=== PATIENT | male | born 1940 | race Caucasian/White ===

== ENCOUNTER 2020-06-14 11:45 | Outpatient (REF) | payer MEDICARE, SELFPAY ==
--- NOTE | 2020-06-14 | XR_ITS ---
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 FINDINGS: There is disc atelectasis left posterior medial base versus borderline sliding hiatal hernia. The lungs otherwise clear. The costophrenic sulci are well-defined. The heart is normal in size. The hilar and mediastinal contours are normal. No acute bony abnormality. XR/XR chest 2V IMPRESSION: 1. Disc atelectasis left posterior medial base versus borderline sliding hiatal hernia. 2. No airspace consolidation or groundglass opacities.
== END 2020-06-14 11:46 | disposition home or self-care (01) ==
LOC: HO.HMGCX 11:45
PROVIDERS: PCP Internal Medicine; Visit Provider Internal Medicine
DX: J44.1 Chronic obstructive pulmonary disease with (acute) exacerbation (principal)
CPT/HCPCS: 71046

== ENCOUNTER 2020-06-19 16:37 | Inpatient (IN) | payer MEDICARE, OTHER, SELFPAY ==
[2020-06-19] VITALS (7 sets, daily range): BP systolic 134–145; BP diastolic 59–89; PULSE 81–100; RESP 16–24; TEMP 36.6–37.7; O2SAT 4–95; BMI 31.1
--- NOTE | 2020-06-19 16:55 | XR_ITS ---
EXAMINATION: XR CHEST CLINICAL INFORMATION: Shortness of breath and chest pain. COMPARISON: 06/14/2020 TECHNIQUE: Frontal view of the chest was obtained. FINDINGS: Cervical fusion hardware noted. Cardiac leads overlie the chest. The lungs are well expanded. Bronchial wall thickening noted. There is no focal consolidation, edema, or effusion. No pneumothorax. The cardiomediastinal silhouette is within normal limits. No acute osseous abnormality. XR/XR chest 1V IMPRESSION: No dense consolidation. Bronchial wall thickening can be seen with a small airways process such as asthma or atypical/viral infection.
--- NOTE | 2020-06-19 16:55 | ECG_ITS ---
Test Reason : DYSPNES Blood Pressure : / mmHG Vent. Rate : 089 BPM Atrial Rate : 089 BPM P-R Int : 170 ms QRS Dur : 082 ms QT Int : 372 ms P-R-T Axes : 068 050 023 degrees QTc Int : 452 ms Sinus rhythm with occasional Premature ventricular complexes and Premature atrial complexes Minimal voltage criteria for LVH, may be normal variant Possible Inferior infarct (cited on or before 15-AUG-2015) Abnormal ECG When compared with ECG of 15-AUG-2015 10:03, Premature ventricular complexes are now Present Premature atrial complexes are now Present Nonspecific T wave abnormality now evident in Inferior leads Referred By: Shahbaz Echeverria Electronically Signed By:Jamie Wilsno
[2020-06-19] MEDS: methylPREDNISolone Sod Succ/PF 125 MG/2 ML VIAL IVPUSH (17:13)
[2020-06-19 17:17] LABS: Basophils Absolute Auto 0.1 X10*3/uL (0.0-0.2); Basophils Percent Auto 0.3 % (0-2); Eosinophils Absolute Auto 0.2 X10*3/uL (0.0-0.4); Eosinophils Percent Auto 1.1 % (0-4); Hematocrit 48.2 % (42-52); Hemoglobin 15.3 g/dl (14.0-18.0); Imm Gran Abs Auto 0.07 X10*3/uL (0.00-0.03); Imm Gran Pct Auto 0.5 % (0.0-0.4); Lymphocytes Absolute Auto 2.1 X10*3/uL (1.2-4.9); Lymphocytes Percent Auto 13.5 % (20-40); MANUAL DIFF FLAG SCAN; Mean Corpuscular HGB Conc 31.7 g/dl (31.0-36.0); Mean Corpuscular Volume 94.5 fL (80-98); Mean Platelet Volume 9.8 fL (9.4-12.4); Monocytes Absolute Auto 1.9 X10*3/uL (0.1-1.2); Monocytes Percent Auto 12.6 % (2-11); Platelet Count 217 X10*3/uL (160-400); Red Cell Distribution Width 12.2 % (11.0-16.0); SCAN SMEAR FLAG 1; White Blood Count 15.3 X10*3/uL (4.8-10.8)
[2020-06-19] MEDS: Albuterol Sulfate 90 MCG 8 GM INHALER 4 PUFF INHALE (17:19)
[2020-06-19 17:20] LABS: D Dimer 558 NG/ML; Partial Thromboplastin Time 28.9 SEC (24.1-38.0)
[2020-06-19] MEDS: Benzonatate 100 MG CAPSULE 200 MG PO (17:36)
[2020-06-19 17:45] LABS: B Type Natriuretic Peptide 54 pg/mL (<100); Troponin-I High Sensitivity 14.9 ng/L (<3.5-35.0)
[2020-06-19 17:46] LABS: SLIDE REVIEW VERIFIED
[2020-06-19 17:49] LABS: Alanine Aminotransferase 22 U/L (0-40); Alkaline Phosphatase 76 U/L (39-117); Anion Gap 18 (12-20); Aspartate Amino Transferase 20 U/L (5-37); Bilirubin Total 0.6 mg/dL (0.0-1.0); Blood Urea Nitrogen 18 mg/dL (9-16); Calcium 8.8 mg/dL (8.4-10.2); Carbon Dioxide 26 mmol/L (22-29); Chloride 101 mmol/L (96-108); Creatinine Clr Calc Pharmacy 52.2; Estimated Glomerular Filt Rate > 60; Glucose Random 92 mg/dL (60-115); Potassium 4.7 mmol/l (3.3-5.1); Sodium 140 mmol/L (135-145); Total Protein 7.4 g/dL (6.5-8.0)
[2020-06-19 17:50] LABS: Lactic Acid 0.9 mmol/L (0.5-2.0)
[2020-06-19 17:55] LABS: COVID-19 Test Negative (Negative)
--- NOTE | 2020-06-19 18:01 | CT_ITS ---
EXAMINATION: CT ANGIOGRAM OF THE CHEST WITH AND WITHOUT CONTRAST (CT PULMONARY ANGIOGRAM FOR PE) CLINICAL INFORMATION: Reason for Exam Chest pain, shortness of breath, rule out PE COMPARISON: Chest x-ray 06/19/2020. CT abdomen pelvis 08/15/2015. TECHNIQUE: Prior to contrast administration, noncontrast localization images were obtained. Subsequently, multidetector volumetric imaging was performed from the thoracic inlet to below the diaphragms following the administration of 68 mL Omnipaque 350 intravenous contrast. No contrast reaction reported Sagittal, coronal, and MIP oblique sagittal reformatted images were obtained on the CT workstation, uploaded to PACS, and reviewed. This CT examination was performed using dose optimization techniques as appropriate, variously including the following: *Automated exposure control *Adjustment of mA and/or kV according to patient size (this includes techniques or standardized protocols for targeted exams where dose is matched to indication/reason for exam; i.e. extremities or head) *Use of iterative reconstruction technique Total exam dose-length product 387 mGy-cm FINDINGS: QUALITY OF STUDY/CONTRAST BOLUS: Satisfactory. PULMONARY ARTERIES: No central or segmental pulmonary emboli. THORACIC AORTA: No aneurysm or dissection. There are vascular calcifications of the thoracic aorta. LUNG: There are a few scattered small hazy and groundglass opacities in the lung parenchyma bilaterally, right greater than left, consistent with inflammatory or infectious etiology. May be atypical infection, including Covid 19. There is linear atelectasis at lung bases. PLEURA: No pleural effusion or pneumothorax. MEDIASTINUM: Normal heart size. No pericardial effusion. No hilar or mediastinal lymphadenopathy. No evidence of septal bowing or right heart strain. Moderate volume coronary artery calcifications. CHEST WALL/AXILLA: No axillary or internal mammary lymphadenopathy. OSSEOUS STRUCTURES: No acute or suspicious osseous abnormality. Multilevel degenerative spondylosis of the spine. UPPER ABDOMEN: Status post cholecystectomy. There is a 2 cm cyst upper pole of left kidney Small hypodensities in liver consistent with hepatic cysts unchanged since 2016. There is fatty atrophy of the pancreas. No inflammation or mass of the pancreas. There is a 1.3 cm nodule right adrenal gland. Density measurement of 24 Hounsfield units. This is nonspecific on a postcontrast study. This is new since prior study CT exam 08/15/2015.. Image 56/63 series 5. No reflux of contrast into the hepatic veins to suggest elevated right heart pressures. CT/CT angio chest PE protocol IMPRESSION: 1. No evidence of pulmonary embolism. 2. There are a few scattered small hazy groundglass opacities and lung parenchyma consistent with atypical infection including Covid 19. Clinically correlate. 3. Status post cholecystectomy. 4. 1.3 cm right adrenal nodule is new since CAT scan 08/15/2015 but indeterminate on this postcontrast exam for etiology. A dedicated CT adrenal study would be helpful for further evaluation. 5. Hepatic cysts. 6. Upper pole left renal cyst. VTE: negative
[2020-06-19 18:06] LABS: Appearance Urine CLEAR; Color Urine YELLOW; Glucose Urine UA NEG (NEG); Leukocyte Esterase Urine NEG (NEG); Nitrite Urine NEG (NEG); Urine Blood NEG (NEG); Urine Ketones NEG (NEG); Urine Protein NEG (NEG-TRACE)
[2020-06-19] MEDS: iohexoL 350 MG/ML 100 ML INFUS..BTL IV (18:46)
--- NOTE | 2020-06-19 19:47 | ED_ITS ---
HPI - General Adult General Chief complaint: Dyspnea Stated complaint: cp Time Seen by Provider: 06/19/20 16:54 Source: patient Limitations: no limitations History of Present Illness HPI narrative: 80-year-old male who presents emergency department for evaluation of chest pain, back pain and shortness of breath. The patient states that he was recently treated for pneumonia on May 24, 2020 that he never got over these symptoms. He cannot recount details of his treatment with the medications that he was taking for pneumonia. He states that he had a sudden onset of shortness of breath and chest pain. He states the symptoms started 1 hour prior to coming to the emergency department. He states that the pain is located in the center of his chest wall. The pain is a sharp constant pain that did radiate to his back. The pain was worse with breathing and with movement. He states he has had a cough which is nonproductive. He denied fever or chills. The patient does have a history asthma/COPD. Related Data Allergies Allergy/AdvReac Type Severity Reaction Status Date / Time ibuprofen Allergy Unknown Gastrointestinal Verified 06/19/20 20:06 Upset Review of Systems Review of Systems: Yes all other systems are reviewed and are negative Neurologic: Reports Abnormal speech present [facility] Past Medical History [facility] Narrative: The patient has a history of hypertension, asthma/COPD, he is a former smoker, but quit 40 years ago, he denies current tobacco use, denies alcohol use, denies drug use. Medical History (Updated 06/19/20 @ 20:07 by Shahbaz Echeverria MD) HTN (hypertension) Social History Social History Smoking Status: Former smoker Smoked in Last 30 Days: No Use of substances other than those prescribed or required for medical reasons: No Advance Directives: No Advance Directives Information Provided: No Physical Exam Vital Signs: Vital Signs: Last Vital Signs Temp 99.0 F 06/19/20 18:00 Pulse 100 06/19/20 18:00 Resp 22 H 06/19/20 18:00 BP 139/75 06/19/20 18:00 Pulse Ox 4 L 06/19/20 18:00 Body Mass Index 31.1 Const: General: cooperative and ill appearing (Respiratory distress) acutely Nutritional Appearance: obese Orientation/consciousness: oriented to person and oriented to place Limitations: no limitations HENMT: Head: Yes normal to inspection, Yes normocephalic and Yes atraumatic Ears: external ears normal General nose exam: Normal external nose present Face and sinus: Yes normal facial exam Mouth: Normal oral and palatal mucosa present Throat: Yes posterior oropharynx normal Eyes: Periorbital: periorbital findings normal Eyelids: Yes eyelids normal Conjunctivae: conjunctivae normal Sclerae: sclerae normal Corneas: corneas normal Pupils: Equal, round and reactive pupils present Direct Ophthalmoscopy: normal light reflex Neck: Neck: Yes full ROM, Yes no lymphadenopathy, Yes no meningeal signs, Yes trachea midline and Yes supple Chest: Chest palpation & inspection: normal inspection of the chest and tenderness sternum (Moderate) Resp: Effort & Inspection: normal respiratory effort Auscultation: crackles bilateral, rales bilateral and rhonchi lower bilaterally Cardio: Rate: regular rate Rhythm: regular rhythm Heart sounds: S1 normal heart sound present, S2 normal heart sound present and no murmurs GI: Inspection: Yes normal to inspection Palpation (GI): Soft to palpation, nontender, no guarding, not rigid and No hepatosplenomegaly present : General: Yes no CVA tenderness Back/Spine/Pelvis: Back: no CVA tenderness Cervical Spine: normal cervical lordosis Thoracic/Lumbar Spine: thoracic and lumbar spine normal to inspection Skin: Lesions: no lesions Rashes: no rashes Wounds: no wounds Neuro: General: oriented to person, oriented to place and no meningeal signs Cranial nerves: Yes Equal, round and reactive pupils present Cognition (Neuro): normal cognition Speech: Abnormal speech present Motor exam (neuro): 5/5 motor strength present throughout Extrem: General: Yes normal to inspection and Yes full ROM Psych: Appearance: well kempt Mental Status: mental status grossly normal Speech and movement: Normal speech and movement present Affect: normal affect Attitude: cooperative Thought process: Normal thought process present Thought content: Normal thought content present Course Course Course Narrative: 80-year-old male who presented to the emergency department for evaluation sudden onset of chest pain and shortness of breath 1 hour prior to coming to the emergency department patient does have a history emphysema/asthma and was treated in April 2020 for pneumonia which he believes he did not fully recover from. On presentation the patient was hypoxic with an O2 saturation of 89% on room air, he was tachypneic with a respiratory rate of 17, temperature was 99? F blood pressure was 143/89. The patient's lung exam r evealed diffuse wheezing, rhonchi and rales. The patient was given Solu-Medrol 125 mg IV, albuterol inhaler x4 puffs and placed on oxygen. Patient required 5 L/minute oxygen via nasal cannula to maintain O2 saturations above 90%. Chest x-ray revealed no acute disease, D-dimer was elevated therefore a CT a pulmonary embolism protocol was obtained. CT scan was consistent with an atypical pneumon ia, no pulmonary embolism or dissection was noted. The patient's COVID-19 screen is negative. I ordered Zosyn 4.5 g IV to treat the patient for an atypical pneumonia. I did discuss the patient's presentation with the covering hospitalist the patient will be admitted for further management. Initial troponin was 14.9 which is not elevated but detectable. I did order a repeat 3 hour troponin which is pending. His 12 EKG did not reveal any acute ST segment elevation or depression. Medical Decision Making Lab Data Result diagrams: 06/19/20 17:04 06/19/20 17:04 Labs: Lab Results 06/19/20 06/19/20 06/19/20 Range/Units 17:04 17:04 17:04 WBC 15.3 H (4.8-10.8) X10*3/uL RBC 5.10 (4.60-5.80) X10*6/uL Hgb 15.3 (14.0-18.0) g/dl Hct 48.2 (42-52) % MCV 94.5 (80-98) fL MCH 30.0 (27.0-33.0) pg MCHC 31.7 (31.0-36.0) g/dl RDW 12.2 (11.0-16.0) % Plt Count 217 (160-400) X10*3/uL MPV 9.8 (9.4-12.4) fL Immature Gran % (Auto) 0.5 H (0.0-0.4) % Neut % (Auto) 72.0 (45-73) % Lymph % (Auto) 13.5 L (20-40) % [place] % (Auto) 12.6 H (2-11) % Eos % (Auto) 1.1 (0-4) % Baso % (Auto) 0.3 (0-2) % Lymph # (Auto) 2.1 (1.2-4.9) X10*3/uL [place] # (Auto) 1.9 H (0.1-1.2) X10*3/uL Eos # (Auto) 0.2 (0.0-0.4) X10*3/uL Baso # (Auto) 0.1 (0.0-0.2) X10*3/uL Abs Immat Gran (auto) 0.07 H (0.00-0.03) X10*3/uL Absolute Neuts (auto) 11.0 H (2.0-8.3) X10*3/uL Absolute Nucleated RBC 0.000 (0.0-0.012) X10*3/uL Nucleated RBC % (auto) 0.0 (0.0-0.2) /100WBC Smear Tech's Comments VERIFIED APTT 28.9 (24.1-38.0) SEC D-Dimer 558 NG/ML Sodium 140 (135-145) mmol/L Potassium 4.7 (3.3-5.1) mmol/l Chloride 101 (96-108) mmol/L Carbon Dioxide 26 (22-29) mmol/L Anion Gap 18 (12-20) BUN 18 H (9-16) mg/dL Creatinine 1.13 (0.5-1.4) mg/dL Estim Creat Clear Calc 52.2 Estimated GFR > 60 Random Glucose 92 (60-115) mg/dL Lactic Acid (0.5-2.0) mmol/L Calcium 8.8 (8.4-10.2) mg/dL Total Bilirubin 0.6 (0.0-1.0) mg/dL AST 20 (5-37) U/L ALT 22 (0-40) U/L Alkaline Phosphatase 76 (39-117) U/L Troponin I High Sens (<3.5-35.0) ng/L B-Natriuretic Peptide (<100) pg/mL Total Protein 7.4 (6.5-8.0) g/dL Albumin 4.0 (3.5-5.0) g/dL Urine Color Urine Appearance Urine pH (5.0-8.0) Ur Specific [employer] (1.005-1.025) Urine Protein (NEG-TRACE) MG/DL Urine Glucose (UA) (NEG) MG/DL Urine Ketones (NEG) MG/DL Urine Blood (NEG) Urine Nitrite (NEG) Ur Leukocyte Esterase (NEG) COVID-19 (HECTOR) (Negative) COVID-19 Clin Com 06/19/20 06/19/20 06/19/20 Range/Units 17:04 17:04 17:18 WBC (4.8-10.8) X10*3/uL RBC (4.60-5.80) X10*6/uL Hgb (14.0-18.0) g/dl Hct (42-52) % MCV (80-98) fL MCH (27.0-33.0) pg MCHC (31.0-36.0) g/dl RDW (11.0-16.0) % Plt Count (160-400) X10*3/uL MPV (9.4-12.4) fL Immature Gran % (Auto) (0.0-0.4) % Neut % (Auto) (45-73) % Lymph % (Auto) (20-40) % [place] % (Auto) (2-11) % Eos % (Auto) (0-4) % Baso % (Auto) (0-2) % Lymph # (Auto) (1.2-4.9) X10*3/uL [place] # (Auto) (0.1-1.2) X10*3/uL Eos # (Auto) (0.0-0.4) X10*3/uL Baso # (Auto) (0.0-0.2) X10*3/uL Abs Immat Gran (auto) (0.00-0.03) X10*3/uL Absolute Neuts (auto) (2.0-8.3) X10*3/uL Absolute Nucleated RBC (0.0-0.012) X10*3/uL Nucleated RBC % (auto) (0.0-0.2) /100WBC Smear Tech's Comments APTT (24.1-38.0) SEC D-Dimer NG/ML Sodium (135-145) mmol/L Potassium (3.3-5.1) mmol/l Chloride (96-108) mmol/L Carbon Dioxide (22-29) mmol/L Anion Gap (12-20) BUN (9-16) mg/dL Creatinine (0.5-1.4) mg/dL Estim Creat Clear Calc Estimated GFR Random Glucose (60-115) mg/dL Lactic Acid 0.9 (0.5-2.0) mmol/L Calcium (8.4-10.2) mg/dL Total Bilirubin (0.0-1.0) mg/dL AST (5-37) U/L ALT (0-40) U/L Alkaline Phosphatase (39-117) U/L Troponin I High Sens 14.9 (<3.5-35.0) ng/L B-Natriuretic Peptide 54 (<100) pg/mL Total Protein (6.5-8.0) g/dL Albumin (3.5-5.0) g/dL Urine Color Urine Appearance Urine pH (5.0-8.0) Ur Specific [employer] (1.005-1.025) Urine Protein (NEG-TRACE) MG/DL Urine Glucose (UA) (NEG) MG/DL Urine Ketones (NEG) MG/DL Urine Blood (NEG) Urine Nitrite (NEG) Ur Leukocyte Esterase (NEG) COVID-19 ([facility]CTOR) Negative (Negative) COVID-19 Clin Com See Note 06/19/20 Range/Units 17:58 WBC (4.8-10.8) X10*3/uL RBC (4.60-5.80) X10*6/uL Hgb (14.0-18.0) g/dl Hct (42-52) % MCV (80-98) fL MCH (27.0-33.0) pg MCHC (31.0-36.0) g/dl RDW (11.0-16.0) % Plt Count (160-400) X10*3/uL MPV (9.4-12.4) fL Immature Gran % (Auto) (0.0-0.4) % Neut % (Auto) (45-73) % Lymph % (Auto) (20-40) % [place] % (Auto) (2-11) % Eos % (Auto) (0-4) % Baso % (Auto) (0-2) % Lymph # (Auto) (1.2-4.9) X10*3/uL [place] # (Auto) (0.1-1.2) X10*3/uL Eos # (Auto) (0.0-0.4) X10*3/uL Baso # (Auto) (0.0-0.2) X10*3/uL Abs Immat Gran (auto) (0.00-0.03) X10*3/uL Absolute Neuts (auto) (2.0-8.3) X10*3/uL Absolute Nucleated RBC (0.0-0.012) X10*3/uL Nucleated RBC % (auto) (0.0-0.2) /100WBC Smear Tech's Comments APTT (24.1-38.0) SEC D-Dimer NG/ML Sodium (135-145) mmol/L Potassium (3.3-5.1) mmol/l Chloride (96-108) mmol/L Carbon Dioxide (22-29) mmol/L Anion Gap (12-20) BUN (9-16) mg/dL Creatinine (0.5-1.4) mg/dL Estim Creat Clear Calc Estimated GFR Random Glucose (60-115) mg/dL Lactic Acid (0.5-2.0) mmol/L Calcium (8.4-10.2) mg/dL Total Bilirubin (0.0-1.0) mg/dL AST (5-37) U/L ALT (0-40) U/L Alkaline Phosphatase (39-117) U/L Troponin I High Sens (<3.5-35.0) ng/L B-Natriuretic Peptide (<100) pg/mL Total Protein (6.5-8.0) g/dL Albumin (3.5-5.0) g/dL Urine Color YELLOW Urine Appearance CLEAR Urine pH 6.0 (5.0-8.0) Ur Specific [employer] 1.020 (1.005-1.025) Urine Protein NEG (NEG-TRACE) MG/DL Urine Glucose (UA) NEG (NEG) MG/DL Urine Ketones NEG (NEG) MG/DL Urine Blood NEG (NEG) Urine Nitrite NEG (NEG) Ur Leukocyte Esterase NEG (NEG) COVID-19 ([facility]CTOR) (Negative) COVID-19 Clin Com ECG Data Attestation: I personally reviewed and interpreted this ECG as follows: Interpretation: 1653: Sinus rhythm with occasional PVC, rate of 89, normal [place], QRS and QTC intervals, small Q-waves in lead 2, 3 and AVF, peaked T-wave in V1, LVH by voltage criteria, no old EKG for comparison. Critical Care Time Critical Care Time Total Critical Care Time: 45 Attestation: Critical Care: The patient was critically ill with a high probability of imminent or life threatening deterioration. I spent greater than 30 minutes of discontinuous time evaluating the patient,delivering critical care at the bedside, discussing and evaluating pertinent data with consultants. Critical care time does not include time spent performing separately billable procedures or teaching. Total time spent performing critical care was 45 minutes. Discharge Plan Discharge Clinical Impression: Acute exacerbation of chronic obstructive airways disease, Hypoxia Pneumonia Qualifiers: Pneumonia type: due to unspecified organism Laterality: bilateral Lung location: unspecified part of lung Qualified Code(s): J18.9 - Pneumonia, unspecified organism Patient Disposition: Admitted As Inpatient
--- NOTE | 2020-06-19 19:54 | PC.NURSE ---
plan for pt to be admitted at this time pt o2sat 92-93% on 5L oxygen via nasal canula, it was noted to drop to 86% with a good pleth when pt did not have NC properly placed in his nose. Pt alert and aware x3, responding appropriately to conversation, congested cough noted.
[2020-06-19] MEDS: Piperacillin Sodium/Tazobactam 4.5 GM in 0.9 % Sodium Chloride 100 ML IV (20:13)
[2020-06-19 20:59] LABS: Troponin-I High Sensitivity 12.3 ng/L (<3.5-35.0)
--- NOTE | 2020-06-19 21:30 | P.HPHOSP_ITS ---
History of Present Illness Date of Service: 06/19/20 Chief Complaint: Shortness of breath and cough 80-year-old male with history of HTN and COPD with chest pain and back pain as well as shortness of breath. On or about May 24, he was evaluated in walkin clinic and prescribed Azithromycin by Dr. Marvin Carey, also given 5 day course of prednisone at that time but has not quite recovered. He tested negati ve for covid around that time and today. Today, he had acute onset of shortness of breath and chest and back pain around 1 pm. He relates a sharp, constant mid chest pain that radiates to the back, he has had similar pain the day prior and took oxycodone-Acetamenophen. He has a wet cough since April, no fever or chills. CXR shows no Pneumonia. CTA of chest show no PA but some ground-glass opacities in lung parenchyma consistent with atypical infection including Covid 19. Has been given Zosyn in ED, Solumedrol and Albuterol Nebulizer. Review of Systems Review of Systems: Yes all other systems are reviewed and are negative Constitutional: Constitutional: Denies chills and Denies fever(s) Cardiovascular: Cardiovascular: Reports chest pain and Reports dyspnea Respiratory: Respiratory: Reports cough and Reports dyspnea Gastrointestinal: Gastrointestinal: Denies abdominal pain, Denies nausea and Denies vomiting PMFSH Medical History BPH (benign prostatic hyperplasia) COPD (chronic obstructive pulmonary disease) HTN (hypertension) Pertinent family history: Mother had diabetes Social History Smoking Status: Former smoker Tobacco Type: Cigarette service: No Current occupational status: retired [employer] Allergies Allergy/AdvReac Type Severity Reaction Status Date / Time ibuprofen Allergy Unknown Gastrointestinal Verified 06/19/20 20:06 Upset Home Medications Medication Instructions Recorded Confirmed Type Trelegy Ellipta 1 inh INHALATION BEDTIME 06/19/20 06/19/20 History albuterol sulfate [ProAir HFA] 2 puff INHALATION QID PRN 06/19/20 06/19/20 History atenolol 25 mg PO DAILY 06/19/20 06/19/20 History fluticasone propionate 1 spray INTRANASAL DAILY 06/19/20 06/19/20 History losartan 100 mg PO DAILY 06/19/20 06/19/20 History oxycodone-acetaminophen 1 tab PO QID PRN 06/19/20 06/19/20 History tamsulosin 0.4 mg PO BEDTIME 06/19/20 06/19/20 History Physical Exam Vital Signs and Narrative: Vital Signs: Last Vital Signs Temp 99.8 F 06/19/20 20:00 Pulse 100 06/19/20 20:00 Resp 22 H 06/19/20 20:00 BP 143/83 H 06/19/20 20:00 Pulse Ox 4 L 06/19/20 20:00 Body Mass Index 31.1 Const: Orientation/consciousness: patient oriented x3 Eyes: Visual Blanco: normal visual blanco by confrontation Sclerae: sclerae normal Neck: Yes no lymphadenopathy and Yes supple Resp: Effort & Inspection: normal respiratory effort, able to speak in complete sentences and no audible wheezes Cardio: Jugular venous distension: no JVD Rhythm: regular rhythm Heart sounds: S1 normal heart sound present and S2 normal heart sound present GI: Inspection: Yes normal to inspection Skin: General skin exam: no rashes or lesions noted Neuro: General: patient oriented x3 Motor exam (neuro): 5/5 motor strength present throughout Extrem: Right upper extremity: no cyanosis and no edema Left upper extremity: no cyanosis and no edema Psych: Appearance: grossly normal Results Labs CBC and Chem 7: 06/20/20 05:39 06/21/20 05:53 Labs: Laboratory Results - last 24 hr 06/19/20 06/19/20 06/19/20 17:04 17:04 17:04 MCV 94.5 MCH 30.0 MCHC 31.7 RDW 12.2 Plt Count 217 MPV 9.8 Immature Gran % (Auto) 0.5 H Neut % (Auto) 72.0 Lymph % (Auto) 13.5 L [place] % (Auto) 12.6 H Eos % (Auto) 1.1 Baso % (Auto) 0.3 Lymph # (Auto) 2.1 [place] # (Auto) 1.9 H Eos # (Auto) 0.2 Baso # (Auto) 0.1 Abs Immat Gran (auto) 0.07 H Absolute Neuts (auto) 11.0 H Absolute Nucleated RBC 0.000 Nucleated RBC % (auto) 0.0 Smear Tech's Comments VERIFIED APTT 28.9 D-Dimer 558 Anion Gap 18 Estim Creat Clear Calc 52.2 Estimated GFR > 60 Random Glucose 92 Lactic Acid Calcium 8.8 Total Bilirubin 0.6 AST 20 ALT 22 Alkaline Phosphatase 76 Troponin I High Sens B-Natriuretic Peptide Total Protein 7.4 Albumin 4.0 Urine Color Urine Appearance Urine pH Ur Specific [place] Urine Protein Urine Glucose (UA) Urine Ketones Urine Blood Urine Nitrite Ur Leukocyte Esterase COVID-19 ([facility]) COVID-19 Clin Com 06/19/20 06/19/20 06/19/20 17:04 17:04 17:18 MCV MCH MCHC RDW Plt Count MPV Immature Gran % (Auto) Neut % (Auto) Lymph % (Auto) [place] % (Auto) Eos % (Auto) Baso % (Auto) Lymph # (Auto) [place] # (Auto) Eos # (Auto) Baso # (Auto) Abs Immat Gran (auto) Absolute Neuts (auto) Absolute Nucleated RBC Nucleated RBC % (auto) Smear Tech's Comments APTT D-Dimer Anion Gap Estim Creat Clear Calc Estimated GFR Random Glucose Lactic Acid 0.9 Calcium Total Bilirubin AST ALT Alkaline Phosphatase Troponin I High Sens 14.9 B-Natriuretic Peptide 54 Total Protein Albumin Urine Color Urine Appearance Urine pH Ur Specific [place] Urine Protein Urine Glucose (UA) Urine Ketones Urine Blood Urine Nitrite Ur Leukocyte Esterase COVID-19 ([facility]) Negative COVID-Kiromic Com See Note 06/19/20 06/19/20 17:58 20:15 MCV MCH MCHC RDW Plt Count MPV Immature Gran % (Auto) Neut % (Auto) Lymph % (Auto) [place] % (Auto) Eos % (Auto) Baso % (Auto) Lymph # (Auto) [place] # (Auto) Eos # (Auto) Baso # (Auto) Abs Immat Gran (auto) Absolute Neuts (auto) Absolute Nucleated RBC Nucleated RBC % (auto) Smear Tech's Comments APTT D-Dimer Anion Gap Estim Creat Clear Calc Estimated GFR Random Glucose Lactic Acid Calcium Total Bilirubin AST ALT Alkaline Phosphatase Troponin I High Sens 12.3 B-Natriuretic Peptide Total Protein Albumin Urine Color YELLOW Urine Appearance CLEAR Urine pH 6.0 Ur Specific [place] 1.020 Urine Protein NEG Urine Glucose (UA) NEG Urine Ketones NEG Urine Blood NEG Urine Nitrite NEG Ur Leukocyte Esterase NEG COVID-19 ([facility]) COVID-19 Clin Com Imaging Radiologist's Impressions: Impressions Chest X-Ray 06/19/20 16:55 IMPRESSION: No dense consolidation. Bronchial wall thickening can be seen with a small airways process such as asthma or atypical/viral infection. Chest CTA 06/19/20 18:01 IMPRESSION: 1. No evidence of pulmonary embolism. 2. There are a few scattered small hazy groundglass opacities and lung parenchyma consistent with atypical infection including Covid 19. Clinically correlate. 3. Status post cholecystectomy. 4. 1.3 cm right adrenal nodule is new since CAT scan 08/15/2015 but indeterminate on this postcontrast exam for etiology. A dedicated CT adrenal study would be helpful for further evaluation. 5. Hepatic cysts. 6. Upper pole left renal cyst. VTE: negative Assessment and Plan (1) Pneumonia: Qualifiers: Laterality: bilateral Lung location: unspecified part of lung Pneumoni a type: due to unspecified organism Qualified Code(s): J18.9 - Pneumonia, unspecified organism Status: Acute (2) Acute exacerbation of chronic obstructive airways disease: Problem details: CT shows no lobar pneumonia and no acute infiltrate Patient likely bronchiectasis,COPD Status: Acute (3) HTN (hypertension): Status: Acute (4) BPH (benign prostatic hyperplasia): Status: Acute 80-year-old male with history of COPD presented with for shortness of breath or chest pain/back pain and COPD exacerbation, PNA. Negative covid yet CT with covid pattern finding. 1. PNA--Atycpical, he was recently treated with Azithroycin at the at the beginning of the month but has not recovered. -Got Zosyn in ED, will continue on Doxy -Will put in isolation for person under investigaton -check viral respiratory pannel -check SARS-CoV-2 antibody -id consult 2. COPD exacerbation with some hypoxia. -Treat with Decadron -Bronchodilators 3. BPH--continue Finesteride 4. HTN--controlled, continue Atenolol and Losartan 5. Back pain/chest pain--ECG no ischemic change, trop normal--likely muscular/skeletal pain. PRN pain med DVT prophylaxis with heparin.
[2020-06-19] MEDS: Heparin Sodium,Porcine 5,000 UNIT/ML VIAL 5000 UNIT SUBCUT (23:11)
[2020-06-19] MEDS: Doxycycline Hyclate 100 MG in 0.9 % Sodium Chloride 250 ML 166.67 MG IV (23:13)
[2020-06-19] MEDS: 0.9 % Sodium Chloride Flush 3 ML SYRINGE IVFLUSH (23:17)
[2020-06-20] VITALS (9 sets, daily range): BP systolic 126–157; BP diastolic 60–87; PULSE 68–100; RESP 18–20; TEMP 36.3–37.1; O2SAT 80–98; BMI 31.1
[2020-06-20 06:26] LABS: MANUAL DIFF FLAG NO
[2020-06-20 06:54] LABS: Basophils Percent Auto 0.1 % (0-2); Hematocrit 44.3 % (42-52); Hemoglobin 14.1 g/dl (14.0-18.0); Imm Gran Abs Auto 0.06 X10*3/uL (0.00-0.03); Imm Gran Pct Auto 0.5 % (0.0-0.4); Lymphocytes Absolute Auto 0.9 X10*3/uL (1.2-4.9); Lymphocytes Percent Auto 7.8 % (20-40); Mean Corpuscular HGB Conc 31.8 g/dl (31.0-36.0); Mean Corpuscular Hemoglobin 30.1 pg (27.0-33.0); Mean Corpuscular Volume 94.7 fL (80-98); Mean Platelet Volume 10.1 fL (9.4-12.4); Monocytes Absolute Auto 0.4 X10*3/uL (0.1-1.2); Monocytes Percent Auto 3.2 % (2-11); Neutrophils Absolute Auto 10.6 X10*3/uL (2.0-8.3); Neutrophils Percent Auto 88.4 % (45-73); Platelet Count 195 X10*3/uL (160-400); Red Blood Count 4.68 X10*6/uL (4.60-5.80); Red Cell Distribution Width 12.1 % (11.0-16.0)
[2020-06-20] MEDS: Albuterol/Iprat 2.5/0.5MG 3 ML AMPUL.NEB 1.5 ML INHALE (07:24)
--- NOTE | 2020-06-20 09:03 | MHC.CM.PN ---
IMM 06/20/20 MALE 80 DX PNA COPD EXACERBATION. 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 HE USES A CANE PRN. A HCP has been documented and placed on the chart. DP home no services family transport. CM will follow to assess for a change in DC needs.
[2020-06-20] MEDS: 0.9 % Sodium Chloride Flush 3 ML SYRINGE IVFLUSH ×2 (09:21→21:29)
[2020-06-20] MEDS: dexAMETHasone 6 MG TABLET PO (09:21)
[2020-06-20] MEDS: atenoloL 25 MG TABLET PO (09:21)
[2020-06-20] MEDS: Losartan Potassium 50 MG TABLET 100 MG PO (09:21)
[2020-06-20] MEDS: Heparin Sodium,Porcine 5,000 UNIT/ML VIAL 5000 UNIT SUBCUT ×2 (09:23→21:29)
[2020-06-20] MEDS: Fluticasone Propionate Nasal 16 GM SPRAY 1 SPRAY NOSTRIL-B (09:23)
[2020-06-20 09:52] LABS: Adenovirus PCR Not Detected (Not Detect.); Bordetella parapertussis PCR Not Detected (Not Detect.); Bordetella pertussis PCR Not Detected (Not Detect.); Chlamydia pneumoniae PCR Not Detected (Not Detect.); Coronavirus 229E PCR Not Detected (Not Detect.); Coronavirus HKU1 PCR Not Detected (Not Detect.); Coronavirus NL63 PCR Not Detected (Not Detect.); Coronavirus OC43 PCR Not Detected (Not Detect.); Human metapneumovirus PCR Not Detected (Not Detect.); Influenza A PCR Not Detected (Not Detect.); Influenza B PCR Not Detected (Not Detect.); Mycoplasma pneumoniae PCR Not Detected (Not Detect.); Parainfluenza 1 PCR Not Detected (Not Detect.); Parainfluenza 2 PCR Not Detected (Not Detect.); Parainfluenza 3 PCR Not Detected (Not Detect.); Parainfluenza 4 PCR Not Detected (Not Detect.); RSV PCR Not Detected (Not Detect.); Rhino/Enterovirus PCR Not Detected (Not Detect.); SARS-CoV-2 PCR Not Detected (Not Detect.)
[2020-06-20] MEDS: Albuterol/Iprat 2.5/0.5MG 3 ML AMPUL.NEB INHALE ×2 (11:08→17:01)
[2020-06-20] MEDS: Doxycycline Hyclate 100 MG in 0.9 % Sodium Chloride 250 ML 166.67 MG IV (11:29)
--- NOTE | 2020-06-20 12:08 | P.CDIC_ITS ---
CDI Concurrent Query Service Date: 06/20/20 Documentation Clarification: Please clarify if you are treating a proba ble/suspected/likely or confirmed: Acute Hypoxic Respiratory Failure No Respiratory Failure Acute Resp. Failure with hypoxia Provider Response: Acute Respiratory Failure (with hypoxia) PLEASE DO NOT DELETE/MODIFY EXISTING CONTENT Additional information is needed in order to code to the highest accuracy and appropriate Severity of Illness (SOI). Please clarify the information noted below in your progress notes and discharge summary. Risk Factors/Clinical Indicators/Treatments 80 year old male admitted with dyspnea, chest pain, respiratory distress, hypoxic with SAT 89% room air Respiratory rate range 22 - 18 Treated with oxygen at 4 - [address] [place] [address] Chest: Atypical Pneumonia Per H&P: Acute Exacerbation of COPD with Hypoxia COVID negative CDS: Ruth Zamora RN Contact Number: [phone] Please Review the information above and exercise your independent professional judgment in responding to the query. If you concur, pleas document in the PROGRESS NOTES and DISCHARGE SUMMARY. If you do not agree with the query, please document in the query above. THIS QUERY IS PART OF THE PERMANENT MEDICAL RECORD
--- NOTE | 2020-06-20 15:25 | P.PNIM_ITS ---
Subjective Subjective Date of Service: 06/20/20 Interval History: seen and examined feels better, was hoping to go home today ROS General - no fevers or chills Cardiovascular - no chest pain Respiratory - ++SOB/Cough Abdominal- no abdominal pain, nausea, vomiting, diarrhea Physical Exam Vital Signs: Vital Signs: Last Vital Signs Temp 97.3 F 06/20/20 11:20 Pulse 79 06/20/20 11:20 Resp 20 06/20/20 11:20 BP 147/71 H 06/20/20 11:20 Pulse Ox 96 06/20/20 11:20 Body Mass Index 31.1 Const: Other: General - no acute distress, appears comfortable Cardiovascular - regular rate and rhythm, S1-S2 Lungs - mild exp. wheezing Abdomen - soft, nontender, no rebound or guarding Extremities - no edema bilaterally Neuro - awake and alert, no focal deficits Objective Data Current Medications Generic Name Dose Route Start Last Admin Trade Name Freq PRN Reason Stop Dose Admin Acetaminophen 650 mg 06/19/20 21:27 Acetaminophen Supp 650 Mg Supp.Rect [place] Q6H PRN Pain, Mild (Pain Scale 1-3) Albuterol/Ipratropium 3 ml 06/20/20 12:00 06/20/20 11:08 Albuterol/Iprat 2.5/0.5mg 3 Ml Ampul.Neb INHALE 3 ml RQ6H KRISTIN Administration Atenolol 25 mg 06/20/20 09:00 06/20/20 09:21 Atenolol 25 Mg Tablet PO 25 mg DAILY KRITSIN Administration Protocol Dexamethasone 6 mg 06/20/20 09:00 06/20/20 09:21 Dexamethasone 6 Mg Tablet PO 6 mg DAILY KRISTIN Administration Fluticasone Propionate 1 spray 06/20/20 09:00 06/20/20 09:23 Fluticasone Propionate Nasal 16 Gm [place] NOSTRIL-B 1 spray DAILY KRISTIN Administration Heparin Sodium (Porcine) 5,000 unit 06/19/20 21:30 06/20/20 09:23 Heparin Sodium,Porcine 5,000 Unit/Ml Vial SUBCUT 5,000 unit Q12H KRISTIN Administration Doxycycline Hyclate 100 mg/ 250 mls @ 166.67 mls/hr 06/19/20 23:00 06/20/20 13:14 Sodium Chloride IV Infused Q12H KRISTIN Infusion Losartan Potassium 100 mg 06/20/20 09:00 06/20/20 09:21 Losartan Potassium 50 Mg Tablet PO 100 mg DAILY KRISTIN Administration Protocol Magnesium Hydroxide 30 ml 06/19/20 21:27 Milk Of Magnesia 30 Ml Oral.Susp PO DAILY PRN Constipation Non-Formulary Medication 1 inhalation 06/20/20 21:00 Qgcxzdodobz-Phhgancaz-Xpiaiyno [Trelegy Ellipta] INHALE BEDTIME KRISTIN Ondansetron HCl 4 mg 06/19/20 21:27 Ondansetron Hcl 4 Mg/2 Ml Vial IVPUSH Q8H PRN Nausea and Vomiting Oxycodone HCl 5 mg 06/19/20 21:26 Oxycodone Hcl Immed Release 5 Mg Tablet PO QID PRN Pain (Scale Score 4-6) Pharmacy Consult 1 each 06/19/20 20:11 Consult Rx Perform Med Rec MISCELLANE ONCE PRN Consult order Sodium Chloride 3 ml 06/20/20 00:00 06/20/20 09:21 0.9 % Sodium Chloride Flush 3 Ml Syringe IVFLUSH 3 ml QSHIFT KRISTIN Administration Tamsulosin HCl 0.4 mg 06/20/20 21:00 Tamsulosin Hcl 0.4 Mg Capsule PO BEDTIME [facility] Labs CBC & Chem 7: 06/20/20 05:39 06/19/20 17:04 Microbiology Microbiology Results: Microbiology 06/19/20 17:18 Blood - Venous Blood Culture - Final Assessment and Plan (1) COPD (chronic obstructive pulmonary disease): Status: Acute Assessment and Plan: This is a 80 yo M admitted for acute resp failure with hypoxia secondary to codp exacerbation, which is suspected due to atypical pneumonia vs viral. 1. Acute resp failure with hypoxia due to copd, possible atypical / viral pneumonia tolerating 2L by NC, wean as tolerated doxy and decadron f/u cultures ID consult COVID 19 negative / resp pathogen panel negative 2. BPH finesteride 3. HTN stable, continue home meds Full code Dvt pptx, heparin
--- NOTE | 2020-06-20 16:13 | W.PM.IDCN ---
History of Present Illness Data of Consult Service Date: 06/20/20 Requesting physician: Marques Smith Primary Care Provider: Unknown Physician HPI Reason for consult: shortness of breath He presents to hospital with 7/10 chest pain substernal for a day worsening and shortness of breath He has no fever or chills He mentions that he had pneumonia 05/24 and felt never got better He says he feels somewhat better now He has no COVID Review of Systems Review of Systems: Yes all other systems are reviewed and are negative Respiratory: Respiratory: Reports chest congestion PMFSH Past Medical History Medical History BPH (benign prostatic hyperplasia) COPD (chronic obstructive pulmonary disease) HTN (hypertension) Family History Family history: reviewed and not pertinent Social History Social History Smoking Status: Former smoker Tobacco Type: Cigarette Smoked in Last 30 Days: No Use of substances other than those prescribed or required for medical reasons: No Currently Displaying Signs/Symptoms of Drug Intoxication Withdrawal: No Advance Directives: No Advance Directives Information Provided: No Do you have thoughts of harming others: None Do you have a plan to hurt others: No Plan service: No Current occupational status: retired Meds Allergies Allergy/AdvReac Type Severity Reaction Status Date / Time ibuprofen Allergy Unknown Gastrointestinal Verified 06/19/20 20:06 Upset Home Medications Medication Instructions Recorded Confirmed Type albuterol sulfate [ProAir HFA] 2 puff INHALATION QID PRN 06/19/20 06/19/20 History atenolol 25 mg PO DAILY 06/19/20 06/19/20 History fluticasone propionate [Flonase] 1 spray INTRANASAL DAILY 06/19/20 06/19/20 History yfcvwrapagm-kzogtvbax-blfclejn 1 inh INHALATION BEDTIME 06/19/20 06/19/20 History [Trelegy Ellipta] losartan 100 mg PO DAILY 06/19/20 06/19/20 History oxycodone-acetaminophen 1 tab PO QID PRN 06/19/20 06/19/20 History tamsulosin 0.4 mg PO BEDTIME 06/19/20 06/19/20 History Physical Exam Vital Signs: Vital Signs: Last Vital Signs Temp 98.8 F 06/20/20 15:39 Pulse 79 06/20/20 15:39 Resp 18 06/20/20 15:39 BP 131/61 06/20/20 15:39 Pulse Ox 94 06/20/20 15:39 Body Mass Index 31.1 Const: General: cooperative HENMT: Head: Yes normal to inspection Mouth: Normal oral and palatal mucosa present Eyes: General: appearance normal, both eyes and all related structures Resp: Effort & Inspection: decreased respiratory effort Cardio: Rate: regular rate Rhythm: regular rhythm GI: Palpation (GI): Soft to palpation and nontender : General: Yes no CVA tenderness Back/Spine/Pelvis: Back: no CVA tenderness Skin: General skin exam: no rashes or lesions noted Assessment and Plan (1) Acute exacerbation of chronic obstructive airways disease: Problem details: CT shows no lobar pneumonia and no acute infiltrate Patient likely bronchiectasis,COPD Status: Acute Would give po Doxycycline 100 mg bid 10 days (2) Hypoxia: Status: Acute Results Labs CBC & Chem 7: 06/20/20 05:39 06/19/20 17:04 Labs: Short CBC 06/19/20 06/20/20 Range/Units 17:04 05:39 WBC 15.3 H 12.0 H (4.8-10.8) X10*3/uL Hgb 15.3 14.1 (14.0-18.0) g/dl Hct 48.2 44.3 (42-52) % Plt Count 217 195 (160-400) X10*3/uL BMP 06/19/20 17:04 Sodium 140 Potassium 4.7 Chloride 101 Carbon Dioxide 26 BUN 18 H Creatinine 1.13 Calcium 8.8 Liver Function 06/19/20 Range/Units 17:04 Total Bilirubin 0.6 (0.0-1.0) mg/dL AST 20 (5-37) U/L ALT 22 (0-40) U/L Alkaline Phosphatase 76 (39-117) U/L Albumin 4.0 (3.5-5.0) g/dL Urine 06/19/20 Range/Units 17:58 Urine Color YELLOW Urine Appearance CLEAR Urine pH 6.0 (5.0-8.0) Ur Specific [place] 1.020 (1.005-1.025) Urine Protein NEG (NEG-TRACE) MG/DL Urine Glucose (UA) NEG (NEG) MG/DL Microbiology Microbiology Results: Microbiology 06/19/20 17:18 Blood - Venous Blood Culture - Final
[2020-06-20] MEDS: oxyCODONE HCl Immed Release 5 MG TABLET PO (19:38)
[2020-06-20] MEDS: Tamsulosin HCL 0.4 MG CAPSULE PO (21:28)
[2020-06-21] VITALS (11 sets, daily range): BP systolic 131–159; BP diastolic 62–97; PULSE 70–88; RESP 18–20; TEMP 36.3–36.9; O2SAT 93–98
[2020-06-21 04:40] LABS: SARS COV2 IgG Negative (Negative)
[2020-06-21 07:31] LABS: Anion Gap 17 (12-20); Blood Urea Nitrogen 24 mg/dL (9-16); Calcium 8.6 mg/dL (8.4-10.2); Carbon Dioxide 28 mmol/L (22-29); Chloride 101 mmol/L (96-108); Estimated Glomerular Filt Rate > 60; Glucose Random 143 mg/dL (60-115); Potassium 4.8 mmol/l (3.3-5.1); Sodium 141 mmol/L (135-145)
[2020-06-21 07:36] LABS: B Type Natriuretic Peptide 100 pg/mL (<100)
[2020-06-21] MEDS: atenoloL 25 MG TABLET PO (09:00)
[2020-06-21] MEDS: dexAMETHasone 6 MG TABLET PO (09:00)
[2020-06-21] MEDS: Losartan Potassium 50 MG TABLET 100 MG PO (09:01)
[2020-06-21] MEDS: 0.9 % Sodium Chloride Flush 3 ML SYRINGE IVFLUSH ×3 (09:01→22:34)
[2020-06-21] MEDS: Heparin Sodium,Porcine 5,000 UNIT/ML VIAL 5000 UNIT SUBCUT ×2 (09:02→21:28)
[2020-06-21] MEDS: oxyCODONE HCl Immed Release 5 MG TABLET PO (09:06)
[2020-06-21] MEDS: Fluticasone Propionate Nasal 16 GM SPRAY 1 SPRAY NOSTRIL-B (10:19)
[2020-06-21] MEDS: Albuterol/Iprat 2.5/0.5MG 3 ML AMPUL.NEB INHALE ×3 (11:37→23:04)
--- NOTE | 2020-06-21 16:49 | P.PNIM_ITS ---
Subjective Subjective Date of Service: 06/21/20 Interval History: seen and examined still sob ROS General - no fevers or chills Cardiovascular - no chest pain Respiratory - ++SOB/Cough Abdominal- no abdominal pain, nausea, vomiting, diarrhea Physical Exam Vital Signs: Vital Signs: Last Vital Signs Temp 97.3 F 06/21/20 15:26 Pulse 70 06/21/20 15:26 Resp 18 06/21/20 15:26 BP 138/77 06/21/20 15:26 Pulse Ox 93 06/21/20 15:26 Body Mass Index 31.1 Const: Other: General - no acute distress, appears comfortable Cardiovascular - regular rate and rhythm, S1-S2 Lungs - mild exp. wheezing Abdomen - soft, nontender, no rebound or guarding Extremities - no edema bilaterally Neuro - awake and alert, no focal deficits Objective Data Current Medications Generic Name Dose Route Start Last Admin Trade Name Freq PRN Reason Stop Dose Admin Acetaminophen 650 mg 06/19/20 21:27 Acetaminophen Supp 650 Mg Supp.Rect NE Q6H PRN Pain, Mild (Pain Scale 1-3) Albuterol/Ipratropium 3 ml 06/20/20 12:00 06/21/20 11:37 Albuterol/Iprat 2.5/0.5mg 3 Ml Ampul.Neb INHALE 3 ml RQ6H KRISTIN Administration Atenolol 25 mg 06/20/20 09:00 06/21/20 09:00 Atenolol 25 Mg Tablet PO 25 mg DAILY KRISTIN Administration Protocol Dexamethasone 6 mg 06/20/20 09:00 06/21/20 09:00 Dexamethasone 6 Mg Tablet PO 6 mg DAILY KRISTIN Administration Doxycycline Hyclate 100 mg 06/20/20 22:00 06/21/20 09:10 Doxycycline Hyclate 100 Mg Tablet PO 100 mg Q12H KRISTIN Administration Fluticasone Propionate 1 spray 06/20/20 09:00 06/21/20 10:19 Fluticasone Propionate Nasal 16 Gm [place] NOSTRIL-B 1 spray DAILY KRISTIN Administration Guaifenesin 5 ml 06/20/20 15:34 Guaifenesin 100 Mg/5 Ml Liquid PO Q6H PRN Cough Heparin Sodium (Porcine) 5,000 unit 06/19/20 21:30 06/21/20 09:02 Heparin Sodium,Porcine 5,000 Unit/Ml Vial SUBCUT 5,000 unit Q12H KRISTIN Administration Losartan Potassium 100 mg 06/20/20 09:00 06/21/20 09:01 Losartan Potassium 50 Mg Tablet PO 100 mg DAILY KRISTIN Administration Protocol Magnesium Hydroxide 30 ml 06/19/20 21:27 Milk Of Magnesia 30 Ml Oral.Susp PO DAILY PRN Constipation Non-Formulary Medication 1 inhalation 06/20/20 21:00 Inspzzsffgc-Wzbhllksk-Ykhkvajf [Trelegy Ellipta] INHALE BEDTIME KRISTIN Ondansetron HCl 4 mg 06/19/20 21:27 Ondansetron Hcl 4 Mg/2 Ml Vial IVPUSH Q8H PRN Nausea and Vomiting Oxycodone HCl 5 mg 06/19/20 21:26 06/21/20 09:06 Oxycodone Hcl Immed Release 5 Mg Tablet PO 5 mg QID PRN Administration Pain (Scale Score 4-6) Pharmacy Consult 1 each 06/19/20 20:11 Consult Rx Perform Med Rec MISCELLANE ONCE PRN Consult order Sodium Chloride 3 ml 06/20/20 00:00 06/21/20 16:05 0.9 % Sodium Chloride Flush 3 Ml Syringe IVFLUSH 3 ml QSHIFT KRISTIN Administration Tamsulosin HCl 0.4 mg 06/20/20 21:00 06/20/20 21:28 Tamsulosin Hcl 0.4 Mg Capsule PO 0.4 mg BEDTIME KRISTIN Administration Labs CBC & Chem 7: 06/20/20 05:39 06/21/20 05:53 Microbiology Microbiology Results: Microbiology 06/19/20 20:15 Blood - Venous Blood Culture - Preliminary No growth after 24 hours. 06/19/20 17:09 Blood - Venous Blood Culture - Preliminary No growth after 24 hours. 06/19/20 17:06 Blood - Venous Blood Culture - Preliminary No growth after 24 hours. 06/19/20 17:18 Blood - Venous Blood Culture - Final Assessment and Plan (1) COPD (chronic obstructive pulmonary disease): Status: Acute Assessment and Plan: This is a 80 yo M admitted for acute resp failure with hypoxia secondary to codp exacerbation, which is suspected due to atypical pneumonia vs viral. 1. Acute resp failure with hypoxia due to copd, possible atypical / viral pneumonia continue o2, wean as tolerated increase steroids to bid, continue updrafts will check echo to ensure no cardiac component to his symptoms 2. BPH finesteride 3. HTN stable, continue home meds Full code Dvt pptx, heparin d/w the
[2020-06-21] MEDS: Tamsulosin HCL 0.4 MG CAPSULE PO (21:28)
[2020-06-22 03:50] VITALS: BP 171/99; PULSE 93; RESP 18; TEMP 36.4; O2SAT 98
[2020-06-22 05:16] VITALS: BP 135/65
[2020-06-22] MEDS: Albuterol/Iprat 2.5/0.5MG 3 ML AMPUL.NEB INHALE (05:24)
[2020-06-22 05:26] VITALS: PULSE 78; O2SAT 97
[2020-06-22 07:58] VITALS: BP 167/82; PULSE 96; RESP 22; TEMP 36.6; O2SAT 95
[2020-06-22] MEDS: dexAMETHasone 6 MG TABLET PO (09:40)
[2020-06-22] MEDS: atenoloL 25 MG TABLET PO (09:42)
[2020-06-22] MEDS: Losartan Potassium 50 MG TABLET 100 MG PO (09:42)
[2020-06-22] MEDS: Heparin Sodium,Porcine 5,000 UNIT/ML VIAL 5000 UNIT SUBCUT (09:48)
[2020-06-22] MEDS: 0.9 % Sodium Chloride Flush 3 ML SYRINGE IVFLUSH (09:50)
[2020-06-22] MEDS: Fluticasone Propionate Nasal 16 GM SPRAY 1 SPRAY NOSTRIL-B (09:56)
--- NOTE | 2020-06-22 10:00 | CA_ITS ---
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 - Elevated filling pressures. - The basal inferior segment is akinetic. - Normal right ventricular cavity size and systolic function. - There is mild to moderate aortic valve stenosis. Findings Left Ventricle Normal left ventricular size and systolic function. There is mildly increased left ventricular wall thickness. The visually estimated ejection fraction is between 60-65%. There is evidence of regional wall motion abnormalities. Abnormal diastolic function is noted. Spectral Doppler is indicative of an impaired relaxation filling pattern. Elevated filling pressures. Wall Motion Rest Echo Findings The basal inferior segment is akinetic. Right Ventricle Normal right ventricular cavity size and systolic function. Atria Both atria are normal in size. Aortic Valve There is moderate calcification of the aortic valve. There is moderate thickening of the aortic valve. There is mild to moderate aortic valve stenosis. The mean gradient is 15 mmHg. The aortic valve area is 1.86 cm2. There is no aortic valve regurgitation. Mitral Valve The mitral valve appears normal. There is no mitral valve regurgitation. There is no mitral valve stenosis. Pulmonic Valve The pulmonic valve is likely normal. Tricuspid Valve Normal tricuspid valve structure and function. There is trace tricuspid valve regurgitation. Normal right atrial pressure. There is no evidence of pulmonary hypertension. Great Vessels All visible segments of the aorta are normal in size. The visualized portions of the pulmonary artery and branches are normal. Venous The inferior vena cava is normal in size and collapses greater than 50% with inspiration. Pericardium/Pleural Prominent epicardial adipose tissue noted. There is no evidence of pericardial effusion. Prior Study Comparison No prior study available for comparison. Measurements 2D Linear Measurements IVSd: 1.10 0.6-0.9/0.6-1.0 cm LVIDd: 4.02 3.9-5.3/4.2-5.9 cm LVIDd Index: 2.09 2.4-3.2/2.2-3.1 cm/m2 LVIDs: 2.97 2.0-3.6 cm LVPWd: 1.11 0.7-1.1 cm Ao Root: 3.50 2.1-3.5 cm LA Diam: 3.10 2.7-3.8/3.0-4.0 cm LAIDs Index: 1.61 1.5-2.3 cm/m2 LV Mass: 183.91 67-162/88-224 g LV Mass Index: 95.79 43-95/49-115 g/m2 LVOT Diam: 2.20 3.0+(-)1.3 cm Mitral Valve MV Pk E: 0.77 MV PK A: 1.19 MV Decel Time: 203.00 E/A: 0.60 E'Lateral: 6.74 E'Medial: 4.79 E/E' Med: 16.10 E/E' Lat: 11.40 PHT: 59.00 MVA PHT: 3.73 Decel Hardy: 3.81 Aortic Valve AoV Pk Conner: 2.66 AoV Mn Conner: 1.85 AoV VTI: 0.47 AoV Pk Grad: 28.00 Aov Mn Grad: 15.00 GISELLA Cont.VTI: 1.86 LVOT LVOT Pk Conner: 1.14 LVOT Mn Conner: 0.64 LVOT VTI: 0.23 LVOT Pk Grad: 5.00 LVOT Mn Grad: 2.00 LVOT Diam: 2.20 LVOT Area: 3.80 Diastolic Function MV Pk E: 0.77 MV Pk A: 1.19 E/A: 0.60 E'Medial: 4.79 E/E' Med: 16.10 E' Laterial: 6.74 E/E' Lat: 11.40 Tricuspid Valve TR Pk Conner: 1.78 TR Pk Grad: 13.00 RA Press: 3.00 RVSP: 16.00 Great Vessels Aorta Ao Root-2D: 3.50 2.0-3.7 cm Ao Asc: 3.40 2.1-3.4 cm Updated in Other Vendor System with Status of Final Jamie Wilson MD electronically signed on 06/22/2020 12:39:03 PM with status of Final
--- NOTE | 2020-06-22 11:36 | MHC.CM.PN ---
DP A home O2 eval is pending. Pt will DC home today, with Oxygen If needed. CM will follow
[2020-06-22 12:00] VITALS: BP 170/81; PULSE 91; RESP 18; TEMP 37.1; O2SAT 94
[2020-06-22 13:27] VITALS: PULSE 102; PULSE 89; O2SAT 90; O2SAT 93
--- NOTE | 2020-06-22 14:36 | MHC.CM.PN ---
IMM 06/22/20 Male 80 dx PNA COPD exacerbation. A Home O2 eval was performed with RT. The patient does not qualify for Home O2. VNA has been ordered by MD. Referrals have been sent. The Patients preference is [facility]. DC today to home with [facility]. Family is providing transportation.
--- NOTE | 2020-06-22 14:39 | W.MHC.F2F ---
Service Date Service Date: 06/22/20 Encounter Date of encounter: 06/22/20 Reasons for Services Reason for nursing home: teach disease management Reason for occupational therapy: energy conservation Overseeing Care: Marvin Carey Homebound: Leaving the home is medically contraindicated at this time without the asist of a device and/or another person due th the listed conditions above and below. Reason homebound: shortness of breath with minimal effort Certification: Based on the above findings, I certify that this patient is confined to the home and needs intermittent nursing home care, physical therapy and/or speech therapy, or continues to need occupational therapy. The patient is under my care, and I have initiated the establishment of the plan of care. The patient will be followed by a physician who will periodically review the plan of care.
--- NOTE | 2020-06-22 14:43 | P.DS_ITS ---
DS: Providers Provider Date of Service: 06/22/20 Date of admission: 06/19/20 21:27 Primary care physician: Unknown Physician Consults: 06/19/20 22:07 Consult to Infectious Diseases Routine Consulting Provider: Dinora Ayala Reason for consultation: pneumonia ? covid DS: Diagnosis Discharge Diagnosis (1) Acute respiratory failure with hypoxia: Status: Acute (2) COPD exacerbation: Status: Acute DS: Medications Discharge Medications Home Medications: Home Medications Medication Instructions Recorded Confirmed Trelegy Ellipta 1 inh INHALATION BEDTIME 06/19/20 06/19/20 albuterol sulfate [ProAir HFA] 2 puff INHALATION QID PRN 06/19/20 06/19/20 atenolol 25 mg PO DAILY 06/19/20 06/19/20 fluticasone propionate 1 spray INTRANASAL DAILY 06/19/20 06/19/20 losartan 100 mg PO DAILY 06/19/20 06/19/20 oxycodone-acetaminophen 1 tab PO QID PRN 06/19/20 06/19/20 tamsulosin 0.4 mg PO BEDTIME 06/19/20 06/19/20 Previous Rx's Medication Instructions Recorded doxycycline hyclate 100 mg PO Q12H #14 tab 06/22/20 guaifenesin [Mucinex] 600 mg PO BID PRN 15 Days #30 tab 06/22/20 prednisone 40 mg PO DAILY #10 tab 06/22/20 DS: Summary Hospital Course Hospital Course: Patient was started on supplemental oxygen, IV steroids and IV doxycycline. Due to abnormal CT scan, there was some suspicion of atypical versus viral pneumonia. His COVID-19 swab was negative on admission and the day after admission, a respiratory pathogen panel was tested and was again negative including COVID-19. Infectious Disease consultation was sought and recommended doxycycline for 10 days which he will be discharged on. He will also be discharged on a short course of prednisone for COPD exacerbation. Prior to discharge, he was evaluated for home oxygen and did not qualify. Patient also underwent 2D echo to evaluate LV function given his history of CAD. LVEF was normal but he did have diastolic dysfunction. At this time, patient is euvolemic but in the future may need diuretics and this can be further assessed as an outpatient as needed. The above information was relayed to the patient as well as the patient's . Time Spent with Patient Time attestation: Total time spent providing and/or coordinating discharge services: Discharge coordination time: Greater than 30 minutes Physical Exam Vital Signs: Vital Signs: Last Vital Signs Temp 98.8 F 06/22/20 12:00 Pulse 91 06/22/20 12:00 Resp 18 06/22/20 12:00 BP 170/81 H 06/22/20 12:00 Pulse Ox 94 06/22/20 12:00 Body Mass Index 31.1 DS: Data Data Completed and Pending Labs on day of discharge: Laboratory Tests 06/19/20 06/19/20 06/19/20 17:04 17:04 17:04 WBC 15.3 H RBC 5.10 Hgb 15.3 Hct 48.2 MCV 94.5 MCH 30.0 MCHC 31.7 RDW 12.2 Plt Count 217 MPV 9.8 Immature Gran % (Auto) 0.5 H Neut % (Auto) 72.0 Lymph % (Auto) 13.5 L [place] % (Auto) 12.6 H Eos % (Auto) 1.1 Baso % (Auto) 0.3 Lymph # (Auto) 2.1 [place] # (Auto) 1.9 H Eos # (Auto) 0.2 Baso # (Auto) 0.1 Abs Immat Gran (auto) 0.07 H Absolute Neuts (auto) 11.0 H Absolute Nucleated RBC 0.000 Nucleated RBC % (auto) 0.0 Smear Tech's Comments VERIFIED APTT 28.9 D-Dimer 558 Sodium 140 Potassium 4.7 Chloride 101 Carbon Dioxide 26 Anion Gap 18 BUN 18 H Creatinine 1.13 Estim Creat Clear Calc 52.2 Estimated GFR > 60 Random Glucose 92 Lactic Acid Calcium 8.8 Total Bilirubin 0.6 AST 20 ALT 22 Alkaline Phosphatase 76 Troponin I High Sens B-Natriuretic Peptide Total Protein 7.4 Albumin 4.0 Urine Color Urine Appearance Urine pH Ur Specific [place] Urine Protein Urine Glucose (UA) Urine Ketones Urine Blood Urine Nitrite Ur Leukocyte Esterase Respiratory Panel Faria Adenovirus (Rapid PCR) B.pert (TEM-PCR) B.parapertussis DNA PCR C. pneumoniae DNA (PCR) Coronavirus OC43 (PCR) Coronavirus HKU1 (PCR) Coronavirus 229E (PCR) COVID-19 (HECTOR) COVID-19 Clin Com Coronavirus NL63 (PCR) Human Metapneumovir PCR Influenza A (RT-PCR) Influenza B (RT-PCR) M. pneumoniae (PCR) Parainfluenza 1 (PCR) Parainfluenza 2 (PCR) Parainfluenza 3 (PCR) Parainfluenza 4 (PCR) RSV (PCR) Entero/Rhino (PCR) SARS-CoV-2 RNA (RT-PCR) SARS-CoV-2 IgG Ab 06/19/20 06/19/20 06/19/20 17:04 17:04 17:18 WBC RBC Hgb Hct MCV MCH MCHC RDW Plt Count MPV Immature Gran % (Auto) Neut % (Auto) Lymph % (Auto) [place] % (Auto) Eos % (Auto) Baso % (Auto) Lymph # (Auto) [place] # (Auto) Eos # (Auto) Baso # (Auto) Abs Immat Gran (auto) Absolute Neuts (auto) Absolute Nucleated RBC Nucleated RBC % (auto) Smear Tech's Comments APTT D-Dimer Sodium Potassium Chloride Carbon Dioxide Anion Gap BUN Creatinine Estim Creat Clear Calc Estimated GFR Random Glucose Lactic Acid 0.9 Calcium Total Bilirubin AST ALT Alkaline Phosphatase Troponin I High Sens 14.9 B-Natriuretic Peptide 54 Total Protein Albumin Urine Color Urine Appearance Urine pH Ur Specific [place] Urine Protein Urine Glucose (UA) Urine Ketones Urine Blood Urine Nitrite Ur Leukocyte Esterase Respiratory Panel Faria Adenovirus (Rapid PCR) B.pert (TEM-PCR) B.parapertussis DNA PCR C. pneumoniae DNA (PCR) Coronavirus OC43 (PCR) Coronavirus HKU1 (PCR) Coronavirus 229E (PCR) COVID-19 (HECTOR) Negative COVID-19 Clin Com See Note Coronavirus NL63 (PCR) Human Metapneumovir PCR Influenza A (RT-PCR) Influenza B (RT-PCR) M. pneumoniae (PCR) Parainfluenza 1 (PCR) Parainfluenza 2 (PCR) Parainfluenza 3 (PCR) Parainfluenza 4 (PCR) RSV (PCR) Entero/Rhino (PCR) SARS-CoV-2 RNA (RT-PCR) SARS-CoV-2 IgG Ab 06/19/20 06/19/20 06/19/20 17:58 20:15 23:16 WBC RBC Hgb Hct MCV MCH MCHC RDW Plt Count MPV Immature Gran % (Auto) Neut % (Auto) Lymph % (Auto) [place] % (Auto) Eos % (Auto) Baso % (Auto) Lymph # (Auto) [place] # (Auto) Eos # (Auto) Baso # (Auto) Abs Immat Gran (auto) Absolute Neuts (auto) Absolute Nucleated RBC Nucleated RBC % (auto) Smear Tech's Comments APTT D-Dimer Sodium Potassium Chloride Carbon Dioxide Anion Gap BUN Creatinine Estim Creat Clear Calc Estimated GFR Random Glucose Lactic Acid Calcium Total Bilirubin AST ALT Alkaline Phosphatase Troponin I High Sens 12.3 B-Natriuretic Peptide Total Protein Albumin Urine Color YELLOW Urine Appearance CLEAR Urine pH 6.0 Ur Specific [place] 1.020 Urine Protein NEG Urine Glucose (UA) NEG Urine Ketones NEG Urine Blood NEG Urine Nitrite NEG Ur Leukocyte Esterase NEG Respiratory Panel Faria Adenovirus (Rapid PCR) B.pert (TEM-PCR) B.parapertussis DNA PCR C. pneumoniae DNA (PCR) Coronavirus OC43 (PCR) Coronavirus HKU1 (PCR) Coronavirus 229E (PCR) COVID-19 (HECTOR) COVID-19 Clin Com Coronavirus NL63 (PCR) Human Metapneumovir PCR Influenza A (RT-PCR) Influenza B (RT-PCR) M. pneumoniae (PCR) Parainfluenza 1 (PCR) Parainfluenza 2 (PCR) Parainfluenza 3 (PCR) Parainfluenza 4 (PCR) RSV (PCR) Entero/Rhino (PCR) SARS-CoV-2 RNA (RT-PCR) SARS-CoV-2 IgG Ab Negative 06/20/20 06/20/20 06/21/20 05:39 09:39 05:53 WBC 12.0 H RBC 4.68 Hgb 14.1 Hct 44.3 MCV 94.7 MCH 30.1 MCHC 31.8 RDW 12.1 Plt Count 195 MPV 10.1 Immature Gran % (Auto) 0.5 H Neut % (Auto) 88.4 H Lymph % (Auto) 7.8 L [place] % (Auto) 3.2 Eos % (Auto) 0.0 Baso % (Auto) 0.1 Lymph # (Auto) 0.9 L [place] # (Auto) 0.4 Eos # (Auto) 0.0 Baso # (Auto) 0.0 Abs Immat Gran (auto) 0.06 H Absolute Neuts (auto) 10.6 H Absolute Nucleated RBC 0.000 Nucleated RBC % (auto) 0.0 Smear Tech's Comments APTT D-Dimer Sodium 141 Potassium 4.8 Chloride 101 Carbon Dioxide 28 Anion Gap 17 BUN 24 H Creatinine 1.00 Estim Creat Clear Calc 59.0 Estimated GFR > 60 Random Glucose 143 H D Lactic Acid Calcium 8.6 Total Bilirubin AST ALT Alkaline Phosphatase Troponin I High Sens B-Natriuretic Peptide Total Protein Albumin Urine Color Urine Appearance Urine pH Ur Specific [place] Urine Protein Urine Glucose (UA) Urine Ketones Urine Blood Urine Nitrite Ur Leukocyte Esterase Respiratory Panel Faria See Note Adenovirus (Rapid PCR) Not Detected B.pert (TEM-PCR) Not Detected B.parapertussis DNA PCR Not Detected C. pneumoniae DNA (PCR) Not Detected Coronavirus OC43 (PCR) Not Detected Coronavirus HKU1 (PCR) Not Detected Coronavirus 229E (PCR) Not Detected COVID-19 (HECTOR) COVID-19 Clin Com Coronavirus NL63 (PCR) Not Detected Human Metapneumovir PCR Not Detected Influenza A (RT-PCR) Not Detected Influenza B (RT-PCR) Not Detected M. pneumoniae (PCR) Not Detected Parainfluenza 1 (PCR) Not Detected Parainfluenza 2 (PCR) Not Detected Parainfluenza 3 (PCR) Not Detected Parainfluenza 4 (PCR) Not Detected RSV (PCR) Not Detected Entero/Rhino (PCR) Not Detected SARS-CoV-2 RNA (RT-PCR) Not Detected SARS-CoV-2 IgG Ab 06/21/20 05:53 WBC RBC Hgb Hct MCV MCH MCHC RDW Plt Count MPV Immature Gran % (Auto) Neut % (Auto) Lymph % (Auto) [place] % (Auto) Eos % (Auto) Baso % (Auto) Lymph # (Auto) [place] # (Auto) Eos # (Auto) Baso # (Auto) Abs Immat Gran (auto) Absolute Neuts (auto) Absolute Nucleated RBC Nucleated RBC % (auto) Smear Tech's Comments APTT D-Dimer Sodium Potassium Chloride Carbon Dioxide Anion Gap BUN Creatinine Estim Creat Clear Calc Estimated GFR Random Glucose Lactic Acid Calcium Total Bilirubin AST ALT Alkaline Phosphatase Troponin I High Sens B-Natriuretic Peptide 100 Total Protein Albumin Urine Color Urine Appearance Urine pH Ur Specific [place] Urine Protein Urine Glucose (UA) Urine Ketones Urine Blood Urine Nitrite Ur Leukocyte Esterase Respiratory Panel Faria Adenovirus (Rapid PCR) B.pert (TEM-PCR) B.parapertussis DNA PCR C. pneumoniae DNA (PCR) Coronavirus OC43 (PCR) Coronavirus HKU1 (PCR) Coronavirus 229E (PCR) COVID-19 (HECTOR) COVID-19 Clin Com Coronavirus NL63 (PCR) Human Metapneumovir PCR Influenza A (RT-PCR) Influenza B (RT-PCR) M. pneumoniae (PCR) Parainfluenza 1 (PCR) Parainfluenza 2 (PCR) Parainfluenza 3 (PCR) Parainfluenza 4 (PCR) RSV (PCR) Entero/Rhino (PCR) SARS-CoV-2 RNA (RT-PCR) SARS-CoV-2 IgG Ab Preliminary micro results at discharge 06/19/20 20:15 Blood Culture - Preliminary Blood - Venous No growth after 48 hours. 06/19/20 17:09 Blood Culture - Preliminary Blood - Venous No growth after 48 hours. 06/19/20 17:06 Blood Culture - Preliminary Blood - Venous No growth after 48 hours. Discharge Plan Discharge Patient Disposition: Home Health Service Referrals: Ac Hamilton MD [Physician] - (call office for appt) Physician,Unknown [Primary Care Provider] - Discharge Medications: New guaifenesin [Mucinex] 600 mg tablet extended release 12hr 600 mg PO BID PRN (Reason: congestion) 15 Days Qty: 30 RF: 0 doxycycline hyclate 100 mg Tablet 100 mg PO Q12H Qty: 14 RF: 0 prednisone 20 mg tablet 40 mg PO DAILY Qty: 10 RF: 0 Continued oxycodone-acetaminophen 5-325 mg tablet 1 tab PO QID PRN (Reason: Pain (Scale Score 4-6)) RF: 0 atenolol 25 mg Tablet 25 mg PO DAILY RF: 0 tamsulosin 0.4 mg Capsule 0.4 mg PO BEDTIME RF: 0 losartan 100 mg Tablet 100 mg PO DAILY RF: 0 fluticasone propionate 50 mcg/actuation [place],Suspension 1 spray INTRANASAL DAILY RF: 0 Trelegy Ellipta 100-62.5-25 mcg Blister With Device 1 inh INHALATION BEDTIME RF: 0 albuterol sulfate [ProAir HFA] 90 mcg/actuation Hfa Aerosol Inhaler 2 puff INHALATION QID PRN (Reason: Shortness Of Breath) RF: 0 Discharge Orders: Discharge Order (Routine); Ordered 06/22/20 Ordered By: Marques Smith Diet: advance to usual diet Activity on Discharge: As tolerated Stand Alone Forms: Patient Portal Discharge page Care Plan Goals: To stay healthy and out of the hospital. Health Concerns: COPD CHF - you echocardiogram showed that you have diastolic heart failure. Plan of Treatment: Take Prednisone 40mg daily. Take doxycycline 100mg twice darily. Take your inhalers. Call the pulmonary clinic for follow up.
== END 2020-06-22 03:45 | disposition home health service (06) | DRG 190 ==
LOC: HO.ED 20:07 → HO.EDOVER 21:32 → HO.IMC 21:36
PROVIDERS: Admitting Provider Internal Medicine; Emergency Provider Emergency Medicine Emergency Medical Services; PCP Internal Medicine; Visit Provider Family Medicine
DX: J44.0 Chronic obstructive pulmonary disease with (acute) lower respiratory infection (principal); J12.9 Viral pneumonia, unspecified; J96.01 Acute respiratory failure with hypoxia; J44.1 Chronic obstructive pulmonary disease with (acute) exacerbation; I25.10 Atherosclerotic heart disease of native coronary artery without angina pectoris; M54.9 Dorsalgia, unspecified; N40.0 Benign prostatic hyperplasia without lower urinary tract symptoms; I10 Essential (primary) hypertension; Z20.822 Contact with and (suspected) exposure to COVID-19; Z88.6 Allergy status to analgesic agent; Z79.51 Long term (current) use of inhaled steroids; Z79.899 Other long term (current) drug therapy
CPT/HCPCS: 36415; 71045; 71275; 80048; 80053; 81003; 83605; 83880; 84484; 85025; 85379; 85730; 86769; 87040; 87633; 87635; 93005; 93306; 94640; 96365; 96375; 99285; 99291; J2543; J2920; J2930; J8540; Q9967

== ENCOUNTER 2020-06-26 13:56 | Outpatient (REF) | payer MEDICARE, OTHER, SELFPAY ==
[2020-06-26 15:58] LABS: Basophils Percent Auto 0.1 % (0-2); Eosinophils Percent Auto 0.1 % (0-4); Hemoglobin 15.2 g/dl (14.0-18.0); Imm Gran Abs Auto 0.15 X10*3/uL (0.00-0.03); Imm Gran Pct Auto 1.2 % (0.0-0.4); Lymphocytes Absolute Auto 0.6 X10*3/uL (1.2-4.9); Lymphocytes Percent Auto 5.1 % (20-40); MANUAL DIFF FLAG SCAN; Mean Corpuscular HGB Conc 32.3 g/dl (31.0-36.0); Mean Corpuscular Volume 92.7 fL (80-98); Mean Platelet Volume 9.6 fL (9.4-12.4); Monocytes Absolute Auto 0.4 X10*3/uL (0.1-1.2); Monocytes Percent Auto 3.4 % (2-11); Neutrophils Absolute Auto 11.3 X10*3/uL (2.0-8.3); Neutrophils Percent Auto 90.1 % (45-73); Platelet Count 226 X10*3/uL (160-400); Red Blood Count 5.07 X10*6/uL (4.60-5.80); Red Cell Distribution Width 12.3 % (11.0-16.0); SCAN SMEAR FLAG 1; White Blood Count 12.6 X10*3/uL (4.8-10.8)
[2020-06-26 16:18] LABS: SLIDE REVIEW VERIFIED
[2020-06-26 16:57] LABS: Erythrocyte Sedimentation Rate 6 MM/HR (0-15)
[2020-06-28 08:22] LABS: Anti Nuclear Antibody Screen NEGATIVE (NEGATIVE)
[2020-07-01 19:32] LABS: Asperg fumigatus Precip Abs NEGATIVE (NEGATIVE); Micropoly faeni Abs NEGATIVE (NEGATIVE); Pigeon serum Abs NEGATIVE (NEGATIVE); Saccharo pora viridis Abs NEGATIVE (NEGATIVE); Thermo candidus Abs NEGATIVE (NEGATIVE); Thermoa vulgaris #1 NEGATIVE (NEGATIVE)
== END 2020-06-26 13:57 | disposition home or self-care (01) ==
LOC: HO.LAB 13:56
PROVIDERS: PCP Internal Medicine; Visit Provider Hospitalist
DX: J44.9 Chronic obstructive pulmonary disease, unspecified (principal); J18.9 Pneumonia, unspecified organism; R91.8 Other nonspecific abnormal finding of lung field; R09.02 Hypoxemia; Z79.899 Other long term (current) drug therapy
CPT/HCPCS: 36415; 82785; 85025; 85652; 86003; 86038; 86039; 86331; 86606; 86609; 99202

== ENCOUNTER 2020-08-07 09:03 | Outpatient (REF) | payer MEDICARE, OTHER, SELFPAY ==
--- NOTE | 2020-08-07 17:21 | PFT_ITS ---
Forced vital capacity, FEV1, [id number], and MVV are all markedly reduced. Post bronchodilator therapy, there is small, but significant improvement in FEV1, [id number], and MVV. Total lung capacity normal. Residual volume markedly increased, suggesting air trapping. Diffusion capacity is moderately decreased. CONCLUSION: Severe obstructive airway disorder with evidence of air trapping. There is significant response to bronchodilator therapy consistent with asthma/COPD overlap syndrome. Clinical correlation is recommended. MD CATALINA Brown/MODL / [id number]
== END 2020-08-07 09:04 | disposition home or self-care (01) ==
LOC: HO.RESP 09:03
PROVIDERS: PCP Internal Medicine; Visit Provider Hospitalist
DX: J18.9 Pneumonia, unspecified organism (principal); R91.8 Other nonspecific abnormal finding of lung field; R06.02 Shortness of breath
CPT/HCPCS: 87070; 87205; 94060; 94727; 94729; 99212

== ENCOUNTER → 2020-10-12 10:26 | Outpatient (BNVA) | payer MEDICARE, OTHER, SELFPAY | PROVIDERS: PCP Internal Medicine; Visit Provider Hospitalist | DX: J41.1 Mucopurulent chronic bronchitis (principal); J18.9 Pneumonia, unspecified organism; R91.8 Other nonspecific abnormal finding of lung field | CPT/HCPCS: 99212 ==

== ENCOUNTER 2020-10-24 10:07 | Outpatient (REF) | payer MEDICARE, OTHER, SELFPAY ==
--- NOTE | ~2020-10-24 | CT_ITS ---
EXAMINATION: CT CHEST WITHOUT CONTRAST CLINICAL INFORMATION: Pneumonia. COMPARISON: CT chest 06/19/2020 TECHNIQUE: Multidetector volumetric CT imaging of the chest was done. Axial MIP volume rendering provided. Sagittal and coronal reformatted images were obtained. This CT examination was performed using dose optimization techniques as appropriate, variously including the following: *Automated exposure control *Adjustment of mA and/or kV according to patient size (this includes techniques or standardized protocols for targeted exams where dose is matched to indication/reason for exam; i.e. extremities or head) *Use of iterative reconstruction technique DLP: 183 mGy-cm FINDINGS: RIPRAP MAN: Unremarkable LUNGS: The lungs are well expanded and clear of acute pneumonic consolidation. There is a 1 mm calcification subpleural base right lower lobe, axial image 53/8, 2 mm nodule right middle lobe, axial image 305/5, and several punctate 1 mm calcification both lower lobes, lingula and right middle lobe better seen on thick slab images. Mild atelectatic changes are seen in bilateral lower lobes. MEDIASTINUM: Thyroid lobes are symmetric and normal. The central trachea and the bronchi are widely patent. Heart size and the great vessels are normal caliber. There are coronary artery aortic arch calcifications. No abnormal size mediastinal lymph nodes seen. No pericardial effusion. PLEURA: There is no pleural effusion. No pleural mass or thickening. AXILLA: No lymphadenopathy. UPPER ABDOMEN: Visualized liver, spleen, pancreas and bilateral adrenal glands are unremarkable. There are no radiopaque gallstones present. OSSEOUS STRUCTURES: There is mild degenerative spondylosis throughout dorsal spine. No lytic process. There is posterior cervical fusion with the upper end of the fusion not in the [id number]. CT/CT chest wo con IMPRESSION: Interval resolution of bilateral infiltrates. There are 1 mm scattered calcifications likely granulomas. The largest granuloma right middle lobe is 2 mm. Noncalcified pulmonary nodules. Coronary artery calcifications present.
== END 2020-10-24 10:08 | disposition home or self-care (01) ==
LOC: HO.CT 10:07
PROVIDERS: Visit Provider Hospitalist
DX: J18.9 Pneumonia, unspecified organism (principal); R91.8 Other nonspecific abnormal finding of lung field
CPT/HCPCS: 71250

== ENCOUNTER 2020-10-26 17:01 | Inpatient (IN) | payer MEDICARE, OTHER, SELFPAY ==
--- NOTE | ~2020-10-26 | XR_ITS ---
EXAMINATION: XR CHEST CLINICAL INFORMATION: Shortness of breath COMPARISON: 06/19/2020 TECHNIQUE: Frontal view of the chest was obtained. FINDINGS: Lungs are well expanded. The bronchial bethea are diffusely thickened, as may be seen in the setting of asthma or bronchitis. No focal pulmonary opacity. No consolidation, pleural effusion or pneumothorax. Cardiomediastinal silhouette is normal size and contour. 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 Posterior cervical spine fusion hardware is seen to level of T1. XR/XR chest 1V IMPRESSION: * The bronchial bethea are diffusely thickened. Correlate for history of asthma or bronchitis. * No evidence of consolidation/pneumonia.
[2020-10-26 17:04] VITALS: BP 165/72; PULSE 104; O2SAT 95
[2020-10-26 17:05] VITALS: BP 129/93; PULSE 102; RESP 22; TEMP 36.6; O2SAT 91; BMI 36.3
[2020-10-26] MEDS: Albuterol Sulfate (0.083%) 2.5 MG/3 ML VIAL.NEB 10 MG INHALE (17:40)
[2020-10-26 17:41] VITALS: PULSE 94; O2SAT 95
[2020-10-26] MEDS: Famotidine/PF 20 MG/2 ML VIAL IVPUSH (17:49)
[2020-10-26] MEDS: methylPREDNISolone Sod Succ 125 MG/2 ML VIAL IVPUSH (17:49)
[2020-10-26] MEDS: diphenhydrAMINE HCL 50 MG/ML VIAL IVPUSH (17:49)
[2020-10-26] MEDS: Magnesium Sulfate/H2O 2 GM/50 ML PIGGYBACK IV (17:49)
[2020-10-26 17:51] VITALS: BP 156/66; PULSE 98; RESP 20; O2SAT 98
--- NOTE | 2020-10-26 17:56 | ECG_ITS ---
Test Reason : SHORTNESS OF BREATH Blood Pressure : / mmHG Vent. Rate : 117 BPM Atrial Rate : 117 BPM P-R Int : 150 ms QRS Dur : 090 ms QT Int : 368 ms P-R-T Axes : 079 065 -08 degrees QTc Int : 513 ms Sinus tachycardia Left ventricular hypertrophy with repolarization abnormality Possible Inferior infarct (cited on or before 15-AUG-2015) Abnormal ECG When compared with ECG of 19-JUN-2020 16:53, Premature ventricular complexes are no longer Present Premature atrial complexes are no longer Present ST now depressed in Anterior leads Referred By: Lisa Castelan Electronically Signed By:Jamie Wilson
--- NOTE | 2020-10-26 18:19 | ED_ITS ---
HPI - SOB/Dyspnea General Chief Complaint: Dyspnea Stated Complaint: diff breathing Time Seen by Provider: 10/26/20 17:20 Source: patient Mode of arrival: ambulatory Limitations: no limitations History of Present Illness HPI Narrative: Patient comes emergency room complaining of shortness of breath. Patient states that he has been using his inhalers with no relief. Started this morning, cough with phlegm, no fever or chills. Patient received 1 nebulization treatment in the ambulance, breathing improved. On room air patient was found to be 88%, patient does not use oxygen at home. Patient known to be a COPD patient, seen by Dr. Hamilton from pulmonology. At this time, besides the shortness of breath, patient complaining of itchiness in his palms, soles and abdomen. Patient denies chest pain MD elicited complaint: shortness of breath and cough Related Data Home Medications Medication Instructions Recorded Confirmed Trelegy Ellipta 1 inh INHALATION BEDTIME 06/19/20 10/27/20 albuterol sulfate [ProAir HFA] 2 puff INHALATION QID PRN 06/19/20 10/27/20 atenolol 25 mg PO DAILY 06/19/20 10/27/20 fluticasone propionate 1 spray INTRANASAL DAILY 06/19/20 10/27/20 losartan 100 mg PO DAILY 06/19/20 10/27/20 oxycodone-acetaminophen 1 tab PO QID PRN 06/19/20 10/27/20 tamsulosin 0.4 mg PO BEDTIME 06/19/20 10/27/20 Previous Rx's Medication Instructions Recorded montelukast 10 mg tablet 10 mg PO DAILY 30 Days #30 tab 06/26/20 Allergies Allergy/AdvReac Type Severity Reaction Status Date / Time ibuprofen Allergy Mild Gastrointestinal Verified 08/07/20 22:20 Upset Review of Systems Review of Systems: Constitutional : No Weight loss, No Fever, No Chills, No Night Sweats, No Fatigue, No Malaise ENT/Mouth : No Hearing loss, No Ear Pain, No Nasal Congestion, No Sinus Pain, No Hoarseness, No sore throat, No Rhinorrhea, No Swallowing Difficulty Eyes: No Eye Pain, No Swelling, No Redness, No Foreign Body, No Discharge, No Vision Changes Cardiovascular : No Chest Pain, No SOB, No Dyspnea on Exertion, No Orthopnea, No Edema, No Palpitations Respiratory : No Cough, No Sputum, No Wheezing, No Smoke Exposure, No Dyspnea Gastrointestinal : No Nausea, No Vomiting, No Diarrhea, No Constipation, No abdominal Pain, No Hematochezia, No Melena Genitourinary : no irregular bleeding, No Dysuria, No Urinary Frequency, No Hematuria, No Urinary Incontinence, No Urgency, No Flank Pain, No Urinary Flow Changes, No Hesitancy Musculoskeletal : No joint pain, No Myalgias, No Joint Swelling Skin : No Skin Lesions, No rash Neuro : No Weakness, No Numbness, No Paresthesias, No Loss of Consciousness, No Dizziness, No Headache Psych : No Anxiety/Panic, No Depression, No SI/HI/AH/VH, No Social Issues, Heme/Lymph: No Bruising, No Bleeding,No Lymphadenopathy Endocrine : No Polyuria, No Polydipsia, No Temperature Intolerance [facility] Past Medical History Medical History (Updated 10/27/20 @ 00:13 by Lisa Castelan MD) BPH (benign prostatic hyperplasia) COPD (chronic obstructive pulmonary disease) HTN (hypertension) Pneumonia Pneumonitis Pulmonary nodules Social History Social History Alcohol intake: never Patient Tobacco Use Status: Former Tobacco user Smoked in Last 30 Days: No Use of substances other than those prescribed or required for medical reasons: No Advance Directives: No Advance Directives Information Provided: No service: No Current occupational status: retired Physical Exam 2 Vital Signs: Vital Signs: Last Vital Signs Temp 98.7 F 10/26/20 20:59 Pulse 105 H 10/27/20 01:26 Resp 17 10/27/20 01:26 BP 121/75 10/27/20 01:26 Pulse Ox 93 10/27/20 01:26 Body Mass Index 36.3 Course Course Course Narrative: Patient came in complaining of wheezing, shortness of breath, and allergic reaction. At this time, it is more likely that the patient was short of breath and wheezing due to an allergic reaction rather than a COPD exacerbation. White blood cell count is 13.6 which is chronic, patient does use daily inhaled steroids. Lactic acid pending (19:34) any evidence of consolidation/pneumonia Patient's lactic acid is 2.1. Likely secondary to low O2 saturation since this morning and albuterol inhalers. White blood cell count is stable, patient does not have any fever. Sepsis is not suspected. Hives and itchiness resolved. Patient states that he feels much better and is breathing comfortable, no chest tightness or chest pain.. Patient was initially doing well, had no shortness of breath, no chest pain, was waiting for the 2nd lactic to resolve. The 2nd lactic acid returned elevated, likely secondary to multiple breathing treatments. At this time, sepsis is still not suspected. Patient will be treated empirically with antibiotic. Patient is not short of breath for he is still wheezing quite a bit. I discussed the patient with our hospitalist, patient will be admitted. It is likely that the patient's initial episode of shortness of breath was triggered by the allergic reaction. Patient's troponin 17, likely due to demand ischemia. Patient does not have chest pain. From EKG from May 2020 MDM - SOB/Dyspnea Lab Data Result diagrams: 10/26/20 19:20 10/26/20 18:23 Labs: Lab Results 10/26/20 10/26/20 10/26/20 Range/Units 18:23 18:38 18:45 WBC (4.8-10.8) X10*3/uL RBC (4.60-5.80) X10*6/uL Hgb (14.0-18.0) g/dl Hct (42-52) % MCV (80-98) fL MCH (27.0-33.0) pg MCHC (31.0-36.0) g/dl RDW (11.0-16.0) % Plt Count (160-400) X10*3/uL MPV (9.4-12.4) fL Immature Gran % (Auto) (0.0-0.4) % Neut % (Auto) (45-73) % Lymph % (Auto) (20-40) % [place] % (Auto) (2-11) % Eos % (Auto) (0-4) % Baso % (Auto) (0-2) % Lymph # (Auto) (1.2-4.9) X10*3/uL [place] # (Auto) (0.1-1.2) X10*3/uL Eos # (Auto) (0.0-0.4) X10*3/uL Baso # (Auto) (0.0-0.2) X10*3/uL Abs Immat Gran (auto) (0.00-0.03) X10*3/uL Absolute Neuts (auto) (2.0-8.3) X10*3/uL Absolute Nucleated RBC (0.0-0.012) X10*3/uL Nucleated RBC % (auto) (0.0-0.2) /100WBC Sodium 143 (135-145) mmol/L Potassium 3.7 (3.3-5.1) mmol/L Chloride 106 (96-108) mmol/L Carbon Dioxide 23 (22-29) mmol/L Anion Gap 18 (12-20) BUN 19 H (9-16) mg/dL Creatinine 1.12 (0.5-1.4) mg/dL Estim Creat Clear Calc 51.1 Estimated GFR > 60 Random Glucose 141 H (60-115) mg/dL Lactic Acid (0.5-2.0) mmol/L Lactic Acid Fup @ 2Hr (0.5-2.0) mmol/L Calcium 9.6 D (8.4-10.2) mg/dL Total Bilirubin 0.5 (0.0-1.0) mg/dL Direct Bilirubin 0.2 (0.0-0.5) mg/dL AST 21 (5-37) U/L ALT 19 (0-40) U/L Alkaline Phosphatase 75 (39-117) U/L Troponin I High Sens (<3.5-35.0) ng/L B-Natriuretic Peptide (<100) pg/mL Total Protein 7.2 (6.5-8.0) g/dL Albumin 4.1 (3.5-5.0) g/dL Coronavirus (PCR) NEGATIVE (Negative) Influenza Type A (PCR) NEGATIVE (Negative) Influenza Type B (PCR) NEGATIVE (Negative) RSV RNA Qual (PCR) NEGATIVE (Negative) 10/26/20 10/26/20 10/26/20 Range/Units 19:20 19:20 19:20 WBC 13.6 H (4.8-10.8) X10*3/uL RBC 5.33 (4.60-5.80) X10*6/uL Hgb 15.9 (14.0-18.0) g/dl Hct 49.3 (42-52) % MCV 92.5 (80-98) fL MCH 29.8 (27.0-33.0) pg MCHC 32.3 (31.0-36.0) g/dl RDW 11.9 (11.0-16.0) % Plt Count 182 (160-400) X10*3/uL MPV 9.1 L (9.4-12.4) fL Immature Gran % (Auto) 0.4 (0.0-0.4) % Neut % (Auto) 82.5 H (45-73) % Lymph % (Auto) 7.4 L (20-40) % [place] % (Auto) 9.5 (2-11) % Eos % (Auto) 0.1 (0-4) % Baso % (Auto) 0.1 (0-2) % Lymph # (Auto) 1.0 L (1.2-4.9) X10*3/uL [place] # (Auto) 1.3 H (0.1-1.2) X10*3/uL Eos # (Auto) 0.0 (0.0-0.4) X10*3/uL Baso # (Auto) 0.0 (0.0-0.2) X10*3/uL Abs Immat Gran (auto) 0.06 H (0.00-0.03) X10*3/uL Absolute Neuts (auto) 11.2 H (2.0-8.3) X10*3/uL Absolute Nucleated RBC 0.000 (0.0-0.012) X10*3/uL Nucleated RBC % (auto) 0.0 (0.0-0.2) /100WBC Sodium (135-145) mmol/L Potassium (3.3-5.1) mmol/L Chloride (96-108) mmol/L Carbon Dioxide (22-29) mmol/L Anion Gap (12-20) BUN (9-16) mg/dL Creatinine (0.5-1.4) mg/dL Estim Creat Clear Calc Estimated GFR Random Glucose (60-115) mg/dL Lactic Acid 2.1 H* (0.5-2.0) mmol/L Lactic Acid Fup @ 2Hr (0.5-2.0) mmol/L Calcium (8.4-10.2) mg/dL Total Bilirubin (0.0-1.0) mg/dL Direct Bilirubin (0.0-0.5) mg/dL AST (5-37) U/L ALT (0-40) U/L Alkaline Phosphatase (39-117) U/L Troponin I High Sens 17.1 (<3.5-35.0) ng/L B-Natriuretic Peptide 54 (<100) pg/mL Total Protein (6.5-8.0) g/dL Albumin (3.5-5.0) g/dL Coronavirus (PCR) (Negative) Influenza Type A (PCR) (Negative) Influenza Type B (PCR) (Negative) RSV RNA Qual (PCR) (Negative) 10/26/20 Range/Units 22:00 WBC (4.8-10.8) X10*3/uL RBC (4.60-5.80) X10*6/uL Hgb (14.0-18.0) g/dl Hct (42-52) % MCV (80-98) fL MCH (27.0-33.0) pg MCHC (31.0-36.0) g/dl RDW (11.0-16.0) % Plt Count (160-400) X10*3/uL MPV (9.4-12.4) fL Immature Gran % (Auto) (0.0-0.4) % Neut % (Auto) (45-73) % Lymph % (Auto) (20-40) % [place] % (Auto) (2-11) % Eos % (Auto) (0-4) % Baso % (Auto) (0-2) % Lymph # (Auto) (1.2-4.9) X10*3/uL [place] # (Auto) (0.1-1.2) X10*3/uL Eos # (Auto) (0.0-0.4) X10*3/uL Baso # (Auto) (0.0-0.2) X10*3/uL Abs Immat Gran (auto) (0.00-0.03) X10*3/uL Absolute Neuts (auto) (2.0-8.3) X10*3/uL Absolute Nucleated RBC (0.0-0.012) X10*3/uL Nucleated RBC % (auto) (0.0-0.2) /100WBC Sodium (135-145) mmol/L Potassium (3.3-5.1) mmol/L Chloride (96-108) mmol/L Carbon Dioxide (22-29) mmol/L Anion Gap (12-20) BUN (9-16) mg/dL Creatinine (0.5-1.4) mg/dL Estim Creat Clear Calc Estimated GFR Random Glucose (60-115) mg/dL Lactic Acid (0.5-2.0) mmol/L Lactic Acid Fup @ 2Hr 3.6 H* (0.5-2.0) mmol/L Calcium (8.4-10.2) mg/dL Total Bilirubin (0.0-1.0) mg/dL Direct Bilirubin (0.0-0.5) mg/dL AST (5-37) U/L ALT (0-40) U/L Alkaline Phosphatase (39-117) U/L Troponin I High Sens (<3.5-35.0) ng/L B-Natriuretic Peptide (<100) pg/mL Total Protein (6.5-8.0) g/dL Albumin (3.5-5.0) g/dL Coronavirus (PCR) (Negative) Influenza Type A (PCR) (Negative) Influenza Type B (PCR) (Negative) RSV RNA Qual (PCR) (Negative) Imaging Data Chest x-ray: Radiologist's impression: FINDINGS: Lungs are well expanded. The bronchial bethea are diffusely thickened, as may be seen in the setting of asthma or bronchitis. No focal pulmonary opacity. No consolidation, pleural effusion or pneumothorax. Cardiomediastinal silhouette is normal size and contour. 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 Posterior cervical spine fusion hardware is seen to level of T1. XR/XR chest 1V IMPRESSION: * The bronchial bethea are diffusely thickened. Correlate for history of asthma or bronchitis. * No evidence of consolidation/pneumonia. ECG Data Attestation: I personally reviewed and interpreted this ECG as follows: (Sinus tachycardia, heart rate 117, nonspecific T-wave abnormalities in inferior leads, V3 and V4. QTC 513, no EKG changes from EKG of 06/19/2020) Discharge Plan Discharge Clinical Impression: Acute bronchospasm Allergic reaction Qualifiers: Encounter type: initial encounter Qualified Code(s): T78.40XA - Allergy, unspecified, initial encounter Patient Disposition: Admitted As Inpatient
[2020-10-26] MEDS: 0.9 % Sodium Chloride 1,000 ML 999 ML IVCONT ×2 (19:01→21:01)
[2020-10-26 19:10] LABS: Anion Gap 18 (12-20); Blood Urea Nitrogen 19 mg/dL (9-16); Calcium 9.6 mg/dL (8.4-10.2); Carbon Dioxide 23 mmol/L (22-29); Chloride 106 mmol/L (96-108); Creatinine Clr Calc Pharmacy 51.1; Estimated Glomerular Filt Rate > 60; Glucose Random 141 mg/dL (60-115); Potassium 3.7 mmol/L (3.3-5.1); Sodium 143 mmol/L (135-145)
[2020-10-26 19:26] LABS: Basophils Percent Auto 0.1 % (0-2); Eosinophils Percent Auto 0.1 % (0-4); Hematocrit 49.3 % (42-52); Hemoglobin 15.9 g/dl (14.0-18.0); Imm Gran Abs Auto 0.06 X10*3/uL (0.00-0.03); Imm Gran Pct Auto 0.4 % (0.0-0.4); Lymphocytes Percent Auto 7.4 % (20-40); Mean Corpuscular HGB Conc 32.3 g/dl (31.0-36.0); Mean Corpuscular Hemoglobin 29.8 pg (27.0-33.0); Mean Corpuscular Volume 92.5 fL (80-98); Mean Platelet Volume 9.1 fL (9.4-12.4); Monocytes Absolute Auto 1.3 X10*3/uL (0.1-1.2); Monocytes Percent Auto 9.5 % (2-11); Neutrophils Absolute Auto 11.2 X10*3/uL (2.0-8.3); Neutrophils Percent Auto 82.5 % (45-73); Platelet Count 182 X10*3/uL (160-400); Red Blood Count 5.33 X10*6/uL (4.60-5.80); Red Cell Distribution Width 11.9 % (11.0-16.0); White Blood Count 13.6 X10*3/uL (4.8-10.8)
[2020-10-26 19:27] LABS: MANUAL DIFF FLAG NO
[2020-10-26 19:28] LABS: Alanine Aminotransferase 19 U/L (0-40); Albumin Level 4.1 g/dL (3.5-5.0); Alkaline Phosphatase 75 U/L (39-117); Aspartate Amino Transferase 21 U/L (5-37); Bilirubin Direct 0.2 mg/dL (0.0-0.5); Bilirubin Total 0.5 mg/dL (0.0-1.0); Total Protein 7.2 g/dL (6.5-8.0)
[2020-10-26 20:01] LABS: B Type Natriuretic Peptide 54 pg/mL (<100)
[2020-10-26 20:14] LABS: Lactic Acid 2.1 mmol/L (0.5-2.0)
[2020-10-26 20:17] LABS: Influenza A PCR NEGATIVE (Negative); Influenza B PCR NEGATIVE (Negative); Resp Syncy Virus RNA Qual PCR NEGATIVE (Negative); SARS COV2 PCR INHOUSE NEGATIVE (Negative)
[2020-10-26 20:59] VITALS: BP 137/79; PULSE 110; RESP 19; TEMP 37.1; O2SAT 92
[2020-10-26 21:25] LABS: Reflex Lactate? Lactic Acid Added
--- NOTE | 2020-10-26 21:55 | PC.NURSE ---
Pt easily exerted when standing and pivoting. Several attempts at repeat lactic- pt difficult stick, continuing to attempt to obtain labs.
[2020-10-26 23:00] LABS: ~Lactic Acid-LAB USE ONLY 3.6 mmol/L (0.5-2.0)
[2020-10-27] VITALS (10 sets, daily range): BP systolic 121–188; BP diastolic 70–91; PULSE 85–107; RESP 15–20; TEMP 35.9–37.1; O2SAT 92–94
--- NOTE | 2020-10-27 | ECG_ITS ---
Test Reason : elevated Tn-I, anterior St depressions Blood Pressure : / mmHG Vent. Rate : 092 BPM Atrial Rate : 092 BPM P-R Int : 192 ms QRS Dur : 090 ms QT Int : 364 ms P-R-T Axes : 068 062 020 degrees QTc Int : 450 ms Normal sinus rhythm Moderate voltage criteria for LVH, may be normal variant Cannot rule out Inferior infarct , age undetermined Abnormal ECG When compared to the previous EKG of precordial ST depressions have improved Referred By: Tony Guzman Electronically Signed By:Jamie Wilson
[2020-10-27 00:12] LABS: Reflex Lactate? 2 Y
[2020-10-27] MEDS: Albuterol/Iprat 2.5/0.5MG 3 ML AMPUL.NEB INHALE ×4 (00:22→20:11)
[2020-10-27 00:37] LABS: Troponin-I High Sensitivity 17.1 ng/L (<3.5-35.0)
[2020-10-27] MEDS: Piperacillin Sodium/Tazobactam 3.375 GM in 0.9 % Sodium Chloride 50 ML IV (00:38)
--- NOTE | 2020-10-27 01:22 | P.HPHOSP_ITS ---
History of Present Illness Date of Service: 10/27/20 Chief Complaint: SOB This is an 80-year-old male with past medical history of COPD, BPH, HTN, presents to hospital with complaints of shortness of breath. Patient reports that he has been shortness of breath for the past few weeks that worsened the past few days. He also is complaining of coughing episodes, phlegm production, chills no fever, left mid axillary pain that feels like pins and needles that worsened with inspiration. Left-sided abdominal pain that is 2/10, diarrhea that started today, 2 episode,, denies any headache, change in vision, no chest pain, no palpitations, no nausea or vomiting, no urinary symptom Plan lower extremity edema It was noted that on arrival to the ED patient had significant hives and was itching all over. Patient reports that he does not know what he is allergic to, and he did realize he had an allergic reaction to something Patient hemodynamically stable with vitals significant for temp of 97.9?, heart rate of 102, respiratory 22, blood pressure of 129/93, satting 91% on room air, Labs are significant for WBC count of 13.6, lactic acid of 2.1, labs otherwise unremarkable, Chest x-ray shows the bronchial bethea are diffusely thickened correlated with history of asthma or bronchitis, no evidence of consolidation/pneumonia Patient will be admitted for further management Review of Systems Review of Systems: Yes all other systems are reviewed and are negative [facility] Medical History BPH (benign prostatic hyperplasia) COPD (chronic obstructive pulmonary disease) HTN (hypertension) Pneumonia Pneumonitis Pulmonary nodules Social History Household Members: Spouse Housing: House Do you presently have visiting nurse or other home services: No Alcohol intake: never Patient Tobacco Use Status: Former Tobacco user Tobacco use type: Cigarette Smoked in Last 30 Days: No Use of substances other than those prescribed or required for medical reasons: No Currently Displaying Signs/Symptoms of Drug Intoxication Withdrawal: No Any prior treatment program specific to substance use: No Have you been hit, kicked, punched, or otherwise hurt by someone within the past year? If so, by whom?: No Do you feel safe in your current relationship?: Yes Is there a partner from a previous relationship who is making you feel unsafe now?: No Are you made to feel afraid or neglected: No Advance Directives: No Advance Directives Information Provided: No Do you have thoughts of harming others: None Do you have a plan to hurt others: No Plan Recently lost weight without trying: No Eating poorly because of decreased appetite: No Nutrition Risks: Difficulty swallowing Poor oral hygiene: No service: No Current occupational status: retired Meds Allergies Allergy/AdvReac Type Severity Reaction Status Date / Time ibuprofen Allergy Mild Gastrointestinal Verified 08/07/20 22:20 Upset Home Medications Medication Instructions Recorded Confirmed Last Taken Type Trelegy Ellipta 1 inh INHALATION BEDTIME 06/19/20 10/27/20 Unknown History albuterol sulfate [ProAir HFA] 2 puff INHALATION QID PRN 06/19/20 10/27/20 Unknown History atenolol 25 mg PO DAILY 06/19/20 10/27/20 06/19/20 History fluticasone propionate 1 spray INTRANASAL DAILY 06/19/20 10/27/20 Unknown History losartan 100 mg PO DAILY 06/19/20 10/27/20 06/19/20 History oxycodone-acetaminophen 1 tab PO QID PRN 06/19/20 10/27/20 Unknown History tamsulosin 0.4 mg PO BEDTIME 06/19/20 10/27/20 06/11/20 History Physical Exam Vital Signs and Narrative: Vital Signs: Last Vital Signs Temp 98.7 F 10/26/20 20:59 Pulse 107 H 10/27/20 00:22 Resp 19 10/26/20 20:59 BP 137/79 10/26/20 20:59 Pulse Ox 92 10/26/20 20:59 Body Mass Index 36.3 Const: General: cooperative and no acute distress Orientation/consciousness: patient oriented x3 Eyes: General: appearance normal, both eyes and all related structures Resp: Effort & Inspection: normal respiratory effort and able to speak in complete sentences Auscultation: clear to auscultation bilaterally Cardio: Rate: regular rate Rhythm: regular rhythm GI: Palpation (GI): Soft to palpation Auscultation: normal bowel sounds Skin: General skin exam: no rashes or lesions noted Neuro: General: patient oriented x3 Cognition (Neuro): normal cognition Extrem: General: Yes normal to inspection and Yes no pedal edema Results Labs CBC and Chem 7: 10/26/20 19:20 10/26/20 18:23 Labs: Laboratory Results - last 24 hr 10/26/20 10/26/20 10/26/20 18:23 18:38 18:45 MCV MCH MCHC RDW Plt Count MPV Immature Gran % (Auto) Neut % (Auto) Lymph % (Auto) [place] % (Auto) Eos % (Auto) Baso % (Auto) Lymph # (Auto) [place] # (Auto) Eos # (Auto) Baso # (Auto) Abs Immat Gran (auto) Absolute Neuts (auto) Absolute Nucleated RBC Nucleated RBC % (auto) Anion Gap 18 Estim Creat Clear Calc 51.1 Estimated GFR > 60 Random Glucose 141 H Lactic Acid Lactic Acid Fup @ 2Hr Calcium 9.6 D Total Bilirubin 0.5 Direct Bilirubin 0.2 AST 21 ALT 19 Alkaline Phosphatase 75 Troponin I High Sens B-Natriuretic Peptide Total Protein 7.2 Albumin 4.1 Coronavirus (PCR) NEGATIVE Influenza Type A (PCR) NEGATIVE Influenza Type B (PCR) NEGATIVE RSV RNA Qual (PCR) NEGATIVE 10/26/20 10/26/20 10/26/20 19:20 19:20 19:20 MCV 92.5 MCH 29.8 MCHC 32.3 RDW 11.9 Plt Count 182 MPV 9.1 L Immature Gran % (Auto) 0.4 Neut % (Auto) 82.5 H Lymph % (Auto) 7.4 L [place] % (Auto) 9.5 Eos % (Auto) 0.1 Baso % (Auto) 0.1 Lymph # (Auto) 1.0 L [place] # (Auto) 1.3 H Eos # (Auto) 0.0 Baso # (Auto) 0.0 Abs Immat Gran (auto) 0.06 H Absolute Neuts (auto) 11.2 H Absolute Nucleated RBC 0.000 Nucleated RBC % (auto) 0.0 Anion Gap Estim Creat Clear Calc Estimated GFR Random Glucose Lactic Acid 2.1 H* Lactic Acid Fup @ 2Hr Calcium Total Bilirubin Direct Bilirubin AST ALT Alkaline Phosphatase Troponin I High Sens 17.1 B-Natriuretic Peptide 54 Total Protein Albumin Coronavirus (PCR) Influenza Type A (PCR) Influenza Type B (PCR) RSV RNA Qual (PCR) 10/26/20 22:00 MCV MCH MCHC RDW Plt Count MPV Immature Gran % (Auto) Neut % (Auto) Lymph % (Auto) [place] % (Auto) Eos % (Auto) Baso % (Auto) Lymph # (Auto) [place] # (Auto) Eos # (Auto) Baso # (Auto) Abs Immat Gran (auto) Absolute Neuts (auto) Absolute Nucleated RBC Nucleated RBC % (auto) Anion Gap Estim Creat Clear Calc Estimated GFR Random Glucose Lactic Acid Lactic Acid Fup @ 2Hr 3.6 H* Calcium Total Bilirubin Direct Bilirubin AST ALT Alkaline Phosphatase Troponin I High Sens B-Natriuretic Peptide Total Protein Albumin Coronavirus (PCR) Influenza Type A (PCR) Influenza Type B (PCR) RSV RNA Qual (PCR) Imaging Radiologist's Impressions: Impressions Chest X-Ray 10/26/20 17:56 IMPRESSION: * The bronchial bethea are diffusely thickened. Correlate for history of asthma or bronchitis. * No evidence of consolidation/pneumonia. Assessment and Plan (1) Allergic reaction: Qualifiers: Encounter type: initial encounter Qualified Code(s): T78.40XA - Allergy, unspecified, initial encounter Status: Acute (2) Acute bronchospasm: Status: Acute (3) COPD (chronic obstructive pulmonary disease): Qualifiers: COPD type: chronic bronchitis Chronic bronchitis type: mucopurulent Qualified Code(s): J41.1 - Mucopurulent chronic bronchitis Status: Acute This is an 80-year-old male with past medical history of COPD who presents to the hospital after having an allergic reaction and found to have hives, and is well complaining of shortness of breath # dyspnea - most likely secondary to acute bronchospasm versus COPD exacerbation - not hypoxic, - no evidence of pneumonia or consolidations chest x-ray - will start him on Solu-Medrol 40 IV b.i.d., DuoNeb p.r.n. and scheduled - monitor respiratory status # allergic reaction - resolved after receiving IV steroids - patient does not remember any new food, any new exposure - may need follow-up with outpatient animal care supervisor a to figure out what he is allergic to the cause him to have the significant hives as well as shortness of breath # COPD exacerbation - has cough, shortness of breath, sputum production - IV steroids as above - breathing treatment - monitor respiratory status # hypertension - stable - continue home atenolol, losartan # BPH - continue tamsulosin DVT prophylaxis: heparin subq
[2020-10-27 03:13] LABS: ~Lactic Acid-LAB USE ONLY 7.7 mmol/L (0.5-2.0)
[2020-10-27 03:21] LABS: Troponin-I High Sensitivity 30.2 ng/L (<3.5-35.0)
[2020-10-27] MEDS: Heparin Sodium,Porcine 5,000 UNIT/ML VIAL 5000 UNIT SUBCUT ×2 (03:46→13:40)
--- NOTE | 2020-10-27 05:24 | PC.NURSE ---
NEW ADMISSION TO ROOM 368-1 NOTED TO HAVE AN ELEVATED LACTIC LEVEL DURING TX IN ED AND REPORTED BY ED RN TO THIS WRITER2.1, THEN 3.6. AFTER TRANSFER TO [place] [id number] FOR INPT ADMISSION, NOTED FOLLOW UP LACTIC LEVEL WAS 7.7. NO CALL WAS RECEIVED FROM THE LAB DEPARTMENT, PATIENT ALERT AND ORIENTED, VITALS 154/[id number] AND O2 SAT OF 94% ON ROOM AIR. HOSPITALIST MADE AWARE OF LAB RESULTS VIA TIGER TEXT AT [id number].WHILE ASKING FOR PRN PAIN MEDICATIONS AT HOME FOR GENERAL DISCOMFORT.NO S/SX ACUTE RESP DISTRESS, NOTED SOB WITH ACTIVITY THAT RESOLVES AT REST AWAITING IF FOLLOW UP ORDERS.
[2020-10-27] MEDS: methylPREDNISolone Sod Succ 40 MG/ML VIAL IVPUSH ×2 (05:54→17:34)
[2020-10-27] MEDS: Lactated Ringers 1,000 ML 100 ML IVCONT ×2 (06:27→17:40)
[2020-10-27] MEDS: Montelukast Sodium 10 MG TABLET PO (08:44)
[2020-10-27] MEDS: atenoloL 25 MG TABLET PO (08:44)
[2020-10-27] MEDS: Losartan Potassium 50 MG TABLET 100 MG PO (08:44)
[2020-10-27] MEDS: oxyCODONE HCl Immed Release 5 MG TABLET PO ×2 (08:47→20:54)
[2020-10-27] MEDS: Acetaminophen 325 MG TABLET 650 MG PO (08:54)
--- NOTE | 2020-10-27 10:36 | MHC.CM.PN ---
CM MET WITH PT WHO REPORTS HE LIVES WITH HIS AND IS INDEPENDENT WITH SELF CARE. PT REPORTS HE USES A CANE TO AMBULATE BUT HAS A WALKER IF NEEDED. PT DENIES HAVING IN HOME SERVICES. PT REPORTS HIS PCP IS ARIA CAMERON. PT HAS A HCP ON FILE HE REPORTS CURRENT. IMM DELIVERED CURRENT DC PLAN IS HOME WITH NO SERVICES FAMILY WILL TRANSPORT
--- NOTE | 2020-10-27 13:02 | P.PNIM_ITS ---
Subjective Subjective Date of Service: 10/27/20 Interval History: still c/o dyspnea, wheezing not hypoxic denies chest pain hives/itching resolved denies new creams/soaps/detergents prior RAST testing negative Physical Exam Vital Signs: Vital Signs: Last Vital Signs Temp 97.5 F 10/27/20 11:56 Pulse 85 10/27/20 11:56 Resp 19 10/27/20 11:56 BP 165/84 H 10/27/20 11:56 Pulse Ox 92 10/27/20 11:56 Body Mass Index 36.3 Gen: coughing, mild dyspnea HEENT: sclera anicteric, moist mucus membranes Neck: supple Lungs: diffuse inspiratory rhonchi and expiratory wheezes Heart: regular rate and rhythm, no murmurs Abd: soft, non-tender, non-distended Ext: no edema, no clubbing Skin: warm/well-perfused, no rashes noted Neuro: alert and oriented x3, no focal findings Psych: appropriate affect Objective Data Current Medications Generic Name Dose Route Start Last Admin Trade Name Yvanq PRN Reason Stop Dose Admin Acetaminophen 650 mg 10/27/20 01:26 10/27/20 08:54 Acetaminophen 325 Mg Tablet PO 650 mg Q6H PRN Administration Pain, Mild (Pain Scale 1-3) Albuterol/Ipratropium 3 ml 10/27/20 08:00 10/27/20 11:31 Albuterol/Iprat 2.5/0.5mg 3 Ml Ampul.Neb INHALE Not Given RQ4H WHILE AWAKE KRISTIN Albuterol/Ipratropium 3 ml 10/27/20 01:26 Albuterol/Iprat 2.5/0.5mg 3 Ml Ampul.Neb INHALE RQ4H PRN Shortness of Breath/Wheezing Atenolol 25 mg 10/27/20 09:00 10/27/20 08:44 Atenolol 25 Mg Tablet PO 25 mg DAILY KRISTIN Administration Protocol Docusate Sodium 100 mg 10/27/20 01:26 Docusate Sodium 100 Mg Capsule PO DAILY PRN Constipation Heparin Sodium (Porcine) 5,000 unit 10/27/20 02:00 10/27/20 03:46 Heparin Sodium,Porcine 5,000 Unit/Ml Vial SUBCUT 5,000 unit Q12H KRISTIN Administration Lactated Ringer's 1,000 mls @ 100 mls/hr 10/27/20 06:00 10/27/20 06:27 Lr IVCONT 100 mls/hr .Q10H KRISTIN Administration Losartan Potassium 100 mg 10/27/20 09:00 10/27/20 08:44 Losartan Potassium 50 Mg Tablet PO 100 mg DAILY KRISTIN Administration Protocol Methylprednisolone Sodium Succinate 40 mg 10/27/20 06:00 10/27/20 05:54 Methylprednisolone Sod Succ 40 Mg/Ml Vial IVPUSH 40 mg Q12H KRISTIN Administration Montelukast Sodium 10 mg 10/27/20 09:00 10/27/20 08:44 Montelukast Sodium 10 Mg Tablet PO 10 mg DAILY KRISTIN Administration Ondansetron HCl 4 mg 10/27/20 01:26 Ondansetron Hcl 4 Mg/2 Ml Vial IVPUSH Q8H PRN Nausea and Vomiting Oxycodone HCl 5 mg 10/27/20 05:01 10/27/20 08:47 Oxycodone Hcl Immed Release 5 Mg Tablet PO 5 mg QID PRN Administration Pain (Scale Score 4-6) Sodium Chloride 3 ml 10/27/20 08:00 10/27/20 08:44 0.9 % Sodium Chloride Flush 3 Ml Syringe IVFLUSH Not Given QSHIFT [facility] Tamsulosin HCl 0.4 mg 10/27/20 21:00 Tamsulosin Hcl 0.4 Mg Capsule PO BEDTIME [facility] Labs CBC & Chem 7: 10/26/20 19:20 10/26/20 18:23 Labs: Laboratory Results - last 24 hr 10/26/20 10/26/20 10/26/20 18:23 18:38 18:45 WBC RBC Hgb Hct MCV MCH MCHC RDW Plt Count MPV Immature Gran % (Auto) Neut % (Auto) Lymph % (Auto) [place] % (Auto) Eos % (Auto) Baso % (Auto) Lymph # (Auto) [place] # (Auto) Eos # (Auto) Baso # (Auto) Abs Immat Gran (auto) Absolute Neuts (auto) Absolute Nucleated RBC Nucleated RBC % (auto) Sodium 143 Potassium 3.7 Chloride 106 Carbon Dioxide 23 Anion Gap 18 BUN 19 H Creatinine 1.12 Estim Creat Clear Calc 51.1 Estimated GFR > 60 Random Glucose 141 H Lactic Acid Lactic Acid Fup @ 2Hr Lactic Acid Fup @ 4Hr Calcium 9.6 D Total Bilirubin 0.5 Direct Bilirubin 0.2 AST 21 ALT 19 Alkaline Phosphatase 75 Troponin I High Sens B-Natriuretic Peptide Total Protein 7.2 Albumin 4.1 Coronavirus (PCR) NEGATIVE Influenza Type A (PCR) NEGATIVE Influenza Type B (PCR) NEGATIVE RSV RNA Qual (PCR) NEGATIVE 10/26/20 10/26/20 10/26/20 19:20 19:20 19:20 WBC 13.6 H RBC 5.33 Hgb 15.9 Hct 49.3 MCV 92.5 MCH 29.8 MCHC 32.3 RDW 11.9 Plt Count 182 MPV 9.1 L Immature Gran % (Auto) 0.4 Neut % (Auto) 82.5 H Lymph % (Auto) 7.4 L [place] % (Auto) 9.5 Eos % (Auto) 0.1 Baso % (Auto) 0.1 Lymph # (Auto) 1.0 L [place] # (Auto) 1.3 H Eos # (Auto) 0.0 Baso # (Auto) 0.0 Abs Immat Gran (auto) 0.06 H Absolute Neuts (auto) 11.2 H Absolute Nucleated RBC 0.000 Nucleated RBC % (auto) 0.0 Sodium Potassium Chloride Carbon Dioxide Anion Gap BUN Creatinine Estim Creat Clear Calc Estimated GFR Random Glucose Lactic Acid 2.1 H* Lactic Acid Fup @ 2Hr Lactic Acid Fup @ 4Hr Calcium Total Bilirubin Direct Bilirubin AST ALT Alkaline Phosphatase Troponin I High Sens 17.1 B-Natriuretic Peptide 54 Total Protein Albumin Coronavirus (PCR) Influenza Type A (PCR) Influenza Type B (PCR) RSV RNA Qual (PCR) 10/26/20 10/27/20 10/27/20 22:00 02:21 02:28 WBC RBC Hgb Hct MCV MCH MCHC RDW Plt Count MPV Immature Gran % (Auto) Neut % (Auto) Lymph % (Auto) [place] % (Auto) Eos % (Auto) Baso % (Auto) Lymph # (Auto) [place] # (Auto) Eos # (Auto) Baso # (Auto) Abs Immat Gran (auto) Absolute Neuts (auto) Absolute Nucleated RBC Nucleated RBC % (auto) Sodium Potassium Chloride Carbon Dioxide Anion Gap BUN Creatinine Estim Creat Clear Calc Estimated GFR Random Glucose Lactic Acid Lactic Acid Fup @ 2Hr 3.6 H* Lactic Acid Fup @ 4Hr 7.7 H* Calcium Total Bilirubin Direct Bilirubin AST ALT Alkaline Phosphatase Troponin I High Sens 30.2 D B-Natriuretic Peptide Total Protein Albumin Coronavirus (PCR) Influenza Type A (PCR) Influenza Type B (PCR) RSV RNA Qual (PCR) Assessment and Plan (1) COPD (chronic obstructive pulmonary disease): Status: Acute Assessment and Plan: hospital d#1 80 yoM with severe COPD/asthma overlap syndrome admitted for exacerbation # acute exacerbation of COPD/asthma overlap syndrome - IV methylprednisolone, scheduled/prn nebs - TTE ordered to r/o underlying cardiac disease # Tn-I elevation - delta >50% and EKG shows anterior ST depressions though pt denies pain, will obtain TTE and consult Cardiology, repeat hs-Tn-I and EKG, give ASA + statin # lactic acidosis - suspect bronchodilator effect rather than sepsis; will recheck level # question of allergic reaction - on steroids, 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
[2020-10-27] MEDS: Atorvastatin Calcium 80 MG TABLET PO (13:40)
[2020-10-27] MEDS: Aspirin 81 MG TAB.CHEW 324 MG PO (13:40)
[2020-10-27 14:28] LABS: Lactic Acid 3.1 mmol/L (0.5-2.0)
[2020-10-27 14:31] LABS: Troponin-I High Sensitivity 69.7 ng/L (<3.5-35.0)
--- NOTE | 2020-10-27 15:18 | PC.NURSE ---
dr penaloza aware of elevated trop, elevated lactic acid. patient denies chest pain. stat ekg obtained and texted to dr penaloza. reported to oncoming nurse.
[2020-10-27 15:32] LABS: Hematocrit 44.1 % (42-52); Hemoglobin 14.2 g/dl (14.0-18.0); Mean Corpuscular HGB Conc 32.2 g/dl (31.0-36.0); Mean Corpuscular Hemoglobin 29.9 pg (27.0-33.0); Mean Corpuscular Volume 92.8 fL (80-98); Mean Platelet Volume 9.7 fL (9.4-12.4); Platelet Count 196 X10*3/uL (160-400); Red Blood Count 4.75 X10*6/uL (4.60-5.80); Red Cell Distribution Width 12.1 % (11.0-16.0); White Blood Count 16.7 X10*3/uL (4.8-10.8)
[2020-10-27 15:36] LABS: INTERNATIONAL NORM RATIO 1.1 (0.9-1.1); Prothrombin Time 12.5 SEC (10.8-13.0)
[2020-10-27] MEDS: Heparin Sodium,Porcine 5,000 UNIT/ML VIAL 4000 UNIT IVPUSH (15:36)
[2020-10-27] MEDS: 0.9 % Sodium Chloride Flush 3 ML SYRINGE IVFLUSH (15:37)
[2020-10-27 15:43] LABS: Reflex Lactate? Lactic Acid Added
[2020-10-27] MEDS: Heparin Sodium,Porcine/1/2NS 25,000 UNIT/250 ML IV.SOLN 10 UNIT IVCONT (15:49)
[2020-10-27 17:58] LABS: Reflex Lactate? 2 Y
[2020-10-27 19:16] LABS: ~Lactic Acid-LAB USE ONLY 3.3 mmol/L (0.5-2.0)
[2020-10-27] MEDS: Tamsulosin HCL 0.4 MG CAPSULE PO (20:55)
[2020-10-27 23:24] LABS: PTT Heparin Drip 133.8 SEC (53-77.9)
[2020-10-28] VITALS (12 sets, daily range): BP systolic 160–178; BP diastolic 70–91; PULSE 73–90; RESP 16–20; TEMP 36.3–36.9; O2SAT 93–95
[2020-10-28 01:01] LABS: PTT Heparin Drip 76.8 SEC (53-77.9)
[2020-10-28] MEDS: Lactated Ringers 1,000 ML 100 ML IVCONT ×3 (03:52→23:34)
[2020-10-28] MEDS: methylPREDNISolone Sod Succ 40 MG/ML VIAL IVPUSH ×2 (06:04→17:58)
[2020-10-28] MEDS: Albuterol/Iprat 2.5/0.5MG 3 ML AMPUL.NEB INHALE ×3 (07:56→19:35)
[2020-10-28 08:42] LABS: Basophils Percent Auto 0.1 % (0-2); Hematocrit 43.9 % (42-52); Hemoglobin 14.2 g/dl (14.0-18.0); Imm Gran Abs Auto 0.15 X10*3/uL (0.00-0.03); Imm Gran Pct Auto 0.8 % (0.0-0.4); Lymphocytes Absolute Auto 1.1 X10*3/uL (1.2-4.9); Lymphocytes Percent Auto 5.5 % (20-40); MANUAL DIFF FLAG SCAN; Mean Corpuscular HGB Conc 32.3 g/dl (31.0-36.0); Mean Corpuscular Volume 92.8 fL (80-98); Mean Platelet Volume 10.2 fL (9.4-12.4); Monocytes Absolute Auto 1.5 X10*3/uL (0.1-1.2); Monocytes Percent Auto 7.9 % (2-11); Neutrophils Absolute Auto 16.7 X10*3/uL (2.0-8.3); Neutrophils Percent Auto 85.7 % (45-73); Platelet Count 198 X10*3/uL (160-400); Red Blood Count 4.73 X10*6/uL (4.60-5.80); Red Cell Distribution Width 12.2 % (11.0-16.0); SCAN SMEAR FLAG 1; White Blood Count 19.5 X10*3/uL (4.8-10.8)
[2020-10-28 08:44] LABS: PTT Heparin Drip 52.3 SEC (53-77.9)
[2020-10-28] MEDS: Losartan Potassium 50 MG TABLET 100 MG PO (08:49)
[2020-10-28] MEDS: Atorvastatin Calcium 80 MG TABLET PO (08:49)
[2020-10-28] MEDS: Aspirin 81 MG TAB.CHEW PO (08:50)
[2020-10-28] MEDS: Montelukast Sodium 10 MG TABLET PO (08:50)
[2020-10-28] MEDS: atenoloL 25 MG TABLET PO (08:50)
[2020-10-28 08:54] LABS: Anion Gap 13 (12-20); Blood Urea Nitrogen 19 mg/dL (9-16); Calcium 9.1 mg/dL (8.4-10.2); Carbon Dioxide 27 mmol/L (22-29); Chloride 106 mmol/L (96-108); Creatinine Clr Calc Pharmacy 62.9; Estimated Glomerular Filt Rate > 60; Glucose Random 129 mg/dL (60-115); Potassium 4.4 mmol/L (3.3-5.1); Sodium 142 mmol/L (135-145)
[2020-10-28] MEDS: Heparin Sodium,Porcine 5,000 UNIT/ML VIAL 3600 UNIT IVPUSH ×2 (08:56→23:27)
[2020-10-28 09:02] LABS: SLIDE REVIEW VERIFIED
--- NOTE | 2020-10-28 12:48 | PM.CNCAR ---
History of Present Illness History of Present Illness Date of Service: 10/28/20 Requesting physician: Tony Guzman Chief complaint: COPD Exacerbation, ECG changes Narrative: Pleasant 80-year-old gentleman with background history of COPD who is presenting for cough and shortness of breath. He also complained of some left-sided chest tightness. He was noticed to have precordial ST depressions which improved on subsequent EKG. No significant hypoxia was documented. Is still quite wheezy on examination. Denies any fevers or chills. Has been on heparin drip since yesterday. Blood pressure control is suboptimal. [facility] Past Medical History Medical History BPH (benign prostatic hyperplasia) COPD (chronic obstructive pulmonary disease) HTN (hypertension) Pneumonia Pneumonitis Pulmonary nodules Social History Social History Household Members: Spouse Housing: House Do you presently have visiting nurse or other home services: No Alcohol intake: never Patient Tobacco Use Status: Former Tobacco user Tobacco use type: Cigarette Smoked in Last 30 Days: No Use of substances other than those prescribed or required for medical reasons: No Currently Displaying Signs/Symptoms of Drug Intoxication Withdrawal: No Any prior treatment program specific to substance use: No Have you been hit, kicked, punched, or otherwise hurt by someone within the past year? If so, by whom?: No Do you feel safe in your current relationship?: Yes Is there a partner from a previous relationship who is making you feel unsafe now?: No Are you made to feel afraid or neglected: No Advance Directives: No Advance Directives Information Provided: No Do you have thoughts of harming others: None Do you have a plan to hurt others: No Plan Recently lost weight without trying: No Eating poorly because of decreased appetite: No Nutrition Risks: Difficulty swallowing Poor oral hygiene: No service: No Current occupational status: retired Meds Allergies Allergy/AdvReac Type Severity Reaction Status Date / Time ibuprofen Allergy Mild Gastrointestinal Verified 08/07/20 22:20 Upset Active Medications: Current Medications Generic Name Dose Route Start Last Admin Trade Name Freq PRN Reason Stop Dose Admin Acetaminophen 650 mg 10/27/20 01:26 10/27/20 08:54 Acetaminophen 325 Mg Tablet PO 650 mg Q6H PRN Administration Pain, Mild (Pain Scale 1-3) Albuterol/Ipratropium 3 ml 10/27/20 08:00 10/28/20 11:06 Albuterol/Iprat 2.5/0.5mg 3 Ml Ampul.Neb INHALE 3 ml RQ4H WHILE AWAKE KRISTIN Administration Albuterol/Ipratropium 3 ml 10/27/20 01:26 Albuterol/Iprat 2.5/0.5mg 3 Ml Ampul.Neb INHALE RQ4H PRN Shortness of Breath/Wheezing Aspirin 81 mg 10/28/20 09:00 10/28/20 08:50 Aspirin 81 Mg Tab.Chew PO 81 mg DAILY KRISTIN Administration Atenolol 25 mg 10/27/20 09:00 10/28/20 08:50 Atenolol 25 Mg Tablet PO 25 mg DAILY KRISTIN Administration Protocol Atorvastatin Calcium 80 mg 10/27/20 13:10 10/28/20 08:49 Atorvastatin Calcium 80 Mg Tablet PO 80 mg DAILY KRISTIN Administration Docusate Sodium 100 mg 10/27/20 01:26 Docusate Sodium 100 Mg Capsule PO DAILY PRN Constipation Heparin Sodium (Porcine) 3,600 unit 10/27/20 14:36 10/28/20 08:56 Heparin Sodium,Porcine 5,000 Unit/Ml Vial 40 unit/kg (3600 unit) 3,600 unit IVPUSH Administration BOLUS PRN 40 unit/kg - Heparin Protocol Heparin Sodium (Porcine) 7,200 unit 10/27/20 14:36 Heparin Sodium,Porcine 5,000 Unit/Ml Vial 80 unit/kg (7200 unit) IVPUSH BOLUS PRN 80 unit/kg - Heparin Protocol Lactated Ringer's 1,000 mls @ 100 mls/hr 10/27/20 06:00 10/28/20 12:18 Lr IVCONT Not Given .Q10H KRISTIN Heparin Sodium/Sodium Chloride 25,000 unit in 250 mls @ 0 mls/hr 10/27/20 14:45 10/28/20 08:57 IVCONT 9.11 units/kg/hr .Q0M KRISTIN 8.2 mls/hr Titration Protocol Per Protocol Losartan Potassium 100 mg 10/27/20 09:00 10/28/20 08:49 Losartan Potassium 50 Mg Tablet PO 100 mg DAILY KRISTIN Administration Protocol Methylprednisolone Sodium Succinate 40 mg 10/27/20 06:00 10/28/20 06:04 Methylprednisolone Sod Succ 40 Mg/Ml Vial IVPUSH 40 mg Q12H KRISTIN Administration Montelukast Sodium 10 mg 10/27/20 09:00 10/28/20 08:50 Montelukast Sodium 10 Mg Tablet PO 10 mg DAILY KRISTIN Administration Ondansetron HCl 4 mg 10/27/20 01:26 Ondansetron Hcl 4 Mg/2 Ml Vial IVPUSH Q8H PRN Nausea and Vomiting Oxycodone HCl 5 mg 10/27/20 05:01 10/27/20 20:54 Oxycodone Hcl Immed Release 5 Mg Tablet PO 5 mg QID PRN Administration Pain (Scale Score 4-6) Sodium Chloride 3 ml 10/27/20 08:00 10/28/20 08:47 0.9 % Sodium Chloride Flush 3 Ml Syringe IVFLUSH Not Given QSHIFT KRISTIN Tamsulosin HCl 0.4 mg 10/27/20 21:00 10/27/20 20:55 Tamsulosin Hcl 0.4 Mg Capsule PO 0.4 mg BEDTIME KRISTIN Administration Home Medications Medication Instructions Recorded Confirmed Last Taken Type Trelegy Ellipta 1 inh INHALATION BEDTIME 06/19/20 10/27/20 Unknown History albuterol sulfate [ProAir HFA] 2 puff INHALATION QID PRN 06/19/20 10/27/20 Unknown History atenolol 25 mg PO DAILY 06/19/20 10/27/20 06/19/20 History fluticasone propionate 1 spray INTRANASAL DAILY 06/19/20 10/27/20 Unknown History losartan 100 mg PO DAILY 06/19/20 10/27/20 06/19/20 History oxycodone-acetaminophen 1 tab PO QID PRN 06/19/20 10/27/20 Unknown History tamsulosin 0.4 mg PO BEDTIME 06/19/20 10/27/20 06/11/20 History Physical Exam Vital Signs: Vital Signs: Last Vital Signs Temp 97.4 F 10/28/20 11:24 Pulse 79 10/28/20 11:24 Resp 18 10/28/20 11:24 BP 177/79 H 10/28/20 11:24 Pulse Ox 93 10/28/20 11:24 Body Mass Index 36.3 GENERAL APPEARANCE: in no acute distress, pleasant. NECK: no carotid bruit, no jugular venous distention. SKIN: no suspicious lesions, warm and dry. HEART: no murmurs, regular rate and rhythm. LUNGS: Bilateral wheezes and rhonchi. ABDOMEN: soft, nontender. EXTREMITIES: no edema. PERIPHERAL PULSES: equal. NEUROLOGIC: No gross deficits, AAO X 3 Results Labs and Meds Result diagrams: 10/28/20 07:35 10/28/20 07:34 Lab results: Laboratory Results - last 24 hr 10/27/20 10/27/20 10/27/20 13:26 13:26 15:11 WBC 16.7 H RBC 4.75 Hgb 14.2 Hct 44.1 MCV 92.8 MCH 29.9 MCHC 32.2 RDW 12.1 Plt Count 196 MPV 9.7 Immature Gran % (Auto) Neut % (Auto) Lymph % (Auto) [place] % (Auto) Eos % (Auto) Baso % (Auto) Lymph # (Auto) [place] # (Auto) Eos # (Auto) Baso # (Auto) Abs Immat Gran (auto) Absolute Neuts (auto) Absolute Nucleated RBC 0.000 Nucleated RBC % (auto) 0.0 Smear Tech's Comments PT INR PTT (Heparin Protocol) Sodium Potassium Chloride Carbon Dioxide Anion Gap BUN Creatinine Estim Creat Clear Calc Estimated GFR Random Glucose Lactic Acid 3.1 H* Lactic Acid Fup @ 2Hr Lactic Acid Fup @ 4Hr Calcium Troponin I High Sens 69.7 H* D 10/27/20 10/27/20 10/27/20 15:11 15:54 18:25 WBC RBC Hgb Hct MCV MCH MCHC RDW Plt Count MPV Immature Gran % (Auto) Neut % (Auto) Lymph % (Auto) [place] % (Auto) Eos % (Auto) Baso % (Auto) Lymph # (Auto) [place] # (Auto) Eos # (Auto) Baso # (Auto) Abs Immat Gran (auto) Absolute Neuts (auto) Absolute Nucleated RBC Nucleated RBC % (auto) Smear Tech's Comments PT 12.5 INR 1.1 PTT (Heparin Protocol) 27.0 L Sodium Potassium Chloride Carbon Dioxide Anion Gap BUN Creatinine Estim Creat Clear Calc Estimated GFR Random Glucose Lactic Acid Lactic Acid Fup @ 2Hr 2.7 H* Lactic Acid Fup @ 4Hr 3.3 H* Calcium Troponin I High Sens 10/27/20 10/28/20 10/28/20 21:46 00:28 07:34 WBC RBC Hgb Hct MCV MCH MCHC RDW Plt Count MPV Immature Gran % (Auto) Neut % (Auto) Lymph % (Auto) [place] % (Auto) Eos % (Auto) Baso % (Auto) Lymph # (Auto) [place] # (Auto) Eos # (Auto) Baso # (Auto) Abs Immat Gran (auto) Absolute Neuts (auto) Absolute Nucleated RBC Nucleated RBC % (auto) Smear Tech's Comments PT INR PTT (Heparin Protocol) 133.8 H* D 76.8 D Sodium 142 Potassium 4.4 Chloride 106 Carbon Dioxide 27 Anion Gap 13 BUN 19 H Creatinine 0.91 Estim Creat Clear Calc 62.9 Estimated GFR > 60 Random Glucose 129 H Lactic Acid Lactic Acid Fup @ 2Hr Lactic Acid Fup @ 4Hr Calcium 9.1 Troponin I High Sens 10/28/20 10/28/20 10/28/20 07:34 07:34 07:34 WBC Cancelled RBC Cancelled Hgb Cancelled Hct Cancelled MCV Cancelled MCH Cancelled MCHC Cancelled RDW Cancelled Plt Count Cancelled MPV Cancelled Immature Gran % (Auto) Neut % (Auto) Lymph % (Auto) [place] % (Auto) Eos % (Auto) Baso % (Auto) Lymph # (Auto) [place] # (Auto) Eos # (Auto) Baso # (Auto) Abs Immat Gran (auto) Absolute Neuts (auto) Absolute Nucleated RBC Cancelled Nucleated RBC % (auto) Cancelled Smear Tech's Comments PT 12.0 INR 1.0 PTT (Heparin Protocol) 52.3 L D Sodium Potassium Chloride Carbon Dioxide Anion Gap BUN Creatinine Estim Creat Clear Calc Estimated GFR Random Glucose Lactic Acid Lactic Acid Fup @ 2Hr Lactic Acid Fup @ 4Hr Calcium Troponin I High Sens 10/28/20 07:35 WBC 19.5 H RBC 4.73 Hgb 14.2 Hct 43.9 MCV 92.8 MCH 30.0 MCHC 32.3 RDW 12.2 Plt Count 198 MPV 10.2 Immature Gran % (Auto) 0.8 H Neut % (Auto) 85.7 H Lymph % (Auto) 5.5 L [place] % (Auto) 7.9 Eos % (Auto) 0.0 Baso % (Auto) 0.1 Lymph # (Auto) 1.1 L [place] # (Auto) 1.5 H Eos # (Auto) 0.0 Baso # (Auto) 0.0 Abs Immat Gran (auto) 0.15 H Absolute Neuts (auto) 16.7 H Absolute Nucleated RBC 0.000 Nucleated RBC % (auto) 0.0 Smear Tech's Comments VERIFIED PT INR PTT (Heparin Protocol) Sodium Potassium Chloride Carbon Dioxide Anion Gap BUN Creatinine Estim Creat Clear Calc Estimated GFR Random Glucose Lactic Acid Lactic Acid Fup @ 2Hr Lactic Acid Fup @ 4Hr Calcium Troponin I High Sens Assessment and Plan (1) COPD (chronic obstructive pulmonary disease): Qualifiers: COPD type: chronic bronchitis Chronic bronchitis type: mucopurulent Qualified Code(s): J41.1 - Mucopurulent chronic bronchitis Status: Acute (2) Acute bronchospasm: Status: Acute (3) NSTEMI (non-ST elevated myocardial infarction): Status: Acute 80-year-old gentleman presenting for COPD exacerbation and allergic reaction/bronchospasm. Continues to be quite bronchospastic at this point. He had EKG changes with ST depressions which improved on subsequent EKG. He had mildly abnormal troponin level. He had complained of some left-sided chest tightness also. He was started on heparin drip for NSTEMI. I think it is appropriate to continue heparin drip right now. Blood pressure is elevated. I am adding amlodipine 5 mg once a day. Will do echocardiogram tomorrow. As his respiratory status improves we will consider ischemic evaluation. Thank you for allowing me to participate in the care of your patient. Please feel free to contact me if you have any questions. Procedures Date of Service Date of Service: 10/28/20
[2020-10-28] MEDS: amLODIPine Besylate 5 MG TABLET PO (12:59)
--- NOTE | 2020-10-28 13:13 | HO.PM.IMPN ---
Subjective Subjective Date of Service: 10/28/20 Interval History: Still dyspneic and wheezing. Pt does complain of intermittent, mild (3/10) L-sided discomfort below his ribcage. Physical Exam Vital Signs: Vital Signs: Last Vital Signs Temp 97.4 F 10/28/20 11:24 Pulse 79 10/28/20 12:59 Resp 18 10/28/20 11:24 BP 177/79 H 10/28/20 12:59 Pulse Ox 93 10/28/20 11:24 Body Mass Index 36.3 Gen: in no acute distress HEENT: sclera anicteric, moist mucus membranes Neck: supple Lungs: diffuse expiratory wheezes Heart: regular rate and rhythm, no murmurs Abd: soft, non-tender, non-distended Ext: no edema Skin: warm/well-perfused Neuro: alert and oriented x3, no focal findings Psych: appropriate affect Objective Data Current Medications Generic Name Dose Route Start Last Admin Trade Name Freq PRN Reason Stop Dose Admin Acetaminophen 650 mg 10/27/20 01:26 10/27/20 08:54 Acetaminophen 325 Mg Tablet PO 650 mg Q6H PRN Administration Pain, Mild (Pain Scale 1-3) Albuterol/Ipratropium 3 ml 10/27/20 08:00 10/28/20 11:06 Albuterol/Iprat 2.5/0.5mg 3 Ml Ampul.Neb INHALE 3 ml RQ4H WHILE AWAKE KRISTIN Administration Albuterol/Ipratropium 3 ml 10/27/20 01:26 Albuterol/Iprat 2.5/0.5mg 3 Ml Ampul.Neb INHALE RQ4H PRN Shortness of Breath/Wheezing Amlodipine Besylate 5 mg 10/28/20 13:00 10/28/20 12:59 Amlodipine Besylate 5 Mg Tablet PO 5 mg DAILY KRISTIN Administration Protocol Aspirin 81 mg 10/28/20 09:00 10/28/20 08:50 Aspirin 81 Mg Tab.Chew PO 81 mg DAILY KRISTIN Administration Atenolol 25 mg 10/27/20 09:00 10/28/20 08:50 Atenolol 25 Mg Tablet PO 25 mg DAILY KRISTIN Administration Protocol Atorvastatin Calcium 80 mg 10/27/20 13:10 10/28/20 08:49 Atorvastatin Calcium 80 Mg Tablet PO 80 mg DAILY KRISTIN Administration Docusate Sodium 100 mg 10/27/20 01:26 Docusate Sodium 100 Mg Capsule PO DAILY PRN Constipation Heparin Sodium (Porcine) 3,600 unit 10/27/20 14:36 10/28/20 08:56 Heparin Sodium,Porcine 5,000 Unit/Ml Vial 40 unit/kg (3600 unit) 3,600 unit IVPUSH Administration BOLUS PRN 40 unit/kg - Heparin Protocol Heparin Sodium (Porcine) 7,200 unit 10/27/20 14:36 Heparin Sodium,Porcine 5,000 Unit/Ml Vial 80 unit/kg (7200 unit) IVPUSH BOLUS PRN 80 unit/kg - Heparin Protocol Lactated Ringer's 1,000 mls @ 100 mls/hr 10/27/20 06:00 10/28/20 12:18 Lr IVCONT Not Given .Q10H KRISTIN Heparin Sodium/Sodium Chloride 25,000 unit in 250 mls @ 0 mls/hr 10/27/20 14:45 10/28/20 08:57 IVCONT 9.11 units/kg/hr .Q0M KRISTIN 8.2 mls/hr Titration Protocol Per Protocol Losartan Potassium 100 mg 10/27/20 09:00 10/28/20 08:49 Losartan Potassium 50 Mg Tablet PO 100 mg DAILY KRISTIN Administration Protocol Methylprednisolone Sodium Succinate 40 mg 10/27/20 06:00 10/28/20 06:04 Methylprednisolone Sod Succ 40 Mg/Ml Vial IVPUSH 40 mg Q12H KRISTIN Administration Montelukast Sodium 10 mg 10/27/20 09:00 10/28/20 08:50 Montelukast Sodium 10 Mg Tablet PO 10 mg DAILY KRISTIN Administration Ondansetron HCl 4 mg 10/27/20 01:26 Ondansetron Hcl 4 Mg/2 Ml Vial IVPUSH Q8H PRN Nausea and Vomiting Oxycodone HCl 5 mg 10/27/20 05:01 10/27/20 20:54 Oxycodone Hcl Immed Release 5 Mg Tablet PO 5 mg QID PRN Administration Pain (Scale Score 4-6) Sodium Chloride 3 ml 10/27/20 08:00 10/28/20 08:47 0.9 % Sodium Chloride Flush 3 Ml Syringe IVFLUSH Not Given QSHIFT KRISTIN Tamsulosin HCl 0.4 mg 10/27/20 21:00 10/27/20 20:55 Tamsulosin Hcl 0.4 Mg Capsule PO 0.4 mg BEDTIME KRISTIN Administration Labs CBC & Chem 7: 10/28/20 07:35 10/28/20 07:34 Labs: Laboratory Results - last 24 hr 10/27/20 10/27/20 10/27/20 13:26 13:26 15:11 WBC 16.7 H RBC 4.75 Hgb 14.2 Hct 44.1 MCV 92.8 MCH 29.9 MCHC 32.2 RDW 12.1 Plt Count 196 MPV 9.7 Immature Gran % (Auto) Neut % (Auto) Lymph % (Auto) Harnett % (Auto) Eos % (Auto) Baso % (Auto) Lymph # (Auto) [place]ett # (Auto) Eos # (Auto) Baso # (Auto) Abs Immat Gran (auto) Absolute Neuts (auto) Absolute Nucleated RBC 0.000 Nucleated RBC % (auto) 0.0 Smear Tech's Comments PT INR PTT (Heparin Protocol) Sodium Potassium Chloride Carbon Dioxide Anion Gap BUN Creatinine Estim Creat Clear Calc Estimated GFR Random Glucose Lactic Acid 3.1 H* Lactic Acid Fup @ 2Hr Lactic Acid Fup @ 4Hr Calcium Troponin I High Sens 69.7 H* D 10/27/20 10/27/20 10/27/20 15:11 15:54 18:25 WBC RBC Hgb Hct MCV MCH MCHC RDW Plt Count MPV Immature Gran % (Auto) Neut % (Auto) Lymph % (Auto) [place] % (Auto) Eos % (Auto) Baso % (Auto) Lymph # (Auto) [place] # (Auto) Eos # (Auto) Baso # (Auto) Abs Immat Gran (auto) Absolute Neuts (auto) Absolute Nucleated RBC Nucleated RBC % (auto) Smear Tech's Comments PT 12.5 INR 1.1 PTT (Heparin Protocol) 27.0 L Sodium Potassium Chloride Carbon Dioxide Anion Gap BUN Creatinine Estim Creat Clear Calc Estimated GFR Random Glucose Lactic Acid Lactic Acid Fup @ 2Hr 2.7 H* Lactic Acid Fup @ 4Hr 3.3 H* Calcium Troponin I High Sens 10/27/20 10/28/20 10/28/20 21:46 00:28 07:34 WBC RBC Hgb Hct MCV MCH MCHC RDW Plt Count MPV Immature Gran % (Auto) Neut % (Auto) Lymph % (Auto) [place] % (Auto) Eos % (Auto) Baso % (Auto) Lymph # (Auto) [place]ett # (Auto) Eos # (Auto) Baso # (Auto) Abs Immat Gran (auto) Absolute Neuts (auto) Absolute Nucleated RBC Nucleated RBC % (auto) Smear Tech's Comments PT INR PTT (Heparin Protocol) 133.8 H* D 76.8 D Sodium 142 Potassium 4.4 Chloride 106 Carbon Dioxide 27 Anion Gap 13 BUN 19 H Creatinine 0.91 Estim Creat Clear Calc 62.9 Estimated GFR > 60 Random Glucose 129 H Lactic Acid Lactic Acid Fup @ 2Hr Lactic Acid Fup @ 4Hr Calcium 9.1 Troponin I High Sens 10/28/20 10/28/20 10/28/20 07:34 07:34 07:34 WBC Cancelled RBC Cancelled Hgb Cancelled Hct Cancelled MCV Cancelled MCH Cancelled MCHC Cancelled RDW Cancelled Plt Count Cancelled MPV Cancelled Immature Gran % (Auto) Neut % (Auto) Lymph % (Auto) Harnett % (Auto) Eos % (Auto) Baso % (Auto) Lymph # (Auto) H[place]ett # (Auto) Eos # (Auto) Baso # (Auto) Abs Immat Gran (auto) Absolute Neuts (auto) Absolute Nucleated RBC Cancelled Nucleated RBC % (auto) Cancelled Smear Tech's Comments PT 12.0 INR 1.0 PTT (Heparin Protocol) 52.3 L D Sodium Potassium Chloride Carbon Dioxide Anion Gap BUN Creatinine Estim Creat Clear Calc Estimated GFR Random Glucose Lactic Acid Lactic Acid Fup @ 2Hr Lactic Acid Fup @ 4Hr Calcium Troponin I High Sens 10/28/20 07:35 WBC 19.5 H RBC 4.73 Hgb 14.2 Hct 43.9 MCV 92.8 MCH 30.0 MCHC 32.3 RDW 12.2 Plt Count 198 MPV 10.2 Immature Gran % (Auto) 0.8 H Neut % (Auto) 85.7 H Lymph % (Auto) 5.5 L Harnett % (Auto) 7.9 Eos % (Auto) 0.0 Baso % (Auto) 0.1 Lymph # (Auto) 1.1 L Harnett # (Auto) 1.5 H Eos # (Auto) 0.0 Baso # (Auto) 0.0 Abs Immat Gran (auto) 0.15 H Absolute Neuts (auto) 16.7 H Absolute Nucleated RBC 0.000 Nucleated RBC % (auto) 0.0 Smear Tech's Comments VERIFIED PT INR PTT (Heparin Protocol) Sodium Potassium Chloride Carbon Dioxide Anion Gap BUN Creatinine Estim Creat Clear Calc Estimated GFR Random Glucose Lactic Acid Lactic Acid Fup @ 2Hr Lactic Acid Fup @ 4Hr Calcium Troponin I High Sens Microbiology Microbiology Results: Microbiology 10/26/20 18:45 Blood - Venous Blood Culture - Preliminary No growth after 24 hours. 10/26/20 18:23 Blood - Venous Blood Culture - Preliminary No growth after 24 hours. Assessment and Plan (1) COPD (chronic obstructive pulmonary disease): Status: Acute Assessment and Plan: hospital d#2 80 yoM with severe COPD/asthma overlap syndrome admitted for exacerbation found to have NSTEMI (anterior ST depressions which have resolved, elevated hs-Tn-I) # NSTEMI - heparin gtt started 10/27/20, Cardiology consulted; plan TTE tomorrow and if respiratory status improves, ischemic workup; continue ASA + statin # acute exacerbation of COPD/asthma overlap syndrome - IV methylprednisolone d#2, scheduled/prn nebs # lactic acidosis - suspect bronchodilator effect rather than sepsis; improved # question of allergic reaction - on steroids, 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 amlodipine added. # BPH - continue tamsulosin # VTE ppx - on heparin gtt
[2020-10-28 15:19] LABS: PTT Heparin Drip 83.5 SEC (53-77.9)
[2020-10-28] MEDS: Heparin Sodium,Porcine/1/2NS 25,000 UNIT/250 ML IV.SOLN 6.4 UNIT IVCONT (17:58)
[2020-10-28] MEDS: Tamsulosin HCL 0.4 MG CAPSULE PO (20:23)
[2020-10-28] MEDS: oxyCODONE HCl Immed Release 5 MG TABLET PO (21:24)
[2020-10-28 22:20] LABS: PTT Heparin Drip 46.6 SEC (53-77.9)
[2020-10-29] VITALS (13 sets, daily range): BP systolic 113–185; BP diastolic 73–90; PULSE 76–110; RESP 14–18; TEMP 36.1–36.7; O2SAT 92–95
[2020-10-29] MEDS: 0.9 % Sodium Chloride Flush 3 ML SYRINGE IVFLUSH ×3 (00:51→21:16)
[2020-10-29] MEDS: Acetaminophen 325 MG TABLET 650 MG PO ×2 (04:10→21:16)
[2020-10-29] MEDS: Albuterol/Iprat 2.5/0.5MG 3 ML AMPUL.NEB INHALE ×4 (04:34→20:48)
[2020-10-29] MEDS: methylPREDNISolone Sod Succ 40 MG/ML VIAL IVPUSH ×2 (05:25→18:24)
[2020-10-29] MEDS: oxyCODONE HCl Immed Release 5 MG TABLET PO (05:32)
[2020-10-29 06:39] LABS: PTT Heparin Drip 83.7 SEC (53-77.9)
--- NOTE | 2020-10-29 07:30 | CA_ITS ---
Transthoracic Echocardiogram Amended Patient (Last, First, Middle): Adonis Truong, Gender: Male Date of : 1940 Age: 80 Procedure Date: 10/29/2020 Procedure Type: Transthoracic E[place] [facility] [place]: 157.48 cm Weight: 81.19 kg BSA: 1.82 m2 Heart Rate: bpm BP: 159 / 76 mmHg Manager Of Application Development: Referring MD: Tony Guzman MD Gas Desulfurizer: Thony Howell MD Symptoms: tn-I elevation Study Quality: Fair ECG Rhythm: Sinus Conclusions: - 1. Normal LV systolic function with mild LVH with impaired relaxation filling pattern with regional wall motion abnormality suggestive of underlying coronary artery disease2. Mildly dilated left atrium 3. Mild aortic stenosis 4. Normal RV systolic pressure 5. No pericardial effusion Findings Left Ventricle Normal left ventricular size and systolic function. There is mildly increased left ventricular wall thickness. The visually estimated ejection fraction is between 60-65%. There is evidence of regional wall motion abnormalities. Spectral Doppler is indicative of an impaired relaxation filling pattern. E/E prime ratio is between 8 and 15 consistent with indeterminate filling pressures. Wall Motion Rest Echo Findings The inferolateral wall is hypokinetic. The basal inferoseptal segment is akinetic. 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 All other scored wall segments showed normal motion. Right Ventricle Normal right ventricular cavity size and systolic function. Atria The left atrium is mildly dilated. There is lipomatous hypertrophy of the interatrial septum. There is no evidence of interatrial shunt. The right atrium is normal in size. Aortic Valve There is mild calcification of the aortic valve. There is mild thickening of the aortic valve. There is mild aortic valve stenosis. The mean gradient is 10 mmHg. The aortic valve area is 1.51 cm2. There is no aortic valve regurgitation. Mitral Valve There is mild anterior and posterior mitral leaflet thickening. There is trace mitral valve regurgitation. There is no mitral valve stenosis. Pulmonic Valve The pulmonic valve was not well visualized. Tricuspid Valve Likely normal tricuspid valve structure and function. There is mild tricuspid valve regurgitation. The right ventricular systolic pressure is normal. The right ventricular systolic pressure is 27 mmHg. Normal right atrial pressure. There is no evidence of pulmonary hypertension. Great Vessels All visible segments of the aorta are normal in size. The pulmonary artery was not well visualized. Venous The inferior vena cava is normal in size and collapses greater than 50% with inspiration. Pericardium/Pleural There is no evidence of pericardial effusion. Prior Study Comparison No significant change compared to prior study dated: 06/22/2020. Measurements 2D Linear Measurements IVSd: 1.30 0.6-0.9/0.6-1.0 cm LVIDd: 4.94 3.9-5.3/4.2-5.9 cm LVIDd Index: 2.71 2.4-3.2/2.2-3.1 cm/m2 LVIDs: 3.15 2.0-3.6 cm LVPWd: 1.32 0.7-1.1 cm Ao Root: 3.40 2.1-3.5 cm LA Diam: 3.80 2.7-3.8/3.0-4.0 cm LAIDs Index: 2.09 1.5-2.3 cm/m2 LV Mass: 323.99 67-162/88-224 g LV Mass Index: 178.02 43-95/49-115 g/m2 LVOT Diam: 2.10 3.0+(-)1.3 cm 2D Volumes LA Vol: 30.50 Mitral Valve MV Pk E: 0.75 MV PK A: 1.13 MV Decel Time: 173.00 E/A: 0.70 E'Lateral: 5.98 E'Medial: 3.48 E/E' Med: 21.40 E/E' Lat: 12.50 PHT: 51.00 MVA PHT: 4.31 Decel Pershing: 4.31 Aortic Valve AoV Pk Conner: 2.33 AoV Mn Conner: 1.45 AoV VTI: 0.48 AoV Pk Grad: 22.00 Aov Mn Grad: 10.00 GISELLA Cont.VTI: 1.51 LVOT LVOT Pk Conner: 0.86 LVOT Mn Conner: 0.58 LVOT VTI: 0.21 LVOT Pk Grad: 3.00 LVOT Mn Grad: 2.00 LVOT Diam: 2.10 LVOT Area: 3.46 Diastolic Function MV Pk E: 0.75 MV Pk A: 1.13 E/A: 0.70 E'Medial: 3.48 E/E' Med: 21.40 E' Laterial: 5.98 E/E' Lat: 12.50 Tricuspid Valve TR Pk Conner: 2.17 TR Pk Grad: 19.00 RA Press: 8.00 RVSP: 27.00 Great Vessels Aorta Ao Root-2D: 3.40 2.0-3.7 cm Pulmonary Valve PV Pk Conner: 1.45 Peak PV Grad: 8.00 Updated in Other Vendor System with Status of Final Thony Howell MD electronically signed on 10/29/2020 12:37:11 PM with status of Final
[2020-10-29] MEDS: Losartan Potassium 50 MG TABLET 100 MG PO (09:15)
[2020-10-29] MEDS: Atorvastatin Calcium 80 MG TABLET PO (09:15)
[2020-10-29] MEDS: Aspirin 81 MG TAB.CHEW PO (09:15)
[2020-10-29] MEDS: Montelukast Sodium 10 MG TABLET PO (09:16)
[2020-10-29] MEDS: atenoloL 25 MG TABLET PO (09:16)
[2020-10-29] MEDS: amLODIPine Besylate 5 MG TABLET PO (09:16)
[2020-10-29] MEDS: Lactated Ringers 1,000 ML 100 ML IVCONT (09:17)
--- NOTE | 2020-10-29 11:04 | P.PNCA_ITS ---
Subjective Subjective Date of Service: 10/29/20 Principal diagnosis: SOB, Abn EKG Interval history: Patient still having exertional shortness of breath. He says for about a year he has been having exertional tiredness and occasional chest discomfort but not exertional. He was admitted with COPD exacerbation. On admission at significant EKG changes suggestive anterior ischemia, could also be related to RV strain related to acute respiratory failure with hypoxia. Bronchospasm is improving, however still remains short of breath with exertion. Review of Systems Constitutional: Denies chills, Reports fatigue, Denies fever(s) and Reports lethargy Cardiovascular: Denies chest pain and Reports dyspnea on exertion Respiratory: Reports dyspnea on exertion and Reports wheezing Gastrointestinal: Reports no additional gastrointestinal complaints Reports system reviewed and no additional complaints, except as documented Psychiatric: Reports no additional psychiatric complaints Endocrine: Reports no additional endocrine complaints and Reports fatigue Allergic/Immunologic: Reports wheezing Physical Exam Vital Signs: Last Vital Signs Temp 98.0 F 10/29/20 07:44 Pulse 110 H 10/29/20 09:16 Resp 18 10/29/20 07:44 BP 153/74 H 10/29/20 09:16 Pulse Ox 95 10/29/20 07:44 Body Mass Index 36.3 Const General: cooperative, comfortable and no acute distress Nutritional Appearance: obese Orientation/consciousness: patient oriented x3 Neck Neck: Yes trachea midline, Yes supple and Yes no JVD Chest Chest palpation & inspection: abnormal inspection of the chest barrel chest Resp Effort & Inspection: normal respiratory effort Auscultation: wheezes expiratory wheezes and diminished lung sounds Cardio Jugular venous distension: no JVD Palpation: normal PMI Rate: regular rate Rhythm: regular rhythm Heart sounds: S1 normal heart sound present and S2 normal heart sound present Skin General skin exam: no rashes or lesions noted Neuro General: patient oriented x3 Extrem General: Yes no clubbing, cyanosis or edema Results Labs and Meds Result diagrams: 10/28/20 07:35 10/28/20 07:34 Lab results: Laboratory Results - last 24 hr 10/28/20 10/28/20 10/29/20 14:49 21:41 06:01 PTT (Heparin Protocol) 83.5 H D 46.6 L D 83.7 H D Progress Note: A&P Assessment and plan (1) NSTEMI (non-ST elevated myocardial infarction): Status: Acute Assessment and Plan: Patient presents with significant COPD exacerbation with marked EKG changes suggestive anterior ischemia, could also be due to RV strain from COPD exacerbation setting of severe COPD. Needs an echocardiogram. Given his multiple risk factors and strong family history, will require ischemic workup as an inpatient. Given that her is wheezing is improving will suggest her rest perfusion imaging today and stress perfusion imaging once his bronchospasm is completely resolved. IV heparin can be discontinued later today. Continue low- dose aspirin therapy. High-intensity statin therapy to be pursued. Would hold off on metoprolol therapy given his significant bronchospastic airway disease. Continue amlodipine therapy. Will follow with you. Thank you for allowing me to partake in his care (2) COPD exacerbation: Status: Acute Fall Risk Details Current Medications: Current Medications Generic Name Dose Route Start Last Admin Trade Name Freq PRN Reason Stop Dose Admin Acetaminophen 650 mg 10/27/20 01:26 10/29/20 04:10 Acetaminophen 325 Mg Tablet PO 650 mg Q6H PRN Administration Pain, Mild (Pain Scale 1-3) Albuterol/Ipratropium 3 ml 10/27/20 08:00 10/29/20 11:00 Albuterol/Iprat 2.5/0.5mg 3 Ml Ampul.Neb INHALE Not Given RQ4H WHILE AWAKE KRISTIN Albuterol/Ipratropium 3 ml 10/27/20 01:26 10/29/20 04:34 Albuterol/Iprat 2.5/0.5mg 3 Ml Ampul.Neb INHALE 3 ml RQ4H PRN Administration Shortness of Breath/Wheezing Amlodipine Besylate 5 mg 10/28/20 13:00 10/29/20 09:16 Amlodipine Besylate 5 Mg Tablet PO 5 mg DAILY KRISTIN Administration Protocol Aspirin 81 mg 10/28/20 09:00 10/29/20 09:15 Aspirin 81 Mg Tab.Chew PO 81 mg DAILY KRISTIN Administration Atenolol 25 mg 10/27/20 09:00 10/29/20 09:16 Atenolol 25 Mg Tablet PO 25 mg DAILY KRISTIN Administration Protocol Atorvastatin Calcium 80 mg 10/27/20 13:10 10/29/20 09:15 Atorvastatin Calcium 80 Mg Tablet PO 80 mg DAILY KRISTIN Administration Docusate Sodium 100 mg 10/27/20 01:26 Docusate Sodium 100 Mg Capsule PO DAILY PRN Constipation Heparin Sodium (Porcine) 3,600 unit 10/27/20 14:36 10/28/20 23:27 Heparin Sodium,Porcine 5,000 Unit/Ml Vial 40 unit/kg (3600 unit) 3,600 unit IVPUSH Administration BOLUS PRN 40 unit/kg - Heparin Protocol Heparin Sodium (Porcine) 7,200 unit 10/27/20 14:36 Heparin Sodium,Porcine 5,000 Unit/Ml Vial 80 unit/kg (7200 unit) IVPUSH BOLUS PRN 80 unit/kg - Heparin Protocol Lactated Ringer's 1,000 mls @ 100 mls/hr 10/27/20 06:00 10/29/20 09:17 Lr IVCONT 100 mls/hr .Q10H KRISTIN Administration Heparin Sodium/Sodium Chloride 25,000 unit in 250 mls @ 0 mls/hr 10/27/20 14:45 10/29/20 06:54 IVCONT 7.11 units/kg/hr .Q0M KRISTIN 6.4 mls/hr Titration Protocol Per Protocol Losartan Potassium 100 mg 10/27/20 09:00 10/29/20 09:15 Losartan Potassium 50 Mg Tablet PO 100 mg DAILY KRISTIN Administration Protocol Methylprednisolone Sodium Succinate 40 mg 10/27/20 06:00 10/29/20 05:25 Methylprednisolone Sod Succ 40 Mg/Ml Vial IVPUSH 40 mg Q12H KRISTIN Administration Montelukast Sodium 10 mg 10/27/20 09:00 10/29/20 09:16 Montelukast Sodium 10 Mg Tablet PO 10 mg DAILY KRISTIN Administration Ondansetron HCl 4 mg 10/27/20 01:26 Ondansetron Hcl 4 Mg/2 Ml Vial IVPUSH Q8H PRN Nausea and Vomiting Oxycodone HCl 5 mg 10/27/20 05:01 10/29/20 05:32 Oxycodone Hcl Immed Release 5 Mg Tablet PO 5 mg QID PRN Administration Pain (Scale Score 4-6) Sodium Chloride 3 ml 10/27/20 08:00 10/29/20 09:17 0.9 % Sodium Chloride Flush 3 Ml Syringe IVFLUSH Not Given QSHIFT KRISTIN Tamsulosin HCl 0.4 mg 10/27/20 21:00 10/28/20 20:23 Tamsulosin Hcl 0.4 Mg Capsule PO 0.4 mg BEDTIME KRISTIN Administration Time Spent With Patient Time: Total time spent is greater than 50% in coordination of care (as documented) at patient's floor/unit and/or counseling patient: Time with patient: 25 - 35 minutes Procedures Date of Service Date of Service: 10/29/20
--- NOTE | 2020-10-29 13:20 | P.PNIM_ITS ---
Subjective Subjective Date of Service: 10/29/20 Interval History: Complaining of headache sometimes right side other times at left h/o ch neck pain s/p surgery denies cp, mild sob with exertion. General headache, no dizziness no fever chills. CVS no chest pain, no palpitation. Respiratory no cough ,sob with exertion. Gastrointestinal no nausea no vomiting, no abdominal pain Physical Exam Vital Signs: Vital Signs: Last Vital Signs Temp 97.9 F 10/29/20 11:44 Pulse 80 10/29/20 11:44 Resp 18 10/29/20 11:44 BP 145/79 H 10/29/20 11:44 Pulse Ox 92 10/29/20 11:44 Body Mass Index 36.3 General no acute distress. Neck supple, no JVD. CVS regular rate rhythm, Respiratory lungs coarse breath sounds, no respiratory distress, occasional wheeze,no rales. Gastrointestinal abdomen soft, nontender, bowel sounds audible, no guarding , no rigidity. Extremities no edema. Neuro nonfocal , speech clear. Skin no rash Objective Data Current Medications Generic Name Dose Route Start Last Admin Trade Name Yvanq PRN Reason Stop Dose Admin Acetaminophen 650 mg 10/27/20 01:26 10/29/20 04:10 Acetaminophen 325 Mg Tablet PO 650 mg Q6H PRN Administration Pain, Mild (Pain Scale 1-3) Albuterol/Ipratropium 3 ml 10/27/20 08:00 10/29/20 11:00 Albuterol/Iprat 2.5/0.5mg 3 Ml Ampul.Neb INHALE Not Given RQ4H WHILE AWAKE [facility] Albuterol/Ipratropium 3 ml 10/27/20 01:26 10/29/20 04:34 Albuterol/Iprat 2.5/0.5mg 3 Ml Ampul.Neb INHALE 3 ml RQ4H PRN Administration Shortness of Breath/Wheezing Amlodipine Besylate 5 mg 10/28/20 13:00 10/29/20 09:16 Amlodipine Besylate 5 Mg Tablet PO 5 mg DAILY [facility] Administration Protocol Aspirin 81 mg 10/28/20 09:00 10/29/20 09:15 Aspirin 81 Mg Tab.Chew PO 81 mg DAILY KRISTIN Administration Atenolol 25 mg 10/27/20 09:00 10/29/20 09:16 Atenolol 25 Mg Tablet PO 25 mg DAILY KRISTIN Administration Protocol Atorvastatin Calcium 80 mg 10/27/20 13:10 10/29/20 09:15 Atorvastatin Calcium 80 Mg Tablet PO 80 mg DAILY KRISTIN Administration Docusate Sodium 100 mg 10/27/20 01:26 Docusate Sodium 100 Mg Capsule PO DAILY PRN Constipation Heparin Sodium (Porcine) 3,600 unit 10/27/20 14:36 10/28/20 23:27 Heparin Sodium,Porcine 5,000 Unit/Ml Vial 40 unit/kg (3600 unit) 3,600 unit IVPUSH Administration BOLUS PRN 40 unit/kg - Heparin Protocol Heparin Sodium (Porcine) 7,200 unit 10/27/20 14:36 Heparin Sodium,Porcine 5,000 Unit/Ml Vial 80 unit/kg (7200 unit) IVPUSH BOLUS PRN 80 unit/kg - Heparin Protocol Heparin Sodium/Sodium Chloride 25,000 unit in 250 mls @ 0 mls/hr 10/27/20 14:45 10/29/20 06:54 IVCONT 7.11 units/kg/hr .Q0M KRISTIN 6.4 mls/hr Titration Protocol Per Protocol Losartan Potassium 100 mg 10/27/20 09:00 10/29/20 09:15 Losartan Potassium 50 Mg Tablet PO 100 mg DAILY KRISTIN Administration Protocol Methylprednisolone Sodium Succinate 40 mg 10/27/20 06:00 10/29/20 05:25 Methylprednisolone Sod Succ 40 Mg/Ml Vial IVPUSH 40 mg Q12H KRISTIN Administration Montelukast Sodium 10 mg 10/27/20 09:00 10/29/20 09:16 Montelukast Sodium 10 Mg Tablet PO 10 mg DAILY KRISTIN Administration Ondansetron HCl 4 mg 10/27/20 01:26 Ondansetron Hcl 4 Mg/2 Ml Vial IVPUSH Q8H PRN Nausea and Vomiting Oxycodone HCl 5 mg 10/27/20 05:01 10/29/20 05:32 Oxycodone Hcl Immed Release 5 Mg Tablet PO 5 mg QID PRN Administration Pain (Scale Score 4-6) Sodium Chloride 3 ml 10/27/20 08:00 10/29/20 09:17 0.9 % Sodium Chloride Flush 3 Ml Syringe IVFLUSH Not Given QSHIFT [facility] Tamsulosin HCl 0.4 mg 10/27/20 21:00 10/28/20 20:23 Tamsulosin Hcl 0.4 Mg Capsule PO 0.4 mg BEDTIME KRISTIN Administration Labs CBC & Chem 7: 10/28/20 07:35 10/28/20 07:34 Microbiology Microbiology Results: Microbiology 10/26/20 18:45 Blood - Venous Blood Culture - Preliminary No growth after 48 hours. 10/26/20 18:23 Blood - Venous Blood Culture - Preliminary No growth after 48 hours. Assessment and Plan (1) NSTEMI (non-ST elevated myocardial infarction): Status: Acute (2) Acute bronchospasm: Status: Acute (3) COPD exacerbation: Status: Acute Assessment and Plan: 80 yoM with severe COPD/asthma overlap syndrome admitted for exacerbation found to have NSTEMI (anterior ST depressions which have resolved, elevated hs-Tn-I) # NSTEMI - no chest pain ,will dc heparin gtt after 48 hrs,seen by cardio they rec. rest perfusion imaging today and stress perfusion imaging once his bronchospasm is completely resolved will Continue low-dose aspirin therapy + statin # acute exacerbation of COPD/asthma overlap syndrome - sob improving continue IV methylprednisolone d# 3, cont, scheduled/prn nebs # lactic acidosis - suspect bronchodilator effect rather than sepsis; improved # question of allergic reaction cont. 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 amlodipine added. # BPH - continue tamsulosin # VTE ppx - on heparin gtt
[2020-10-29 13:24] LABS: PTT Heparin Drip 40.5 SEC (53-77.9)
[2020-10-29] MEDS: Tamsulosin HCL 0.4 MG CAPSULE PO (21:15)
[2020-10-30] VITALS (7 sets, daily range): BP systolic 162–173; BP diastolic 77–81; PULSE 84–100; RESP 12–20; TEMP 36.2–36.7; O2SAT 92–95
[2020-10-30] MEDS: oxyCODONE HCl Immed Release 5 MG TABLET PO (04:45)
[2020-10-30] MEDS: methylPREDNISolone Sod Succ 40 MG/ML VIAL IVPUSH (04:45)
[2020-10-30] MEDS: Losartan Potassium 50 MG TABLET 100 MG PO (08:02)
[2020-10-30] MEDS: Aspirin 81 MG TAB.CHEW PO (08:02)
[2020-10-30] MEDS: amLODIPine Besylate 5 MG TABLET PO (08:02)
[2020-10-30] MEDS: Montelukast Sodium 10 MG TABLET PO (08:02)
[2020-10-30] MEDS: Atorvastatin Calcium 80 MG TABLET PO (08:02)
[2020-10-30] MEDS: atenoloL 25 MG TABLET PO (08:03)
[2020-10-30] MEDS: Albuterol/Iprat 2.5/0.5MG 3 ML AMPUL.NEB INHALE ×2 (08:04→12:54)
[2020-10-30] MEDS: 0.9 % Sodium Chloride Flush 3 ML SYRINGE IVFLUSH (08:07)
[2020-10-30] MEDS: Acetaminophen 325 MG TABLET 650 MG PO (08:07)
--- NOTE | 2020-10-30 09:05 | P.PNCA_ITS ---
Subjective Subjective Date of Service: 10/30/20 Principal diagnosis: SOB, Abn EKG, ACS Interval history: Patient denies any chest discomfort. Says his shortness of b reath is improved. However still requiring nebulizer treatment. 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 he is not aware of this finding in the past. Review of Systems Constitutional: Reports no additional constitutional complaints Cardiovascular: Denies chest pain, Denies lightheadedness, Denies palpitations and Reports dyspnea on exertion Respiratory: Reports dyspnea on exertion and Reports wheezing Gastrointestinal: Reports no additional gastrointestinal complaints Genitourinary: Reports no additional male genitourinary complaints Reports system reviewed and no additional complaints, except as documented Psychiatric: Reports no additional psychiatric complaints Endocrine: Reports no additional endocrine complaints and Denies palpitations Hematologic/Lymphatic: Reports no additional hematologic/lymphatic complaints Allergic/Immunologic: Reports wheezing Physical Exam Vital Signs: Last Vital Signs Temp 98.0 F 10/30/20 07:47 Pulse 100 10/30/20 08:04 Resp 18 10/30/20 07:47 BP 166/81 H 10/30/20 08:03 Pulse Ox 93 10/30/20 07:47 Body Mass Index 36.3 Const General: cooperative, comfortable, no acute distress, alert and awake Nutritional Appearance: obese Orientation/consciousness: patient oriented x3 Limitations: no limitations Neck Neck: Yes trachea midline, Yes supple and Yes no JVD Resp Effort & Inspection: normal respiratory effort Auscultation: wheezes (Has improved) and diminished lung sounds Cardio Jugular venous distension: no JVD Rate: regular rate Rhythm: regular rhythm Heart sounds: S1 normal heart sound present and S2 normal heart sound present GI Inspection: Yes obesity Auscultation: normal bowel sounds Skin General skin exam: no rashes or lesions noted Neuro General: patient oriented x3 and no focal motor deficits Extrem General: Yes no clubbing, cyanosis or edema Psych Appearance: grossly normal Results Labs and Meds Result diagrams: 10/28/20 07:35 10/28/20 07:34 Lab results: Laboratory Results - last 24 hr 10/29/20 12:55 PTT (Heparin Protocol) 40.5 L D Progress Note: A&P Assessment and plan (1) NSTEMI (non-ST elevated myocardial infarction): Status: Acute Assessment and Plan: Patient with acute coronary syndrome NSTEMI with significant anterior ST depression and echocardiogram showing 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 Given his age and multiple risk factors and family history, highly suspicious for severe triple-vessel disease or left main disease. In this setting, performing a noninvasive stress test could be more d angers. This was discussed with him. Recommend him to undergo cardiac catheterization. He has COPD exacerbation has improved although persistent wheezing but he can lay flat on the table. Discussed with him the risks, benefits, alternatives 2nd appeared to procedure. Her based on the anatomy fu rther treatment could be directed. He would be high risk surgical candidate given his underlying severe COPD. Treatment would be either medical or possibly percutaneous intervention if possible. This was discussed with him in details. He is agreeable. Continue aspirin. Agree with increasing amlodipine to 10 mg daily. Continue losartan and atenolol. Will follow as outpatient. Thank you for allowing me to partake in his care Fall Risk Details Current Medications: Current Medications Generic Name Dose Route Start Last Admin Trade Name Freq PRN Reason Stop Dose Admin Acetaminophen 650 mg 10/27/20 01:26 10/30/20 08:07 Acetaminophen 325 Mg Tablet PO 650 mg Q6H PRN Administration Pain, Mild (Pain Scale 1-3) Albuterol/Ipratropium 3 ml 10/27/20 08:00 10/30/20 08:04 Albuterol/Iprat 2.5/0.5mg 3 Ml Ampul.Neb INHALE 3 ml RQ4H WHILE AWAKE KRISTIN Administration Albuterol/Ipratropium 3 ml 10/27/20 01:26 10/29/20 04:34 Albuterol/Iprat 2.5/0.5mg 3 Ml Ampul.Neb INHALE 3 ml RQ4H PRN Administration Shortness of Breath/Wheezing Amlodipine Besylate 5 mg 10/28/20 13:00 10/30/20 08:02 Amlodipine Besylate 5 Mg Tablet PO 5 mg DAILY KRISTIN Administration Protocol Aspirin 81 mg 10/28/20 09:00 10/30/20 08:02 Aspirin 81 Mg Tab.Chew PO 81 mg DAILY KRISTIN Administration Atenolol 25 mg 10/27/20 09:00 10/30/20 08:03 Atenolol 25 Mg Tablet PO 25 mg DAILY KRISTIN Administration Protocol Atorvastatin Calcium 80 mg 10/27/20 13:10 10/30/20 08:02 Atorvastatin Calcium 80 Mg Tablet PO 80 mg DAILY KRISTIN Administration Docusate Sodium 100 mg 10/27/20 01:26 Docusate Sodium 100 Mg Capsule PO DAILY PRN Constipation Enoxaparin Sodium 40 mg 10/30/20 08:45 Enoxaparin Sodium 40 Mg/0.4 Ml Syringe SUBCUT Q24H KRISTIN Losartan Potassium 100 mg 10/27/20 09:00 10/30/20 08:02 Losartan Potassium 50 Mg Tablet PO 100 mg DAILY KRISTIN Administration Protocol Methylprednisolone Sodium Succinate 40 mg 10/27/20 06:00 10/30/20 04:45 Methylprednisolone Sod Succ 40 Mg/Ml Vial IVPUSH 40 mg Q12H KRISTIN Administration Montelukast Sodium 10 mg 10/27/20 09:00 10/30/20 08:02 Montelukast Sodium 10 Mg Tablet PO 10 mg DAILY KRISTIN Administration Ondansetron HCl 4 mg 10/27/20 01:26 Ondansetron Hcl 4 Mg/2 Ml Vial IVPUSH Q8H PRN Nausea and Vomiting Oxycodone HCl 5 mg 10/27/20 05:01 10/30/20 04:45 Oxycodone Hcl Immed Release 5 Mg Tablet PO 5 mg QID PRN Administration Pain (Scale Score 4-6) Sodium Chloride 3 ml 10/27/20 08:00 10/30/20 08:07 0.9 % Sodium Chloride Flush 3 Ml Syringe IVFLUSH 3 ml QSHIFT KRISTIN Administration Tamsulosin HCl 0.4 mg 10/27/20 21:00 10/29/20 21:15 Tamsulosin Hcl 0.4 Mg Capsule PO 0.4 mg BEDTIME KRISTIN Administration Time Spent With Patient Time: Total time spent is greater than 50% in coordination of care (as documented) at patient's floor/unit and/or counseling patient: Time with patient: 25 - 35 minutes Procedures Date of Service Date of Service: 10/30/20
[2020-10-30] MEDS: Enoxaparin Sodium 40 MG/0.4 ML SYRINGE SUBCUT (09:23)
[2020-10-30 10:07] LABS: C Reactive Protein 0.19 mg/dL (< or = 0.50)
[2020-10-30 10:55] LABS: Erythrocyte Sedimentation Rate 5 MM/HR (0-15)
--- NOTE | 2020-10-30 12:01 | PM.DS ---
DS: Providers Provider Date of Service: 10/30/20 Date of admission: 10/27/20 01:22 Primary care physician: Marvin Carey MD Consults: 10/27/20 13:10 Consult to Cardiology Routine Consulting Provider: Jamie Wilson Reason for consultation: delta hsTn-I >50% and EKG shows anterior ST depressions DS: Diagnosis Discharge Diagnosis (1) NSTEMI (non-ST elevated myocardial infarction): Status: Acute DS: Medications Discharge Medications Home Medications: Home Medications Medication Instructions Recorded Confirmed Trelegy Ellipta 1 inh INHALATION BEDTIME 06/19/20 10/27/20 albuterol sulfate [ProAir HFA] 2 puff INHALATION QID PRN 06/19/20 10/27/20 atenolol 25 mg PO DAILY 06/19/20 10/27/20 losartan 100 mg PO DAILY 06/19/20 10/27/20 oxycodone-acetaminophen 1 tab PO QID PRN 06/19/20 10/27/20 tamsulosin 0.4 mg PO BEDTIME 06/19/20 10/27/20 Previous Rx's Medication Instructions Recorded montelukast 10 mg tablet 10 mg PO DAILY 30 Days #30 tab 06/26/20 amlodipine [Norvasc] 10 mg PO DAILY #30 tab 10/30/20 enoxaparin 40 mg SUBCUT Q24H #2 ml 10/30/20 levalbuterol HCl [Xopenex] 1.25 mg INHALATION Q4H #3 ml 10/30/20 methylprednisolone sod suc(PF) 40 mg IVPUSH Q12H #1 ea 10/30/20 [Solu-Medrol (PF)] DS: Summary Hospital Course Hospital Course: History of presenting illness Chief Complaint: SOB This is an 80-year-old male with past medical history of COPD, BPH, HTN, presents to hospital with complaints of shortness of breath. Patient reports that he has been shortness of breath for the past few weeks that worsened the past few days. He also is complaining of coughing episodes, phlegm production, chills no fever, left mid axillary pain that feels like pins and needles that worsened with inspiration. Left-sided abdominal pain that is 2/10, diarrhea that started today, 2 episode,, denies any headache, change in vision, no chest pain, no palpitations, no nausea or vomiting, no urinary symptom Plan lower extremity edema It was noted that on arrival to the ED patient had significant hives and was itching all over. Patient reports that he does not know what he is allergic to, and he did realize he had an allergic reaction to something Patient hemodynamically stable with vitals significant for temp of 97.9?, heart rate of 102, respiratory 22, blood pressure of 129/93, satting 91% on room air, Labs are significant for WBC count of 13.6, lactic acid of 2.1, labs otherwise unremarkable, Chest x-ray shows the bronchial bethea are diffusely thickened correlated with history of asthma or bronchitis, no evidence of consolidation/pneumonia PMHx BPH (benign prostatic hyperplasia) COPD (chronic obstructive pulmonary disease) HTN (hypertension) Pneumonia Pneumonitis Pulmonary nodules Hospital course 80 yoM with severe COPD/asthma overlap syndrome admitted for exacerbation found to have NSTEMI (anterior ST depressions which have resolved, elevated hs-Tn-I) patient treated with IV heparin times 48 hours, placed on Norvasc and continued on low-dose atenolol, statins and aspirin an echocardiogram revealed 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 Mccord from Cardiology. Recommend cardiac catheterization in this setting, performing a noninvasive stress test could be more dangerous therefore patient is being discharged to [facility], COPD exacerbation is improving, present he has no shortness of breath or chest pain he is being discharged on low-dose IV steroids and Xopenex updraft scheduled. Patient noted to have lactic acidosis suspect bronchodilator effect rather than sepsis For uncontrolled HTN, amlodipine has been added dose increased to 10 mg today continue atenolol and losartan and follow BP closely BPH continue tamsulosin Chronic headache check ESR and CRP both within normal range less likely related to temporal arteritis, continue pain medications as needed and aim for better blood pressure control. Time Spent with Patient Time attestation: Total time spent providing and/or coordinating discharge services: Discharge coordination time: Greater than 30 minutes Quality: Stroke Does the patient have a stroke diagnosis?: No Physical Exam Vital Signs: Vital Signs: Last Vital Signs Temp 97.1 F 10/30/20 11:50 Pulse 100 10/30/20 11:50 Resp 20 10/30/20 11:50 BP 162/77 H 10/30/20 11:50 Pulse Ox 93 10/30/20 11:50 Body Mass Index 36.3 General no acute distress. Neck supple, no JVD. CVS regular rate rhythm, Respiratory lungs coarse breath sounds, no respiratory distress, occasional wheeze,no rales. Gastrointestinal abdomen soft, nontender, bowel sounds audible, no guarding , no rigidity. Extremities no edema. Neuro nonfocal , speech clear. Skin no rash DS: Data Data Completed and Pending Labs on day of discharge: Laboratory Results - last 24 hr 10/29/20 10/30/20 10/30/20 12:55 08:53 08:53 ESR 5 PTT (Heparin Protocol) 40.5 L D C-Reactive Protein 0.19 Preliminary micro results at discharge 10/26/20 18:45 Blood Culture - Preliminary Blood - Venous No growth after 48 hours. 10/26/20 18:23 Blood Culture - Preliminary Blood - Venous No growth after 48 hours. Discharge Plan Discharge Patient Disposition: [facility] Discharge Diagnosis: Non ST-elevation [place] COPD exacerbation Uncontrolled hypertension Lactic acidosis due to bronchodilator effect Referrals: Marvin Carey MD [Primary Care Provider] - 1 Week Discharge Medications: New Solu-Medrol (PF) 40 mg/mL Recon Soln 40 mg IVPUSH Q12H Qty: 1 RF: 0 levalbuterol HCl [Xopenex] 1.25 mg/3 mL solution for nebulization 1.25 mg inhalation Q4H Qty: 3 RF: 0 enoxaparin 40 mg/0.4 mL Syringe 40 mg subcut Q24H Qty: 2 RF: 0 amlodipine [Norvasc] 10 mg tablet 10 mg PO DAILY Qty: 30 RF: 0 Continued oxycodone-acetaminophen 5-325 mg tablet 1 tab PO QID PRN (Reason: Pain (Scale Score 4-6)) RF: 0 atenolol 25 mg Tablet 25 mg PO DAILY RF: 0 tamsulosin 0.4 mg Capsule 0.4 mg PO BEDTIME RF: 0 losartan 100 mg Tablet 100 mg PO DAILY RF: 0 Trelegy Ellipta 100-62.5-25 mcg Blister With Device 1 inh INHALATION BEDTIME RF: 0 albuterol sulfate [ProAir HFA] 90 mcg/actuation Hfa Aerosol Inhaler 2 puff INHALATION QID PRN (Reason: Shortness Of Breath) RF: 0 montelukast 10 mg tablet 10 mg PO DAILY 30 Days Qty: 30 RF: 11 Discontinued fluticasone propionate 50 mcg/actuation [place],Suspension 1 spray INTRANASAL DAILY RF: 0 Discharge Orders: Discharge Order (Routine); Ordered 10/30/20 Ordered By: Mary Ceron Diet: low fat, low cholesterol Activity on Discharge: bedrest Stand Alone Forms: Patient Portal Discharge page Care Plan Goals: Being transferred to [facility] for cardiac catheterization due to EKG changes anterior leads and echocardiogram suggestive of inferior wall [place] [facility] Concerns: You have COPD exacerbation that is improving, continue low-dose IV steroids, updraft , Singulair, continue Norvasc, Lipitor and aspirin, noted to have elevated blood pressure therefore dose of Norvasc increased to 10 mg Plan of Treatment: Outpatient follow-up with primary care physician and Cardiology. Assessment: As above
[2020-11-14 15:21] LABS: ~Lactic Acid-LAB USE ONLY 2.7 mmol/L (0.5-2.0)
== END 2020-10-30 13:45 | disposition short-term general hospital (02) | DRG 202 ==
LOC: HO.ED 10-27 00:13 → HO.EDOVER 10-27 02:03 → HO.S3 10-27 02:38 → HO.IMC 10-27 16:06
PROVIDERS: Family Medicine; Admitting Provider Internal Medicine; Emergency Provider Emergency Medicine; PCP Internal Medicine; Visit Provider Hospitalist
DX: J98.01 Acute bronchospasm (principal); I21.4 Non-ST elevation (NSTEMI) myocardial infarction; E87.2 Acidosis; J41.1 Mucopurulent chronic bronchitis; N40.0 Benign prostatic hyperplasia without lower urinary tract symptoms; I10 Essential (primary) hypertension; Z20.822 Contact with and (suspected) exposure to COVID-19; Z87.891 Personal history of nicotine dependence; Z88.6 Allergy status to analgesic agent; Z79.891 Long term (current) use of opiate analgesic; Z79.899 Other long term (current) drug therapy
CPT/HCPCS: 0241U; 36415; 71045; 71250; 80048; 80076; 83605; 83880; 84484; 85025; 85027; 85610; 85652; 85730; 86140; 87040; 93005; 93306; 94640; 94644; 96365; 96366; 96367; 99285; J1200; J1650; J2543; J2920; J2930; J3475

== ENCOUNTER → 2020-11-19 13:51 | Outpatient (BNVA) | payer MEDICARE, OTHER, SELFPAY | PROVIDERS: PCP Internal Medicine; Visit Provider Nurse Practitioner Family | DX: I21.4 Non-ST elevation (NSTEMI) myocardial infarction (principal); I21.19 ST elevation (STEMI) myocardial infarction involving other coronary artery of inferior wall; I10 Essential (primary) hypertension; J41.1 Mucopurulent chronic bronchitis; Z98.890 Other specified postprocedural states | CPT/HCPCS: 99212 ==

== ENCOUNTER 2020-11-30 12:03 | Outpatient (REF) | payer MEDICARE, OTHER, SELFPAY ==
--- NOTE | ~2020-11-30 | XR_ITS ---
EXAMINATION: XR CHEST CLINICAL INFORMATION: Shortness of breath. R06.02 COMPARISON: Chest radiographs 10/26/2020, 06/19/2020, 06/14/2020 TECHNIQUE: 2 views of the chest were obtained. FINDINGS: The lungs are clear. There is no hyperinflation, airspace consolidation, vascular congestion, or effusion. The costophrenic sulci are well-defined. The heart is normal in size. The vascularity is normal. There is no pneumothorax or pleural reaction. The hilar and mediastinal contours are unremarkable. No visible acute bony abnormality. XR/XR chest 2V IMPRESSION: Unremarkable examination.
== END 2020-11-30 12:04 | disposition home or self-care (01) ==
LOC: HO.HMGCX 12:03
PROVIDERS: PCP Internal Medicine; Visit Provider Internal Medicine
DX: R06.02 Shortness of breath (principal)
CPT/HCPCS: 71046

== ENCOUNTER → 2020-12-12 10:16 | Outpatient (BNVA) | payer MEDICARE, OTHER, SELFPAY | PROVIDERS: PCP Internal Medicine; Visit Provider Hospitalist | DX: R91.8 Other nonspecific abnormal finding of lung field (principal); J41.1 Mucopurulent chronic bronchitis; J18.9 Pneumonia, unspecified organism | CPT/HCPCS: 99212 ==

== ENCOUNTER → 2021-02-04 12:24 | Outpatient (BNVA) | payer MEDICARE, OTHER, SELFPAY | PROVIDERS: PCP Internal Medicine; Visit Provider Internal Medicine Cardiovascular Disease | DX: J41.1 Mucopurulent chronic bronchitis (principal); I20.8 Other forms of angina pectoris; R60.9 Edema, unspecified; R42 Dizziness and giddiness; Z87.891 Personal history of nicotine dependence; Z98.890 Other specified postprocedural states | CPT/HCPCS: 99212 ==

== ENCOUNTER 2021-02-06 18:36 | Outpatient (REF) | payer MEDICARE, OTHER, SELFPAY ==
--- NOTE | ~2021-02-06 | MR_ITS ---
MRI OF THE BRAIN WITHOUT IV CONTRAST INDICATION: Dizziness and giddiness. COMPARISON: None available. TECHNIQUE: Multiplanar multisequence MR imaging of the brain was obtained without IV contrast. FINDINGS: There is no hydrocephalus, extra-axial surface collection, or herniation. 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 The major flow voids at the skull base are preserved. There is no acute infarct on diffusion-weighted imaging. There is no intracranial hemorrhage on the gradient recalled echo acquisition. There are multiple foci of susceptibility signal within the periphery of the cerebral hemispheres and within the left thalamus that may reflect the sequela of amyloid angiopathy and/or chronic hypertensive microhemorrhages. The midline structures are normal. The cerebellar tonsils are normally positioned. The cerebellum and brainstem are normal. The craniocervical junction is normal. Osseous marrow signal intensity is homogenous. The visualized soft tissues are unremarkable. MR/MR head/brain wo con IMPRESSION: - No acute intracranial findings. 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 - There are multiple foci of susceptibility signal within the periphery of the cerebral hemispheres and within the left thalamus that may reflect the sequela of amyloid angiopathy and/or chronic hypertensive microhemorrhages.
== END 2021-02-06 18:37 | disposition home or self-care (01) ==
LOC: HO.MRI 18:36
PROVIDERS: PCP Internal Medicine; Visit Provider Internal Medicine Cardiovascular Disease
DX: R42 Dizziness and giddiness (principal)
CPT/HCPCS: 70551

== ENCOUNTER → 2021-02-12 10:36 | Outpatient (BNVA) | payer MEDICARE, OTHER, SELFPAY | PROVIDERS: PCP Internal Medicine; Visit Provider Hospitalist | DX: R91.8 Other nonspecific abnormal finding of lung field (principal); J41.1 Mucopurulent chronic bronchitis; J18.9 Pneumonia, unspecified organism | CPT/HCPCS: 99212 ==

== ENCOUNTER 2021-02-22 10:24 | Emergency (ER) | payer MEDICARE, OTHER, SELFPAY ==
--- NOTE | ~2021-02-22 | CT_ITS ---
EXAMINATION: CT CERVICAL SPINE WITHOUT CONTRAST CLINICAL INFORMATION: Fall, trauma, pain COMPARISON: Outside CT cervical spine 01/08/2021 ([facility]), CT head 02/22/2021, CT chest 02/22/2021 TECHNIQUE: Multidetector volumetric CT imaging of the cervical spine is performed without contrast in the axial plane. Additional 2D reformatted coronal and sagittal images are generated on the CT workstation and uploaded to PACS. This CT examination was performed using dose optimization techniques as appropriate, variously including the following: *Automated exposure control *Adjustment of mA and/or kV according to patient size (this includes techniques or standardized protocols for targeted exams where dose is matched to indication/reason for exam; i.e. extremities or head) *Use of iterative reconstruction technique DLP: 496 mGy-cm FINDINGS: There are chronic postoperative changes similar to recent outside imaging with bilateral rodding and pedicle screws C6-T1 and right lamina plate and screws at C3-C5. There has been prior laminectomy. The hardware appears intact. The craniocervical junction appears normal. The odontoid appears intact. There is no visible fracture or interval vertebral compression or perched facet. No paraspinal soft tissue swelling. There is a reversal of the cervical lordosis lower cervical spine similar to prior outside exam. Again, there are multilevel degenerative disc changes and vertebral spurring. Lung apices show no pneumothorax. There is some lobulated density at posterior trachea likely mucus or partial volume averaging with esophagus, not visible on CT chest. Chest CT described in separate report. CT/CT cervical spine wo con IMPRESSION: 1. Postsurgical changes upper and lower cervical spine. Hardware intact. 2. No acute bony abnormality. No paraspinal soft tissue swelling.
--- NOTE | ~2021-02-22 | CT_ITS ---
EXAMINATION: CT CHEST, ABDOMEN AND PELVIS WITHOUT CONTRAST CLINICAL INFORMATION: Fall. Evaluate for rib fractures. Rib pain.. COMPARISON: Chest 11/30/2020 TECHNIQUE: 5mm thin axial and reformatted 3 mm thin sagittal and coronal images of chest, abdomen pelvis were obtained. DLP 1238 FINDINGS: Chest: The lungs are well-expanded and clear of acute pneumonic process or contusion. There is a 4 mm nodule axial image 313/11. No additional lung nodules visualized. Mild atelectatic changes are seen in both lung bases. The right thyroid lobe is slightly enlarged with mild deviation of trachea to the left. No focal lesion seen. The central trachea and bronchial airways patent. No abnormal size mediastinal mass or lymph node seen. The aorta is normal caliber. Moderate coronary artery calcification seen. No pericardial effusion. The heart size is normal. There is a small hiatal hernia. There is no pleural effusion, thickening or calcification. Axilla: No abnormal size mediastinal or hilar lymph nodes seen. There is no visible fracture, lytic or sclerotic process seen. There is no visible spine fracture. Abdomen and pelvis: The liver is homogeneous in density and normal size. There are several hypodense small left lobe liver lesions, stable. There are likely small cysts. The gallbladder has been surgically removed Spleen, pancreas and bilateral adrenal glands are unremarkable. Both kidneys are normal size, shape and position. There are bilateral hypodense liver lesions. Some of the lesions have calcification and likely complex Bosniak type II cyst. There are lesions are likely simple cysts. No radiopaque renal calculi or hydronephrosis seen. Abdominal aorta is nondilated with mild arthroscopic calcification. Small shotty lymph nodes in the retroperitoneum, none are significant. There is scattered stool, diverticula and gas seen throughout the colon without distention. The small bowel loops are normal caliber. Appendix is not visualized. Imaging through the pelvis reveals nondistended urinary bladder with intraluminal gas likely echogenic the previous catheter insertion. The prostate gland is normal. No free fluid. No abnormal pelvic lymph nodes. No inguinal hernia. Bone windows reveal grade 1 anterolisthesis L5 over S1 antegrade 1 retrolisthesis L2 L2 over L3.. There are degenerative disc changes and vacuum disc phenomena throughout entire lumbar spine. There is bilateral L3 the and L5 pedicle screws and interconnecting onur for correction of L5-S1 anterolisthesis. CT/CT abdomen pelvis wo con IMPRESSION: No acute process seen in the chest, abdomen pelvis. Likely left hepatic and bilateral renal cysts. 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 There are no fractures involving a bony thorax, the ribs or the lumbosacral spine. There are degenerative disc changes throughout lumbar spine with grade 1 anterolisthesis L5 over S1 and grade 1 retrolisthesis L2 over L3.
--- NOTE | ~2021-02-22 | XR_ITS ---
EXAMINATION: XR LEFT FOREARM AND LEFT HAND. CLINICAL INFORMATION: Injury left hand and left forearm COMPARISON: None TECHNIQUE: 3 views left wrist and 3 views left forearm FINDINGS: Left ankle there is lateral subluxation fifth MCP joint but no visible fracture seen. There is flexion deformity of the PIP and DIP joint. Rest of the digits are unremarkable with no visible fracture seen. There is mild degenerative changes involving PIP and DIP joints. Also visualized is diffuse osteopenia. There is a small avulsion fracture seen distal ulnar styloid process likely an old avulsion injury Left forearm: There is no visible acute fracture or dislocation involving the left radius and ulna. There is diffuse osteopenia. The soft tissues are normal. No abnormal joint effusion seen. There is a moderate size olecranon process enthesophyte. XR/XR hand wrist LT IMPRESSION: There is a small avulsion fracture at the tip of ulnar styloid process likely old avulsion injury. There is no acute fracture or dislocation left hand, left wrist or left forearm. There is diffuse osteopenia. There are degenerative changes PIP and DIP joints and first carpometacarpal joint.
--- NOTE | ~2021-02-22 | XR_ITS ---
EXAMINATION: XR LEFT FOREARM AND LEFT HAND. CLINICAL INFORMATION: Injury left hand and left forearm COMPARISON: None TECHNIQUE: 3 views left wrist and 3 views left forearm FINDINGS: Left ankle there is lateral subluxation fifth MCP joint but no visible fracture seen. There is flexion deformity of the PIP and DIP joint. Rest of the digits are unremarkable with no visible fracture seen. There is mild degenerative changes involving PIP and DIP joints. Also visualized is diffuse osteopenia. There is a small avulsion fracture seen distal ulnar styloid process likely an old avulsion injury Left forearm: There is no visible acute fracture or dislocation involving the left radius and ulna. There is diffuse osteopenia. The soft tissues are normal. No abnormal joint effusion seen. There is a moderate size olecranon process enthesophyte. XR/XR forearm LT 2V IMPRESSION: There is a small avulsion fracture at the tip of ulnar styloid process likely old avulsion injury. There is no acute fracture or dislocation left hand, left wrist or left forearm. There is diffuse osteopenia. There are degenerative changes PIP and DIP joints and first carpometacarpal joint.
--- NOTE | ~2021-02-22 | CT_ITS ---
EXAMINATION: CT HEAD WITHOUT CONTRAST CLINICAL INFORMATION: Fall, trauma, pain COMPARISON: MR brain 02/06/2021 TECHNIQUE: Contiguous axial imaging was performed from the skull base to vertex without intravenous administration of contrast. Additional 2-D coronal and sagittal reformatted images are generated on the CT workstation and uploaded to PACS. This CT examination was performed using dose optimization techniques as appropriate, variously including the following: *Automated exposure control *Adjustment of mA and/or kV according to patient size (this includes techniques or standardized protocols for targeted exams where dose is matched to indication/reason for exam; i.e. extremities or head) *Use of iterative reconstruction technique DLP: 703 mGy-cm FINDINGS: There is no intracranial hemorrhage, hematoma, or extra-axial fluid collection. There is no mass effect or edema or midline shift. There are atrophic changes with accentuated cortical sulci and fissures and cisterns. Chronic prominent periventricular white matter gliosis is present, similar to prior study. 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 There is no visible acute territorial infarct or mass lesion. The calvarium appears intact. There is no pneumocephalus or orbital emphysema. The visualized sinuses and middle ears and mastoid air cells show no significant mucosal thickening. There are no air-fluid levels. CT/CT head/brain wo con IMPRESSION: 1. No acute intracranial abnormality. 2. 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
[2021-02-22 10:32] VITALS: BP 116/69; BP 116/84; PULSE 72; PULSE 74; RESP 20; TEMP 36.9; O2SAT 95; O2SAT 96; BMI 36.9
--- NOTE | 2021-02-22 10:55 | ED_ITS ---
HPI - Fall General Chief Complaint: Fall Stated Complaint: fall Time Seen by Provider: 02/22/21 10:39 Source: patient Mode of arrival: ambulatory Limitations: no limitations History of Present Illness HPI Narrative: Patient presents to the ED for fall. Patient states lost his footing tripped down 3 stairs and fell unto his left chest on a chair and it broke. He also tried to bring forward his left forearm and now has skin tear on left forearm. Patient denies hitting head or loss of consciousness. patient main complaint is left rib pain Related Data Home Medications Medication Instructions Recorded Confirmed albuterol sulfate 90 mcg/actuation 2 puff INHALATION QID PRN 06/19/20 02/04/21 aerosol inhaler (ProAir HFA) atenolol 25 mg tablet 25 mg PO DAILY 06/19/20 02/04/21 tamsulosin 0.4 mg capsule 0.4 mg PO BEDTIME 06/19/20 02/04/21 Lactobacillus acidophilus 1 2,000 mmu cells PO BID 11/19/20 02/04/21 billion cell capsule aspirin 81 mg tablet,delayed 81 mg PO DAILY 11/19/20 02/04/21 release fexofenadine 180 mg tablet 180 mg PO DAILY 11/19/20 02/04/21 gabapentin 100 mg capsule 100 mg PO TID 11/19/20 02/04/21 isosorbide mononitrate 10 mg tablet 10 mg PO BID 11/19/20 02/04/21 losartan 50 mg tablet 50 mg PO DAILY 11/19/20 02/04/21 montelukast 5 mg chewable tablet 10 mg PO DAILY 11/19/20 02/04/21 multivitamin 1 tab PO DAILY 11/19/20 02/04/21 pantoprazole 20 mg tablet,delayed 20 mg PO DAILY 11/19/20 02/04/21 release (Protonix) sennosides 8.6 mg tablet (senna) 8.6 mg PO BID 11/19/20 02/04/21 acetaminophen 325 mg tablet 650 mg PO Q6H PRN 12/12/20 02/04/21 (Tylenol) fluticasone fur. 200 mcg-umeclid 1 inh INHALATION DAILY 12/12/20 02/04/21 62.5 mcg-vilant 25 mcg inhalat.powder (Trelegy Ellipta) fluticasone propionate 50 1 spray INTRANASAL DAILY 02/12/21 mcg/actuation nasal spray,suspension oxycodone-acetaminophen 5 mg-325 1 tab PO QID PRN 02/12/21 mg tablet Previous Rx's Medication Instructions Recorded montelukast 10 mg tablet 10 mg PO DAILY 30 Days #30 tab 06/26/20 amlodipine 10 mg tablet (Norvasc) 10 mg PO DAILY #30 tab 10/30/20 azithromycin 250 mg tablet 250 mg PO 3XW 28 Days #12 tab 12/12/20 albuterol sulfate 2.5 mg INHALATION DAILY 30 Days 12/13/20 #90 ml furosemide 20 mg tablet 20 mg PO DAILY 90 Days #90 tab 02/14/21 Allergies Allergy/AdvReac Type Severity Reaction Status Date / Time ibuprofen Allergy Mild Gastrointestinal Verified 02/14/21 14:09 Upset Review of Systems Review of Systems: Yes all other systems are reviewed and are negative Constitutional: Constitutional: Reports as per HPI and Reports no additional constitutional complaints Eyes: Eyes: Reports as per HPI and Reports no additional eye complaints ENT: Reports system reviewed and no additional complaints, except as documented and Reports as per HPI Cardiovascular: Cardiovascular: Reports as per HPI, Reports no additional cardiovascular complaints and Reports chest pain (Due to trauma) Respiratory: Respiratory: Reports as per HPI and Reports no additional respiratory complaints Gastrointestinal: Gastrointestinal: Reports as per HPI and Reports no additional gastrointestinal complaints Genitourinary: Genitourinary: Reports no additional male genitourinary complaints and Reports as per HPI Musculoskeletal: Musculoskeletal: Reports no additional musculoskeletal complaints and Reports as per HPI Comments: Left forearm skin tears Neurologic: Reports system reviewed and no additional complaints, except as documented and Reports as per HPI Psychiatric: Psychiatric: Reports no additional psychiatric complaints and Reports as per HPI [facility]LY [facility] Past Medical History Medical History (Updated 02/22/21 @ 16:45 by ANIL Rollins) BPH (benign prostatic hyperplasia) COPD (chronic obstructive pulmonary disease) HTN (hypertension) Inferior [place] Pneumonia Pneumonitis Pulmonary nodules Surgical History Hx of cardiac cath Social History Social History Household Members: Spouse Housing: House Do you presently have visiting nurse or other home services: No Alcohol intake: never Patient Tobacco Use Status: Former Tobacco user Tobacco use type: Cigarette Use of substances other than those prescribed or required for medical reasons: No Advance Directives: Yes Advance Directives on File: Yes Advance Directives Date on File: 06/25/20 service: No Current occupational status: retired Physical Exam Vital Signs: Vital Signs: Last Vital Signs Temp 97.2 F 02/22/21 16:00 Pulse 75 02/22/21 16:00 Resp 16 02/22/21 16:00 BP 134/71 02/22/21 16:00 Pulse Ox 95 02/22/21 16:00 Body Mass Index 36.9 Const: General: cooperative, healthy appearing, comfortable, no acute distress, well developed, alert, awake and Physically active Orientation/consciousness: patient oriented x3 HENMT: Head: Yes normal to inspection, Yes No palpable skull fracture present, Yes normocephalic, Yes atraumatic and No abrasion Eyes: General: appearance normal, both eyes and all related structures Neck: Neck: Yes normal visual inspection, Yes full ROM, Yes no lymphadenopathy, Yes no meningeal signs, Yes trachea midline, Yes supple and No tender Chest: Chest palpation & inspection: normal inspection of the chest Chest/axillae images: 1. Tenderness on palpation and movement of left upper extremity. Negative for any ecchymosis. Resp: Effort & Inspection: normal respiratory effort and able to speak in complete sentences Auscultation: clear to auscultation bilaterally Cardio: Jugular venous distension: no JVD Heart sounds: S1 normal heart sound present and S2 normal heart sound present GI: Inspection: Yes normal to inspection and No abdominal wall ecchymosis Palpation (GI): Soft to palpation, not firm, nontender, no guarding and not rigid : General: No CVA tenderness and Yes no CVA tenderness Back/Spine/Pelvis: Back: no CVA tenderness, No CVA tenderness and No back tenderness Skin: Other: Left forearm skin tear. Left hand abrasions General skin exam: no rashes or lesions noted and elasticity normal Neuro: General: patient oriented x3, gait normal, no meningeal signs and CN's II-XI intact bilaterally Cranial nerves: Yes CN's II-XII intact bilaterally Extrem: Other: Left hip pain General: Yes normal to inspection and Yes full ROM Elbow/forearm/wrist images: 1. skin tear. negative for deformity. positive for ecchymosis. motor, neuro, and vascular exam is intact. Hand/finger images: 1. Abrasions. motor, neuro, and vascular exam is intact Psych: Appearance: grossly normal, well kempt and not disheveled Course Course Course Narrative: Fall. Was sent for images. Patient denies having any Coumadin or any other blood thinners besides aspirin. Reevaluation(s) Reevaluation #1: Patient's EKG negative for any new changes. Two troponins negative. Labs are at baseline. All images came back negative for any fracture. Left upper extremity shows skin tears which was cleaned and dressed. Patient pain relief improved with oxycodone. Patient ready as oxycodone prescription at home. Patient is safe for discharge. History physical exam indicate mechanical fall. Patient given t-dap Time: 16:39 MDM - Fall MDM Narrative Medical decision making narrative: Mechanical fall. Skin tear. Lab Data Result diagrams: 02/22/21 13:00 02/22/21 13:00 Labs: Lab Results 02/22/21 02/22/21 02/22/21 Range/Units 13:00 13:00 13:00 WBC 9.0 (4.8-10.8) X10*3/uL RBC 4.15 L (4.60-5.80) X10*6/uL Hgb 12.6 L (14.0-18.0) g/dl Hct 38.3 L (42-52) % MCV 92.3 (80-98) fL MCH 30.4 (27.0-33.0) pg MCHC 32.9 (31.0-36.0) g/dl RDW 11.9 (11.0-16.0) % Plt Count 232 (160-400) X10*3/uL MPV 9.1 L (9.4-12.4) fL Immature Gran % (Auto) 0.3 (0.0-0.4) % Neut % (Auto) 70.7 (45-73) % Lymph % (Auto) 13.8 L (20-40) % Dixon % (Auto) 12.2 H (2-11) % Eos % (Auto) 2.0 (0-4) % Baso % (Auto) 1.0 (0-2) % Lymph # (Auto) 1.2 (1.2-4.9) X10*3/uL Dixon # (Auto) 1.1 (0.1-1.2) X10*3/uL Eos # (Auto) 0.2 (0.0-0.4) X10*3/uL Baso # (Auto) 0.1 (0.0-0.2) X10*3/uL Abs Immat Gran (auto) 0.03 (0.00-0.03) X10*3/uL Absolute Neuts (auto) 6.3 (2.0-8.3) X10*3/uL Absolute Nucleated RBC 0.000 (0.0-0.012) X10*3/uL Nucleated RBC % (auto) 0.0 (0.0-0.2) /100WBC PT 12.0 (9.9-13.0) SEC INR 1.1 (0.9-1.1) APTT 31.2 (24.1-38.0) SEC Sodium 141 (135-145) mmol/L Potassium 4.7 (3.3-5.1) mmol/L Chloride 108 (96-108) mmol/L Carbon Dioxide 26 (22-29) mmol/L Anion Gap 12 (12-20) BUN 19 H (9-16) mg/dL Creatinine 1.30 (0.5-1.4) mg/dL Estim Creat Clear Calc 41.2 Estimated GFR 53 Random Glucose 97 (60-115) mg/dL Calcium 9.3 (8.4-10.2) mg/dL Total Bilirubin 0.7 (0.0-1.0) mg/dL AST 21 (5-37) U/L ALT 25 (0-40) U/L Alkaline Phosphatase 67 (39-117) U/L Troponin I High Sens (<3.5-35.0) ng/L Total Protein 6.7 (6.5-8.0) g/dL Albumin 4.0 (3.5-5.0) g/dL 02/22/21 02/22/21 Range/Units 13:00 15:19 WBC (4.8-10.8) X10*3/uL RBC (4.60-5.80) X10*6/uL Hgb (14.0-18.0) g/dl Hct (42-52) % MCV (80-98) fL MCH (27.0-33.0) pg MCHC (31.0-36.0) g/dl RDW (11.0-16.0) % Plt Count (160-400) X10*3/uL MPV (9.4-12.4) fL Immature Gran % (Auto) (0.0-0.4) % Neut % (Auto) (45-73) % Lymph % (Auto) (20-40) % Dixon % (Auto) (2-11) % Eos % (Auto) (0-4) % Baso % (Auto) (0-2) % Lymph # (Auto) (1.2-4.9) X10*3/uL Dixon # (Auto) (0.1-1.2) X10*3/uL Eos # (Auto) (0.0-0.4) X10*3/uL Baso # (Auto) (0.0-0.2) X10*3/uL Abs Immat Gran (auto) (0.00-0.03) X10*3/uL Absolute Neuts (auto) (2.0-8.3) X10*3/uL Absolute Nucleated RBC (0.0-0.012) X10*3/uL Nucleated RBC % (auto) (0.0-0.2) /100WBC PT (9.9-13.0) SEC INR (0.9-1.1) APTT (24.1-38.0) SEC Sodium (135-145) mmol/L Potassium (3.3-5.1) mmol/L Chloride (96-108) mmol/L Carbon Dioxide (22-29) mmol/L Anion Gap (12-20) BUN (9-16) mg/dL Creatinine (0.5-1.4) mg/dL Estim Creat Clear Calc Estimated GFR Random Glucose (60-115) mg/dL Calcium (8.4-10.2) mg/dL Total Bilirubin (0.0-1.0) mg/dL AST (5-37) U/L ALT (0-40) U/L Alkaline Phosphatase (39-117) U/L Troponin I High Sens 15.3 D 13.4 (<3.5-35.0) ng/L Total Protein (6.5-8.0) g/dL Albumin (3.5-5.0) g/dL ECG Data Interpretation: Normal sinus rhythm. Ventricular rate 70. Pr interval 186. QRS 88. QTC 453. Negative STEMI Discharge Plan Discharge Clinical Impression: Fall, Skin tear of left upper extremity Patient Disposition: Home, Self-Care Instructions: Abrasion (ED), Fall Prevention (ED) Additional Instructions: Return to the ED immediately for any for abdominal pain, rectal bleeding, vomiting blood, headache, chest pain, shortness of breath, weakness, dizziness, or any other concerning symptoms. Please follow-up with primary care provider. All of the images came back normal. EKG and blood work came back at baseline. Prescriptions: No Action furosemide 20 mg tablet 20 mg PO DAILY 90 Days Qty: 90 RF: 0 atenolol 25 mg Tablet 25 mg PO DAILY RF: 0 tamsulosin 0.4 mg Capsule 0.4 mg PO BEDTIME RF: 0 albuterol sulfate [ProAir HFA] 90 mcg/actuation Hfa Aerosol Inhaler 2 puff INHALATION QID PRN (Reason: Shortness Of Breath) RF: 0 amlodipine [Norvasc] 10 mg tablet 10 mg PO DAILY Qty: 30 RF: 0 montelukast 10 mg tablet 10 mg PO DAILY 30 Days Qty: 30 RF: 11 losartan 50 mg tablet 50 mg PO DAILY RF: 0 aspirin 81 mg tablet,delayed release (DR/EC) 81 mg PO DAILY RF: 0 gabapentin 100 mg capsule 100 mg PO TID RF: 0 isosorbide mononitrate 10 mg tablet 10 mg PO BID RF: 0 Lactobacillus acidophilus 1 billion cell capsule 2,000 mmu cells PO BID RF: 0 multivitamin Tablet 1 tab PO DAILY RF: 0 pantoprazole [Protonix] 20 mg tablet,delayed release (DR/EC) 20 mg PO DAILY RF: 0 montelukast 5 mg tablet,chewable 10 mg PO DAILY RF: 0 fexofenadine 180 mg tablet 180 mg PO DAILY RF: 0 sennosides [senna] 8.6 mg tablet 8.6 mg PO BID RF: 0 Trelegy Ellipta 200-62.5-25 mcg blister with device 1 inh inhalation DAILY RF: 0 acetaminophen [Tylenol] 325 mg tablet 650 mg PO Q6H PRNRF: 0 azithromycin 250 mg tablet 250 mg PO 3XW 28 Days Qty: 12 RF: 6 albuterol sulfate 2.5 mg /3 mL (0.083 %) solution for nebulization 2.5 mg inhalation DAILY 30 Days Qty: 90 RF: 11 oxycodone-acetaminophen 5-325 mg tablet 1 tab PO QID PRNRF: 0 fluticasone propionate 50 mcg/actuation spray,suspension 1 spray intranasal DAILY RF: 0 Interventions: ED Discharge Assessment Last Done: 02/22/21 16:59 Discharge Date/Time: 02/22/21 16:59 Print Language: Luxembourgish
--- NOTE | 2021-02-22 11:28 | ECG_ITS ---
Test Reason : FALL Blood Pressure : / mmHG Vent. Rate : 070 BPM Atrial Rate : 070 BPM P-R Int : 186 ms QRS Dur : 088 ms QT Int : 420 ms P-R-T Axes : 025 059 011 degrees QTc Int : 453 ms Normal sinus rhythm Minimal voltage criteria for LVH, may be normal variant Cannot rule out Inferior infarct (cited on or before 15-AUG-2015) Abnormal ECG When compared with ECG of 27-OCT-2020 13:44, Nonspecific T wave abnormality no longer evident in Lateral leads Referred By: Fernando Man Electronically Signed By:LUZ MARINA VANEGAS
[2021-02-22 12:54] VITALS: BP 119/66; PULSE 72; RESP 20; O2SAT 94
[2021-02-22 13:04] LABS: MANUAL DIFF FLAG NO
[2021-02-22 13:05] LABS: Basophils Absolute Auto 0.1 X10*3/uL (0.0-0.2); Eosinophils Absolute Auto 0.2 X10*3/uL (0.0-0.4); Hematocrit 38.3 % (42-52); Hemoglobin 12.6 g/dl (14.0-18.0); Imm Gran Abs Auto 0.03 X10*3/uL (0.00-0.03); Imm Gran Pct Auto 0.3 % (0.0-0.4); Lymphocytes Absolute Auto 1.2 X10*3/uL (1.2-4.9); Lymphocytes Percent Auto 13.8 % (20-40); Mean Corpuscular HGB Conc 32.9 g/dl (31.0-36.0); Mean Corpuscular Hemoglobin 30.4 pg (27.0-33.0); Mean Corpuscular Volume 92.3 fL (80-98); Mean Platelet Volume 9.1 fL (9.4-12.4); Monocytes Absolute Auto 1.1 X10*3/uL (0.1-1.2); Monocytes Percent Auto 12.2 % (2-11); Neutrophils Absolute Auto 6.3 X10*3/uL (2.0-8.3); Neutrophils Percent Auto 70.7 % (45-73); Platelet Count 232 X10*3/uL (160-400); Red Blood Count 4.15 X10*6/uL (4.60-5.80); Red Cell Distribution Width 11.9 % (11.0-16.0)
[2021-02-22] MEDS: oxyCODONE HCl Immed Release 5 MG TABLET PO (13:06)
[2021-02-22 13:10] LABS: INTERNATIONAL NORM RATIO 1.1 (0.9-1.1)
[2021-02-22 13:13] LABS: Partial Thromboplastin Time 31.2 SEC (24.1-38.0)
[2021-02-22 13:22] LABS: Alanine Aminotransferase 25 U/L (0-40); Alkaline Phosphatase 67 U/L (39-117); Anion Gap 12 (12-20); Aspartate Amino Transferase 21 U/L (5-37); Bilirubin Total 0.7 mg/dL (0.0-1.0); Blood Urea Nitrogen 19 mg/dL (9-16); Calcium 9.3 mg/dL (8.4-10.2); Carbon Dioxide 26 mmol/L (22-29); Chloride 108 mmol/L (96-108); Creatinine Clr Calc Pharmacy 41.2; Estimated Glomerular Filt Rate 53; Glucose Random 97 mg/dL (60-115); Potassium 4.7 mmol/L (3.3-5.1); Sodium 141 mmol/L (135-145); Total Protein 6.7 g/dL (6.5-8.0)
[2021-02-22 13:26] LABS: Troponin-I High Sensitivity 15.3 ng/L (<3.5-35.0)
[2021-02-22] MEDS: Albuterol/Iprat 2.5/0.5MG 3 ML AMPUL.NEB INHALE (13:44)
[2021-02-22 13:46] VITALS: PULSE 71; O2SAT 93
[2021-02-22 15:43] LABS: Troponin-I High Sensitivity 13.4 ng/L (<3.5-35.0)
[2021-02-22 16:00] VITALS: BP 134/71; PULSE 75; RESP 16; TEMP 36.2; O2SAT 95
[2021-02-22] MEDS: Diphth,Pertus(ACell),Tet Adult 0.5 ML SYRINGE IM (16:16)
== END 2021-02-22 16:59 | disposition home or self-care (01) ==
PROVIDERS: Physician Assistant; Emergency Provider Emergency Medicine; PCP Internal Medicine
DX: S20.313A Abrasion of bilateral front wall of thorax, initial encounter (principal); S50.812A Abrasion of left forearm, initial encounter; R07.81 Pleurodynia; G44.309 Post-traumatic headache, unspecified, not intractable; M54.2 Cervicalgia; M79.602 Pain in left arm; M25.552 Pain in left hip; M79.642 Pain in left hand; W01.0XXA Fall on same level from slipping, tripping and stumbling without subsequent striking against object, initial encounter; Y93.9 Activity, unspecified; Y92.9 Unspecified place or not applicable; Y99.9 Unspecified external cause status; Z79.899 Other long term (current) drug therapy; Z79.82 Long term (current) use of aspirin; F17.210 Nicotine dependence, cigarettes, uncomplicated; Z71.6 Tobacco abuse counseling
CPT/HCPCS: 36415; 70450; 71250; 72125; 73090; 73110; 73130; 74176; 80053; 84484; 85025; 85610; 85730; 90471; 90715; 93005; 94640; 99285

== ENCOUNTER 2021-03-05 13:15 | Emergency (ER) | payer MEDICARE, OTHER, SELFPAY ==
--- NOTE | ~2021-03-05 | XR_ITS ---
EXAMINATION: LEFT FOOT AND LEFT ANKLE. CLINICAL INFORMATION: Pain after falling. COMPARISON: None TECHNIQUE: 3 views left foot and 2 views left ankle FINDINGS: Left foot: There is no visible acute fracture, dislocation or subluxation. The end CP and IP joints are normal. The soft tissues are normal. Left ankle: The ankle mortise and subtalar joints are normal. No visible acute fracture, dislocation or lytic process seen. There is mild spurring tip of medial malleoli. XR/XR ankle LT 2V IMPRESSION: Unremarkable left foot exam. No acute fracture or dislocation left ankle except for a small enthesophyte along the tip of medial malleolus.
--- NOTE | ~2021-03-05 | US_ITS ---
EXAMINATION: US VENOUS ULTRASOUND WITH DOPPLER LOWER EXTREMITY, LEFT CLINICAL INFORMATION: Left lower extremity pain. Assess for occult DVT. COMPARISON: Radiographs left ankle and foot 03/05/2021. Bilateral lower extremity venous ultrasound with Doppler 07/30/2015. TECHNIQUE: Ultrasound of the deep veins is performed from the hip to the calf with compression sonography and color and pulse Doppler assessment. Spectral analysis with color-flow imaging is performed. FINDINGS: There is normal venous compression and respiratory variation and augmented flow. The visualized common femoral vein, superficial femoral vein, profunda femoral vein, popliteal vein, and the trifurcation region shows no evidence of deep venous thrombosis. No popliteal fossa cyst. US/US venous duplex LE LT IMPRESSION: No DVT demonstrated in the left lower extremity.
--- NOTE | ~2021-03-05 | XR_ITS ---
EXAMINATION: LEFT FOOT AND LEFT ANKLE. CLINICAL INFORMATION: Pain after falling. COMPARISON: None TECHNIQUE: 3 views left foot and 2 views left ankle FINDINGS: Left foot: There is no visible acute fracture, dislocation or subluxation. The end CP and IP joints are normal. The soft tissues are normal. Left ankle: The ankle mortise and subtalar joints are normal. No visible acute fracture, dislocation or lytic process seen. There is mild spurring tip of medial malleoli. XR/XR foot LT min 3V IMPRESSION: Unremarkable left foot exam. No acute fracture or dislocation left ankle except for a small enthesophyte along the tip of medial malleolus.
[2021-03-05 13:24] VITALS: BP 126/73; BP 138/58; PULSE 85; PULSE 89; RESP 18; TEMP 36.8; O2SAT 93; O2SAT 99; BMI 36.9
--- NOTE | 2021-03-05 13:29 | ED_ITS ---
HPI - Fall General Chief Complaint: Extremity Problem <Moshe Pate MD - Last Filed: 03/05/21 20:04> Stated Complaint: LEFT LEG PAIN/SOB <Moshe Pate MD - Last Filed: 03/05/21 20:04> Time Seen by Provider: 03/05/21 13:27 <Moshe Pate MD - Last Filed: 03/05/21 20:04> Source: patient and EMS <Moshe Pate MD - Last Filed: 03/05/21 20:04> Mode of arrival: EMS <Moshe Pate MD - Last Filed: 03/05/21 20:04> Limitations: no limitations <Moshe Pate MD - Last Filed: 03/05/21 20:04> History of Present Illness HPI Narrative: 80-year-old male came in by ambulance for evaluation of left leg pain. 80-year-old male lives home with his independently, patient fell 10 days ago at home described as a mechanical fall after he missed his footing and he stepped on the wrong step fell 2 steps of stairs, patient was evaluated in the emergency department and sent home, patient return for worsening and progression of left leg pain and having trouble to bear weight and ambulate on the left leg. Patient declined any other trauma to left leg. Patient is also known to have asthma when transportation was complaining of wheezing patient improved with using his own albuterol. <Moshe Pate MD - Last Filed: 03/05/21 20:04> Related Data Home Medications: Home Medications Medication Instructions Recorded Confirmed albuterol sulfate 90 mcg/actuation 2 puff INHALATION QID PRN 06/19/20 03/05/21 aerosol inhaler (ProAir HFA) atenolol 25 mg tablet 25 mg PO DAILY 06/19/20 03/05/21 tamsulosin 0.4 mg capsule 0.4 mg PO BEDTIME 06/19/20 03/05/21 aspirin 81 mg tablet,delayed 81 mg PO DAILY 11/19/20 03/05/21 release fexofenadine 180 mg tablet 180 mg PO DAILY 11/19/20 03/05/21 gabapentin 100 mg capsule 100 mg PO TID 11/19/20 03/05/21 isosorbide mononitrate 10 mg tablet 10 mg PO BID 11/19/20 03/05/21 pantoprazole 20 mg tablet,delayed 20 mg PO DAILY@0630 11/19/20 03/05/21 release (Protonix) acetaminophen 325 mg tablet 650 mg PO Q6H PRN 12/12/20 03/05/21 (Tylenol) fluticasone fur. 200 mcg-umeclid 1 inh INHALATION DAILY 12/12/20 03/05/21 62.5 mcg-vilant 25 mcg inhalat.powder (Trelegy Ellipta) fluticasone propionate 50 1 spray INTRANASAL DAILY 02/12/21 03/05/21 mcg/actuation nasal spray,suspension oxycodone-acetaminophen 5 mg-325 1 tab PO QID PRN 02/12/21 03/05/21 mg tablet albuterol sulfate 2.5 mg INHALATION BID PRN 03/05/21 03/05/21 azithromycin 250 mg tablet 250 mg PO MOWEFR@0900 03/05/21 03/05/21 losartan 100 mg tablet 100 mg PO DAILY 03/05/21 03/05/21 mirabegron 50 mg tablet,extended 1 tab PO DAILY@1300 03/05/21 03/05/21 release 24 hr (Myrbetriq) Previous Rx's Medication Instructions Recorded montelukast 10 mg tablet 10 mg PO DAILY 30 Days #30 tab 06/26/20 amlodipine 10 mg tablet (Norvasc) 10 mg PO DAILY #30 tab 10/30/20 albuterol sulfate 2.5 mg INHALATION DAILY 30 Days 12/13/20 #90 ml furosemide 20 mg tablet 20 mg PO DAILY 90 Days #90 tab 02/14/21 <Moshe Pate MD - Last Filed: 03/05/21 20:04> Allergies/Adverse Reactions: Allergies Allergy/AdvReac Type Severity Reaction Status Date / Time ibuprofen Allergy Mild Gastrointestinal Verified 02/14/21 14:09 Upset <Moshe Pate MD - Last Filed: 03/05/21 20:04> Review of Systems Review of Systems: All other systems are reviewed and are negative Constitutional: Reports as per HPI and Reports no additional constitutional complaints Eyes: Reports as per HPI and Reports no additional eye complaints Reports system reviewed and no additional complaints, except as documented Cardiovascular: Reports as per HPI and Reports no additional cardiovascular complaints Respiratory: Reports as per HPI and Reports no additional respiratory complaints Gastrointestinal: Reports as per HPI and Reports no additional gastrointestinal complaints Genitourinary: Reports no additional female genitourinary complaints Musculoskeletal: Reports no additional musculoskeletal complaints Skin/Breast: Reports system reviewed and no additional complaints, except as docu Psychiatric: Reports no additional psychiatric complaints Endocrine: Reports no additional endocrine complaints Hematologic/Lymphatic: Reports no additional hematologic/lymphatic complaints Allergic/Immunologic: Reports no additional allergic/immunologic complaints Reports system reviewed and no additional complaints, except as documented and Reports Abnormal speech present <Moshe Pate MD - Last Filed: 03/05/21 20:04> [facility] Past Medical History Medical History: Medical History BPH (benign prostatic hyperplasia) COPD (chronic obstructive pulmonary disease) HTN (hypertension) Inferior MS Pneumonia Pneumonitis Pulmonary nodules <Moshe Pate MD - Last Filed: 03/05/21 20:04> Surgical History: Surgical History Hx of cardiac cath <Moshe Pate MD - Last Filed: 03/05/21 20:04> Social History Social History: Social History Household Members: Spouse Housing: House Do you presently have visiting nurse or other home services: No Alcohol intake: never Patient Tobacco Use Status: Former Tobacco user Tobacco use type: Cigarette Advance Directives: Yes Advance Directives on File: Yes Advance Directives Date on File: 06/25/20 service: No Current occupational status: retired <Moshe Pate MD - Last Filed: 03/05/21 20:04> Physical Exam Vital Signs: Vital Signs: Last Vital Signs Temp 98.5 F 03/06/21 06:19 Pulse 69 03/06/21 08:28 Resp 16 03/06/21 06:19 BP 130/72 03/06/21 07:55 Pulse Ox 96 03/06/21 06:19 Body Mass Index 36.9 Vital signs have been reviewed as appeared to be correct. Blood pressure normal. Heart rate normal. Respiration rate normal. Temperature normal. Oxygen saturation normal. <Moshe Pate MD - Last Filed: 03/05/21 20:04> Vital Signs: Last Vital Signs Temp 98.5 F 03/06/21 06:19 Pulse 69 03/06/21 08:28 Resp 16 03/06/21 06:19 BP 130/72 03/06/21 07:55 Pulse Ox 96 03/06/21 06:19 Body Mass Index 36.9 <Jenny Steward NP - Last Filed: 03/06/21 08:46> Appearance: Alert. Oriented X3. No acute distress. Head: Normal external exam. Normocephalic. Atraumatic. No G[place]a signs noted. No raccoon eyes noted Eyes: PERRLA. EOMI. Conjunctiva and sclera normal. Eyelids normal. ENT: TM's Normal. Pharynx normal. Uvula midline. Moist mucous membranes. No trismus noted. No drooling noted. No muffled voice noted. Neck: Normal inspection. Neck supple. FROM. No adenopathy. Thyroid Normal. No meningeal signs. No neck mass noted. CVS: Normal heart rate and rhythm. Heart sound normal. No murmurs noted. Pulses normal throughout. Respiratory: No respiratory distress. Painless inspiration. Breath sounds normal. No wheezes/rales/rhonchi noted. Chest nontender. No accessory muscle usage noted or decreased air movement noted. Abdomen: Soft and nontender. Bowel sounds normal in all 4 quadrants. No distention noted. No organomegaly noted. No visible injury noted. Back: No CVA tenderness. Full range of motion noted. Skin: Skin warm and dry. Normal skin color. Normal skin turgor. No rashes/lesions/lacerations noted. Extremities: No lower extremity edema. Extremities exhibit normal range of motion. Extremities nontender. Neuro: Oriented X 3. Cranial nerve exam: II-XII are grossly intact No motor deficit. No sensory deficit. Reflexes normal. <Moshe Pate MD - Last Filed: 03/05/21 20:04> Course Course Course Narrative: 80-year-old male came in for a progressive worsening of pain to the left lower extremity is on unable to ambulate at home, patient normally lives in private home with his mostly independently, due to change of patient's lifestyle after the fall I discussed the option of placement with the patient, will get director of social media marketing consultation and physical therapy consultation. <Moshe Pate MD - Last Filed: 03/05/21 20:04> Reevaluation(s) Reevaluation #1: Physician observation started at 15:46 . Patient placed in physician observation because the patient needed more time for medication to work and to see PT/case management for evaluation and the need for placement patient's vital sign were stable, patient is alert and oriented , neuro exam unchanged, unremarkable rest of physical exam. <Moshe Pate MD - Last Filed: 03/05/21 20:04> Time: 15:46 <Moshe Pate MD - Last Filed: 03/05/21 20:04> Reevaluation #2: Patient was seen yesterday by my colleague Dr. Pate. Decision was made to hold the patient overnight for case management and physical therapy. Will continue physician observation pending disposition. No complaints from nursing overnight. Vital signs reviewed and stable. Will continue with plan of care <Jenny Steward NP - Last Filed: 03/06/21 08:46> MDM - Fall Medical Records Attestation: I reviewed the patient's medical records. <Moshe Pate MD - Last Filed: 03/05/21 20:04> Lab Data Attestation: I reviewed the patient's lab results. <Moshe Pate MD - Last Filed: 03/05/21 20:04> Result diagrams: : 03/05/21 19:39 03/05/21 19:39 <Moshe Pate MD - Last Filed: 03/05/21 20:04> Labs: Lab Results 03/05/21 03/05/21 03/05/21 Range/Units 19:39 19:39 19:39 WBC 6.6 (4.8-10.8) X10*3/uL RBC 4.58 L (4.60-5.80) X10*6/uL Hgb 14.0 (14.0-18.0) g/dl Hct 41.8 L (42-52) % MCV 91.3 (80-98) fL MCH 30.6 (27.0-33.0) pg MCHC 33.5 (31.0-36.0) g/dl RDW 11.7 (11.0-16.0) % Plt Count 313 D (160-400) X10*3/uL MPV 9.2 L (9.4-12.4) fL Immature Gran % (Auto) 0.3 (0.0-0.4) % Neut % (Auto) 59.8 (45-73) % Lymph % (Auto) 23.1 (20-40) % [place] % (Auto) 13.3 H (2-11) % Eos % (Auto) 2.1 (0-4) % Baso % (Auto) 1.4 (0-2) % Lymph # (Auto) 1.5 (1.2-4.9) X10*3/uL [place] # (Auto) 0.9 (0.1-1.2) X10*3/uL Eos # (Auto) 0.1 (0.0-0.4) X10*3/uL Baso # (Auto) 0.1 (0.0-0.2) X10*3/uL Abs Immat Gran (auto) 0.02 (0.00-0.03) X10*3/uL Absolute Neuts (auto) 4.0 (2.0-8.3) X10*3/uL Absolute Nucleated RBC 0.000 (0.0-0.012) X10*3/uL Nucleated RBC % (auto) 0.0 (0.0-0.2) /100WBC Sodium 143 (135-145) mmol/L Potassium 4.3 (3.3-5.1) mmol/L Chloride 105 (96-108) mmol/L Carbon Dioxide 30 H (22-29) mmol/L Anion Gap 12 (12-20) BUN 15 (9-16) mg/dL Creatinine 1.11 (0.5-1.4) mg/dL Estim Creat Clear Calc 48.2 Estimated GFR > 60 Random Glucose 151 H D (60-115) mg/dL Calcium 9.6 (8.4-10.2) mg/dL COVID-19 ([facility]) Negative (Negative) COVID-19 Clin Com See Note <Moshe Pate MD - Last Filed: 03/05/21 20:04> Lab Results 03/05/21 03/05/21 03/05/21 Range/Units 19:39 19:39 19:39 WBC 6.6 (4.8-10.8) X10*3/uL RBC 4.58 L (4.60-5.80) X10*6/uL Hgb 14.0 (14.0-18.0) g/dl Hct 41.8 L (42-52) % MCV 91.3 (80-98) fL MCH 30.6 (27.0-33.0) pg MCHC 33.5 (31.0-36.0) g/dl RDW 11.7 (11.0-16.0) % Plt Count 313 D (160-400) X10*3/uL MPV 9.2 L (9.4-12.4) fL Immature Gran % (Auto) 0.3 (0.0-0.4) % Neut % (Auto) 59.8 (45-73) % Lymph % (Auto) 23.1 (20-40) % [place] % (Auto) 13.3 H (2-11) % Eos % (Auto) 2.1 (0-4) % Baso % (Auto) 1.4 (0-2) % Lymph # (Auto) 1.5 (1.2-4.9) X10*3/uL [place] # (Auto) 0.9 (0.1-1.2) X10*3/uL Eos # (Auto) 0.1 (0.0-0.4) X10*3/uL Baso # (Auto) 0.1 (0.0-0.2) X10*3/uL Abs Immat Gran (auto) 0.02 (0.00-0.03) X10*3/uL Absolute Neuts (auto) 4.0 (2.0-8.3) X10*3/uL Absolute Nucleated RBC 0.000 (0.0-0.012) X10*3/uL Nucleated RBC % (auto) 0.0 (0.0-0.2) /100WBC Sodium 143 (135-145) mmol/L Potassium 4.3 (3.3-5.1) mmol/L Chloride 105 (96-108) mmol/L Carbon Dioxide 30 H (22-29) mmol/L Anion Gap 12 (12-20) BUN 15 (9-16) mg/dL Creatinine 1.11 (0.5-1.4) mg/dL Estim Creat Clear Calc 48.2 Estimated GFR > 60 Random Glucose 151 H D (60-115) mg/dL Calcium 9.6 (8.4-10.2) mg/dL COVID-19 ([facility]) Negative (Negative) COVID-19 Clin Com See Note <Jenny Steward NP - Last Filed: 03/06/21 08:46> Imaging Data Left foot/ankle x-ray: Radiologist's impression: Unremarkable left foot exam. ? No acute fracture or dislocation left ankle except for a small enthesophyte along the tip of medial malleolus. <Moshe Pate MD - Last Filed: 03/05/21 20:04> Discharge Plan Discharge Clinical Impression: Acute myofascial pain <Moshe Pate MD - Last Filed: 03/05/21 20:04> Prescriptions: No [facility] furosemide 20 mg tablet 20 mg PO DAILY 90 Days Qty: 90 RF: 0 atenolol 25 mg Tablet 25 mg PO DAILY RF: 0 tamsulosin 0.4 mg Capsule 0.4 mg PO BEDTIME RF: 0 albuterol sulfate [ProAir HFA] 90 mcg/actuation Hfa Aerosol Inhaler 2 puff INHALATION QID PRN (Reason: Shortness Of Breath) RF: 0 amlodipine [Norvasc] 10 mg tablet 10 mg PO DAILY Qty: 30 RF: 0 albuterol sulfate 2.5 mg /3 mL (0.083 %) solution for nebulization 2.5 mg inhalation BID PRN (Reason: Shortness Of Breath) RF: 0 losartan 100 mg Tablet 100 mg PO DAILY RF: 0 Myrbetriq 50 mg tablet extended release 24 hr 1 tab PO DAILY@1300 RF: 0 azithromycin 250 mg tablet 250 mg PO MOWEFR@0900 RF: 0 montelukast 10 mg tablet 10 mg PO DAILY 30 Days Qty: 30 RF: 11 aspirin 81 mg tablet,delayed release (DR/EC) 81 mg PO DAILY RF: 0 gabapentin 100 mg capsule 100 mg PO TID RF: 0 isosorbide mononitrate 10 mg tablet 10 mg PO BID RF: 0 pantoprazole [Protonix] 20 mg tablet,delayed release (DR/EC) 20 mg PO DAILY@0630 RF: 0 fexofenadine 180 mg tablet 180 mg PO DAILY RF: 0 Trelegy Ellipta 200-62.5-25 mcg blister with device 1 inh inhalation DAILY RF: 0 acetaminophen [Tylenol] 325 mg tablet 650 mg PO Q6H PRN (Reason: Pain (Scale Score 1-3)) RF: 0 albuterol sulfate 2.5 mg /3 mL (0.083 %) solution for nebulization 2.5 mg inhalation DAILY 30 Days Qty: 90 RF: 11 oxycodone-acetaminophen 5-325 mg tablet 1 tab PO QID PRN (Reason: Pain (Scale Score 1-3)) RF: 0 fluticasone propionate 50 mcg/actuation spray,suspension 1 spray intranasal DAILY RF: 0 <Moshe Pate MD - Last Filed: 03/05/21 20:04>
[2021-03-05] MEDS: Acetaminophen 325 MG TABLET 650 MG PO (14:22)
--- NOTE | 2021-03-05 17:19 | MHC.CM.ED ---
CM met with patient. A&Ox3. Lives with and extended family. is caring for her mother. Pt is independent. Pt uses a cane. Pt states they have Meals on Wheels from [facility]. Pt has no concerns with transportation. Pt has been to [facility] in October and would like to return there if possible. Pt to have PT evaluation in the am. Pt has not been vaccinated for Covid. Pt also agreeable to local STR if acute rehabs do not offer a bed, but refuses [facility] of . D/C plan is [facility]. Transportation provided. CM to follow for d/c needs.
[2021-03-05 19:21] VITALS: BP 129/66; PULSE 82; RESP 16; O2SAT 94
[2021-03-05 19:43] LABS: MANUAL DIFF FLAG NO
[2021-03-05 19:45] LABS: Basophils Absolute Auto 0.1 X10*3/uL (0.0-0.2); Basophils Percent Auto 1.4 % (0-2); Eosinophils Absolute Auto 0.1 X10*3/uL (0.0-0.4); Eosinophils Percent Auto 2.1 % (0-4); Hematocrit 41.8 % (42-52); Imm Gran Abs Auto 0.02 X10*3/uL (0.00-0.03); Imm Gran Pct Auto 0.3 % (0.0-0.4); Lymphocytes Absolute Auto 1.5 X10*3/uL (1.2-4.9); Lymphocytes Percent Auto 23.1 % (20-40); Mean Corpuscular HGB Conc 33.5 g/dl (31.0-36.0); Mean Corpuscular Hemoglobin 30.6 pg (27.0-33.0); Mean Corpuscular Volume 91.3 fL (80-98); Mean Platelet Volume 9.2 fL (9.4-12.4); Monocytes Absolute Auto 0.9 X10*3/uL (0.1-1.2); Monocytes Percent Auto 13.3 % (2-11); Neutrophils Percent Auto 59.8 % (45-73); Platelet Count 313 X10*3/uL (160-400); Red Blood Count 4.58 X10*6/uL (4.60-5.80); Red Cell Distribution Width 11.7 % (11.0-16.0); White Blood Count 6.6 X10*3/uL (4.8-10.8)
--- NOTE | 2021-03-05 19:48 | PHA.MEDREC ---
Pharmacy Consult ? Medication Reconciliation Pharmacy has completed the medication reconciliation. Spoke with patient in the ED.
[2021-03-05 19:59] LABS: COVID-19 Test Negative (Negative)
[2021-03-05 20:05] LABS: Anion Gap 12 (12-20); Blood Urea Nitrogen 15 mg/dL (9-16); Calcium 9.6 mg/dL (8.4-10.2); Carbon Dioxide 30 mmol/L (22-29); Chloride 105 mmol/L (96-108); Glucose Random 151 mg/dL (60-115); Potassium 4.3 mmol/L (3.3-5.1); Sodium 143 mmol/L (135-145)
[2021-03-05 20:27] LABS: Creatinine Clr Calc Pharmacy 48.2; Estimated Glomerular Filt Rate > 60
[2021-03-05 21:11] VITALS: BP 137/74; PULSE 82; RESP 16; O2SAT 94
[2021-03-05 21:34] VITALS: BP 127/71; PULSE 83
[2021-03-05] MEDS: amLODIPine Besylate 10 MG TABLET PO (21:34)
[2021-03-05 21:35] VITALS: BP 127/71; PULSE 83
[2021-03-05] MEDS: Tamsulosin HCL 0.4 MG CAPSULE PO (21:35)
[2021-03-05] MEDS: atenoloL 25 MG TABLET PO (21:35)
[2021-03-05] MEDS: Gabapentin 100 MG CAPSULE PO (21:35)
[2021-03-05] MEDS: Furosemide 20 MG TABLET PO (21:35)
[2021-03-05] MEDS: Aspirin Enteric Coated 81 MG TABLET.DR PO (21:35)
[2021-03-05] MEDS: Montelukast Sodium 10 MG TABLET PO (21:35)
[2021-03-05 21:36] VITALS: BP 127/71; PULSE 83
[2021-03-05] MEDS: Losartan Potassium 50 MG TABLET 100 MG PO (21:36)
[2021-03-05] MEDS: oxyCODONE HCl Immed Release 5 MG TABLET PO (21:50)
[2021-03-05] MEDS: Fluticasone Propionate Nasal 16 GM SPRAY 1 SPRAY NOSTRIL-B (23:27)
--- NOTE | 2021-03-05 23:31 | PC.NURSE ---
PT INCONTINENT OF URINE, ASSISTED CHANGE INTO HOSPITAL PANTS. PT HAS LEFT HEMIPARESIS, NEEDS ASSIST. PT ALSO REPORTS HE HAS NOT MOVED HIS BOWELS IN 7 DAYS.
[2021-03-06] VITALS (7 sets, daily range): BP systolic 130–139; BP diastolic 70–75; PULSE 69–72; RESP 16; TEMP 36.9; O2SAT 95–96
--- NOTE | 2021-03-06 02:31 | PC.NURSE ---
PT TRANSFERRED TO HOSPITAL BED FOR COMFORT.
[2021-03-06] MEDS: Omeprazole 20 MG CAPSULE.DR PO (06:28)
[2021-03-06] MEDS: Albuterol Sulfate 90 MCG 8 GM INHALER 2 PUFF INHALE (06:28)
[2021-03-06] MEDS: Azithromycin 250 MG TABLET PO (07:38)
[2021-03-06] MEDS: Aspirin Enteric Coated 81 MG TABLET.DR PO (07:38)
[2021-03-06] MEDS: Furosemide 20 MG TABLET PO (07:38)
[2021-03-06] MEDS: atenoloL 25 MG TABLET PO (07:38)
[2021-03-06] MEDS: Gabapentin 100 MG CAPSULE PO (07:38)
[2021-03-06] MEDS: Loratadine 10 MG TABLET PO (07:39)
[2021-03-06] MEDS: Losartan Potassium 50 MG TABLET 100 MG PO (07:39)
[2021-03-06] MEDS: amLODIPine Besylate 10 MG TABLET PO (07:39)
[2021-03-06] MEDS: Montelukast Sodium 10 MG TABLET PO (07:39)
[2021-03-06] MEDS: Fluticasone Propionate Nasal 16 GM SPRAY 1 SPRAY NOSTRIL-B (07:40)
--- NOTE | 2021-03-06 07:45 | PC.NURSE ---
care assumed for pt at 0700, pt medicated per emar. extra linen removed from underneath pt. pt repositioned and sat up. aware of plan of care for admission and denied having any questions. rt called for duo neb at this time no answer.
[2021-03-06] MEDS: Albuterol Sulfate (0.083%) 2.5 MG/3 ML VIAL.NEB INHALE (08:04)
--- NOTE | 2021-03-06 09:13 | MHC.CM.ED ---
Patient remains in ER. Physical therapy eval completed. Rehab is recommended. Clinical updates sent to facilities still following. Continue to monitor for d/c needs.
--- NOTE | 2021-03-06 12:53 | MHC.CM.ED ---
[facility] is able to offer a bed today. Patient can leave at 3pm. [facility] booked. Med nec with chart. Patient, Nini Campoverde RN and Jenny MEMBRENO aware. Continue to monitor for d/c needs.
[2021-03-06] MEDS: Mirabegron 50 MG TAB.ER.24H PO (14:30)
--- NOTE | 2021-03-06 14:40 | PC.NURSE ---
pt ate all of his lunch- aware of plans to leave at 3 pm. denied having any questions
== END 2021-03-06 15:12 | disposition skilled nursing facility (03) ==
PROVIDERS: Emergency Provider Emergency Medicine; PCP Internal Medicine
DX: M79.18 Myalgia, other site (principal); M79.605 Pain in left leg; R60.0 Localized edema; F17.210 Nicotine dependence, cigarettes, uncomplicated; Z20.822 Contact with and (suspected) exposure to COVID-19; Z71.6 Tobacco abuse counseling; Z79.899 Other long term (current) drug therapy; Z91.81 History of falling
CPT/HCPCS: 36415; 73600; 73630; 80048; 85025; 87635; 93971; 97162; 99284; 99285

== ENCOUNTER → 2021-05-02 14:09 | Outpatient (BNVA) | payer MEDICARE, OTHER, SELFPAY | PROVIDERS: PCP Internal Medicine; Visit Provider Internal Medicine Cardiovascular Disease | DX: I20.8 Other forms of angina pectoris (principal) | CPT/HCPCS: 93005; 99212 ==

== ENCOUNTER → 2021-05-09 08:11 | Outpatient (REF) | payer MEDICARE, OTHER, SELFPAY ==
--- NOTE | ~2021-05-09 | NM_ITS ---
Myocardial perfusion study Indication: Angina to evaluate for myocardial ischemia Technique: The patient was brought in for a Lexiscan perfusion study on 05/09/2021. Patient performed low-level exercise and was injected 0.4 mg of Lexiscan intravenously. Within a minute of injection, 30 mCi of sestamibi was given intravenously. Images were obtained using the SPECT gamma camera interlaced with the gating device. Images were obtained in supine position. Resting perfusion study was performed on 05/10/2021. Patient was administered 30 mCi of sestamibi intravenously at rest. Images were then obtained in supine position. Images obtained with and without CT attenuation. Total DLP 128 mGy-cm. Images were processed with the software and compared side to side in short axis, horizontal long axis and vertical long axis views. Findings: The stress perfusion study showed non attenuated images show absent uptake in the basal inferior and severely reduced uptake in the mid and inferoapical wall of the LV myocardium. Is also moderately reduced uptake in the inferoseptal and adjacent inferolateral wall of the LV myocardium.. The gated study shows low normal LV systolic function with calculated LVEF of 49%. LV cavity is normal in size. The gated study shows reduced wall thickening and contraction of basal inferior segments. Resting study shows minimally reversible defect of the basal inferior with much improved uptake in the mid inferior and apical inferior wall of the LV myocardium as well as the septal wall of the LV myocardium and adjacent inferolateral wall.. Gating at rest reveals inferobasal wall motion abnormality with ejection fraction at 44%. The findings are consistent with moderately severe ischemia of the inferior wall with possible small area of infarction the basal inferior wall or could represent severe ischemia in the basal inferior wall.. NM/NM cardiolite stress test Impression: 1. 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 2. Gated LVEF is 49% 3. Transient ischemic dilatation not present EKG is nondiagnostic for ischemia
--- NOTE | 2021-05-09 08:17 | CA_ITS ---
Acquisition Time: 2021-05-09 08:20:03 Total Exercise Time: 00:02:00 Test Indications: CP Medications: SEE CHART Protocol: LEXISCAN Max HR: 094 BPM 67% of Pred: 139 BPM Max BP: 122/070 mmHG Max Work Load: 1.0 METS Pharmacological stress test with Lexiscan injection, while sitting, with shortness of breath, no chest discomfort, with isolated PVCs, with normotensive response to injection, with nondiagnostic EKG for ischemia. In recovery he was treated with Aminophylline 75mg IVP to reverse Lexiscan with improvement in breathing. Nuclear images pending. Test reviewed with Dr Howell. Test was ordered as an exercise nuclear stress test however pt was using a cane and quite sob with ambulating into stress lab. He then took 2 puffs of his home Albuteral inhaler with improvement in breathing. Test changed to a pharmacological nuclear stress test. Referred By: Jamie Wilson Overread By: KACY RODRIGUEZ
== END ==
LOC: HO.CARD 08:11
PROVIDERS: PCP Internal Medicine; Visit Provider Internal Medicine Cardiovascular Disease
DX: I20.8 Other forms of angina pectoris (principal)
CPT/HCPCS: 78452; 93017; A9500; J0280; J2785

== ENCOUNTER → 2021-05-20 14:21 | Outpatient (BNVA) | payer MEDICARE, OTHER, SELFPAY | PROVIDERS: PCP Internal Medicine; Visit Provider Internal Medicine Cardiovascular Disease | DX: I25.118 Atherosclerotic heart disease of native coronary artery with other forms of angina pectoris (principal); R94.39 Abnormal result of other cardiovascular function study | CPT/HCPCS: 99212 ==

== ENCOUNTER → 2021-07-04 14:07 | Outpatient (BNVA) | payer OTHER, SELFPAY | PROVIDERS: Visit Provider Internal Medicine Cardiovascular Disease | DX: I20.8 Other forms of angina pectoris (principal); R94.39 Abnormal result of other cardiovascular function study | CPT/HCPCS: 99212 ==

== ENCOUNTER → 2021-08-07 10:31 | Outpatient (BNVA) | payer MEDICARE, SELFPAY | PROVIDERS: PCP Internal Medicine; Visit Provider Hospitalist | DX: J41.1 Mucopurulent chronic bronchitis (principal); R91.8 Other nonspecific abnormal finding of lung field; J18.9 Pneumonia, unspecified organism | CPT/HCPCS: 99212 ==

== ENCOUNTER 2021-08-08 17:20 | Outpatient (REF) | payer MEDICARE, SELFPAY | END 2021-08-08 17:21 | disposition home or self-care (01) | LOC: HO.LNP 17:20 | PROVIDERS: Visit Provider Hospitalist | DX: J44.9 Chronic obstructive pulmonary disease, unspecified (principal) | CPT/HCPCS: 87070; 87205 ==

== ENCOUNTER → 2021-10-14 10:42 | Outpatient (BNVA) | payer MEDICARE, SELFPAY | PROVIDERS: PCP Internal Medicine; Visit Provider Hospitalist | DX: J41.1 Mucopurulent chronic bronchitis (principal); J18.9 Pneumonia, unspecified organism; R91.8 Other nonspecific abnormal finding of lung field | CPT/HCPCS: 99212 ==

== ENCOUNTER → 2021-10-28 13:31 | Outpatient (BNVA) | payer MEDICARE, SELFPAY | PROVIDERS: PCP Internal Medicine; Visit Provider Internal Medicine Cardiovascular Disease | DX: I25.118 Atherosclerotic heart disease of native coronary artery with other forms of angina pectoris (principal); R06.00 Dyspnea, unspecified; Z79.899 Other long term (current) drug therapy | CPT/HCPCS: 93005; 99212 ==

== ENCOUNTER 2022-04-15 11:43 | Outpatient (REF) | payer MEDICARE, OTHER, SELFPAY ==
--- NOTE | ~2022-04-15 | XR_ITS ---
EXAMINATION: XR CHEST CLINICAL INFORMATION: Dyspnea COMPARISON: None TECHNIQUE: 2 views of the chest were obtained. FINDINGS: The lungs are well-expanded and clear of acute process. The heart size and pulmonary vascularity is normal. No gross bony abnormality seen. XR/XR chest 2V IMPRESSION: Unremarkable chest exam.
== END 2022-04-15 11:44 | disposition home or self-care (01) ==
LOC: HO.XRAY 11:43
PROVIDERS: PCP Internal Medicine; Visit Provider Hospitalist
DX: Z01.811 Encounter for preprocedural respiratory examination (principal); R06.00 Dyspnea, unspecified; R91.8 Other nonspecific abnormal finding of lung field; J41.1 Mucopurulent chronic bronchitis; J18.9 Pneumonia, unspecified organism
CPT/HCPCS: 71046; 99212

== ENCOUNTER → 2022-05-05 13:11 | Outpatient (BNVA) | payer MEDICARE, SELFPAY | PROVIDERS: PCP Internal Medicine; Visit Provider Internal Medicine Cardiovascular Disease | DX: Z01.810 Encounter for preprocedural cardiovascular examination (principal); I20.8 Other forms of angina pectoris; R06.00 Dyspnea, unspecified; Z79.82 Long term (current) use of aspirin; Z79.899 Other long term (current) drug therapy | CPT/HCPCS: 93005; 99212 ==

== ENCOUNTER → 2022-05-06 07:58 | Outpatient (REF) | payer MEDICARE, OTHER, SELFPAY ==
--- NOTE | 2022-05-06 08:03 | CA_ITS ---
Acquisition Time: 2022-05-06 08:17:40 Total Exercise Time: 00:04:32 Test Indications: Pre-Op Evaluation CAD Medications: AMLODIPINE ASA ATENOLOL BUDESONIDE FEXOFENIDINE FLONASE FUROSEMIDE GABAPENTIN GABAPENTIN OSOSORBIDE Protocol: MOD GARFIELD Max HR: 090 BPM 65% of Pred: 138 BPM Max BP: 100/060 mmHG Max Work Load: 1.9 METS Exercise stress test with exercise 4 min 32 sec of personalized modified Garfield protocol ( 0.7 MPH at 0% incline for 2 min, then 0.7 MPH and 4% incline for 2 min 32 sec), acheving 59% MPHR, 1.9 METs, with inability to walk at faster or longer due to hip pain and sob with expiratory wheezing, no chest discomfort, with isolated PVCs and PACs, with normotensive response to exercise, with nondiagnostic EKG for ischemia due to suboptimal heart rate. Test reviewed with Dr Trejo Referred By: Jamie Wilson Overread By: KACY RODRIGUEZ
== END ==
LOC: HO.CARD 07:58
PROVIDERS: PCP Internal Medicine; Visit Provider Internal Medicine Cardiovascular Disease
DX: I20.8 Other forms of angina pectoris (principal)
CPT/HCPCS: 93017

== ENCOUNTER → 2022-10-15 11:12 | Outpatient (BNVA) | payer MEDICARE, SELFPAY | PROVIDERS: PCP Internal Medicine; Visit Provider Hospitalist | DX: Z01.811 Encounter for preprocedural respiratory examination (principal); R91.8 Other nonspecific abnormal finding of lung field; J41.1 Mucopurulent chronic bronchitis; J18.9 Pneumonia, unspecified organism; R10.13 Epigastric pain | CPT/HCPCS: 99212 ==

== ENCOUNTER → 2022-10-24 11:32 | Outpatient (REF) | payer MEDICARE, SELFPAY ==
--- NOTE | ~2022-10-24 | XR_ITS ---
EXAMINATION: XR CHEST CLINICAL INFORMATION: Unspecified chest pain COMPARISON: 04/15/2022 TECHNIQUE: 2 views of the chest were obtained. FINDINGS: No significant abnormality is noted involving the heart, lungs, mediastinum, bony thorax or soft tissues. XR/XR chest 2V IMPRESSION: Unremarkable examination, without interval change.
--- NOTE | 2022-10-24 11:38 | ECG_ITS ---
Test Reason : CHRONIC COPD Blood Pressure : / mmHG Vent. Rate : 076 BPM Atrial Rate : 076 BPM P-R Int : 182 ms QRS Dur : 088 ms QT Int : 406 ms P-R-T Axes : 036 065 015 degrees QTc Int : 456 ms Normal sinus rhythm Normal ECG When compared with ECG of 22-FEB-2021 13:01, No significant change was found Referred By: Ac Hamilton Electronically Signed By:SAMRA GORDON MD
== END ==
LOC: HO.CARD 11:32
PROVIDERS: PCP Internal Medicine; Visit Provider Hospitalist
DX: R07.9 Chest pain, unspecified (principal); J44.9 Chronic obstructive pulmonary disease, unspecified
CPT/HCPCS: 71046; 93005

== ENCOUNTER 2022-12-23 13:16 | Outpatient (AMB) | payer MEDICARE, SELFPAY ==
[2022-12-23 13:47] VITALS: PULSE 83; O2SAT 88; BMI 33.8
--- NOTE | 2022-12-23 13:47 | MHC.OFFVIS ---
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 He has background history of coronary artery disease. He presented to us at [facility] with mild NSTEMI in the setting of COPD exacerbation with ST depressions. After discussion he was taken for cardiac catheterization which showed GUNITE MIXER of the right coronary artery with pixn-sn-zsgyl collaterals and ostial diagonal stenosis. We decided to medically manage him. He has advanced lung disease due to COPD. He is saying he is doing better with inhalers and medications. He has bilateral lower extremity edema. He also has some shoulder issues and will require surgery in 1 month. He is complaining that he has been off balance a lot and tends to fall to the right side of the body. 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 He is saying he consistently falls right-sided. He has been using a cane to walk. 02/12/2021 the patient is here for a pulmonary follow-up visit. Since we last spoke the patient seems to be doing better from a respiratory status. Starting the nebulized therapy has helped him. He is less winded. He also continues seasonal mycin antibiotics 3 times a week. I am hopeful that once he completes this prescription he does not need to renew it. Will try to simplify his respiratory regimen. He is no longer requiring any prednisone. Patient has been having significant dizziness and he did undergo an MRI of the brain he is waiting for the results. He is also plan to undergo surgery for carpal tunnel and also for his shoulder issues. It is more respiratory status the patient is able to go ahead and consent for anesthesia and for his surgeries. 08/07/2021 the patient is here for a pulmonary follow-up visit. He continues to have significant chest congestion productive coughing wheezing. Moderate severity. He has been using the Trelegy inhaler in addition to that he has also been azithromycin 3 times a week. However, slowly been partially helpful. He recently also had a cardiac stress test which was abnormal with reversible changes. Therefore he was optimized on his cardioprotective medications. His symptoms have been getting worse. He has been using his nebulizer typically once or twice a day. The mucus is whitish in color. Sometimes difficult to expectorate. He will take a specimen cup with him to his home so he can try to provide a specimen for culture. In the meantime will place him on some prednisone and will not budesonide via nebulizer. Daliresp will potentially be a good option for him. However, he is concerned about potential cost with medications. 10/14/2021 the patient is here for a pulmonary follow-up visit. Since we last spoke he did undergo carpal tunnel surgery. Unfortunately resulting significant swelling of his right hand and arm. To the point that he was not able to use his nebulizer because of the fact that he could not use the right hand. He has continue to uses Trelegy inhaler intermittently. He has been having increasing wheezing unfortunately. He continues on the azithromycin 3 times a week. No significant improvement. He did get a prescription recently therefore he will finish off when he has an stop the azithromycin 3 times a week this time. Because of the patient's wheezing I will going to put him on a low-dose prednisone to see if we can improve his symptoms in the next week or 2. Regards the Daliresp, on concerned about the side effect specially with his inability to around. 04/15/2022 the patient is here for a pulmonary follow-up visit. The patient will be undergoing a hip surgery soon. He is going to require total hip replacement. This will be done at [facility]. In the meantime is respiratory status is at baseline. He does have some shortness breath with activity mild to moderate with severity. The patient does use a cane and he does get some fatigue just because is also dealing with this musculoskeletal issues. Today need to get an x-ray in therefore we did get him a wheelchair for the duration of the ambulation. He does continue to uses inhalers as prescribed. He does have Trelegy that he uses in the morning and then a rescue inhaler to use as needed. The patient is complaining of some chest discomfort coming and going. Currently he does not have it. As far as his respiratory exam is benign. He does not have any reproducible discomfort. Will have him get a chest x-ray to make sure that all is well. He will be following up with Cardiology soon. He does have a cardiac history. The patient is aware that if the chest pain returns of her worsens he is to go to the ED or seek medical attention. 10/15/2022 the patient is here for pulmonary follow-up visit. Since we last spoke he did develop a respiratory illness in a COPD exacerbation. He sized primary care doctor who placed on prednisone and a course of Z-Edward. The patient improved although he has symptoms then started reoccurring. Does have increased chest congestion. He had been on azithromycin in the past and that was helpful for him. Therefore will which started for another 4-8 weeks to see if we can get his lungs a little bit more clear. The patient has been using his respiratory therapy as prescribed. 12/23/2022 the patient is here for pulmonary sick visit. He is having worsening chest discomfort shortness of breath and cough. He has been using his inhalers with only partial resolution of the symptoms. He is also concerned because he feels very weak. Today in the office was noted to have significant wheezing chest tightness. His also cough is productive at times. The patient was given a treatment with DuoNeb and he did feel better. He did have a brief 6 minute walk test the patient did desaturate very quickly to 88% with just a few steps. He was placed on 2 L pulse and did well maintaining a pulse ox 92%. Therefore he needs to start oxygen at this time. Patient also will undergo blood work and a chest x-ray at this time. He will start antibiotics and prednisone. If the patient is no better or if he worsens he definitely has to go to the hospital for further care. In the meantime is a follow-up in a couple weeks. [facility] Medical History (Updated 12/23/22 @ 20:00 by Ac Hamilton MD) BPH (benign prostatic hyperplasia) COPD (chronic obstructive pulmonary disease) HTN (hypertension) Inferior AK Pneumonia Pneumonitis Pre-op chest exam Pulmonary nodules Surgical History History of carpal tunnel surgery of right wrist Hx of cardiac cath Family History (Updated 05/05/22 @ 13:34 by ISELA Church) Mother CAD (coronary artery disease) Heart attack Father HTN (hypertension) Brother H/O heart bypass surgery Sister Rayray Social History Household Members: Spouse Housing: House Do you presently have visiting nurse or other home services: No Alcohol intake: never Patient Tobacco Use Status: Former Tobacco user Tobacco use type: Cigarette Advance Directives Date on File: 06/25/20 service: No Current occupational status: retired Review of Systems Const Reports fatigue, Reports malaise and Denies night sweats ENT Denies change in voice, Denies lip swelling, Denies mouth pain, Reports nasal congestion, Reports nasal discharge and Denies tongue swelling Card Reports chest pain, Reports dyspnea and Reports dyspnea on exertion Resp Reports change in phlegm color, Reports chest congestion, Reports cough, Denies hemoptysis, Denies excessive phlegm production, Reports dyspnea, Reports dyspnea on exertion and Reports wheezing GI Denies abdominal pain Musc Reports no additional complaints, Reports as per HPI, Reports abnormal gait, Reports arthralgias, Reports joint swelling and Reports muscle weakness Neuro Reports as per HPI and Reports abnormal gait Psych Denies no additional complaints Endo Reports fatigue Marco/Lymph Denies easy bleeding and Denies lymphadenopathy Aller/Immun Denies lip swelling, Denies tongue swelling and Reports wheezing Physical Exam Vital Signs: Last Vital Signs Pulse 83 12/23/22 13:47 Pulse Ox 88 L 12/23/22 13:47 Oxygen Delivery Method Room Air 12/23/22 13:47 BMI result Body Mass Index 33.8 Const General: alert HEENT Head: Yes normocephalic Neck Neck: Yes normal visual inspection, Yes full ROM and Yes no lymphadenopathy Chest Chest palpation & inspection: normal inspection of the chest Resp Effort & Inspection: tachypneic and prolonged expiratory phase Auscultation: no rhonchi, wheezes and diminished lung sounds Cardio Rate: regular rate Rhythm: regular rhythm Heart sounds: S1 normal heart sound present and S2 normal heart sound present GI Palpation (GI): Soft to palpation and Tenderness to palpation present (GI) in the epigastrum Auscultation: normal bowel sounds Skin General skin exam: rashes and/or lesions noted Office Procedures 6 Minute Walk Time:: 19:58 SPO2 % at rest: 92 Pulse at rest: 89 SPO2 % during excercise: 88 Pulse during excercise: 98 Distance in yards walked: 50 Shoshana Score: 7 Supplemental Oxygen: The patient was very unsteady on his feet. Quickly desaturated on RA when he stood up and took a few steps with his cane and my assistance. He was placed on 2 L and pox 2l 92% with activity. [id number] - 6 Minute Walk Nebulizer Treatment Nebulizer Treatment [id number] RX initial, or Nebulizer Subsequent Treatment Office Meds ipratropium-albuterol 0.5 mg-3 mg(2.5 mg base)/3 mL Performing Provider: Ac Hamilton MD Administered by: Christine Siddiqi LPN on 12/23/22 14:32 Dose Route Admin Location Lot Number Expiration Date NDC Supervisor [employer] 3 mL inhalation [id number] 05/24/24 5308-2227-98 [employer] Assessment & Plan Assessment & Plan (1) Dyspnea on exertion: Code(s): R06.00 - Dyspnea, unspecified (2) COPD (chronic obstructive pulmonary disease): Comment: severe COPD Code(s): J44.9 - Chronic obstructive pulmonary disease, unspecified Qualifiers: COPD type: chronic bronchitis Chronic bronchitis type: mucopurulent Qualified Code(s): J41.1 - Mucopurulent chronic bronchitis (3) Pneumonitis: Code(s): J18.9 - Pneumonia, unspecified organism (4) Acute and chronic respiratory failure: Code(s): J96.20 - Acute and chronic respiratory failure, unspecified whether with hypoxia or hypercapnia Plan start Prednione start Doxycycline CXR bloodwork start oxygen 2L/pulse with activity with B cylinders If no better or worsens he needs to go to the ed Continue Trelegy inhaler 200 mcg CANDELARIA as needed Needs to be evaluated if CP reoccurs F/U 2-3 weeks Orders: Orders Basic Metabolic Panel Today R06.00 - Dyspnea, unspecified Venous Blood Gas Today R06.00 - Dyspnea, unspecified Complete Blood Count Auto Diff Today R06.00 - Dyspnea, unspecified Erythrocyte Sedimentation Rate Today R06.00 - Dyspnea, unspecified XR chest 2V Today R06.00 - Dyspnea, unspecified Troponin-I High Sensitivity Today R06.00 - Dyspnea, unspecified AMB Nebulizer Treatment Today J44.9 - Chronic obstructive pulmonary disease, unspecified Medications: New prednisone PO daily; Take 2 tabs daily x 5 days, then 1 tablet daily x 5 days 10 days 15 tabs 0RF doxycycline hyclate 100 mg PO BID 10 days 20 caps 0RF Coding Level of Care Code Est Pt Level 5 (46086) Diagnoses Dyspnea on exertion R06.00 COPD (chronic obstructive pulmonary disease) J41.1 COPD type: chronic bronchitis Chronic bronchitis type: mucopurulent Pneumonitis J18.9 Acute and chronic respiratory failure J96.20 CPT Codes Coding ([id number]) Nebulizer Treatment - Nebulizer Treatment, initial or subsequent: [id number] RX initial, or Nebulizer Subsequent Treatment ([id number]) Time Spent (min) 50
[2022-12-23 19:59] VITALS: PULSE 89; O2SAT 92
== END 2022-12-23 14:32 | disposition home or self-care (01) ==
PROVIDERS: PCP Internal Medicine; Visit Provider Hospitalist
DX: J41.1 Mucopurulent chronic bronchitis (principal); J18.9 Pneumonia, unspecified organism; J96.20 Acute and chronic respiratory failure, unspecified whether with hypoxia or hypercapnia; J44.9 Chronic obstructive pulmonary disease, unspecified
CPT/HCPCS: 94618; 99215

== ENCOUNTER 2022-12-23 13:16 | Outpatient (REF) | payer MEDICARE, SELFPAY ==
--- NOTE | ~2022-12-23 | XR_ITS ---
EXAMINATION: XR CHEST CLINICAL INFORMATION: Dyspnea. COMPARISON: Radiographs dated 10/24/2022. TECHNIQUE: Frontal and lateral views of the chest were obtained. FINDINGS: The heart, great vessels, pulmonary vasculature and mediastinum are stable. There is mild elevation of the right hemidiaphragm. There is pulmonary vascular congestion, without overt pulmonary edema. No infiltrate or pneumothorax is seen. There is slight blunting of the bilateral costophrenic angles, consistent with minimal effusions. There is no acute osseous abnormality. XR/XR chest 2V IMPRESSION: 1. There is pulmonary vascular congestion, without overt pulmonary edema. 2. No focal infiltrate is seen. 3. There are minimal bilateral pleural effusions.
[2022-12-23 14:38] LABS: Venous Blood Gas Refer to POC result
[2022-12-23 14:42] LABS: VBG pH 7.41 (7.32-7.43)
[2022-12-23 14:43] LABS: VBG Base Excess 0.8 mmol/L; VBG HCO3 25 mmol/L (22-26); VBG pCO2 39 mmHg; VBG pO2 66 mmHg
[2022-12-23 15:01] LABS: Basophils Absolute Auto 0.1 X10*3/uL (0.0-0.2); Basophils Percent Auto 0.5 % (0-2); Eosinophils Absolute Auto 0.1 X10*3/uL (0.0-0.4); Eosinophils Percent Auto 1.2 % (0-4); Hematocrit 45.7 % (42.0-52.0); Hemoglobin 14.4 g/dl (14.0-18.0); Imm Gran Abs Auto 0.05 X10*3/uL (0.00-0.03); Imm Gran Pct Auto 0.4 % (0.0-0.4); Lymphocytes Percent Auto 17.2 % (20-40); MANUAL DIFF FLAG SCAN; Mean Corpuscular HGB Conc 31.5 g/dl (31.0-36.0); Mean Corpuscular Hemoglobin 28.5 pg (27.0-33.0); Mean Corpuscular Volume 90.5 fL (80.0-98.0); Mean Platelet Volume 9.6 fL (9.4-12.4); Monocytes Absolute Auto 1.8 X10*3/uL (0.1-1.2); Monocytes Percent Auto 16.1 % (2-11); Neutrophils Absolute Auto 7.3 x10*3/uL (2.0-8.3); Neutrophils Percent Auto 64.6 % (45-73); Platelet Count 146 X10*3/uL (160-400); Red Blood Count 5.05 X10*6/uL (4.60-5.80); Red Cell Distribution Width 13.7 % (11.0-16.0); SCAN SMEAR FLAG 1; White Blood Count 11.3 X10*3/uL (4.8-10.8)
[2022-12-23 15:34] LABS: Troponin-I High Sensitivity 39.5 ng/L (<3.5-35.0)
[2022-12-23 15:37] LABS: Anion Gap 16 (12-20); Blood Urea Nitrogen 22 mg/dL (9-16); Calcium 9.5 mg/dL (8.4-10.2); Carbon Dioxide 23 mmol/L (22-29); Chloride 105 mmol/L (96-108); Estimated Glomerular Filt Rate 53; Glucose Random 109 mg/dL (60-115); Sodium 140 mmol/L (135-145)
[2022-12-23 15:44] LABS: Erythrocyte Sedimentation Rate 67 MM/HR (0-15)
[2022-12-23 16:37] LABS: SLIDE REVIEW VERIFIED
== END 2022-12-23 13:17 | disposition home or self-care (01) ==
LOC: HO.LAB 13:16
PROVIDERS: PCP Internal Medicine; Visit Provider Hospitalist
DX: R06.00 Dyspnea, unspecified (principal); J41.1 Mucopurulent chronic bronchitis; J18.9 Pneumonia, unspecified organism; J96.20 Acute and chronic respiratory failure, unspecified whether with hypoxia or hypercapnia
CPT/HCPCS: 36415; 71046; 80048; 82803; 84484; 85025; 85652; 94618; 94640; 99212

== ENCOUNTER 2023-01-08 10:47 | Outpatient (AMB) | payer MEDICARE, SELFPAY ==
[2023-01-08 10:54] VITALS: PULSE 83; O2SAT 92; BMI 33.5
--- NOTE | 2023-01-08 10:54 | A.OFFVIS_ITS ---
Intake Vital Signs 01/08/23 10:54 Height 5 ft 2 in Weight 183 lb BMI 33.5 Pulse 83 Pulse Source Pulse Oximeter Pulse Oximetry (%) 92 Oxygen Delivery Method Room Air Intake Visit Reasons: Prod cough, wheezing, back pain Instrumentation And Controls Technician Required: No Allergies ibuprofen Allergy (Mild, Verified 01/08/23 10:56) Gastrointestinal Upset HPI HPI Comments History of Present Illness Details 82 year-old gentleman who is here for follow-up. He has background history of coronary artery disease. He presented to us at [facility] with mild NSTEMI in the setting of COPD exacerbation with ST depressions. After discussion he was taken for cardiac catheterization which showed SOLAR CONSULTANT of t he right coronary artery with [id number] collaterals and ostial diagonal stenosis. We decided to medically manage him. He has advanced lung disease due to COPD. He is saying he is doing better with inhalers and medications. He has bilateral lower extremity edema. He also has some shoulder issues and will require surgery in 1 month. He is complaining that he has been off balance a lot and tends to fall to the right side of the body. 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 He is saying he consistently falls right-sided. He has been using a cane to walk. 02/12/2021 the patient is here for a pulmonary follow-up visit. Since we last spoke the patient seems to be doing better from a respiratory status. Starting the nebulized therapy has helped him. He is less winded. He also continues seasonal mycin antibiotics 3 times a week. I am hopeful that once he completes this prescription he does not need to renew it. Will try to simplify his respiratory regimen. He is no longer requiring any prednisone. Patient has been having significant dizziness and he did undergo an MRI of the brain he is waiting for the results. He is also plan to undergo surgery for carpal tunnel and also for his shoulder issues. It is more respiratory status the patient is able to go ahead and consent for anesthesia and for his surgeries. 08/07/2021 the patient is here for a pulmonary follow-up visit. He continues to have significant chest congestion productive coughing wheezing. Moderate severity. He has been using the Trelegy inhaler in addition to that he has also been azithromycin 3 times a week. However, slowly been partially helpful. He recently also had a cardiac stress test which was abnormal with reversible changes. Therefore he was optimized on his cardioprotective medications. His symptoms have been getting worse. He has been using his nebulizer typically once or twice a day. The mucus is whitish in color. Sometimes difficult to expectorate. He will take a specimen cup with him to his home so he can try to provide a specimen for culture. In the meantime will place him on some prednisone and will not budesonide via nebulizer. Daliresp will potentially be a good option for him. However, he is concerned about potential cost with medications. 10/14/2021 the patient is here for a pulmonary follow-up visit. Since we last spoke he did undergo carpal tunnel surgery. Unfortunately resulting significant swelling of his right hand and arm. To the point that he was not able to use his nebulizer because of the fact that he could not use the right hand. He has continue to uses Trelegy inhaler intermittently. He has been having increasing wheezing unfortunately. He continues on the azithromycin 3 times a week. No significant improvement. He did get a prescription recently therefore he will finish off when he has an stop the azithromycin 3 times a week this time. Because of the patient's wheezing I will going to put him on a low-dose prednisone to see if we can improve his symptoms in the next week or 2. Regards the Daliresp, on concerned about the side effect specially with his inability to around. 04/15/2022 the patient is here for a pulmonary follow-up visit. The patient will be undergoing a hip surgery soon. He is going to require total hip replacement. This will be done at [facility]. In the meantime is respiratory status is at baseline. He does have some shortness breath with activity mild to moderate with severity. The patient does use a cane and he does get some fatig ue just because is also dealing with this musculoskeletal issues. Today need to get an x-ray in therefore we did get him a wheelchair for the duration of the ambulation. He does continue to uses inhalers as prescribed. He does have Trelegy that he uses in the morning and then a rescue inhaler to use as needed. The patient is complaining of some chest discomfort coming and going. Currently he does not have it. As far as his respiratory exam is benign. He does not have any reproducible discomfort. Will have him get a chest x-ray to make sure that all is well. He will be following up with Cardiology soon. He does have a cardiac history. The patient is aware that if the chest pain returns of her worsens he is to go to the ED or seek medical attention. 10/15/2022 the patient is here for pulmonary follow-up visit. Since we last spoke he did develop a respiratory illness in a COPD exacerbation. He sized primary care doctor who placed on prednisone and a course of Z-Edward. The patient improved although he has symptoms then started reoccurring. Does have increased chest congestion. He had been on azithromycin in the past and that was helpful for him. Therefore will which started for another 4-8 weeks to see if we can get his lungs a little bit more clear. The patient has been using his respiratory therapy as prescribed. 12/23/2022 the patient is here for pulmonary sick visit. He is having worsening chest discomfort shortness of breath and cough. He has been using his inhalers with only partial resolution of the symptoms. He is also concerned because he feels very weak. Today in the office was noted to have significant wheezing chest tightness. His also cough is productive at times. The patient was given a treatment with DuoNeb and he did feel better. He did have a brief 6 minute walk test the patient did desaturate very quickly to 88% with just a few steps. He was placed on 2 L pulse and did well maintaining a pulse ox 92%. Therefore he needs to start oxygen at this time. Patient also will undergo blood work and a chest x-ray at this time. He will start antibiotics and prednisone. If the patient is no better or if he worsens he definitely has to go to the hospital for further care. In the meantime is a follow-up in a couple weeks. 01/08/2023 the patient is here for pulmonary follow-up visit. During the last visit he was fairly sick he was started on oxygen. The patient completed the prednisone and now the antibiotics. Now complaining of significant sore throat. Feels very dry. She has significant thrush this time. May have some Dayna esophagitis since he has also some discomfort swallowing. Will go ahead and start him on fluconazole. Since we last spoke the patient did have blood work including an elevated troponin I. I did call him and told him to go to the ER which she did. Not clear which ER he went to. 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 For the most part the cardiac issues are likely secondary to the demand from his respiratory process. His chest x-ray also looked that and was fairly unremarkable. The patient has been using the oxygen with good effect. Also been using the Trelegy. It is also feeling better overall. [facility] Medical History (Updated 01/08/23 @ 12:55 by Ac Hamilton MD) BPH (benign prostatic hyperplasia) COPD (chronic obstructive pulmonary disease) HTN (hypertension) Inferior IA Pneumonia Pneumonitis Pre-op chest exam Pulmonary nodules Surgical History History of carpal tunnel surgery of right wrist Hx of cardiac cath Family History (Updated 05/05/22 @ 13:34 by ISELA Church) Mother CAD (coronary artery disease) Heart attack Father HTN (hypertension) Brother H/O heart bypass surgery Sister Afib Social History Household Members: Spouse Housing: House Do you presently have visiting nurse or other home services: No Alcohol intake: never Patient Tobacco Use Status: Former Tobacco user Tobacco use type: Cigarette Advance Directives Date on File: 06/25/20 service: No Current occupational status: retired Review of Systems Const Reports fatigue, Denies malaise and Denies night sweats ENT Denies change in voice, Denies lip swelling, Denies mouth pain, Denies nasal congestion, Denies nasal discharge and Denies tongue swelling Card Denies chest pain, Denies dyspnea and Reports dyspnea on exertion Resp Denies change in phlegm color, Denies chest congestion, Reports cough, Denies hemoptysis, Denies excessive phlegm production, Denies dyspnea, Reports dyspnea on exertion and Denies wheezing GI Denies abdominal pain Musc Reports no additional complaints, Reports as per HPI, Reports abnormal gait, Reports arthralgias, Reports joint swelling and Reports muscle weakness Neuro Reports as per HPI and Reports abnormal gait Psych Denies no additional complaints Endo Reports fatigue Marco/Lymph Denies easy bleeding and Denies lymphadenopathy Aller/Immun Denies lip swelling, Denies tongue swelling and Denies wheezing Physical Exam Vital Signs: Last Vital Signs Pulse 83 01/08/23 10:54 Pulse Ox 92 01/08/23 10:54 Oxygen Delivery Method Room Air 01/08/23 10:54 BMI result Body Mass Index 33.5 Const General: alert HEENT Head: Yes normocephalic Neck Neck: Yes normal visual inspection, Yes full ROM and Yes no lymphadenopathy Chest Chest palpation & inspection: normal inspection of the chest Resp Effort & Inspection: normal respiratory effort and No prolonged expiratory phase Auscultation: no rhonchi, no wheezes and diminished lung sounds Cardio Rate: regular rate Rhythm: regular rhythm Heart sounds: S1 normal heart sound present and S2 normal heart sound present GI Palpation (GI): Soft to palpation and Tenderness to palpation present (GI) in the epigastrum Auscultation: normal bowel sounds Skin General skin exam: rashes and/or lesions noted Extrem General: Yes no clubbing, cyanosis or edema Assessment & Plan Assessment & Plan (1) Dyspnea on exertion: Code(s): R06.00 - Dyspnea, unspecified (2) COPD (chronic obstructive pulmonary disease): Comment: severe COPD Code(s): J44.9 - Chronic obstructive pulmonary disease, unspecified Qualifiers: COPD type: chronic bronchitis Chronic bronchitis type: mucopurulent Qualified Code(s): J41.1 - Mucopurulent chronic bronchitis (3) Pneumonitis: Code(s): J18.9 - Pneumonia, unspecified organism (4) Acute and chronic respiratory failure: Code(s): J96.20 - Acute and chronic respiratory failure, unspecified whether with hypoxia or hypercapnia (5) Thrush: Code(s): B37.0 - Candidal stomatitis Plan start fluconazole x 10 days continue oxygen 2L/pulse with activity with B cylinders Continue Trelegy inhaler 200 mcg CANDELARIA as needed F/U with Cardiology F/U 2-3 months Medications: New fluconazole 100 mg PO DAILY 10 days 10 tabs 0RF Coding Level of Care Code Est Pt Level 4 (36886) Diagnoses Dyspnea on exertion R06.00 COPD (chronic obstructive pulmonary disease) J41.1 COPD type: chronic bronchitis Chronic bronchitis type: mucopurulent Pneumonitis J18.9 Acute and chronic respiratory failure J96.20 Thrush B37.0 Time Spent (min) 18
== END 2023-01-08 11:26 | disposition home or self-care (01) ==
PROVIDERS: PCP Internal Medicine; Visit Provider Hospitalist
DX: J41.1 Mucopurulent chronic bronchitis (principal); J18.9 Pneumonia, unspecified organism; J96.20 Acute and chronic respiratory failure, unspecified whether with hypoxia or hypercapnia; B37.0 Candidal stomatitis
CPT/HCPCS: 99214

== ENCOUNTER → 2023-01-08 10:47 | Outpatient (BNVA) | payer MEDICARE, SELFPAY | PROVIDERS: PCP Internal Medicine; Visit Provider Hospitalist | DX: J41.1 Mucopurulent chronic bronchitis (principal); R06.00 Dyspnea, unspecified; J18.9 Pneumonia, unspecified organism; J96.20 Acute and chronic respiratory failure, unspecified whether with hypoxia or hypercapnia; B37.0 Candidal stomatitis | CPT/HCPCS: 99212 ==

== ENCOUNTER 2023-04-10 13:07 | Outpatient (AMB) | payer MEDICARE, SELFPAY ==
[2023-04-10 13:19] VITALS: PULSE 89; O2SAT 90; BMI 34.6
--- NOTE | 2023-04-10 13:19 | A.OFFVIS_ITS ---
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 He has background history of coronary artery disease. He presented to us at [facility] with mild NSTEMI in the setting of COPD exacerbation with ST depressions. 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 We decided to medically manage him. He has advanced lung disease due to COPD. He is saying he is doing better with inhalers and medications. He has bilateral lower extremity edema. He also has some shoulder issues and will require surgery in 1 month. He is complaining that he has been off balance a lot and tends to fall to the right side of the body. 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 He is saying he consistently falls right-sided. He has been using a cane to walk. 02/12/2021 the patient is here for a pul monary follow-up visit. Since we last spoke the patient seems to be doing better from a respiratory status. Starting the nebulized therapy has helped him. He is less winded. He also continues seasonal mycin antibiotics 3 times a week. I am hopeful that once he completes this prescription he does not need to renew it. Will try to simplify his respiratory regimen. He is no longer requiring any prednisone. Patient has been having significant dizziness and he did undergo an MRI of the brain he is waiting for the results. He is also plan to undergo surgery for carpal tunnel and also for his shoulder issues. It is more respiratory status the patient is able to go ahead and consent for anesthesia and for his surgeries. 08/07/2021 the patient is here for a pulmonary follow-up visit. He continues to have significant chest congestion productive coughing wheezing. Moderate severity. He has been using the Trelegy inhaler in addition to that he has also been azithromycin 3 times a week. However, slowly been partially helpful. He recently also had a cardiac stress test which was abnormal with reversible changes. Therefore he was optimized on his cardioprotective medications. His symptoms have been getting worse. He has been using his nebulizer typically once or twice a day. The mucus is whitish in color. Sometimes difficult to expectorate. He will take a specimen cup with him to his home so he can try to provide a specimen for culture. In the meantime will place him on some prednisone and will not budesonide via nebulizer. Daliresp will potentially be a good option for him. However, he is concerned about potential cost with medications. 10/14/2021 the patient is here for a pulmonary follow-up visit. Since we last spoke he did undergo carpal tunnel surgery. Unfortunately resulting significant swelling of his right hand and arm. To the point that he was not able to use his nebulizer because of the fact that he could not use the right hand. He has continue to uses Trelegy inhaler intermittently. He has been having increasing wheezing unfortunately. He continues on the azithromycin 3 times a week. No significant improvement. He did get a prescription recently therefore he will finish off when he has an stop the azithromycin 3 times a week this time. Because of the patient's wheezing I will going to put him on a low-dose prednisone to see if we can improve his symptoms in the next week or 2. Regards the Daliresp, on concerned about the side effect specially with his inability to around. 04/15/2022 the patient is here for a pulmonary follow-up visit. The patient will be undergoing a hip surgery soon. He is going to require total hip replacement. This will be done at [facility]. In the meantime is respiratory status is at baseline. He does have some shortness breath with activity mild to moderate with severity. The patient does use a cane and he does get some fatigue just because is also dealing with this musculoskeletal issues. Today need to get an x-ray in therefore we did get him a wheelchair for the duration of the ambulation. He does continue to uses inhalers as prescribed. He does have Trelegy that he uses in the morning and then a rescue inhaler to use as needed. The patient is complaining of some chest discomfort coming and going. Currently he does not have it. As far as his respiratory exam is benign. He does not have any reproducible discomfort. Will have him get a chest x-ray to make sure that all is well. He will be following up with Cardiology soon. He does have a cardiac history. The patient is aware that if the chest pain returns of her worsens he is to go to the ED or seek medical attention. 10/15/2022 the patient is here for pulmon [place] follow-up visit. Since we last spoke he did develop a respiratory illness in a COPD exacerbation. He sized primary care doctor who placed on prednisone and a course of Z-Edward. The patient improved although he has symptoms then started reoccurring. Does have increased chest congestion. He had been on azithromycin in the past and that was helpful for him. Therefore will which started for another 4-8 weeks to see if we can get his lungs a little bit more clear. The patient has been using his respiratory therapy as prescribed. 12/23/2022 the patient is here for pulmona ry sick visit. He is having worsening chest discomfort shortness of breath and cough. He has been using his inhalers with only partial resolution of the symptoms. He is also concerned because he feels very weak. Today in the office was noted to have significant wheezing chest tightness. His also cough is productive at times. The patient was given a treatment with DuoNeb and he did feel better. He did have a brief 6 minute walk test the patient did desaturate very quickly to 88% with just a few steps. He was placed on 2 L pulse and did well maintaining a pulse ox 92%. Therefore he needs to start oxygen at this time. Patient also will undergo blood work and a chest x-ray at this time. He will start antibiotics and prednisone. If the patient is no better or if he worsens he definitely has to go to the hospital for further care. In the meantime is a follow-up in a couple weeks. 01/08/2023 the patient is here for pulmon [place] follow-up visit. During the last visit he was fairly sick he was started on oxygen. The patient completed the prednisone and now the antibiotics. Now complaining of significant sore throat. Feels very dry. She has significant thrush this time. May have some Dayna esophagitis since he has also some discomfort swallowing. Will go ahead and start him on fluconazole. Since we last spoke the patient did have blood work including an elevated troponin I. I did call him and told him to go to the ER which she did. Not clear which ER he went to. 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 For the most part the cardiac issues are likely secondary to the demand from his respiratory process. His chest x-ray also looked that and was fairly unremarkable. The patient has been using the oxygen with good effect. Also been using the Trelegy. It is also feeling better overall. 04/10/2023 the patient is here for a pulmonary follow-up visit. Has not been complaining of worsening shortness of breath and chest tightness. He has been using his in haler once or twice a day. Only with partial improvement of his symptoms. He has been using his oxygen more regularly. On examination he does have increased wheezing chest tightness along with a prolonged expiratory phase. He is already on Trelegy. He is already tried azithromycin. I do believe Daliresp will be a good option for him. Although we did talk about the GI symptoms that can occur. The patient can always start small dose and see to take it slowly titrating it up to minimize on the adverse effects. Patient also will need some prednisone to help him with this amount of wheezing. If the patient is no better after the prednisone or if he can not tolerate the Daliresp she should call the office for an earlier assessment otherwise will follow-up in 3-4 months. [facility] Medical History (Updated 04/12/23 @ 22:20 by Ac Hamilton MD) Chronic respiratory failure Pre-op chest exam Inferior DC Pneumonitis Pulmonary nodules BPH (benign prostatic hyperplasia) COPD (chronic obstructive pulmonary disease) Pneumonia HTN (hypertension) Surgical History History of carpal tunnel surgery of right wrist Hx of cardiac cath Family History (Updated 05/05/22 @ 13:34 by ISELA Church) Mother CAD (coronary artery disease) Heart attack Father HTN (hypertension) Brother H/O heart bypass surgery Sister Afib Social History Household Members: Spouse Housing: House Do you presently have visiting nurse or other home services: No Alcohol intake: never Patient Tobacco Use Status: Former Tobacco user Tobacco use type: Cigarette Advance Directives Date on File: 06/25/20 service: No Current occupational status: retired Review of Systems Const Reports fatigue, Denies malaise and Denies night sweats ENT Denies change in voice, Denies lip swelling, Denies mouth pain, Denies nasal congestion, Denies nasal discharge and Denies tongue swelling Card Denies chest pain, Reports dyspnea and Reports dyspnea on exertion Resp Denies change in phlegm color, Denies chest congestion, Reports cough, Denies hemoptysis, Denies excessive phlegm production, Reports dyspnea, Reports dyspnea on exertion and Reports wheezing GI Denies abdominal pain Musc Reports no additional complaints, Reports as per HPI, Reports abnormal gait, Reports arthralgias, Reports joint swelling and Reports muscle weakness Neuro Reports as per HPI and Reports abnormal gait Psych Denies no additional complaints and Reports other (hyper-sexual) Endo Reports fatigue Marco/Lymph Denies easy bleeding and Denies lymphadenopathy Aller/Immun Denies lip swelling, Denies tongue swelling and Reports wheezing Physical Exam Vital Signs: Last Vital Signs Pulse 89 04/10/23 13:19 Pulse Ox 90 L 04/10/23 13:19 Oxygen Delivery Method Room Air 04/10/23 13:19 BMI result Body Mass Index 34.6 Const General: alert HEENT Head: Yes normocephalic Neck Neck: Yes normal visual inspection, Yes full ROM and Yes no lymphadenopathy Chest Chest palpation & inspection: normal inspection of the chest Resp Effort & Inspection: normal respiratory effort and prolonged expiratory phase Auscultation: no rhonchi, wheezes and diminished lung sounds Cardio Rate: regular rate Rhythm: regular rhythm Heart sounds: S1 normal heart sound present and S2 normal heart sound present GI Palpation (GI): Soft to palpation and Tenderness to palpation present (GI) in the epigastrum Auscultation: normal bowel sounds Skin General skin exam: rashes and/or lesions noted Extrem General: Yes no clubbing, cyanosis or edema Assessment & Plan Assessment & Plan (1) Dyspnea on exertion: Code(s): R06.00 - Dyspnea, unspecified (2) COPD (chronic obstructive pulmonary disease): Comment: severe COPD Code(s): J44.9 - Chronic obstructive pulmonary disease, unspecified Qualifiers: COPD type: COPD with acute exacerbation Qualified Code(s): J44.1 - Chronic obstructive pulmonary disease with (acute) exacerbation (3) Pneumonitis: Code(s): J18.9 - Pneumonia, unspecified organism (4) Chronic respiratory failure: Code(s): J96.10 - Chronic respiratory failure, unspecified whether with hypoxia or hypercapnia Qualifiers: Respiratory failure complication: hypoxia Qualified Code(s): J96.11 - Chronic respiratory failure with hypoxia Plan continue oxygen 2L/pulse with activity with B cylinders Continue Trelegy inhaler 200 mcg start Dalirep start prednisone taper CANDELARIA as needed F/U with Cardiology F/U 2-3 months Medications: New roflumilast 250 mcg PO DAILY 30 days 30 tabs 11RF J44.9 - Chronic obstructive pulmonary disease, unspecified prednisone PO daily; Take 2 tabs daily x 5 days, then 1 tablet daily x 5 days 10 days 15 tabs 0RF Coding Level of Care Code Est Pt Level 4 (11050) Diagnoses Dyspnea on exertion R06.00 Chronic obstructive pulmonary disease with acute exacerbation J44.1 COPD type: COPD with acute exacerbation Pneumonitis J18.9 Chronic respiratory failure with hypoxia J96.11 Respiratory failure complication: hypoxia Time Spent (min) 16
== END 2023-04-10 13:34 | disposition home or self-care (01) ==
PROVIDERS: PCP Internal Medicine; Visit Provider Hospitalist
DX: R06.00 Dyspnea, unspecified (principal); J44.1 Chronic obstructive pulmonary disease with (acute) exacerbation; J18.9 Pneumonia, unspecified organism; J96.11 Chronic respiratory failure with hypoxia
CPT/HCPCS: 99214

== ENCOUNTER → 2023-04-10 13:07 | Outpatient (BNVA) | payer MEDICARE, SELFPAY | PROVIDERS: PCP Internal Medicine; Visit Provider Hospitalist | DX: J44.1 Chronic obstructive pulmonary disease with (acute) exacerbation (principal); J18.9 Pneumonia, unspecified organism; J96.11 Chronic respiratory failure with hypoxia; R06.00 Dyspnea, unspecified | CPT/HCPCS: 99212 ==

== ENCOUNTER 2023-07-06 09:08 | Emergency (ER) | payer MEDICARE, OTHER, SELFPAY ==
[2023-07-06] VITALS (7 sets, daily range): BP systolic 111–193; BP diastolic 56–88; PULSE 64–80; RESP 14–19; TEMP 36.4–36.9; O2SAT 94–97; BMI 32.4
--- NOTE | ~2023-07-06 | XR_ITS ---
EXAMINATION: XR PELVIS/HIP LEFT XR LEFT TIBIA/FIBULA XR LEFT ANKLE CLINICAL INFORMATION: Pain after fall COMPARISON: Radiographs of the ankle from 03/05/2021. CT images of pelvis from 02/22/2021. TECHNIQUE: Left hip, 2 views Pelvis, AP view Left tibia-fibula, 2 views Left ankle, 3 views FINDINGS: Pelvis: Degenerated lumbar spine is partially included in [id number]. No evidence of loosening of posterior spinal fusion hardware at L5-S1. Pelvic bones have normal alignment. At the right hip, the prosthetic femoral head is well-positioned within the acetabular cup. No osteolysis or fracture around the hardware. At the left hip, the prosthetic femoral head is well centered within the acetabular cup which exhibits normal lateral version. There is no abnormal lucency or fracture around the femoral stem. An old focus of heterotopic ossification projects from the anterior inferior iliac spine. Left tibia-fibula: Chondrocalcinosis of menisci. Knee joint spaces are maintained. Bones have normal alignment. No knee joint effusion. A nonaggressive lucency of approximately 1.2 cm in length in the distal tibial diaphysis is very likely benign; this is stable compared to 03/05/2021. There are no aggressive osseous lesions. There is edema/swelling of subcutaneous tissues of the leg. No soft tissue gas. Left ankle: The talar dome is well-positioned within the intact mortise. The talocrural joint space and syndesmotic space are normal. No evidence of acute fracture or subluxation. There is soft tissue swelling/edema around the ankle and within the leg. No radiopaque foreign body. There are atherosclerotic calcifications of the posterior tibial and dorsalis pedis arteries. XR/XR tibia fibula LT 2V IMPRESSION: * No evidence of loosening of components of the total hip arthroplasties. No fracture or malalignment at either hip. * No acute osseous injury in the left lower extremity or ankle. * There is diffuse edema of the subcutaneous tissues of the lower leg and ankle.
--- NOTE | ~2023-07-06 | CT_ITS ---
EXAMINATION: CT PELVIS WITHOUT CONTRAST CLINICAL INFORMATION: Fall. Unable to bear weight COMPARISON: 02/22/2021 TECHNIQUE: Helical scanning was performed with submillimeter collimation through the pelvis. Sagittal and coronal multiplanar 2-D reconstructions were obtained. This CT examination was performed using dose optimization techniques as appropriate, variously including the following: *Automated exposure control *Adjustment of mA and/or kV according to patient size (this includes techniques or standardized protocols for targeted exams where dose is matched to indication/reason for exam; i.e. extremities or head) *Use of iterative reconstruction technique DLP: 527 mGy-cm FINDINGS: PELVIS: Metallic artifact limits assessment of the lower pelvis. Visualized bladder is unremarkable. Scattered colonic diverticulosis. Bilateral renal cysts partially visualized with rim calcification seen within the right mid pole cyst similar to the 2020 study. No significant free air or free fluid OSSEOUS STRUCTURES: Bilateral pedicle screw and rods are seen at L4 and S1. The right-sided L4 pedicle screw extends lateral to the vertebral body cortex but similar in appearance to the 2020 study. Degenerative changes in the visualized lumbar spine. 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 Hardware appears be intact with no evidence for periprosthetic fracture or loosening. Degenerative changes in the bilateral sacroiliac joints. I do not appreciate any acute cortical disruption to suggest fracture within the pelvis CT/CT pelvis wo IV con IMPRESSION: Chronic appearing and postoperative changes as described above. I do not appreciate any acute fracture or dislocation.
--- NOTE | ~2023-07-06 | XR_ITS ---
EXAMINATION: XR FOREARM, LEFT CLINICAL INFORMATION: History of fall. COMPARISON: Radiographs of the hand from 02/22/2021 TECHNIQUE: AP and lateral views of the left forearm were obtained. FINDINGS: The radius and ulna are intact. Alignment is maintained at the elbow and wrist. There is no overt elbow joint effusion. There is an olecranon enthesophyte at site of triceps attachment. Bones appear to be diffusely osteopenic. [id number] osteoarthritis of the first carpometacarpal joint. No radiopaque foreign body. XR/XR forearm LT 2V IMPRESSION: No acute fracture or malalignment in the elbow or forearm.
--- NOTE | ~2023-07-06 | XR_ITS ---
EXAMINATION: XR PELVIS/HIP LEFT XR LEFT TIBIA/FIBULA XR LEFT ANKLE CLINICAL INFORMATION: Pain after fall COMPARISON: Radiographs of the ankle from 03/05/2021. CT images of pelvis from 02/22/2021. TECHNIQUE: Left hip, 2 views Pelvis, AP view Left tibia-fibula, 2 views Left ankle, 3 views FINDINGS: Pelvis: Degenerated lumbar spine is partially included in [id number]. No evidence of loosening of posterior spinal fusion hardware at L5-S1. Pelvic bones have normal alignment. At the right hip, the prosthetic femoral head is well-positioned within the acetabular cup. No osteolysis or fracture around the hardware. At the left hip, the prosthetic femoral head is well centered within the acetabular cup which exhibits normal lateral version. There is no abnormal lucency or fracture around the femoral stem. An old focus of heterotopic ossification projects from the anterior inferior iliac spine. Left tibia-fibula: Chondrocalcinosis of menisci. Knee joint spaces are maintained. Bones have normal alignment. No knee joint effusion. A nonaggressive lucency of approximately 1.2 cm in length in the distal tibial diaphysis is very likely benign; this is stable compared to 03/05/2021. There are no aggressive osseous lesions. There is edema/swelling of subcutaneous tissues of the leg. No soft tissue gas. Left ankle: The talar dome is well-positioned within the intact mortise. The talocrural joint space and syndesmotic space are normal. No evidence of acute fracture or subluxation. There is soft tissue swelling/edema around the ankle and within the leg. No radiopaque foreign body. There are atherosclerotic calcifications of the posterior tibial and dorsalis pedis arteries. XR/XR hip LT w PEL1V IMPRESSION: * No evidence of loosening of components of the total hip arthroplasties. No fracture or malalignment at either hip. * No acute osseous injury in the left lower extremity or ankle. * There is diffuse edema of the subcutaneous tissues of the lower leg and ankle.
--- NOTE | ~2023-07-06 | CT_ITS ---
EXAMINATION: CT brain and CT cervical spine without contrast. CLINICAL INDICATION: Fall and tenderness. TECHNIQUE: 5 mm thin axial and reformatted 2 mm thin sagittal and coronal images of brain were obtained. Subsequently 2 mm thin and axial 3 mm thin sagittal and coronal images of cervical spine were obtained. DLP [id number]. This CT examination was performed using dose optimization technique as appropriate, variously including the following: Automated exposure control Adjustment of MA and/or KV according to patient size(this includes techniques or standardized protocols for targeted exams where dose is matched to indication/reason for exam; extremities or head. Use of iterative reconstruction techniques. FINDINGS: Brain: There is no acute intra-axial, extra-axial bleed, masses or midline shift. There is no acute infarction evolution. There is no edema. There are small lacunar infarction right anterior external capsule. The lateral ventricles are symmetrical but moderately enlarged with mild enlargement of the cortical sulci. There is small lacunar infarction in right anterior limb internal capsule. No mass effect. Bone windows reveal no calvarial abnormality. There is no scalp soft tissue abnormality. Bilateral paranasal sinuses and mastoid air cells are well-aerated. Cervical spine: There is mild reversal of cervical lordosis. The craniovertebral junction and the C1-C2 alignment is normal. There is C3, C4, C5 right laminotomy from previous intervention. It is stabilized with a lateral plate at these levels.. There are bilateral C6-C7 and T1 laminar screws with interconnecting rods for posterior fusion. No visible acute fracture, dislocation or subluxation seen. The disc levels from C3-4 through C6-C7 disc levels are fused. There is mild ventral spondylosis. The prevertebral and paravertebral soft tissues are normal. The lung apices are clear CT/CT cervical spine wo IV con IMPRESSION: 1. No acute intracranial process seen. 2. There is no acute fracture, dislocation or subluxation seen in cervical spine. There is mild reversal of cervical lordosis with postsurgical changes as described above. No acute intracranial process
--- NOTE | ~2023-07-06 | XR_ITS ---
EXAMINATION: XR PELVIS/HIP LEFT XR LEFT TIBIA/FIBULA XR LEFT ANKLE CLINICAL INFORMATION: Pain after fall COMPARISON: Radiographs of the ankle from 03/05/2021. CT images of pelvis from 02/22/2021. TECHNIQUE: Left hip, 2 views Pelvis, AP view Left tibia-fibula, 2 views Left ankle, 3 views FINDINGS: Pelvis: Degenerated lumbar spine is partially included in [id number]. No evidence of loosening of posterior spinal fusion hardware at L5-S1. Pelvic bones have normal alignment. At the right hip, the prosthetic femoral head is well-positioned within the acetabular cup. No osteolysis or fracture around the hardware. At the left hip, the prosthetic femoral head is well centered within the acetabular cup which exhibits normal lateral version. There is no abnormal lucency or fracture around the femoral stem. An old focus of heterotopic ossification projects from the anterior inferior iliac spine. Left tibia-fibula: Chondrocalcinosis of menisci. Knee joint spaces are maintained. Bones have normal alignment. No knee joint effusion. A nonaggressive lucency of approximately 1.2 cm in length in the distal tibial diaphysis is very likely benign; this is stable compared to 03/05/2021. There are no aggressive osseous lesions. There is edema/swelling of subcutaneous tissues of the leg. No soft tissue gas. Left ankle: The talar dome is well-positioned within the intact mortise. The talocrural joint space and syndesmotic space are normal. No evidence of acute fracture or subluxation. There is soft tissue swelling/edema around the ankle and within the leg. No radiopaque foreign body. There are atherosclerotic calcifications of the posterior tibial and dorsalis pedis arteries. XR/XR ankle LT min 3V IMPRESSION: * No evidence of loosening of components of the total hip arthroplasties. No fracture or malalignment at either hip. * No acute osseous injury in the left lower extremity or ankle. * There is diffuse edema of the subcutaneous tissues of the lower leg and ankle.
--- NOTE | 2023-07-06 09:38 | ED_ITS ---
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 Patient states he was turning to put something in laundry when lost balance and fell onto left side, denies head trauma or LOC. denies symptoms prior to fall including lightheadedness/dizziness, CP/SOB. Status unable to get himself up off the ground. Tetanus unknown. Denies abdominal pain, nausea/vomiting, CP/SOB. At baseline ambulates with jassi VILLALPANDO complaint: fall Related Data Home Medications Medication Instructions Recorded Confirmed albuterol sulfate 90 mcg/actuation 2 puff inhalation QID PRN 06/19/20 05/05/22 aerosol inhaler (ProAir HFA) Shortness Of Breath atenolol 25 mg tablet 25 mg PO DAILY 06/19/20 05/05/22 tamsulosin 0.4 mg capsule 0.4 mg PO BEDTIME 06/19/20 05/05/22 aspirin 81 mg tablet,delayed 81 mg PO DAILY 11/19/20 05/05/22 release fexofenadine 180 mg tablet 180 mg PO DAILY 11/19/20 05/05/22 pantoprazole 20 mg tablet,delayed 20 mg PO DAILY@0630 11/19/20 05/05/22 release (Protonix) acetaminophen 325 mg tablet 650 mg PO Q6H PRN Pain (Scale 12/12/20 05/05/22 (Tylenol) Score 1-3) fluticasone fur. 200 mcg-umeclid 1 inh inhalation DAILY 12/12/20 05/05/22 62.5 mcg-vilant 25 mcg inhalat.powder (Trelegy Ellipta) fluticasone propionate 50 1 spray intranasal DAILY 02/12/21 05/05/22 mcg/actuation nasal spray,suspension oxycodone-acetaminophen 5 mg-325 1 tab PO QID PRN Pain (Scale Score 02/12/21 05/05/22 mg tablet 1-3) losartan 100 mg tablet 100 mg PO DAILY 03/05/21 05/05/22 hydrocortisone 1 % topical cream appl topical 08/07/21 05/05/22 nebulizers 10/15/22 Oxygen Home Use 01/08/23 gabapentin 100 mg capsule 200 mg PO TID 04/10/23 Previous Rx's Medication Instructions Recorded montelukast 10 mg tablet 10 mg PO DAILY 30 days #30 tabs 06/26/20 amlodipine 10 mg tablet (Norvasc) 10 mg PO DAILY #30 tabs 10/30/20 furosemide 20 mg tablet 20 mg PO DAILY 90 days #90 tabs 02/14/21 budesonide 0.5 mg/2 mL suspension 0.5 mg (2 mL) inhalation BID 30 08/07/21 for nebulization days #120 mL omeprazole 40 mg capsule,delayed 40 mg PO DAILY #30 caps 10/15/22 release azithromycin 250 mg tablet 250 mg PO 3XW 28 days #12 tabs 12/15/22 fluconazole 100 mg tablet 100 mg PO DAILY 10 days #10 tabs 02/05/23 isosorbide mononitrate 60 mg 60 mg PO DAILY #90 tabs 02/09/23 tablet,extended release 24 hr prednisone 20 mg tablet See Rx Instructions PO DAILY 10 04/10/23 days #15 tabs roflumilast 250 mcg tablet 250 mcg PO DAILY 30 days #30 tabs 04/10/23 doxycycline monohydrate 100 mg 100 mg PO BID 14 days #28 tabs 04/27/23 tablet prednisone 20 mg tablet See Rx Instructions PO DAILY 10 04/27/23 days #15 tabs prednisone 10 mg tablet See Rx Instructions PO DAILY 20 05/07/23 days #30 tabs albuterol sulfate 2.5 mg/3 mL 2.5 mg (3 mL) inhalation DAILY PRN 05/22/23 (0.083 %) solution for nebulization for dyspnea #75 mL Allergies Allergy/AdvReac Type Severity Reaction Status Date / Time ibuprofen Allergy Mild Gastrointestinal Verified 04/10/23 13:20 Upset Review of Systems Review of Systems: Constitutional: No Fever, No Chills ENT/Mouth: No Ear Pain, No Nasal Congestion, No sore throat Cardiovascular: No Chest Pain, No SOB Respiratory: No Cough, No Sputum Gastrointestinal: No Nausea, No Vomiting, No Diarrhea, No Abdominal pain Genitourinary: No Dysuria, No Urinary Frequency, No Hematuria, No Urinary Incontinence/retention, No Flank Pain Musculoskeletal: + joint pain, +Myalgias, + Joint Swelling Skin: + Skin Lesions, No rash Neuro: No Weakness, No Numbness, No Paresthesias Yes all other systems are reviewed and are negative Constitutional: Constitutional: Reports as per [facility] Past Medical History Attestation statement: The following information was validated with the patient. Source: old records reviewed Medical History Chronic respiratory failure Pre-op chest exam Inferior OR Pneumonitis Pulmonary nodules BPH (benign prostatic hyperplasia) COPD (chronic obstructive pulmonary disease) Pneumonia HTN (hypertension) Surgical History History of carpal tunnel surgery of right wrist Hx of cardiac cath Family History Family History Mother CAD (coronary artery disease) Heart attack Father HTN (hypertension) Brother H/O heart bypass surgery Sister Afib Social History Social History Household Members: Spouse Housing: House Do you presently have visiting nurse or other home services: No Alcohol intake: never Patient Tobacco Use Status: Former Tobacco user Tobacco use type: Cigarette Advance Directives: Yes Advance Directives on File: Yes Advance Directives Date on File: 06/25/20 service: No Current occupational status: retired Physical Exam Vital Signs: Vital Signs: Last Vital Signs Temp 97.6 F 07/06/23 12:24 Pulse 64 07/06/23 14:22 Resp 14 07/06/23 12:24 BP 111/70 07/06/23 14:22 Pulse Ox 97 07/06/23 14:22 O2 Del Method Room Air 07/06/23 12:24 BMI result Body Mass Index 32.4 Const: General: cooperative, healthy appearing, no acute distress, alert and awake Orientation/consciousness: patient oriented x3 Limitations: no limitations HEENT: Head: Yes normal to inspection and Yes atraumatic Ears: hearing grossly normal bilaterally General nose exam: Normal external nose present Face and sinus: Yes normal facial exam Throat: Yes posterior oropharynx normal and Yes uvula midline Eyes: General: appearance normal, both eyes and all related structures Pupils: Equal, round and reactive pupils present EOM: EOMs intact bilaterally Neck: Neck: Yes normal visual inspection and Yes no meningeal signs Resp: Effort & Inspection: normal respiratory effort and no respiratory distress Auscultation: clear to auscultation bilaterally Cardio: Rate: regular rate Heart sounds: S1 normal heart sound present and S2 normal heart sound present Peripheral pulses: Peripheral pulses 2+ throughout GI: Inspection: Yes normal to inspection Palpation (GI): Soft to palpation, nontender, no guarding and not rigid : General: Yes no CVA tenderness Back/Spine/Pelvis: Other: No midline cervical/thoracic/lumbar spinous tenderness/step-off or deformity Back: no CVA tenderness Skin: Other: +skin tears to LUE +small abrasion to right elbow Rashes: no rashes Neuro: Other: Baseline left-sided weakness General: patient oriented x3, tone normal, moves all extremities, no meningeal signs and no focal motor deficits Cranial nerves: Yes CN's II-XII intact bilaterally and Yes Equal, round and reactive pupils present Cognition (Neuro): normal cognition Extrem: Other: Left forearm with mild tenderness. Neurovascular intact distally Pelvis stable. Left hip with noted tenderness & decreased ROM secondary to pain. Left lower extremity with noted swelling/ecchymosis and tenderness. Neurovascularly intact distally General: Yes normal to inspection Course Course Course Narrative: XR forearm LT 2V IMPRESSION: No acute fracture or malalignment in the elbow or forearm. XR hip LT w PEL1V/XR tibia fibula LT 2V/XR ankle LT min 3V IMPRESSION: * No evidence of loosening of components of the total hip arthroplasties. No fracture or malalignment at either hip. * No acute osseous injury in the left lower extremity or ankle. * There is diffuse edema of the subcutaneous tissues of the lower leg and ankle. > Steri-Strips applied to skin tears 1252--CT head/brain wo IV con/CT cervical spine wo IV con IMPRESSION: 1. No acute intracranial process seen. 2. There is no acute fracture, dislocation or subluxation seen in cervical spine. There is mild reversal of cervical lordosis with postsurgical changes as described above. No acute intracranial process -physical therapy evaluated patient and recommended STR vs acute rehab. Pending case management eval. Physician observation initiated at 15:38 Medications Administered Discontinued Medications Generic Name Dose Route Start Last Admin Trade Name Freq PRN Reason Stop Dose Admin Diphtheria/Tetanus/Acell Pertussis 0.5 ml 07/06/23 09:28 07/06/23 10:55 Diphth,Pertus(Acell),Tet Adult 0.5 Ml Syringe IM 07/06/23 09:29 0.5 ml .ONCE ONE Administration Medical Decision Making Medical Decision Making MDM Narrative: 83-year-old male with a past medical history of COPD on 2.5L nasal cannula, pneumonia, HTN, BPH, OR, baseline left-sided weakness, on AC, presenting to the ED via EMS complaining of left hip/thigh, left lower leg, and left arm pain 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 On exam vital signs stable, NAD, nontoxic appearing, physical exam as noted above. Concern for fractures vs contusions vs ICH and skin tears. No evidence of expanding hematoma/compartment syndrome at this time. Low suspicion for infectious etiologies was metabolic abnormalities or SAH Plan: Head/C-spine CT, x-rays, Tdap, Steri-Strip skin tears Please refer to course for remaining clinical decision making, interpretation of labs/imaging results, and discussions with consultants and/or family members. Differential Diagnosis Differential Diagnoses: The differential diagnosis associated with the presentation includes As above Admission/Observation Consideration of admission/observation: Escalation of care including admission/observation considered Lab Data [facility] Lab Attestation statement: I reviewed the patient's lab results. Labs: Lab Results 07/06/23 Range/Units 14:07 COVID-19 (HECTOR) Negative (Negative) COVID-19 Clin Com See Note Independent Interpretation I performed an independent interpretation of an: Plain X-Ray and CT Scan Radiology Impression Discussion of test interpretation with radiology: I have reviewed the radiologist's reading. Independent Historian Clinical information obtained from an independent historian. History obtained from or confirmed by: EMS External Record Review External record reviewed: Inpatient record, Office record, Outpatient record, Prior outpatient labs, Prior outpatient radiology, Primary care record and Outside ED record Tests considered The following testing was considered but not selected: As above Prescription Management I considered prescription management with: Pain Medication Chronic Conditions Patient?s care impacted by: Hypertension and Other (COPD) Discharge Plan Discharge Clinical Impression: Ankle sprain, Skin tear of left upper extremity Patient Disposition: Still a Patient Prescriptions: No Action furosemide 20 mg tablet 20 mg PO DAILY 90 Days Qty: 90 0RF azithromycin 250 mg tablet 250 mg PO 3XW 28 Days Qty: 12 1RF Rx Instructions: Take 1 tablet on Thursday/Thursday/Thursday fluconazole 100 mg tablet 100 mg PO DAILY 10 Days Qty: 10 0RF isosorbide mononitrate 60 mg tablet extended release 24 hr 60 mg PO DAILY Qty: 90 3RF doxycycline monohydrate 100 mg tablet 100 mg PO BID 14 Days Qty: 28 0RF prednisone 20 mg tablet See Rx Instructions PO DAILY 10 Days Qty: 15 0RF Rx Instructions: PO daily; Take 2 tabs daily x 5 days, then 1 tablet daily x 5 days prednisone 10 mg tablet See Rx Instructions PO DAILY 20 Days Qty: 30 0RF Rx Instructions: PO daily; Take 2 tabs daily x 10 days, then 1 tab daily x 10 days albuterol sulfate 2.5 mg /3 mL (0.083 %) solution for nebulization 2.5 mg inhalation DAILY PRN (Reason: for dyspnea) Qty: 75 1RF atenolol 25 mg Tablet 25 mg PO DAILY tamsulosin 0.4 mg Capsule 0.4 mg PO BEDTIME albuterol sulfate [ProAir HFA] 90 mcg/actuation Hfa Aerosol Inhaler 2 puff INHALATION QID PRN (Reason: Shortness Of Breath) amlodipine [Norvasc] 10 mg tablet 10 mg PO DAILY Qty: 30 0RF losartan 100 mg Tablet 100 mg PO DAILY hydrocortisone 1 % cream topical budesonide 0.5 mg/2 mL suspension for nebulization 0.5 mg inhalation BID 30 Days Qty: 120 11RF montelukast 10 mg tablet 10 mg PO DAILY 30 Days Qty: 30 11RF aspirin 81 mg tablet,delayed release (DR/EC) 81 mg PO DAILY pantoprazole [Protonix] 20 mg tablet,delayed release (DR/EC) 20 mg PO DAILY@0630 fexofenadine 180 mg tablet 180 mg PO DAILY gabapentin 100 mg capsule 200 mg PO TID Trelegy Ellipta 200-62.5-25 mcg blister with device 1 inh inhalation DAILY acetaminophen [Tylenol] 325 mg tablet 650 mg PO Q6H PRN (Reason: Pain (Scale Score 1-3)) oxycodone-acetaminophen 5-325 mg tablet 1 tab PO QID PRN (Reason: Pain (Scale Score 1-3)) fluticasone propionate 50 mcg/actuation spray,suspension 1 spray intranasal DAILY (DME) nebulizers Misc See Rx Instructions .ROUTE Rx Instructions: As directed omeprazole 40 mg capsule,delayed release(DR/EC) 40 mg PO DAILY Qty: 30 0RF (DME) Oxygen Home Use Kit See Rx Instructions .ROUTE Rx Instructions: As directed roflumilast 250 mcg tablet 250 mcg PO DAILY 30 Days Qty: 30 11RF prednisone 20 mg tablet See Rx Instructions PO DAILY 10 Days Qty: 15 0RF Rx Instructions: PO daily; Take 2 tabs daily x 5 days, then 1 tablet daily x 5 days
[2023-07-06] MEDS: Diphth,Pertus(ACell),Tet Adult 0.5 ML SYRINGE IM (10:55)
[2023-07-06 14:24] LABS: COVID-19 Test Negative (Negative); IDNOW Serial# 58CA691E
--- NOTE | 2023-07-06 18:07 | MHC.CM.ED ---
CM met with patient. A&Ox3. Lives , [place] and Sister in law,Mirna Viveros ([phone]). Pt's has dementia and patient and her sister help to care for her. Pt uses a cane, still drives. Has MOW and houskeeper twice a week from [facility]. PT recommending STR/Acute rehab. Referrals placed by previous CM. [facility] able [facility] offer [facility] bed. Pt has been there previously. Pt has accepted a bed. [facility] was able to accept patient tonight, however provider ordered another CT scan of pelvis to assess for fx. [facility] notified via [facility] that patient will not discharge until tomorrow, as they will not accept patient after 8 pm. BLS booked with [facility], as patient has [employer] Medicare. [facility] aware that discharge for tonight has been changed to tomorrow. Will transport patient tomorrow at 9am to [facility]. Pt aware. Dinner ordered. CM called and spoke with and with Mirna. Requested that Mirna bring some clothing and the patients ProAir and Trelegy to the facility. Mirna is concerned about the upcoming storm tomorrow and will be able to bring them possibly on Thursday. CM will follow for discharge needs.
--- NOTE | 2023-07-06 20:20 | PC.NURSE ---
Patient arrived to ED overflow from Main ED s/p fall at home. Patient A&Ox4. Arrived on 3L nc, spo2 94%. Pt states this is his baseline level of home o2. Pt was very unsteady with transfer OOB from stretcher to bed. Bedpan used, pending PT/CM consult. Pain BP elevated 193/88 HR 80. Pt c/o 9/10 pain in pelvis, stomach . Covering provider Ryann Vidal notified of vitals; pain meds and o2 orders requested.
[2023-07-06] MEDS: oxyCODONE HCl Immed Release 5 MG TABLET PO (20:58)
[2023-07-06] MEDS: Acetaminophen 325 MG TABLET 975 MG PO (20:59)
--- NOTE | 2023-07-06 21:05 | MHC.EDTECH ---
Assisted pt with bedpan and urinal.
--- NOTE | 2023-07-06 21:09 | PC.NURSE ---
Patient states he took all of his home meds at 06:30 this morning, including all of his blood pressure medications. MD notified. Patient medicated for pain, effectiveness pending. LUE remains wrapped in DSD present on arrival from main ED, Left ankle remains shamir wrapped. Both are c/d/i without drainage. Surrounding skin WNL for pt ethnicity. Mild edema to LUE and LLE. Pt has +radial and dp pulses. +cms. +equal grasp bilaterally. +dorsiflexion and plantarflexion. Pt denies dizziness, headache, chest pain, dizziness, sob, n/v. Breathing is even and unlabored without distress on pt reported baseline 3L nc with active MD order in place. Will continue to monitor pt safety and comfort for remainder of insurance underwriter sales's scheduled care.
--- NOTE | 2023-07-07 02:37 | PC.NURSE ---
BP reassessed 22:00 per DATA ENTRY SUPERVISOR request, HTN resolved. VSS. Pain well managed with administered tylenol and oxycodone. Patient resting in bed appearing comfortable and without distress. Breathing is even and unlabored. Hourly purposeful rounding in place. Call fernando within reach, patient rings to make needs known. Bed alarm, camera, and safety measures continue.
[2023-07-07 05:08] VITALS: BP 131/74; PULSE 81; RESP 18; TEMP 36.8; O2SAT 97
--- NOTE | 2023-07-07 05:46 | PC.NURSE ---
Covering Dr. Gill notified pt unable to void, bladder scanned for 369ml. Patient meds in summary list tamsulosin though pt is unable to recall/verify his meds when asked. Denies pelvic pressure or discomfort at this time. Pt does c/o constipation however, only having small brown softly formed BM this shift. Awaiting further orders at this time.
--- NOTE | 2023-07-07 09:28 | PHA.MEDREC ---
Pharmacy Consult ? Medication Reconciliation Pharmacy has completed the medication reconciliation. Spoke with [facility] and patient's sister in law, Mirna Viveros.
== END 2023-07-07 09:49 ==
PROVIDERS: Physician Assistant; Emergency Provider Emergency Medicine; PCP Internal Medicine
DX: S93.402A Sprain of unspecified ligament of left ankle, initial encounter (principal); S40.812A Abrasion of left upper arm, initial encounter; S40.811A Abrasion of right upper arm, initial encounter; J44.9 Chronic obstructive pulmonary disease, unspecified; I10 Essential (primary) hypertension; M25.552 Pain in left hip; R26.2 Difficulty in walking, not elsewhere classified; R51.9 Headache, unspecified; R33.9 Retention of urine, unspecified; R10.2 Pelvic and perineal pain; M79.602 Pain in left arm; W01.10XA Fall on same level from slipping, tripping and stumbling with subsequent striking against unspecified object, initial encounter; Y93.9 Activity, unspecified; Y92.9 Unspecified place or not applicable; Y99.8 Other external cause status; Z99.81 Dependence on supplemental oxygen; Z79.899 Other long term (current) drug therapy; Z87.891 Personal history of nicotine dependence; Z11.52 Encounter for screening for COVID-19; Z23 Encounter for immunization
CPT/HCPCS: 51702; 70450; 72125; 72192; 73090; 73502; 73590; 73610; 87635; 90471; 90715; 97162; 99285

== ENCOUNTER 2023-08-13 12:51 | Outpatient (AMB) | payer MEDICARE, MEDICAID, SELFPAY ==
--- NOTE | 2023-08-13 13:00 | A.OFFVIS_ITS ---
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 He has background history of coronary artery disease. He presented to us at [facility] with mild NSTEMI in the setting of COPD exacerbation with ST depressions. 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 We decided to medically manage him. He has advanced lung disease due to COPD. He is saying he is doing better with inhalers and medications. He has bilateral lower extremity edema. He also has some shoulder issues and will require surgery in 1 month. He is complaining that he has been off balance a lot and tends to fall to the right side of the body. 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 He is saying he consistently falls right-sided. He has been using a cane to walk. 04/15/2022 the patient is here for a pul monary follow-up visit. The patient will be undergoing a hip surgery soon. He is going to require total hip replacement. This will be done at [facility]. In the meantime is respiratory status is at baseline. He does have some shortness breath with activity mild to moderate with severity. The patient does use a cane and he does get some fatigue just because is also dealing with this musculoskeletal issues. Today need to get an x-ray in therefore we did get him a wheelchair for the duration of the ambulation. He does continue to uses inhalers as prescribed. He does have Trelegy that he uses in the morning and then a rescue inhaler to use as needed. The patient is complaining of some chest discomfort coming and going. Currently he does not have it. As far as his respiratory exam is benign. He does not have any reproducible discomfort. Will have him get a chest x-ray to make sure that all is well. He will be following up with Cardiology soon. He does have a cardiac history. The patient is aware that if the chest pain returns of her worsens he is to go to the ED or seek medical attention. 10/15/2022 the patient is here for [facility] follow-up visit. Since we last spoke he did develop a respiratory illness in a COPD exacerbation. He sized primary care doctor who placed on prednisone and a course of Z-Edward. The patient improved although he has symptoms then started reoccurring. Does have increased chest congestion. He had been on azithromycin in the past and that was helpful for him. Therefore will which started for another 4-8 weeks to see if we can get his lungs a little bit more clear. The patient has been using his respiratory therapy as prescribed. 12/23/2022 [facility] He is having worsening chest discomfort shortness of breath and cough. He has been using his inhalers with only partial resolution of the symptoms. He is also concerned because he feels very weak. Today in the office was noted to have significant wheezing chest tightness. His also cough is productive at times. The patient was given a treatment with DuoNeb and he did feel better. He did have a brief 6 minute walk test the patient did desaturate very quickly to 88% with just a few steps. He was placed on 2 L pulse and did well maintaining a pulse ox 92%. Therefore he needs to start oxygen at this time. Patient also will undergo blood work and a chest x-ray at this time. He will start antibiotics and prednisone. If the patient is no better or if he worsens he definitely has to go to the hospital for further care. In the meantime is a follow-up in a couple weeks. 01/08/2023 the patient is here for pullil[facility] wilkinson follow-up visit. During the last visit he was fairly sick he was started on oxygen. The patient completed the prednisone and now the antibiotics. Now complaining of significant sore throat. Feels very dry. She has significant thrush this time. May have some Dayna esophagitis since he has also some discomfort swallowing. Will go ahead and start him on fluconazole. Since we last spoke the patient did have blood work including an elevated troponin I. I did call him and told him to go to the ER which she did. Not clear which ER he went to. He will also follow up with his planning rn. For the most part the cardiac issues are likely secondary to the demand from his respiratory process. His chest x-ray also looked that and was fairly unremarkable. The patient has been using the oxygen with good effect. Also been using the Trelegy. It is also feeling better overall. 04/10/2023 the patient is here for a pulmonary follow-up visit. Has not been complaining of worsening shortness of breath and chest tightness. He has been using his in haler once or twice a day. Only with partial improvement of his symptoms. He has been using his oxygen more regularly. On examination he does have increased wheezing chest tightness along with a prolonged expiratory phase. He is already on Trelegy. He is already tried azithromycin. I do believe Daliresp will be a good option for him. Although we did talk about the GI symptoms that can occur. The patient can always start small dose and see to take it slowly titrating it up to minimize on the adverse effects. Patient also will need some prednisone to help him with this amount of wheezing. If the pa tient is no better after the prednisone or if he can not tolerate the Daliresp she should call the office for an earlier assessment otherwise will follow-up in 3-4 months. 08/13/2023 the patient is here for a pulmonary follow-up visit. He continues on the Trelegy inhaler. Appears to be affecting beneficial. Still has some dyspnea on exertion. [id number]-[id number] severity. Mainly with activity. Does get better with rest. The last visit he did have an exacerbation. He has not had any need for additional antibiotics and prednisone since we last spoke. Will plan to request PFTs for his next visit. We also did review his last chest x-ray from December 2022. Demonstrated some volume overload status. No overt heart failure. He knows to be careful with his sodium intake And also taking t he diuretic. [facility] Medical History Chronic respiratory failure Pre-op chest exam Inferior NM Pneumonitis Pulmonary nodules BPH (benign prostatic hyperplasia) COPD (chronic obstructive pulmonary disease) Pneumonia HTN (hypertension) Surgical History History of carpal tunnel surgery of right wrist Hx of cardiac cath Family History Mother CAD (coronary artery disease) Heart attack Father HTN (hypertension) Brother H/O heart bypass surgery Sister Afib Social History Household Members: Spouse Housing: House Do you presently have visiting nurse or other home services: No Alcohol intake: never Patient Tobacco Use Status: Former Tobacco user Tobacco use type: Cigarette Advance Directives Date on File: 06/25/20 service: No Current occupational status: retired Review of Systems Const Reports fatigue, Denies malaise and Denies night sweats ENT Denies change in voice, Denies lip swelling, Denies mouth pain, Denies nasal congestion, Denies nasal discharge and Denies tongue swelling Card Denies chest pain, Reports dyspnea and Reports dyspnea on exertion Resp Denies change in phlegm color, Denies chest congestion, Reports cough, Denies hemoptysis, Denies excessive phlegm production, Reports dyspnea, Reports dyspnea on exertion and Reports wheezing GI Denies abdominal pain Musc Reports no additional complaints, Reports as per HPI, Reports abnormal gait, Reports arthralgias, Reports joint swelling and Reports muscle weakness Neuro Reports as per HPI and Reports abnormal gait Psych Denies no additional complaints and Reports other (hyper-sexual) Endo Reports fatigue Marco/Lymph Denies easy bleeding and Denies lymphadenopathy Aller/Immun Denies lip swelling, Denies tongue swelling and Reports wheezing Physical Exam Vital Signs: Last Vital Signs Pulse 81 08/13/23 13:01 Pulse Ox 94 08/13/23 13:01 Oxygen Delivery Method Room Air 08/13/23 13:01 BMI result Body Mass Index 33.8 Const General: alert HEENT Head: Yes normocephalic Neck Neck: Yes normal visual inspection, Yes full ROM and Yes no lymphadenopathy Chest Chest palpation & inspection: normal inspection of the chest Resp Effort & Inspection: normal respiratory effort and prolonged expiratory phase Auscultation: no rhonchi, no wheezes and diminished lung sounds Cardio Rate: regular rate Rhythm: regular rhythm Heart sounds: S1 normal heart sound present and S2 normal heart sound present GI Palpation (GI): Soft to palpation and Tenderness to palpation present (GI) in the epigastrum Auscultation: normal bowel sounds Skin General skin exam: rashes and/or lesions noted Extrem General: Yes no clubbing, cyanosis or edema Assessment & Plan Assessment & Plan (1) Dyspnea on exertion: Code(s): R06.00 - Dyspnea, unspecified (2) COPD (chronic obstructive pulmonary disease): Comment: severe COPD Code(s): J44.9 - Chronic obstructive pulmonary disease, unspecified Qualifiers: COPD type: chronic bronchitis Chronic bronchitis type: simple Qualified Code(s): J41.0 - Simple chronic bronchitis (3) Pneumonitis: Code(s): J18.9 - Pneumonia, unspecified organism (4) Chronic respiratory failure: Code(s): J96.10 - Chronic respiratory failure, unspecified whether with hypoxia or hypercapnia Qualifiers: Respiratory failure complication: hypoxia Qualified Code(s): J96.11 - Chronic respiratory failure with hypoxia Plan continue oxygen 2L/pulse 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) change Trelegy inhaler 200 mcg->100mcg not taking Dalirep CANDELARIA as needed F/U with Cardiology PFTs in 5/6 months F/U 6 months Orders: Orders PFT pulmonary function test 5 Months J96.11 - Chronic respiratory failure with hypoxia Medications: New albuterol sulfate 90 mcg/actuation (ProAir HFA) 2 puffs inhalation QID PRN 8.5 grams 11RF Shortness Of Breath Changed From nrfhsuaiell-sfxdanqcd-lnrdwuhr 100-62.5-25 mcg (Trelegy Ellipta) 1 ea inhalation DAILY To trsspomqprp-hzunfprkh-wotuxlsu 100-62.5-25 mcg (Trelegy Ellipta) 1 ea inhalation DAILY 30 days 60 ea 11RF Coding Level of Care Code Est Pt Level 4 (06376) Diagnoses Dyspnea on exertion R06.00 Simple chronic bronchitis J41.0 COPD type: chronic bronchitis Chronic bronchitis type: simple Pneumonitis J18.9 Chronic respiratory failure with hypoxia J96.11 Respiratory failure complication: hypoxia Time Spent (min) 17
[2023-08-13 13:01] VITALS: PULSE 81; O2SAT 94; BMI 33.8
== END 2023-08-13 13:18 | disposition home or self-care (01) ==
PROVIDERS: PCP Internal Medicine; Visit Provider Hospitalist
DX: J41.0 Simple chronic bronchitis (principal); J18.9 Pneumonia, unspecified organism; J96.11 Chronic respiratory failure with hypoxia
CPT/HCPCS: 99214

== ENCOUNTER → 2023-08-13 12:51 | Outpatient (BNVA) | payer MEDICARE, SELFPAY | PROVIDERS: PCP Internal Medicine; Visit Provider Hospitalist | DX: J41.0 Simple chronic bronchitis (principal); R06.00 Dyspnea, unspecified; I25.10 Atherosclerotic heart disease of native coronary artery without angina pectoris; I25.2 Old myocardial infarction; J12.89 Other viral pneumonia; J96.11 Chronic respiratory failure with hypoxia | CPT/HCPCS: 99212 ==

== ENCOUNTER 2023-08-17 12:14 | Inpatient (IN) | payer MEDICARE, OTHER, SELFPAY ==
[2023-08-17] VITALS (8 sets, daily range): BP systolic 95–140; BP diastolic 50–82; PULSE 72–104; RESP 12–22; TEMP 36.6–37.8; O2SAT 91–96; BMI 31.8
--- NOTE | ~2023-08-17 | XR_ITS ---
EXAMINATION: XR CHEST CLINICAL INFORMATION: Shortness of breath, rule out pneumonia versus CHF COMPARISON: 01/11/2023 TECHNIQUE: Frontal view of the chest was obtained. FINDINGS: Mildly enlarged cardiac mediastinal silhouette is stable. There are low lung volumes. There is mildly increased interstitial markings with blunting of the costophrenic sulci. No pneumothorax. Orthopedic hardware in the cervical spine. XR/XR chest 1V IMPRESSION: Low lung volumes. Mildly increased interstitial markings favoring mild interstitial edema versus over atypical infectious process.
--- NOTE | 2023-08-17 12:48 | ED_ITS ---
HPI - SOB/Dyspnea General Chief Complaint: Dyspnea Stated Complaint: SOB Time Seen by Provider: 08/17/23 12:36 Source: patient and EMS Mode of arrival: EMS Limitations: no limitations History of Present Illness HPI Narrative: 83-year-old male history of COPD, inferior SC, pneumonitis, pulmonary nodule, BPH, pneumonia, hypertension, with weakness of the left upper and lower extremity who presents emergency department for evaluation of shortness of breath. Patient lives at home with his . His 's physical therapist noted that the your breath after he got out of the shower and was walking down stairs. The physical therapist was concerned and called an ambulance. States he has been feeling short of breath for approximately 2 days. He states he has had a cough which is nonproductive. He denied fever, chills, rhinorrhea or sore throat. He states he does feel short of breath at rest and when he walks around. He does have COPD and he wears 2.5 L of oxygen via nasal cannula. He denied nausea, vomiting, diarrhea, frequency, urgency, dysuria Patient states he has noticed increased swelling in his lower extremities. 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 He states that he was having increased pain in his left arm over the past 2 days. Paramedics state that the patient did appear to be short of breath and was talking 1-2 word sentences, there were concerned that he had a COPD exacerbation and treated him with albuterol 5 mg nebulizer, magnesium 2 g IV and Solu-Medrol 125 mg IV with some improvement of his symptoms. Related Data Home Medications Medication Instructions Recorded Confirmed atenolol 25 mg tablet 25 mg PO DAILY 06/19/20 07/07/23 tamsulosin 0.4 mg capsule 0.4 mg PO BEDTIME 06/19/20 07/07/23 aspirin 81 mg tablet,delayed 81 mg PO DAILY 11/19/20 07/07/23 release fexofenadine 180 mg tablet 180 mg PO DAILY 11/19/20 07/07/23 pantoprazole 20 mg tablet,delayed 20 mg PO DAILY@0630 11/19/20 07/07/23 release (Protonix) acetaminophen 325 mg tablet 650 mg PO Q6H PRN Pain (Scale 12/12/20 07/07/23 (Tylenol) Score 1-3) fluticasone propionate 50 1 spray intranasal DAILY 02/12/21 07/07/23 mcg/actuation nasal spray,suspension oxycodone-acetaminophen 5 mg-325 1 tab PO QID PRN Pain (Scale Score 02/12/21 07/07/23 mg tablet 1-3) hydrocortisone 1 % topical cream 1 appl topical DAILY PRN Rash 08/07/21 07/07/23 nebulizers 10/15/22 Oxygen Home Use 01/08/23 gabapentin 100 mg capsule 200 mg PO TID 04/10/23 07/07/23 Previous Rx's Medication Instructions Recorded montelukast 10 mg tablet 10 mg PO DAILY 30 days #30 tabs 06/26/20 amlodipine 10 mg tablet (Norvasc) 10 mg PO DAILY #30 tabs 10/30/20 furosemide 20 mg tablet 20 mg PO DAILY 90 days #90 tabs 02/14/21 isosorbide mononitrate 60 mg 60 mg PO DAILY #90 tabs 02/09/23 tablet,extended release 24 hr albuterol sulfate 2.5 mg/3 mL 2.5 mg (3 mL) inhalation DAILY PRN 05/22/23 (0.083 %) solution for nebulization for dyspnea #75 mL albuterol sulfate 90 mcg/actuation 2 puff inhalation QID PRN 08/13/23 aerosol inhaler (ProAir HFA) Shortness Of Breath #8.5 grams fluticasone fur. 100 mcg-umeclid 1 ea inhalation DAILY 30 days #60 08/13/23 62.5 mcg-vilant 25 mcg ea inhalat.powder (Trelegy Ellipta) Allergies Allergy/AdvReac Type Severity Reaction Status Date / Time ibuprofen Allergy Mild Gastrointestinal Verified 08/13/23 13:03 Upset Review of Systems 2 Review of Systems: Yes all other systems are reviewed and are negative [facility] Past Medical History [facility] Narrative: Social history: He lives at home with his . He is a former smoker and stop smoking many years ago. He denies alcohol and drug use. Medical History Chronic respiratory failure Pre-op chest exam Inferior SC Pneumonitis Pulmonary nodules BPH (benign prostatic hyperplasia) COPD (chronic obstructive pulmonary disease) Pneumonia HTN (hypertension) Surgical History History of carpal tunnel surgery of right wrist Hx of cardiac cath Family History Family History Mother CAD (coronary artery disease) Heart attack Father HTN (hypertension) Brother H/O heart bypass surgery Sister Afib Social History Social History Household Members: Spouse Housing: House Do you presently have visiting nurse or other home services: No Alcohol intake: never Patient Tobacco Use Status: Former Tobacco user Tobacco use type: Cigarette Advance Directives: Yes Advance Directives on File: Yes Advance Directives Date on File: 06/25/20 service: No Current occupational status: retired Physical Exam 2 Vital Signs: Vital Signs: Last Vital Signs Temp 98.9 F 08/17/23 14:37 Pulse 85 08/17/23 14:37 Resp 18 08/17/23 14:37 BP 95/53 L 08/17/23 14:37 Pulse Ox 95 08/17/23 14:37 O2 Del Method Nasal Cannula 08/17/23 14:37 O2 Flow Rate 3 08/17/23 14:37 Oxygen Flow Rate 3 08/17/23 12:55 BMI result Body Mass Index 31.8 Patient had a fever of 100.1 degrees F. Exam: General: Awake, alert in no distress Head: Normocephalic, atraumatic EENT: PERRL, Lids normal, sclera normal, conjunctiva normal, nose normal , ears normal, throat without erythema or exudates Neck: Supple, no adenopathy Lung: breath sounds symmetric, no wheezing, no rhonchi, rales at the bases Chest: symmetric movement, nontender Heart: regular rate and rhythm, normal S1, S2 no murmurs or rubs Abdomen: soft, non-tender, nondistended, normal bowel sounds Back: no vertebral tenderness, no CVAT Extremities: Contraction of the left upper extremity, with atrophy of both the left upper and lower extremities. One to 2+ pitting edema in both lower extremities with the right lower extremity being larger than the left. Neuro: Awake, alert, oriented, normal speech, cranial nerves intact, moves all extremities symmetrically Psych: Pleasant, cooperative Medications Administered Discontinued Medications Generic Name Dose Route Start Last Admin Trade Name Freq PRN Reason Stop Dose Admin Furosemide 40 mg 08/17/23 14:15 08/17/23 14:36 Furosemide 40 Mg/4 Ml Vial IVPUSH 08/17/23 14:16 40 mg STAT STA Administration Protocol Medical Decision Making Medical Decision Making MDM Narrative: 83-year-old male history of COPD 2.5 L oxygen via nasal cannula, inferior SC, pneumonitis, pulmonary nodule, BPH, pneumonia, hypertension, with weakness of the left upper and lower extremity who presents emergency department for evaluation of shortness of breath x2 days, nonproductive cough, with symptoms getting worse today,paramedics treated him with albuterol 5 mg nebulizer, magnesium 2 g IV and Solu-Medrol 125 mg IV with some improvement of his symptoms. Vital signs did reveal fever my oral temperature of 100.1 degrees F, saturation was 92% on 2.5 L of oxygen nasal cannula. Lung exam did reveal rales at the bases, patient has atrophy of his left upper and lower extremity secondary to polio and 1 to 2+ pitting edema lower extremities right greater than left. 14:16 Differential diagnosis: ?Includes but is not limited to CHF, pneumonia, urinary tract infection, viral infection, COPD exacerbation Following evaluation was ordered: CBC, CMP, lipase, PTT, lipase, BNP, troponin, urinalysis, lactic acid, blood cultures x2, COVID-19, influenza, RSV Patient was initially treated with the following: Oxygen 2.5 L per nasal cannula Course: 14:16 My interpretation patient's laboratory evaluation is as follows: WBC was elevated 13,000 with a normal differential. H&H was normal glucose elevated 129. Lactic acid was normal 1.2. BNP elevated 122. Troponin was detectable at 13.0 but not elevated. LFTs were normal. Lipase was normal. Chest x-ray did reveal increased interstitial markings with no clear focal infiltrate more consistent with congestive heart failure. At this time, do not think that the patient has an infectious process requiring antibiotics. The patient's shortness of breath is most likely caused by a combination of exacerbation of his chronic lung disease and congestive heart failure. Patient was ordered to get Lasix 40 mg IV. I did discuss admission over tiger text with the covering hospitalist, Dr. Del Valle. Admission/Observation Consideration of admission/observation: Escalation of care including admission/observation considered Consult Healthcare Provider Management of the patient was discussed with: Hospitalist (Dr. Del Valle) Lab Data MDM Lab Attestation statement: I reviewed the patient's lab results. 08/17/23 13:18 08/17/23 13:18 Labs: Lab Results 08/17/23 Range/Units 13:18 WBC 13.0 H (4.8-10.8) X10*3/uL RBC 4.45 L (4.60-5.80) X10*6/uL Hgb 13.1 L (14.0-18.0) g/dl Hct 41.3 L (42.0-52.0) % MCV 92.8 (80.0-98.0) fL MCH 29.4 (27.0-33.0) pg MCHC 31.7 (31.0-36.0) g/dl RDW 12.6 (11.0-16.0) % Plt Count 215 D (160-400) X10*3/uL MPV 9.7 (9.4-12.4) fL Immature Gran % (Auto) 0.5 H (0.0-0.4) % Neut % (Auto) 85.8 H (45-73) % Lymph % (Auto) 4.8 L (20-40) % [place] % (Auto) 7.7 (2-11) % Eos % (Auto) 0.6 (0-4) % Baso % (Auto) 0.6 (0-2) % Lymph # (Auto) 0.6 L (1.2-4.9) X10*3/uL [place] # (Auto) 1.0 (0.1-1.2) X10*3/uL Eos # (Auto) 0.1 (0.0-0.4) X10*3/uL Baso # (Auto) 0.1 (0.0-0.2) X10*3/uL Abs Immat Gran (auto) 0.06 H (0.00-0.03) X10*3/uL Absolute Neuts (auto) 11.2 H (2.0-8.3) x10*3/uL Absolute Nucleated RBC 0.000 (0.0-0.012) X10*3/uL Nucleated RBC % (auto) 0.0 (0.0-0.2) /100WBC APTT 22.4 L (26.0-36.8) SEC Sodium 141 (135-145) mmol/L Potassium 4.0 (3.3-5.1) mmol/L Chloride 106 (96-108) mmol/L Carbon Dioxide 29 (22-29) mmol/L Anion Gap 10 L (12-20) BUN 18 H (9-16) mg/dL Creatinine 1.10 (0.5-1.4) mg/dL Estim Creat Clear Calc 49.7 Estimated GFR > 60 Random Glucose 129 H (60-115) mg/dL Lactic Acid 1.2 (0.5-2.0) mmol/L Calcium 9.3 (8.4-10.2) mg/dL Total Bilirubin 0.6 (0.0-1.0) mg/dL AST 23 (5-37) U/L ALT 22 (0-40) U/L Alkaline Phosphatase 81 (39-117) U/L Troponin I High Sens 13.0 D (<3.5-35.0) ng/L B-Natriuretic Peptide 122 H (<100) pg/mL Total Protein 7.4 (6.5-8.0) g/dL Albumin 3.9 (3.5-5.0) g/dL Lipase 14 (8-78) U/L Independent Interpretation I performed an independent interpretation of an: EKG and Plain X-Ray Interpretation: My interpretation patient's chest x-ray is as follows: Increased interstitial markings bilaterally consistent with congestive heart failure, no focal infiltrates Interpretation patient's 12 EKG done at 13:01 hours is as follows: Normal sinus rhythm rate of 97, normal TX interval, QRS duration QTC interval, no ST segment elevation, no ST segment depression, small Q-waves in lead 3 and inverted T- waves in 3 and AVF consistent with old inferior infarct, no PACs, no PVCs. Radiology Impression Discussion of test interpretation with radiology: I have reviewed the radiologist's reading. Radiologist Impression: XR chest 1V IMPRESSION: Low lung volumes. Mildly increased interstitial markings favoring mild interstitial edema versus over atypical infectious process. Dictated By: Nelson Loyd MD Independent Historian Clinical information obtained from an independent historian. History obtained from or confirmed by: EMS Chronic Conditions Patient?s care impacted by: Other (COPD, congestive heart failure) Critical Care Time Critical Care Time Critical Care Time: Yes Total Critical Care Time: 35 Attestation: Critical Care: The patient was critically ill with a high probability of imminent or life threatening deterioration. I spent greater than 30 minutes of discontinuous time evaluating the patient,delivering critical care at the bedside, discussing and evaluating pertinent data with consultants. Critical care time does not include time spent performing separately billable procedures or teaching. Total time spent performing critical care was 35 minutes. Discharge Plan Discharge Clinical Impression: Chronic lung disease, Congestive heart disease Prescriptions: No Action furosemide 20 mg tablet 20 mg PO DAILY 90 Days Qty: 90 0RF isosorbide mononitrate 60 mg tablet extended release 24 hr 60 mg PO DAILY Qty: 90 3RF albuterol sulfate 2.5 mg /3 mL (0.083 %) solution for nebulization 2.5 mg inhalation DAILY PRN (Reason: for dyspnea) Qty: 75 1RF atenolol 25 mg Tablet 25 mg PO DAILY tamsulosin 0.4 mg Capsule 0.4 mg PO BEDTIME amlodipine [Norvasc] 10 mg tablet 10 mg PO DAILY Qty: 30 0RF hydrocortisone 1 % cream 1 appl topical DAILY PRN (Reason: Rash) montelukast 10 mg tablet 10 mg PO DAILY 30 Days Qty: 30 11RF aspirin 81 mg tablet,delayed release (DR/EC) 81 mg PO DAILY pantoprazole [Protonix] 20 mg tablet,delayed release (DR/EC) 20 mg PO DAILY@0630 fexofenadine 180 mg tablet 180 mg PO DAILY gabapentin 100 mg capsule 200 mg PO TID acetaminophen [Tylenol] 325 mg tablet 650 mg PO Q6H PRN (Reason: Pain (Scale Score 1-3)) oxycodone-acetaminophen 5-325 mg tablet 1 tab PO QID PRN (Reason: Pain (Scale Score 1-3)) fluticasone propionate 50 mcg/actuation spray,suspension 1 spray intranasal DAILY (DME) nebulizers [facility] See Rx Instructions .ROUTE Rx Instructions: As directed (DME) Oxygen Home Use Kit See Rx Instructions .ROUTE Rx Instructions: As directed Trelegy Ellipta 100-62.5-25 mcg blister with device 1 ea inhalation DAILY 30 Days Qty: 60 11RF albuterol sulfate [ProAir HFA] 90 mcg/actuation HFA aerosol inhaler 2 puff INHALATION QID PRN (Reason: Shortness Of Breath) Qty: 8.5 11RF
--- NOTE | 2023-08-17 12:49 | ECG_ITS ---
Test Reason : SOB Blood Pressure : / mmHG Vent. Rate : 097 BPM Atrial Rate : 097 BPM P-R Int : 188 ms QRS Dur : 092 ms QT Int : 358 ms P-R-T Axes : 047 045 -05 degrees QTc Int : 454 ms Normal sinus rhythm Cannot rule out Inferior infarct , age undetermined Abnormal ECG When compared with ECG of 24-OCT-2022 11:42, No significant change was found Referred By: Shahbaz Echeverria Electronically Signed By:Jamie Wilson
[2023-08-17 13:23] LABS: MANUAL DIFF FLAG NO
[2023-08-17 13:28] LABS: Basophils Absolute Auto 0.1 X10*3/uL (0.0-0.2); Basophils Percent Auto 0.6 % (0-2); Eosinophils Absolute Auto 0.1 X10*3/uL (0.0-0.4); Eosinophils Percent Auto 0.6 % (0-4); Hematocrit 41.3 % (42.0-52.0); Hemoglobin 13.1 g/dl (14.0-18.0); Imm Gran Abs Auto 0.06 X10*3/uL (0.00-0.03); Imm Gran Pct Auto 0.5 % (0.0-0.4); Lymphocytes Absolute Auto 0.6 X10*3/uL (1.2-4.9); Lymphocytes Percent Auto 4.8 % (20-40); Mean Corpuscular HGB Conc 31.7 g/dl (31.0-36.0); Mean Corpuscular Hemoglobin 29.4 pg (27.0-33.0); Mean Corpuscular Volume 92.8 fL (80.0-98.0); Mean Platelet Volume 9.7 fL (9.4-12.4); Monocytes Percent Auto 7.7 % (2-11); Neutrophils Absolute Auto 11.2 x10*3/uL (2.0-8.3); Neutrophils Percent Auto 85.8 % (45-73); Platelet Count 215 X10*3/uL (160-400); Red Blood Count 4.45 X10*6/uL (4.60-5.80); Red Cell Distribution Width 12.6 % (11.0-16.0)
[2023-08-17 13:38] LABS: Lactic Acid 1.2 mmol/L (0.5-2.0)
[2023-08-17 13:51] LABS: Alanine Aminotransferase 22 U/L (0-40); Albumin Level 3.9 g/dL (3.5-5.0); Alkaline Phosphatase 81 U/L (39-117); Anion Gap 10 (12-20); Aspartate Amino Transferase 23 U/L (5-37); Bilirubin Total 0.6 mg/dL (0.0-1.0); Blood Urea Nitrogen 18 mg/dL (9-16); Calcium 9.3 mg/dL (8.4-10.2); Carbon Dioxide 29 mmol/L (22-29); Chloride 106 mmol/L (96-108); Creatinine Clr Calc Pharmacy 49.7; Estimated Glomerular Filt Rate > 60; Glucose Random 129 mg/dL (60-115); Lipase 14 U/L (8-78); Sodium 141 mmol/L (135-145); Total Protein 7.4 g/dL (6.5-8.0)
[2023-08-17 13:56] LABS: Partial Thromboplastin Time 22.4 SEC (26.0-36.8)
[2023-08-17 14:00] LABS: B Type Natriuretic Peptide 122 pg/mL (<100)
[2023-08-17] MEDS: Furosemide 40 MG/4 ML VIAL IVPUSH (14:36)
--- NOTE | 2023-08-17 14:44 | PC.NURSE ---
patient presented sob, is on 3l NC, VSS, respirations equal and unlabored, patient skin dry and intact. patient has two 20# G IV in the right arm. patient medicated per MAR with IV lasix, condom cath applied to monitor patient output.
--- NOTE | 2023-08-17 15:13 | P.HPHOSP_ITS ---
History of Present Illness Date of Service: 08/17/23 Attending physician on admission: [facility] Chief Complaint: sob 83 year old male with history of copd with chronic hypoxemic respiratory failure on 2.5L supplemental O2 at baseline, BPH, htn, CAD with history of NSTEMI, history of polio with chronic LUE and LLE weakness presented to the ED for evaluation of dyspnea that started this morning. He reports dyspnea at rest, with exertion, denies orthopnea or PND. Reports on and off edema in the ble. has chronic intermittent cough but denies any sputum production. Does not weigh himself regularly. Does reports eating a lot of sodium with chocolate covered raisins, potato chips, chocolate. NO fevers, chills, st, abd pain, n/v/d, urinary symptoms, lightheadedness, palpitations, or chest pain. No sick contacts. He is a former smoker. No alcohol use or drug use. On arrival, VSS. There is a leukocytosis of 13.0. Renal function and lytes normal. Trop 13. BNP 122. Negative for COVID-19, flu, rsv. CXR shows mildly increased interstitial markings favoring interstitial edema. EKG shows NSR, rate 97, no acute ischemic changes. Per EMS, received 125mg IV methylprednisolone, albuterol nebs, and magnesium. In the ED, given 40mg IV lasix. Review of Systems 2 Review of Systems: General: No fevers, malaise, unintentional weight loss HEENT: No blurred vision, diplopia. No sore throat, nasal congestion, rhinorrhea, sinus pain, ear pain Cardiovascular: +ble edema. No chest pain, palpitations Respiratory: +shortness of breath, +cough. No wheezing GI: No abdominal pain, nausea, vomiting, diarrhea, constipation, melena, hematochezia : No dysuria, hematuria, increased urinary frequency, decreased urinary output MSK: No myalgia, back pain Neuro: No headaches, weakness, paresthesias Skin: No rashes or lesions [facility] Medical History Chronic respiratory failure Pre-op chest exam Inferior [place] Pneumonitis Pulmonary nodules BPH (benign prostatic hyperplasia) COPD (chronic obstructive pulmonary disease) Pneumonia HTN (hypertension) Family History Mother CAD (coronary artery disease) Heart attack Father HTN (hypertension) Brother H/O heart bypass surgery Sister Afib Surgical History History of carpal tunnel surgery of right wrist Hx of cardiac cath Social History Household Members: Spouse Housing: House Do you presently have visiting nurse or other home services: No Alcohol intake: never Patient Tobacco Use Status: Former Tobacco user Tobacco use type: Cigarette Advance Directives: Yes Advance Directives on File: Yes Advance Directives Date on File: 06/25/20 service: No Current occupational status: retired [employer] Allergies Allergy/AdvReac Type Severity Reaction Status Date / Time ibuprofen Allergy Mild Gastrointestinal Verified 08/13/23 13:03 Upset Active Medications: Current Medications Acetaminophen (Acetaminophen 325 Mg Tablet) 650 mg PO Q6H PRN PRN Reason: Pain, Mild (Pain Scale 1-3) Albuterol/Ipratropium (Albuterol/Iprat 2.5/0.5mg 3 Ml Ampul.Neb) 3 ml INHALE RQ4H WHILE AWAKE KRISTIN Enoxaparin Sodium (Enoxaparin Sodium 40 Mg/0.4 Ml Syringe) 40 mg SUBCUT Q24H KRISTIN Furosemide (Furosemide 40 Mg/4 Ml Vial) 40 mg IVPUSH DAILY KRISTIN; Protocol Methylprednisolone Sodium Succinate (Methylprednisolone Sod Succ 40 Mg/Ml Vial) 40 mg IVPUSH Q12H KRISTIN Ondansetron HCl (Ondansetron Hcl 4 Mg/2 Ml Vial) 4 mg IVPUSH Q8H PRN PRN Reason: Nausea and Vomiting Senna (Sennosides 8.6 Mg Tablet) 17.2 mg PO BEDTIME PRN PRN Reason: Constipation Sodium Chloride (0.9 % Sodium Chloride Flush 3 Ml Syringe) 3 ml IVFLUSH QSHIFT KRISTIN Home Medications Medication Instructions Recorded Confirmed Last Taken Type atenolol 25 mg tablet 25 mg PO DAILY 06/19/20 08/17/23 08/17/23 History aspirin 81 mg tablet,delayed 81 mg PO DAILY 11/19/20 08/17/23 08/17/23 History release pantoprazole 20 mg tablet,delayed 20 mg PO DAILY@0630 11/19/20 08/17/23 08/17/23 History release (Protonix) acetaminophen 325 mg tablet 650 mg PO Q6H PRN Pain (Scale 12/12/20 08/17/23 Unknown History (Tylenol) Score 1-3) fluticasone propionate 50 1 spray intranasal DAILY PRN 02/12/21 08/17/23 08/17/23 History mcg/actuation nasal Congestion spray,suspension oxycodone-acetaminophen 5 mg-325 1 tab PO QID PRN Pain (Scale Score 02/12/21 08/17/23 08/17/23 History mg tablet 1-3) nebulizers 10/15/22 Unknown History Oxygen Home Use 01/08/23 Unknown History gabapentin 100 mg capsule 200 mg PO TID 04/10/23 08/17/23 08/17/23 History albuterol sulfate 2.5 mg/3 mL 2.5 mg inhalation Q6H PRN for 08/17/23 08/17/23 08/17/23 History (0.083 %) solution for nebulization dyspnea methyl salicylate-menthol topical 1 ea topical TID PRN Muscle Pain 08/17/23 08/17/23 Unknown History ointment Physical Exam 2 Vital Signs and Narrative: Vital Signs: Last Vital Signs Temp 98.9 F 08/17/23 14:37 Pulse 85 08/17/23 14:37 Resp 18 08/17/23 14:37 BP 95/53 L 08/17/23 14:37 Pulse Ox 95 08/17/23 14:37 O2 Del Method Nasal Cannula 08/17/23 14:37 O2 Flow Rate 3 08/17/23 14:37 Oxygen Flow Rate 3 08/17/23 12:55 BMI result Body Mass Index 31.8 Constitutional - Awake and Alert, No apparent distress Eyes - PERRLA, EOMI Cardiovascular - S1S2, RRR, 3+ ble edema Respiratory - Normal lung expansion, Normal respiratory effort, No respiratory distress on 2.5L supplemental O2. Diminished lungs bilaterally with scattered crackles most notable in the bases bilaterally Gastrointestinal - NT / ND; +BS; No rebound or guarding Extremities - no calf tenderness bilaterally, no swelling Skin - Warm/Dry Neurological - Alert & oriented x3 Psychological - Appropriate affect Results Labs 08/18/23 05:55 08/18/23 05:55 Labs: Laboratory Results - last 24 hr 08/17/23 13:18 MCV 92.8 MCH 29.4 MCHC 31.7 RDW 12.6 Plt Count 215 D MPV 9.7 Immature Gran % (Auto) 0.5 H Neut % (Auto) 85.8 H Lymph % (Auto) 4.8 L [place] % (Auto) 7.7 Eos % (Auto) 0.6 Baso % (Auto) 0.6 Lymph # (Auto) 0.6 L [place] # (Auto) 1.0 Eos # (Auto) 0.1 Baso # (Auto) 0.1 Abs Immat Gran (auto) 0.06 H Absolute Neuts (auto) 11.2 H Absolute Nucleated RBC 0.000 Nucleated RBC % (auto) 0.0 APTT 22.4 L Anion Gap 10 L Estim Creat Clear Calc 49.7 Estimated GFR > 60 Random Glucose 129 H Lactic Acid 1.2 Calcium 9.3 Total Bilirubin 0.6 AST 23 ALT 22 Alkaline Phosphatase 81 Troponin I High Sens 13.0 D B-Natriuretic Peptide 122 H Total Protein 7.4 Albumin 3.9 Lipase 14 Imaging Radiologist's Impressions: Impressions Chest X-Ray 08/17/23 13:00 IMPRESSION: Low lung volumes. Mildly increased interstitial markings favoring mild interstitial edema versus over atypical infectious process. Assessment and Plan (1) CHF exacerbation: Status: Acute Plan 83 year old male with history of copd with chronic hypoxemic respiratory failure on 2.5L supplemental O2 at baseline, BPH, htn, CAD with history of NSTEMI, history of polio with chronic LUE and LLE weakness admitted for CHF exacerbation #Acute CHF exacerbation -CXR with increased interstitial markings with BNP 122 -IV lasix 40mg daily -strict I&O -daily weights -cardiac diet -echo -cardiology consult -follow renal function/lytes #Mild COPD exacerbation with chronic hypoxemic respiratory failure -will continue methylprednisolone 40mg BID, change to prednisone as appropriate -duonebs -continue maintenance inhalers -neg covid, flu, rsv #HTN -bp soft 95/53 on admission -hold antihypertensives for now, resume as appropriate #CAD -continue asa. Hold isosorbide and atenolol for now #BPH -continue flomax DVT prophylaxis- lovenox full code Pt requires inpt stay at least 2 midnights for management of chf exacerbation requiring ov diuresis and close monitoring of i&o as well as monitoring of renal function/lytes Quality Stroke Does the patient have a stroke diagnosis?: No VTE Prior VTE?: No VTE Risk Level:: Medical - moderate - high VTE Device Contraindication: Treatment Not Indicated VTE Drug Contraindication: N/A - Med Ordered
[2023-08-17 15:14] LABS: Influenza A PCR NEGATIVE (Negative); Influenza B PCR NEGATIVE (Negative); Resp Syncy Virus RNA Qual PCR NEGATIVE (Negative); SARS COV2 PCR INHOUSE NEGATIVE (Negative)
[2023-08-17 15:36] LABS: Appearance Urine Clear; Color Urine Yellow; Glucose Urine UA Negative (Negative); Leukocyte Esterase Urine Moderate (2+) (Negative); Nitrite Urine Negative (Negative); UMIC TRIGGER UACC YES; Urine Blood Trace (Negative); Urine Ketones Negative (Negative); Urine Protein Negative (Neg-Trace)
[2023-08-17 15:38] LABS: Bacteria Urine Trace (None Seen); Hyaline Casts Urine 0-2 /LPF (0-2); RBC Urine 0-2 /HPF (0-2); Squamous Epithelial Cell Urine 0-2 /HPF (0-2); UACC Culture Trigger YES; WBC Urine >50 /HPF (0-5)
--- NOTE | 2023-08-17 16:14 | P.CONCA_ITS ---
History of Present Illness History of Present Illness Date of Service: 08/17/23 Chief complaint: SOB Narrative: 83-year-old gentleman presenting for shortness of breath. He has known history of coronary disease in the past. He also has hypertension. He is saying that he has been short of breath for long time but this morning his breathing got worse to the point that he could not breathe well and he decided to come to the ER. In the ER he had chest x-ray performed which raise concern for mild congestive heart failure. His BNP was also mildly elevated. He takes 20 mg of Lasix at home. He is laying in bed and appears to be short of breath. He is saying with the supplemental oxygen he is feeling better. He is denying any chest discomfort. Labs, EKG and imaging reviewed. [facility] Past Medical History Medical History Chronic respiratory failure Pre-op chest exam Inferior [place] Pneumonitis Pulmonary nodules BPH (benign prostatic hyperplasia) COPD (chronic obstructive pulmonary disease) Pneumonia HTN (hypertension) Family History Family History Mother CAD (coronary artery disease) Heart attack Father HTN (hypertension) Brother H/O heart bypass surgery Sister Afib Surgical History Surgical History History of carpal tunnel surgery of right wrist Hx of cardiac cath Social History Social History Household Members: Spouse Housing: House Do you presently have visiting nurse or other home services: No Alcohol intake: never Patient Tobacco Use Status: Former Tobacco user Tobacco use type: Cigarette Advance Directives: Yes Advance Directives on File: Yes Advance Directives Date on File: 06/25/20 service: No Current occupational status: retired Meds Allergies Allergy/AdvReac Type Severity Reaction Status Date / Time ibuprofen Allergy Mild Gastrointestinal Verified 08/13/23 13:03 Upset Active Medications: Current Medications Acetaminophen (Acetaminophen 325 Mg Tablet) 650 mg PO Q6H PRN PRN Reason: Pain, Mild (Pain Scale 1-3) Albuterol/Ipratropium (Albuterol/Iprat 2.5/0.5mg 3 Ml Ampul.Neb) 3 ml INHALE RQ4H WHILE AWAKE [facility] Last Admin: 08/17/23 15:15 Dose: Not Given Enoxaparin Sodium (Enoxaparin Sodium 40 Mg/0.4 Ml Syringe) 40 mg SUBCUT Q24H KRISTIN Furosemide (Furosemide 40 Mg/4 Ml Vial) 40 mg IVPUSH DAILY [facility]; Protocol Methylprednisolone Sodium Succinate (Methylprednisolone Sod Succ 40 Mg/Ml Vial) 40 mg IVPUSH Q12H KRISTIN Ondansetron HCl (Ondansetron Hcl 4 Mg/2 Ml Vial) 4 mg IVPUSH Q8H PRN PRN Reason: Nausea and Vomiting Senna (Sennosides 8.6 Mg Tablet) 17.2 mg PO BEDTIME PRN PRN Reason: Constipation Sodium Chloride (0.9 % Sodium Chloride Flush 3 Ml Syringe) 3 ml IVFLUSH QSHIFT [facility] Home Medications Medication Instructions Recorded Confirmed Last Taken Type atenolol 25 mg tablet 25 mg PO DAILY 06/19/20 07/07/23 03/04/21 History tamsulosin 0.4 mg capsule 0.4 mg PO BEDTIME 06/19/20 07/07/23 03/04/21 History aspirin 81 mg tablet,delayed 81 mg PO DAILY 11/19/20 07/07/23 03/04/21 History release fexofenadine 180 mg tablet 180 mg PO DAILY 11/19/20 07/07/23 03/04/21 History pantoprazole 20 mg tablet,delayed 20 mg PO DAILY@0630 11/19/20 07/07/23 03/04/21 History release (Protonix) acetaminophen 325 mg tablet 650 mg PO Q6H PRN Pain (Scale 12/12/20 07/07/23 Unknown History (Tylenol) Score 1-3) fluticasone propionate 50 1 spray intranasal DAILY 02/12/21 07/07/23 03/04/21 History mcg/actuation nasal spray,suspension oxycodone-acetaminophen 5 mg-325 1 tab PO QID PRN Pain (Scale Score 02/12/21 07/07/23 Unknown History mg tablet 1-3) hydrocortisone 1 % topical cream 1 appl topical DAILY PRN Rash 08/07/21 07/07/23 Unknown History nebulizers 10/15/22 Unknown History Oxygen Home Use 01/08/23 Unknown History gabapentin 100 mg capsule 200 mg PO TID 04/10/23 07/07/23 Unknown History Physical Exam 2 Vital Signs: Vital Signs: Last Vital Signs Temp 98.9 F 08/17/23 14:37 Pulse 85 08/17/23 14:37 Resp 18 08/17/23 14:37 BP 95/53 L 08/17/23 14:37 Pulse Ox 95 08/17/23 14:37 O2 Del Method Nasal Cannula 08/17/23 14:37 O2 Flow Rate 3 08/17/23 14:37 Oxygen Flow Rate 3 08/17/23 12:55 BMI result Body Mass Index 31.8 GENERAL APPEARANCE: Short of breath, on supplemental oxygen. NECK: no carotid bruit, mild jugular venous distention. SKIN: no suspicious lesions, warm and dry. HEART: Systolic murmur aortic area, regular rate and rhythm. LUNGS: Diminished at bases. ABDOMEN: soft, nontender. EXTREMITIES: Mild edema. PERIPHERAL PULSES: equal. NEUROLOGIC: No gross deficits, AAO X 3 Objective Labs and Meds 08/17/23 13:18 08/17/23 13:18 Lab results: Laboratory Results - last 24 hr 08/17/23 08/17/23 08/17/23 13:18 14:19 15:29 WBC 13.0 H RBC 4.45 L Hgb 13.1 L Hct 41.3 L MCV 92.8 MCH 29.4 MCHC 31.7 RDW 12.6 Plt Count 215 D MPV 9.7 Immature Gran % (Auto) 0.5 H Neut % (Auto) 85.8 H Lymph % (Auto) 4.8 L [place] % (Auto) 7.7 Eos % (Auto) 0.6 Baso % (Auto) 0.6 Lymph # (Auto) 0.6 L [place] # (Auto) 1.0 Eos # (Auto) 0.1 Baso # (Auto) 0.1 Abs Immat Gran (auto) 0.06 H Absolute Neuts (auto) 11.2 H Absolute Nucleated RBC 0.000 Nucleated RBC % (auto) 0.0 APTT 22.4 L Sodium 141 Potassium 4.0 Chloride 106 Carbon Dioxide 29 Anion Gap 10 L BUN 18 H Creatinine 1.10 Estim Creat Clear Calc 49.7 Estimated GFR > 60 Random Glucose 129 H Lactic Acid 1.2 Calcium 9.3 Total Bilirubin 0.6 AST 23 ALT 22 Alkaline Phosphatase 81 Troponin I High Sens 13.0 D B-Natriuretic Peptide 122 H Total Protein 7.4 Albumin 3.9 Lipase 14 Urine Color Yellow Urine Appearance Clear Urine pH 5.0 Ur Specific [place] 1.010 Urine Protein Negative Urine Glucose (UA) Negative Urine Ketones Negative Urine Blood Trace H Urine Nitrite Negative Ur Leukocyte Esterase Moderate (2+) H Urine RBC 0-2 Urine WBC >50 H Ur Squamous Epith Cells 0-2 Urine Bacteria Trace Hyaline Casts 0-2 Influenza Type A (PCR) NEGATIVE Influenza Type B (PCR) NEGATIVE RSV RNA Qual (PCR) NEGATIVE SARS-CoV-2 RNA (RT-PCR) NEGATIVE Imaging Radiologist's impression: Impressions Chest X-Ray 08/17/23 13:00 IMPRESSION: Low lung volumes. Mildly increased interstitial markings favoring mild interstitial edema versus over atypical infectious process. Assessment and Plan (1) CHF exacerbation: Status: Acute Plan Pleasant 83-year-old gentleman who is here for shortness of breath. Clinically mildly overloaded. Agree with IV diuretics. Please give him 40 mg IV Lasix once a day. Monitor electrolytes and blood pressure closely. His blood pressure is little soft currently. Hold amlodipine tomorrow morning if blood pressure continues to be low. Check echocardiogram tomorrow. We will follow along with you. Thank you for allowing me to participate in the care of your patient. Please feel free to contact me if you have any questions. Procedures Date of Service Date of Service: 08/17/23
[2023-08-17] MEDS: Enoxaparin Sodium 40 MG/0.4 ML SYRINGE SUBCUT (16:30)
--- NOTE | 2023-08-17 16:35 | PC.NURSE ---
patient resting quietly in bed, respirations equal and unlabored. patient states his legs feel heavy. patient has condom cath, bag emptied of 500 ml of clear yellow urine. VSS,
--- NOTE | 2023-08-17 18:45 | MHC.EDTECH ---
Patient bed pad changed and patient repositioned
--- NOTE | 2023-08-17 19:20 | PC.NURSE ---
assumed care of pt 1914. sats 91% on 3L NC. wheezing auscultated bilat respiratory notified for breathing tx. pt denies feeling sob/cp. nad. pt ate 100% dinner. speaking full clear sentences. call fernando within reach.
[2023-08-17] MEDS: Albuterol/Iprat 2.5/0.5MG 3 ML AMPUL.NEB INHALE (19:28)
--- NOTE | 2023-08-17 19:35 | PHA.MEDREC ---
Pharmacy Consult ? Medication Reconciliation Pharmacy has completed the medication reconciliation. Confirmed medications with patient and through claim history. Was not 100% on fexofenadine or Montelukast. I confirmed them but left unknown as to when he last took them.
[2023-08-17] MEDS: Gabapentin 100 MG CAPSULE 200 MG PO (20:11)
[2023-08-17] MEDS: methylPREDNISolone Sod Succ 40 MG/ML VIAL IVPUSH (20:12)
[2023-08-18] VITALS (12 sets, daily range): BP systolic 114–127; BP diastolic 56–69; PULSE 77–88; RESP 12–23; TEMP 36.6–36.8; O2SAT 94–98
[2023-08-18] MEDS: Omeprazole 20 MG CAPSULE.DR PO (06:22)
[2023-08-18 06:33] LABS: Anion Gap 15 (12-20); Blood Urea Nitrogen 23 mg/dL (9-16); Calcium 9.9 mg/dL (8.4-10.2); Carbon Dioxide 27 mmol/L (22-29); Chloride 103 mmol/L (96-108); Creatinine Clr Calc Pharmacy 47.1; Estimated Glomerular Filt Rate > 60; Glucose Random 199 mg/dL (60-115); Potassium 3.7 mmol/L (3.3-5.1); Sodium 141 mmol/L (135-145)
[2023-08-18 06:51] LABS: Hematocrit 43.1 % (42.0-52.0); Hemoglobin 13.7 g/dl (14.0-18.0); Mean Corpuscular HGB Conc 31.8 g/dl (31.0-36.0); Mean Corpuscular Hemoglobin 28.8 pg (27.0-33.0); Mean Corpuscular Volume 90.7 fL (80.0-98.0); Mean Platelet Volume 9.9 fL (9.4-12.4); Platelet Count 232 X10*3/uL (160-400); Red Blood Count 4.75 X10*6/uL (4.60-5.80); Red Cell Distribution Width 12.5 % (11.0-16.0); White Blood Count 20.8 X10*3/uL (4.8-10.8)
--- NOTE | 2023-08-18 07:00 | CA_ITS ---
Transthoracic Echocardiogram Patient (Last, First, Middle): Adonis Truong E Gender: Male Date of : 1940 Age: 83 Procedure Date: 08/18/2023 Procedure Type: Transthoracic Echocardiogram Location: ER Height: 162.56 cm Weight: 83.92 kg BSA: 1.89 m2 Heart Rate: bpm BP: 116 / 58 mmHg Voice Intercept Technician: TO Referring MD: Cramen MA Symptoms: chf exacerbation Study Quality: Technically Difficult/Contrast Conclusions: - Normal left ventricular size and systolic function. The visually estimated ejection fraction is between 55-60%. There is evidence of regional wall motion abnormalities. Abnormal diastolic function is noted. Spectral Doppler is indicative of an impaired relaxation filling pattern. E/E prime ratio is >15, consistent with elevated filling pressures. 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 - Normal right ventricular cavity size and systolic function. - There is paradoxical low flow low gradient severe aortic valve stenosis. The peak aortic velocity is 3.11 m/s. The mean gradient is 26 mmHg. The aortic valve area is 0.67 cm2. Findings Procedure Information Contrast agent, definity, is being given per protocol without apparent complications. The study quality is limited by the patients inability to tolerate the test and patients body habitus. Left Ventricle Normal left ventricular size and systolic function. The visually estimated ejection fraction is between 55-60%. There is evidence of regional wall motion abnormalities. Abnormal diastolic function is noted. Spectral Doppler is indicative of an impaired relaxation filling pattern. E/E prime ratio is >15, consistent with elevated filling pressures. 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 Right Ventricle Normal right ventricular cavity size and systolic function. Atria The left atrium is likely dilated. The right atrium is normal in size. Aortic Valve There is a normal trileaflet aortic valve. There is mild calcification of the aortic valve. There is severe aortic valve stenosis. The peak aortic velocity is 3.11 m/s. The mean gradient is 26 mmHg. The aortic valve area is 0.67 cm2. There is no aortic valve regurgitation. Mitral Valve The mitral valve appears normal. There is no mitral valve regurgitation. There is no mitral valve stenosis. Pulmonic Valve The pulmonic valve is likely normal. Tricuspid Valve Normal tricuspid valve structure. There is no tricuspid valve regurgitation. Tricuspid regurgitation envelope is inadequate for calculation of right ventricular systolic pressure. Normal right atrial pressure. Great Vessels All visible segments of the aorta are normal in size. Venous The inferior vena cava is normal in size and collapses greater than 50% with inspiration. Pericardium/Pleural Prominent epicardial adipose tissue noted. There is no evidence of pericardial effusion. Prior Study Comparison Changes noted compared to prior study dated: 10/29/2020. Severe present. Measurements 2D Linear Measurements IVSd: 1.39 0.6-0.9/0.6-1.0 cm LVIDd: 4.34 3.9-5.3/4.2-5.9 cm LVIDd Index: 2.30 2.4-3.2/2.2-3.1 cm/m2 LVIDs: 3.20 2.0-3.6 cm LVPWd: 1.06 0.7-1.1 cm LA Diam: 3.50 2.7-3.8/3.0-4.0 cm LAIDs Index: 1.85 1.5-2.3 cm/m2 LV Mass: 240.55 67-162/88-224 g LV Mass Index: 127.28 43-95/49-115 g/m2 LVOT Diam: 2.00 3.0+(-)1.3 cm 2D Systolic Function EF 4C: 54.60 >55% EF 2C: 49.30 >55% EF BiP: 49.60 >55% Mitral Valve MV VTI: 0.29 MV Pk Conner: 1.09 MV Mn Conner: 0.71 MV Pk Grad: 5.00 MV Mn Grad: 2.00 MV Pk E: 0.85 MV PK A: 0.96 MV Decel Time: 173.00 E/A: 0.90 E'Lateral: 5.22 E'Medial: 4.24 E/E' Med: 20.10 E/E' Lat: 16.30 PHT: 51.00 MVA PHT: 4.31 MVA Continuity: 1.87 Decel [place]: 4.94 Aortic Valve AoV Pk Conner: 3.11 AoV Mn Conner: 2.40 AoV VTI: 0.81 AoV Pk Grad: 39.00 Aov Mn Grad: 26.00 GISELLA Cont.VTI: 0.67 LVOT LVOT Pk Conner: 0.57 LVOT Mn Conner: 0.41 LVOT VTI: 0.17 LVOT Pk Grad: 1.00 LVOT Mn Grad: 1.00 LVOT Diam: 2.00 LVOT Area: 3.14 Diastolic Function MV Pk E: 0.85 MV Pk A: 0.96 E/A: 0.90 E'Medial: 4.24 E/E' Med: 20.10 E' Laterial: 5.22 E/E' Lat: 16.30 Right Ventricle TAPSE (mm): 20.40 TVS' Conner: 11.70 Tricuspid Valve RA Press: 8.00 Great Vessels Aorta Sinus of Valsalva: 3.72 2.0-3.5 cm Ao Asc: 3.40 2.1-3.4 cm Updated in Other Vendor System with Status of Final Jamie Wilson MD electronically signed on 08/18/2023 8:14:26 PM with status of Final
[2023-08-18] MEDS: Albuterol/Iprat 2.5/0.5MG 3 ML AMPUL.NEB INHALE ×3 (07:52→19:17)
[2023-08-18] MEDS: Fluticasone/Umeclidinium/Vilanterol 100/62.5/25 BLST.W.DEV 1 PUFF INHALE (08:40)
--- NOTE | 2023-08-18 09:05 | PC.NURSE ---
REPAIRER ART OBJECTS AT BEDSIDE, PT AWARE OF PLAN OF CARE.
--- NOTE | 2023-08-18 09:15 | PC.NURSE ---
PT IS A/O X 4 NO C/O SOB/ANA PER PT. PT IS ON 3L/M VIA N/. LUNGS - KEVIN UPPER LOBES - DIMINISHED, KEVIN LOWER LOBES - CRACKLES. PT DENIES ANY PAIN/DISC. PT HAS A [place] CATH IN PLACE, PATENT AND DRAINING CLEAR YELLOW URINES(PT GETS LASIX IVP). PT IS 2 ASSIST OOB. PT OOB TO COMMODE. PT HAD AN XXLG FORMED (BROWN) BM X 1. PT HAS 2 #20'S IV'S TO R ARM. PT AWARE OF PLAN OF CARE. WILL CONTINUE TO MONITOR.
[2023-08-18] MEDS: Gabapentin 100 MG CAPSULE 200 MG PO ×3 (09:24→21:13)
[2023-08-18] MEDS: Aspirin Enteric Coated 81 MG TABLET.DR PO (09:24)
[2023-08-18] MEDS: Montelukast Sodium 10 MG TABLET PO (09:24)
[2023-08-18] MEDS: atenoloL 25 MG TABLET PO (09:24)
[2023-08-18] MEDS: Isosorbide Mononitrate 60 MG TAB.ER.24H PO (09:24)
[2023-08-18] MEDS: methylPREDNISolone Sod Succ 40 MG/ML VIAL IVPUSH ×2 (09:27→21:16)
[2023-08-18] MEDS: Furosemide 40 MG/4 ML VIAL IVPUSH (09:36)
--- NOTE | 2023-08-18 11:23 | P.PNCA_ITS ---
Subjective Subjective Date of Service: 08/18/23 Interval history: Seen examined at bedside. Improving compared to yesterday. He has some wheezes on examination. Physical Exam Vital Signs: Last Vital Signs Temp 97.9 F 08/18/23 10:55 Pulse 79 08/18/23 10:55 Resp 20 08/18/23 10:55 BP 116/58 L 08/18/23 10:55 Pulse Ox 98 08/18/23 10:55 O2 Del Method Nasal Cannula 08/18/23 10:55 O2 Flow Rate 2.5 08/18/23 10:55 Oxygen Flow Rate 3 08/17/23 12:55 BMI result Body Mass Index 31.8 GENERAL APPEARANCE: On supplemental oxygen. No acute distress. NECK: no carotid bruit, mild jugular venous distention. SKIN: no suspicious lesions, warm and dry. HEART: Systolic murmur aortic area, regular rate and rhythm. LUNGS: Diminished at bases. Mild expiratory wheezes. ABDOMEN: soft, nontender. EXTREMITIES: Mild edema. PERIPHERAL PULSES: equal. NEUROLOGIC: No gross deficits, AAO X 3 Objective Labs and Meds 08/18/23 05:55 08/18/23 05:55 Lab results: Laboratory Results - last 24 hr 08/17/23 08/17/23 08/17/23 13:18 14:19 15:29 WBC 13.0 H RBC 4.45 L Hgb 13.1 L Hct 41.3 L MCV 92.8 MCH 29.4 MCHC 31.7 RDW 12.6 Plt Count 215 D MPV 9.7 Immature Gran % (Auto) 0.5 H Neut % (Auto) 85.8 H Lymph % (Auto) 4.8 L [place] % (Auto) 7.7 Eos % (Auto) 0.6 Baso % (Auto) 0.6 Lymph # (Auto) 0.6 L [place] # (Auto) 1.0 Eos # (Auto) 0.1 Baso # (Auto) 0.1 Abs Immat Gran (auto) 0.06 H Absolute Neuts (auto) 11.2 H Absolute Nucleated RBC 0.000 Nucleated RBC % (auto) 0.0 APTT 22.4 L Sodium 141 Potassium 4.0 Chloride 106 Carbon Dioxide 29 Anion Gap 10 L BUN 18 H Creatinine 1.10 Estim Creat Clear Calc 49.7 Estimated GFR > 60 Random Glucose 129 H Lactic Acid 1.2 Calcium 9.3 Total Bilirubin 0.6 AST 23 ALT 22 Alkaline Phosphatase 81 Troponin I High Sens 13.0 D B-Natriuretic Peptide 122 H Total Protein 7.4 Albumin 3.9 Lipase 14 Urine Color Yellow Urine Appearance Clear Urine pH 5.0 Ur Specific [place] 1.010 Urine Protein Negative Urine Glucose (UA) Negative Urine Ketones Negative Urine Blood Trace H Urine Nitrite Negative Ur Leukocyte Esterase Moderate (2+) H Urine RBC 0-2 Urine WBC >50 H Ur Squamous Epith Cells 0-2 Urine Bacteria Trace Hyaline Casts 0-2 Influenza Type A (PCR) NEGATIVE Influenza Type B (PCR) NEGATIVE RSV RNA Qual (PCR) NEGATIVE SARS-CoV-2 RNA (RT-PCR) NEGATIVE 08/18/23 05:55 WBC 20.8 H RBC 4.75 Hgb 13.7 L Hct 43.1 MCV 90.7 MCH 28.8 MCHC 31.8 RDW 12.5 Plt Count 232 MPV 9.9 Immature Gran % (Auto) Neut % (Auto) Lymph % (Auto) [place] % (Auto) Eos % (Auto) Baso % (Auto) Lymph # (Auto) [place] # (Auto) Eos # (Auto) Baso # (Auto) Abs Immat Gran (auto) Absolute Neuts (auto) Absolute Nucleated RBC 0.000 Nucleated RBC % (auto) 0.0 APTT Sodium 141 Potassium 3.7 Chloride 103 Carbon Dioxide 27 Anion Gap 15 BUN 23 H Creatinine 1.16 Estim Creat Clear Calc 47.1 Estimated GFR > 60 Random Glucose 199 H Lactic Acid Calcium 9.9 D Total Bilirubin AST ALT Alkaline Phosphatase Troponin I High Sens B-Natriuretic Peptide Total Protein Albumin Lipase Urine Color Urine Appearance Urine pH Ur Specific [place] Urine Protein Urine Glucose (UA) Urine Ketones Urine Blood Urine Nitrite Ur Leukocyte Esterase Urine RBC Urine WBC Ur Squamous Epith Cells Urine Bacteria Hyaline Casts Influenza Type A (PCR) Influenza Type B (PCR) RSV RNA Qual (PCR) SARS-CoV-2 RNA (RT-PCR) Imaging Radiologist's impression: Impressions Chest X-Ray 08/17/23 13:00 IMPRESSION: Low lung volumes. Mildly increased interstitial markings favoring mild interstitial edema versus over atypical infectious process. Progress Note: A&P Assessment and plan (1) CHF exacerbation: Status: Acute Plan 83-year-old gentleman with CHF exacerbation. Diuresing and clinically improving. Still has some volume and would continue IV diuretics today. Can be changed to p.o. Lasix 40 mg daily from tomorrow morning. He also has some wheezing which is due to underlying lung disease. Agree with steroids. Not improving consider Z-Edward or doxycycline short course. Thank you for allowing me to participate in the care of your patient. Please feel free to contact me if you have any questions. Time Spent With Patient Time: Total time managing care of this patient today ____ minutes. Progress Note: Quality Stroke Does the patient have a stroke diagnosis?: No Procedures Date of Service Date of Service: 08/18/23
--- NOTE | 2023-08-18 11:27 | PC.NURSE ---
PT IS HAVING A BEDSIDE ECHOCARDIOGRAM DONE.
--- NOTE | 2023-08-18 12:05 | P.PNIM_ITS ---
Subjective Subjective Date of Service: 08/18/23 Interval History: f/u on exacerbation of heart failure feels better, still with some swelling in legs and some sob Physical Exam 2 Vital Signs: Vital Signs: Last Vital Signs Temp 97.9 F 08/18/23 10:55 Pulse 79 08/18/23 10:55 Resp 20 08/18/23 10:55 BP 116/58 L 08/18/23 10:55 Pulse Ox 98 08/18/23 10:55 O2 Del Method Nasal Cannula 08/18/23 10:55 O2 Flow Rate 2.5 08/18/23 10:55 Oxygen Flow Rate 3 08/17/23 12:55 BMI result Body Mass Index 31.8 General: AO X 3, no acute distress Resp: rales at bases, some wheezing CVS: S1,S2,RRR, 1+ pedal edema GI: +BS, NT, no distention Skin: No rash Neuro: motor grossly intact Psych: appropriate affect Objective Data Active Medications Acetaminophen (Acetaminophen 325 Mg Tablet) 650 mg PO Q6H PRN PRN Reason: Pain, Mild (Pain Scale 1-3) Albuterol Sulfate (Albuterol Sulfate (0.083%) 2.5 Mg/3 Ml Vial.Neb) 2.5 mg INHALE Q6H PRN PRN Reason: for dyspnea Albuterol Sulfate (Albuterol Sulfate 90 Mcg 8 Gm Inhaler) 2 puff INHALE QID PRN PRN Reason: Shortness Of Breath Albuterol/Ipratropium (Albuterol/Iprat 2.5/0.5mg 3 Ml Ampul.Neb) 3 ml INHALE RQ4H WHILE AWAKE [facility] Last Admin: 08/18/23 11:19 Dose: Not Given Documented By: PAM Non-Admin Reason: in procedure Aspirin (Aspirin Enteric Coated 81 Mg Tablet.) 81 mg PO DAILY [facility] Last Admin: 08/18/23 09:24 Dose: 81 mg Documented By: GALILEO Atenolol (Atenolol 25 Mg Tablet) 25 mg PO DAILY [facility]; Protocol Last Admin: 08/18/23 09:24 Dose: 25 mg Documented By: GALILEO Enoxaparin Sodium (Enoxaparin Sodium 40 Mg/0.4 Ml Syringe) 40 mg SUBCUT Q24H [facility] Last Admin: 08/17/23 16:30 Dose: 40 mg Documented By: SANDRA Fluticasone Propionate (Fluticasone Propionate Nasal 16 Gm [place]) 1 spray NOSTRIL-B DAILY PRN PRN Reason: Congestion Fluticasone/Umeclidinium/Vilanterol (Fluticasone/Umeclidinium/Vilanterol 100/62.5/25 Blst.W.Dev) 1 puff INHALE RDAILY [facility] Last Admin: 08/18/23 08:40 Dose: 1 puff Documented By: PAM Furosemide (Furosemide 40 Mg/4 Ml Vial) 40 mg IVPUSH DAILY [facility]; Protocol Last Admin: 08/18/23 09:36 Dose: 40 mg Documented By: GALILEO Gabapentin (Gabapentin 100 Mg Capsule) 200 mg PO TID [facility] Last Admin: 08/18/23 09:24 Dose: 200 mg Documented By: GALILEO Isosorbide Mononitrate (Isosorbide Mononitrate 60 Mg Tab.Er.24h) 60 mg PO DAILY [facility]; Protocol Last Admin: 08/18/23 09:24 Dose: 60 mg Documented By: GALILEO Methylprednisolone Sodium Succinate (Methylprednisolone Sod Succ 40 Mg/Ml Vial) 40 mg IVPUSH Q12H [facility] Last Admin: 08/18/23 09:27 Dose: 40 mg Documented By: GALILEO Montelukast Sodium (Montelukast Sodium 10 Mg Tablet) 10 mg PO DAILY [facility] Last Admin: 08/18/23 09:24 Dose: 10 mg Documented By: GALILEO Omeprazole (Omeprazole 20 Mg Capsule.) 20 mg PO DAILY@0630 [facility] Last Admin: 08/18/23 06:22 Dose: 20 mg Documented By: MARINA Ondansetron HCl (Ondansetron Hcl 4 Mg/2 Ml Vial) 4 mg IVPUSH Q8H PRN PRN Reason: Nausea and Vomiting Oxycodone HCl (Oxycodone Hcl Immed Release 5 Mg Tablet) 1 mg PO QID PRN PRN Reason: Pain, Severe (Pain Scale 7-10) Senna (Sennosides 8.6 Mg Tablet) 17.2 mg PO BEDTIME PRN PRN Reason: Constipation Sodium Chloride (0.9 % Sodium Chloride Flush 3 Ml Syringe) 3 ml IVFLUSH QSHIFT [facility] Last Admin: 08/18/23 09:26 Dose: Not Given Documented By: GALILEO Non-Admin Reason: done Trolamine Salicylate (Trolamine Salicylate 10 % Cream 85 Gm Tube) 1 appl TOPICAL TID PRN PRN Reason: Muscle Pain Labs 08/18/23 05:55 08/18/23 05:55 Labs: Laboratory Results - last 24 hr 08/17/23 08/17/23 08/17/23 13:18 14:19 15:29 MCV 92.8 MCH 29.4 MCHC 31.7 RDW 12.6 Plt Count 215 D MPV 9.7 Immature Gran % (Auto) 0.5 H Neut % (Auto) 85.8 H Lymph % (Auto) 4.8 L [place] % (Auto) 7.7 Eos % (Auto) 0.6 Baso % (Auto) 0.6 Lymph # (Auto) 0.6 L [place] # (Auto) 1.0 Eos # (Auto) 0.1 Baso # (Auto) 0.1 Abs Immat Gran (auto) 0.06 H Absolute Neuts (auto) 11.2 H Absolute Nucleated RBC 0.000 Nucleated RBC % (auto) 0.0 APTT 22.4 L Anion Gap 10 L Estim Creat Clear Calc 49.7 Estimated GFR > 60 Random Glucose 129 H Lactic Acid 1.2 Calcium 9.3 Total Bilirubin 0.6 AST 23 ALT 22 Alkaline Phosphatase 81 Troponin I High Sens 13.0 D B-Natriuretic Peptide 122 H Total Protein 7.4 Albumin 3.9 Lipase 14 Urine Color Yellow Urine Appearance Clear Urine pH 5.0 Ur Specific [place] 1.010 Urine Protein Negative Urine Glucose (UA) Negative Urine Ketones Negative Urine Blood Trace H Urine Nitrite Negative Ur Leukocyte Esterase Moderate (2+) H Urine RBC 0-2 Urine WBC >50 H Ur Squamous Epith Cells 0-2 Urine Bacteria Trace Hyaline Casts 0-2 Influenza Type A (PCR) NEGATIVE Influenza Type B (PCR) NEGATIVE RSV RNA Qual (PCR) NEGATIVE SARS-CoV-2 RNA (RT-PCR) NEGATIVE 08/18/23 05:55 MCV 90.7 MCH 28.8 MCHC 31.8 RDW 12.5 Plt Count 232 MPV 9.9 Immature Gran % (Auto) Neut % (Auto) Lymph % (Auto) [place] % (Auto) Eos % (Auto) Baso % (Auto) Lymph # (Auto) [place] # (Auto) Eos # (Auto) Baso # (Auto) Abs Immat Gran (auto) Absolute Neuts (auto) Absolute Nucleated RBC 0.000 Nucleated RBC % (auto) 0.0 APTT Anion Gap 15 Estim Creat Clear Calc 47.1 Estimated GFR > 60 Random Glucose 199 H Lactic Acid Calcium 9.9 D Total Bilirubin AST ALT Alkaline Phosphatase Troponin I High Sens B-Natriuretic Peptide Total Protein Albumin Lipase Urine Color Urine Appearance Urine pH Ur Specific [place] Urine Protein Urine Glucose (UA) Urine Ketones Urine Blood Urine Nitrite Ur Leukocyte Esterase Urine RBC Urine WBC Ur Squamous Epith Cells Urine Bacteria Hyaline Casts Influenza Type A (PCR) Influenza Type B (PCR) RSV RNA Qual (PCR) SARS-CoV-2 RNA (RT-PCR) Microbiology Microbiology Results: Microbiology 08/17/23 Unknown Urine Culture - Preliminary Urine clean catch - Urine mon top Culture in progress. Assessment and Plan (1) CHF exacerbation: Status: Acute (2) Congestive heart disease: Status: Acute (3) Chronic lung disease: Status: Acute Plan 83 year old male with history of copd with chronic hypoxemic respiratory failure on 2.5L supplemental O2 at baseline, BPH, htn, CAD with history of NSTEMI, history of polio with chronic LUE and LLE weakness admitted for CHF exacerbation #Acute CHF exacerbation, likely systolic heart failure -responding to diuresusis -IV lasix 40mg for one more day then PO tomorrow -strict I&O -daily weights -cardiac diet -echo -cardiology input noted -follow renal function/lytes #Mild COPD exacerbation with chronic hypoxemic respiratory failure -will continue methylprednisolone 40mg BID, change to prednisone as appropriate -duonebs -continue maintenance inhalers -neg covid, flu, rsv -Add Doxy for possivle component of bronchitis #Worsening Leukocytosis likely from steroid #HTN -bp soft 95/53 on admission -hold antihypertensives for now, resume as appropriate #CAD -continue asa. Hold isosorbide and atenolol for now #BPH -continue flomax DVT prophylaxis- lovenox full code need for for management of chf exacerbation requiring ov diuresis and close monitoring of i&o as well as monitoring of renal function/lytes Quality Stroke Does the patient have a stroke diagnosis?: No VTE Prior VTE?: No VTE Risk Level:: Medical - moderate - high VTE Device Contraindication: Treatment Not Indicated VTE Drug Contraindication: N/A - Med Ordered
[2023-08-18] MEDS: Doxycycline Monohydrate 100 MG CAPSULE PO ×2 (12:29→21:13)
--- NOTE | 2023-08-18 13:20 | MHC.CM.PN ---
Met with patient in regards to discharge planning. Patient lives with his and her sister. Patient's , Nirali, has some memory issues. Patient ambulates independently and is active with [facility]. New HCP completed, signed and witnessed. Original given to patient. Copy placed in chart. IMM explained and signed. Patient has not received any Covid vaccines. Anticipate patient will return home with resumption of [facility]. Family will transport patient home when medically stable. Continue to monitor for d/c needs.
--- NOTE | 2023-08-18 14:50 | PC.NURSE ---
RN TO RN REPORT GIVEN TO LOPEZ(OVERFLOW UNIT). PT AWARE OF PLAN OF CARE.
[2023-08-18] MEDS: Enoxaparin Sodium 40 MG/0.4 ML SYRINGE SUBCUT (16:09)
[2023-08-18] MEDS: 0.9 % Sodium Chloride Flush 3 ML SYRINGE IVFLUSH (16:23)
--- NOTE | 2023-08-18 19:17 | PC.NURSE ---
This RN assumed pt care @ 1900. Pt ca&ox4, no signs of distress. Family at bedside. RT with pt. Plan of care ongoing.
--- NOTE | 2023-08-18 20:00 | PC.NURSE ---
Family no longer at bedside.
--- NOTE | 2023-08-18 21:19 | PC.NURSE ---
Pt medicated per jul. Plan of care ongoing.
[2023-08-19] VITALS (9 sets, daily range): BP systolic 115–136; BP diastolic 60–77; PULSE 65–92; RESP 16–20; TEMP 36.1–37.1; O2SAT 91–95
[2023-08-19] MEDS: 0.9 % Sodium Chloride Flush 3 ML SYRINGE IVFLUSH ×3 (01:00→14:48)
[2023-08-19] MEDS: Omeprazole 20 MG CAPSULE.DR PO (06:11)
--- NOTE | 2023-08-19 06:12 | PC.NURSE ---
Pt medicated per mar. Yu requested from pharmacy. Plan of care ongoing.
[2023-08-19 06:39] LABS: Hematocrit 40.1 % (42.0-52.0); Hemoglobin 13.1 g/dl (14.0-18.0); Mean Corpuscular HGB Conc 32.7 g/dl (31.0-36.0); Mean Corpuscular Hemoglobin 29.4 pg (27.0-33.0); Mean Corpuscular Volume 89.9 fL (80.0-98.0); Mean Platelet Volume 9.8 fL (9.4-12.4); Platelet Count 221 X10*3/uL (160-400); Red Blood Count 4.46 X10*6/uL (4.60-5.80); Red Cell Distribution Width 12.8 % (11.0-16.0); White Blood Count 22.6 X10*3/uL (4.8-10.8)
--- NOTE | 2023-08-19 07:23 | PC.NURSE ---
PT SEEN BY DR. BUTLER, PT AWARE OF PLAN OF CARE.
--- NOTE | 2023-08-19 07:30 | PC.NURSE ---
PT IS A/O X 4 NO C/O SOB/ANA NOTED SPEAKS IN FULL SENTENCES. HOB UP. LUNGS - DIMINISHED ALL LOBES. C/O /10 GEN BODY PAIN TO BE MED WITH OXYCODNE AND APAP.. PT IS MAINTAINING IS 02 SAT ON 1L/M VIA N/C. [place] PATENT AND DRAINING. PT CONTINUES ON LASIX IV. PT AWARE OF PLAN OF CARE. WILL CONTINUE TO MONITOR.
[2023-08-19] MEDS: Isosorbide Mononitrate 60 MG TAB.ER.24H PO (07:47)
[2023-08-19] MEDS: atenoloL 25 MG TABLET PO (07:47)
[2023-08-19] MEDS: vancomycin/NS 2,000 MG/500 ML PLAST..BAG 250 MG IV (07:48)
[2023-08-19] MEDS: Montelukast Sodium 10 MG TABLET PO (07:48)
[2023-08-19] MEDS: Doxycycline Monohydrate 100 MG CAPSULE PO ×2 (07:48→21:06)
[2023-08-19] MEDS: Gabapentin 100 MG CAPSULE 200 MG PO ×3 (07:48→21:06)
[2023-08-19] MEDS: methylPREDNISolone Sod Succ 40 MG/ML VIAL IVPUSH ×2 (07:50→21:06)
[2023-08-19] MEDS: Furosemide 40 MG/4 ML VIAL IVPUSH (07:50)
[2023-08-19] MEDS: Acetaminophen 325 MG TABLET 650 MG PO ×2 (08:01→14:43)
[2023-08-19] MEDS: Aspirin Enteric Coated 81 MG TABLET.DR PO (08:02)
[2023-08-19] MEDS: oxyCODONE HCl Immed Release 5 MG TABLET 1 MG PO (08:02)
[2023-08-19] MEDS: Fluticasone/Umeclidinium/Vilanterol 100/62.5/25 BLST.W.DEV 1 PUFF INHALE (08:17)
[2023-08-19] MEDS: Albuterol/Iprat 2.5/0.5MG 3 ML AMPUL.NEB INHALE ×4 (08:17→19:33)
--- NOTE | 2023-08-19 09:05 | PHA.PROG ---
Admission Date/Time: August 17, 2023 15:05 Indication: SKIN Weight in k.915 kg Serum Creatinine - Last 168 Hours 08/17/23 08/18/23 13:18 05:55 Creatinine 1.10 1.16 Estimated CrCl and GFR - Last 168 Hours 08/17/23 08/18/23 13:18 05:55 Estim Creat Clear Calc 49.7 47.1 Estimated GFR > 60 > 60 Vancomycin Loading Dose: 2000 Current Vancomycin Dosing Regimen: 1250 Q 24 Vancomycin Monitoring using AUC goal of 400 - 600 range with trough as surrogate marker: 492 Date and Time for next Vancomycin Level to be drawn: 08/20 @ 0600 Pharmacist Comments on Vancomycin Plan: Vancomycin dosing will take advantage of [employer] as a clinical decision support tool that uses Bayesian modeling to calculate individual patient's pharmacokinetic parameters and forecast the patient's drug concentration time course with the target goal AUC 24 range of 400 - 600 mg/L/hr.
--- NOTE | 2023-08-19 09:16 | PM.PNCARD ---
Subjective Subjective Date of Service: 08/19/23 Interval history: Seen and examined at bedside. Echo report discussed. Physical Exam Vital Signs: Last Vital Signs Temp 97.7 F 08/19/23 08:00 Pulse 80 08/19/23 08:00 Resp 20 08/19/23 08:00 BP 136/73 08/19/23 08:00 Pulse Ox 91 L 08/19/23 08:00 O2 Del Method Room Air 08/19/23 08:00 O2 Flow Rate 1 08/19/23 06:13 Oxygen Flow Rate 3 08/17/23 12:55 BMI result Body Mass Index 31.8 GENERAL APPEARANCE: No acute distress. NECK: no carotid bruit, no jugular venous distention. SKIN: no suspicious lesions, warm and dry. HEART: Systolic murmur aortic area, regular rate and rhythm. LUNGS: Diminished at bases. Mild expiratory wheezes. ABDOMEN: soft, nontender. EXTREMITIES: Mild edema. PERIPHERAL PULSES: equal. NEUROLOGIC: No gross deficits, AAO X 3 Objective Labs and Meds 08/19/23 06:34 08/18/23 05:55 Lab results: Laboratory Results - last 24 hr 08/19/23 06:34 WBC 22.6 H RBC 4.46 L Hgb 13.1 L Hct 40.1 L MCV 89.9 MCH 29.4 MCHC 32.7 RDW 12.8 Plt Count 221 MPV 9.8 Absolute Nucleated RBC 0.000 Nucleated RBC % (auto) 0.0 Progress Note: A&P Assessment and plan (1) CHF exacerbation: Status: Acute (2) Aortic stenosis: Status: Acute Plan 83 male with CHF and aortic stenosis. Echo showing P-LFLG severe . Clinically improving with diuresis. Change to PO lasix tomorrow. Will do further work up for as outpatient. Time Spent With Patient Time: Total time managing care of this patient today ____ minutes. Progress Note: Quality Stroke Does the patient have a stroke diagnosis?: No Procedures Date of Service Date of Service: 08/19/23
--- NOTE | 2023-08-19 11:41 | HO.PM.IMPN ---
Subjective Subjective Date of Service: 08/19/23 Interval History: f/u on exacerbation of heart failure No sob, swelling in legs is better Physical Exam Vital Signs: Vital Signs: Last Vital Signs Temp 97.7 F 08/19/23 08:00 Pulse 80 08/19/23 11:16 Resp 20 08/19/23 11:16 BP 136/73 08/19/23 08:00 Pulse Ox 91 L 08/19/23 08:00 O2 Del Method Room Air 08/19/23 08:00 O2 Flow Rate 1 08/19/23 06:13 Oxygen Flow Rate 3 08/17/23 12:55 BMI result Body Mass Index 31.8 General: AO X 3, no acute distress Resp: rales at bases, some wheezing CVS: S1,S2,RRR, trace pedal edema GI: +BS, NT, no distention Skin: No rash Neuro: motor grossly intact Psych: appropriate affect Objective Data Active Medications Acetaminophen (Acetaminophen 325 Mg Tablet) 650 mg PO Q6H PRN PRN Reason: Pain, Mild (Pain Scale 1-3) Last Admin: 08/19/23 08:01 Dose: 650 mg Documented By: GALILEO Albuterol Sulfate (Albuterol Sulfate (0.083%) 2.5 Mg/3 Ml Vial.Neb) 2.5 mg INHALE Q6H PRN PRN Reason: for dyspnea Albuterol Sulfate (Albuterol Sulfate 90 Mcg 8 Gm Inhaler) 2 puff INHALE QID PRN PRN Reason: Shortness Of Breath Albuterol/Ipratropium (Albuterol/Iprat 2.5/0.5mg 3 Ml Ampul.Neb) 3 ml INHALE RQ4H WHILE AWAKE [facility] Last Admin: 08/19/23 11:09 Dose: 3 ml Documented By: PAM Aspirin (Aspirin Enteric Coated 81 Mg Tablet.Dr) 81 mg PO DAILY [facility] Last Admin: 08/19/23 08:02 Dose: 81 mg Documented By: GALILEO Atenolol (Atenolol 25 Mg Tablet) 25 mg PO DAILY [facility]; Protocol Last Admin: 08/19/23 07:47 Dose: 25 mg Documented By: GALILEO Doxycycline Monohydrate (Doxycycline Monohydrate 100 Mg Capsule) 100 mg PO BID [facility] Last Admin: 08/19/23 07:48 Dose: 100 mg Documented By: GALILEO Enoxaparin Sodium (Enoxaparin Sodium 40 Mg/0.4 Ml Syringe) 40 mg SUBCUT Q24H [facility] Last Admin: 08/18/23 16:09 Dose: 40 mg Documented By: KELSEY Fluticasone Propionate (Fluticasone Propionate Nasal 16 Gm [place]) 1 spray NOSTRIL-B DAILY PRN PRN Reason: Congestion Fluticasone/Umeclidinium/Vilanterol (Fluticasone/Umeclidinium/Vilanterol 100/62.5/25 Blst.W.Dev) 1 puff INHALE RDAILY [facility] Last Admin: 08/19/23 08:17 Dose: 1 puff Documented By: PAM Furosemide (Furosemide 40 Mg/4 Ml Vial) 40 mg IVPUSH DAILY [facility]; Protocol Last Admin: 08/19/23 07:50 Dose: 40 mg Documented By: GALILEO Gabapentin (Gabapentin 100 Mg Capsule) 200 mg PO TID [facility] Last Admin: 08/19/23 07:48 Dose: 200 mg Documented By: GALILEO Vancomycin HCl 1,250 mg/ (Sodium Chloride) 250 mls @ 166.667 mls/hr IV Q24H [facility] Isosorbide Mononitrate (Isosorbide Mononitrate 60 Mg Tab.Er.24h) 60 mg PO DAILY [facility]; Protocol Last Admin: 08/19/23 07:47 Dose: 60 mg Documented By: GALILEO Methylprednisolone Sodium Succinate (Methylprednisolone Sod Succ 40 Mg/Ml Vial) 40 mg IVPUSH Q12H [facility] Last Admin: 08/19/23 07:50 Dose: 40 mg Documented By: GALILEO Montelukast Sodium (Montelukast Sodium 10 Mg Tablet) 10 mg PO DAILY [facility] Last Admin: 08/19/23 07:48 Dose: 10 mg Documented By: GALILEO Omeprazole (Omeprazole 20 Mg Capsule.) 20 mg PO DAILY@0630 [facility] Last Admin: 08/19/23 06:11 Dose: 20 mg Documented By: GERALDINE Ondansetron HCl (Ondansetron Hcl 4 Mg/2 Ml Vial) 4 mg IVPUSH Q8H PRN PRN Reason: Nausea and Vomiting Oxycodone HCl (Oxycodone Hcl Immed Release 5 Mg Tablet) 1 mg PO QID PRN PRN Reason: Pain, Severe (Pain Scale 7-10) Last Admin: 08/19/23 08:02 Dose: 1 mg Documented By: GALILEO Pharmacy Consult (Consult Rx Vancomycin Dosing) 1 each MISCELLANE DAILY PRN PRN Reason: Consult order Senna (Sennosides 8.6 Mg Tablet) 17.2 mg PO BEDTIME PRN PRN Reason: Constipation Sodium Chloride (0.9 % Sodium Chloride Flush 3 Ml Syringe) 3 ml IVFLUSH QSHIFT [facility] Last Admin: 08/19/23 07:48 Dose: 3 ml Documented By: GALILEO Trolamine Salicylate (Trolamine Salicylate 10 % Cream 85 Gm Tube) 1 appl TOPICAL TID PRN PRN Reason: Muscle Pain Labs 08/19/23 06:34 08/18/23 05:55 Labs: Laboratory Results - last 24 hr 08/19/23 06:34 MCV 89.9 MCH 29.4 MCHC 32.7 RDW 12.8 Plt Count 221 MPV 9.8 Absolute Nucleated RBC 0.000 Nucleated RBC % (auto) 0.0 Microbiology Microbiology Results: Microbiology 08/17/23 Unknown Urine Culture - Preliminary Urine clean catch - Urine mon top Staphylococcus species 08/17/23 13:17 Blood Culture - Final Blood - Venous Coag negative Staphylococcus 08/17/23 13:22 Blood Culture - Preliminary Blood - Venous No growth after 24 hours. Assessment and Plan (1) CHF exacerbation: Status: Acute (2) Congestive heart disease: Status: Acute (3) Chronic lung disease: Status: Acute Plan 83 year old male with history of copd with chronic hypoxemic respiratory failure on 2.5L supplemental O2 at baseline, BPH, htn, CAD with history of NSTEMI, history of polio with chronic LUE and LLE weakness admitted for CHF exacerbation #Acute CHF exacerbation, likely systolic heart failure -responding to diuresusis -IV lasix 40mg to PO today -strict I&O -daily weights -cardiac diet -echo -cardiology input noted -follow renal function/lytes #Mild COPD exacerbation with chronic hypoxemic respiratory failure -will continue methylprednisolone 40mg BID, change to prednisone today -duonebs -continue maintenance inhalers -neg covid, flu, rsv -Add Doxy for possivle component of bronchitis #Worsening Leukocytosis likely from steroid, blood culture show 2 coag negative staph, patient not toxic, got a dose of Vanco and has been on Doxy, no indication for Abx at this time #Urine culture is growing Staph species--significance unkown at this time, will discuss with ID #[id number]--BP within normal, on Atenolol, Norvasc has been on hold and restart tomorrow #CAD -continue asa. Hold isosorbide and atenolol for now #BPH -continue flomax DVT prophylaxis- lovenox full code need for for management of chf exacerbation requiring ov diuresis and close monitoring of i&o as well as monitoring of renal function/lytes Quality Stroke Does the patient have a stroke diagnosis?: No VTE Prior VTE?: No VTE Risk Level:: Medical - moderate - high VTE Device Contraindication: Treatment Not Indicated VTE Drug Contraindication: N/A - Med Ordered
--- NOTE | 2023-08-19 13:43 | PC.NURSE ---
PHYSICAL THERAPY AT BEDSIDE, PT AWARE OF PLAN OF CARE.
[2023-08-19] MEDS: Enoxaparin Sodium 40 MG/0.4 ML SYRINGE SUBCUT (14:44)
--- NOTE | 2023-08-19 14:55 | PC.NURSE ---
FEMALE FAMILY MEMBER AT BEDSIDE VISITING
--- NOTE | 2023-08-19 15:25 | PC.NURSE ---
DR. SOFIA AT BEDSIDE, PT/FFAMILY AWARE OF PLAN OF CARE.
--- NOTE | 2023-08-19 22:37 | W.PM.IDCN ---
History of Present Illness Data of Consult Service Date: 08/19/23 Requesting physician: Lee Rico Primary Care Provider: Marvin Carey MD [facility] Reason for consult: shortness of breath He presents with shortness of breath over last two days. He has no fever or chills. He has no dysuria. No one [place] [address] but has been on steroids. He has staph species in urine and coagulase negative staph in blood. Review of Systems Review of Systems: Yes all other systems are reviewed and are negative [facility] Past Medical History Medical History (Updated 08/19/23 @ 22:44 by Dinora Ayala MD) Bacteriuria Chronic respiratory failure Pre-op chest exam Inferior [place] Pneumonitis Pulmonary nodules BPH (benign prostatic hyperplasia) COPD (chronic obstructive pulmonary disease) Pneumonia HTN (hypertension) Family History Family History Mother CAD (coronary artery disease) Heart attack Father HTN (hypertension) Brother H/O heart bypass surgery Sister Afib Family history: reviewed and not pertinent Surgical History Surgical History History of carpal tunnel surgery of right wrist Hx of cardiac cath Social History Social History Household Members: Spouse Housing: House Do you presently have visiting nurse or other home services: Yes Alcohol intake: never Patient Tobacco Use Status: Former Tobacco user Quit Date: 20 years ago Tobacco use type: Cigarette Advance Directives Date on File: 08/18/23 service: No Current occupational status: retired Meds Allergies Allergy/AdvReac Type Severity Reaction Status Date / Time ibuprofen Allergy Mild Gastrointestinal Verified 08/13/23 13:03 Upset Active Medications: Current Medications Acetaminophen (Acetaminophen 325 Mg Tablet) 650 mg PO Q6H PRN PRN Reason: Pain, Mild (Pain Scale 1-3) Last Admin: 08/19/23 14:43 Dose: 650 mg Albuterol Sulfate (Albuterol Sulfate (0.083%) 2.5 Mg/3 Ml Vial.Neb) 2.5 mg INHALE Q6H PRN PRN Reason: for dyspnea Albuterol Sulfate (Albuterol Sulfate 90 Mcg 8 Gm Inhaler) 2 puff INHALE QID PRN PRN Reason: Shortness Of Breath Albuterol/Ipratropium (Albuterol/Iprat 2.5/0.5mg 3 Ml Ampul.Neb) 3 ml INHALE RQ4H WHILE AWAKE [facility] Last Admin: 08/19/23 19:33 Dose: 3 ml Aspirin (Aspirin Enteric Coated 81 Mg Tablet.) 81 mg PO DAILY [facility] Last Admin: 08/19/23 08:02 Dose: 81 mg Atenolol (Atenolol 25 Mg Tablet) 25 mg PO DAILY [facility]; Protocol Last Admin: 08/19/23 07:47 Dose: 25 mg Doxycycline Monohydrate (Doxycycline Monohydrate 100 Mg Capsule) 100 mg PO BID [facility] Last Admin: 08/19/23 21:06 Dose: 100 mg Enoxaparin Sodium (Enoxaparin Sodium 40 Mg/0.4 Ml Syringe) 40 mg SUBCUT Q24H [facility] Last Admin: 08/19/23 14:44 Dose: 40 mg Fluticasone Propionate (Fluticasone Propionate Nasal 16 Gm [place]) 1 spray NOSTRIL-B DAILY PRN PRN Reason: Congestion Fluticasone/Umeclidinium/Vilanterol (Fluticasone/Umeclidinium/Vilanterol 100/62.5/25 Blst.W.Dev) 1 puff INHALE RDAILY [facility] Last Admin: 08/19/23 08:17 Dose: 1 puff Furosemide (Furosemide 40 Mg Tablet) 40 mg PO DAILY [facility]; Protocol Gabapentin (Gabapentin 100 Mg Capsule) 200 mg PO TID [facility] Last Admin: 08/19/23 21:06 Dose: 200 mg Vancomycin HCl 1,250 mg/ (Sodium Chloride) 250 mls @ 166.667 mls/hr IV Q24H [facility] Isosorbide Mononitrate (Isosorbide Mononitrate 60 Mg Tab.Er.24h) 60 mg PO DAILY [facility]; Protocol Last Admin: 08/19/23 07:47 Dose: 60 mg Montelukast Sodium (Montelukast Sodium 10 Mg Tablet) 10 mg PO DAILY [facility] Last Admin: 08/19/23 07:48 Dose: 10 mg Omeprazole (Omeprazole 20 Mg Capsule.) 20 mg PO DAILY@0630 [facility] Last Admin: 08/19/23 06:11 Dose: 20 mg Ondansetron HCl (Ondansetron Hcl 4 Mg/2 Ml Vial) 4 mg IVPUSH Q8H PRN PRN Reason: Nausea and Vomiting Oxycodone HCl (Oxycodone Hcl Immed Release 5 Mg Tablet) 1 mg PO QID PRN PRN Reason: Pain, Severe (Pain Scale 7-10) Last Admin: 08/19/23 08:02 Dose: 1 mg Pharmacy Consult (Consult Rx Vancomycin Dosing) 1 each MISCELLANE DAILY PRN PRN Reason: Consult order Senna (Sennosides 8.6 Mg Tablet) 17.2 mg PO BEDTIME PRN PRN Reason: Constipation Sodium Chloride (0.9 % Sodium Chloride Flush 3 Ml Syringe) 3 ml IVFLUSH [facility] Last Admin: 08/19/23 14:48 Dose: 3 ml Trolamine Salicylate (Trolamine Salicylate 10 % Cream 85 Gm Tube) 1 appl TOPICAL TID PRN PRN Reason: Muscle Pain Home Medications Medication Instructions Recorded Confirmed Last Taken Type atenolol 25 mg tablet 25 mg PO DAILY 06/19/20 08/17/23 08/17/23 History aspirin 81 mg tablet,delayed 81 mg PO DAILY 11/19/20 08/17/23 08/17/23 History release pantoprazole 20 mg tablet,delayed 20 mg PO DAILY@0630 11/19/20 08/17/23 08/17/23 History release (Protonix) acetaminophen 325 mg tablet 650 mg PO Q6H PRN Pain (Scale 12/12/20 08/17/23 Unknown History (Tylenol) Score 1-3) fluticasone propionate 50 1 spray intranasal DAILY PRN 02/12/21 08/17/23 08/17/23 History mcg/actuation nasal Congestion spray,suspension oxycodone-acetaminophen 5 mg-325 1 tab PO QID PRN Pain (Scale Score 02/12/21 08/17/23 08/17/23 History mg tablet 1-3) nebulizers 10/15/22 Unknown History Oxygen Home Use 01/08/23 Unknown History gabapentin 100 mg capsule 200 mg PO TID 04/10/23 08/17/23 08/17/23 History albuterol sulfate 2.5 mg/3 mL 2.5 mg inhalation Q6H PRN for 08/17/23 08/17/23 08/17/23 History (0.083 %) solution for nebulization dyspnea methyl salicylate-menthol topical 1 ea topical TID PRN Muscle Pain 08/17/23 08/17/23 Unknown History ointment Physical Exam Vital Signs: Vital Signs: Last Vital Signs Temp 97.4 F 08/19/23 21:54 Pulse 83 08/19/23 21:54 Resp 16 08/19/23 21:54 BP 131/77 08/19/23 21:54 Pulse Ox 92 08/19/23 21:54 O2 Del Method Nasal Cannula 08/19/23 21:54 O2 Flow Rate 2 08/19/23 21:54 Oxygen Flow Rate 3 08/17/23 12:55 BMI result Body Mass Index 31.8 Resp: Effort & Inspection: abnormal respiratory pattern Results Labs 08/19/23 06:34 08/18/23 05:55 Labs: Short CBC 08/19/23 Range/Units 06:34 WBC 22.6 H (4.8-10.8) X10*3/uL Hgb 13.1 L (14.0-18.0) g/dl Hct 40.1 L (42.0-52.0) % Plt Count 221 (160-400) X10*3/uL Microbiology Microbiology Results: Microbiology 08/17/23 13:22 Blood - Venous Blood Culture - Preliminary No growth after 48 hours. 08/17/23 Unknown Urine clean catch - Urine mon top Urine Culture - Preliminary Staphylococcus species 08/17/23 13:17 Blood - Venous Blood Culture - Final Coag negative Staphylococcus Assessment and Plan (1) CHF exacerbation: Status: Acute (2) Chronic lung disease: Status: Acute (3) Bacteriuria: Status: Acute He has bacteria in urine and blood ,both likely contaminants. He has no signs of sepsis at this time. On further questioning he denies any urinary symptoms. He has most likely COPD exacerbation Plan Stop antibiotics at this time
[2023-08-20] VITALS (8 sets, daily range): BP systolic 123–145; BP diastolic 66–70; PULSE 69–84; RESP 14–18; TEMP 36.1–36.7; O2SAT 94–97
[2023-08-20] MEDS: 0.9 % Sodium Chloride Flush 3 ML SYRINGE IVFLUSH ×4 (00:28→21:12)
[2023-08-20] MEDS: Omeprazole 20 MG CAPSULE.DR PO (06:34)
[2023-08-20 07:18] LABS: Hematocrit 41.8 % (42.0-52.0); Hemoglobin 13.4 g/dl (14.0-18.0); Mean Corpuscular HGB Conc 32.1 g/dl (31.0-36.0); Mean Corpuscular Volume 90.5 fL (80.0-98.0); Mean Platelet Volume 10.6 fL (9.4-12.4); Platelet Count 243 X10*3/uL (160-400); Red Blood Count 4.62 X10*6/uL (4.60-5.80); Red Cell Distribution Width 12.8 % (11.0-16.0); White Blood Count 17.5 X10*3/uL (4.8-10.8)
[2023-08-20] MEDS: Gabapentin 100 MG CAPSULE 200 MG PO ×3 (08:00→21:12)
[2023-08-20] MEDS: Aspirin Enteric Coated 81 MG TABLET.DR PO (08:01)
[2023-08-20] MEDS: atenoloL 25 MG TABLET PO (08:02)
[2023-08-20] MEDS: Isosorbide Mononitrate 60 MG TAB.ER.24H PO (08:03)
[2023-08-20] MEDS: Furosemide 40 MG TABLET PO (08:03)
[2023-08-20] MEDS: Montelukast Sodium 10 MG TABLET PO (08:03)
[2023-08-20] MEDS: vancomycin HCL 1,250 MG in 0.9 % Sodium Chloride 250 ML 166.67 MG IV (08:09)
[2023-08-20] MEDS: Albuterol/Iprat 2.5/0.5MG 3 ML AMPUL.NEB INHALE ×4 (08:28→20:43)
[2023-08-20 08:33] LABS: Creatinine Clr Calc Pharmacy 51.5; Estimated Glomerular Filt Rate > 60
[2023-08-20] MEDS: Fluticasone/Umeclidinium/Vilanterol 100/62.5/25 BLST.W.DEV 1 PUFF INHALE (09:00)
--- NOTE | 2023-08-20 10:56 | HE.PHANOTE ---
VANCO DOSE ADJUSTMENT BASED ON SCR DOSE CONTINUED 1250 Q 24. NEXT LEVEL 08/20 @ 0600
[2023-08-20] MEDS: Enoxaparin Sodium 40 MG/0.4 ML SYRINGE SUBCUT (16:09)
--- NOTE | 2023-08-20 18:26 | HO.PM.IMPN ---
Subjective Subjective Date of Service: 08/20/23 Interval History: f/u on exacerbation of heart failure No sob, not much swelling in the legs Physical Exam Vital Signs: Vital Signs: Last Vital Signs Temp 97.6 F 08/20/23 15:03 Pulse 69 08/20/23 16:25 Resp 16 08/20/23 16:25 BP 132/70 08/20/23 15:03 Pulse Ox 94 08/20/23 15:03 O2 Del Method Nasal Cannula 08/20/23 15:03 O2 Flow Rate 2 08/20/23 15:03 Oxygen Flow Rate 3 08/17/23 12:55 BMI result Body Mass Index 31.8 General: AO X 3, no acute distress Resp: rales at bases, some wheezing CVS: S1,S2,RRR, trace pedal edema GI: +BS, NT, no distention Skin: No rash Neuro: motor grossly intact Psych: appropriate affect Objective Data Active Medications Acetaminophen (Acetaminophen 325 Mg Tablet) 650 mg PO Q6H PRN PRN Reason: Pain, Mild (Pain Scale 1-3) Last Admin: 08/19/23 14:43 Dose: 650 mg Documented By: GALILEO Albuterol Sulfate (Albuterol Sulfate (0.083%) 2.5 Mg/3 Ml Vial.Neb) 2.5 mg INHALE Q6H PRN PRN Reason: for dyspnea Albuterol Sulfate (Albuterol Sulfate 90 Mcg 8 Gm Inhaler) 2 puff INHALE QID PRN PRN Reason: Shortness Of Breath Albuterol/Ipratropium (Albuterol/Iprat 2.5/0.5mg 3 Ml Ampul.Neb) 3 ml INHALE RQ4H WHILE AWAKE [facility] Last Admin: 08/20/23 16:21 Dose: 3 ml Documented By: SALO Aspirin (Aspirin Enteric Coated 81 Mg Tablet.) 81 mg PO DAILY [facility] Last Admin: 08/20/23 08:01 Dose: 81 mg Documented By: BRITTNI Atenolol (Atenolol 25 Mg Tablet) 25 mg PO DAILY [facility]; Protocol Last Admin: 08/20/23 08:02 Dose: 25 mg Documented By: BRITTNI Enoxaparin Sodium (Enoxaparin Sodium 40 Mg/0.4 Ml Syringe) 40 mg SUBCUT Q24H [facility] Last Admin: 08/20/23 16:09 Dose: 40 mg Documented By: ESTEBAN Fluticasone Propionate (Fluticasone Propionate Nasal 16 Gm [place]) 1 spray NOSTRIL-B DAILY PRN PRN Reason: Congestion Fluticasone/Umeclidinium/Vilanterol (Fluticasone/Umeclidinium/Vilanterol 100/62.5/25 Blst.W.Dev) 1 puff INHALE RDAILY [facility] Last Admin: 08/20/23 09:00 Dose: 1 puff Documented By: EVELIO Furosemide (Furosemide 40 Mg Tablet) 40 mg PO DAILY [facility]; Protocol Last Admin: 08/20/23 08:03 Dose: 40 mg Documented By: BRITTNI Gabapentin (Gabapentin 100 Mg Capsule) 200 mg PO TID [facility] Last Admin: 08/20/23 16:05 Dose: 200 mg Documented By: ESTEBAN Isosorbide Mononitrate (Isosorbide Mononitrate 60 Mg Tab.Er.24h) 60 mg PO DAILY [facility]; Protocol Last Admin: 08/20/23 08:03 Dose: 60 mg Documented By: BRITTNI Montelukast Sodium (Montelukast Sodium 10 Mg Tablet) 10 mg PO DAILY [facility] Last Admin: 08/20/23 08:03 Dose: 10 mg Documented By: BRITTNI Omeprazole (Omeprazole 20 Mg Capsule.Dr) 20 mg PO DAILY@0630 [facility] Last Admin: 08/20/23 06:34 Dose: 20 mg Documented By: BRYAN Ondansetron HCl (Ondansetron Hcl 4 Mg/2 Ml Vial) 4 mg IVPUSH Q8H PRN PRN Reason: Nausea and Vomiting Oxycodone HCl (Oxycodone Hcl Immed Release 5 Mg Tablet) 1 mg PO QID PRN PRN Reason: Pain, Severe (Pain Scale 7-10) Last Admin: 08/19/23 08:02 Dose: 1 mg Documented By: GALILEO Pharmacy Consult (Consult Rx Vancomycin Dosing) 1 each MISCELLANE DAILY PRN PRN Reason: Consult order Prednisone (Prednisone 20 Mg Tablet) 20 mg PO DAILY [facility] Senna (Sennosides 8.6 Mg Tablet) 17.2 mg PO BEDTIME PRN PRN Reason: Constipation Sodium Chloride (0.9 % Sodium Chloride Flush 3 Ml Syringe) 3 ml IVFLUSH [facility]SHIFT [facility] Last Admin: 08/20/23 16:12 Dose: 3 ml Documented By: ESTEBAN Trolamine Salicylate (Trolamine Salicylate 10 % Cream 85 Gm Tube) 1 appl TOPICAL TID PRN PRN Reason: Muscle Pain Labs 08/20/23 06:15 08/20/23 06:15 Labs: Laboratory Results - last 24 hr 08/20/23 06:15 MCV 90.5 MCH 29.0 MCHC 32.1 RDW 12.8 Plt Count 243 MPV 10.6 Absolute Nucleated RBC 0.000 Nucleated RBC % (auto) 0.0 Estim Creat Clear Calc 51.5 Estimated GFR > 60 Microbiology Microbiology Results: Microbiology 08/17/23 Unknown Urine Culture - Final Urine clean catch - Urine mon top Staphylococcus epidermidis 08/17/23 13:22 Blood Culture - Preliminary Blood - Venous No growth after 48 hours. Assessment and Plan (1) CHF exacerbation: Status: Acute (2) Congestive heart disease: Status: Acute (3) Chronic lung disease: Status: Acute Plan 83 year old male with history of copd with chronic hypoxemic respiratory failure on 2.5L supplemental O2 at baseline, BPH, htn, CAD with history of NSTEMI, history of polio with chronic LUE and LLE weakness admitted for CHF exacerbation #Acute CHF exacerbation, likely systolic heart failure -responded to IV Lasix, now on oral Lasix, continue monitoring #Mild COPD exacerbation with chronic hypoxemic respiratory failure -was on solumedrol, change to PO prednisone -duonebs -continue maintenance inhalers -neg covid, flu, rsv -Added Doxy for possible bronchitis, but now off #Worsening Leukocytosis likely from steroid, blood culture show 1/2 coag negative staph, Urine culture also showed staph species and no urinary symptoms, reviewed with ID and all Abxstopped. #HTN--BP within normal, on Atenolol, Norvasc has been on hold #CAD -continue asa, continue Atenoolol, ASA, imdure #BPH -continue flomax DVT prophylaxis- lovenox full code need for for management of chf exacerbation requiring ov diuresis and close monitoring of i&o as well as monitoring of renal function/lytes PT recommends home with services Quality Stroke Does the patient have a stroke diagnosis?: No VTE Prior VTE?: No VTE Risk Level:: Medical - moderate - high VTE Device Contraindication: Treatment Not Indicated VTE Drug Contraindication: N/A - Med Ordered
[2023-08-20] MEDS: predniSONE 20 MG TABLET PO (19:51)
[2023-08-21] VITALS (7 sets, daily range): BP systolic 135–145; BP diastolic 71–78; PULSE 69–93; RESP 16–18; TEMP 36.2–36.6; O2SAT 92–97
[2023-08-21] MEDS: Omeprazole 20 MG CAPSULE.DR PO (05:35)
[2023-08-21 06:31] LABS: Vancomycin Random 10.3 mcg/mL (15-20)
[2023-08-21] MEDS: Fluticasone/Umeclidinium/Vilanterol 100/62.5/25 BLST.W.DEV 1 PUFF INHALE (07:36)
[2023-08-21] MEDS: Albuterol/Iprat 2.5/0.5MG 3 ML AMPUL.NEB INHALE ×3 (07:36→16:07)
[2023-08-21] MEDS: Furosemide 40 MG TABLET PO (07:49)
[2023-08-21] MEDS: predniSONE 20 MG TABLET PO (07:49)
[2023-08-21] MEDS: Montelukast Sodium 10 MG TABLET PO (07:49)
[2023-08-21] MEDS: atenoloL 25 MG TABLET PO (07:49)
[2023-08-21] MEDS: Isosorbide Mononitrate 60 MG TAB.ER.24H PO (07:49)
[2023-08-21] MEDS: Aspirin Enteric Coated 81 MG TABLET.DR PO (07:49)
[2023-08-21] MEDS: Gabapentin 100 MG CAPSULE 200 MG PO (07:50)
[2023-08-21] MEDS: 0.9 % Sodium Chloride Flush 3 ML SYRINGE IVFLUSH (07:50)
--- NOTE | 2023-08-21 09:51 | PM.DS ---
DS: Providers Provider Date of Service: 08/21/23 Date of admission: 08/17/23 15:05 Primary care physician: Marvin Carey MD Consults: 08/17/23 15:09 Consult to Cardiology Routine Consulting Provider: [facility] Reason for consultation: chf exacerbation 08/19/23 11:48 Consult to Infectious Diseases Routine Consulting Provider: [facility] Reason for consultation: staph in urine,coag neg in blood what is the significance DS: Diagnosis Discharge Diagnosis (1) CHF exacerbation: Status: Acute (2) Congestive heart disease: Status: Acute (3) Chronic lung disease: Status: Acute DS: Summary Hospital Course Hospital Course: admission hpi Chief Complaint: sob 83 year old male with history of copd with chronic hypoxemic respiratory failure on 2.5L supplemental O2 at baseline, BPH, htn, CAD with history of NSTEMI, history of polio with chronic LUE and LLE weakness presented to the ED for evaluation of dyspnea that started this morning. He reports dyspnea at rest, with exertion, denies orthopnea or PND. Reports on and off edema in the ble. has chronic intermittent cough but denies any sputum production. Does not weigh himself regularly. Does reports eating a lot of sodium with chocolate covered raisins, potato chips, chocolate. NO fevers, chills, st, abd pain, n/v/d, urinary symptoms, lightheadedness, palpitations, or chest pain. No sick contacts. He is a former smoker. No alcohol use or drug use. On arrival, VSS. There is a leukocytosis of 13.0. Renal function and lytes normal. Trop 13. BNP 122. Negative for COVID-19, flu, rsv. CXR shows mildly increased interstitial markings favoring interstitial edema. EKG shows NSR, rate 97, no acute ischemic changes. Per EMS, received 125mg IV methylprednisolone, albuterol nebs, and magnesium. In the ED, given 40mg IV lasix. Hospital course: #Acute CHF exacerbation with preserved EF. He was treated with IV Lasix under the direction of cardiology, his symptoms have improved, leg edema resolved. He was seen by cardiology with advised to increase his Lasix to 40 mg daily from 20 mg daily, continue Atenolol # COPD exacerbation with chronic hypoxemic respiratory failure on home O2, negative flu, RSV and covid. Treated with IV steroid, then PO steroid, bronchodilators by Neb and baseline home oxygen and doxycyline for possible bronchitis. His symptoms have improved. Will complete 2 more days of Prednisone and 3 days of doxycyline for possible bronchitis.. WBC initially 13 went up to 22 likely from steroid and now down to just 13. #Worsening Leukocytosis likely from steroid, blood culture show 1/2 coag negative staph, Urine culture also showed staph species and no urinary symptoms, reviewed with ID and recommended no antibiotics.. He was initially treated with Vancomycin #HTN--BP within normal, on Atenolol, Norvas to be restarted and Lasix #CAD -continue asa, continue Atenoolol, ASA, imdur #BPH -continue flomax Dispo: Home with [facility] Chelly feels well and would like to go home Time Attestation Discharge Coordination Time (in mins): 40 Quality: Safe Use of Opioids Does Pt have an Active Cancer Diagnosis on the Problem List?: No Quality: Stroke Does the patient have a stroke diagnosis?: No Physical Exam Vital Signs: Vital Signs: Last Vital Signs Temp 97.2 F 08/21/23 07:21 Pulse 73 08/21/23 07:38 Resp 16 08/21/23 07:38 BP 145/75 H 08/21/23 07:21 Pulse Ox 97 08/21/23 07:21 O2 Del Method Nasal Cannula 08/21/23 07:21 O2 Flow Rate 2 08/21/23 07:21 Oxygen Flow Rate 3 08/17/23 12:55 BMI result Body Mass Index 31.8 General: AO X 3, no acute distress Resp: CTA bilateral CVS: S1,S2,RRR GI: +BS, NT, no distention Skin: No rash Neuro: motor grossly intact Psych: appropriate affect DS: Data Data Completed and Pending Labs on day of discharge: Laboratory Results - last 24 hr 08/21/23 05:50 Hold Purple Top SEE NOTE Random Vancomycin 10.3 L Preliminary micro results at discharge 08/17/23 13:22 Blood Culture - Preliminary Blood - Venous No growth after 48 hours. Discharge Plan Discharge Anticipated Discharge Date/Time: 08/21/23 09:52 Patient Disposition: Home Health Service Discharge Diagnosis: COPD exacerbation, acute on chronic heart failure Referrals: [facility] [Outside] - 3-5 Days ([facility]) Marvin Carey MD [Primary Care Provider] - 1 Week Discharge Medications: New furosemide 40 mg Tablet 40 mg PO DAILY Qty: 90 0RF Protocol: Hold for SBP< HOLD for SBP < : 90 prednisone 20 mg Tablet 20 mg PO DAILY Qty: 2 0RF Rx Instructions: next dose 08/21 doxycycline monohydrate 100 mg Capsule 100 mg PO Q12H Qty: 3 0RF Continued isosorbide mononitrate 60 mg tablet extended release 24 hr 60 mg PO DAILY Qty: 90 3RF atenolol 25 mg Tablet 25 mg PO DAILY amlodipine [Norvasc] 10 mg tablet 10 mg PO DAILY Qty: 30 0RF BenGay Ointment 1 ea TOPICAL TID PRN (Reason: Muscle Pain) albuterol sulfate 2.5 mg /3 mL (0.083 %) solution for nebulization 2.5 mg inhalation Q6H PRN (Reason: for dyspnea) montelukast 10 mg tablet 10 mg PO DAILY 30 Days Qty: 30 11RF aspirin 81 mg tablet,delayed release (DR/EC) 81 mg PO DAILY pantoprazole [Protonix] 20 mg tablet,delayed release (DR/EC) 20 mg PO DAILY@0630 gabapentin 100 mg capsule 200 mg PO TID acetaminophen [Tylenol] 325 mg tablet 650 mg PO Q6H PRN (Reason: Pain (Scale Score 1-3)) oxycodone-acetaminophen 5-325 mg tablet 1 tab PO QID PRN (Reason: Pain (Scale Score 1-3)) fluticasone propionate 50 mcg/actuation spray,suspension 1 spray intranasal DAILY PRN (Reason: Congestion) (DME) nebulizers [facility] See Rx Instructions .ROUTE Rx Instructions: As directed (DME) Oxygen Home Use Kit See Rx Instructions .ROUTE Rx Instructions: As directed Trelegy Ellipta 100-62.5-25 mcg blister with device 1 ea inhalation DAILY 30 Days Qty: 60 11RF albuterol sulfate [ProAir HFA] 90 mcg/actuation HFA aerosol inhaler 2 puff INHALATION QID PRN (Reason: Shortness Of Breath) Qty: 8.5 11RF Discontinued furosemide 20 mg tablet 20 mg PO DAILY 90 Days Qty: 90 0RF Discharge Orders: Discharge Order (Routine); Ordered 08/21/23 Ordered By: Lee Mlapah Diet: Advance to usual diet Activity on Discharge: As tolerated Stand Alone Forms: Patient Portal Discharge page Care Plan Goals: Recovering from COPD and heart failure. Health Concerns: Chronic heart failure COPD with acute exacerbation now resolved Plan of Treatment: continue taking your medications as before follow-up with your doctor within a week, call for appointment. When she may use of oxygen as before Assessment: see above
[2023-08-21 09:57] LABS: MANUAL DIFF FLAG NO
[2023-08-21 09:59] LABS: Basophils Percent Auto 0.1 % (0-2); Eosinophils Percent Auto 0.1 % (0-4); Hematocrit 43.7 % (42.0-52.0); Imm Gran Abs Auto 0.12 X10*3/uL (0.00-0.03); Lymphocytes Percent Auto 8.4 % (20-40); Mean Corpuscular Hemoglobin 29.3 pg (27.0-33.0); Mean Corpuscular Volume 91.4 fL (80.0-98.0); Mean Platelet Volume 10.7 fL (9.4-12.4); Monocytes Absolute Auto 1.2 X10*3/uL (0.1-1.2); Monocytes Percent Auto 10.4 % (2-11); Neutrophils Absolute Auto 9.3 x10*3/uL (2.0-8.3); Platelet Count 241 X10*3/uL (160-400); Red Blood Count 4.78 X10*6/uL (4.60-5.80); Red Cell Distribution Width 12.7 % (11.0-16.0); White Blood Count 11.7 X10*3/uL (4.8-10.8)
--- NOTE | 2023-08-21 10:18 | W.MHC.F2F ---
Service Date Service Date: 08/21/23 Encounter Date of encounter: 08/21/23 Reasons for Services Signs and symptoms assessed: heart failure and copd exacerbation causing shortness of breah Reason for [facility]: medication management and teach disease management Homebound: Leaving the home is medically contraindicated at this time without the asist of a device and/or another person due th the listed conditions above and below. Reason homebound: shortness of breath with minimal effort Homebound supporting statement: homebund due to heart failure and copd with shortness with minimal effort and therefore needs the assistance of another person Certification: Based on the above findings, I certify that this patient is confined to the home and needs intermittent [facility] care, physical therapy and/or speech therapy, or continues to need occupational therapy. The patient is under my care, and I have initiated the establishment of the plan of care. The patient will be followed by a physician who will periodically review the plan of care. Time Spent With Patient Time: Total time managing care of this patient today ____ minutes.
[2023-08-21] MEDS: Doxycycline Monohydrate 100 MG CAPSULE PO (10:39)
[2023-08-21] MEDS: amLODIPine Besylate 10 MG TABLET PO (10:39)
--- NOTE | 2023-08-21 10:40 | MHC.CM.PN ---
DP: IMM DELIVERED. PT HAS BEEN MEDICALLY CLEARED FOR DC HOME WITH [facility]. [facility] NOTIFIED OF TODAY'S DC. RN AWARE. PT HAS OWN RIDE HOME.
== END 2023-08-21 16:31 | disposition home health service (06) | DRG 190 ==
LOC: HO.ED 16:39 → HO.EDOVER 16:50 → HO.S3 08-19 19:47
PROVIDERS: Admitting Provider Physician Assistant; Emergency Provider Emergency Medicine Emergency Medical Services; PCP Internal Medicine; Visit Provider Internal Medicine
DX: J44.1 Chronic obstructive pulmonary disease with (acute) exacerbation (principal); I50.21 Acute systolic (congestive) heart failure; J96.11 Chronic respiratory failure with hypoxia; G81.94 Hemiplegia, unspecified affecting left nondominant side; I35.0 Nonrheumatic aortic (valve) stenosis; N40.0 Benign prostatic hyperplasia without lower urinary tract symptoms; I25.10 Atherosclerotic heart disease of native coronary artery without angina pectoris; B91 Sequelae of poliomyelitis; Z99.81 Dependence on supplemental oxygen; I11.0 Hypertensive heart disease with heart failure; Z20.822 Contact with and (suspected) exposure to COVID-19; Z87.891 Personal history of nicotine dependence; Z79.51 Long term (current) use of inhaled steroids; Z79.82 Long term (current) use of aspirin; Z79.899 Other long term (current) drug therapy
CPT/HCPCS: 0241U; 36415; 71045; 80048; 80053; 80202; 81001; 82565; 83605; 83690; 83880; 84484; 85025; 85027; 85730; 87040; 87086; 87088; 87147; 87186; 87205; 93005; 93306; 94640; 97162; 99285; J1650; J1940; J2920; J3370; J3371; Q9957

== ENCOUNTER → 2023-08-17 12:49 | Outpatient (BNV) | payer MEDICARE, MEDICAID, SELFPAY | PROVIDERS: Emergency Provider Emergency Medicine Emergency Medical Services; PCP Internal Medicine; Visit Provider Internal Medicine Cardiovascular Disease | DX: R94.31 Abnormal electrocardiogram [ECG] [EKG] (principal) | CPT/HCPCS: 93010 ==

== ENCOUNTER → 2023-08-17 13:57 | Outpatient (BNV) | payer MEDICARE, MEDICAID, SELFPAY | PROVIDERS: Emergency Provider Emergency Medicine Emergency Medical Services; PCP Internal Medicine; Visit Provider Internal Medicine Cardiovascular Disease | DX: I50.9 Heart failure, unspecified (principal) | CPT/HCPCS: 99223; 99232 ==

== ENCOUNTER 2023-08-17 15:05 | Outpatient (BNV) | payer MEDICARE, SELFPAY | END 2023-08-18 07:00 | PROVIDERS: Admitting Provider Physician Assistant; Emergency Provider Emergency Medicine Emergency Medical Services; PCP Internal Medicine; Visit Provider Internal Medicine Cardiovascular Disease | DX: I35.0 Nonrheumatic aortic (valve) stenosis (principal) | CPT/HCPCS: 93306 ==

== ENCOUNTER → 2023-08-17 15:05 | Outpatient (BNV) | payer MEDICARE, SELFPAY | PROVIDERS: Admitting Provider Physician Assistant; Emergency Provider Emergency Medicine Emergency Medical Services; PCP Internal Medicine; Visit Provider Internal Medicine | DX: I50.9 Heart failure, unspecified (principal); J98.4 Other disorders of lung; R82.71 Bacteriuria | CPT/HCPCS: 99222 ==

== ENCOUNTER → 2023-08-17 15:05 | Outpatient (BNV) | payer MEDICARE, SELFPAY | PROVIDERS: Admitting Provider Physician Assistant; Emergency Provider Emergency Medicine Emergency Medical Services; PCP Internal Medicine; Visit Provider Physician Assistant | DX: I50.9 Heart failure, unspecified (principal); J98.4 Other disorders of lung | CPT/HCPCS: 99223; 99232; 99239; G0180 ==

== ENCOUNTER → 2023-09-22 23:59 | Outpatient (BNV) | payer MEDICARE, SELFPAY | PROVIDERS: PCP Internal Medicine; Visit Provider Internal Medicine Cardiovascular Disease | DX: I50.30 Unspecified diastolic (congestive) heart failure (principal); I25.82 Chronic total occlusion of coronary artery | CPT/HCPCS: 93460; 93566; 99152 ==

== ENCOUNTER 2023-10-02 14:10 | Outpatient (AMB) | payer MEDICARE, SELFPAY ==
--- NOTE | 2023-10-02 14:47 | MHC.OFFVIS ---
Vital Signs 10/02/23 14:49 Height 5 ft 3 in Weight 186 lb BMI 32.9 BP 128/68 Blood Pressure Location Lt brachial Position Sitting Pulse 76 Pulse Source Pulse Oximeter Pulse Oximetry (%) 98 Oxygen Delivery Method Room Air Intake Visit Reasons: 2 week fu cardiac cath (KM) Allergies ibuprofen Allergy (Mild, Verified 08/13/23 13:03) Gastrointestinal Upset Medication List - Last Reconciled 10/02/23 by Rachel Hernandez NP acetaminophen (Tylenol) 650 mg PO Q6H PRN albuterol sulfate 2.5 mg inhalation Q6H PRN albuterol sulfate 90 mcg/actuation (ProAir HFA) 2 puffs inhalation QID PRN amlodipine (Norvasc) 10 mg PO DAILY aspirin 81 mg PO DAILY atenolol 25 mg PO DAILY doxycycline monohydrate 100 mg PO Q12H fluticasone propionate 50 mcg/actuation 1 spray intranasal DAILY PRN [id number] 100-62.5-25 mcg (Trelegy Ellipta) 1 ea inhalation DAILY 30 days furosemide 40 mg See Protocol PO DAILY gabapentin 200 mg PO TID isosorbide mononitrate ER 60 mg PO DAILY methyl salicylate-menthol 1 ea topical TID PRN montelukast 10 mg PO DAILY 30 days nebulizers As directed oxycodone-acetaminophen 5-325 mg 1 tab PO QID PRN Oxygen Home Use As directed pantoprazole (Protonix) 20 mg PO DAILY@0630 prednisone 20 mg PO DAILY HPI Comments Details: 83-year-old male presents today after cardiac catherization. He reports he is doing well. He reports he is still short of breath, gets a rare chest discomfort, and denies any dizziness. He is interested in having a TAVR. Right radial site healing appropriately. [facility], LAT[facility] Medical History (Updated 10/05/23 @ 09:38 by Rachel Hernandez NP) Aortic stenosis Bacteriuria Congestive heart disease Chronic lung disease Chronic respiratory failure Pre-op chest exam Inferior [place] Pneumonitis Pulmonary nodules BPH (benign prostatic hyperplasia) COPD (chronic obstructive pulmonary disease) Pneumonia HTN (hypertension) Surgical History (Updated 10/05/23 @ 09:39 by Rachel Hernandez NP) S/P cardiac catheterization History of carpal tunnel surgery of right wrist Hx of cardiac cath Family History Mother CAD (coronary artery disease) Heart attack Father HTN (hypertension) Brother H/O heart bypass surgery Sister Afib Social History Household Members: Spouse Housing: House Do you presently have visiting nurse or other home services: Yes Alcohol intake: never Patient Tobacco Use Status: Former Tobacco user Quit Date: 20 years ago Tobacco use type: Cigarette Advance Directives Date on File: 08/18/23 service: No Current occupational status: retired Review of Systems Const Denies weakness ENT Denies dizziness Card Denies chest pain, Denies chest pain with activity, Denies syncope, Denies rapid heart rate, Denies pedal edema, Denies edema, Denies leg edema, Denies lightheadedness, Denies palpitations, Denies dyspnea, Denies dyspnea on exertion and Denies orthopnea Resp Denies cough, Denies dyspnea and Denies dyspnea on exertion GI Denies hematochezia and Denies change in stool character Musc Denies abnormal gait, Denies muscle cramps, Denies muscle weakness, Denies numbness, Denies radiating pain into limb and Denies tingling Neuro Denies abnormal gait, Denies dizziness, Denies syncope, Denies numbness, Denies tingling and Denies weakness Endo Denies palpitations Physical Exam Vital Signs: Last Vital Signs Pulse 76 10/02/23 14:49 BP 128/68 10/02/23 14:49 Pulse Ox 98 10/02/23 14:49 Oxygen Delivery Method Room Air 10/02/23 14:49 BMI result Body Mass Index 32.9 Assessment & Plan Assessment & Plan (1) Aortic stenosis: Code(s): I35.0 - Nonrheumatic aortic (valve) stenosis Category: Medical (2) S/P cardiac catheterization: Code(s): Z98.890 - Other specified postprocedural states Category: Surgical Plan Cath showed: Elevated LVEDP 27 to 30 mmHg. Mean gradient across aortic valve 25 mmHg. Aortic valve area 0.81. Stroke-volume index 30. Pulm capital wedge pressure 21 mmHg, RV 35/10 mean 15, PA 35/19 mean 25, RA of 12 mmHg. Proximal RCA BLOCK ENGRAVER with [id number] collaterals. No significant disease in the LAD or circumflex. Moderate first diagonal stenosis. Right radial site healing appropriately without pain, drainage, or erythema. Discussed about he TAVR procedure. He is agreeable to plan. Orders: Referrals Cardiac Surgery Referral I35.0 - Nonrheumatic aortic (valve) stenosis Coding Level of Care Code Est Pt Level 3 (93264) Diagnoses Aortic stenosis I35.0 S/P cardiac catheterization Z98.890
[2023-10-02 14:49] VITALS: BP 128/68; PULSE 76; O2SAT 98; BMI 32.9
== END 2023-10-02 15:08 | disposition home or self-care (01) ==
PROVIDERS: PCP Internal Medicine; Visit Provider Nurse Practitioner
DX: I35.0 Nonrheumatic aortic (valve) stenosis (principal); Z98.890 Other specified postprocedural states
CPT/HCPCS: 99213

== ENCOUNTER → 2023-10-02 14:10 | Outpatient (BNVA) | payer MEDICARE, SELFPAY | PROVIDERS: PCP Internal Medicine; Visit Provider Nurse Practitioner | DX: I35.0 Nonrheumatic aortic (valve) stenosis (principal); Z98.890 Other specified postprocedural states | CPT/HCPCS: 99212 ==

== ENCOUNTER 2023-10-08 10:03 | Outpatient (REF) | payer MEDICARE, SELFPAY ==
[2023-10-08 13:40] LABS: Alanine Aminotransferase 18 U/L (0-40); Anion Gap 12 (12-20); Blood Urea Nitrogen 18 mg/dL (9-16); Carbon Dioxide 30 mmol/L (22-29); Chloride 105 mmol/L (96-108); Cholesterol 217 mg/dL (<200); Estimated Glomerular Filt Rate > 60; HDL Cholesterol 49 mg/dL (>40); LDL Cholesterol Calculated 139 mg/dL (<100); Potassium 3.9 mmol/L (3.3-5.1); Sodium 143 mmol/L (135-145); Triglycerides 145 mg/dL (<150)
== END 2023-10-08 10:04 | disposition home or self-care (01) ==
LOC: HO.HMGCLDS 10:03
PROVIDERS: Visit Provider Internal Medicine
DX: Z13.6 Encounter for screening for cardiovascular disorders (principal); I10 Essential (primary) hypertension; N18.2 Chronic kidney disease, stage 2 (mild)
CPT/HCPCS: 36415; 80051; 80061; 82565; 84460; 84520

== ENCOUNTER 2023-12-18 04:55 | Observation (INO) | payer MEDICARE, SELFPAY ==
[2023-12-18] VITALS (7 sets, daily range): BP systolic 124–144; BP diastolic 72–81; PULSE 71–98; RESP 16–19; TEMP 36.7–37.1; O2SAT 94–96; BMI 35.5
--- NOTE | ~2023-12-18 | MR_ITS ---
EXAMINATION: MR LUMBAR SPINE WITHOUT CONTRAST CLINICAL INFORMATION: Question radiculopathy. Cord compression. COMPARISON: None available. TECHNIQUE: MRI of the lumbar spine was obtained using routine sequences without contrast. FINDINGS: There are postoperative changes following posterior instrumented fusion at L4-S1. Artifact from the surgical hardware. There is a rightward convex scoliotic curvature of the lumbar spine. There is grade 1 retrolisthesis of L1 on L2 and L2 on L3. There is grade 1 spondylolytic anterolisthesis of L5 on S1 in the setting of chronic bilateral L5 pars defects. Modic type I endplate signal changes at T11-T12 and L1-L2. There is solid interbody arthrodesis at L4-L5. There is severe disc volume loss at L2-L3. Moderate disc volume loss at L1-L2. There are multilevel endplate osteophytes. Bilateral simple renal cyst for which no further imaging follow-up is warranted. There is paraspinal muscular atrophy bilaterally. There is a partially imaged disc osteophyte complex at T10-T11 that along with ligamentum flavum thickening and facet arthropathy result in suspected moderate central canal stenosis and significant flattening of the dorsal cord. If there is clinical concern for thoracic myelopathy, a dedicated thoracic spine MRI would be recommended for further assessment as this is not entirely included on this study. L1-L2: Grade 1 retrolisthesis. There is a left paracentral disc protrusion that compresses the traversing left L2 nerve root within the left subarticular zone and there is a left lateral disc osteophyte protrusion that compresses the extraforaminal left L1 nerve root. There are T2 signal changes within the left paravertebral soft tissues at L1-L2, likely inflammatory. L2-L3: Grade 1 retrolisthesis. Diffuse disc osteophyte complex and severe bilateral facet arthropathy, ligamentum flavum thickening, prominent dorsal epidural fat. Findings in concert result in moderate central canal stenosis, bilateral subarticular zone stenosis with mass effect on the traversing L3 nerve roots bilaterally, and moderate to severe bilateral foraminal stenosis with mass effect on the exiting L2 nerve roots bilaterally. L3-L4: There is a diffuse disc osteophyte complex and there is bilateral hypertrophic facet arthropathy. No central canal stenosis. Right lateral disc osteophyte and facet arthropathy result in severe right-sided foraminal stenosis with compression of the exiting right L3 nerve root. L4-L5: Solid interbody arthrodesis. Left hemilaminectomy changes. No central canal stenosis. Mild right-sided foraminal encroachment. L5-S1: There is grade 1 spondylolytic anterolisthesis of L5 on S1 in the setting of chronic bilateral L5 pars defects that along with uncovered disc osteophyte results in severe bilateral foraminal stenosis at L5-S1 with compression of the exiting L5 nerve roots bilaterally. MR/MR lumbar spine wo con IMPRESSION: * There is a partially imaged disc osteophyte complex at T10-T11 that along with ligamentum flavum thickening and facet arthropathy result in suspected moderate central canal stenosis and significant flattening of the dorsal cord. If there is clinical concern for thoracic myelopathy, a dedicated thoracic spine MRI would be recommended for further assessment as this is not entirely included on this study. * At L1-L2, there is a left paracentral disc protrusion that compresses the traversing left L2 nerve root within the left subarticular zone and there is a left lateral disc osteophyte protrusion that compresses the extraforaminal left L1 nerve root. There are T2 signal changes within the left paravertebral soft tissues at L1-L2, likely inflammatory. * At L2-L3, advanced multifactorial degenerative changes result in moderate central canal stenosis, bilateral subarticular zone stenosis with mass effect on the traversing L3 nerve roots bilaterally, and moderate to severe bilateral foraminal stenosis with mass effect on the exiting L2 nerve roots bilaterally. * At L3-L4, multifactorial degenerative changes result in severe right-sided foraminal stenosis with compression of the exiting right L3 nerve root. * There are postoperative changes following posterior instrumented fusion at L4-S1. There is grade 1 spondylolytic anterolisthesis of L5 on S1 in the setting of chronic bilateral L5 pars defects that along with uncovered disc osteophyte results in severe bilateral foraminal stenosis at L5-S1 with compression of the exiting L5 nerve roots bilaterally. There is no significant central canal stenosis at these levels.
--- NOTE | ~2023-12-18 | CT_ITS ---
EXAMINATION: CT ABDOMEN AND PELVIS WITHOUT CONTRAST CLINICAL INFORMATION: Left flank pain radiating left lower quadrant COMPARISON: CT pelvis from 07/06/2023, CT abdomen from 02/22/2021 TECHNIQUE: Multidetector volumetric imaging was performed from the superior aspect of the liver through the pubic symphysis. Sagittal and coronal reformatted images were obtained on the technologist's workstation. This CT examination was performed using dose optimization techniques as appropriate, variously including the following: *Automated exposure control *Adjustment of mA and/or kV according to patient size (this includes techniques or standardized protocols for targeted exams where dose is matched to indication/reason for exam; i.e. extremities or head) *Use of iterative reconstruction technique DLP: 713 mGy-cm FINDINGS: LUNG BASES: Bibasilar atelectasis. No pneumothorax. No large pleural effusion. Coronary artery calcifications are noted. LIVER, GALLBLADDER, AND BILIARY TREE: Liver is mildly enlarged. Redemonstration of multiple bilateral subcentimeter hepatic hypodense foci too small to characterize though statistically representing cysts. No focal hepatic lesion or biliary ductal dilatation is present. Gallbladder surgically absent with postsurgical dilatation of the common bile duct. PANCREAS: Fatty atrophy of the pancreas. SPLEEN: Unremarkable. ADRENAL GLANDS: Unremarkable. KIDNEYS AND URETERS: Bilateral renal hypodense foci are noted demonstrating fluid attenuation, statistically representing cysts, not requiring follow-up. Redemonstrated mildly complex focus in the lateral aspect of the right renal interpolar/lower pole region containing calcifications slightly exophytic measuring 2.2 cm, stable The kidneys are normal in size, shape, and attenuation. No hydronephrosis, hydroureter, or calculi seen. No perinephric stranding. BLADDER: Streak artifact limits evaluation of the inferior posterior margin of the urinary bladder though otherwise grossly unremarkable. GASTROINTESTINAL TRACT: Small to moderate hiatal hernia. Colonic diverticulosis without acute diverticulitis. The small and large bowel are unremarkable. The appendix is not definitively visualized. ABDOMINAL WALL: Small fat filled umbilical hernia. LYMPH NODES: No enlarged lymph nodes per size criteria. VASCULAR: Abdominal aorta is nonaneurysmal. Atherosclerotic calcifications of the abdominal aorta and its branches. PELVIC VISCERA: Limited evaluation the prostate secondary to streak artifact at this level. The prostate measures approximately 5.1 cm. OSSEOUS STRUCTURES: Osteopenia. Postsurgical changes status post posterior spinal fusion of L4 and S1, spinal hardware grossly intact. Grade 1 anterolisthesis of L5 and S1. Grade 1 retrolisthesis of L2 on L3 and to a lesser extent L3 on L4. Bilateral hip arthroplasty, grossly intact with streak artifact at this level. Degenerative arthropathy of the bilateral sacroiliac joints. CT/CT abdomen pelvis wo IV con IMPRESSION: 1. No acute process of the abdomen or pelvis identified. 2. Liver is mildly enlarged. Redemonstration of multiple bilateral subcentimeter hepatic hypodense foci too small to characterize though statistically representing cysts. 3. Status post cholecystectomy with postsurgical dilatation of the common bile duct. 4. Bilateral renal hypodense foci are noted demonstrating fluid attenuation, statistically representing cysts, not requiring follow-up. Redemonstrated mildly complex focus in the lateral aspect of the right renal interpolar/lower pole region containing calcifications slightly exophytic measuring 2.2 cm, stable. 5. Small to moderate hiatal hernia. 6. Colonic diverticulosis without acute diverticulitis. 7. Small fat filled umbilical hernia. 8. Osteopenia. Postsurgical changes status post posterior spinal fusion of L4 and S1, spinal hardware grossly intact. Grade 1 anterolisthesis of L5 and S1. Grade 1 retrolisthesis of L2 on L3 and to a lesser extent L3 on L4. Bilateral hip arthroplasty, grossly intact with streak artifact at this level.
--- NOTE | ~2023-12-18 | XR_ITS ---
EXAMINATION: XR CHEST CLINICAL INFORMATION: Rhonchi COMPARISON: Chest radiograph from 07/19/2023 TECHNIQUE: Frontal view of the chest was obtained. FINDINGS: Chronic appearing interstitial lung markings with mild bronchial thickening which may reflect infectious/inflammatory etiology. Slight bibasilar atelectasis. Bilateral low lung volumes. No pneumothorax. Trachea is midline. Cardiomediastinal silhouette is stable. No large pleural effusion. Degenerative changes of the thoracolumbar spine and bilateral glenohumeral joints. Cervical spinal hardware, grossly intact. Soft tissues are unremarkable. XR/XR chest 1V IMPRESSION: 1. Chronic appearing interstitial lung markings with mild bronchial thickening which may reflect infectious/inflammatory etiology. 2. Slight bibasilar atelectasis. 3. Bilateral low lung volumes.
--- NOTE | 2023-12-18 05:12 | ECG_ITS ---
Test Reason : chest px Blood Pressure : / mmHG Vent. Rate : 069 BPM Atrial Rate : 069 BPM P-R Int : 208 ms QRS Dur : 096 ms QT Int : 436 ms P-R-T Axes : 067 054 011 degrees QTc Int : 467 ms Sinus rhythm with Premature atrial complexes Otherwise normal ECG When compared with ECG of 17-AUG-2023 13:01, Premature atrial complexes are now Present Referred By: Generic ED Physician Electronically Signed By:ELADIA HILL
--- OUTSIDE RECORDS SUMMARY | 2023-12-18 05:43 | XMS_ITS | Continuity of Care Document ---
Author Organization [facility] ter Address [address] [place] [id number]- Care Team Providers Care Treater Helper Name Role Phone Marvin Carey MD Primary Care Physician [place] [facility] [place]): [place] - 05/12/[address] [address] Discharge Disposition: A-Transfer SNF Attending Physician: Jey Camacho MD Admitting Physician: Jey Camacho MD Referring Physician: Jey Camacho MD Allergies, Adverse Reactions, Alerts Substance Reaction Severity Status ibuprofen diff. breathing Persistent Severe Active Latex Skin irritation Active Medications acetaminophen 325 mg oral tablet 650 mg, By Mouth, Every 6 hours, Refills 0, Maintenance, 05/10/22 8:15:00 EST, Partial fill upon patient request if the prescription is for a schedule II opioid drug. Start Date: 05/10/22 Status: Ordered Acetaminophen Tablet 650 mg, Tablet, By Mouth, 05/12/22 10:30:00 EST Start Date: 05/12/22 Stop Date: 05/12/22 Status: Completed amLODIPine 10 mg oral tablet 10 mg, 1, tablet, By Mouth, Daily, Refills 0, Maintenance, 11/01/20 12:15:00 EDT, Partial fill uponpatient request if the prescription is for a schedule II opioid drug. Start Date: 11/01/20 Status: Ordered Aspirin Tablet 325 mg, By Mouth, 2 times a day, Refills 0, Maintenance, 05/10/22 8:15:00 EST, Partial fill upon patient request if the prescription is for a schedule II opioid drug. Start Date: 05/10/22 Status: Ordered atenolol 50 mg oral tablet 25 mg, 0.5, tablet, By Mouth, Daily, Maintenance, 10/22/17 11:02:55 EDT Start Date: 10/22/17 Status: Ordered Colace Capsule 100 mg, 1, capsule, By Mouth, 2 times a day, Refills 0, Maintenance, 05/10/22 8:16:00 EST, Partial fill upon patient request if the prescription is for a schedule II opioid drug. Start Date: 05/10/22 Status: Ordered Furosemide = 20 mg, Daily, 0 Refills, Maintenance, 08/26/21 12:53:00 EDT, Partial fill upon patient request ifthe prescription is for a schedule II opioid drug. Start Date: 08/26/21 Status: Ordered Gabapentin = 100 mg, By Mouth, 3 times a day, 0 Refills, Maintenance, 08/26/21 12:53:00 EDT, Partial fill uponpatient request if the prescription is for a schedule II opioid drug. Start Date: 08/26/21 Status: Ordered gabapentin 100 mg oral capsule 100 mg, Capsule, By Mouth, 05/12/22 9:00:00 EST Start Date: 05/12/22 Stop Date: 05/12/22 Status: Completed isosorbide mononitrate 30 mg oral tablet, extended release 60 mg, 2, tablet, By Mouth, Daily, Refills 0, Maintenance, 05/10/22 8:15:00 EST, Partial fill upon patient request if the prescription is for a schedule II opioid drug. Start Date: 05/10/22 Status: Ordered MiraLax Powder 1 pack/packet = 17 Gm, By Mouth, Daily, PRN Constipation, 0 Refills, Maintenance, 05/10/22 8:16:00 EST, Powder, Partial fill upon patient request if the prescription is for a schedule II opioid drug. Start Date: 05/10/22 Status: Ordered montelukast 10 mg oral tablet 10 mg, 1, tablet, By Mouth, Daily, Refills 0, Maintenance, 10/30/20 16:04:00 EDT, Partial fill uponpatient request if the prescription is for a schedule II opioid drug. Start Date: 10/30/20 Status: Ordered Mucinex Allergy 180 mg oral tablet 1 tablet = 180 mg, By Mouth, 2 times a day, # 30 tablet, 0 Refills, Maintenance, 10/30/20 16:07:00 EDT, Tablet, Partial fill upon patient request if the prescription is for a schedule II opioid drug. Start Date: 10/30/20 Status: Ordered oxyCODONE 5 mg oral tablet See Instructions, PRN, 1-2 tablet By Mouth Every 4 hours, # 84 tablet, Refills 0, Tot. Refills 0, Acute 05/17/22 8:15:00 EST, Pain , Severe, 05/10/22 8:15:00 EST, Instructions Replace Required Details, Print Requisition, Partial fill upon patient requ... Start Date: 05/10/22 Stop Date: 05/17/22 Status: Ordered OxyCODONE IR Tablet 5 mg, Tablet, By Mouth, Every 4 hours, PRN for Pain , Moderate, Routine, 05/09/22 13:49:00 EST Start Date: 05/09/22 Stop Date: 05/12/22 Status: Discontinued pantoprazole 20 mg oral delayed release tablet 1 tablet = 20 mg, By Mouth, Daily, # 30 tablet, 0 Refills, Maintenance, 08/26/21 12:54:00 EDT, CR Tablet Start Date: 08/26/21 Status: Ordered ProAir HFA 2 puffs, Inhalation, 4 times a day, PRN Wheezing/Shortness of Breath, 0 Refills, Maintenance, 09/30/12 18:06:47 EDT Start Date: 09/30/12 Status: Ordered senna 187 mg oral tablet 1 tablet = 8.6 mg, By Mouth, Daily at bedtime, PRN as needed for constipation, 0 Refills, Maintenance, 05/10/22 8:16:00 EST, Tablet, Partial fill upon patient request if the prescription is for a schedule II opioid drug. Start Date: 05/10/22 Status: Ordered tamsulosin 0.4 mg oral capsule 0.4 mg, 1, capsule, By Mouth, Daily, # 30 capsule, Refills 0, Maintenance, 10/30/20 16:07:00 EDT, Partial fill upon patient request if the prescription is for a schedule II opioid drug. Start Date: 10/30/20 Status: Ordered traMADol 50 mg oral tablet See Instructions, PRN Pain , Mild, 1-2 tablet By Mouth Every 6 hours not to exceed 400 mg/day, # 56tablet, 0 Refills, Acute 05/17/22 8:14:00 EST, 05/10/22 8:14:00 EST, Tablet, Partial fill upon patient request if the prescription is for a schedule... Start Date: 05/10/22 Stop Date: 05/17/22 Status: Ordered Trelegy Ellipta 200 mcg-62.5 mcg-25 mcg/inh inhalation powder 1 puffs, Inhalation, Daily, at the same time every day, 0 Refills, Maintenance, 10/30/20 16:05:00 EDT, Powder, Partial fill upon patient request if the prescription is for a schedule II opioid drug. Start Date: 10/30/20 Status: Ordered Problem List Condition Confirmation Course Effective Dates Status Health St [facility] Informant Asthma Confirmed Active Carpal tunnel syndrome Confirmed Active Chronic headache Confirmed Active Obese class II Confirmed Active Snoring Confirmed Active Results Radiology Reports * Exam Date Time Procedure Performing Provider Status 05/09/22 10:38 PM Pelvis 1 or 2 Views Thom Smith; Angel (Verified) Notes: (Pelvis 1 or 2 Views) Reason For Exam: Postop Prosthesis;Postop Prosthesis RESULT: Pelvis 1 or 2 Views Pelvis 1 or 2 Views Reason: Postop Prosthesis; Clinical Question(s): Status of Hip Prosthesis; Special Instructions: RIGHT Hip - Do today at 2200 COMPARISON: None. FINDINGS: Right total hip arthroplasty with intact hardware and normal alignment. Subcutaneous gas consistentwith recent surgery. Unremarkable left hip arthroplasty. IMPRESSION: No apparent complication. WSN: [id number] Ordering Physician: Beau Pabon Dictated By: Shaheen Haro MD Dictated Date/Time: 05/09/22 10:43 p Reviewed By: Shaheen Haro MD Signed By: Shaheen Haro MD Signed Date/Time: 05/09/22 10:43 pm Transcribed By: EVA Transcribed Date/Time: 05/09/22 10:42 pm * Exam Date Time Procedure Performing Provider Status 05/09/22 1:16 PM Pelvis 1 or 2 Views Gabo Medrano [facility] (Verified) Notes: (Pelvis 1 or 2 Views) Reason For Exam: RT Hip OA RESULT: Pelvis 1 or 2 Views Pelvis 1 or 2 Views Reason: RT Hip OA COMPARISON: 05/09/2022 at 12:01 PM. FINDINGS: A single frontal view of the lower pelvis obtained postoperatively shows evidence of new total right hip arthroplasty with minimal postoperative changes. Prior left hip arthroplasty unchanged. Partially visualized hardware overlying the sacrum. IMPRESSION: Satisfactory postoperative appearance of a total right hip arthroplasty as described above. WSN: [id number] Ordering Physician: Jey Camacho Dictated By: Eusebio Robertson MD, V Dictated Date/Time: 05/09/22 1:26 pm Reviewed By: Eusebio Robertson MD, V Signed By: Eusebio Robertson MD, V Signed Date/Time: 05/09/22 1:26 pm Transcribed By: EVA Transcribed Date/Time: 05/09/22 1:24 pm * Exam Date Time Procedure Performing Provider Status 05/09/22 12:20 PM Pelvis 1 or 2 Views Neha Lopez; Angel (Verified) Notes: (Pelvis 1 or 2 Views) Reason For Exam: RT Hip OA RESULT: Pelvis 1 or 2 Views Pelvis 1 or 2 Views Reason: RT Hip OA COMPARISON: Right hip radiograph 12/17/2019. FINDINGS: On table intraoperative radiograph demonstrates a right acetabular prosthesis with a right femoral reamer prosthesis. Note is made of a prior left total hip arthroplasty. No acute osseous complication identified. IMPRESSION: Intraoperative radiograph with findings as described. WSN: [id number] Ordering Physician: Jey Camacho Dictated By: Casey Priest MD Dictated Date/Time: 05/09/22 1:11 pm Reviewed By: Casey Priest MD Signed By: Casey Priest MD Signed Date/Time: 05/09/22 1:11 pm Transcribed By: EVA Transcribed Date/Time: 05/09/22 1:07 pm Vital Signs Most recent to oldest [Reference Range]: 1 2 3 4 Height 155 cm (05/12/22 11:00 AM) 155 cm (05/12/22 6:32 AM) 155 cm (05/12/22 4:57 AM) Weight 85 kg (05/09/22 10:00 AM) 85 kg (05/09/22 7:49 AM) Oxygen Saturation [94-100 %] 94 % (05/12/22 11:00 AM) 94 % (05/12/22 6:32 AM) 94 % (05/12/22 4:57 AM) Pulse Rate [55-90 bpm] 81 bpm (05/12/22 11:00 AM) 84 bpm (05/12/22 6:32 AM) 91 bpm *H* (05/12/22 4:57 AM) Body Mass Index [18.5-24.99 kg/m2] 35.38 kg/m2 *>HHI* (05/09/22 10:00 AM) 35.38 kg/m2 *>HHI* (05/09/22 7:49 AM) Blood Pressure [90-138/55-84 mm Hg] 138/73mm Hg (05/12/22 11:00 AM) 128/70mm Hg (05/12/22 6:32 AM) 98/68mm Hg (05/12/22 4:57 AM) Respiratory Rate [16-30 br/min] 18 br/min (05/12/22 11:27 AM) 18 br/min (05/12/22 11:00 AM) 18 br/min (05/12/22 7:36 AM) 18 br/min (05/12/22 7:36 AM) Temperature [96.8-100.4 DegF] 97.6 DegF (05/12/22 11:00 AM) 98.4 DegF (05/12/22 6:32 AM) 99.0 DegF (05/12/22 4:57 AM) Mode of Delivery (Oxygen) Room air (05/12/22 11:00 AM) Room air (05/12/22 6:32 AM) Room air (05/12/22 4:57 AM) Blood pressure sites Arm, left (05/12/22 11:00 AM) Arm, left (05/12/22 6:32 AM) Arm, right (05/12/22 4:57 AM) Temperature Route Oral (05/12/22 11:00 AM) Oral (05/12/22 6:32 AM) Oral (05/12/22 4:57 AM) Dry Weight 85 kg (05/09/22 7:49 AM) Social History Social History Type Response Smoking Status Former smoker, quit more than 30 days ago;Former smokeless tobacco user, quit more than 30 days ago; Type: Cigarettes; Tobacco use times per day: 1-3 PPD; Number of years: 19; Stopped at age: 45; entered on: 10/30/20 Sex Surgical pathology study * Event Display: Surgical Pathology Authored Date: [id number] Patient Name: LORNA WEEMS Lab Patient : 1940 (Age: 82) Collection Date: 05/09/2022 Accession Date: 05/09/2022 Sign Out Date: 05/12/2022 Tissue Source: 1:RIGHT FEMORAL HEAD Final Diagnosis: Femoral head, right, arthroplasty: - Femoral head with degenerative changes of articular cartilaginous surface and eburnation consistent with osteoarthritis (gross examination). Primary Pathologist:Jessica Nesbitt M.D. electronically signed out by: Jessica Nesbitt M.D. / HOANG Clinical History: Osteoarthritis right hip Gross Description: Labeled femoral head . Received in formalin is a 5.2 x 4.8 x 4.3 cm femoral head with up to 0.6 cmof attached femoral neck. The margin of transection is smooth. The articular surface ranges from pink-red, granular to white-pink, bulging. Eburnation and pitting are not grossly present. Osteophytesare identified. Sectioning reveals yellow-red, trabecular cut surfaces. No sections are submitted. Gross exam only. (KM)* Phone #: [phone], On-Call Pathologist: [id number] History and physical note * Event Display: History and Physical Hospital Authored Date: [id number] * Tamra Carter: MODIFY Event Display: History and Physical Hospital Authored Date: [id number] SURGICAL HISTORY AND PHYSICAL DATE: 05/09/2022 PRIMARY DIAGNOSIS: Osteoarthritis of the right hip. REASON FOR ADMISSION: The patient is being admitted for a right total hip arthroplasty with Dr. Camacho on 05/09/2022. HISTORY OF PRESENT ILLNESS: Mr. Weems is an 82-year-old gentleman with history of end-stage osteoarthritis affecting bilateral hips. He had a left hip replacement with Dr. Rouse in 2008. He has done well for quite a long time, but has now had increased pain and impairment. This is affecting his right hip and also radiating down to his right knee. He has been through several modalities of conservative treatments and these are no longer effective for him. His pain is impacting his day-to-day activities and he now would like to proceed with a right hip replacement with Dr. Camacho on 05/09/2022. PAST MEDICAL HISTORY: 1. Osteoarthritis of bilateral hips, status post left hip replaced in [address] Rouse. 2. 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 He continues to have left upper and lower extremity weakness chronically. 3. Coronary artery disease, status post non-STEMI in 2020. Heart catheterization showing an occluded RCA with collateral circulation. He has been on medical management since that time and no stents were put in place. He does continue to have some intermittent chest pain that can last several minutes. He is scheduled to see his repairer auto clocks to follow up and for cardiac clearance. 4. Dyspnea on exertion, which is chronic for him. 5. COPD/asthma. He has an inhaler that he does use routinely. 6. Impaired fasting glucose. He has an A1c of 6.2. 7. Benign prostatic hypertrophy with increased urinary frequency, which he is concerned about aftersurgery. 8. Seizure disorder, which was as a child. I believe he has not had a seizure for about 75 years now. He is not on medication for this. 9. Chronic headaches. 10. Carpal tunnel syndrome. 11. Obesity, BMI of 36. 12. Chronic lumbar spinal stenosis/back pain and cervical spinal stenosis. He had cervical spine fusion with Dr. Prather as well as sounds like lumbar spine fusion with hardware in place, I think in both areas. PAST SURGICAL HISTORY: 1. Left total hip replacement on 06/29/[address] Rouse. 2. Lumbar spine surgery, he does state there is hardware back there. 3. Cervical spinal fusion. 4. Heart catheterization, but no cardiac stents put in place. CURRENT MEDICATIONS: The patient did not bring a current medication list, but this is what I have reviewed with him. 1. Oxycodone 5/325 mg, he takes on average about 2 tablets a day for his pain. 2. Amlodipine 10 mg in the morning. 3. Atenolol 25 mg in the morning. 4. Furosemide 20 mg daily in the morning 5. Gabapentin 100 mg t.i.d. 6. Isosorbide mononitrate extended release he gets 60 mg daily. He takes this in the morning. 7. Montelukast 10 mg in daily. 8. Pantoprazole 20 mg daily in the morning. 9. Tamsulosin 0.4 mg but he states he discontinued this. 10. Trelegy Ellipta inhaler 200/62.5/25 mcg. He utilize this in the morning. He will bring his inhaler with him to the hospital. 11. It sounds like ProAir inhaler that he uses as needed. He will bring both inhalers with him to the hospital. ALLERGIES: 1. IBUPROFEN caused difficulty breathing. 2. LATEX does cause a skin irritation. SOCIAL HISTORY: The patient is . He quit smoking 25 years ago. Denies any significant alcohol or illicit drug use. PHYSICIANS: The patient's primary care provider is Dr. Marvin Carey and he is covered by the medical consult service. Atmospheric Drier Tender, is Dr. Hamilton. [employer] Electronic is Dr. Wilson. REVIEW OF SYSTEMS: The patient's 12-point review of systems is negative with the exception for those discussed in HPI and past medical history. PHYSICAL EXAMINATION: VITAL SIGNS: Temperature 97.8, blood pressure 110/72, pulse is 80, patient stands 5 feet 1 inch tall, weighs 189 pounds. GENERAL: The patient is alert and oriented, normal insight, affect and grooming, in no acute distress. HEENT: Conjunctivae are clear. Sclerae are anicteric. CARDIOVASCULAR: Heart has regular heart regular rate and rhythm. Normal S1, S2. No rubs, gallops, murmurs appreciated on auscultation. RESPIRATORY: Lungs are clear to auscultation bilaterally. ORTHOPEDIC: The patient's skin about the left hip shows a well-healed incision. His right hip showsskin clean and intact. Significant antalgic gait secondary to right hip pain. His knee exam is benign. His calves are soft and nontender with trace edema bilaterally. Good plantar dorsiflexion bilaterally. PREOPERATIVE WORKUP: Orthopedic x-rays demonstrates end-stage osteoarthritis affecting the right hip. EKG shows normal sinus rhythm, cannot rule out inferior infarct at 73 beats per minute. LABORATORY DATA: Shows normal CBC. BUN and creatinine also normal range with a normal GFR of 67. Coags are normal. A1c 6.2. The patient was seen and evaluated by the med consult service. They did put him at elevated cardiacrisk and recommended that the patient see repairer auto clocks for preoperative risk assessment from their perspective. Recommending also that the patient has elevated obstructive sleep apnea risk and to follow up obstructive sleep apnea protocol in hospital. The patient is pending cardiac risk assessment. The patient did see the account support specialist in 04/15 and awaiting their notes. ASSESSMENT AND PLAN: Mr. Weems has end-stage osteoarthritis of the right hip, scheduled for right total hip arthroplasty with Dr. Camacho on 05/09/2022. He will receive IV TXA. He will use aspirin for DVT prophylaxis as he states he can tolerate this without any problems. We will avoid; however, Celebrex because of his cardiac history as well as intolerance to NSAIDs in the past. He will need point of care monitoring in the hospital and O2 and CO2 monitoring as well on telemetry monitoring.The patient anticipates for discharge plans to go home; however, he does have consents whether or not he will pass therapy as he does have some left -sided weakness, which will be difficult for him in transferring and his mobility after surgery, so he does have consents that he may need a rehab stay. Discussed that this will be determined during his hospital stay. The patient has been carefully counseled regarding risks and benefits of proceeding with surgery. The patient understands these risks and wishes to proceed with surgery and signed the consents. POSTOP CONTACT: His , Lew at home phone number [phone]. Postop transportation will be done by his niece Polly and she is also a contact at [phone]. Postop scripts placed into the pharmacy for the patient today are the aspirin and Colace and the acetaminophen. He already has pantoprazole and we are not using Celebrex. Dictated by: Tamra Chairez, PAC Signing Clinician: Jey Camacho M.D. Dictated: 04/28/2022 01:29:34 Transcribed: 08:26:53 AM Transcribed by: JOSHUA DocID: [id number] PRELIMINARY REPORT UNLESS MANUALLY/ELECTRONICALLY SIGNED * Tamra Carter: PERFORM Event Display: History and Physical Hospital Authored Date: [id number] Patient saw his account support specialist, Dr. Hamilton at [facility] on 04/15/22. Patient has a history of COPD, at times requiring nebulizer, prednisone and azithromycin for exacerbations, but has not required this since September of this year. The patient is doing well from a perioperative standpoint patient to proceedwith surgery. Patient to continue Trelegy and Proair inhaler prn. CXR was ordered at that visit. * Tamra Carter: PERFORM Event Display: History and Physical Hospital Authored Date: CXR on 04/15/22: Lungs well expanded and clear of acute process. Heart and pulmonary vascularity isnormal . No gross bony abnormality. * Tamra Carter: PERFORM Event Display: History and Physical Hospital Authored Date: [id number] Cardiology Addendum 05/07/22: Patient did not develop any chest pain with exertion on treadmill. Limited functional capacity due to hip arthritis. Can proceed with surgery with intermediate risk for periop complications. Beta blockers and aspirin should not be held in the periop period. Note * Event Display: Cardiac Rhythm Strips Authored Date: * Event Display: Cardiac Rhythm Strips Authored Date: * Alexa Maldonado RN, I: PERFORM Event Display: Discharge/Transfer Note Hospital Authored Date: Nursing Discharge Note Entered On: 05/12/2022 12:39 EST Performed On: 05/12/2022 12:39 EST by Alexa Maldonado RN, I Nursing Discharge Note 2 Discharge Time : 05/12/2022 12:40 EST Discharge Level of Care at Discharge : long term facility Discharge Nursing Homes/Rehab Facilities : [facility] Patient Left Unit Via : Chair Van Patient Accompanied Off Unit with : Ambulance/Chair Van Personnel Handover Given to Transport Personnel : Yes DC Instructions Provided & Signed by Pt : Yes Patient Understands D/C Instructions : Yes Patient Instructions Discharge Signed : No Did Pt have Specialty Bed or Wound Vac : No Alexa Maldonado RN, I - 05/12/2022 12:39 EST * Grazyna Cota RN: VERIFY, PERFORM, SIGN Event Display: Case Management Discharge Plan Authored Date: Patient: LORNA WEEMS Age: 82 years Sex: Male : 1940 Associated Diagnoses: None Author: Grazyna Cota RN Discharge Plan Case Management Discharge Plan : Case Management Discharge Plan Data 05/12/2022 11:57 EST Discharge Level of Care at Discharge long term facility Discharge Nursing Homes/Rehab Facilities [facility] Discharge Transportation Arranged [facility] [address] [facility] [address] [phone] Discharge Arranged Transport Date/Time 05/12/2022 12:30 Mode of Transportation Arranged Ambulance Agency [facility] Drawer #1 Intake Service Categories #1 Physical Therapy, Alf Service Comments #1 You are being discharged to [facility] for [facility]. Name of Person Notified of Transfer Pt. and Lew Weems, * Joel HERNANDEZ, Alexa I: PERFORM Event Display: Patient Education/Instruction Authored Date: [id number] Inpatient Adult Discharge Instructions [address] [address] Name: LORNA WEEMS : 1940 Visit: 05/09/2022 06:39:00 Current Date: 05/12/2022 11:37 Account: [id number] Inpatient Adult Discharge Instructions We would like to thank you for allowing us to assist you with your healthcare needs. The following includes patient education materials and information regarding your injury/illness. Our entire staffstrives to provide an excellent experience for our patients and their families. PLEASE ENSURE YOU FOLLOW-UP PER THE INSTRUCTIONS BELOW! ?? YOUR OPINION IS IMPORTANT TO US! Please complete the survey you may receive by mail or email. Your feedback will be used to make improvements to the healthcare experiences of our patients and their families. Surveys are administered by [employer] ?? If further treatment with your primary care physician or another doctor is recommended, it is important for you to keep the appointment. Call your primary care physician or return to the Emergency Department immediately if your condition worsens, fails to improve, or new symptoms develop. If you need to find a doctor, you can call [facility] [employer] [facility] for a referral at [phone] or toll free at [phone] or log in to [email or web address].. ?? You can view and manage your care through the patient portal or by using a health care aminah of your choosing. [employer] is a website that allows you to securely view your medical information including your hospital discharge summary, office visit summaries, medications and follow-up visits. You can also request appointments, renew medications, and request access to your medical information using a health care aminah of your choosing, or just ask a question. You can enroll at [email or web address] or register during your next office visit. You have been discharged from [facility], Patient Care Unit: SW7. If you have any questions regarding these instructions after you leave, please call us and we will be happy to assist you. [facility] Your Care Team Attending Physician Janice VILLALPANDO, Jey Pizano Consulting Providers Janice VILLALPANDO, Jey Pizano Discharging Providers Aleah MEMBRENO, Simona Reason for Admission OA RIGHT HIP TOTAL ARTHROPLASTY OVN Tests Performed Below is a partial list of the tests performed during your hospitalization. You may have had other tests and procedures not included in this list. Please discuss all test results with your provider. BUN CBC COVID-19 (2019 Novel Coronavirus) PCR Creatinine Electrolytes GLUCOSE POC XR Pelvis 1 or 2 Views Primary Care Provider Marvin Carey MD Advance Directive Health Care Proxy on File Yes - Health Care Proxy No qualifying data available. Discharge Vitals Temperature: 97.6 DegF Height: 155 cm Pulse Rate: 81 bpm Weight: 85 kg Respiratory Rate: 18 br/min Body Mass Index:??35.38 kg/m2??Critical Systolic Blood Pressure: 138 mm Hg Body surface area: 1.91 Diastolic Blood Pressure: 73 mm Hg ?? Oxygen Saturation: 94 % ?? Studies Pending All tests and labs ordered during this hospital stay have been completed unless listed below. Please discuss all pending results with your provider listed above in these instructions. ?? BUN CBC Creatinine Electrolytes Pathology Tissue Request ([id number]) What to do next Instructions From Your Doctor Discharge Orders You Need to Schedule the Following Appointments Follow Up with??[facility] When??Within 1 to 2 weeks Where: [address] [place] [address]- Discharge Medications LORNA WEEMS :1940 Visit Date:05/09/2022 Medications: Please continue your medications until treatment is completed or stopped by your provider. Medications not listed below should be discontinued. Discuss any questions related to medications with your provider. What How Much When Instructions Next Dose New Acetaminophen (acetaminophen 325 mg oral tablet) 650 Milligram Oral Every 6 hours New Aspirin (Aspirin Tablet) 325 Milligram Oral Twice a day New Docusate (Colace Capsule) 100 Milligram Oral Twice a day New Oxycodone (oxyCODONE 5 mg oral tablet) See instructions 1-2 tablet By Mouth Every 4 hours ?? Printed Prescription New Polyethylene Glycol 3350 (MiraLax Powder) 17 gram Oral Daily as needed for Constipation New Senna (senna 187 mg oral tablet) 1 tab(s) Oral Daily at Bedtime as needed for as needed for constipation New Tramadol (traMADol 50 mg oral tablet) See instructions 1-2 tablet By Mouth Every 6 hours not to exceed 400 mg/ day ?? Printed Prescription Changed Isosorbide Mononitrate (isosorbide mononitrate 30 mg oral tablet, extended release) 2 tab(s) Oral Daily Unchanged Albuterol (ProAir HFA) 2 puff(s) Inhalation 4 times a day as needed for Wheezing/Shortness of Breath Unchanged Amlodipine (amLODIPine 10 mg oral tablet) 1 tab(s) Oral Daily Unchanged Atenolol (atenolol 50 mg oral tablet) 0.5 tab(s) Oral Daily Unchanged Fexofenadine (Mucinex Allergy 180 mg oral tablet) 1 tab(s) Oral Twice a day Unchanged fluticasone/ umeclidinium/ vilanterol (Trelegy Ellipta 200 mcg-62.5 mcg-25 mcg/ inh inhalation powder) 1 puff(s) Inhalation Daily at the same time every day ?? Unchanged Furosemide 20 Milligram Daily Unchanged Gabapentin 100 Milligram Oral 3 times a day Unchanged Montelukast (montelukast 10 mg oral tablet) 1 tab(s) Oral Daily Unchanged Pantoprazole (pantoprazole 20 mg oral delayed release tablet) 1 tab(s) Oral Daily Unchanged Tamsulosin (tamsulosin 0.4 mg oral capsule) 1 capsule Oral Daily ?? What How Much When Comments Stop Taking Albuterol/ Ipratropium (Duoneb Inhalation Solution) 1 vials BAND Nebulizer Every 6 hours Stop Taking Azithromycin See Instructions 250 mg every thu ?? Stop Taking Budesonide (budesonide 0.25 mg/ 2 mL inhalation suspension) 2 Milliliter Nebulized inhalation Twice a day Stop Taking Losartan (losartan 100 mg oral tablet) 1 tab(s) Oral Daily Stop Taking Oxycodone / Acetaminophen (acetaminophen-oxycodone 300 mg-2.5 mg oral tablet) 1 tab(s) Oral Every 6 hours as needed for for pain Test Results Below is a partial list of the most recent Laboratory test results done prior to this discharge. You may have had other tests and procedures not included in this list. Please discuss all test resultswith your provider. BUN (05/12/2022) ???BUN - 16 mg/dL CBC (05/12/2022) ???WBC - 15.0 k/mm3???RBC - 4.13 m/mm3???Hgb - 11.8 Gm/dL???Hct - 37.3 %???MCV - 90.3 femtoliters???MCH - 28.6 pg???MCHC - 31.6 g/dL???Platelet Count - 224 k/mm3???RDW-SD - 44.4 femtoliters???MPV - 10.5 femtoliters???Nucleated RBC (Automated) - 0.0 #/100 WBC'S???Abs. NRBC - 0.0 k/mm3 COVID-19 (2019 Novel Coronavirus) PCR (05/12/2022) ???COVID-19 PCR Specimen Source - NASAL???COVID-19 PCR Result - NEGATIVE Creatinine (05/12/2022) ???Creatinine-Blood - 1.2 mg/dL???Estimated GFR Creatinine - 59 ML/MIN/1.73 M2 Electrolytes (05/12/2022) ???Sodium - 139 mmol/L???Potassium - 4.0 mmol/L???Chloride - 101 mmol/L???Bicarbonate Level - 28 mmol/L???Anion Gap - 10 GLUCOSE POC (05/12/2022) ???Glucose, POC - 125 mg/dL Allergies (NKA means No Known Allergies) ibuprofen??(diff. breathing) Latex??(Skin irritation) Problems Active Problems??(11) Asthma?? Asthma?? Carpal tunnel syndrome?? Childhood Seizures, treated with Dilantin- no current Rx or problems?? Chronic headache?? HTN?? Obese class II?? JAQUELINE?? S/P L THR 2009?? Snoring?? Spinal Stenosis?? Education Materials Below is the list of Educational Leaflet Providered with your Discharge Instructions. Total Hip Replacement Discharge Instructions?? Valuables and Belongings I fully understand and agree that [facility] accepts no responsibility for all my personal property including clothing, toilet articles, radios, jewelry, dentures, hearing aids, rings, money, or any other property that is in my possession or is brought to me after admission. I understand certain valuables may be placed in a hospital safe for a short period of time. I understand that the hospital is not liable for loss or damage due to accident, fire, or other natural occurrence while said property is in the safe. I accept full responsibility for any personal property that I keep with me, and will not hold the hospital responsible in case of loss or disappearance. I acknowledge that i have been encouraged to send valuables and belongings home. ?? Possessions released to: no belongings in pre op Date for Pt to Sign Valuables/Belongings: 05/09/22 10:00:00 ?? Other Discharge Information ? Case Management Discharge Plan?? Discharge Plan?? Discharge Agency Information?? Discharge Level of Care at Discharge: long term facility Agency [facility] #1: Intake Discharge Transportation Arranged: [facility] [address] [facility] ??[phone] Service Categories #1: Occupational Therapy, Physical Therapy Mode of Transportation Arranged: Chair Van Service Comments #1: You are being discharged to rehab at [facility]. Discharge Nursing Homes/Rehab Facilities: [facility] ? Pulmonary Rehab Status?? Pulmonary Rehab Discharge Status?? Respiratory Rate: 18 br/min ? Common Emergency Awareness Tips IS IT A STROKE? Act FAST and Check for these signs: FACE Does the face look uneven? ARM Does one arm drift down? SPEECH Does their speech sound strange? TIME Call at any sign of stroke ?? Heart Attack Signs Chest discomfort: Most heart attacks involve discomfort in the center of the chest and lasts more than a few minutes, or goes away and comes back. It can feel like uncomfortable pressure, squeezing, fullness or pain. Discomfort in upper body: Symptoms can include pain or discomfort in one or both arms, back, neck, jaw or stomach. Shortness of breath: With or without discomfort. Other signs: Breaking out in a cold sweat, nausea, or lightheaded. Remember, MINUTES DO MATTER. If you experience any of these heart attack warning signs, call to get immediate medical attention! ?? Smoking can increase your chances of developing chronic health problems and can cause harmful effects to other family members in your house. If you smoke, you are strongly encouraged to quit. Please call [facility] [employer] [facility] at [phone] or 5-072-917RunSignUp.com (8961) or log in to [email or web address] for referrals to smoking cessation programs. ?? The National Suicide Prevention Hotline is available 15/12 if you or someone you know needs to find a reason to keep living. By calling 9-421-433-[employer] (8844) you'll be connected to a skilled, trained counselor at a crisis center in your area. INPATIENT DISCHARGE INSTRUCTIONS SIGNATURE PAGE FAUSTINA LORNA Location:[facility] Registration Date and Time:05/09/2022 06:39 EST Primary Care Physician: Aurelio VILLALPANDO, Marvin Wei, I LORNA WEEMS, have received the above patient education materials/instructions and have verbalized understanding. If ambulance or transport services are being used I further acknowledge being given a choice of service. ?? If you need to contact me, please call me at this number: . Patient/Lighting Director Name: Patient/Lighting Director Signature: Relationship to Patient: Witness Name/Signature: Date: * Alexa Maldonado RN, I: PERFORM Event Display: Patient Education Leaflets Authored Date: Total Hip Replacement Discharge Instructions ?? 666 Total Hip Replacement Discharge Instructions ? Please read and review your Total Hip Replacement Book for detailed information ??? Your appetite may be decreased but try to maintain a good balanced diet Incision ?Your incision is closed with absorbable stitches and surgical glue. ?The dressing is waterproof. You may shower the next day. ??? Your dressing will stay on for 1-2 weeks ?You cannot go in a bath, pool, ocean, pond, khoury or jacuzzi for 6 weeks. This is to reduce your risk of infection ? You may have some numbness around the incision. This is normal and will improve with time. Some patients have numbness that does not completely go away. ??? You may have skin discoloration (yellowish or bruising) around your incision which may develop. ??? Ice and elevation ? Ice is important to help keep swelling down. ?Keep your leg elevated as much as possible. ?Ice your hip 4 times a day for 20 minutes each time. Be sure not to put the ice/ice pack directly on your skin. Use a dishtowel or something similar between your skin and the ice. ??? Drs. Martell, Nasim, and Monique???Ag patients: The blue wedge is to be used between your knees when sleeping and sitting in a chair for the first few weeks. This keeps your hip in the proper position ? Moving ? Moving is especially important. This helps to prevent blood clots. Take short frequent walks. ? Exercises as per physical therapy ??? No driving until approved by your surgeon ??? Continue to move your foot up and down, these exercises help to prevent blood clots and help to decrease swelling in your hip. ?? When to call the Surgeon?CALL [phone] ? If you have shortness of breath or chestpain, call 911 or go to the nearest emergency department. ??? If you have drainage and/or redness around your wound. ??? If you have a fever greater than 101.5 (38.5 degrees Celsius). ??? If you havepersistent calf pain or swelling (This could be a blood clot). ??? If your pain is worsening. ? If you have any difficulty with urination or burning with urination. ?? * Event Display: Adult Preadmission Health Questionnaire Authored Date: * Event Display: Cardiac Rhythm Strips Authored Date: * Simona Bullard NP: VERIFY, MODIFY, SIGN, PERFORM, SIGN Event Display: Discharge/Transfer Note Hospital Authored Date: Patient: LORNA WEEMS Age: 82 years Sex: Male : 1940 Associated Diagnoses: None Author: Simona Bullard NP Discharge Summary Admission Date: 05/09/2020 Discharge Date: 05/12/2022 Admitting Diagnosis: Right hip osteoarthritis Discharge Diagnosis: Right hip osteoarthritis Final Diagnosis: Right hip osteoarthritis Procedure: Right total hip arthroplasty Surgeon: Dr. Jey Camacho Past Medical History: 1. Osteoarthritis of bilateral hips, status post left hip replaced in [address] Rouse. 2. 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 He continues to have left upper and lower extremity weakness chronically. 3. Coronary artery disease, status post non-STEMI in 2020. Heart catheterization showing an occluded RCA with collateral circulation. He has been on medical management since that time and no stents were put in place. He does continue to have some intermittent chest pain that can last several minutes. 4. Dyspnea on exertion, which is chronic for him. 5. COPD/asthma. He has an inhaler that he does use routinely. 6. Impaired fasting glucose. He has an A1c of 6.2. 7. Benign prostatic hypertrophy with increased urinary frequency. 8. Seizure disorder, which was as a child. He is not on medication for this. 9. Chronic headaches. 10. Carpal tunnel syndrome. 11. Obesity, BMI of 36. 12. Chronic lumbar spinal stenosis/back pain and cervical spinal stenosis. He had cervical spine fusion with Dr. Prather as well as sounds like lumbar spine fusion with hardware in place. Orthopedics: The patient is status post right hip arthroplasty. It is anticipated that he will be discharged to rehab today pending PT, OT clearance. The patient is doing well from a surgical standpoint. His incision is healing well. Neurovascular status is intact. Calves are supple and nontender. The patient is weight bearing as tolerated. Making fair progress with Physical Therapy and Occupational therapy. Moderate to max assist x2 with transfers and ambulation. Pain is well controlled on hiscurrent regimen, Acetaminophen 650 mg every 6 hours, tramadol and oxycodone 5-10 mg every 4 hours as needed . Patient is tolerating this well. He will be sent to rehab with a prescription for this medication. Prescription: Tramadol 50 mg tablets, take 1 to 2 tablets every 6 hours as needed for mild pain, 7 days, #56 Oxycodone 5 mg tablet, 1-2 tablets every 4 hours as needed for severe pain, 7 days # 84 Hospital course: Relatively uneventful medically. There were no signs or symptoms of seizure activity. Telemetry remained stable throughout his hospital stay. Patient is voiding spontaneously. + bowel sounds. all morning bowel medications will be given in anticipation of a BM prior to discharge. No other issues. Nocalf tenderness. Current Medication List: Acetaminophen: 650 mg, By Mouth, Every 6 hours Albuterol: 2 puffs, Inhalation, 4 times a day, PRN (Wheezing/Shortness of Breath) Amlodipine: 10 mg = 1 tablet, By Mouth, Daily Aspirin: 325 mg, By Mouth, 2 times a day Atenolol: 25 mg = 0.5 tablet, By Mouth, Daily Docusate: 100 mg = 1 capsule, By Mouth, 2 times a day Fexofenadine: 180 mg = 1 tablet, By Mouth, 2 times a day fluticasone/umeclidinium/vilanterol: 1 puffs, Inhalation, Daily, at the same time every day Furosemide: 20 mg, Daily Gabapentin: 100 mg, By Mouth, 3 times a day Isosorbide Mononitrate: 60 mg = 2 tablet, By Mouth, Daily Montelukast: 10 mg = 1 tablet, By Mouth, Daily Oxycodone: See Instructions, PRN (Pain , Severe), 1-2 tablet By Mouth Every 4 hours Pantoprazole: 20 mg = 1 tablet, By Mouth, Daily Polyethylene Glycol 3350: 17 Gm = 1 pack/packet, By Mouth, Daily, PRN (Constipation) Senna: 8.6 mg = 1 tablet, By Mouth, Daily at bedtime, PRN (as needed for constipation) Tamsulosin: 0.4 mg = 1 capsule, By Mouth, Daily Tramadol: See Instructions, PRN (Pain , Mild), 1-2 tablet By Mouth Every 6 hours not to exceed 400 mg/day Allergies (Active and Proposed Allergies Only) Latex (Severity: Unknown severity, Onset: Unknown) Reactions: Skin irritation ibuprofen (Severity: Persistent Severe, Onset: Unknown) Reactions: diff. breathing Current Labs: Last 24 Hours Basic Metabolic Panel: Hematology: Sodium: 139 mmol/L (05/12/22) Hgb: 11.8 Gm/dL (05/12/22) Potassium (POC): 4.0 mmol/L (05/12/22) Hemoglobin A1C (Monitoring): ------ Phosphorus: ------ WBC: 15.0 k/mm3 (05/12/22) Magnesium: ------ Platelets: 224 k/mm3 (05/12/22) BUN (POC) POC Cartridge: 16 mg/dL (05/12/22) INR Level: ------ Creatinine-Blood: 1.2 mg/dL (05/12/22) Creatinine Clearance: ------ Additional - Last 24 Hours Abs. NRBC: 0.0 k/mm3 (05/12/22) Anion Gap: 10 (05/12/22) Bicarbonate Level: 28 mmol/L (05/12/22) BUN: BUN (05/12/22) Chloride: 101 mmol/L (05/12/22) COVID-19 PCR Result: NEGATIVE (05/12/22) COVID-19 PCR Specimen Source: NASAL (05/12/22) Creatinine, Blood: Creatinine, Blood (05/12/22) Estimated GFR Creatinine: 59 ML/MIN/1.73 M2 (05/12/22) Glucose, POC: 125 mg/dL (05/12/22) Hct: 37.3 % (05/12/22) MCH: 28.6 pg (05/12/22) MCHC: 31.6 g/dL (05/12/22) MCV: 90.3 femtoliters (05/12/22) MPV: 10.5 femtoliters (05/12/22) Nucleated RBC (Automated): 0.0 #/100 WBC'S (05/12/22) RBC: 4.13 m/mm3 (05/12/22) RDW-SD: 44.4 femtoliters (05/12/22) DVT prophylaxis ASA EC 325 mg po bid x 30 days Disposition: Anticipates being discharged today to rehab. [facility] up at [facility] on 05/23/2022 at 10:30 AM, patient is aware of this. The patient has an Aquacel dressing in place. He may shower with it and the dressing can be discontinued on POD 14. Stay at the rehab is expected to be less than 30 days. Hospital Progress note * Joel HERNANDEZ, Alexa Barker: PERFORM, SIGN, VERIFY, SIGN, MODIFY Event Display: Progress Note Hospital Authored Date: Patient: LORNA WEEMS Age: 82 years Sex: Male : 1940 Associated Diagnoses: None Author: Joel HERNANDEZ, Alexa Barker Findings Problem Related to Alteration in Musculoskeletal : Alteration in Musculoskeletal Func/new 05/12/2022 10:00 EST Alteration in Musculoskeletal Related to Mobility, Orthopedic Procedure, Totaljoint replacement, Other: RIGHT TOTAL HIP REPLACEMENT, DR CAMACHO 05/09 POD 1 Goals & Outcomes, Musculoskeletal Affected extremity will maintain color/motion/sensation, Pt able to perform ADL's to best of ability, Pt demonstrates precautions/exercise/ transfers per protocol, Pt will ambulate safely with assistive device, Pt will be free from complications of immobility, Pt will demonstrate ability to participate in ADL's, Pt will report acceptable level of comfort/painrelief Interventions, Musculoskeletal Monitor patients ambulation status, monitor Color/Motion/Sensation, Assist with repositioning, Encourage deep breathing & coughing exercises, Notify MD immediately if tissue perfusion deteriorates, Obtain assistive devices as needed, Teach & Encourage use of Incentive spirometer, Teach Pt/caregiver on ADL's & adaptive equipment, Teach Pt/caregiver on exercises, Teach pt/caregiver on use of pain scale, Teach Pt/caregiver complications of immobility, Teach Pt/caregiver techniques to increase mobility, Teach Pt/caregiver on safety precautions BH Goals/Interventions, Musculoskeletal Yes Musculoskeletal, Problem Start 05/09/2022 15:28 Reviewed Plan with, Musculoskeletal Patient Patient Progression, Musculoskeletal Pt progressing according to plan . Narrative/Incidental Pt alert and oriented x3. Lungs with exp/insp wheeze noted, SOB on exertion, sats 92-94% RA, use ofincentive spirometer encouraged, pt achieving 1000ml at this time, needs encouragement. Pt with [place] cath in place, adequate u/o. display mechanic as per orders, at time of note pt in NSR with HR 82.Abdomen soft, non-tender with +bs, tolerating po well, LBM 05/08, miralax given this am, pt refusing suppository at this time. Plan rehab upon discharge. Will continue to monitor pain level and musculoskeletal status. Refer to biophysical assessment for further details. . Evaluation Pt rating pain 3/10 this am, oxycodone 5mg po prnw ith + effect on pain, tylenol as per schedule. Right hip with aquacel dressing CD+I, +pp, +cms and good dorsi/plantar flexion noted, brisk cap refill. Compression boots and ASA for DVT proph. OOB with mod/max assist. . * Joel HERNANDEZ, Alexa Barker: PERFORM Event Display: Progress Note Hospital Authored Date: Suppository administered, awaiting results * Simona Bullard NP: PERFORM, SIGN, VERIFY Event Display: Progress Note Hospital Authored Date: [id number] Patient: LORNA WEEMS Age: 82 years Sex: Male : 1940 Associated Diagnoses: None Author: Simona Bullard NP Ortho POD 3 s/p right IBRAHIMA S: no c/o CP, SOB, N/V, +flatus voiding well via [place] catheter. Pain is well controlled on currentregimen 3 out of 10. Telemetry remained stable in sinus rhythm. Moderate to max assist x2. Plan is to discharge to rehab today pending bed availability. All bowel medications will be given to him prior to the discharge. O: Vitals Temperature 98.4 (06:32) Systolic Blood Pressure 128 (06:32) Diastolic Blood Pressure 70 (06:32) Pulse 84 (06:32) SpO2 94 (06:32) Respiratory Rate 18 (07:21) Last 24 Hours Basic Metabolic Panel: Hematology: Sodium: 139 mmol/L (05/12/22) Hgb: 11.8 Gm/dL (05/12/22) Potassium (POC): 4.0 mmol/L (05/12/22) Hemoglobin A1C (Monitoring): ------ Phosphorus: ------ WBC: 15.0 k/mm3 (05/12/22) Magnesium: ------ Platelets: 224 k/mm3 (05/12/22) BUN (POC) POC Cartridge: 16 mg/dL (05/12/22) INR Level: ------ Creatinine-Blood: 1.2 mg/dL (05/12/22) Creatinine Clearance: ------ Additional - Last 24 Hours Abs. NRBC: 0.0 k/mm3 (05/12/22) Anion Gap: 10 (05/12/22) Bicarbonate Level: 28 mmol/L (05/12/22) BUN: BUN (05/12/22) Chloride: 101 mmol/L (05/12/22) COVID-19 PCR Result: NEGATIVE (05/12/22) COVID-19 PCR Specimen Source: NASAL (05/12/22) Creatinine, Blood: Creatinine, Blood (05/12/22) Estimated GFR Creatinine: 59 ML/MIN/1.73 M2 (05/12/22) Glucose, POC: 125 mg/dL (05/12/22) Hct: 37.3 % (05/12/22) MCH: 28.6 pg (05/12/22) MCHC: 31.6 g/dL (05/12/22) MCV: 90.3 femtoliters (05/12/22) MPV: 10.5 femtoliters (05/12/22) Nucleated RBC (Automated): 0.0 #/100 WBC'S (05/12/22) RBC: 4.13 m/mm3 (05/12/22) RDW-SD: 44.4 femtoliters (05/12/22) General: alert, lucid, in NAD Heart: RRR, normal S1S2 Lungs: CTAb Abdomen: obese, soft NT BS hypo active Neurovascular: calves soft NT, +DF/+PF Dressing: CDI A/P: 82year old male with history of CAD status post NSTEMI, hypertension, COPD, asthma, BPH, seizure disorder and palsy now s/p right IBRAHIMA POD 3 Pain: Continue with Tylenol, tramadol and oxycodone CAD status post NSTEMI: Continue with telemetry and atenolol COPD/asthma: Continue with montelukast Hypertension: Continue with amlodipine, atenolol, Lasix and Imdur BPH: Voiding well Seizure disorder: No signs or symptoms of seizure activity. DVT prophylaxis: Aspirin WBAT/ PT/OT/Hip precautions Discharge to rehab pending bed availability Case discussed with Dr. Camacho * Tobias Pierson: PERFORM, SIGN, VERIFY Event Display: Progress Note Hospital Authored Date: [id number] Patient: LORNA WEEMS Age: 82 years Sex: Male : 1940 Associated Diagnoses: None Author: Tobias Pierson Findings Problem Related to Alteration in Musculoskeletal : Alteration in Musculoskeletal Func/new 05/11/2022 20:00 EST Alteration in Musculoskeletal Related to Mobility, Orthopedic Procedure, Totaljoint replacement, Other: RIGHT TOTAL HIP REPLACEMENT, DR CAMACHO 05/09 POD 1 Goals & Outcomes, Musculoskeletal Affected extremity will maintain color/motion/sensation, Pt able to perform ADL's to best of ability, Pt demonstrates precautions/exercise/ transfers per protocol, Pt will ambulate safely with assistive device, Pt will be free from complications of immobility, Pt will demonstrate ability to participate in ADL's, Pt will report acceptable level of comfort/painrelief Interventions, Musculoskeletal Monitor patients ambulation status, monitor Color/Motion/Sensation, Assist with repositioning, Encourage deep breathing & coughing exercises, Notify MD immediately if tissue perfusion deteriorates, Obtain assistive devices as needed, Teach & Encourage use of Incentive spirometer, Teach Pt/caregiver on ADL's & adaptive equipment, Teach Pt/caregiver on exercises, Teach pt/caregiver on use of pain scale, Teach Pt/caregiver complications of immobility, Incision care as ordered BH Goals/Interventions, Musculoskeletal Yes Musculoskeletal, Problem Start 05/09/2022 15:28 Reviewed Plan with, Musculoskeletal Patient Patient Progression, Musculoskeletal Pt progressing according to plan . Nursing Data Vital Signs : VITAL SIGNS SECTION 05/11/2022 19:34 EST Temperature 100.0 DegF Temperature Route Oral Pulse Rate 89 bpm Respiratory Rate 18 br/min Systolic Blood Pressure 140 mm Hg H Diastolic Blood Pressure 66 mm Hg Blood pressure sites Arm, right Mean Arterial Pressure 91 mm Hg Pulse Pressure 74 mm Hg Oxygen Saturation 94 % Mode of Delivery (Oxygen) Room air . Evaluation Patient is here for a RIGHT TOTAL HIP REPLACEMENT performed by Dr Camacho on 05/09. No major events overnight. Patient is A&Ox4, continues to deny any chest pain or SOB. Faint wheezing auscultated throughout both lungs, no signs of respiratory distress, still on continuous O2 monitor as ordered, saturating in the low 90s on room air. display mechanic in place and exhibiting NSR with rates in the 70s-80s. Patient reporting 4/10 right hip pain overnight, scheduled Gabapentin and PO Tylenol administered with good effect. Aquacel on right hip remains c/d/i. +D/P, and +PP still noted to bothlower extremities. Continues to deny any N/V, lightheadedness, or dizziness. Voiding into condom catheter, last BM 05/08, patient refused bedtime Colace & Senna, patient education about the importance of medication regimen adherence, still refused. Patient educated and encouraged to use IS and perform dorsi/plantar exercises throughout shift. C- boots applied to both lower extremities. BED alarm activated for safety. Fall prevention & safety education was provided to the patient. Patientwas educated on how to use call fernando. Patient was instructed to not get out of bed without calling for assistance first using call fernando, patient verbally agreed. Bed is in a low-locked position. Callbell along with personal belongings are within patient reach. Will continue to monitor and report any changes to MD.... XR Pelvis 1 or 2 Views * BHSPowerscribe , CIS S: TRANSCRICasey Smith MD: VERIFY Event Display: Result: Authored Date: [id number] Pelvis 1 or 2 Views Reason: RT Hip OA COMPARISON: Right hip radiograph 12/17/2019. FINDINGS: On table intraoperative radiograph demonstrates a right acetabular prosthesis with a right femoral reamer prosthesis. Note is made of a prior left total hip arthroplasty. No acute osseous complication identified. IMPRESSION: Intraoperative radiograph with findings as described. WSN: [id number] Ordering Physician: Jey Camacho Dictated By: Casey Priest MD Dictated Date/Time: 05/09/22 1:11 pm Reviewed By: Casey Priest MD Signed By: Casey Priest MD Signed Date/Time: 05/09/22 1:11 pm Transcribed By: EVA Transcribed Date/Time: 05/09/22 1:07 pm * Tonny , CIS S: Eusebio Koroma MD V: VERIFY Event Display: Result: Authored Date: [id number] Pelvis 1 or 2 Views Reason: RT Hip OA COMPARISON: 05/09/2022 at 12:01 PM. FINDINGS: A single frontal view of the lower pelvis obtained postoperatively shows evidence of new total right hip arthroplasty with minimal postoperative changes. Prior left hip arthroplasty unchanged. Partially visualized hardware overlying the sacrum. IMPRESSION: Satisfactory postoperative appearance of a total right hip arthroplasty as described above. WSN: [id number] Ordering Physician: Jey Camacho Dictated By: Eusebio Robertson MD, V Dictated Date/Time: 05/09/22 1:26 pm Reviewed By: Eusebio Robertson MD, V Signed By: Eusebio Robertson MD, V Signed Date/Time: 05/09/22 1:26 pm Transcribed By: EVA Transcribed Date/Time: 05/09/22 1:24 pm * Vaibhavsctheresa , CIS S: TRANSCRIShaheen Dela Cruz MD: VERIFY Event Display: Result: Authored Date: [id number] Pelvis 1 or 2 Views Reason: Postop Prosthesis; Clinical Question(s): Status of Hip Prosthesis; Special Instructions: RIGHT Hip - Do today at 2200 COMPARISON: None. FINDINGS: Right total hip arthroplasty with intact hardware and normal alignment. Subcutaneous gas consistentwith recent surgery. Unremarkable left hip arthroplasty. IMPRESSION: No apparent complication. WSN: [id number] Ordering Physician: Beau Pabon Dictated By: Shaheen Haro MD Dictated Date/Time: 05/09/22 10:43 p Reviewed By: Shaheen Haro MD Signed By: Shaheen Haro MD Signed Date/Time: 05/09/22 10:43 pm Transcribed By: EVA Transcribed Date/Time: 05/09/22 10:42 pm Patient Care team information Care Team Personnel Name: Lawanda Cody RN Position: [facility] RN Member Role: Primary Care Nurse Name: Marvin Carey MD Position: Reference Physician Member Role: PCP Address: Address: [address] [place] [address] Name: Ivy Watts RN Position: [facility] SN Security Guard Supervisor Member Role: Primary Care Nurse Name: Evelia Gorman RN Position: S RN Member Role: Primary Care Nurse Name: Erin Hardy RN Position: [facility] PCO RN Member Role: Primary Care Nurse Name: Jackeline Raines RN Position: [facility] RN Member Role: Primary Care Nurse Care Team Related Persons Name: LEIF GARCIA Name: LEW WEEMS Address: [place] [address]
--- OUTSIDE RECORDS SUMMARY | 2023-12-18 05:43 | XMS_ITS | Continuity of Care Document ---
Author Organization [facility] Chelsea randell Address [address] [place] [address]- Care Team Providers Care Rn Womens Health Name Role Phone Aurelio VILLALPANDO, Marvin Wei Primary Care Physician Encounter [facility] Date(s): 11/13/23 - 12/13/23 [facility] [address] [place] [address] Drive [address] [place] [address]- Attending Physician: Yvonne Parr Admitting Physician: Yvonne Parr Referring Physician: AdmtrYvonne Allergies, Adverse Reactions, Alerts Substance Reaction Severity Status ibuprofen diff. breathing Persistent Severe Active Latex Skin irritation Active Medications acetaminophen 325 mg oral tablet 650 mg, By Mouth, Every 6 hours, Refills 0, Maintenance, 05/10/22 8:15:00 EST, Partial fill upon patient request if the prescription is for a schedule II opioid drug. Start Date: 05/10/22 Status: Ordered amLODIPine 10 mg oral tablet 10 mg, 1, tablet, By Mouth, Daily, Refills 0, Maintenance, 11/01/20 12:15:00 EDT, Partial fill uponpatient request if the prescription is for a schedule II opioid drug. Start Date: 11/01/20 Status: Ordered aspirin 81 mg oral delayed release tablet 81 mg, 1, tablet, By Mouth, Daily, Refills 0, Maintenance, 09/22/23 8:43:00 EDT, Partial fill upon patient request if the prescription is for a schedule II opioid drug. Start Date: 09/22/23 Status: Ordered atenolol 50 mg oral tablet 25 mg, 0.5, tablet, By Mouth, Daily, Maintenance, 10/22/17 11:02:55 EDT Start Date: 10/22/17 Status: Ordered Furosemide = 40 mg, Daily, 0 Refills, Maintenance, 08/26/21 12:53:00 EDT, Partial fill upon patient request ifthe prescription is for a schedule II opioid drug. Start Date: 08/26/21 Status: Ordered Gabapentin = 100 mg, By Mouth, 3 times a day, 0 Refills, Maintenance, 08/26/21 12:53:00 EDT, Partial fill uponpatient request if the prescription is for a schedule II opioid drug. Start Date: 08/26/21 Status: Ordered isosorbide mononitrate 30 mg oral tablet, extended [...] opioid drug. Start Date: 10/30/20 Status: Ordered pantoprazole 20 mg oral delayed release tablet 1 tablet = 20 mg, By Mouth, Daily, # 30 tablet, 0 Refills, Maintenance, 08/26/21 12:54:00 EDT, CR Tablet Start Date: 08/26/21 Status: Ordered ProAir HFA 2 puffs, Inhalation, 4 times a day, PRN Wheezing/Shortness of Breath, 0 Refills, Maintenance, 09/30/12 18:06:47 EDT Start Date: 09/30/12 Status: Ordered Trelegy Ellipta 200 mcg-62.5 mcg-25 [...] class II Confirmed Active Snoring Confirmed Active Social History Social History Type Response Smoking Status Former smoker, quit more than 30 days ago;Former smokeless tobacco user, quit more than 30 days ago; Type: Cigarettes; Tobacco use times per day: 1-3 PPD; Number of years: 19; Stopped at age: 45; entered on: 10/30/20 Sex Patient Care team information Care Team Personnel Name: Lawanda Cody RN Position: S SN RN Member Role: Primary Care Nurse Name: Marvin Carey MD Position: Reference Physician Member Role: PCP Address: Address: [address] [place] [address] Name: Ivy Watts RN [facility] SN Icing Mixer Member Role: Primary Care Nurse Name: Evelia Gomran RN [facility] RN Member Role: Primary Care Nurse Name: Erin Hardy RN Position: S RN Member Role: Primary Care Nurse Name: Jackeline Raines RN Position: S RN Member Role: Primary Care Nurse Name: Rosa Forbes RN Position: S RN Member Role: Primary Care Nurse Care Team Related Persons Name: JODY RIDLEY Address: [address] [place] [address] Name: LEIF GARCIA Address: home [address] [place] [address] Name: LEW WEEMS Address: home [address] [place] [address]
--- OUTSIDE RECORDS SUMMARY | 2023-12-18 05:43 | XMS_ITS | Summary of Care ---
Author Organization [facility] Address [address] [place] [address]- Encounter 11/07/17 - 11/20/17 [facility] [address] [place] [address]- Encounter Diagnosis Spinal stenosis(Discharge Diagnosis) - 11/19/17 Cervical myelopathy(Discharge Diagnosis) - 11/19/17 Spondylolisthesis(Discharge Diagnosis) - 11/19/17 Attending Physician: Dae Lorenzo MD Vital Signs Most recent to oldest [Reference Range]: 1 2 3 Temperature Oral F [96.4-99.1 DegF] 97 DegF (11/20/17 6:50 AM) 96.4 DegF (11/19/17 4:06 PM) 96.6 DegF (11/19/17 6:56 AM) Apical Heart Rate [60-100 bpm] 84 bpm (11/19/17 8:35 AM) Peripheral Pulse Rate [60-100 bpm] 66 bpm (11/20/17 6:50 AM) 60 bpm (11/19/17 4:06 PM) 84 bpm (11/19/17 8:35 AM) Respiratory Rate [14-20 br/min] 20 br/min (11/20/17 6:50 AM) 20 br/min (11/19/17 4:06 PM) 16 br/min (11/19/17 8:35 AM) Blood Pressure [90-140/60-90 mmHg] 140/75mmHg (11/19/17 4:06 PM) Systolic Blood Pressure [90-140 mmHg] 148 mmHg *HI* (11/20/17 6:50 AM) 175 mmHg *HI* (11/19/17 8:08 PM) Diastolic Blood Pressure [60-90 mmHg] 81 mmHg (11/20/17 6:50 AM) 86 mmHg (11/19/17 8:08 PM) Peripheral Pulse Rate with Activity 87 bpm (11/10/17 9:30 AM) Temperature Oral [35.8-37.3 DegC] 36.1 DegC (11/20/17 6:50 AM) 35.8 DegC (11/19/17 4:06 PM) 35.9 DegC (11/19/17 6:56 AM) Problem List Condition Effective Dates Status Health Status Inform ant Asthma(Confirmed) Active Carpal tunnel syndrome(Confirmed) Active Cervical myelopathy(Confirmed) Active HTN - Hypertension(Confirmed) Active JAQUELINE - Obstructive sleep apnea(Confirmed) Active 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(Confirmed) Active Spinal stenosis(Confirmed) Active Spondylolisthesis(Confirmed) 2 Active 1with right sided weakness 2C7 to T1 Allergies, Adverse Reactions, Alerts Substance Reaction Severity Status ibuprofen Active aspirin Active Medications albuterol CFC free 90 mcg/inh inhalation aerosol 180 mcg, 2 puff, Aerosol, INH, q4hr RT PRN, 1 inhaler(s), 0 Refill(s), wheezing Start Date: 11/20/17 Status: Ordered aluminum hydroxide/magnesium hydroxide/simethicone 200 mg-200 mg-20 mg/5 mL oral suspension 30 mL, Susp-Oral, Oral, q4hr PRN, 0 Refill(s), Indigestion Start Date: 11/20/17 Status: Ordered atenolol 25 mg oral tablet 25 mg = 1 tab, Tab, Oral, Daily, 30 tab, 0 Refill(s), Print Requisition Start Date: 11/20/17 Status: Ordered budesonide-formoterol 160 mcg-4.5 mcg/inh inhalation aerosol 2 puff, Aerosol, INH, BID, 1 inhaler(s), 0 Refill(s), Print Requisition Start Date: 11/20/17 Status: Ordered celecoxib 200 mg oral capsule 200 mg = 1 cap, Cap, Oral, Daily, 30 cap, 0 Refill(s), Print Requisition Start Date: 11/20/17 Status: Ordered Flonase 50 mcg/inh nasal spray 100 mcg, 2 spray, Buck[place]-Nasal, Nasal, Daily, 1 bottle, 0 Refill(s), Print Requisition Start Date: 11/20/17 Status: Ordered losartan 50 mg oral tablet 100 mg = 2 tab, Tab, Oral, Daily, 60 tab, 0 Refill(s), Print Requisition Start Date: 11/20/17 Status: Ordered MiraLax 17 gm = 1 EA, Powder, Oral, Daily PRN, 0 Refill(s), Constipation Start Date: 11/20/17 Status: Ordered Mucinex 600 mg oral tablet, extended release 1,200 mg = 2 tab, Tab-ER, Oral, BID, 0 Refill(s) Start Date: 11/20/17 Status: Ordered Norvasc 2.5 mg oral tablet 2.5 mg = 1 tab, Tab, Oral, QHS, 30 tab, 0 Refill(s), Print Requisition Start Date: 11/20/17 Status: Ordered oxyCODONE 5 mg oral tablet 5 mg = 1 tab, Tab, Oral, q6hr PRN, 20 tab, 0 Refill(s), Dispense: 5 day, PAIN (Scale 1-10), Stop date 11/25/17 10:13:00 EDT, Print Requisition Start Date: 11/20/17 Stop Date: 11/25/17 Status: Ordered pregabalin 100 mg oral capsule 100 mg = 1 cap, Cap, Oral, BID, 60 cap, 0 Refill(s), Print Requisition Start Date: 11/20/17 Status: Ordered Senokot S 50 mg-8.6 mg oral tablet 2 tab, Tab, Oral, QHS, 60 tab, 0 Refill(s), Print Requisition Start Date: 11/20/17 Status: Ordered sodium chloride 0.65% nasal spray 2 spray, Buck[place]-Nasal, Nasal, q3hr PRN, 0 Refill(s), do not use for at least 2 hours after use of Flonase, Dry nasal passages Start Date: 11/20/17 Status: Ordered Tylenol Extra Strength 500 mg oral tablet 1,000 mg = 2 tab, Tab, Oral, TID, 0 Refill(s) Start Date: 11/20/17 Status: Ordered Results LABORATORY Most recent to oldest [Reference Range]: 1 2 3 Estimated Creatinine Clearance 38.78 mL/min (11/14/17 7:18 AM) 38.78 mL/min (11/12/17 12:17 PM) 42.58 mL/min (11/11/17 11:26 AM) Creatinine Level 1.12 mg/dL (11/12/17 12:17 PM) 1.02 mg/dL (11/11/17 11:26 AM) 1.10 mg/dL (11/08/17 2:04 PM)
--- OUTSIDE RECORDS SUMMARY | 2023-12-18 05:43 | XMS_ITS | Continuity of Care Document ---
Author Organization [facility] Address Unknown Care Team Providers Care Certified Scrum Master Name Role Phone Aurelio VILLALPANDO, Marvin Wei Primary Care Physician Encounter [facility] [place] Date(s): 08/06/21 - 09/08/21 [facility] Attending Physician: Zeenat Erickson MD Admitting Physician: Zeenat Erickson MD Allergies, Adverse Reactions, Alerts Substance Reaction Severity Status ibuprofen diff. breathing Persistent Severe Active Latex Skin irritation Active Medications acetaminophen-oxycodone 300 mg-2.5 mg oral tablet 1 tablet, By Mouth, Every 6 hours, PRN for pain, 0 Refills, Maintenance, 08/26/21 12:55:00 EDT, Tablet, Partial fill upon patient request if the prescription is for a schedule II opioid drug. Start Date: 08/26/21 Status: Ordered amLODIPine 10 mg oral tablet 10 mg, 1, tablet, By Mouth, Daily, Refills 0, Maintenance, 11/01/20 12:15:00 EDT, Partial fill uponpatient request if the prescription is for a schedule II opioid drug. Start Date: 11/01/20 Status: Ordered atenolol 50 mg oral tablet 25 mg, 0.5, tablet, By Mouth, Daily, Maintenance, 10/22/17 11:02:55 EDT Start Date: 10/22/17 Status: Ordered Azithromycin See Instructions, Maintenance, 250 mg every thu, 08/26/21 12:54:00 EDT Start Date: 08/26/21 Status: Ordered budesonide 0.25 mg/2 mL inhalation suspension 0.25 mg, 2, mL, Neb, 2 times a day, # 120 mL, Refills 0, Maintenance, 08/26/21 12:54:00 EDT, Suspension Start Date: 08/26/21 Status: Ordered Duoneb Inhalation Solution 1, vials, BAND Nebulizer, Every 6 hours, Refills 0, Maintenance, 11/01/20 12:15:00 EDT, Inhalation Solution Start Date: 11/01/20 Status: Ordered Furosemide = 20 mg, Daily, [...] opioid drug. Start Date: 08/26/21 Status: Ordered Isosorbide Mononitrate By Mouth, Daily, 0 Refills, Maintenance, 08/26/21 12:53:00 EDT, Partial fill upon patient request if the prescription is for a schedule II opioid drug. Start Date: 08/26/21 Status: Ordered losartan 100 mg oral tablet 1 tablet = 100 mg, By Mouth, Daily, Maintenance, 10/22/17 11:02:27 EDT, Tablet Start Date: 10/22/17 Status: Ordered montelukast 10 mg oral tablet [...] CR Tablet Start Date: 08/26/21 Status: Ordered predniSONE 50 mg oral tablet See Instructions, 5 tablet By Mouth Every 24 hours X 2days 4 tab daily for 3 days 3 tab daily for 3days 2 tab daily for 3 days 1 tab daily for 3 days and stop, # 40 tablet, 0 Refills, Maintenance, 11/01/20 12:16:00 EDT, Tablet, Partial fill upon... Start Date: 11/01/20 Status: Ordered ProAir HFA 2 puffs, Inhalation, 4 times a day, PRN Wheezing/Shortness of Breath, 0 Refills, Maintenance, 09/30/12 18:06:47 EDT Start Date: 09/30/12 Status: Ordered tamsulosin 0.4 mg oral capsule 0.4 mg, 1, capsule, By Mouth, Daily, # 30 capsule, Refills 0, Maintenance, 10/30/20 16:07:00 EDT, Partial fill upon patient request if the prescription is for a schedule II opioid drug. Start Date: 10/30/20 Status: Ordered Trelegy Ellipta 200 mcg-62.5 mcg-25 mcg/inh inhalation powder 1 puffs, Inhalation, Daily, at the same time every day, 0 Refills, Maintenance, 10/30/20 16:05:00 EDT, Powder, Partial fill upon patient request if the prescription is for a schedule II opioid drug. Start Date: 10/30/20 Status: Ordered Problem List Condition Effective Dates Status Health Status Inform ant Asthma(Confirmed) Active Carpal tunnel syndrome(Confirmed) Active Chronic headache(Confirmed) Active Snoring(Confirmed) Active Social History Social History Type Response Smoking Status Former smoker, quit more than 30 days ago;Former smokeless tobacco user, quit more than 30 days ago; Type: Cigarettes; Tobacco use times per day: 1-3 PPD; Number of years: 19; Stopped at age: 45; entered on: 10/30/20 Sex
--- OUTSIDE RECORDS SUMMARY | 2023-12-18 05:43 | XMS_ITS | Continuity of Care Document ---
Author Organization [facility] Address Unknown Care Team Providers Care Statement Distribution Clerk Name Role Phone Aurelio VILLALPANDO, Marvin Wei Primary Care Physician En[place] [facility] [place] Date(s): 08/09/21 - 11/03/21 [facility] Attending Physician: Mariola Hernandez MD Admitting Physician: Mariola Hernandez MD Allergies, Adverse Reactions, Alerts Substance Reaction [...] Azithromycin See Instructions, Maintenance, 250 mg every thu wed thu, 08/26/21 12:54:00 EDT Start Date: 08/26/21 [...]
--- OUTSIDE RECORDS SUMMARY | 2023-12-18 05:43 | XMS_ITS | Continuity of Care Document ---
Author Organization [facility] Address Unknown Care Team Providers Care Engineering And Operations Director Name Role Phone Aurelio VILLALPANDO, Marvin Wei Primary Care Physician En[place] [facility] [place] Date(s): 11/19/21 - 12/19/21 [facility] Attending Physician: Yvonne Parr Admitting Physician: Yvonne Parr Referring Physician: Yvonne Parr Allergies, Adverse Reactions, Alerts Substance Reaction Severity [...]
--- OUTSIDE RECORDS SUMMARY | 2023-12-18 05:43 | XMS_ITS | Continuity of Care Document ---
Author Organization [facility] Address [address] [place] [address]- Care Team Providers Care Head Golf Professional Name Role Phone Aurelio VILLALPANDO, Marvin Wei Primary Care Physician Encounter [facility] [place] Date(s): 04/19/21 - 04/26/21 [facility] [address] [place] [address]- Encounter Diagnosis Snoring(Discharge Diagnosis) - 04/19/21 Tiredness(Discharge Diagnosis) - 04/19/21 Chronic headache(Discharge Diagnosis) - 04/19/21 Attending Physician: Cheo Mace MD Admitting Physician: Cheo Mace MD Referring Physician: Mariola Hernandez MD Allergies, Adverse Reactions, Alerts Substance Reaction Severity Status ibuprofen diff. breathing Persistent Severe Active Medications acetaminophen 650 mg rectal suppository 1 supp = 650 mg, Rectally, Every 4 hours, PRN Pain , Mild, Temperature Greater than 100.5, 0 Refills, Maintenance, 11/01/20 12:14:00 EDT, Suppository, Partial fill upon patient request if the prescription is for a schedule II opioid drug. Start Date: 11/01/20 Status: Ordered amLODIPine 10 mg oral tablet 10 mg, 1, tablet, By Mouth, Daily, Refills 0, Maintenance, 11/01/20 12:15:00 EDT, Partial fill uponpatient request if the prescription is for a schedule II opioid drug. Start Date: 11/01/20 Status: Ordered aspirin 81 mg oral delayed release tablet 81 mg, By Mouth, Daily, Refills 0, Maintenance, 11/01/20 12:15:00 EDT, Partial fill upon patient request if the prescription is for a schedule II opioid drug. Start Date: 11/01/20 Status: Ordered atenolol 50 mg oral tablet 25 mg, 0.5, tablet, By Mouth, Daily, Maintenance, 10/22/17 11:02:55 EDT Start Date: 10/22/17 Status: Ordered Doxycycline Tablet 100 mg, By Mouth, Every 12 hours, Maintenance, 11/01/20 12:14:00 EDT Start Date: 11/01/20 Status: Ordered Duoneb Inhalation Solution 1, vials, BAND Nebulizer, Every 6 hours, PRN, Refills 0, Maintenance, 11/01/20 12:15:00 EDT, Inhalation Solution Start Date: 11/01/20 Status: Ordered Duoneb Inhalation Solution 1, vials, BAND Nebulizer, Every 6 hours, Refills 0, Maintenance, 11/01/20 12:15:00 EDT, Inhalation Solution Start Date: 11/01/20 Status: Ordered losartan 100 mg oral tablet 1 tablet = 100 mg, By Mouth, Daily, Maintenance, 10/22/17 11:02:27 EDT, Tablet Start Date: 10/22/17 Status: Ordered MiraLax Powder 1 pack/packet = 17 Gm, By Mouth, Daily, PRN Constipation, 0 Refills, Maintenance, 11/01/20 12:18:00EDT, Powder, Partial fill upon patient request if the prescription is for a schedule II opioid drug. Start Date: 11/01/20 Status: Ordered montelukast 10 mg oral tablet [...] opioid drug. Start Date: 10/30/20 Status: Ordered predniSONE 50 mg oral tablet [...] 18:06:47 EDT Start Date: 09/30/12 Status: Ordered Senna 8.6 mg oral tablet 17.2 mg, 2, tablet, By Mouth, Daily, Refills 0, Maintenance, 11/01/20 12:17:00 EDT, Tablet, Partialfill upon patient request if the prescription is for a schedule II opioid drug. Start Date: 11/01/20 Status: Ordered tamsulosin 0.4 mg oral capsule [...] syndrome(Confirmed) Active Chronic headache(Confirmed) Active Snoring(Confirmed) Active Diagnosis Diagnosis Type Effective Dates Health Status Cl inical Service Informant Snoring Discharge Diagnosis 04/19/21 Tiredness Discharge Diagnosis 04/19/21 Chronic headache Discharge Diagnosis 04/19/21 Social History Social History Type Response Smoking Status Former smoker, quit more than 30 days ago;Former smokeless tobacco user, quit more than 30 days ago; Type: Cigarettes; Tobacco use times per day: 1-3 PPD; Number of years: 19; Stopped at age: 45; entered on: 10/30/20 Sex
--- OUTSIDE RECORDS SUMMARY | 2023-12-18 05:43 | XMS_ITS | Continuity of Care Document ---
Author Organization [facility] Address [address] [place] [address]- Care Team Providers Care Gas Cutting Machine Operator Name Role Phone Marvin Carey MD Primary Care Physician Encounter [facility] [place] [place] Date(s): 04/23/22 - 05/23/[address] [address]- Attending Physician: Admtr, Yvonne Admitting Physician: AdmtrYvonne Referring Physician: Admtr, Ar8 Allergies, Adverse Reactions, Alerts Substance Reaction Severity [...] Team Personnel Name: Lawanda Cody RN Position: [facility] RN Member Role: Primary Care Nurse Name: Marvin Carey MD Position: Reference Physician Member Role: PCP Address: Address: [address] [place] [id number] Name: Ivy Watts RN Position: [facility] Packaging Design Engineer Member Role: Primary Care Nurse Name: Evelia Gorman RN Position: S RN Member Role: Primary Care Nurse Name: Erin Hardy RN Position: [facility] PCO RN Member Role: Primary Care Nurse Name: Jackeline Raines RN Position: [facility] RN Member Role: Primary Care Nurse Care Team Related Persons Name: LEIF GARCIA Name: LEW WEEMS Address: [address] [address]
--- OUTSIDE RECORDS SUMMARY | 2023-12-18 05:43 | XMS_ITS | Continuity of Care Document ---
Author Organization [facility] Address [address] [place] [address]- Care Team Providers Care Catering Director Name Role Phone Aurelio VILLALPANDO, Marvin Wei Primary Care Physician Encounter [facility] [place] Date(s): 04/19/21 - 05/19/21 [facility] [address] [address]- Attending Physician: Yvonne Parr Admitting Physician: Yvonne [...]
--- OUTSIDE RECORDS SUMMARY | 2023-12-18 05:43 | XMS_ITS | Continuity of Care Document ---
Author Organization [facility] Cardiac Chelsea randell Address [address] [place] [address] [place] [address]- Care Team Providers Care Web Systems Developer Name Role Phone Aurelio VILLALPANDO, Marvin Wei Primary Care Physician [facility]counter [facility] Date(s): 11/13/23 - 11/20/23 [facility] Cardiac Surgery [address] [place] [address] Drive [address] [place], [place] [address] Attending Physician: Beau Recinos MD Referring Physician: Jose Storey MD Allergies, Adverse Reactions, Alerts Substance Reaction [...] class II Confirmed Active Snoring Confirmed Active Vital Signs Most recent to oldest [Reference Range]: 1 Height 155 cm (11/13/23 11:16 AM) Weight 85.4 kg (11/13/23 11:16 AM) Oxygen Saturation [94-100 %] 94 % (11/13/23 11:16 AM) Pulse Rate [55-90 bpm] 72 bpm (11/13/23 11:16 AM) Body Mass Index [18.5-24.99 kg/m2] 35.55 kg/m2 *>HHI* (11/13/23 11:16 AM) Blood Pressure [90-138/55-84 mm Hg] 128/ 80mm Hg (11/13/23 11:16 AM) Temperature [96.8-100.4 DegF] 97.9 DegF (11/13/23 11:16 AM) Mode of Delivery (Oxygen) Room air (11/13/23 11:16 AM) Blood pressure sites Arm, right (11/13/23 11:16 AM) Temperature Route Oral (11/13/23 11:16 AM) Weight Obtained Via Standing scale (11/13/23 11:16 AM) Social History Social History Type Response Smoking Status Former smoker, quit more than 30 days ago;Former smokeless tobacco user, quit more than 30 days ago; Type: Cigarettes; Tobacco use times per day: 1-3 PPD; Number of years: 19; Stopped at age: 45; entered on: 10/30/20 Sex Cardiac surgery Outpatient Note * Rosie Bowen MA: PERFORM, SIGN, VERIFY Event Display: Cardiac Surgery Note Office Authored Date: Patient: LORNA TRUONG Age: 83 years Sex: Male : 1940 Associated Diagnoses: None Author: Rosie Bowen MA [place] Cardiomyopathy Questionnaire (CQ-12) The following questions refer to your heart failure and how it may affect your life. Please read and complete the following questions. There is no right or wrong answers. Please aysha the answer that best applies to you. 1. Heart failure affects different people in different ways. Some feel shortness of breath while others feel fatigue. Please indicate how much you are limited by heart failure (shortness of breath orfatigue) in your ability to do the following activities over the past 2 weeks. a. Showering/bathing: Extremely Limited (_) 1 Quite a bit limited (_) 2 Moderately Limited (_) 3 Slightly Limited (x) 4 Not at all Limited (_) 5 Limited for other reasons or did not do the activity (_) 6 b. Walking 1 block on level ground: Extremely Limited (x) 1 Quite a bit limited (_) 2 Moderately Limited (_) 3 Slightly Limited (_) 4 Not at all Limited (_) 5 Limited for other reasons or did not do the activity (_) 6 c. Hurrying or jogging (as if to catch a bus): Extremely Limited (x) 1 Quite a bit limited (_) 2 Moderately Limited (_) 3 Slightly Limited (_) 4 Not at all Limited (_) 5 Limited for other reasons or did not do the activity (_) 6 2. Over the past 2 weeks, how many times did you have swelling in your feet, ankles or legs when you woke up in the morning? Every Morning (_) 1 3 or more times per week but not every day (_) 2 1-2 times per week (_) 3 Less than once a week (_) 4 Never over the past 2 weeks (x) 5 3. Over the past 2 weeks, on average, how many times has fatigue limited your ability to do what you wanted? All of the time (_) 1 Several Times per day (_) 2 At least once a day (x) 3 3 or more times per week but not every day (_) 4 1-2 times per week (_) 5 Less than once a week (_) 6 Never over the past 2 weeks (_) 7 4. Over the past 2 weeks, on average, how many times has shortness of breath limited your ability to do what you wanted? All of the time (_) 1 Several Times per day (x) 2 At least once a day (_) 3 3 or more times per week but not every day (_) 4 1-2 times per week (_) 5 Less than once a week (_) 6 Never over the past 2 weeks (_) 7 5. Over the past 2 weeks, on average, how many times have you been forced to sleep sitting up in a chair or with at least 3 pillows to prop you up because of shortness of breath? Every night (_) 1 3 or more times per week but not every day (_) 2 1-2 times per week (_) 3 Less than once a week (_) 4 Never over the past 2 weeks (x) 5 6. Over the past 2 weeks, how much has your heart failure limited your enjoyment of life? It has extremely limited my enjoyment of life (_) 1 It has limited my enjoyment of life quite a bit (x) 2 It has moderately limited my enjoyment of life (_) 3 It has slightly limited my enjoyment of life (_) 4 It has not limited my enjoyment of life at all (_) 5 7. If you had to spend the rest of your life with your heart failure the way it is right now, how would you feel about this? Not at all satisfied (_) 1 Mostly dissatisfied (x) 2 Somewhat satisfied (_) 3 Mostly satisfied (_) 4 Completely satisfied (_) 5 8. How much does your heart failure affect your lifestyle? Please indicate how your heart failure may have limited your participation in the following activities over the past 2 weeks. a. Hobbies, recreational activities: Severely Limited (_) 1 Limited quite a bit (x) 2 Moderately Limited (_) 3 Slightly Limited (_) 4 Did not limit at all (_) 5 Does not apply or did not do for other reasons (_) 6 b. Working or doing vegetable handler: Severely Limited (_) 1 Limited quite a bit (x) 2 Moderately Limited (_) 3 Slightly Limited (_) 4 Did not limit at all (_) 5 Does not apply or did not do for other reasons (_) 6 c. Visiting family or friends out of your home: Severely Limited (x) 1 Limited quite a bit (_) 2 Moderately Limited (_) 3 Slightly Limited (_) 4 Did not limit at all (_) 5 Does not apply or did not do for other reasons (_) 6 Total Score: 30 * Jorje VILLALPANDO, Beau Kellogg: PERFORM Event Display: Cardiac Surgery Note Office Authored Date: Patient: ??FAUSTINALORNA ? Age:??83 Years?Sex:??Male?:??1940?? Chief Complaint Shortness of breath, dyspnea on exertion,??fatigue, malaise??and near syncope History of Present Illness Lorna Truong??is??an 83-year-old white male??whose cardiovascular history is remarkable for hypertension, hyperlipidemia, coronary artery disease and??diastolic congestive heart failure. ??Over the last year, he has noted??progressive symptoms of shortness of breath, dyspnea on exertion,??persistent fatigue and malaise and??near syncope.?He currently has [place] [employer]??class II/III symptoms of heart failure. ??His workup, including an echocardiogram??performed on 08/18/2023,??dem onstrated??preserved??left ventricular function but hypertrophy of the left ventricle.?? The mean gradient across the aortic valve was??26 mmHg.?? The aortic valve area was reduced to??0.7 cm??.??In??aggregate, these findings??are consistent with??low-flow, low gradient??significant??aortic valve stenosis. ? Following this procedure, he underwent cardiac catheterization with coronary angiography.?? 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 There was mild to moderate disease in the left anterior descending and circumflex coronary art eries.?? At the time of this procedure,??the gradient across his aortic valve was 30 mmHg. ?? His past medical history is otherwise remarkable for??chronic obstructive pulmonary disease,??neuropathy,??and??osteoarthritis. ?? His past surgical history is remarkable for??multiple spinal surgeries,??replacement of??both the right and left hips??and bilateral cataract surgeries??with intraocular lens implants. ?? His current medications include isosorbide mononitrate??extended release 30 mg??p.o. daily, prednisone 20 mg p.o. daily, pantoprazole 20 mg??p.o. daily,??gabapentin 100 mg??p.o. 3 times daily, Lasix 40 mg p.o. daily,??atenolol 25 mg p.o. daily, aspirin 81 mg p.o. daily, amlodipine??5 mg p.o. daily,? ?albuterol sulfate??via inhaler??1 puff??every 4 hours as needed, and??Trelegy??Ellipta??aerosol via inhaler??1 puff??a day. ?? He has a prior??history of cigarette smoking but reports having smoked stopped smoking 20 years ago.?? He is a social drinker of alcohol. ??He denies??any history of significant??heavy alcohol alcohol use or abuse. ?? He does require a cane for assistance with ambulation. ?? Due to his progressive symptoms and the??finding of??severe aortic valve stenosis, he??presents to cardiac surgery clinic today to review options for replacement of his aortic valve. Review of Systems Cardiac: Symptoms of congestion: No Symptomatic hypotension: No Symptoms of ischemia: No Constitutional:?? Recent infection: No; no fever, no chills Unintentional weight loss/cachexia: No Respiratory: Symptomatic primary lung disease: No; No cough, No shortness of breath? All other systems are negative unless noted above. Physical Exam Vitals & Measurements T:??97.9?F?? HR:??72??(Peripheral)?? BP:??128/80?? SpO2:??94%?? HT:??155??cm?? WT:??85.4??kg?? BMI:??35.55?? Cardiac: + jugular venous distension??to 4 cm above the clavicles bilaterally 1+ peripheral edema?? Regular??heart??rhythm He??has equal but??diminished 1+??carotid pulses bilaterally??with no carotid bruits. He??has mild varicose veins and 1+??leg edema. General Appearance:??Obese body habitus??and obvious frailty Eyes:??Non-icteric Pulmonary:??Markedly increased anterior posterior diameter. Normal respiratory effort. ??Distant breath sounds??to auscultation. ??Diffuse??end expiratory??wheezing and??rhonchi??on auscultation of the chest. Cardiac:??Regular rate and rhythm, II/ mid to late??systolic murmur heard best at the upper??right sternal border, no S3 or S4 present. Sternum is stable on palpation. No prior sternal incisions. Vascular: 1+ femoral pulses bilaterally Gastrointestinal:??Soft, non-tender, no obvious ascites Musculoskeletal:??Significant and??overt mechanical limitations on movement and mobility??of both lower extremities.?? He requires a cane for assistance with ambulation. Skin:??Intact, no rashes Neurological:??Alert and oriented, no gross deficits Psychiatric:??Appropriate mood and affect?? Assessment/Plan Lorna Truong is an 83-year-old white male who presents with a 6-month history of progressive symptoms of??shortness of breath, dyspnea on exertion and persistent fatigue and malaise.?? His workup,??including an echocardiogram??and cardiac catheterization with coronary angiography, demonstrates thepresence of??severe aortic valve stenosis??and??occlusion of the right coronary artery. ?? Due to his multiple??medical comorbidities and frailty, I have calculated his STS risk score for??mortality with sternotomy and open aortic valve replacement at??9.2%.?? Based on this finding, I haverecommended to him that he undergo a transcatheter aortic valve replacement??to reduce his periprocedural risk of morbidity and mortality.?? He is in agreement with this plan. ?? I have reviewed the planned procedure of transcatheter aortic valve replacement with the patient??preprocedure.?? I have also reviewed the potential complications of the procedure which include but are not limited to:??bleeding, infection,??arrhythmias, stroke,??myocardial infarction,??congestive heart failure??and .?? He understands these risks and wishes to proceed??with transcatheter aortic valve replacement. Follow-Up Appointments No qualifying data available Problem List/Past Medical History Ongoing Asthma Carpal tunnel syndrome Chronic headache Obese class II Snoring Procedure/Surgical History ???Arthrodesis, posterior or posterolateral technique, single level; cervical below C2 segment Medications acetaminophen 325 mg oral tablet, 650 mg, By Mouth, Every 6 hours amLODIPine 10 mg oral tablet, 10 mg= 1 tablet, By Mouth, Daily aspirin 81 mg oral delayed release tablet, 81 mg= 1 tablet, By Mouth, Daily atenolol 50 mg oral tablet, 25 mg= 0.5 tablet, By Mouth, Daily Furosemide, 40 mg, Daily Gabapentin, 100 mg, By Mouth, 3 times a day isosorbide mononitrate 30 mg oral tablet, extended release, 60 mg= 2 tablet, By Mouth, Daily montelukast 10 mg oral tablet, 10 mg= 1 tablet, By Mouth, Daily pantoprazole 20 mg oral delayed release tablet, 20 mg= 1 tablet, By Mouth, Daily ProAir HFA, 2 puffs, Inhalation, 4 times a day, PRN Trelegy Ellipta 200 mcg-62.5 mcg-25 mcg/inh inhalation powder, 1 puffs, Inhalation, Daily Allergies ibuprofen??(diff. breathing) Latex??(Skin irritation) Social History Alcohol Use: Past. Tobacco Use: Former smoker, quit more than 30 days ago. Smokeless tobacco use: Former smokeless tobacco user, quit more than 30 days ago. Type: Cigarettes. Tobacco use times per day: 1-3 PPD. 19 Number of years:. Stopped at age: 45 Years. Patient Care team information Care Team Personnel Name: Lawanda Cody RN Position: [facility] SN RN Member Role: Primary Care Nurse Name: Marvin Carey MD Position: Reference Physician Member Role: PCP Address: Address: [address] [place] [address] Name: Ivy Watts RN Position: [facility] SN Framing Inspector Member Role: Primary Care Nurse Name: Evelia Gorman RN Position: [facility] SN RN Member Role: Primary Care Nurse Name: Erin Hardy RN Position: S RN Member Role: Primary Care Nurse Name: Jackeline Raines RN Position: S RN Member Role: Primary Care Nurse Name: Rosa Forbes RN Position: S RN Member Role: Primary Care Nurse Care Team Related Persons Name: JODY RIDLEY Address: home [address] [place] [address] Name: LEIF GARCIA Address: home [address] [place] [address] Name: LEW TRUONG Address: home [address] [place] [address]
--- OUTSIDE RECORDS SUMMARY | 2023-12-18 05:43 | XMS_ITS | Continuity of Care Document ---
Author Organization [facility] Address Unknown Care Team Providers Care Wind Farm Operations Manager Name Role Phone Aurelio VILLALPANDO, Marvin Wei Primary Care Physician [place] [facility] [place] 09/17/21 - 11/30/21 [facility] Attending Physician: Yasmine Rollins Admitting Physician: Yasmine Rollins Allergies, Adverse Reactions, Alerts Substance Reaction Severity [...]
--- OUTSIDE RECORDS SUMMARY | 2023-12-18 05:43 | XMS_ITS | Continuity of Care Document ---
Author Organization [facility] Cardiac Chelsea randell Address [address] [place] [address] [place] [address]- Care Team Providers Care Air Antisubmarine Officer Name Role Phone Aurelio VILLALPANDO, Marvin Wei Primary Care Physician [facility]counter [facility] Date(s): 11/06/23 - 12/06/23 [facility] Cardiac Surgery [address] [place] [address] Drive [address] [place], [place] [address] Allergies, Adverse Reactions, Alerts Substance Reaction Severity [...] Reference Physician Member Role: PCP Address: Address: [address] [place] [address] Name: Ivy Watts RN Position: S SN Senior Environmental Practice Leader Member Role: Primary Care Nurse Name: Evelia Gorman RN Position: [facility] SN RN Member Role: Primary Care Nurse Name: Erin Hardy RN Position: S RN Member Role: Primary Care Nurse Name: Jackeline Raines RN Position: S RN Member Role: Primary Care Nurse Name: Rosa Forbes RN Position: S RN Member Role: Primary Care Nurse Care Team Related Persons Name: KEYANA JODY Address: home [address] [place] [address] Name: LEIF GARCIA Address: home [address] [place] [address] Name: LEW WEEMS Address: home [address] [place] [address]
--- OUTSIDE RECORDS SUMMARY | 2023-12-18 05:43 | XMS_ITS | Continuity of Care Document ---
Author Organization [facility] Address [address] [place] [address]- Care Team Providers Care Microbiological Analyst Name Role Phone Aurelio VILLALPANDO, Marvin Wei Primary Care Physician [place] [facility] [place] - 11/01/[address] [address] Discharge Disposition: A-D/C Home Attending Physician: Cristina Baker MD Admitting Physician: Lesley Molina MD Referring Physician: Not on Staff, Referring MD Allergies, Adverse Reactions, Alerts Substance Reaction [...] opioid drug. Start Date: 11/01/20 Status: Ordered acetaminophen-oxyCODONE 325 mg-5 mg oral tablet 1 tablet, Tablet, By Mouth, Every 6 hours, PRN for Pain , Severe, Routine, 10/30/20 17:11:00 EDT Start Date: 10/30/20 Stop Date: 11/02/20 Status: Discontinued amLODIPine 10 mg oral tablet 10 mg, Tablet, By Mouth, 11/01/20 9:00:00 EDT Start Date: 11/01/20 Stop Date: 11/01/20 Status: Completed amLODIPine 10 mg oral tablet [...] drug. Start Date: 11/01/20 Status: Ordered atenolol 25 mg oral tablet 25 mg, Tablet, By Mouth, 11/01/20 9:00:00 EDT Start Date: 11/01/20 Stop Date: 11/01/20 Status: Completed atenolol 50 mg oral tablet 25 mg, [...] EDT, Tablet Start Date: 10/22/17 Status: Ordered losartan 50 mg oral tablet 100 mg, Tablet, By Mouth, 11/01/20 9:00:00 EDT Start Date: 11/01/20 Stop Date: 11/01/20 Status: Completed MiraLax Powder 1 pack/packet = 17 Gm, [...] ant Asthma(Confirmed) Active Carpal tunnel syndrome(Confirmed) Active Vital Signs Most recent to oldest [Reference Range]: 1 2 3 4 Weight 80.3 kg (11/01/20 2:48 AM) Oxygen Saturation [94-100 %] 92 % *L* (11/01/20 1:51 PM) 96 % (11/01/20 7:42 AM) 93 % *L* (11/01/20 2:48 AM) Pulse Rate [55-90 bpm] 88 bpm (11/01/20 1:51 PM) 81 bpm (11/01/20 8:14 AM) 81 bpm (11/01/20 7:42 AM) Blood Pressure [90-138/55-84 mm Hg] 142/79mm Hg *H* (11/01/20 1:51 PM) 144/83mm Hg *H* (11/01/20 8:14 AM) 144/83mm Hg *H* (11/01/20 8:14 AM) 144/83mm Hg *H* (11/01/20 8:14 AM) Respiratory Rate [16-30 br/min] 18 br/min (11/01/20 2:01 PM) 18 br/min (11/01/20 1:51 PM) 18 br/min (11/01/20 1:01 PM) Temperature [96.8-100.4 DegF] 98.0 DegF (11/01/20 1:51 PM) 97.6 DegF (11/01/20 7:42 AM) 97.7 DegF (11/01/20 2:48 AM) Mode of Delivery (Oxygen) Room air (11/01/20 1:51 PM) Room air (11/01/20 7:42 AM) Room air (11/01/20 2:48 AM) Blood pressure sites Arm, left (11/01/20 1:51 PM) Arm, left (11/01/20 7:42 AM) Arm, left (11/01/20 2:48 AM) Temperature Route Oral (11/01/20 1:51 PM) Oral (11/01/20 7:42 AM) Oral (11/01/20 2:48 AM) Weight Obtained Via Bed scale (11/01/20 2:48 AM) Social History Social History Type Response Smoking Status Former smoker, quit more than 30 days ago;Former smokeless tobacco user, quit more than 30 days ago; Type: Cigarettes; Tobacco use times per day: 1-3 PPD; Number of years: 19; Stopped at age: 45; entered on: 10/30/20 Sex
--- OUTSIDE RECORDS SUMMARY | 2023-12-18 05:43 | XMS_ITS | Continuity of Care Document ---
Author Organization [facility] Address Unknown Care Team Providers Care Outcomes Analyst Name Role Phone Aurelio VILLALPANDO, Marvin Wei Primary Care Physician Encounter [facility] [place] 08/09/21 - 09/08/21 [facility] Allergies, Adverse Reactions, Alerts Substance Reaction Severity [...]
--- OUTSIDE RECORDS SUMMARY | 2023-12-18 05:43 | XMS_ITS | Continuity of Care Document ---
Author Organization [place] Address [address] [place] [address]- Care Team Providers Care Harmonic Analyst Name Role Phone Aurelio VILLALPANDO, Marvin Wei Primary Care Physician [facility]counter [facility] Date(s): 04/09/22 - 05/09/[address] [address] Attending Physician: Yvonne Parr Admitting Physician: AdmtrYvonne Referring Physician: Admtr, [id number] [...] Team Personnel Name: Lawanda Cody RN Position: [facility] RN Member Role: Primary Care Nurse Name: Marvin Carey MD Position: Reference Physician Member Role: PCP Address: Address: [address] [place] [address] Name: Ivy Watts RN Position: [facility] SN Assistant Press Operator Offset Member Role: Primary Care Nurse Name: Evelia Gorman RN Position: [facility] RN Member Role: Primary Care Nurse Name: Erin Hardy RN Position: [facility] PCO RN Member Role: Primary Care Nurse Care Team Related Persons Name: LEIF GARCIA Name: LEW WEEMS Address: [address] [address]
--- OUTSIDE RECORDS SUMMARY | 2023-12-18 05:43 | XMS_ITS | Continuity of Care Document ---
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 Name Role Phone Marvin Carey MD Primary Care Physician Encounter [facility] [place] Date(s): 09/22/23 - 09/22/[address] [address] Discharge Disposition: A-D/C Home Attending Physician: Jamie Wilson MD Admitting Physician: Jamie Wilson MD Referring Physician: Jamie Wilson MD Allergies, Adverse Reactions, Alerts Substance Reaction [...] to oldest [Reference Range]: 1 2 3 Height 155 cm (09/22/23 7:30 AM) Weight 85.4 kg (09/22/23 7:30 AM) Oxygen Saturation [94-100 %] 96 % (09/22/23 2:00 PM) 94 % (09/22/23 1:00 PM) 97 % (09/22/23 12:30 PM) Pulse Rate [55-90 bpm] 64 bpm (09/22/23 7:30 AM) Body Mass Index [18.5-24.99 kg/m2] 35.55 kg/m2 *>HHI* (09/22/23 7:30 AM) Blood Pressure [90-138/55-84 mm Hg] 125/75mm Hg (09/22/23 2:00 PM) 122/67mm Hg (09/22/23 1:00 PM) 116/64mm Hg (09/22/23 12:30 PM) Respiratory Rate [16-30 br/min] 22 br/min (09/22/23 2:00 PM) 7 br/min *L* (09/22/23 1:00 PM) 9 br/min *L* (09/22/23 12:30 PM) Temperature [96.8-100.4 DegF] 97.6 DegF (09/22/23 7:30 AM) Liters per Minute 2 L/min (09/22/23 11:00 AM) Mode of Delivery (Oxygen) Room air (09/22/23 2:00 PM) Nasal cannula (09/22/23 1:00 PM) Nasal cannula (09/22/23 12:30 PM) Blood pressure sites Arm, left (09/22/23 2:00 PM) Arm, left (09/22/23 1:00 PM) Arm, left (09/22/23 12:30 PM) Temperature Route Temporal (09/22/23 7:30 AM) Dry Weight 85.4 kg (09/22/23 7:30 AM) Weight Obtained Via Standing scale (09/22/23 7:30 AM) Dry Weight Obtained Via Standing scale (09/22/23 7:30 AM) Social History Social History Type Response Smoking Status Former smoker, quit more than 30 days ago;Former smokeless tobacco user, quit more than 30 days ago; Type: Cigarettes; Tobacco use times per day: 1-3 PPD; Number of years: 19; Stopped at age: 45; entered on: 10/30/20 Sex Cardiac catheterization study * Event Display: Cardiac Wire Strander Report Authored Date: [id number] Cardiac Diagnostic Report Demographics Patient Name FAUSTINA ROTHMAN Gender Male [employer] Room Number PANX Height 61.02 inches Date of 1940 Weight 188.28 pounds Age 83 year(s) BSA 1.84 m2 Accession Number [id number] BMI 35.55 kg/m2 Referring Physician Marvin Carey MD Date of Study 09/22/2023 Performing Physician Jamie Wilson MD Fellow Interventional Physician Jamie Wilson MD Procedure Procedure Type Diagnostic procedure:Coronary Angiography, RHC, LHC Miscellaneous:ACT , ULTRASOUND GUIDANCE ACC Diagnostic Catheterization Status:Elective Indications Indications: Aortic valve disease. Clinical History Admission Medications + +------+-------+ + + +---------+ !Medication !Dosage!Times !Last !Last !Administered !Comments ! ! ! !Per Day!Delivery !Delivery ! ! ! ! ! ! !Date !Time ! ! ! + +------+-------+ + + +---------+ !Aspirin (any)!81 mg !x 1 !09/22/2023 !00:00 ! ! ! + +------+-------+ + + +---------+ !Calcium !10 mg !x 1 !09/22/2023 !00:00 ! ! ! !Channel ! ! ! ! ! ! ! !Samantha ! ! ! ! ! ! ! + +------+-------+ + + +---------+ !Beta Samantha !50 mg !x 1 !09/22/2023 !00:00 ! ! ! !(any) ! ! ! ! ! ! ! + +------+-------+ + + +---------+ !Nitrate (Any)!60 mg !x 1 !09/22/2023 !00:00 ! ! ! + +------+-------+ + + +---------+ Clinical Evaluation Leading to Procedure - There were no CAD presentation symptoms. - There were no anginal symptoms. - The patient was diagnosed with a heart failure condition. Heart failure type: Diastolic. - The patient's heart failure status was assessed as NYHA Class III ACC Risk Factors The patient risk factors include:obesity, physical activity, treated and uncontrolled hypercholesterolemia, treated and uncontrolled hypertension, chronic lung disease, last creatinine: 1.1 mg/dl, creatinine clearance: 61.46 ml/min, dyslipidemia, former tobacco use and prior heart failure. Additional Clinical History:Pleasant 83-year-old gentleman who has known history of coronary artery disease now presenting for shortness of breath and new diagnosis of congestive heart failure. Echocardiography has raise concern for low-flow low gradient aortic valve stenosis. He is here for left and right heart catheterization. Procedure Data Procedure Date Date: 09/22/2023Start: 09:35End: 10:24 The procedure was explained in detail to the patient. Risks, complications and alternative treatments were reviewed. Written consent was obtained. Entry Locations - Antegrade Percutaneous access was performed through the Right Femoral vein. A 4 Fr sheath was inserted. This was exchanged for a 7 Fr sheath. Hemostasis was successfully obtained using Manual Compression. Closure Comments: being pulled in panu. - Retrograde Percutaneous access was performed through the Right Radial artery (Primary location). A 6 Fr sheath was inserted. Hemostasis was successfully obtained using TR Band. Closure Comments: 13 ccs. Venous access obtained. Procedure Medications - Versed (Midazolam) I.V. 0.5 mg. - Fentanyl I.V. 25 mcg. - Oxygen NC 2 l/min. - Lidocaine 2% S.C. Right groin 10 ml. - Lidocaine 2% S.C. Right Wrist 10 ml. - Nitroglycerin I.A. 200 mcg. - Heparin I.V. 4000 units. Sedation: My intra-service moderate sedation time was: from 928 to 1014. Refer to procedural log for detailed chronological information. Contrast Material - Omnipaque 30 ml Diagnostic Catheters - AControlCath TD Catheter 7F 110 cm Syntheticwas used for: Right heart catheterization. - AControlCath TD Catheter 7F 110 cm Syntheticwas used for: Right heart catheterization. - ADxTerity 5F 100 cm JR 4.0was used for: Right coronary angiography. - ADxTerity 5F 100 cm JL 3.5was used for: Left coronary angiography. Fluoroscopy Time: Diagnostic: 6:46 minutes. Total: 6:46 minutes. Fluoroscopy Dose: Diagnostic: 232 mGy. Total: 232 mGy. Dose Area Product:PCI: 64758 mGy/cm2. Total: 36475 mGy/cm2. Procedure Narrative We accessed the right common femoral vein using ultrasound guidance and fluoroscopy with 7 Icelandic sheath. We placed a 6 Icelandic sheath using ultrasound in the right radial artery. We performed right heart catheterization. The first Maricao-Steve catheter had some issue with the balloon and we could not wedge and we had to exchange for a new Mar[place]o. After this we performed angiography of the right coronary artery with JR4. Using JR4 and baby J wire we were able to cross into LV. Our plan initially was to do a [place] pigtail but we found out during the case that we do not have any in stock. We performed a pullback which showed mean gradient of 25 mmHg which is quite similar to what we saw on echocardiography. We performed angiography of left coronary system with JL 3 5. Aortic valve area by 0.81. Stroke-volume index 30. Hemostasis regular TR band. Manual compression at the venous site. Angiographic Findings Cardiac Arteries and Lesion Findings LMCA: Normal. LAD: Mild luminal irregularities. Moderate first stenosis. LCx: Normal. RCA: Lesion in Prox RCA: Proximal subsection.100% stenosis .Chronic total occlusion. Hemodynamics Condition: Rest O2 Consumption: Estimated: 250.24Heart Rate: 67 bpm Oxygen Saturation +--------+-----+----+ +----+ + !Location!pCO2 !pO2 !% Saturation!Hgb !O2 Content! +--------+-----+----+ +----+ + !AO ! ! !90 !14.8! ! +--------+-----+----+ +----+ + !PA ! ! !62.1 !14.8! ! +--------+-----+----+ +----+ + Pressures (mmHg) +-----+ + !Site !Pressure ! +-----+ + !RV !35/10 ,15 ! +-----+ + !RA !14/13 (12) ! +-----+ + !PCW ! (21) ! +-----+ + !PA !35/19 (25) ! +-----+ + !AO !106/62 (81)! +-----+ + !LV !144/12 ,27 ! +-----+ + !AO !126/67 (92)! +-----+ + !LV !149/12 ,30 ! +-----+ + Cardiac Output +------+ + +-------+ !Method!CO (l/min)!CI (l/min/m2)!SV (ml)! +------+ + +-------+ !Bryan !3.8 !2.1 !56.8 ! +------+ + +-------+ Valve Gradients and Areas +------+----+----+----+-----+------+------+ !Valve !Peak!Mean!Area!Index!Flow !Source! +------+----+----+----+-----+------+------+ !Aortic!23 !25 !0.81!0.44 !179.33!Bryan ! +------+----+----+----+-----+------+------+ !Aortic!23 !25 ! ! ! ! ! +------+----+----+----+-----+------+------+ Vascular Resistance (dynes x sec x cm-5) +---------+----+-----+----+----+---------+-------+ !CO method!TSVR!SVR !TPVR!PVR !TPVR/TSVR!PVR/SVR! +---------+----+-----+----+----+---------+-------+ !Bryan !24.2!21 !6.59!1.04!0.27 !0.05 ! +---------+----+-----+----+----+---------+-------+ !Qp or Qs !33.2!28.81! ! ! ! ! +---------+----+-----+----+----+---------+-------+ Shunts Oxygen Values O2 Consumption 250.24 Flows (l/min) Qs 2.77 Interventional Procedure Conclusions Diagnostic Summary Pleasant 83-year-old gentleman who had new diagnosis of congestive heart failure and low-flow low gradient aortic valve stenosis. Hemodynamics: Normal systemic pressures. Elevated LVEDP 27 to 30 mmHg. Mean gradient across aortic valve 25 mmHg. Aortic valve area 0.81. Stroke-volume index 30. Pulm capital wedge pressure 21 mmHg, RV 35/10 mean 15, PA 35/19 mean 25, RA of 12 mmHg. Coronary anatomy: Right dominant circulation. Proximal RCA [employer] with [id number] collaterals. No significant disease in the LAD or circumflex. Moderate first diagonal stenosis. The patient has low-flow low gradient severe aortic valve stenosis. He has elevated filling pressures at rest. Diagnostic Recommendations Continue aspirin 81 mg/day indefinitely. Aggressive secondary risk factor modification according to ATP III guidelines. Titrate diuretics dose. Will refer to heart team for transcatheter aortic valve placement. ACC Diagnostic Recommendations: Other cardiac therapy without CABG or PCI. Complications:None. Signatures * Event Display: Cardiac Wire Strander Report Authored Date: [id number] Note * Event Display: Hemodynamic Procedure Report Authored Date: * Event Display: Hemodynamic Procedure Report Authored Date: * Chana Vicente RN: PERFORM Event Display: Discharge/Transfer Note Hospital Authored Date: [id number] Nursing Discharge Note Entered On: 09/22/2023 15:47 EDT Performed On: 09/22/2023 15:07 EDT by Chana Vicente RN Nursing Discharge Note 2 Discharge Time : 09/22/2023 15:07 EDT Discharge Level of Care at Discharge : Home/Alf/Foster Care Patient Left Unit Via : Wheelchair Patient Accompanied Off Unit with : Responsible adult DC Instructions Provided & Signed by Pt : Yes Patient Understands D/C Instructions : Yes Patient Instructions Discharge Signed : Yes Discharge Comments : R radial and R groin sites stable Did Pt have Specialty Bed or Wound Vac : No Chana Vicente RN - 09/22/2023 15:46 EDT * Chana Vicente RN: PERFORM Event Display: Patient Education/Instruction Authored Date: [id number] Inpatient Adult Discharge Instructions. [address] [address] Name: LORNA WEEMS : 1940?? Visit: 09/22/2023 06:27?? Current Date: 09/22/2023 14:34 ?? Account: [id number]?? Inpatient Adult Discharge Instructions We would like [...] and their families. Surveys are administered by [employer]. ?? If further treatment with your primary care physician or another doctor is recommended, it is important for you to keep the appointment. Call your primary care physician or return to the Emergency Department immediately if your condition worsens, fails to improve, or new symptoms develop. If you need to find a doctor, you can call [facility] [employer] Link for a referral at [phone] or toll free at [phone]) or log in to [email or web address].. ?? [facility], in keeping with [facility] guidance, no longer requires face masks for staff, patientsor visitors in most situations. Similiar to time spent indoors at other locations, there is the chance that you were exposed to repiratory viruses during your time with us (such as flu or COVID-19). If you develop symptoms concerning for a viral respiratory infection, please seek testing (and treatment if indicated) from your medical provider or home test kit. ?? You can view and manage your care through the patient portal or by using a health care aminah of your choosing. [employer] is a website that allows you to securely view your medical information including your hospital discharge summary, office visit summaries, medications and follow-up visits. You can also request appointments, renew medications, and request access to your medical information using a health care aminah of your choosing, or just ask a question. You can enroll at [email or web address] or register during your next office visit. You have been discharged from [facility], Patient Care Unit: PANU??. If you have any questions regarding these instructions, including results of studies pending, afteryou leave, please call us and we will be happy to assist you 15/12. [facility] Nursing Unit Direct Phone Number, for 15/12 contact and results of studies pending [facility] [address] [place] [address] Your Care Team Attending Physician Jamie Wilson MD?? Consulting Providers Jamie Wilson MD?? Discharging Providers Jamie Wilson MD Tests Performed Below is a partial list of the tests performed during your hospitalization. You may have had other tests and procedures not included in this list. Please discuss all test results with your provider. Type and Screen No tests performed during this visit.?? Primary Care Provider Marvin Carey MD? Advance Directive Health Care Proxy on File Yes - Health Care Proxy Discharge Vitals Temperature: 97.6 DegF Height: 155 cm Pulse Rate: 64 bpm Weight: 85.4 kg Respiratory Rate:??7 br/min??Low Body Mass Index:??35.55 kg/m2??Critical Systolic Blood Pressure: 122 mm Hg Body surface area: 1.92 Diastolic Blood Pressure: 67 mm Hg ?? Oxygen Saturation: 94 % ?? Studies Pending All studies ordered during this hospital stay have been completed unless listed below. Please discuss all pending results with your provider listed above in these instructions. ?? No incomplete studies found?? What to do next Instructions From Your Doctor ?? Orders?? Daystay Protocol, ??09/22/23 10:45:00 EDT?? You Need to Schedule the Following Appointments Follow Up with??As Needed Discharge Medications LORNA WEEMS :1940 Visit Date:09/22/2023 Medications: Please continue your medications until treatment is completed or stopped by your provider. Medications not listed below should be discontinued. Discuss any questions related to medications with your provider. What How Much When Instructions Next Dose Changed Aspirin (aspirin 81 mg oral delayed release tablet) 1 tab(s) Oral Daily PRESCRIBED Changed Furosemide 40 Milligram Daily PRESCRIBED Unchanged Acetaminophen (acetaminophen 325 mg oral tablet) 650 Milligram Oral Every 6 hours PRESCRIBED Unchanged Albuterol (ProAir HFA) 2 puff(s) Inhalation 4 times a day as needed for Wheezing/Shortness of Breath PRESCRIBED Unchanged Amlodipine (amLODIPine 10 mg oral tablet) 1 tab(s) Oral Daily PRESCRIBED Unchanged Atenolol (atenolol 50 mg oral tablet) 0.5 tab(s) Oral Daily PRESCRIBED Unchanged fluticasone/ umeclidinium/ vilanterol (Trelegy Ellipta 200 mcg-62.5 mcg-25 mcg/ inh inhalation powder) 1 puff(s) Inhalation Daily at the same time every day ?? PRESCRIBED Unchanged Gabapentin 100 Milligram Oral 3 times a day PRESCRIBED Unchanged Isosorbide Mononitrate (isosorbide mononitrate 30 mg oral tablet, extended release) 2 tab(s) Oral Daily PRESCRIBED Unchanged Montelukast (montelukast 10 mg oral tablet) 1 tab(s) Oral Daily PRESCRIBED Unchanged Pantoprazole (pantoprazole 20 mg oral delayed release tablet) 1 tab(s) Oral Daily PRESCRIBED ?? What How Much When Comments Stop Taking Docusate (Colace Capsule) 100 Milligram Oral Twice a day Stop Taking Fexofenadine (Mucinex Allergy 180 mg oral tablet) 1 tab(s) Oral Twice a day Stop Taking Polyethylene Glycol 3350 (MiraLax Powder) 17 gram Oral Daily as needed for Constipation Stop Taking Senna (senna 187 mg oral tablet) 1 tab(s) Oral Daily at Bedtime as needed for as needed for constipation Stop Taking Tamsulosin (tamsulosin 0.4 mg oral capsule) 1 capsule Oral Daily Prescription Given During Visit No new medications prescribed at time of discharge.?? Laboratory Results Below is a partial list of the most recent Laboratory test results done prior to this discharge. You may have had other tests and procedures not included in this list. Please discuss all test resultswith your provider. Type and Screen (09/22/2023) ???Blood Type - B Positive???Antibody Screen - Negative Allergies (NKA means No Known Allergies) ibuprofen??(diff. breathing) Latex??(Skin irritation) Problems Active Problems??(11) Asthma?? Asthma?? Carpal tunnel syndrome?? Childhood Seizures, treated with Dilantin- no current Rx or problems?? Chronic headache?? HTN?? Obese class II?? JAQUELINE?? S/P L THR 2009?? Snoring?? Spinal Stenosis?? Education Materials Below is the list of Educational Leaflet Providered with your Discharge Instructions. Web[employer] Ignite Patient Education - Surgery Radial Cath Approach Discharge Instructions?? Web[employer] Patient Education - M-Groin I Discharge Instructions?? Valuables and Belongings I fully understand and agree that [facility] accepts no responsibility for all my personal [...] encouraged to send valuables and belongings home. ? Other Discharge Information ? Pulmonary Rehab Status?? Pulmonary Rehab Discharge Status?? Respiratory Rate:??7 br/min??Low ? Common Emergency Awareness Tips IS IT [...] are strongly encouraged to quit. Please call [facility] [employer] [facility] at [phone] or [phone] ([phone]) or log in to [email or web address] for referrals to smoking cessation programs. ?? 710 Suicide & Crisis Lifeline is available 15/12 if you or someone you know needs to find a reason to keep living. By calling 931 you'll be connected to a skilled, trained counselor at a crisis center in your area. INPATIENT DISCHARGE INSTRUCTIONS SIGNATURE PAGE LORNA WEEMS Location:[facility] Registration Date and Time:09/22/2023 06:27 EDT Primary Care Physician: Marvin Carey MD, Attending Physician: Steve VILLALPANDO, Jamie, I LORNA WEEMS, have received the above patient education materials/instructions and have verbalized understanding. If ambulance or transport services are being used I further acknowledge being given a choice of service. ?? If you need to contact me, please call me at this number: . Patient/Nuisance Wildlife Trapper Name: Patient/Nuisance Wildlife Trapper Signature: Relationship to Patient: Witness Name/Signature: Date: * Chana Vicente RN: PERFORM Event Display: Patient Education Leaflets Authored Date: [id number] Surgery Radial Cath Approach Discharge Instructions ?? 278 Radial Cath Approach Discharge Instructions ?? Activity Take it easy the rest of the day. Limit your activity on the affected side.?? Act as if your arm is broken for 24 hours. No lifting with affected arm for 24 hours. No pushing or pulling with the affected arm. Do not reach or lift with the affected arm. Do not place excessive pressure on the wrist. ?? Precautions Due to intravenous sedation: It is recommended that someone stay with you for the first night after your procedure. Do not drive or operate hazardous machinery for 24 hours. Do not make legal decisions for 24 hours. Avoid alcohol for 24 hours. Unless directed otherwise, keep yourself hydrated. ?? Dressing/Incision Care You may remove the dressing 24 hours after your procedure. Replace with band aid for an additional 24 hours. You may shower and cleanse the site with soap & water then pat dry. Avoid submersion of site in water x 5 days. Cover the with a clean band aid daily until site is healed. If the band aid becomes soiled, replacewith a clean new one. Do not apply any ointments, lotions, gels or powders to the puncture site. ?? When to contact your doctor If any of the following signs of infection occur: Fever greater than 100 degrees F Increased pain Drainage, redness or warmth at puncture site Tingling of the fingers and hand that last longer than 3 days Slight bubble of blood or bleeding from site: apply manual pressure and notify your doctor ?? Emergency situations: Bleeding from the site that will not stop: apply manual pressure and notify your doctor Profuse bleeding streaming from the puncture site: Apply manual pressure and notify your doctor immediately If your hand becomes bluish, cold to the touch, or painful, notify your doctor immediately or go toEmergency Department. For these emergent situations: If unable to contact your physician, call 911. ?? * Chana Vicente RN: PERFORM Event Display: Patient Education Leaflets Authored Date: M-Groin I Discharge Instructions ?? 179 Groin Discharge Instructions No heavy lifting over 10 pounds (for example: gallon of milk) 1 week following the procedure; gradually increase normal activity over the next 5 days. Avoid straining/pushing when moving bowels You may feel like resting more after your procedure. Slowly start to do more each day. Rest when you feel it is needed. Make sure to look at your procedure site every day until it is completely healed. You may see bruising at the puncture site and that is common after the procedure. You may shower the day after your procedure. Remove the band aid before showering. Wash the area gently with soap and water. Leave open to air. Do not take tub baths, hot tubs, soaking of the puncture site or swimming for 1 week. Do not put any creams, powders or lotions on your puncture site You may resume sexual activity the day after your procedure; avoid bending the hip on ?? the side of the groin puncture excessively and any strenuous positions for 1 week. Call your doctor if your procedure site develops any of the following: ??? New onset severe pain ??? New onset lump or swelling ??? Bleeding that does not stop with lightpressure ? History and physical note * Event Display: History and Physical Hospital Authored Date: EKG study * Event Display: ECG 12-Lead Authored Date: Please click on pdf link to open report * Event Display: ECG 12-Lead Authored Date: Ventricular Rate: 64 BPM Atrial Rate: 64 BPM P-R Interval: 196 ms QRS Duration: 92 ms Q-T Interval: 448 ms QTC Calculation(Bazett): 462 ms P [place]: 35 degrees R [place]: 58 degrees T [place]: -1 degrees Normal sinus rhythm Minimal voltage criteria for LVH, may be normal variant Borderline ECG When compared with ECG of 14-APR-2022 14:38, No significant change was found Confirmed by ROSS BURGOS ([id number]) on 09/22/2023 8:20:18 AM Deep Water: ROSS BURGOS Patient Care team information Care Team Personnel Name: Lawanda Cody RN Position: [facility] RN Member Role: Primary Care Nurse Name: Marvin Carey MD Position: Reference Physician Member Role: PCP Address: Address: [address] [place] [address], [place], [place] [address] Name: Ivy Watts RN Position: [facility] Heavy Equipment Service Technician Member Role: Primary Care Nurse Name: Evelia Gorman RN Position: [facility] RN Member Role: Primary Care Nurse Name: Erin Hardy RN Position: S RN Member Role: Primary Care Nurse Name: Jackeline Raines RN Position: S RN Member Role: Primary Care Nurse Care Team Related Persons Name: LEIF GARCIA Address: home [address] [place] [address] Name: LEW WEEMS Address: home [address] [place] [id number]
--- OUTSIDE RECORDS SUMMARY | 2023-12-18 05:43 | XMS_ITS | Continuity of Care Document ---
Author Organization [facility] Address [address] [place] [id number]- Care Team Providers Care Forest Ranger Name Role Phone Aurelio VILLALPANDO, Marvin Wei Primary Care Physician Encounter [facility] [place] Date(s): 04/14/22 - 05/14/22 [facility] [address] [place] [id number] Attending Physician: Admkhushboo, Yvonne Admitting Physician: AdmtrYvonne Referring Physician: Admtr, [...] 2 times a day, Refills 0, Maintenance, 12/17/22 8:16:00 EST, Partial fill upon patient request [...] Date: 05/10/22 Stop Date: 05/17/22 Status: Ordered pantoprazole 20 mg oral delayed [...] Team Personnel Name: Lawanda Cody RN Position: [facility] RN Member Role: Primary Care Nurse Name: Marvin Carey MD Position: Reference Physician Member Role: PCP Address: Address: [address] [place] [address], [address] Name: Ivy Watts RN Position: [facility] SN Farm Consultant Member Role: Primary Care Nurse Name: Evelia Gorman RN Position: [facility] RN Member Role: Primary Care Nurse Name: Erin Hardy RN Position: [facility] PCO RN Member Role: Primary Care Nurse Name: Jackeline Raines RN Position: [facility] RN Member Role: Primary Care Nurse Care Team Related Persons Name: LEIF GARCIA Name: LEW WEEMS Address: [address] [address]
--- OUTSIDE RECORDS SUMMARY | 2023-12-18 05:43 | XMS_ITS | Continuity of Care Document ---
Author Organization [facility] Address Unknown Care Team Providers Care Combat Systems Officer Name Role Phone Aurelio VILLALPANDO, Marvin Wei Primary Care Physician [place] [facility] 05/11/21 - 09/08/21 [facility] Attending Physician: Mariola Hernandez MD Admitting [...]
--- OUTSIDE RECORDS SUMMARY | 2023-12-18 05:43 | XMS_ITS | Continuity of Care Document ---
Author Organization [facility] Address [address] [facility], [address] Floor, [address] [place] [id number]- Care Team Providers Care Equipment Technician Name Role Phone Aurelio VILLALPANDO, Marvin Wei Primary Care Physician Encounter [facility] Date(s): 11/30/20 - 12/30/20 [facility] [address] [place], [address], [address] [place] [id number]- Allergies, Adverse Reactions, Alerts Substance Reaction Severity [...] ant Asthma(Confirmed) Active Carpal tunnel syndrome(Confirmed) Active Social History Social History Type Response Smoking Status Former smoker, quit more than 30 days ago;Former smokeless tobacco user, quit more than 30 days ago; Type: Cigarettes; Tobacco use times per day: 1-3 PPD; Number of years: 19; Stopped at age: 45; entered on: 10/30/20 Sex
--- OUTSIDE RECORDS SUMMARY | 2023-12-18 05:43 | XMS_ITS | Continuity of Care Document ---
Author Organization [facility] Address Unknown Care Team Providers Care Paper Ruler Name Role Phone Aurelio VILLALPANDO, Marvin Wei Primary Care Physician Encounter [facility] [place] Date(s): 08/06/21 - 09/08/21 [facility] Attending Physician: Zeenat Erickson MD Admitting [...]
[2023-12-18 05:56] LABS: Basophils Absolute Auto 0.1 X10*3/uL (0.0-0.2); Basophils Percent Auto 1.1 % (0-2); Eosinophils Absolute Auto 0.2 X10*3/uL (0.0-0.4); Eosinophils Percent Auto 1.9 % (0-4); Hematocrit 38.6 % (42.0-52.0); Hemoglobin 12.6 g/dl (14.0-18.0); Imm Gran Abs Auto 0.02 X10*3/uL (0.00-0.03); Imm Gran Pct Auto 0.2 % (0.0-0.4); Lymphocytes Absolute Auto 1.3 X10*3/uL (1.2-4.9); Lymphocytes Percent Auto 15.3 % (20-40); MANUAL DIFF FLAG NO; Mean Corpuscular HGB Conc 32.6 g/dl (31.0-36.0); Mean Corpuscular Hemoglobin 29.2 pg (27.0-33.0); Mean Corpuscular Volume 89.4 fL (80.0-98.0); Mean Platelet Volume 9.3 fL (9.4-12.4); Monocytes Absolute Auto 1.4 X10*3/uL (0.1-1.2); Monocytes Percent Auto 16.8 % (2-11); Neutrophils Absolute Auto 5.3 x10*3/uL (2.0-8.3); Neutrophils Percent Auto 64.7 % (45-73); Platelet Count 214 X10*3/uL (160-400); Red Blood Count 4.32 X10*6/uL (4.60-5.80); Red Cell Distribution Width 12.6 % (11.0-16.0); White Blood Count 8.3 X10*3/uL (4.8-10.8)
[2023-12-18 06:15] LABS: Alanine Aminotransferase 15 U/L (0-40); Albumin Level 3.8 g/dL (3.5-5.0); Alkaline Phosphatase 79 U/L (39-117); Anion Gap 14 (12-20); Aspartate Amino Transferase 15 U/L (5-37); Bilirubin Total 0.6 mg/dL (0.0-1.0); Blood Urea Nitrogen 18 mg/dL (9-16); Calcium 9.5 mg/dL (8.4-10.2); Carbon Dioxide 28 mmol/L (22-29); Chloride 106 mmol/L (96-108); Creatinine Clr Calc Pharmacy 51.1; Estimated Glomerular Filt Rate > 60; Glucose Random 123 mg/dL (60-115); Potassium 3.5 mmol/L (3.3-5.1); Sodium 144 mmol/L (135-145); Total Protein 7.1 g/dL (6.5-8.0)
[2023-12-18] MEDS: Acetaminophen 325 MG TABLET 975 MG PO ×2 (07:05→23:47)
[2023-12-18] MEDS: Morphine Sulfate Immed Release 15 MG TABLET PO (07:08)
[2023-12-18 07:18] LABS: Appearance Urine Clear; Color Urine Yellow; Glucose Urine UA Negative (Negative); Leukocyte Esterase Urine Trace (Negative); Nitrite Urine Negative (Negative); PH 6.5 (5.0-9.0); UMIC TRIGGER UACC YES; Urine Blood Negative (Negative); Urine Ketones Negative (Negative); Urine Protein Trace mg/dL (Neg-Trace)
[2023-12-18 07:20] LABS: Bacteria Urine None Seen (None Seen); Hyaline Casts Urine 0-2 /LPF (0-2); RBC Urine 0-2 /HPF (0-2); Squamous Epithelial Cell Urine 0-2 /HPF (0-2); WBC Urine 0-5 /HPF (0-5)
--- NOTE | 2023-12-18 07:27 | PC.NURSE ---
pt arrives via EMS for complaints of left sided back pain, starting mid back and extending to his groin area. patient states he has been unable to move and has been having difficulty starting his urine stream, but states once he can get it started he can finish urinating. patient wears O2 at baseline at home, states he is usually able to take care of himself but the pain has been so bad that he has been unable to. patient medicated with Po medication per JUL, blood work completed, patient was able to provide urine sample for this RN. sent to lab. patient placed on continuous pulse ox, requesting to lay flat as it is more comfortable for him, awaiting CT scan at this time
[2023-12-18 07:28] LABS: Magnesium 1.9 mg/dL (1.6-2.6)
--- NOTE | 2023-12-18 07:32 | ED_ITS ---
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 Admits to lifting groceries however denies known trauma, injury or fall. Also reports associated urinary hesitancy and suprapubic pressure. Denies fever, chills, nausea/vomiting, hematuria/dysuria, testicular pain, incontinence/retention Related Data Home Medications ?Medication ?Instructions ?Recorded ?Confirmed atenolol 25 mg tablet 25 mg PO DAILY 06/19/20 08/17/23 aspirin 81 mg tablet,delayed 81 mg PO DAILY 11/19/20 08/17/23 release pantoprazole 20 mg tablet,delayed 20 mg PO DAILY@0630 11/19/20 08/17/23 release (Protonix) acetaminophen 325 mg tablet 650 mg PO Q6H PRN Pain (Scale 12/12/20 08/17/23 (Tylenol) Score 1-3) fluticasone propionate 50 1 spray intranasal DAILY PRN 02/12/21 08/17/23 mcg/actuation nasal Congestion spray,suspension oxycodone-acetaminophen 5 mg-325 1 tab PO QID PRN Pain (Scale Score 02/12/21 08/17/23 mg tablet 1-3) nebulizers 10/15/22 Oxygen Home Use 01/08/23 gabapentin 100 mg capsule 200 mg PO TID 04/10/23 08/17/23 albuterol sulfate 2.5 mg/3 mL 2.5 mg inhalation Q6H PRN for 08/17/23 08/17/23 (0.083 %) solution for nebulization dyspnea methyl salicylate-menthol topical 1 ea topical TID PRN Muscle Pain 08/17/23 08/17/23 ointment Previous Rx's ?Medication ?Instructions ?Recorded montelukast 10 mg tablet 10 mg PO DAILY 30 days #30 tabs 06/26/20 amlodipine 10 mg tablet (Norvasc) 10 mg PO DAILY #30 tabs 10/30/20 albuterol sulfate 90 mcg/actuation 2 puff inhalation QID PRN 08/13/23 aerosol inhaler (ProAir HFA) Shortness Of Breath #8.5 grams fluticasone fur. 100 mcg-umeclid 1 ea inhalation DAILY 30 days #60 08/13/23 62.5 mcg-vilant 25 mcg ea inhalat.powder (Trelegy Ellipta) doxycycline monohydrate 100 mg 100 mg PO Q12H #3 caps 08/21/23 capsule prednisone 20 mg tablet 20 mg PO DAILY #2 tabs 08/21/23 furosemide 40 mg tablet 40 mg PO DAILY #30 tabs 09/24/23 isosorbide mononitrate 60 mg 60 mg PO DAILY #90 tabs 12/14/23 tablet,extended release 24 hr Allergies Allergy/AdvReac Type Severity Reaction Status Date / Time ibuprofen Allergy Mild Gastrointestinal Verified 12/18/23 05:04 Upset Review of Systems 2 Review of Systems: Constitutional: No Fever, No Chills ENT/Mouth: No Ear Pain, No Nasal Congestion, No sore throat, No Rhinorrhea, No Swallowing Difficulty Cardiovascular: No Chest Pain, No SOB Respiratory: No Cough, No Sputum, No Wheezing Gastrointestinal: No Nausea, No Vomiting, No Diarrhea, No Constipation, +Abdominal pain Genitourinary: No Dysuria, No Urinary Frequency, No Hematuria, No Urinary Incontinence/retention, No Urgency, + Flank Pain Musculoskeletal: No joint pain, No Myalgias, No Joint Swelling Skin: No Skin Lesions, No rash Neuro: No Weakness, No Numbness, No Paresthesias Yes all other systems are reviewed and are negative Constitutional: Constitutional: Reports as per [facility] Past Medical History Attestation statement: The following information was validated with the patient. Source: old records reviewed Medical History Aortic stenosis Bacteriuria Congestive heart disease Chronic lung disease Chronic respiratory failure Pre-op chest exam Inferior MD Pneumonitis Pulmonary nodules BPH (benign prostatic hyperplasia) COPD (chronic obstructive pulmonary disease) Pneumonia HTN (hypertension) Surgical History S/P cardiac catheterization History of carpal tunnel surgery of right wrist Hx of cardiac cath Family History Family History Mother CAD (coronary artery disease) Heart attack Father HTN (hypertension) Brother H/O heart bypass surgery Sister Afib Social History Social History Household Members: Spouse Housing: House Do you presently have visiting nurse or other home services: Yes Alcohol intake: never Patient Tobacco Use Status: Former Tobacco user Tobacco use type: Cigarette Smoked in Last 30 Days: No Use of substances other than those prescribed or required for medical reasons: No Advance Directives: Yes Advance Directives on File: Yes Advance Directives Date on File: 08/18/23 Do you have a plan to hurt others: No Plan service: No Current occupational status: retired Physical Exam ED Vital Signs: Vital Signs - 24 hr 12/18/23 05:02 12/18/23 07:30 12/18/23 11:45 Temperature 98.8 F Pulse Rate 98 98 Respiratory Rate 19 19 Pulse Oximetry 95 95 Oxygen Delivery Method Nasal Cannula 12/18/23 14:15 Temperature Pulse Rate 98 Respiratory Rate Pulse Oximetry 95 Oxygen Delivery Method BMI result Body Mass Index 35.5 Const General: cooperative, healthy appearing and no acute distress Orientation/consciousness: patient oriented x3 Limitations: no limitations HENMT Head: Yes normal to inspection and Yes atraumatic Ears: hearing grossly normal bilaterally General nose exam: Normal external nose present Face and sinus: Yes normal facial exam Eyes General: appearance normal, both eyes and all related structures EOM: EOMs intact bilaterally Neck Neck: Yes normal visual inspection and Yes no meningeal signs Resp Effort & Inspection: normal respiratory effort and no respiratory distress Auscultation: rhonchi lower bilaterally Cardio Rate: regular rate Heart sounds: S1 normal heart sound present and S2 normal heart sound present Peripheral pulses: Peripheral pulses 2+ throughout GI Inspection: Yes normal to inspection Palpation (GI): Soft to palpation, Tenderness to palpation present (GI) in the LLQ; with no rebound tenderness, no guarding and not rigid General: Yes CVA tenderness on the left Scrotum: scrotum normal Testes: Testes normal Back/Spine/Pelvis Other: No midline cervical/thoracic/lumbar spinous tenderness/step-off or deformity Back: CVA tenderness Skin Rashes: no rashes Wounds: no wounds Neuro Other: Strength intact throughout. No saddle anesthesia. Sensation intact to light touch. Neurovascular intact distally General: patient oriented x3, tone normal and no meningeal signs Cranial nerves: Yes CN's II-XII intact bilaterally Gait exam (Neuro): Normal gait present Extrem Other: RLE edema (chronic) Course Course Course Narrative: -no leukocytosis. Initial troponin 22 > will obtain 3 hour repeat. -UA not ninfected -1008--troponin without significant rise, mi unlikely XR chest 1V IMPRESSION: 1. Chronic appearing interstitial lung markings with mild bronchial thickening which may reflect infectious/inflammatory etiology. 2. Slight bibasilar atelectasis. 3. Bilateral low lung volumes. CT abdomen pelvis wo IV con IMPRESSION: 1. No acute process of the abdomen or pelvis identified. 2. Liver is mildly enlarged. Redemonstration of multiple bilateral subcentimeter hepatic hypodense foci too small to characterize though statistically representing cysts. 3. Status post cholecystectomy with postsurgical dilatation of the common bile duct. 4. Bilateral renal hypodense foci are noted demonstrating fluid attenuation, statistically representing cysts, not requiring follow-up. Redemonstrated mildly complex focus in the lateral aspect of the right renal interpolar/lower pole region containing calcifications slightly exophytic measuring 2.2 cm, stable. 5. Small to moderate hiatal hernia. 6. Colonic diverticulosis without acute diverticulitis. 7. Small fat filled umbilical hernia. 8. Osteopenia. Postsurgical changes status post posterior spinal fusion of L4 and S1, spinal hardware grossly intact. Grade 1 anterolisthesis of L5 and S1. Grade 1 retrolisthesis of L2 on L3 and to a lesser extent L3 on L4. Bilateral hip arthroplasty, grossly intact with streak artifact at this level. > on re-evaluation patient reports symptomatic improvement after medications given in the ED. Ambulates at baseline with cane, will try ambulation trial in the ED -ambulation trial attempted however patient with significant pain upon sitting up > spasming appreciated with movement. Will give Lidoderm patch/Flexeril and obtain PT/case management eval. Physician observation initiated at 10:26 -1222--physical therapy evaluated patient and recommended short-term rehab. pending case management placement -1630--ED care transferred to ANIL Banuelos pending case management eval Medications Administered Discontinued Medications Generic Name Dose Route Start Last Admin Trade Name Terry PRN Reason Stop Dose Admin Acetaminophen 975 mg 12/18/23 06:59 12/18/23 07:05 Acetaminophen 325 Mg Tablet PO 12/18/23 07:00 975 mg ONCE ONE Administration Cyclobenzaprine HCl 10 mg 12/18/23 10:23 12/18/23 10:34 Cyclobenzaprine Hcl 10 Mg Tablet PO 12/18/23 10:24 10 mg ONCE ONE Administration Lidocaine 1 patch 12/18/23 10:24 12/18/23 10:34 Lidocaine 4 % Patch Adh..Patch TRANSDERMA 12/18/23 10:25 1 patch ONCE ONE Administration Protocol Morphine Sulfate 15 mg 12/18/23 06:59 12/18/23 07:08 Morphine Sulfate Immed Release 15 Mg Tablet PO 12/18/23 07:00 15 mg ONCE ONE Administration Medical Decision Making Medical Decision Making [facility] Narrative: 83-year-old male with past medical history of COPD on 2 L NC, MD, pneumonitis, BPH, pneumonia, HTN, scheduled for valve replacement on 12/21/2023 [facility] with residual weakness to left side, presenting to the ED via EMS complaining of left flank pain radiating to left lower quadrant/LLE x2 days. On exam vital signs stable, NAD, nontoxic appearing, left CVAT noted, abdomen is soft with left lower quadrant tenderness, no testicular tenderness. No midline spinous tenderness or red flag symptoms. Concern for MSK pain/strain vs sciatica vs renal stone/pyelo vs UTI vs diverticulitis. Lower suspicion for testicular torsion, cauda equina/cord compression or appendicitis Plan: EKG, labs, UA, CXR, CT AP, pain control, re-evaluate Please refer to course for remaining clinical decision making, interpretation of labs/imaging results, and discussions with consultants and/or family members. Differential Diagnosis Differential Diagnoses: The differential diagnosis associated with the presentation includes As above Admission/Observation Consideration of admission/observation: Escalation of care including admission/observation considered Lab Data [facility] Lab Attestation statement: I reviewed the patient's lab results. 12/18/23 05:49 12/18/23 05:49 Labs: Lab Results 12/18/23 12/18/23 12/18/23 Range/Units 05:49 05:50 07:11 WBC 8.3 (4.8-10.8) X10*3/uL RBC 4.32 L (4.60-5.80) X10*6/uL Hgb 12.6 L (14.0-18.0) g/dl Hct 38.6 L (42.0-52.0) % MCV 89.4 (80.0-98.0) fL MCH 29.2 (27.0-33.0) pg MCHC 32.6 (31.0-36.0) g/dl RDW 12.6 (11.0-16.0) % Plt Count 214 (160-400) X10*3/uL MPV 9.3 L (9.4-12.4) fL Immature Gran % (Auto) 0.2 (0.0-0.4) % Neut % (Auto) 64.7 (45-73) % Lymph % (Auto) 15.3 L (20-40) % Delta % (Auto) 16.8 H (2-11) % Eos % (Auto) 1.9 (0-4) % Baso % (Auto) 1.1 (0-2) % Lymph # (Auto) 1.3 (1.2-4.9) X10*3/uL Delta # (Auto) 1.4 H (0.1-1.2) X10*3/uL Eos # (Auto) 0.2 (0.0-0.4) X10*3/uL Baso # (Auto) 0.1 (0.0-0.2) X10*3/uL Abs Immat Gran (auto) 0.02 (0.00-0.03) X10*3/uL Absolute Neuts (auto) 5.3 (2.0-8.3) x10*3/uL Absolute Nucleated RBC 0.000 (0.0-0.012) X10*3/uL Nucleated RBC % (auto) 0.0 (0.0-0.2) /100WBC Sodium 144 (135-145) mmol/L Potassium 3.5 (3.3-5.1) mmol/L Chloride 106 (96-108) mmol/L Carbon Dioxide 28 (22-29) mmol/L Anion Gap 14 (12-20) BUN 18 H (9-16) mg/dL Creatinine 1.09 (0.5-1.4) mg/dL Estim Creat Clear Calc 51.1 Estimated GFR > 60 Random Glucose 123 H (60-115) mg/dL Calcium 9.5 (8.4-10.2) mg/dL Magnesium 1.9 (1.6-2.6) mg/dL Total Bilirubin 0.6 (0.0-1.0) mg/dL AST 15 (5-37) U/L ALT 15 (0-40) U/L Alkaline Phosphatase 79 (39-117) U/L Troponin I High Sens 22.0 D (<3.5-35.0) ng/L B-Natriuretic Peptide 136 H (<100) pg/mL Total Protein 7.1 (6.5-8.0) g/dL Albumin 3.8 (3.5-5.0) g/dL Urine Color Yellow Urine Appearance Clear Urine pH 6.5 (5.0-9.0) Ur Specific [place] 1.020 (1.005-1.025) Urine Protein Trace (Neg-Trace) mg/dL Urine Glucose (UA) Negative (Negative) mg/dL Urine Ketones Negative (Negative) mg/dL Urine Blood Negative (Negative) Urine Nitrite Negative (Negative) Ur Leukocyte Esterase Trace H (Negative) Urine RBC 0-2 (0-2) /HPF Urine WBC 0-5 (0-5) /HPF Ur Squamous Epith Cells 0-2 (0-2) /HPF Urine Bacteria None Seen (None Seen) Hyaline Casts 0-2 (0-2) /LPF 12/18/23 Range/Units 08:55 WBC (4.8-10.8) X10*3/uL RBC (4.60-5.80) X10*6/uL Hgb (14.0-18.0) g/dl Hct (42.0-52.0) % MCV (80.0-98.0) fL MCH (27.0-33.0) pg MCHC (31.0-36.0) g/dl RDW (11.0-16.0) % Plt Count (160-400) X10*3/uL MPV (9.4-12.4) fL Immature Gran % (Auto) (0.0-0.4) % Neut % (Auto) (45-73) % Lymph % (Auto) (20-40) % Delta % (Auto) (2-11) % Eos % (Auto) (0-4) % Baso % (Auto) (0-2) % Lymph # (Auto) (1.2-4.9) X10*3/uL Delta # (Auto) (0.1-1.2) X10*3/uL Eos # (Auto) (0.0-0.4) X10*3/uL Baso # (Auto) (0.0-0.2) X10*3/uL Abs Immat Gran (auto) (0.00-0.03) X10*3/uL Absolute Neuts (auto) (2.0-8.3) x10*3/uL Absolute Nucleated RBC (0.0-0.012) X10*3/uL Nucleated RBC % (auto) (0.0-0.2) /100WBC Sodium (135-145) mmol/L Potassium (3.3-5.1) mmol/L Chloride (96-108) mmol/L Carbon Dioxide (22-29) mmol/L Anion Gap (12-20) BUN (9-16) mg/dL Creatinine (0.5-1.4) mg/dL Estim Creat Clear Calc Estimated GFR Random Glucose (60-115) mg/dL Calcium (8.4-10.2) mg/dL Magnesium (1.6-2.6) mg/dL Total Bilirubin (0.0-1.0) mg/dL AST (5-37) U/L ALT (0-40) U/L Alkaline Phosphatase (39-117) U/L Troponin I High Sens 30.6 (<3.5-35.0) ng/L B-Natriuretic Peptide (<100) pg/mL Total Protein (6.5-8.0) g/dL Albumin (3.5-5.0) g/dL Urine Color Urine Appearance Urine pH (5.0-9.0) Ur Specific [place] (1.005-1.025) Urine Protein (Neg-Trace) mg/dL Urine Glucose (UA) (Negative) mg/dL Urine Ketones (Negative) mg/dL Urine Blood (Negative) Urine Nitrite (Negative) Ur Leukocyte Esterase (Negative) Urine RBC (0-2) /HPF Urine WBC (0-5) /HPF Ur Squamous Epith Cells (0-2) /HPF Urine Bacteria (None Seen) Hyaline Casts (0-2) /LPF Independent Interpretation I performed an independent interpretation of an: EKG (My interpretation EKG sinus rhythm with premature atrial complexes rate of 69. QTC 467. No STEMI.), Plain X-Ray and CT Scan Radiology Impression Discussion of test interpretation with radiology: I have reviewed the radiologist's reading. Independent Historian Clinical information obtained from an independent historian. History obtained from or confirmed by: EMS External Record Review External record reviewed: Inpatient record, Office record, Outpatient record, Prior outpatient labs, Prior outpatient radiology, Primary care record and Outside ED record Tests considered The following testing was considered but not selected: As above Prescription Management I considered prescription management with: Pain Medication Chronic Conditions Patient?s care impacted by: Other (COPD, aortic stenosis) Discharge Plan Discharge Clinical Impression: Left flank pain, Left groin pain Patient Disposition: Still a Patient Prescriptions: No Action furosemide 40 mg tablet 40 mg PO DAILY Qty: 30 0RF Protocol: Hold for SBP< HOLD for SBP < : 90 Rx Instructions: KEEP YOUR APPT on 10/06/23 at 10:00, [facility] Cardiovascular Office w Fatuma Sam LUMBER [employer]AIGHT[employer]-C isosorbide mononitrate 60 mg tablet extended release 24 hr 60 mg PO DAILY Qty: 90 3RF atenolol 25 mg Tablet 25 mg PO DAILY amlodipine [Norvasc] 10 mg tablet 10 mg PO DAILY Qty: 30 0RF methyl salicylate-menthol Ointment 1 ea TOPICAL TID PRN (Reason: Muscle Pain) albuterol sulfate 2.5 mg /3 mL (0.083 %) solution for nebulization 2.5 mg inhalation Q6H PRN (Reason: for dyspnea) prednisone 20 mg Tablet 20 mg PO DAILY Qty: 2 0RF Rx Instructions: next dose 08/21 doxycycline monohydrate 100 mg Capsule 100 mg PO Q12H Qty: 3 0RF montelukast 10 mg tablet 10 mg PO DAILY 30 Days Qty: 30 11RF aspirin 81 mg tablet,delayed release (DR/EC) 81 mg PO DAILY pantoprazole [Protonix] 20 mg tablet,delayed release (DR/EC) 20 mg PO DAILY@0630 gabapentin 100 mg capsule 200 mg PO TID acetaminophen [Tylenol] 325 mg tablet 650 mg PO Q6H PRN (Reason: Pain (Scale Score 1-3)) oxycodone-acetaminophen 5-325 mg tablet 1 tab PO QID PRN (Reason: Pain (Scale Score 1-3)) fluticasone propionate 50 mcg/actuation spray,suspension 1 spray intranasal DAILY PRN (Reason: Congestion) (DME) nebulizers Misc See Rx Instructions .Route Rx Instructions: As directed (DME) Oxygen Home Use Kit See Rx Instructions .Route Rx Instructions: As directed Trelegy Ellipta 100-62.5-25 mcg blister with device 1 ea inhalation DAILY 30 Days Qty: 60 11RF albuterol sulfate [ProAir HFA] 90 mcg/actuation HFA aerosol inhaler 2 puff INHALATION QID PRN (Reason: Shortness Of Breath) Qty: 8.5 11RF Print Language: Bhutanese
[2023-12-18 07:38] LABS: B Type Natriuretic Peptide 136 pg/mL (<100)
[2023-12-18 09:26] LABS: Troponin-I High Sensitivity 30.6 ng/L (<3.5-35.0)
[2023-12-18] MEDS: Cyclobenzaprine HCl 10 MG TABLET PO ×2 (10:34→18:38)
[2023-12-18] MEDS: Lidocaine 4 % Patch ADH..PATCH 1 PATCH TRANSDERMA (10:34)
--- NOTE | 2023-12-18 11:01 | PC.NURSE ---
patient endorsing difficulty using urinal, condom catheter placed externally on patient for comfort, medicated per MAR.
[2023-12-18 11:09] LABS: IDNOW Serial# 152EDE1D
--- NOTE | 2023-12-18 16:16 | MHC.CM.ED ---
Received case management consult from Pratima MA. Patient came to the ER d/t leg pain. Physical therapy eval completed. Short term rehab is recommended. Patient has been to [facility] in the past. Referral broadcasted in [facility] at this time to all facilities that are contracted with patient's insurance within 15 miles. [facility] is reviewing but wants to know if patient will still have cardiac valve surgery on Wednesday 12/20. [facility], [facility], [facility], [facility], [facility], and [facility]. Will need insurance auth from [employer]. Met with patient in regards to discharge planning. Patient lives with his and [id number]. Has [employer] for oxygen at home. Patient is concerned if surgery will still proceed on Thursday. T/W called Dr Recinos's office at [facility]. [facility] has requested provider call CM to discuss if surgery will proceed on Thursday. Continue to monitor for d/c needs.
--- NOTE | 2023-12-18 18:44 | MHC.CM.ED ---
Addendum entered by Laly Montalvo 12/18/23 23:03: Pt will be admitted and then transferred to [facility] for his TAVR surgery. Awaiting hospitalist. Addendum entered by Laly Montalvo 12/18/23 22:41: Dr. Trejo spoke to provider at [facility] and they are requesting patient be admitted to [facility] and to be transferred to them on Thursday. Vin MA will speak with hospitalist. CM has not responded to facilities that have offered a bed. Pt choice is [facility], however, would rather have his TAVR surgery on Thursday. Addendum entered by Laly Montalvo 12/18/23 22:37: CM met with daughter/HCP Joann at the bedside. Discussing plan of care with concerns about patient having TAVR surgery on Thursday at [facility] and missing it if he goes to [facility], but concerns about his ability to go home and safely ambulate at home. Pt is requesting to speak with Dr. Matta, his director adult regarding having surgery on Thursday or going to [facility]. 6 facilities have offered him a bed. Provider aware. Will contact Dr Trejo regarding best plan of care for this patient. Addendum entered by Laly Montalvo 12/18/23 18:55: Call HCP Tonia (sister) [phone]. Message left to return call. Original Note: CM met with patient. CM did not receive a call back from [facility]. Pt scheduled for surgery on Thursday for valve replacement. PT is recommending [facility]. [facility] cannot offer a bed. Pt has HNE. Will be here over the weekend waiting for auth. Pt would like to have his surgery. CM spoke with provider regarding PT re-consult to determine if patient can safely d/c to home this weekend and have his surgery on Thursday. CM spoke with his , Nirali, about the plan of care. Nirali has some dementia. Attempted to call HCP Joann, however the number listed is incorrect. Pt lives with his sister and . Has [employer]PER[employer]OR weekly through [employer] for personal care. He uses a cane. [facility] Several facilities have offered a [facility] bed. Pt would like to go home.
--- NOTE | 2023-12-18 19:38 | PHA.MEDREC ---
Pharmacy Consult ? Medication Reconciliation Pharmacy has completed the medication reconciliation. Confirmed medications with patient.
[2023-12-18 20:46] LABS: COVID-19 Test Negative (Negative)
--- NOTE | 2023-12-18 22:04 | MHC.EDTECH ---
This tech provided patient with gingerale.
--- NOTE | 2023-12-18 22:36 | PM.IMHP ---
History of Present Illness Date of Service: 12/18/23 Attending physician on admission: Pippa Tabares Chief Complaint: Lower back pain Pt is an 83-year-old male with a PMH significant for?CAD w/hx of NSTEMI, chronic hypoxemic respiratory failure on 2.5 L home O2 at baseline, HFpEF, severe aortic stenosis scheduled for valve replacement on 12/21/2023, HTN, BPH, and hx of polio with chronic LUE and LLE weakness who presents to the ED with?left flank pain radiating to LLE and LLQ x2 days. States the pain also sometimes feels like it wraps around his lower abdomen. Pt admits to lifting groceries and other light objects recently, but no falls or known trauma to the area. No other acute medical complaints. No chest pain/pressure or palpitations. Denies fever, chills, N/V/D. No shortness of breath or difficulty breathing. In the ED pt was tachycardic up to 98 and slightly hypertensive at 140/75. Labs were significant for mildly elevated BNP of 136, otherwise grossly unremarkable and baseline for patient. No leukocytosis. Stable H&H. No significant electrolyte abnormalities. Renal function baseline. Hepatic function WNL. Initial troponin 22.0 with repeat flat at 30.6. CXR showed chronic appearing interstitial lung markings. CT of abdomen and pelvis?with no acute process, but with numerous chronic findings. EKG demonstrated sinus rhythm with PACs but no evidence of significant ST elevations or depressions. Pt was treated with acetaminophen, morphine, cyclobenzaprine, and lidocaine patch to good effect. Was then seen and evaluated by Physical therapy in the ED where they recommended short-term rehab. However, patient is scheduled for TAVR on 12/21/2023 for severe aortic stenosis, a procedure he has been waiting for for several months and would have to reschedule again if in STR. ED clinician discussed with cardiology who contacted [facility] himself and arranged for transfer over the weekend so pt will not miss his TAVR procedure. Pt will be admitted to the hospital under observation for treatement of intractable lower back pain while awaiting transfer to [facility] for TAVR. Review of Systems Review of Systems: Lower back pain radiating to LLE and LLQ Pt otherwise denies any acute medical complaints No chest pain/pressure or palpitations Denies SOB or RAM No F/C/N/V/D Denies saddle anaesthesia [facility] Medical History Aortic stenosis Bacteriuria Congestive heart disease Chronic lung disease Chronic respiratory failure Pre-op chest exam Inferior AL Pneumonitis Pulmonary nodules BPH (benign prostatic hyperplasia) COPD (chronic obstructive pulmonary disease) Pneumonia HTN (hypertension) Family History Mother CAD (coronary artery disease) Heart attack Father HTN (hypertension) Brother H/O heart bypass surgery Sister Afib Surgical History S/P cardiac catheterization History of carpal tunnel surgery of right wrist Hx of cardiac cath Social History Household Members: Spouse Housing: House Do you presently have visiting nurse or other home services: Yes Alcohol intake: never Patient Tobacco Use Status: Former Tobacco user Tobacco use type: Cigarette Smoked in Last 30 Days: No Use of substances other than those prescribed or required for medical reasons: No Advance Directives: Yes Advance Directives on File: Yes Advance Directives Date on File: 08/18/23 Do you have a plan to hurt others: No Plan Nutrition Risks: No Nutritional Risk service: No Current occupational status: retired Meds Allergies Allergy/AdvReac Type Severity Reaction Status Date / Time ibuprofen Allergy Mild Gastrointestinal Verified 12/18/23 05:04 Upset Active Medications: Current Medications Albuterol Sulfate (Albuterol Sulfate (0.083%) 2.5 Mg/3 Ml Vial.Neb) 2.5 mg INHALE Q6H PRN PRN Reason: for dyspnea Albuterol Sulfate (Albuterol Sulfate 90 Mcg 8 Gm Inhaler) 2 puff INHALE QID PRN PRN Reason: Shortness of Breath Amlodipine Besylate (Amlodipine Besylate 5 Mg Tablet) 5 mg PO DAILY KRISTIN; Protocol Aspirin (Aspirin Enteric Coated 81 Mg Tablet.Dr) 81 mg PO DAILY KRISTIN Atenolol (Atenolol 25 Mg Tablet) 25 mg PO DAILY KRISTIN; Protocol Fluticasone Propionate (Fluticasone Propionate Nasal 16 Gm [place]) 1 spray NOSTRIL-B DAILY PRN PRN Reason: Congestion Fluticasone/Umeclidinium/Vilanterol (Fluticasone/Umeclidinium/Vilanterol 100/62.5/25 Blst.W.Dev) puff INHALE DAILY [facility] Furosemide (Furosemide 40 Mg Tablet) 40 mg PO DAILY KRISTIN; Protocol Gabapentin (Gabapentin 100 Mg Capsule) 200 mg PO TID [facility] Isosorbide Mononitrate (Isosorbide Mononitrate 60 Mg Tab.Er.24h) 60 mg PO DAILY KRISTIN; Protocol Montelukast Sodium (Montelukast Sodium 10 Mg Tablet) 10 mg PO DAILY [facility] Non-Formulary Medication (Oxycodone-Acetaminophen) 1 tab PO QID PRN PRN Reason: Pain, Moderate(Pain Scale 4-6) Non-Formulary Medication (Pantoprazole [Protonix]) 20 mg PO DAILY@0630 [facility] Home Medications ?Medication ?Instructions ?Recorded ?Confirmed ?Last Taken ?Type atenolol 25 mg tablet 25 mg PO DAILY 06/19/20 12/18/23 12/17/23 History aspirin 81 mg tablet,delayed 81 mg PO DAILY 11/19/20 12/18/23 12/17/23 History release pantoprazole 20 mg tablet,delayed 20 mg PO DAILY@0630 11/19/20 12/18/23 12/17/23 History release (Protonix) fluticasone propionate 50 1 spray intranasal DAILY PRN 02/12/21 12/18/23 12/17/23 History mcg/actuation nasal Congestion spray,suspension oxycodone-acetaminophen 5 mg-325 1 tab PO QID PRN Pain (Scale Score 02/12/21 12/18/23 12/17/23 History mg tablet 1-3) nebulizers 10/15/22 Unknown History Oxygen Home Use 01/08/23 Unknown History gabapentin 100 mg capsule 200 mg PO TID 04/10/23 12/18/23 12/17/23 History albuterol sulfate 2.5 mg/3 mL 2.5 mg inhalation Q6H PRN for 08/17/23 12/18/23 12/17/23 History (0.083 %) solution for nebulization dyspnea albuterol sulfate 90 mcg/actuation 2 puff inhalation QID PRN SOB 12/18/23 12/18/23 12/17/23 History aerosol inhaler amlodipine 5 mg tablet 5 mg PO DAILY 12/18/23 12/18/23 12/17/23 History Physical Exam Vital Signs and Narrative: Vital Signs: Last Vital Signs Temp 98.6 F 12/18/23 22:00 Pulse 75 12/18/23 22:00 Resp 18 12/18/23 22:00 BP 140/75 H 12/18/23 22:00 Pulse Ox 96 12/18/23 22:00 O2 Del Method Nasal Cannula 12/18/23 22:00 O2 Flow Rate 96 12/18/23 22:00 Oxygen Flow Rate 2 12/18/23 05:02 BMI result Body Mass Index 35.5 General: AOx3, no acute distress Resp: CTA bilaterally CVS: S1, S2, RRR GI: +BS, no distention, mild tenderness to palpation of LLQ. No guarding or rebound tenderness Skin: Warm, dry Neuro: Cranial nerves II-XII grossly intact bilaterally. Motor grossly intact bilaterally Extremities: No edema Psych: Appropriate affect Results Labs 12/18/23 05:49 12/18/23 05:49 Labs: Laboratory Results - last 24 hr 12/18/23 12/18/23 12/18/23 05:49 05:50 07:11 MCV 89.4 MCH 29.2 MCHC 32.6 RDW 12.6 Plt Count 214 MPV 9.3 L Immature Gran % (Auto) 0.2 Neut % (Auto) 64.7 Lymph % (Auto) 15.3 L [place] % (Auto) 16.8 H Eos % (Auto) 1.9 Baso % (Auto) 1.1 Lymph # (Auto) 1.3 [place] # (Auto) 1.4 H Eos # (Auto) 0.2 Baso # (Auto) 0.1 Abs Immat Gran (auto) 0.02 Absolute Neuts (auto) 5.3 Absolute Nucleated RBC 0.000 Nucleated RBC % (auto) 0.0 Anion Gap 14 Estim Creat Clear Calc 51.1 Estimated GFR > 60 Random Glucose 123 H Calcium 9.5 Magnesium 1.9 Total Bilirubin 0.6 AST 15 ALT 15 Alkaline Phosphatase 79 Troponin I High Sens 22.0 D B-Natriuretic Peptide 136 H Total Protein 7.1 Albumin 3.8 Urine Color Yellow Urine Appearance Clear Urine pH 6.5 Ur Specific [place] 1.020 Urine Protein Trace Urine Glucose (UA) Negative Urine Ketones Negative Urine Blood Negative Urine Nitrite Negative Ur Leukocyte Esterase Trace H Urine RBC 0-2 Urine WBC 0-5 Ur Squamous Epith Cells 0-2 Urine Bacteria None Seen Hyaline Casts 0-2 COVID-19 (HECTOR) COVID-19 Clin Com 12/18/23 12/18/23 08:55 10:41 MCV MCH MCHC RDW Plt Count MPV Immature Gran % (Auto) Neut % (Auto) Lymph % (Auto) [place] % (Auto) Eos % (Auto) Baso % (Auto) Lymph # (Auto) [place] # (Auto) Eos # (Auto) Baso # (Auto) Abs Immat Gran (auto) Absolute Neuts (auto) Absolute Nucleated RBC Nucleated RBC % (auto) Anion Gap Estim Creat Clear Calc Estimated GFR Random Glucose Calcium Magnesium Total Bilirubin AST ALT Alkaline Phosphatase Troponin I High Sens 30.6 B-Natriuretic Peptide Total Protein Albumin Urine Color Urine Appearance Urine pH Ur Specific [place] Urine Protein Urine Glucose (UA) Urine Ketones Urine Blood Urine Nitrite Ur Leukocyte Esterase Urine RBC Urine WBC Ur Squamous Epith Cells Urine Bacteria Hyaline Casts COVID-19 (HECTOR) Negative COVID-19 Clin Com See Note Imaging Radiologist's Impressions: Impressions Chest X-Ray 12/18/23 08:23 IMPRESSION: 1. Chronic appearing interstitial lung markings with mild bronchial thickening which may reflect infectious/inflammatory etiology. 2. Slight bibasilar atelectasis. 3. Bilateral low lung volumes. Abdomen/Pelvis CT 12/18/23 08:38 IMPRESSION: 1. No acute process of the abdomen or pelvis identified. 2. Liver is mildly enlarged. Redemonstration of multiple bilateral subcentimeter hepatic hypodense foci too small to characterize though statistically representing cysts. 3. Status post cholecystectomy with postsurgical dilatation of the common bile duct. 4. Bilateral renal hypodense foci are noted demonstrating fluid attenuation, statistically representing cysts, not requiring follow-up. Redemonstrated mildly complex focus in the lateral aspect of the right renal interpolar/lower pole region containing calcifications slightly exophytic measuring 2.2 cm, stable. 5. Small to moderate hiatal hernia. 6. Colonic diverticulosis without acute diverticulitis. 7. Small fat filled umbilical hernia. 8. Osteopenia. Postsurgical changes status post posterior spinal fusion of L4 and S1, spinal hardware grossly intact. Grade 1 anterolisthesis of L5 and S1. Grade 1 retrolisthesis of L2 on L3 and to a lesser extent L3 on L4. Bilateral hip arthroplasty, grossly intact with streak artifact at this level. Assessment and Plan (1) Lower back pain: Status: Acute Plan Pt is an 83-year-old male with a PMH significant for?CAD w/hx of NSTEMI, chronic hypoxemic respiratory failure on 2.5 L home O2 at baseline, HFpEF, severe aortic stenosis scheduled for valve replacement on 12/21/2023, HTN, BPH, and hx of polio with chronic LUE and LLE weakness who presents to the ED with?left flank pain radiating to LLE and LLQ x2 days. Pt will be admitted to the hospital under observation for treatment of intractable lower back pain while awaiting transfer to [facility] for TAVR. Lower back pain Patient with left lower back pain radiating to LLE and LLQ x2 days Analgesics for pain management: scheduled Tylenol, oxy 5mg prn Evaluated by PT, recommend STR Aortic stenosis Scheduled for TAVR on 12/20 at [facility] Cardiology has contacted [facility], will transfer over the weekend HFrEF Not in acute exacerbation Continue atenolol, home Lasix COPD Not in acute exacerbation Continue home inhalers HTN Continue amlodipine CAD Continue aspirin, isosorbide mononitrate BPH Continue tamsulosin Full Code Attending:?Dr. Cerda DVT Prophylaxis: Lovenox Pt will be admitted to the hospital under observation for treatment and further observation of intractable lower back pain while awaiting transfer to [facility] for TAVR. Quality Stroke Does the patient have a stroke diagnosis?: No VTE Prior VTE?: No VTE Risk Level:: Medical - moderate - high VTE Device Contraindication: Treatment Not Indicated VTE Drug Contraindication: N/A - Med Ordered
[2023-12-18] MEDS: Gabapentin 100 MG CAPSULE 200 MG PO (23:48)
--- NOTE | 2023-12-18 23:59 | PC.NURSE ---
tex[place] cath placed; rpt given to overflow RN.
[2023-12-19] MEDS: Acetaminophen 325 MG TABLET 975 MG PO ×4 (05:24→23:22)
[2023-12-19] MEDS: Omeprazole 20 MG CAPSULE.DR PO (05:24)
[2023-12-19] MEDS: oxyCODONE HCl Immed Release 5 MG TABLET PO ×2 (05:27→18:21)
[2023-12-19 05:47] VITALS: BP 132/54; PULSE 67; RESP 18; TEMP 37.1; O2SAT 96
--- NOTE | 2023-12-19 06:34 | PC.NURSE ---
Pt AOx3, able to make needs known. He is on 2L O2 via nc. Pt medicated for pain, see MAR for administration. Tx catheter patent, draining CYU. Call fernando within reach.
[2023-12-19] MEDS: Enoxaparin Sodium 40 MG/0.4 ML SYRINGE SUBCUT (08:22)
[2023-12-19] MEDS: Lidocaine 4 % Patch ADH..PATCH 1 PATCH TRANSDERMA (08:22)
[2023-12-19] MEDS: Cyclobenzaprine HCl 10 MG TABLET PO ×2 (08:22→17:18)
[2023-12-19 08:23] VITALS: BP 128/75; PULSE 74
[2023-12-19] MEDS: Gabapentin 100 MG CAPSULE 200 MG PO ×3 (08:23→21:28)
[2023-12-19] MEDS: atenoloL 25 MG TABLET PO (08:23)
[2023-12-19] MEDS: amLODIPine Besylate 5 MG TABLET PO (08:23)
[2023-12-19] MEDS: Furosemide 40 MG TABLET PO (08:23)
[2023-12-19] MEDS: Aspirin Enteric Coated 81 MG TABLET.DR PO (08:23)
[2023-12-19 10:26] VITALS: BP 128/75
[2023-12-19] MEDS: Isosorbide Mononitrate 60 MG TAB.ER.24H PO (10:26)
--- NOTE | 2023-12-19 10:42 | PC.NURSE ---
Patient a x 3, calm resting in bed. Able to make needs known. Complaining of 8/10 pain to the L flank. MD notified and came to beside to assess patient. Per MD, medicate patient and get him up to recliner. Patient was able to stand and pivot over to recliner with 2 assist. Pain medicaitons given and awaiting orders for additional medications. Patient now resting comfortably in recliner. Call fernando within reach and all other needs met at this time.
[2023-12-19] MEDS: predniSONE 20 MG TABLET 40 MG PO (11:06)
[2023-12-19] MEDS: Fluticasone/Umeclidinium/Vilanterol 100/62.5/25 BLST.W.DEV 1 PUFF INHALE (11:56)
[2023-12-19 11:58] VITALS: PULSE 71; RESP 20; O2SAT 96
--- NOTE | 2023-12-19 13:10 | PM.CNCAR ---
History of Present Illness History of Present Illness Date of Service: 12/19/23 Chief complaint: Intractable lower back pain Narrative: This is a cardiology consultation regarding aortic stenosis. Patient has a history of severe aortic stenosis. Apparently, he is scheduled to go for TAVR at [facility] Thursday. However, he comes to the hospital with severe low back pain and inability to walk. In that context, he has been admitted for further care. Patient himself does not have any overt cardiac symptoms during this admission although he is just resting. Per outpatient notes, he has fatigue and shortness of breath. Review of Systems Review of Systems: Yes all other systems are reviewed and are negative Constitutional: Constitutional: Reports as per HPI and Reports no additional constitutional complaints Eyes: Eyes: Reports as per HPI and Denies no additional eye complaints ENT: Denies system reviewed and no additional complaints, except as documented and Reports as per HPI Cardiovascular: Cardiovascular: Reports as per HPI, Reports no additional cardiovascular complaints, Denies acrocyanosis, Denies cool extremities, Denies chest pain, Denies leg edema, Denies lightheadedness, Denies palpitations and Denies dyspnea Respiratory: Respiratory: Reports as per HPI, Denies no additional respiratory complaints and Denies dyspnea Gastrointestinal: Gastrointestinal: Reports as per HPI and Denies no additional gastrointestinal complaints Genitourinary: Genitourinary: Reports no additional male genitourinary complaints and Reports as per HPI Musculoskeletal: Musculoskeletal: Reports no additional musculoskeletal complaints and Reports as per HPI Integumentary/Breasts: Skin/Breast: Reports system reviewed and no additional complaints, except as docu Neurologic: Reports system reviewed and no additional complaints, except as documented and Reports as per HPI Psychiatric: Psychiatric: Reports no additional psychiatric complaints and Reports as per HPI Endocrine: Endocrine: Reports no additional endocrine complaints, Reports as per HPI and Denies palpitations Hematologic/Lymphatic: Hematologic/Lymphatic: Reports no additional hematologic/lymphatic complaints and Reports as per HPI Allergic/Immunologic: Allergic/Immunologic: Reports no additional allergic/immunologic complaints and Reports as per HPI [facility] Past Medical History Medical History Aortic stenosis Bacteriuria Congestive heart disease Chronic lung disease Chronic respiratory failure Pre-op chest exam Inferior SC Pneumonitis Pulmonary nodules BPH (benign prostatic hyperplasia) COPD (chronic obstructive pulmonary disease) Pneumonia HTN (hypertension) Family History Family History Mother CAD (coronary artery disease) Heart attack Father HTN (hypertension) Brother H/O heart bypass surgery Sister Afib Surgical History Surgical History S/P cardiac catheterization History of carpal tunnel surgery of right wrist Hx of cardiac cath Social History Social History Household Members: Spouse Housing: House Do you presently have visiting nurse or other home services: Yes Alcohol intake: never Patient Tobacco Use Status: Former Tobacco user Tobacco use type: Cigarette Smoked in Last 30 Days: No Use of substances other than those prescribed or required for medical reasons: No Advance Directives: Yes Advance Directives on File: Yes Advance Directives Date on File: 08/18/23 Do you have a plan to hurt others: No Plan Nutrition Risks: No Nutritional Risk service: No Current occupational status: retired Meds Allergies Allergy/AdvReac Type Severity Reaction Status Date / Time ibuprofen Allergy Mild Gastrointestinal Verified 12/18/23 05:04 Upset Active Medications: Current Medications Acetaminophen (Acetaminophen 325 Mg Tablet) 975 mg PO Q6H [facility] Last Admin: 12/19/23 11:06 Dose: 975 mg Albuterol Sulfate (Albuterol Sulfate (0.083%) 2.5 Mg/3 Ml Vial.Neb) 2.5 mg INHALE Q6H PRN PRN Reason: for dyspnea Albuterol Sulfate (Albuterol Sulfate 90 Mcg 8 Gm Inhaler) 2 puff INHALE QID PRN PRN Reason: Shortness of Breath Amlodipine Besylate (Amlodipine Besylate 5 Mg Tablet) 5 mg PO DAILY [facility]; Protocol Last Admin: 12/19/23 08:23 Dose: 5 mg Aspirin (Aspirin Enteric Coated 81 Mg Tablet.) 81 mg PO DAILY [facility] Last Admin: 12/19/23 08:23 Dose: 81 mg Atenolol (Atenolol 25 Mg Tablet) 25 mg PO DAILY [facility]; Protocol Last Admin: 12/19/23 08:23 Dose: 25 mg Benzonatate (Benzonatate 100 Mg Capsule) 100 mg PO TID PRN PRN Reason: Cough Calcium Carbonate (Calcium Carbonate 750 Mg Tab.Chew) 750 mg PO Q4H PRN PRN Reason: Heartburn Cyclobenzaprine HCl (Cyclobenzaprine Hcl 10 Mg Tablet) 10 mg PO TID PRN PRN Reason: Pain, Moderate(Pain Scale 4-6) Last Admin: 12/19/23 08:22 Dose: 10 mg Enoxaparin Sodium (Enoxaparin Sodium 40 Mg/0.4 Ml Syringe) 40 mg SUBCUT Q24H [facility] Last Admin: 12/19/23 08:22 Dose: 40 mg Fluticasone Propionate (Fluticasone Propionate Nasal 16 Gm [place]) 1 spray NOSTRIL-B DAILY PRN PRN Reason: Congestion Fluticasone/Umeclidinium/Vilanterol (Fluticasone/Umeclidinium/Vilanterol 100/62.5/25 Blst.W.Dev) 1 puff INHALE DAILY [facility] Last Admin: 12/19/23 11:56 Dose: 1 puff Furosemide (Furosemide 40 Mg Tablet) 40 mg PO DAILY [facility]; Protocol Last Admin: 12/19/23 08:23 Dose: 40 mg Gabapentin (Gabapentin 100 Mg Capsule) 200 mg PO TID [facility] Last Admin: 12/19/23 08:23 Dose: 200 mg Isosorbide Mononitrate (Isosorbide Mononitrate 60 Mg Tab.Er.24h) 60 mg PO DAILY [facility]; Protocol Last Admin: 12/19/23 10:26 Dose: 60 mg Lidocaine (Lidocaine 4 % Patch Adh..Patch) 1 patch TRANSDERMA DAILY [facility]; Protocol Last Admin: 12/19/23 08:22 Dose: 1 patch Magnesium Hydroxide (Milk Of Magnesia 30 Ml Oral.Susp) 30 ml PO DAILY PRN PRN Reason: Constipation Melatonin (Melatonin 3 Mg Tablet) 6 mg PO BEDTIME PRN PRN Reason: Insomnia Montelukast Sodium (Montelukast Sodium 10 Mg Tablet) 10 mg PO BEDTIME [facility] Omeprazole (Omeprazole 20 Mg Capsule.Dr) 20 mg PO DAILY@0630 [facility] Last Admin: 12/19/23 05:24 Dose: 20 mg Oxycodone HCl (Oxycodone Hcl Immed Release 5 Mg Tablet) 5 mg PO QID PRN PRN Reason: Pain, Moderate(Pain Scale 4-6) Last Admin: 12/19/23 05:27 Dose: 5 mg Prednisone (Prednisone 20 Mg Tablet) 40 mg PO DAILY [facility] Last Admin: 12/19/23 11:06 Dose: 40 mg Sodium Chloride (0.9 % Sodium Chloride Flush 3 Ml Syringe) 3 ml IVFLUSH QSHIFT [facility] Last Admin: 12/19/23 08:16 Dose: Not Given Home Medications ?Medication ?Instructions ?Recorded ?Confirmed ?Last Taken ?Type atenolol 25 mg tablet 25 mg PO DAILY 06/19/20 12/18/23 12/17/23 History aspirin 81 mg tablet,delayed 81 mg PO DAILY 11/19/20 12/18/23 12/17/23 History release pantoprazole 20 mg tablet,delayed 20 mg PO DAILY@0630 11/19/20 12/18/23 12/17/23 History release (Protonix) fluticasone propionate 50 1 spray intranasal DAILY PRN 02/12/21 12/18/23 12/17/23 History mcg/actuation nasal Congestion spray,suspension oxycodone-acetaminophen 5 mg-325 1 tab PO QID PRN Pain (Scale Score 02/12/21 12/18/23 12/17/23 History mg tablet 1-3) nebulizers 10/15/22 Unknown History Oxygen Home Use 01/08/23 Unknown History gabapentin 100 mg capsule 200 mg PO TID 04/10/23 12/18/23 12/17/23 History albuterol sulfate 2.5 mg/3 mL 2.5 mg inhalation Q6H PRN for 08/17/23 12/18/23 12/17/23 History (0.083 %) solution for nebulization dyspnea albuterol sulfate 90 mcg/actuation 2 puff inhalation QID PRN SOB 12/18/23 12/18/23 12/17/23 History aerosol inhaler amlodipine 5 mg tablet 5 mg PO DAILY 12/18/23 12/18/23 12/17/23 History Physical Exam Vital Signs: Vital Signs: Last Vital Signs Temp 98.7 F 12/19/23 05:47 Pulse 71 12/19/23 11:58 Resp 20 12/19/23 11:58 BP 128/75 12/19/23 10:26 Pulse Ox 96 12/19/23 05:47 O2 Del Method Nasal Cannula 12/19/23 05:47 O2 Flow Rate 2 12/19/23 05:47 Oxygen Flow Rate 2 12/18/23 05:02 BMI result Body Mass Index 35.5 Const: General: comfortable and no acute distress Orientation/consciousness: patient oriented x3 HEENT: Other: Unremarkable Head: Yes normal to inspection Neck: Neck: Yes normal visual inspection Chest: Chest palpation & inspection: normal inspection of the chest Resp: Auscultation: clear to auscultation bilaterally Cardio: Palpation: normal PMI Heart sounds: S1 normal heart sound present, S2 abnormal, no gallops, Murmur heart sound present systolic III/ and at the right sternal border and no rubs GI: Palpation (GI): Soft to palpation Back/Spine/Pelvis: Other: unremarkable Skin: General skin exam: no rashes or lesions noted Neuro: General: patient oriented x3 Extrem: General: Yes normal to inspection Psych: Mental Status: mental status grossly normal Objective Labs and Meds 12/18/23 05:49 12/18/23 05:49 Lab results: Laboratory Results - last 24 hr 12/18/23 10:41 COVID-19 ([facility]) Negative COVID-19 Clin Com See Note ECG Interpretation: EKG with sinus rhythm at 69/Min; NC prolongation to 208 milliseconds; PACs; nonspecific ST change. Assessment and Plan (1) Lower back pain: Status: Acute (2) Aortic stenosis: Status: Acute Plan EKG without any clear-cut changes. High sensitivity troponin levels at 22 and 30, within limits. Echocardiogram with LVEF of 55-60%; aneurysmal basal inferior wall; paradoxical low-flow, low gradient severe aortic stenosis. Cardiac catheterization with proximal right coronary artery [employer] with [id number] collaterals. No significant disease in LAD/circumflex. Moderate D1 stenosis. CT scan had reported osteopenia and postsurgical changes in the lumbosacral area. Bilateral hip arthroplasty. Patient is scheduled for TAVR on Thursday. As long as there is no major neurological issue causing his pain and inability to walk, we could transfer him for the procedure. Consider getting an MRI of the lower back and if that is not showing anything of concern, we can transfer. Discussed with Dr. Del Valle. Procedures Date of Service Date of Service: 12/19/23
--- NOTE | 2023-12-19 13:15 | P.PNIM_ITS ---
Subjective Subjective Date of Service: 12/19/23 Interval History: back pain Review of Systems pain somewhat improving moving left leg also better ,he says pain isleft upper leg radiation able to bend both leg , could able to transfer toilet with some effort no bowel or bladder dysfunction constipation Physical Exam 2 Vital Signs: Vital Signs: Last Vital Signs Temp 98.7 F 12/19/23 05:47 Pulse 71 12/19/23 11:58 Resp 20 12/19/23 11:58 BP 128/75 12/19/23 10:26 Pulse Ox 96 12/19/23 05:47 O2 Del Method Nasal Cannula 12/19/23 05:47 O2 Flow Rate 2 12/19/23 05:47 Oxygen Flow Rate 2 12/18/23 05:02 BMI result Body Mass Index 35.5 General: AOx3, no acute distress Resp: CTA bilaterally CVS: S1, S2, RRR GI: +BS, no distention,No guarding or rebound tenderness Skin: Warm, dry MS /spine -no point spine tenderness , paraspinal muscle soarness could able to bend his legs , somewhat rom limited on left leg due to pain Neuro: Cranial nerves II-XII grossly intact bilaterally. move allext Extremities: No edema Psych: Appropriate affect Objective Data Active Medications Acetaminophen (Acetaminophen 325 Mg Tablet) 975 mg PO Q6H [facility] Last Admin: 12/19/23 11:06 Dose: 975 mg Documented By: THA Albuterol Sulfate (Albuterol Sulfate (0.083%) 2.5 Mg/3 Ml Vial.Neb) 2.5 mg INHALE Q6H PRN PRN Reason: for dyspnea Albuterol Sulfate (Albuterol Sulfate 90 Mcg 8 Gm Inhaler) 2 puff INHALE QID PRN PRN Reason: Shortness of Breath Amlodipine Besylate (Amlodipine Besylate 5 Mg Tablet) 5 mg PO DAILY [facility]; Protocol Last Admin: 12/19/23 08:23 Dose: 5 mg Documented By: THA Aspirin (Aspirin Enteric Coated 81 Mg Tablet.) 81 mg PO DAILY [facility] Last Admin: 12/19/23 08:23 Dose: 81 mg Documented By: THA Atenolol (Atenolol 25 Mg Tablet) 25 mg PO DAILY [facility]; Protocol Last Admin: 12/19/23 08:23 Dose: 25 mg Documented By: THA Benzonatate (Benzonatate 100 Mg Capsule) 100 mg PO TID PRN PRN Reason: Cough Calcium Carbonate (Calcium Carbonate 750 Mg Tab.Chew) 750 mg PO Q4H PRN PRN Reason: Heartburn Cyclobenzaprine HCl (Cyclobenzaprine Hcl 10 Mg Tablet) 10 mg PO TID PRN PRN Reason: Pain, Moderate(Pain Scale 4-6) Last Admin: 12/19/23 08:22 Dose: 10 mg Documented By: THA Enoxaparin Sodium (Enoxaparin Sodium 40 Mg/0.4 Ml Syringe) 40 mg SUBCUT Q24H [facility] Last Admin: 12/19/23 08:22 Dose: 40 mg Documented By: THA Fluticasone Propionate (Fluticasone Propionate Nasal 16 Gm [place]) 1 spray NOSTRIL-B DAILY PRN PRN Reason: Congestion Fluticasone/Umeclidinium/Vilanterol (Fluticasone/Umeclidinium/Vilanterol 100/62.5/25 Blst.W.Dev) 1 puff INHALE DAILY [facility] Last Admin: 12/19/23 11:56 Dose: 1 puff Documented By: BRUCE Furosemide (Furosemide 40 Mg Tablet) 40 mg PO DAILY [facility]; Protocol Last Admin: 12/19/23 08:23 Dose: 40 mg Documented By: THA Gabapentin (Gabapentin 100 Mg Capsule) 200 mg PO TID [facility] Last Admin: 12/19/23 08:23 Dose: 200 mg Documented By: THA Isosorbide Mononitrate (Isosorbide Mononitrate 60 Mg Tab.Er.24h) 60 mg PO DAILY [facility]; Protocol Last Admin: 12/19/23 10:26 Dose: 60 mg Documented By: THA Lidocaine (Lidocaine 4 % Patch Adh..Patch) 1 patch TRANSDERMA DAILY [facility]; Protocol Last Admin: 12/19/23 08:22 Dose: 1 patch Documented By: THA Magnesium Hydroxide (Milk Of Magnesia 30 Ml Oral.Susp) 30 ml PO DAILY PRN PRN Reason: Constipation Melatonin (Melatonin 3 Mg Tablet) 6 mg PO BEDTIME PRN PRN Reason: Insomnia Montelukast Sodium (Montelukast Sodium 10 Mg Tablet) 10 mg PO BEDTIME [facility] Omeprazole (Omeprazole 20 Mg Capsule.) 20 mg PO DAILY@0630 [facility] Last Admin: 12/19/23 05:24 Dose: 20 mg Documented By: CODY Oxycodone HCl (Oxycodone Hcl Immed Release 5 Mg Tablet) 5 mg PO QID PRN PRN Reason: Pain, Moderate(Pain Scale 4-6) Last Admin: 12/19/23 05:27 Dose: 5 mg Documented By: CODY Prednisone (Prednisone 20 Mg Tablet) 40 mg PO DAILY [facility] Last Admin: 12/19/23 11:06 Dose: 40 mg Documented By: THA Sodium Chloride (0.9 % Sodium Chloride Flush 3 Ml Syringe) 3 ml IVFLUSH QSHIFT [facility] Last Admin: 12/19/23 08:16 Dose: Not Given Documented By: THA Non-Admin Reason: No Access Labs 12/18/23 05:49 12/18/23 05:49 Labs: Laboratory Results - last 24 hr 12/18/23 10:41 COVID-19 ([facility]) Negative COVID-19 Clin Com See Note Assessment and Plan (1) Lower back pain: Status: Acute Assessment and Plan: 83-year-old male with a PMH significant for?CAD w/hx of NSTEMI, chronic hypoxemic respiratory failure on 2.5 L home O2 at baseline, HFpEF, severe aortic stenosis scheduled for valve replacement on 12/21/2023, HTN, BPH, and hx of polio with chronic LUE and LLE weakness who presents to the ED with?left flank pain radiating to LLE and LLQ x2 days. Pt will be admitted to the hospital under observation for treatment of intractable lower back pain while awaiting transfer to [facility] for TAVR. Lower back pain Patient with left lower back pain radiating to LLE and LLQ ( on/off pains from long time ,somewhat worsening-unclear if muscle strain might be contributing because recently trying to carry lot of griceries as per patient). ct abd-Postsurgical changes status post posterior spinal fusion of L4 and S1, spinal hardware grossly intact. Grade 1anterolisthesis of L5 and S1. Grade 1 retrolisthesis of L2 on L3 and to a lesser extent L3 on L4. Bilateral hip arthroplasty, grossly intact with streak artifact at this level. MR added check lumbar spine . Analgesics for pain management: scheduled Tylenol, oxy 5mg prn,oob ,incentive spirometry,chest physiotherapy,Evaluated by PT, recommend STR Aortic stenosis Scheduled for TAVR on 12/20 at [facility] Cardiology has contacted [facility], will transfer over the weekend HFrEF Not in acute exacerbation Continue atenolol, home Lasix COPD Not in acute exacerbation Continue home inhalers HTN Continue amlodipine CAD Continue aspirin, isosorbide mononitrate BPH Continue tamsulosin Full Code DVT Prophylaxis: [facility] under observation for treatment and further observation of intractable lower back pain while awaiting transfer to [facility] for TAVR Quality Stroke Does the patient have a stroke diagnosis?: No VTE Prior VTE?: No VTE Risk Level:: Medical - moderate - high VTE Device Contraindication: Treatment Not Indicated VTE Drug Contraindication: N/A - Med Ordered
[2023-12-19 15:31] VITALS: BP 121/70; PULSE 66; RESP 18; TEMP 36.2; O2SAT 96
[2023-12-19] MEDS: Montelukast Sodium 10 MG TABLET PO (21:28)
[2023-12-20] VITALS: BP 109/61; PULSE 63; RESP 18; TEMP 36; O2SAT 95
[2023-12-20] MEDS: Omeprazole 20 MG CAPSULE.DR PO (05:48)
[2023-12-20] MEDS: Acetaminophen 325 MG TABLET 975 MG PO ×4 (05:48→22:57)
[2023-12-20 08:46] VITALS: BP 136/75; PULSE 64; RESP 12; TEMP 36.6; O2SAT 97
[2023-12-20] MEDS: Isosorbide Mononitrate 60 MG TAB.ER.24H PO (09:01)
[2023-12-20] MEDS: predniSONE 20 MG TABLET 40 MG PO (09:01)
[2023-12-20] MEDS: Cyclobenzaprine HCl 10 MG TABLET PO (09:01)
[2023-12-20] MEDS: Furosemide 40 MG TABLET PO (09:01)
[2023-12-20] MEDS: Gabapentin 100 MG CAPSULE 200 MG PO ×3 (09:01→20:59)
[2023-12-20] MEDS: Benzonatate 100 MG CAPSULE PO (09:02)
[2023-12-20] MEDS: Enoxaparin Sodium 40 MG/0.4 ML SYRINGE SUBCUT (09:02)
[2023-12-20] MEDS: atenoloL 25 MG TABLET PO (09:02)
[2023-12-20] MEDS: Lidocaine 4 % Patch ADH..PATCH 1 PATCH TRANSDERMA (09:02)
[2023-12-20] MEDS: amLODIPine Besylate 5 MG TABLET PO (09:02)
[2023-12-20] MEDS: Aspirin Enteric Coated 81 MG TABLET.DR PO (09:02)
--- NOTE | 2023-12-20 09:46 | P.PNCA_ITS ---
Subjective Subjective Date of Service: 12/20/23 Interval history: Patient states that his pain is better. Otherwise, no clear-cut cardiac symptoms at this time. Review of Systems Review of Systems Yes all other systems are reviewed and are negative Constitutional: Reports as per HPI and Reports no additional constitutional complaints Eyes: Reports as per HPI and Denies no additional eye complaints Denies system reviewed and no additional complaints, except as documented and Reports as per HPI Cardiovascular: Reports as per HPI, Reports no additional cardiovascular complaints, Denies acrocyanosis, Denies cool extremities, Denies chest pain, Denies leg edema, Denies lightheadedness, Denies palpitations and Denies dyspnea Respiratory: Reports as per HPI, Denies no additional respiratory complaints and Denies dyspnea Gastrointestinal: Reports as per HPI and Denies no additional gastrointestinal complaints Genitourinary: Reports no additional male genitourinary complaints and Reports as per HPI Musculoskeletal: Reports no additional musculoskeletal complaints and Reports as per HPI Skin/Breast: Reports system reviewed and no additional complaints, except as docu Reports system reviewed and no additional complaints, except as documented and Reports as per HPI Psychiatric: Reports no additional psychiatric complaints and Reports as per HPI Endocrine: Reports no additional endocrine complaints, Reports as per HPI and Denies palpitations Hematologic/Lymphatic: Reports no additional hematologic/lymphatic complaints and Reports as per HPI Allergic/Immunologic: Reports no additional allergic/immunologic complaints and Reports as per HPI Physical Exam Vital Signs: Last Vital Signs Temp 98 F 12/20/23 08:46 Pulse 64 12/20/23 08:46 Resp 12 12/20/23 08:46 BP 136/75 12/20/23 08:46 Pulse Ox 97 12/20/23 08:46 O2 Del Method Nasal Cannula 12/20/23 08:46 O2 Flow Rate 2 12/20/23 08:46 Oxygen Flow Rate 2 12/18/23 05:02 BMI result Body Mass Index 35.5 Const General: comfortable and no acute distress Orientation/consciousness: patient oriented x3 HEENT Other: Unremarkable Head: Yes normal to inspection Neck Neck: Yes normal visual inspection Chest Chest palpation & inspection: normal inspection of the chest Resp Auscultation: clear to auscultation bilaterally Cardio Palpation: normal PMI Heart sounds: S1 normal heart sound present, S2 abnormal, no gallops, Murmur heart sound present systolic III/ and at the right sternal border and no rubs GI Palpation (GI): Soft to palpation Back/Spine/Pelvis Other: unremarkable Skin General skin exam: no rashes or lesions noted Neuro General: patient oriented x3 Extrem General: Yes normal to inspection Psych Mental Status: mental status grossly normal Objective Labs and Meds 12/18/23 05:49 12/18/23 05:49 Imaging Radiologist's impression: Impressions Lumbar Spine MRI 12/19/23 17:00 IMPRESSION: * There is a partially imaged disc osteophyte complex at T10-T11 that along with ligamentum flavum thickening and facet arthropathy result in suspected moderate central canal stenosis and significant flattening of the dorsal cord. If there is clinical concern for thoracic myelopathy, a dedicated thoracic spine MRI would be recommended for further assessment as this is not entirely included on this study. * At L1-L2, there is a left paracentral disc protrusion that compresses the traversing left L2 nerve root within the left subarticular zone and there is a left lateral disc osteophyte protrusion that compresses the extraforaminal left L1 nerve root. There are T2 signal changes within the left paravertebral soft tissues at L1-L2, likely inflammatory. * At L2-L3, advanced multifactorial degenerative changes result in moderate central canal stenosis, bilateral subarticular zone stenosis with mass effect on the traversing L3 nerve roots bilaterally, and moderate to severe bilateral foraminal stenosis with mass effect on the exiting L2 nerve roots bilaterally. * At L3-L4, multifactorial degenerative changes result in severe right-sided foraminal stenosis with compression of the exiting right L3 nerve root. * There are postoperative changes following posterior instrumented fusion at L4-S1. There is grade 1 spondylolytic anterolisthesis of L5 on S1 in the setting of chronic bilateral L5 pars defects that along with uncovered disc osteophyte results in severe bilateral foraminal stenosis at L5-S1 with compression of the exiting L5 nerve roots bilaterally. There is no significant central canal stenosis at these levels. Progress Note: A&P Assessment and plan (1) Lower back pain: Status: Acute (2) Aortic stenosis: Status: Acute Plan EKG without any clear-cut changes. High sensitivity troponin levels at 22 and 30, within limits. Echocardiogram with LVEF of 55-60%; aneurysmal basal inferior wall; paradoxical low-flow, low gradient severe aortic stenosis. Cardiac catheterization with proximal right coronary artery [employer] with [id number] collaterals. No significant disease in LAD/circumflex. Moderate D1 stenosis. CTA and MRI results reviewed. Not clear if these all chronic and how significant the findings. Discussed with patient and he states that he still would like to go with the TAVR procedure tomorrow. Hence we will transfer him to [facility]. He will need a neurology or neurosurgery consultation to evaluate the imaging findings and decide if still okay to go ahead with a TAVR tomorrow. Requested bed at [facility]. Discussed with Dr. Del Valle. Time Spent With Patient Time: Total time managing care of this patient today 45 minutes. This includes time spent in review of chart, laboratory data, imaging studies, review of telemetry, counseling patient, discussion with hospitalist, RN, arranging patient transfer, documentation, coordination of care. Progress Note: Quality Stroke Does the patient have a stroke diagnosis?: No Procedures Date of Service Date of Service: 12/20/23
--- NOTE | 2023-12-20 10:09 | P.DS_ITS ---
DS: Providers Provider Date of Service: 12/20/23 Date of admission: 12/18/23 23:18 Date of discharge: 12/20/23 Primary care physician: Marvin Carey MD Consults: 12/18/23 23:18 Consult to Cardiology Routine Consulting Provider: [facility] Reason for consultation: Pt with TAVR on 12/2012/20/23 07:36 Consult to Neurology Routine Consulting Provider: [facility] Reason for consultation: ? radiculopathy, need to go to cardiac procedure Has provider been notified: No Attending physician on discharge: Leona Del Valle Discharging clinician: Leona Del Valle DS: Diagnosis Discharge Diagnosis (1) Lower back pain: Status: Acute (2) Aortic stenosis: Status: Acute DS: Summary Hospital Course Hospital Course: 83-year-old male with a PMH significant for?CAD w/hx of NSTEMI, chronic hypoxemic respiratory failure on 2.5 L home O2 at baseline, HFpEF, severe aortic stenosis scheduled for valve replacement on 12/21/2023, HTN, BPH, and hx of polio with chronic LUE and LLE weakness who presents to the ED with?left flank pain radiating to LLE and LLQ x2 days. States the pain also sometimes feels like it wraps around his lower abdomen. Pt admits to lifting groceries and other light objects recently, but no falls or known trauma to the area. No other acute medical complaints. No chest pain/pressure or palpitations. Denies fever, chills, N/V/D. No shortness of breath or difficulty breathing. In the ED pt was tachycardic up to 98 and slightly hypertensive at 140/75. Labs were significant for mildly elevated BNP of 136, otherwise grossly unremarkable and baseline for patient. No leukocytosis. Stable H&H. No significant electrolyte abnormalities. Renal function baseline. Hepatic function WNL. Initial troponin 22.0 with repeat flat at 30.6. CXR showed chronic appearing interstitial lung markings. CT of abdomen and pelvis?with no acute process, but with numerous chronic findings. EKG demonstrated sinus rhythm with PACs but no evidence of significant ST elevations or depressions. Pt was treated with acetaminophen, morphine, cyclobenzaprine, and lidocaine patch to good effect. Was then seen and evaluated by Physical therapy in the ED where they recommended short-term rehab. However, patient is scheduled for TAVR on 12/21/2023 for severe aortic stenosis, a procedure he has been waiting for for several months and would have to reschedule again if in STR. ED clinician discussed with cardiology who contacted [facility] himself and arranged for transfer over the weekend so pt will not miss his TAVR procedure. Pt will be admitted to the hospital under observation for treatement of intractable lower back pain while awaiting transfer to [facility] for TAVR. Hospital course: 83-year-old male with a PMH significant for?CAD w/hx of NSTEMI, chronic hypoxemic respiratory failure on 2.5 L home O2 at baseline, HFpEF, severe aortic stenosis scheduled for valve replacement on 12/21/2023, HTN, BPH, and hx of polio with chronic LUE and LLE weakness who presents to the ED with?left flank pain radiating to LLE and LLQ x2 days. Pt will be admitted to the hospital under observation for treatment of intractable lower back pain( with someradiation to left upperleg) while awaiting transfer to [facility] for TAVR: Patient started on tylenol ,cyclobenzaprine ,oxycodone 5 mg qid prn ,also added prednisone , mri requested since had some acute component on ch pain ( patient says he did not fall , did lot of groceries carring ) : mri showed facet arthropathy , spinal stenosis moderate and Flattening of dorsal code at T10 and T11 level, also shows postoperative changes following posterior instrumented fusion of L4-S1, severe foraminal stenosis at L5/S1 level with possible compression of L5 roots bilaterally. From L1-L3 patient has central canal stenosis, and foraminal stenosis, as well as some mass effect on the L1 and L2 roots(please see detailed MRI report attached). Also suggested for thoracic spine MRI if concern of myelopathy. With above supportive care with medications,will continue above medications for now-patient pain is seems improved significantly, able to transfer to the commode today, denies any bowel or bladder dysfunction or any weakness or numbness. Range of motion somewhat limited due to pain. Please consider Neurology evaluation. Case discussed with Cardiology: Patient is to be transferred to [facility] for TAVR. conisder Pt eval also .(pt recomended rehab sofar). plan:Please consider Neurology evaluation, if needed thoracic MRI Continue Tylenol, lidocaine patch, prednisone, oxycodone, cyclobenzaprine . PT evaluation also Ct abd (please see detailed info in imaging section):Liver is mildly enlarg ed. Redemonstration of multiple bilateral subcentimeter hepatic hypodense foci too small to characterize though statistically representing cysts. Patient does not have any abdominal pain , liver enzymes also seems fine, consider outpatient follow-up with PCP and if needed further imaging. ct abd alsoshowed:Redemonstrated mildly complex focus in the lateral aspect of the right renal interpolar/lower pole region containing calcifications slightly exophytic measuring 2.2 cm, stable. consider outpatient follow up. Above management discussed with the patient in detail length he understand in agreement with the above plan, time spent 40 minute. Time Attestation Total time managing care of this patient today: 40 mintues. Discharge Coordination Time (in mins): 40 min Quality: Safe Use of Opioids Does Pt have an Active Cancer Diagnosis on the Problem List?: No Quality: Stroke Does the patient have a stroke diagnosis?: No Physical Exam Vital Signs: Vital Signs: Last Vital Signs Temp 98 F 12/20/23 08:46 Pulse 64 12/20/23 08:46 Resp 12 12/20/23 08:46 BP 136/75 12/20/23 08:46 Pulse Ox 97 12/20/23 08:46 O2 Del Method Nasal Cannula 12/20/23 08:46 O2 Flow Rate 2 12/20/23 08:46 Oxygen Flow Rate 2 12/18/23 05:02 BMI result Body Mass Index 35.5 General: AOx3, somewhat pain Resp: CTA bilaterally CVS: S1, S2, RRR GI: +BS, no distention,No guarding or rebound tenderness Skin: Warm, dry MS /spine -no point spine tenderness , paraspinal muscle soarness could able to bend his legs ,able to transfer, somewhat rom limited on left leg due to pain. Neuro: Cranial nerves II-XII grossly intact bilaterally. move allext Extremities: No edema Psych: Appropriate affect DS: Data Imaging Chest x-ray: Radiologist's impression: ITS Impressions Chest X-Ray 12/18/23 08:23 IMPRESSION: 1. Chronic appearing interstitial lung markings with mild bronchial thickening which may reflect infectious/inflammatory etiology. 2. Slight bibasilar atelectasis. 3. Bilateral low lung volumes. Abdomen/Pelvis CT 12/18/23 08:38 IMPRESSION: 1. No acute process of the abdomen or pelvis identified. 2. Liver is mildly enlarged. Redemonstration of multiple bilateral subcentimeter hepatic hypodense foci too small to characterize though statistically representing cysts. 3. Status post cholecystectomy with postsurgical dilatation of the common bile duct. 4. Bilateral renal hypodense foci are noted demonstrating fluid attenuation, statistically representing cysts, not requiring follow-up. Redemonstrated mildly complex focus in the lateral aspect of the right renal interpolar/lower pole region containing calcifications slightly exophytic measuring 2.2 cm, stable. 5. Small to moderate hiatal hernia. 6. Colonic diverticulosis without acute diverticulitis. 7. Small fat filled umbilical hernia. 8. Osteopenia. Postsurgical changes status post posterior spinal fusion of L4 and S1, spinal hardware grossly intact. Grade 1 anterolisthesis of L5 and S1. Grade 1 retrolisthesis of L2 on L3 and to a lesser extent L3 on L4. Bilateral hip arthroplasty, grossly intact with streak artifact at this level. Lumbar Spine MRI 12/19/23 17:00 IMPRESSION: * There is a partially imaged disc osteophyte complex at T10-T11 that along with ligamentum flavum thickening and facet arthropathy result in suspected moderate central canal stenosis and significant flattening of the dorsal cord. If there is clinical concern for thoracic myelopathy, a dedicated thoracic spine MRI would be recommended for further assessment as this is not entirely included on this study. * At L1-L2, there is a left paracentral disc protrusion that compresses the traversing left L2 nerve root within the left subarticular zone and there is a left lateral disc osteophyte protrusion that compresses the extraforaminal left L1 nerve root. There are T2 signal changes within the left paravertebral soft tissues at L1-L2, likely inflammatory. * At L2-L3, advanced multifactorial degenerative changes result in moderate central canal stenosis, bilateral subarticular zone stenosis with mass effect on the traversing L3 nerve roots bilaterally, and moderate to severe bilateral foraminal stenosis with mass effect on the exiting L2 nerve roots bilaterally. * At L3-L4, multifactorial degenerative changes result in severe right-sided foraminal stenosis with compression of the exiting right L3 nerve root. * There are postoperative changes following posterior instrumented fusion at L4-S1. There is grade 1 spondylolytic anterolisthesis of L5 on S1 in the setting of chronic bilateral L5 pars defects that along with uncovered disc osteophyte results in severe bilateral foraminal stenosis at L5-S1 with compression of the exiting L5 nerve roots bilaterally. There is no significant central canal stenosis at these levels. Discharge Plan Discharge Anticipated Discharge Date/Time: 12/20/23 09:48 Patient Disposition: Xfer Acute Care Hospital Discharge Diagnosis: aortic stensosis , back pain -severe spinal stensosis ,? mild compresssion Referrals: [facility] [Other] - 1 Week Marvin Carey MD [Primary Care Provider] - 1 Week Discharge Medications: New lidocaine [Lidocaine Pain Relief] 4 % Adhesive Patch,Medicated 1 patch transdermal DAILY Qty: 1 0RF Protocol: Apply to: Apply to: Left lower back acetaminophen 325 mg Tablet 975 mg PO Q6H Qty: 1 0RF prednisone 20 mg Tablet 40 mg PO DAILY Qty: 1 0RF cyclobenzaprine 10 mg Tablet 10 mg PO TID PRN (Reason: Pain, Moderate(Pain Scale 4-6)) Qty: 1 0RF Continued isosorbide mononitrate 60 mg tablet extended release 24 hr 60 mg PO DAILY Qty: 90 3RF atenolol 25 mg Tablet 25 mg PO DAILY albuterol sulfate 2.5 mg /3 mL (0.083 %) solution for nebulization 2.5 mg inhalation Q6H PRN (Reason: for dyspnea) albuterol sulfate 90 mcg/actuation HFA aerosol inhaler 2 puff inhalation QID PRN (Reason: SOB) amlodipine 5 mg tablet 5 mg PO DAILY montelukast 10 mg tablet 10 mg PO DAILY 30 Days Qty: 30 11RF aspirin 81 mg tablet,delayed release (DR/EC) 81 mg PO DAILY pantoprazole [Protonix] 20 mg tablet,delayed release (DR/EC) 20 mg PO DAILY@0630 gabapentin 100 mg capsule 200 mg PO TID oxycodone-acetaminophen 5-325 mg tablet 1 tab PO QID PRN (Reason: Pain (Scale Score 1-3)) fluticasone propionate 50 mcg/actuation spray,suspension 1 spray intranasal DAILY PRN (Reason: Congestion) (DME) nebulizers Misc See Rx Instructions .Route Rx Instructions: As directed (DME) Oxygen Home Use Kit See Rx Instructions .Route Rx Instructions: As directed Trelegy Ellipta 100-62.5-25 mcg blister with device 1 ea inhalation DAILY 30 Days Qty: 60 11RF Held furosemide 40 mg tablet 40 mg PO DAILY Qty: 30 0RF Hold Instructions: Resume on 12/22/23. Protocol: Hold for SBP< HOLD for SBP < : 90 Rx Instructions: KEEP YOUR APPT on 10/06/23 at 10:00, [facility] Office w Fatuma Sam, [employer]ar[employer] Discharge Orders: Discharge Order (Routine); Ordered 12/20/23 Ordered By: Leona Del Valle Diet: Advance to usual diet Activity on Discharge: As tolerated Stand Alone Forms: Patient Portal Discharge page Print Language: Danish Care Plan Goals: 83-year-old male with a PMH significant for?CAD w/hx of NSTEMI, chronic hypoxemic respiratory failure on 2.5 L home O2 at baseline, HFpEF, severe aortic stenosis scheduled for valve replacement on 12/21/2023, HTN, BPH, and hx of polio with chronic LUE and LLE weakness who presents to the ED with?left flank pain radiating to LLE and LLQ x2 days. Pt will be admitted to the hospital under observation for treatment of intractable lower back pain( with someradiation to left upperleg) while awaiting transfer to [facility] for TAVR: Patient started on tyl enol ,cyclobenzaprine ,oxycodone 5 mg qid prn ,also added prednisone , mri requested since had some acute component on ch pain ( patient says he did not fall , did lot of groceries carring ) : mri showed facet arthropathy , spinal stenosis moderate and Flattening of dorsal code at T10 and T11 level, also shows postoperative changes following posterior instrumented fusion of L4-S1, severe foraminal stenosis at L5/S1 level with possible compression of L5 roots bilaterally. From L1-L3 patient has central canal stenosis, and foraminal stenosis, as well as some mass effect on the L1 and L2 roots(please see detailed MRI report attached). Also suggested for thoracic spine MRI if concern of myelopathy. With above supportive care with medications,will continue above medications for now-patient pain is seems improved significantly, able to transfer to the commode today, denies any bowel or bladder dysfunction or any weakness or numbness. Range of motion somewhat limited due to pain. Please consider Neurology evaluation in [facility] for above since patient will be going to TAVR. Case discussed with Cardiology: Patient is to be transferred to [facility] for TAVR. nichole Pt marino also .(pt recomended rehab [place]). Health Concerns: As above. Plan of Treatment: As above. Assessment: As above.
--- NOTE | 2023-12-20 10:25 | MHC.CM.PN ---
pt lives with and 2 sisters pt being transferred to [facility]
[2023-12-20] MEDS: oxyCODONE HCl Immed Release 5 MG TABLET PO ×2 (10:47→16:50)
--- NOTE | 2023-12-20 12:09 | P.CNNE_ITS ---
History of Present Illness Data of Consult Service Date: 12/20/23 Primary Care Provider: Marvin Carey MD HPI Reason for consult: Low back pain 83-year-old male with a PMH significant for?CAD w/hx of NSTEMI, chronic hypoxemic respiratory failure on 2.5 L home O2 at baseline, HFpEF, severe aortic stenosis scheduled for valve replacement on 12/21/2023, HTN, BPH, and hx of polio with chronic LUE and LLE weakness who presents to the ED with?left lower back, left flank pain radiating to LLE and LLQ of abdomen x2 days. States the pain also sometimes feels like it wraps around his lower abdomen. Pt admits to lifting groceries and other light objects recently, but no falls or known trauma to the area. Previous h/o L5-S1 fusion. No other acute medical complaints. No chest pain/pressure or palpitations. Denies fever, chills, N/V/D. No shortness of breath or difficulty breathing. MRI of the lumbar spine showsD 1011 stenosis with possible lower cord compression and multilevel degenerative disc disease at every level below that in the lumbar spine causing a mild to moderate degree of foraminal stenosis and encroachment. [facility] Past Medical History Medical History Aortic stenosis Bacteriuria Congestive heart disease Chronic lung disease Chronic respiratory failure Pre-op chest exam Inferior [place] Pneumonitis Pulmonary nodules BPH (benign prostatic hyperplasia) COPD (chronic obstructive pulmonary disease) Pneumonia HTN (hypertension) Family History Family History Mother CAD (coronary artery disease) Heart attack Father HTN (hypertension) Brother H/O heart bypass surgery Sister Afib Surgical History Surgical History S/P cardiac catheterization History of carpal tunnel surgery of right wrist Hx of cardiac cath Social History Social History Household Members: Spouse Housing: House Do you presently have visiting nurse or other home services: Yes Alcohol intake: never Patient Tobacco Use Status: Former Tobacco user Tobacco use type: Cigarette Advance Directives Date on File: 08/18/23 service: No Current occupational status: retired Meds Allergies Allergy/AdvReac Type Severity Reaction Status Date / Time ibuprofen Allergy Mild Gastrointestinal Verified 12/18/23 05:04 Upset Active Medications: Current Medications Acetaminophen (Acetaminophen 325 Mg Tablet) 975 mg PO Q6H [facility] Last Admin: 12/20/23 10:44 Dose: 975 mg Albuterol Sulfate (Albuterol Sulfate (0.083%) 2.5 Mg/3 Ml Vial.Neb) 2.5 mg INHALE Q6H PRN PRN Reason: for dyspnea Albuterol Sulfate (Albuterol Sulfate 90 Mcg 8 Gm Inhaler) 2 puff INHALE QID PRN PRN Reason: Shortness of Breath Amlodipine Besylate (Amlodipine Besylate 5 Mg Tablet) 5 mg PO DAILY [facility]; Protocol Last Admin: 12/20/23 09:02 Dose: 5 mg Aspirin (Aspirin Enteric Coated 81 Mg Tablet.) 81 mg PO DAILY [facility] Last Admin: 12/20/23 09:02 Dose: 81 mg Atenolol (Atenolol 25 Mg Tablet) 25 mg PO DAILY [facility]; Protocol Last Admin: 12/20/23 09:02 Dose: 25 mg Benzonatate (Benzonatate 100 Mg Capsule) 100 mg PO TID PRN PRN Reason: Cough Last Admin: 12/20/23 09:02 Dose: 100 mg Calcium Carbonate (Calcium Carbonate 750 Mg Tab.Chew) 750 mg PO Q4H PRN PRN Reason: Heartburn Cyclobenzaprine HCl (Cyclobenzaprine Hcl 10 Mg Tablet) 10 mg PO TID PRN PRN Reason: Pain, Moderate(Pain Scale 4-6) Last Admin: 12/20/23 09:01 Dose: 10 mg Enoxaparin Sodium (Enoxaparin Sodium 40 Mg/0.4 Ml Syringe) 40 mg SUBCUT Q24H [facility] Last Admin: 12/20/23 09:02 Dose: 40 mg Fluticasone Propionate (Fluticasone Propionate Nasal 16 Gm [place]) 1 spray NOSTRIL-B DAILY PRN PRN Reason: Congestion Fluticasone/Umeclidinium/Vilanterol (Fluticasone/Umeclidinium/Vilanterol 100/62.5/25 Blst.W.Dev) 1 puff INHALE DAILY [facility] Last Admin: 12/20/23 10:37 Dose: Not Given Furosemide (Furosemide 40 Mg Tablet) 40 mg PO DAILY [facility]; Protocol Last Admin: 12/20/23 09:01 Dose: 40 mg Gabapentin (Gabapentin 100 Mg Capsule) 200 mg PO TID [facility] Last Admin: 12/20/23 09:01 Dose: 200 mg Isosorbide Mononitrate (Isosorbide Mononitrate 60 Mg Tab.Er.24h) 60 mg PO DAILY [facility]; Protocol Last Admin: 12/20/23 09:01 Dose: 60 mg Lidocaine (Lidocaine 4 % Patch Adh..Patch) 1 patch TRANSDERMA DAILY [facility]; Protocol Last Admin: 12/20/23 09:02 Dose: 1 patch Magnesium Hydroxide (Milk Of Magnesia 30 Ml Oral.Susp) 30 ml PO DAILY PRN PRN Reason: Constipation Melatonin (Melatonin 3 Mg Tablet) 6 mg PO BEDTIME PRN PRN Reason: Insomnia Montelukast Sodium (Montelukast Sodium 10 Mg Tablet) 10 mg PO BEDTIME [facility] Last Admin: 12/19/23 21:28 Dose: 10 mg Omeprazole (Omeprazole 20 Mg Capsule.Dr) 20 mg PO DAILY@629 [facility] Last Admin: 12/20/23 05:48 Dose: 20 mg Oxycodone HCl (Oxycodone Hcl Immed Release 5 Mg Tablet) 5 mg PO QID PRN PRN Reason: Pain, Moderate(Pain Scale 4-6) Last Admin: 12/20/23 10:47 Dose: 5 mg Prednisone (Prednisone 20 Mg Tablet) 40 mg PO DAILY [facility] Last Admin: 12/20/23 09:01 Dose: 40 mg Sodium Chloride (0.9 % Sodium Chloride Flush 3 Ml Syringe) 3 ml IVFLUSH [facility] Last Admin: 12/20/23 08:50 Dose: Not Given Home Medications ?Medication ?Instructions ?Recorded ?Confirmed ?Last Taken ?Type atenolol 25 mg tablet 25 mg PO DAILY 06/19/20 12/18/23 12/17/23 History aspirin 81 mg tablet,delayed 81 mg PO DAILY 11/19/20 12/18/23 12/17/23 History release pantoprazole 20 mg tablet,delayed 20 mg PO DAILY@0630 11/19/20 12/18/23 12/17/23 History release (Protonix) fluticasone propionate 50 1 spray intranasal DAILY PRN 02/12/21 12/18/23 12/17/23 History mcg/actuation nasal Congestion spray,suspension oxycodone-acetaminophen 5 mg-325 1 tab PO QID PRN Pain (Scale Score 02/12/21 12/18/23 12/17/23 History mg tablet 1-3) nebulizers 10/15/22 Unknown History Oxygen Home Use 01/08/23 Unknown History gabapentin 100 mg capsule 200 mg PO TID 04/10/23 12/18/23 12/17/23 History albuterol sulfate 2.5 mg/3 mL 2.5 mg inhalation Q6H PRN for 08/17/23 12/18/23 12/17/23 History (0.083 %) solution for nebulization dyspnea albuterol sulfate 90 mcg/actuation 2 puff inhalation QID PRN SOB 12/18/23 12/18/23 12/17/23 History aerosol inhaler amlodipine 5 mg tablet 5 mg PO DAILY 12/18/23 12/18/23 12/17/23 History Physical Exam 2 Vital Signs: Vital Signs: Last Vital Signs Temp 98 F 12/20/23 08:46 Pulse 64 12/20/23 08:46 Resp 12 12/20/23 08:46 BP 136/75 12/20/23 08:46 Pulse Ox 97 12/20/23 08:46 O2 Del Method Nasal Cannula 12/20/23 08:46 O2 Flow Rate 2 12/20/23 08:46 Oxygen Flow Rate 2 12/18/23 05:02 BMI result Body Mass Index 35.5 Neuro: Other: Mild to moderate atrophy of the left calf and leg from previous polio. Minimal weakness in the left toes and dorsiflexors, related to previous polio. Areflexic in the lower extremities. Gait was not tested. Results Labs 12/18/23 05:49 12/18/23 05:49 Assessment and Plan (1) Lower back pain: Status: Acute Multilevel moderately advanced degenerative disc disease with osteophytes and disc bulges causing multilevel last moderate stenosis of the foramina on openings on both sides and T10-11 in a central canal stenosis with possible flattening of the lower cord. None of these findings her acute and should not impact his upcoming heart valve surgery on 12/21/23. Once he is recovered from his cardiac surgery and that his problems continue he may need a dedicated MRI of the lower thoracic spine and further assessment after that. I would treat him symptomatically for the pain at this time. Procedures Date of Service Date of Service: 12/20/23
[2023-12-20 15:34] VITALS: BP 114/57; PULSE 65; RESP 18; TEMP 36.3; O2SAT 93
[2023-12-20 19:34] VITALS: BP 114/61; PULSE 69; RESP 20; TEMP 36.6; O2SAT 95
[2023-12-20] MEDS: Montelukast Sodium 10 MG TABLET PO (20:59)
== END 2023-12-21 00:25 | disposition short-term general hospital (02) ==
LOC: HO.ED 12-19 00:37 → HO.EDOVER 12-19 08:54 → HO.S3 12-19 12:53
PROVIDERS: Physician Assistant; Admitting Provider Student in an Organized Health Care Education/Training Program; Emergency Provider Emergency Medicine; PCP Internal Medicine; Visit Provider Internal Medicine
DX: I35.0 Nonrheumatic aortic (valve) stenosis (principal); M48.07 Spinal stenosis, lumbosacral region; R10.9 Unspecified abdominal pain; J44.9 Chronic obstructive pulmonary disease, unspecified; R10.30 Lower abdominal pain, unspecified; I25.2 Old myocardial infarction; I11.0 Hypertensive heart disease with heart failure; I50.20 Unspecified systolic (congestive) heart failure; R10.814 Left lower quadrant abdominal tenderness; M51.34 Other intervertebral disc degeneration, thoracic region; M48.04 Spinal stenosis, thoracic region; M51.36 Other intervertebral disc degeneration, lumbar region; Z79.899 Other long term (current) drug therapy
CPT/HCPCS: 36415; 71045; 72148; 74176; 80053; 81001; 83735; 83880; 84484; 85025; 87635; 93005; 94640; 96372; 97162; 97530; 99221; 99285; J1650

== ENCOUNTER → 2023-12-18 05:12 | Outpatient (BNV) | payer MEDICARE, SELFPAY | PROVIDERS: Emergency Provider Emergency Medicine; PCP Internal Medicine; Visit Provider Internal Medicine | DX: I49.1 Atrial premature depolarization (principal) | CPT/HCPCS: 93010 ==

== ENCOUNTER → 2023-12-18 23:18 | Outpatient (BNV) | payer MEDICARE, SELFPAY | PROVIDERS: Admitting Provider Student in an Organized Health Care Education/Training Program; Emergency Provider Emergency Medicine; PCP Internal Medicine; Visit Provider Psychiatry & Neurology Neurology | DX: M48.05 Spinal stenosis, thoracolumbar region (principal) | CPT/HCPCS: 99222 ==

== ENCOUNTER → 2023-12-18 23:18 | Outpatient (BNV) | payer MEDICARE, SELFPAY | PROVIDERS: Admitting Provider Student in an Organized Health Care Education/Training Program; Emergency Provider Emergency Medicine; PCP Internal Medicine; Visit Provider Internal Medicine | DX: M54.50 Low back pain, unspecified (principal); I35.0 Nonrheumatic aortic (valve) stenosis | CPT/HCPCS: 99222; 99231; 99239 ==

== ENCOUNTER → 2023-12-18 23:18 | Outpatient (BNV) | payer MEDICARE, SELFPAY | PROVIDERS: Admitting Provider Student in an Organized Health Care Education/Training Program; Emergency Provider Emergency Medicine; PCP Internal Medicine; Visit Provider Internal Medicine | DX: M54.50 Low back pain, unspecified (principal); I35.0 Nonrheumatic aortic (valve) stenosis | CPT/HCPCS: 99223; 99233 ==

== ENCOUNTER 2024-01-01 13:13 | Outpatient (AMB) | payer MEDICARE, SELFPAY ==
--- NOTE | 2024-01-01 13:16 | A.OFFVIS_ITS ---
Vital Signs 01/01/24 13:17 Height 5 ft 3 in Weight 180 lb 12.465 oz BMI 32.0 BP 116/60 Blood Pressure Location Rt brachial Position Sitting Pulse 61 Pulse Source Pulse Oximeter Intake Visit Reasons: 3m follow up Allergies ibuprofen Allergy (Mild, Verified 12/18/23 05:04) Gastrointestinal Upset Medication List - Last Reconciled 01/01/24 by Rachel Hernandez NP acetaminophen 975 mg (3 x 325 mg) PO Q6H albuterol sulfate 2.5 mg inhalation Q6H PRN albuterol sulfate 90 mcg/actuation 2 puffs inhalation QID PRN amlodipine 5 mg PO DAILY aspirin 81 mg PO DAILY atenolol 25 mg PO DAILY cyclobenzaprine 10 mg PO TID PRN fluticasone propionate 50 mcg/actuation 1 spray intranasal DAILY PRN bhhxpqagsnl-ldsolqkxb-hwzmmxon 100-62.5-25 mcg (Trelegy Ellipta) 1 ea inhalation DAILY 30 days gabapentin 200 mg PO TID isosorbide mononitrate ER 60 mg PO DAILY lidocaine 4% (Lidocaine Pain Relief) 1 patch See Protocol transdermal DAILY montelukast 10 mg PO DAILY 30 days nebulizers As directed oxycodone-acetaminophen 5-325 mg 1 tab PO QID PRN Oxygen Home Use As directed pantoprazole (Protonix) 20 mg PO DAILY@629 prednisone 40 mg (2 x 20 mg) PO DAILY HPI Comments Details: 83-year-old male presents today for a follow-up appointment. During last office visit we discussed TAVR procedure and he after discussion. Unfortunately back at the end of November he got into the hospital for body pain. He was then transferred over to [facility] as he was supposed to be having his TAVR procedure but it was canceled due to concern over nerve pain. He was then cleared by Neurosurgery for the TAVR procedure. He was discharged from [facility] on 12/24/23. He is scheduled for his TAVR procedure this upcoming Thursday. reports otherwise doing well. Denies chest pains, shortness of breath, dizziness, or falls. [facility] Medical History Aortic stenosis Bacteriuria Congestive heart disease Chronic lung disease Chronic respiratory failure Pre-op chest exam Inferior [place] Pneumonitis Pulmonary nodules BPH (benign prostatic hyperplasia) COPD (chronic obstructive pulmonary disease) Pneumonia HTN (hypertension) Surgical History S/P cardiac catheterization History of carpal tunnel surgery of right wrist Hx of cardiac cath Family History Mother CAD (coronary artery disease) Heart attack Father HTN (hypertension) Brother H/O heart bypass surgery Sister Afib Social History Household Members: Spouse Housing: House Do you presently have visiting nurse or other home services: Yes Alcohol intake: never Patient Tobacco Use Status: Former Tobacco user Tobacco use type: Cigarette Advance Directives Date on File: 08/18/23 service: No Current occupational status: retired Review of Systems Const Denies weakness ENT Denies dizziness Card Denies chest pain, Denies chest pain with activity, Denies syncope, Denies rapid heart rate, Denies pedal edema, Denies edema, Denies leg edema, Denies lightheadedness, Denies palpitations, Denies dyspnea, Denies dyspnea on exertion and Denies orthopnea Resp Denies cough, Denies dyspnea and Denies dyspnea on exertion GI Denies hematochezia and Denies change in stool character Musc Denies abnormal gait, Denies muscle cramps, Denies muscle weakness, Denies numbness, Denies radiating pain into limb and Denies tingling Neuro Denies abnormal gait, Denies dizziness, Denies syncope, Denies numbness, Denies tingling and Denies weakness Endo Denies palpitations Physical Exam Vital Signs: Last Vital Signs Pulse 61 01/01/24 13:17 BP 116/60 01/01/24 13:17 BMI result Body Mass Index 32.0 Assessment & Plan Assessment & Plan (1) Aortic stenosis: Code(s): I35.0 - Nonrheumatic aortic (valve) stenosis Category: Medical (2) S/P cardiac catheterization: Code(s): Z98.890 - Other specified postprocedural states Category: Surgical Plan Cath on 09/22/2023 showed: Elevated LVEDP 27 to 30 mmHg. Mean gradient across aortic valve 25 mmHg. Aortic valve area 0.81. Stroke-volume index 30. Pulm capital wedge pressure 21 mmHg, RV 35/10 mean 15, PA 35/19 mean 25, RA of 12 mmHg. 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 No significant disease in the LAD or circumflex. Moderate first diagonal stenosis. RDiscussed about he TAVR procedure. He is agreeable to plan still and has discussed it in detail with the surgeon. He is due for TAVR on Thursday. Coding Level of Care Code Est Pt Level 3 (76508) Diagnoses Aortic stenosis I35.0 S/P cardiac catheterization Z98.890
[2024-01-01 13:17] VITALS: BP 116/60; PULSE 61; BMI 32.0
== END 2024-01-01 14:15 | disposition home or self-care (01) ==
PROVIDERS: PCP Internal Medicine; Visit Provider Nurse Practitioner
DX: I35.0 Nonrheumatic aortic (valve) stenosis (principal); Z98.890 Other specified postprocedural states
CPT/HCPCS: 99213

== ENCOUNTER → 2024-01-01 13:13 | Outpatient (BNVA) | payer MEDICARE, SELFPAY | PROVIDERS: PCP Internal Medicine; Visit Provider Nurse Practitioner | DX: I35.0 Nonrheumatic aortic (valve) stenosis (principal); Z98.890 Other specified postprocedural states | CPT/HCPCS: 99212 ==

== ENCOUNTER 2024-02-16 13:14 | Outpatient (REF) | payer MEDICARE, MEDICAID, SELFPAY ==
[2024-02-16 14:02] LABS: MANUAL DIFF FLAG NO
[2024-02-16 15:52] LABS: Basophils Absolute Auto 0.1 X10*3/uL (0.0-0.2); Basophils Percent Auto 0.4 % (0-2); Eosinophils Absolute Auto 0.2 X10*3/uL (0.0-0.4); Eosinophils Percent Auto 1.3 % (0-4); Hematocrit 40.6 % (42.0-52.0); Hemoglobin 12.8 g/dl (14.0-18.0); Imm Gran Abs Auto 0.05 X10*3/uL (0.00-0.03); Imm Gran Pct Auto 0.4 % (0.0-0.4); Lymphocytes Absolute Auto 1.4 X10*3/uL (1.2-4.9); Lymphocytes Percent Auto 12.7 % (20-40); Mean Corpuscular HGB Conc 31.5 g/dl (31.0-36.0); Mean Corpuscular Hemoglobin 28.7 pg (27.0-33.0); Mean Platelet Volume 9.8 fL (9.4-12.4); Monocytes Absolute Auto 0.8 X10*3/uL (0.1-1.2); Monocytes Percent Auto 6.8 % (2-11); Neutrophils Absolute Auto 8.8 x10*3/uL (2.0-8.3); Neutrophils Percent Auto 78.4 % (45-73); Platelet Count 197 X10*3/uL (160-400); Red Blood Count 4.46 X10*6/uL (4.60-5.80); White Blood Count 11.2 X10*3/uL (4.8-10.8)
[2024-02-16 16:47] LABS: Troponin-I High Sensitivity 63.7 ng/L (<3.5-35.0)
[2024-02-16 18:08] LABS: Anion Gap 14 (12-20); Blood Urea Nitrogen 18 mg/dL (9-16); Calcium 9.6 mg/dL (8.4-10.2); Carbon Dioxide 28 mmol/L (22-29); Chloride 103 mmol/L (96-108); Estimated Glomerular Filt Rate > 60; Glucose Random 135 mg/dL (60-115); Potassium 3.9 mmol/L (3.3-5.1); Sodium 141 mmol/L (135-145)
== END 2024-02-16 13:15 | disposition home or self-care (01) ==
LOC: HO.LAB 13:14
PROVIDERS: PCP Internal Medicine; Visit Provider Hospitalist
DX: J18.9 Pneumonia, unspecified organism (principal); J96.11 Chronic respiratory failure with hypoxia; R07.9 Chest pain, unspecified; J44.1 Chronic obstructive pulmonary disease with (acute) exacerbation
CPT/HCPCS: 36415; 80048; 84484; 85025; 99212

== ENCOUNTER 2024-02-16 13:14 | Outpatient (AMB) | payer MEDICARE, MEDICAID, SELFPAY ==
[2024-02-16 13:17] VITALS: BP 120/60; PULSE 76; O2SAT 92; BMI 31.2
--- NOTE | 2024-02-16 13:17 | A.OFFVIS_ITS ---
Vital Signs 02/16/24 13:17 Height 5 ft 3 in Weight 176 lb BMI 31.2 BP 120/60 Blood Pressure Location Rt brachial Position Sitting Pulse 76 Pulse Source Pulse Oximeter Pulse Oximetry (%) 92 Oxygen Delivery Method Room Air Intake Visit Reasons: COPD/PFT Follow Up Rn Security Required: No Allergies ibuprofen Allergy (Mild, Verified 02/16/24 13:20) Gastrointestinal Upset HPI Comments Details: 83 year-old gentleman who is here for follow-up. He has background history of coronary artery disease. He presented to us at [facility] with mild NSTEMI in the setting of COPD exacerbation with ST depressions. 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 We decided to medically manage him. He has advanced lung disease due to COPD. He is saying he is doing better with inhalers and medications. He has bilateral lower extremity edema. He also has some shoulder issues and will require surgery in 1 month. He is complaining that he has been off balance a lot and tends to fall to the right side of the body. 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 He is saying he consistently falls right-sided. He has been using a cane to walk. 04/15/2022 the patient is here for a pulmonary follow-up visit. The patient will be undergoing a hip surgery soon. He is going to require total hip replacement. This will be done at [facility]. In the meantime is respiratory status is at baseline. He does have some shortness breath with activity mild to moderate with severity. The patient does use a cane and he does get some fatigue just because is also dealing with this musculoskeletal issues. Today need to get an x-ray in therefore we did get him a wheelchair for the duration of the ambulation. He does continue to uses inhalers as prescribed. He does have Trelegy that he uses in the morning and then a rescue inhaler to use as needed. The patient is complaining of some chest discomfort coming and going. Currently he does not have it. As far as his respiratory exam is benign. He does not have any reproducible discomfort. Will have him get a chest x-ray to make sure that all is well. He will be following up with Cardiology soon. He does have a cardiac history. The patient is aware that if the chest pain returns of her worsens he is to go to the ED or seek medical attention. 10/15/2022 the patient is here for pulmonary follow-up visit. Since we last spoke he did develop a respiratory illness in a COPD exacerbation. He sized primary care doctor who placed on prednisone and a course of Z-Edward. The patient improved although he has symptoms then started reoccurring. Does have increased chest congestion. He had been on azithromycin in the past and that was helpful for him. Therefore will which started for another 4-8 weeks to see if we can get his lungs a little bit more clear. The patient has been using his respiratory therapy as prescribed. 12/23/2022 the patient is here for pulmonary sick visit. He is having worsening chest discomfort shortness of breath and cough. He has been using his inhalers with only partial resolution of the symptoms. He is also concerned because he feels very weak. Today in the office was noted to have significant wheezing chest tightness. His also cough is productive at times. The patient was given a treatment with DuoNeb and he did feel better. He did have a brief 6 minute walk test the patient did desaturate very quickly to 88% with just a few steps. He was placed on 2 L pulse and did well maintaining a pulse ox 92%. Therefore he needs to start oxygen at this time. Patient also will undergo blood work and a chest x-ray at this time. He will start antibiotics and prednisone. If the patient is no better or if he worsens he definitely has to go to the hospital for further care. In the meantime is a follow-up in a couple weeks. 01/08/2023 the patient is here for pulmonary follow-up visit. During the last visit he was fairly sick he was started on oxygen. The patient completed the prednisone and now the antibiotics. Now complaining of significant sore throat. Feels very dry. She has significant thrush this time. May have some Dayna esophagitis since he has also some discomfort swallowing. Will go ahead and start him on fluconazole. Since we last spoke the patient did have blood work including an elevated troponin I. I did call him and told him to go to the ER which she did. Not clear which ER he went to. He will also follow up with his watch train assembler. For the most part the cardiac issues are likely secondary to the demand from his respiratory process. His chest x-ray also looked that and was fairly unremarkable. The patient has been using the oxygen with good effect. Also been using the Trelegy. It is also feeling better overall. 04/10/2023 the patient is here for a pulmonary follow-up visit. Has not been complaining of worsening shortness of breath and chest tightness. He has been using his in haler once or twice a day. Only with partial improvement of his symptoms. He has been using his oxygen more regularly. On examination he does have increased wheezing chest tightness along with a prolonged expiratory phase. He is already on Trelegy. He is already tried azithromycin. I do believe Daliresp will be a good option for him. Although we did talk about the GI symptoms that can occur. The patient can always start small dose and see to take it slowly titrating it up to minimize on the adverse effects. Patient also will need some prednisone to help him with this amount of wheezing. If the patient is no better after the prednisone or if he can not tolerate the Daliresp she should call the office for an earlier assessment otherwise will follow-up in 3-4 months. 08/13/2023 the patient is here for a pulmonary follow-up visit. He continues on the Trelegy inhaler. Appears to be affecting beneficial. Still has some dyspnea on exertion. Fxwz-py-jkrxaect severity. Mainly with activity. Does get better with rest. The last visit he did have an exacerbation. He has not had any need for additional antibiotics and prednisone since we last spoke. Will plan to request PFTs for his next visit. We also did review his last chest x-ray from December 2022. Demonstrated some volume overload status. No overt heart failure. He knows to be careful with his sodium intake And also taking the diuretic. 02/16/2024 the patient is here for a pulmonary follow-up visit. He has had a very eventful few months. Since we last spoke to him he did follow-up with Cardiology. He was evaluated for the aortic stenosis. The patient underwent a heart catheterization. Found to have some coronary artery disease. Appears to have a moderate stenosis of the OM 1. In addition to that 100% obstruction of the right coronary artery which is chronic. Other mild disease noted. The patient underwent a trans vascular aortic valve replacement apparently without any complications initially. 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 He was treated with anticoagulation. He was evaluated at [facility] I do not have any imaging reports from [facility] to be able to comment on as far as if he develops any pulmonary emboli. But right now he is being treated with the anticoagulation. He did developing worsening cough chest congestion. Also developed some chest tightness and wheezing. On examination does have some rhonchi and wheezing consistent with a COPD exacerbation. Therefore will go ahead and treat him for that. Of note the patient also mentioned that he is having episodic chest pain pressure sensation [id number]-[id number] severity. Sometimes the symptoms last for 5 to 15 minutes. He does have nitroglycerin although he has never used it. Right now the patient has not told anybody. I did tell him to go to the ER the next time happens he does not have any chest pain right now. Also did advise him to take the nitroglycerin. He will undergo blood work today. If his troponin is elevated then he should therefore be evaluated for that. 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 If he develops any further chest pain he may need to go the hospital as well to have that further evaluated. [facility] Medical History Aortic stenosis Bacteriuria Congestive heart disease Chronic lung disease Chronic respiratory failure Pre-op chest exam Inferior [place] Pneumonitis Pulmonary nodules BPH (benign prostatic hyperplasia) COPD (chronic obstructive pulmonary disease) Pneumonia HTN (hypertension) Surgical History S/P cardiac catheterization History of carpal tunnel surgery of right wrist Hx of cardiac cath Family History Mother CAD (coronary artery disease) Heart attack Father HTN (hypertension) Brother H/O heart bypass surgery Sister Afib Social History Household Members: Spouse Housing: House Do you presently have visiting nurse or other home services: Yes Alcohol intake: never Patient Tobacco Use Status: Former Tobacco user Tobacco use type: Cigarette Advance Directives Date on File: 08/18/23 service: No Current occupational status: retired Review of Systems Const Reports fatigue, Denies malaise and Denies night sweats ENT Denies change in voice, Denies lip swelling, Denies mouth pain, Denies nasal congestion, Denies nasal discharge and Denies tongue swelling Card Reports chest pain, Reports dyspnea and Reports dyspnea on exertion Resp Denies change in phlegm color, Reports chest congestion, Reports cough, Denies hemoptysis, Denies excessive phlegm production, Reports dyspnea, Reports dyspnea on exertion and Reports wheezing GI Denies abdominal pain Musc Reports no additional complaints, Reports as per HPI, Reports abnormal gait, Reports arthralgias, Reports joint swelling and Reports muscle weakness Neuro Reports as per HPI and Reports abnormal gait Psych Denies no additional complaints and Reports other (hyper-sexual) Endo Reports fatigue Marco/Lymph Denies easy bleeding and Denies lymphadenopathy Aller/Immun Denies lip swelling, Denies tongue swelling and Reports wheezing Physical Exam Vital Signs: Last Vital Signs Pulse 76 02/16/24 13:17 BP 120/60 02/16/24 13:17 Pulse Ox 92 02/16/24 13:17 Oxygen Delivery Method Room Air 02/16/24 13:17 BMI result Body Mass Index 31.2 Const General: alert HEENT Head: Yes normocephalic Neck Neck: Yes normal visual inspection, Yes full ROM and Yes no lymphadenopathy Chest Chest palpation & inspection: normal inspection of the chest Resp Effort & Inspection: normal respiratory effort and prolonged expiratory phase Auscultation: rhonchi, wheezes and diminished lung sounds Cardio Rate: regular rate Rhythm: regular rhythm Heart sounds: S1 normal heart sound present and S2 normal heart sound present GI Palpation (GI): Soft to palpation and Tenderness to palpation present (GI) in the epigastrum Auscultation: normal bowel sounds Skin General skin exam: rashes and/or lesions noted Extrem General: Yes no clubbing, cyanosis or edema Assessment & Plan Assessment & Plan (1) Dyspnea on exertion: Code(s): R06.00 - Dyspnea, unspecified Category: Medical (2) COPD (chronic obstructive pulmonary disease): Comment: severe COPD Code(s): J44.9 - Chronic obstructive pulmonary disease, unspecified Category: Medical Qualifiers: COPD type: COPD with acute exacerbation Qualified Code(s): J44.1 - Chronic obstructive pulmonary disease with (acute) exacerbation (3) Pneumonitis: Code(s): J18.9 - Pneumonia, unspecified organism Category: Medical (4) Chronic respiratory failure: Code(s): J96.10 - Chronic respiratory failure, unspecified whether with hypoxia or hypercapnia Category: Medical Qualifiers: Respiratory failure complication: hypoxia Qualified Code(s): J96.11 - Chronic respiratory failure with hypoxia (5) Chest pain: Code(s): R07.9 - Chest pain, unspecified Category: Medical Qualifiers: Chest pain type: unspecified Qualified Code(s): R07.9 - Chest pain, unspecified Plan continue oxygen 2L/pulse 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 If CP persist, he needs to go to the ED. I will check his TropI, if elevated I will ask him to go to the ED F/U 2-3 months Orders: Orders XR chest 2V Today R07.9 - Chest pain, unspecified Troponin-I High Sensitivity Today R07.9 - Chest pain, unspecified Complete Blood Count Auto Diff Today R07.9 - Chest pain, unspecified Basic Metabolic Panel Today R07.9 - Chest pain, unspecified Medications: New doxycycline hyclate 100 mg PO BID 20 caps 0RF 10 days prednisone PO daily; Take 4 tabs x 3 days, then 3 tabs x 3 days, then 2 tabs daily x 3 days, then 1 tab x 3 days to complete. 30 tabs 0RF 12 days Coding Level of Care Code Tele Est Pt Level 4 (41073) Complex EM visit Add On G2211 Diagnoses Dyspnea on exertion R06.00 Chronic obstructive pulmonary disease with acute exacerbation J44.1 COPD type: COPD with acute exacerbation Pneumonitis J18.9 Chronic respiratory failure with hypoxia J96.11 Respiratory failure complication: hypoxia Chest pain, unspecified type R07.9 Chest pain type: unspecified Time Spent (min) 17
== END 2024-02-16 13:39 | disposition home or self-care (01) ==
PROVIDERS: PCP Internal Medicine; Visit Provider Hospitalist
DX: J44.1 Chronic obstructive pulmonary disease with (acute) exacerbation (principal); J18.9 Pneumonia, unspecified organism; J96.11 Chronic respiratory failure with hypoxia; R07.9 Chest pain, unspecified
CPT/HCPCS: 99214; G2211

== ENCOUNTER 2024-02-23 14:12 | Outpatient (AMB) | payer MEDICARE, MEDICAID, SELFPAY ==
[2024-02-23 14:25] VITALS: BP 108/58; PULSE 78; BMI 30.5
--- NOTE | 2024-02-23 14:25 | MHC.OFFVIS ---
Vital Signs 02/23/24 14:25 Height 5 ft 3 in Weight 171 lb 15.369 oz BMI 30.5 BP 108/58 L Blood Pressure Location Lt brachial Position Sitting Pulse 78 Pulse Source Pulse Oximeter Intake Visit Reasons: [id number] Allergies ibuprofen Allergy (Mild, Verified 02/16/24 13:20) Gastrointestinal Upset Medication List - Last Reconciled 02/23/24 by Rachel Hernandez NP acetaminophen 975 mg (3 x 325 mg) PO Q6H albuterol sulfate 2.5 mg inhalation Q6H PRN albuterol sulfate 90 mcg/actuation 2 puffs inhalation QID PRN amlodipine 5 mg PO DAILY apixaban (Eliquis) 5 mg PO BID aspirin 81 mg PO DAILY atenolol 25 mg PO DAILY doxycycline hyclate 100 mg PO BID 10 days fluticasone propionate 50 mcg/actuation 1 spray intranasal DAILY PRN bqfsnefzjdp-nnrwjevuk-txwnqluk 100-62.5-25 mcg (Trelegy Ellipta) 1 ea inhalation DAILY 30 days furosemide 20 mg PO DAILY gabapentin 200 mg PO TID isosorbide mononitrate ER 60 mg PO DAILY lidocaine 4% (Lidocaine Pain Relief) 1 patch See Protocol transdermal DAILY montelukast 10 mg PO DAILY 30 days nebulizers As directed oxycodone-acetaminophen 5-325 mg 1 tab PO QID PRN Oxygen Home Use As directed pantoprazole (Protonix) 20 mg PO DAILY@0630 prednisone 40 mg (2 x 20 mg) PO DAILY prednisone PO daily; Take 4 tabs x 3 days, then 3 tabs x 3 days, then 2 tabs daily x 3 days, then 1 tab x 3 days to complete. 12 days HPI Comments Details: 83-year-old male presents today for a follow-up. He had a TAVR on 01/04/2024. Unfortunately after discharge he ended up with DVTs. Currently on Eliquis for them. About 2 weeks ago he was having some sharp pains on his left side. It occurred 3 [address]. They occurred at rest. First episode was about 20 minutes. He did not inform anyone until he has seen pulmonology. He reports since the procedure his breathing has improved greatly. He states he had an echocardiogram this morning for post TAVR. [facility] Medical History Presence of prosthetic heart valve Aortic stenosis Bacteriuria Congestive heart disease Chronic lung disease Chronic respiratory failure Pre-op chest exam Inferior [place] Pneumonitis Pulmonary nodules BPH (benign prostatic hyperplasia) COPD (chronic obstructive pulmonary disease) Pneumonia HTN (hypertension) Surgical History S/P cardiac catheterization History of carpal tunnel surgery of right wrist Hx of cardiac cath Family History Mother CAD (coronary artery disease) Heart attack Father HTN (hypertension) Brother H/O heart bypass surgery Sister Afib Social History Household Members: Spouse Housing: House Do you presently have visiting nurse or other home services: Yes Alcohol intake: never Patient Tobacco Use Status: Former Tobacco user Tobacco use type: Cigarette Advance Directives Date on File: 08/18/23 service: No Current occupational status: retired Review of Systems Const Denies weakness ENT Denies dizziness Card Denies chest pain, Denies chest pain with activity, Denies syncope, Denies rapid heart rate, Denies pedal edema, Denies edema, Denies leg edema, Denies lightheadedness, Denies palpitations, Denies dyspnea, Denies dyspnea on exertion and Denies orthopnea Resp Denies cough, Denies dyspnea and Denies dyspnea on exertion GI Denies hematochezia and Denies change in stool character Musc Denies abnormal gait, Denies muscle cramps, Denies muscle weakness, Denies numbness, Denies radiating pain into limb and Denies tingling Neuro Denies abnormal gait, Denies dizziness, Denies syncope, Denies numbness, Denies tingling and Denies weakness Endo Denies palpitations Physical Exam Vital Signs: Last Vital Signs Pulse 78 02/23/24 14:25 BP 108/58 L 02/23/24 14:25 BMI result Body Mass Index 30.5 Const General: healthy appearing and no acute distress Orientation/consciousness: patient oriented x3 HEENT Head: Yes normal to inspection Eyes General: appearance normal, both eyes and all related structures Neck Neck: Yes normal visual inspection Chest Chest palpation & inspection: normal inspection of the chest Resp Effort & Inspection: normal respiratory effort Auscultation: clear to auscultation bilaterally and diminished lung sounds bilateral in the lower lung shukla Cardio Jugular venous distension: no JVD Palpation: normal PMI Rate: regular rate Rhythm: regular rhythm Heart sounds: S1 normal heart sound present, S2 normal heart sound present, no click, no gallops, no murmurs and no rubs GI Inspection: Yes normal to inspection Palpation (GI): Soft to palpation Skin General skin exam: no rashes or lesions noted Neuro General: patient oriented x3 Extrem General: Yes normal to inspection Psych Appearance: grossly normal Assessment & Plan Assessment & Plan (1) Presence of prosthetic heart valve: Comment: 01/04/2024 with Cordelia Garcia, & John Lee. Transcatheter aortic valve replacement using [right] common femoral arterial access and [26] mm bioprosthetic Sapien3 Ultra valve Code(s): Z95.2 - Presence of prosthetic heart valve Category: Medical (2) Chest pain: Code(s): R07.9 - Chest pain, unspecified Category: Medical Qualifiers: Chest pain type: unspecified Qualified Code(s): R07.9 - Chest pain, unspecified Plan Patient had echocardiogram this morning. Follows up with Cardiac surgery on 02/26/2024. We will request the records. Patient is agreeable to cardiac rehab. We will discuss with Dr. Wilson regarding chest discomforts if related to procedure. Patient understands he needs to inform someone of discomforts or seek emergency care. Orders: Orders Cardiac Rehab 02/23/24 Z95.2 - Presence of prosthetic heart valve Coding Level of Care Code Est Pt Level 3 (31896) Diagnoses Presence of prosthetic heart valve Z95.2 Chest pain, unspecified type R07.9 Chest pain type: unspecified
== END 2024-02-23 15:00 | disposition home or self-care (01) ==
PROVIDERS: PCP Internal Medicine; Visit Provider Nurse Practitioner
DX: Z95.2 Presence of prosthetic heart valve (principal); R07.9 Chest pain, unspecified
CPT/HCPCS: 99213

== ENCOUNTER → 2024-02-23 14:12 | Outpatient (BNVA) | payer MEDICARE, MEDICAID, SELFPAY | PROVIDERS: PCP Internal Medicine; Visit Provider Nurse Practitioner | DX: R07.9 Chest pain, unspecified (principal); Z98.890 Other specified postprocedural states; Z95.2 Presence of prosthetic heart valve | CPT/HCPCS: 99212 ==

== ENCOUNTER 2024-03-25 15:14 | Outpatient (REF) | payer MEDICARE, MEDICAID, SELFPAY | END 2024-03-25 15:15 | disposition home or self-care (01) | LOC: HO.LAB 15:14 | PROVIDERS: PCP Internal Medicine | DX: N39.0 Urinary tract infection, site not specified (principal) | CPT/HCPCS: 81003; 99202 ==

== ENCOUNTER 2024-03-25 15:14 | Outpatient (AMB) | payer MEDICARE, MEDICAID, SELFPAY ==
--- NOTE | 2024-03-25 15:37 | MHC.OFFWIV ---
Intake Vital Signs 03/25/24 15:48 Height 5 ft 3 in Weight 179 lb BMI 31.7 BP 100/62 Blood Pressure Location Rt brachial Position Sitting Pulse 63 Pulse Source Pulse Oximeter Pulse Oximetry (%) 93 Oxygen Delivery Method Room Air Intake Visit Reasons: EP UTI? Intake Note: Patient here for lower back pain and foul smelling urine that has been present for about 1 week. Patient Tobacco Use Status: Former Tobacco user Allergies ibuprofen Allergy (Mild, Verified 03/25/24 15:49) Gastrointestinal Upset Do you need a note to return to daycare/school/sports/work: No HPI HPI Comments History of Present Illness Details Patient is an 83-year-old male complaining of a few days foul-smelling odor and low back pain. He denies any burning with urination, increased frequency of urination, blood in his urine or fevers. He denies a history of kidney stones. [facility] Medical History Presence of prosthetic heart valve Aortic stenosis Bacteriuria Congestive heart disease Chronic lung disease Chronic respiratory failure Pre-op chest exam Inferior [place] Pneumonitis Pulmonary nodules BPH (benign prostatic hyperplasia) COPD (chronic obstructive pulmonary disease) Pneumonia HTN (hypertension) Surgical History S/P cardiac catheterization History of carpal tunnel surgery of right wrist Hx of cardiac cath Family History Mother CAD (coronary artery disease) Heart attack Father HTN (hypertension) Brother H/O heart bypass surgery Sister Afib Social History Household Members: Spouse Housing: House Do you presently have visiting nurse or other home services: Yes Alcohol intake: never Patient Tobacco Use Status: Former Tobacco user Tobacco use type: Cigarette Advance Directives Date on File: 08/18/23 service: No Current occupational status: retired Review of Systems Const All systems reviewed & are unremarkable except as noted in HPI and below Physical Exam Vital Signs: Last Vital Signs Pulse 63 03/25/24 15:48 BP 100/62 03/25/24 15:48 Pulse Ox 93 03/25/24 15:48 Oxygen Delivery Method Room Air 03/25/24 15:48 BMI result Body Mass Index 31.7 Const General: cooperative, healthy appearing, comfortable and no acute distress Orientation/consciousness: patient oriented x3 Limitations: ambulation with walker HEENT Head: Yes normal to inspection Ears: hearing grossly normal bilaterally General nose exam: Normal external nose present Face and sinus: Yes normal facial exam Neck Neck: Yes normal visual inspection, Yes trachea midline and Yes supple Resp Effort & Inspection: normal respiratory effort and able to speak in complete sentences Skin General skin exam: no rashes or lesions noted Neuro General: patient oriented x3 Psych Appearance: grossly normal Speech and movement: Normal speech and movement present Attitude: cooperative Thought process: Normal thought process present Insight: Good insight present (Psych) Judgement: Good judgement present (Psych) Results AMB Urinalysis, Automated UA Leukoctes 0 Amanda/uL Last Edit by Abel Langford CCM on 03/25/24 15:55 UA Nitrite Negative Last Edit by Abel Langford [facility] on 03/25/24 15:55 UA Urobilinogen 0.2 mg/dL Last Edit by Abel Langford [facility] on 03/25/24 15:55 UA Protein 0 mg/dL Last Edit by Abel Langford [facility] on 03/25/24 15:55 UA pH 6.0 Last Edit by Abel Langford [facility] on 03/25/24 15:55 UA Blood 0 Osbaldo/uL Last Edit by Abel Langford [facility] on 03/25/24 15:55 UA Specific [place] 1.020 Last Edit by Abel Langford [facility] on 03/25/24 15:55 UA Ketone Negative Last Edit by Abel Langford [facility] on 03/25/24 15:55 UA Bilirubin 0 mg/dL Last Edit by Abel Langford [facility] on 03/25/24 15:55 UA Glucose 0 mg/dL Last Edit by Abel Langford [facility] on 03/25/24 15:55 Results Reviewed Results Reviewed: Laboratory Last Values Urine pH (Auto) 6.0 03/25/24 15:54 Specific [place] (Auto) 1.020 03/25/24 15:54 Urine Protein (Auto) 0 mg/dL 03/25/24 15:54 Glucose (UA)(Auto) 0 mg/dL 03/25/24 15:54 Urine Ketones (Auto) Negative 03/25/24 15:54 Urine Blood (Auto) 0 Osbaldo/uL 03/25/24 15:54 Urine Nitrite (Auto) Negative 03/25/24 15:54 Urine Bilirubin (Auto) 0 mg/dL 03/25/24 15:54 Urine Urobilinogen (Auto) 0.2 mg/dL 03/25/24 15:54 Leukocyte Esterase (Auto) 0 Amanda/uL 03/25/24 15:54 Assessment & Plan Assessment & Plan (1) UTI (urinary tract infection): Code(s): N39.0 - Urinary tract infection, site not specified Qualifiers: Urinary tract infection type: acute cystitis Hematuria presence: without hematuria Plan: UA is negative for infection however I will treat the patient based on his symptoms. The patient's urine sample was thrown out but I did order a culture and we gave him the supplies so he will drop off a sample in the morning to be cultured. Patient does have a follow up with his PCP already in 3 days. Recommended if he develops worsening pain, blood in his urine or develops a fever that he go to the emergency department. Patient was educated to stop his Protonix while taking cefuroxime. He said it should be fine to stop the medication and will take Tums as needed Plan see above Orders: Orders AMB Urinalysis Automated Today Z13.9 - Encounter for screening, unspecified Urine Culture Today N39.0 - Urinary tract infection, site not specified Medications: New cefuroxime axetil 500 mg PO Q12H 10 tabs 0RF Coding Level of Care Code New Pt Level 3 (16299) Diagnoses UTI (urinary tract infection) N39.0 Urinary tract infection type: acute cystitis Hematuria presence: without hematuria
[2024-03-25 15:48] VITALS: BP 100/62; PULSE 63; O2SAT 93; BMI 31.7
== END 2024-03-25 16:19 | disposition home or self-care (01) ==
PROVIDERS: PCP Internal Medicine; Visit Provider Physician Assistant
DX: Z13.9 Encounter for screening, unspecified (principal); N39.0 Urinary tract infection, site not specified

== ENCOUNTER 2024-03-26 12:05 | Outpatient (REF) | payer MEDICARE, MEDICAID, SELFPAY | END 2024-03-26 12:06 | disposition home or self-care (01) | LOC: HO.HMGCLNP 12:05 | PROVIDERS: PCP Internal Medicine; Visit Provider Physician Assistant | DX: N39.0 Urinary tract infection, site not specified (principal) | CPT/HCPCS: 87086 ==

== ENCOUNTER 2024-04-03 07:07 | Inpatient (IN) | payer MEDICARE, MEDICAID, SELFPAY ==
[2024-04-03] VITALS (9 sets, daily range): BP systolic 113–140; BP diastolic 57–78; PULSE 93–113; RESP 15–24; TEMP 36.7–37.4; O2SAT 90–97; BMI 29.2; BMI 29.3
--- NOTE | ~2024-04-03 | US_ITS ---
EXAMINATION: US TRIPLEX LOWER EXTREMITY, BILATERAL CLINICAL INFORMATION: Swelling COMPARISON: 2020 TECHNIQUE: Color-flow triplex imaging with spectral analysis and compression Doppler were performed on the bilateral lower extremities. FINDINGS: Respiratory variation, normal compression and augmented flow are noted throughout the bilateral lower extremities. The visualized common femoral vein, superficial femoral vein, profunda femoral vein, popliteal vein and midcalf peroneal and posterior tibial venous segments show no evidence of deep venous thrombosis bilaterally. There is no Bianchi's cyst. US/US venous duplex LE BI IMPRESSION: No evidence of deep venous thrombosis involving the bilateral lower extremities. Electronically signed by: Jayson Campbell MD 04/03/2024 08:30 AM INDRA
--- NOTE | ~2024-04-03 | XR_ITS ---
EXAMINATION: XR CHEST CLINICAL INFORMATION: Shortness of breath COMPARISON: Chest 12/18/2023. TECHNIQUE: Frontal view of the chest was obtained. FINDINGS: The lungs are expanded and clear. The heart size and vascularity is normal. There is mild spondylosis dorsal spine. No aggressive lytic or sclerotic process seen. XR/XR chest 1V IMPRESSION: Unremarkable chest exam. Electronically signed by: Osvaldo Muniz MD 04/03/2024 08:35 AM INDRA
--- NOTE | ~2024-04-03 | CT_ITS ---
EXAMINATION: CT ABDOMEN AND PELVIS WITHOUT CONTRAST CLINICAL INFORMATION: Abdominal pain COMPARISON: CT dated December 18, 2023 TECHNIQUE: Multidetector volumetric imaging was performed from the superior aspect of the liver through the pubic symphysis. Sagittal and coronal reformatted images were obtained on the technologist's workstation. This CT examination was performed using dose optimization techniques as appropriate, variously including the following: *Automated exposure control *Adjustment of mA and/or kV according to patient size (this includes techniques or standardized protocols for targeted exams where dose is matched to indication/reason for exam; i.e. extremities or head) *Use of iterative reconstruction technique DLP: 795 mGy-cm FINDINGS: Inadequate evaluation of the intra-abdominal organs and vascular structures due to lack of IV contrast. Submitted for interpretation on April 05, 2024. Subsegmental atelectasis, lung bases. Metallic stent at the aortic valve. Calcified plaques in the coronary arteries and thoracic aorta. Trace of pericardial effusion.. LIVER, GALLBLADDER, AND BILIARY TREE: Liver measures 16 cm. There are few scattered less than 1 cm fluid density lesions. No intrahepatic biliary ductal dilatation. Status post cholecystectomy likely laparoscopic. Common bile duct measures 4 mm PANCREAS: There is a 1.7 cm round fluid density centered in the uncinate process/head junction. No main pancreatic ductal dilatation. No peripancreatic fluid collections. Reduced volume, pancreatic parenchyma. SPLEEN: Measures 8 cm. ADRENAL GLANDS: 1 cm low density measuring 10 Hounsfield units centered in the right adrenal gland. No nodular lesions, left adrenal gland. KIDNEYS AND URETERS: Right kidney: 3.1 cm exophytic partially calcified fluid density lesion in the anterior lateral midportion/lower pole junction. 2 cm exophytic fluid density lesion that medial aspect of the upper pole. No hydronephrosis. No nephrolithiasis.. Left kidney: 4.2 cm exophytic fluid density in the medial upper pole. 2.8 cm exophytic fluid density in the lateral lower pole. No hydronephrosis. No nephrolithiasis.. BLADDER: Fluid-filled. GASTROINTESTINAL TRACT: Abundant stool. Numerous diverticula throughout the large intestine. No intestinal obstruction pattern. No ascites. No pneumoperitoneum. No pneumatosis intestinalis. Appendix is normal. ABDOMINAL WALL: Diastases abdominal rectus muscles and the small fat-containing hernia, umbilical. LYMPH NODES: Nonspecific prominent mesenteric and retroperitoneal lymph nodes. VASCULAR: Mixed plaques throughout the abdominal aorta wall and iliac arteries. Tortuosity, abdominal aorta and iliac arteries. No gross aneurysm, abdominal aorta. Mixed plaques at the origin of the mesenteric arteries, main renal arteries and throughout the splenic artery PELVIC VISCERA: Prostate gland is not enlarged and limited on its evaluation. OSSEOUS STRUCTURES: There is being hardening artifact secondary to bilateral hip prosthesis. Multilevel thoracolumbar spondylosis. Grade 1 anterolisthesis L5-S1 on a degenerative basis. Status post posterior fusion through metallic transpedicle screws at L4 and S1, bilaterally. CT/CT abdomen pelvis wo IV con IMPRESSION: Diverticular disease, large intestine. 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 1.7 cm cystic lesion, head/uncinate process of the pancreas. Lipid rich adenoma, right adrenal gland. Cystic lesions, hepatic. Coronary artery disease and atherosclerosis disease. Multilevel thoracolumbar spondylosis. Fleischner guidelines were followed. Electronically signed by: Norris Hilton MD 04/05/2024 08:01 AM INDRA
--- NOTE | 2024-04-03 07:15 | ED_ITS ---
HPI - SOB/Dyspnea General Chief Complaint: Dyspnea Stated Complaint: SOB X 8 HRS Time Seen by Provider: 04/03/24 07:09 Source: patient, EMS and old records reviewed Mode of arrival: EMS Limitations: no limitations History of Present Illness ED Provider: DR. Pate HPI Narrative: 83-year-old male with past medical history significant for CAD, NSTEMI, chronic hypoxemic respiratory failure on 2-1/2 L supplemental oxygen, HFpEF, severe aortic stenosis, HTN, BPH, who presented to the emergency department for 1 day not feeling well and decreased p.o. intake did not take his medication for the last 4 days, patient also was complaining of shortness of breath. Patient was given DuoNeb by EMS report improvement after. On arrival patient feeling generalized weakness, shortness of breath, no chest pain. Related Data Home Medications ?Medication ?Instructions ?Recorded ?Confirmed atenolol 25 mg tablet 25 mg PO DAILY 06/19/20 02/23/24 aspirin 81 mg tablet,delayed 81 mg PO DAILY 11/19/20 02/23/24 release pantoprazole 20 mg tablet,delayed 20 mg PO DAILY@0630 11/19/20 02/23/24 release (Protonix) fluticasone propionate 50 1 spray intranasal DAILY PRN 02/12/21 02/23/24 mcg/actuation nasal Congestion spray,suspension oxycodone-acetaminophen 5 mg-325 1 tab PO QID PRN Pain (Scale Score 02/12/21 02/23/24 mg tablet 1-3) nebulizers 10/15/22 02/23/24 Oxygen Home Use 01/08/23 02/23/24 gabapentin 100 mg capsule 200 mg PO TID 04/10/23 02/23/24 albuterol sulfate 2.5 mg/3 mL 2.5 mg inhalation Q6H PRN for 08/17/23 02/23/24 (0.083 %) solution for nebulization dyspnea albuterol sulfate 90 mcg/actuation 2 puff inhalation QID PRN SOB 12/18/23 02/23/24 aerosol inhaler amlodipine 5 mg tablet 5 mg PO DAILY 12/18/23 02/23/24 furosemide 20 mg tablet 20 mg PO DAILY 02/16/24 02/23/24 apixaban 5 mg tablet (Eliquis) 5 mg PO BID 02/23/24 02/23/24 Previous Rx's ?Medication ?Instructions ?Recorded montelukast 10 mg tablet 10 mg PO DAILY 30 days #30 tabs 06/26/20 fluticasone fur. 100 mcg-umeclid 1 ea inhalation DAILY 30 days #60 08/13/23 62.5 mcg-vilant 25 mcg ea inhalat.powder (Trelegy Ellipta) isosorbide mononitrate 60 mg 60 mg PO DAILY #90 tabs 12/14/23 tablet,extended release 24 hr acetaminophen 325 mg tablet 975 mg (3 x 325 mg) PO Q6H #1 tab 12/20/23 lidocaine 4 % topical patch 1 patch transdermal DAILY #1 ea 12/20/23 (Lidocaine Pain Relief) cefuroxime axetil 500 mg tablet 500 mg PO Q12H #10 tabs 03/25/24 Allergies Allergy/AdvReac Type Severity Reaction Status Date / Time ibuprofen Allergy Mild Gastrointestinal Verified 04/03/24 07:15 Upset Review of Systems 2 Review of Systems: All other systems are reviewed and are negative Constitutional: Reports as per HPI and Reports no additional constitutional complaints Eyes: Reports as per HPI and Reports no additional eye complaints Reports system reviewed and no additional complaints, except as documented Cardiovascular: Reports as per HPI and Reports no additional cardiovascular complaints Respiratory: Reports as per HPI and Reports no additional respiratory complaints Gastrointestinal: Reports as per HPI and Reports no additional gastrointestinal complaints Genitourinary: Reports no additional female genitourinary complaints Musculoskeletal: Reports no additional musculoskeletal complaints Skin/Breast: Reports system reviewed and no additional complaints, except as docu Psychiatric: Reports no additional psychiatric complaints Endocrine: Reports no additional endocrine complaints Hematologic/Lymphatic: Reports no additional hematologic/lymphatic complaints Allergic/Immunologic: Reports no additional allergic/immunologic complaints Reports system reviewed and no additional complaints, except as documented and Reports Abnormal speech present [facility] Past Medical History Medical History Presence of prosthetic heart valve Aortic stenosis Bacteriuria Congestive heart disease Chronic lung disease Chronic respiratory failure Pre-op chest exam Inferior [place] Pneumonitis Pulmonary nodules BPH (benign prostatic hyperplasia) COPD (chronic obstructive pulmonary disease) Pneumonia HTN (hypertension) Surgical History S/P cardiac catheterization History of carpal tunnel surgery of right wrist Hx of cardiac cath Family History Family History Mother CAD (coronary artery disease) Heart attack Father HTN (hypertension) Brother H/O heart bypass surgery Sister Afib Social History Social History Household Members: Spouse Housing: House Do you presently have visiting nurse or other home services: Yes Alcohol intake: never Patient Tobacco Use Status: Former Tobacco user Tobacco use type: Cigarette Advance Directives: No Advance Directives Information Provided: No Advance Directives Date on File: 08/18/23 Do you have a plan to hurt others: No Plan service: No Current occupational status: retired Physical Exam 2 Vital Signs: Vital Signs: Last Vital Signs Temp 98.1 F 04/03/24 08:56 Pulse 96 04/03/24 09:53 Resp 23 H 04/03/24 09:53 BP 118/65 04/03/24 08:56 Pulse Ox 95 04/03/24 08:56 O2 Del Method Nasal Cannula 04/03/24 08:56 O2 Flow Rate 2 04/03/24 08:56 Oxygen Flow Rate 2 04/03/24 07:11 BMI result Body Mass Index 29.2 Vital signs have been reviewed and appear to be correct. Blood pressure elevated. Heart rate normal. Respiratory rate normal. Temperature normal. Oxygen saturation normal. Appearance: Alert. Oriented X3. No acute distress. Head: Normal external exam. Normocephalic. Atraumatic. No Govea signs noted. No raccoon eyes noted Eyes: PERRLA. EOMI. Conjunctiva and sclera normal. Eyelids normal. ENT: TM's Normal. Pharynx normal. Uvula midline. Moist mucous membranes. No trismus noted. No drooling noted. No muffled voice noted. Neck: Normal inspection. Neck supple. FROM. No adenopathy. Thyroid Normal. No meningeal signs. No neck mass noted. CVS: Normal heart rate and rhythm. Heart sound normal. No murmurs noted. Pulses normal throughout. Respiratory: No respiratory distress. Painless inspiration. Breath sounds normal. Diffuse expiratory wheezing, prolonged expiration, bilateral basilar rales, No accessory muscle usage noted or decreased air movement noted. Abdomen: Soft and nontender. Bowel sounds normal in all 4 quadrants. No distention noted. No organomegaly noted. No visible injury noted. Back: No CVA tenderness. Full range of motion noted. Skin: Skin warm and dry. Normal skin color. Normal skin turgor. No rashes/lesions/lacerations noted. Extremities: Right lower extremity swelling patient stated this is chronic. Neuro: Oriented X 3. Cranial nerve exam: II-XII are grossly intact No motor deficit. No sensory deficit. Reflexes normal. Course Reevaluation(s) Reevaluation #1: 83-year-old male with history of chronic hypoxemic respiratory failure and COPD with CHF came in not feeling well for the last 3-4 days not taking his medication exam is consistent with worsening of CHF with rales bilaterally require Lasix and nitro in the emergency department, patient also received bronchodilator, magnesium in the ED with improvement of the breathing. Will admit to the hospitalist service for further management of COPD/CHF. Right lower extremities more swollen than the left lower extremity patient had venous ultrasound revealed no DVT. Time: 12:02 Medications Administered Discontinued Medications Generic Name Dose Route Start Last Admin Trade Name Freq PRN Reason Stop Dose Admin Albuterol Sulfate 2.5 mg/ 0 mg 04/03/24 09:52 04/03/24 09:58 Albuterol/Ipratropium 3 ml INHALE 04/03/24 09:53 5 dose ONCE ONE Administration Furosemide 40 mg 04/03/24 07:18 04/03/24 08:13 Furosemide 40 Mg/4 Ml Vial IVPUSH 04/03/24 07:19 40 mg ONCE ONE Administration Protocol Magnesium Sulfate 2 gm in 50 mls @ 25 mls/hr 04/03/24 09:34 04/03/24 10:01 Magnesium Sulfate/H2o IV 04/03/24 11:33 25 mls/hr ONCE ONE Administration Methylprednisolone Sodium Succinate 125 mg 04/03/24 09:34 04/03/24 10:01 Methylprednisolone Sod Succ 125 Mg/2 Ml Vial IVPUSH 04/03/24 09:35 125 mg ONCE ONE Administration Nitroglycerin 0.5 inch 04/03/24 07:18 04/03/24 08:13 Nitroglycerin 2 % Oint 1 Gm Packet TRANSDERMA 04/03/24 07:19 0.5 inch ONCE ONE Administration Medical Decision Making Differential Diagnosis Differential Diagnoses: The differential diagnosis associated with the presentation includes ( COPD exacerbation,CHF, pneumonia, pneumothorax, pleural effusion, electrolyte derangement, severe anemia, Lower extremity DVT.) Admission/Observation Consideration of admission/observation: Escalation of care including admission/observation considered Consult Healthcare Provider Management of the patient was discussed with: Hospitalist ( Sade Hamilton) Lab Data MDM Lab Attestation statement: I reviewed the patient's lab results. 04/03/24 07:48 04/03/24 07:48 Labs: Lab Results 04/03/24 04/03/24 Range/Units 07:48 09:02 WBC 10.5 (4.8-10.8) X10*3/uL RBC 4.71 (4.60-5.80) X10*6/uL Hgb 13.6 L (14.0-18.0) g/dl Hct 41.5 L (42.0-52.0) % MCV 88.1 (80.0-98.0) fL MCH 28.9 (27.0-33.0) pg MCHC 32.8 (31.0-36.0) g/dl RDW 13.8 (11.0-16.0) % Plt Count 297 D (160-400) X10*3/uL MPV 9.4 (9.4-12.4) fL Immature Gran % (Auto) 0.3 (0.0-0.4) % Neut % (Auto) 52.8 (45-73) % Lymph % (Auto) 30.2 (20-40) % [place] % (Auto) 13.9 H (2-11) % Eos % (Auto) 1.6 (0-4) % Baso % (Auto) 1.2 (0-2) % Lymph # (Auto) 3.2 (1.2-4.9) X10*3/uL [place] # (Auto) 1.5 H (0.1-1.2) X10*3/uL Eos # (Auto) 0.2 (0.0-0.4) X10*3/uL Baso # (Auto) 0.1 (0.0-0.2) X10*3/uL Abs Immat Gran (auto) 0.03 (0.00-0.03) X10*3/uL Absolute Neuts (auto) 5.5 (2.0-8.3) x10*3/uL Absolute Nucleated RBC 0.000 (0.0-0.012) X10*3/uL Nucleated RBC % (auto) 0.0 (0.0-0.2) /100WBC PT 12.6 H (10.9-12.4) SEC INR 1.1 (0.9-1.1) Sodium 146 H (135-145) mmol/L Potassium 3.6 (3.3-5.1) mmol/L Chloride 106 (96-108) mmol/L Carbon Dioxide 25 (22-29) mmol/L Anion Gap 19 (12-20) BUN 8 L (9-16) mg/dL Creatinine 0.81 (0.5-1.4) mg/dL Estim Creat Clear Calc 67.2 Estimated GFR > 60 Random Glucose 104 (60-115) mg/dL Lactic Acid 1.1 (0.5-2.0) mmol/L Calcium 10.2 D (8.4-10.2) mg/dL Total Bilirubin 0.5 (0.0-1.0) mg/dL Direct Bilirubin 0.3 (0.0-0.5) mg/dL AST 22 (5-37) U/L ALT 11 (0-40) U/L Alkaline Phosphatase 73 (39-117) U/L Troponin I High Sens 38.3 H (<3.5-35.0) ng/L B-Natriuretic Peptide 82 (<100) pg/mL Total Protein 7.5 (6.5-8.0) g/dL Albumin 3.9 (3.5-5.0) g/dL Lipase 21 (8-78) U/L Urine Color Yellow Urine Appearance Clear Urine pH 6.5 (5.0-9.0) Ur Specific [place] 1.010 (1.005-1.025) Urine Protein Negative (Neg-Trace) mg/dL Urine Glucose (UA) Negative (Negative) mg/dL Urine Ketones 15 (Negative) mg/dL Urine Blood Negative (Negative) Urine Nitrite Negative (Negative) Ur Leukocyte Esterase Negative (Negative) Influenza Type A (PCR) NEGATIVE (Negative) Influenza Type B (PCR) NEGATIVE (Negative) RSV RNA Qual (PCR) NEGATIVE (Negative) SARS-CoV-2 RNA (RT-PCR) NEGATIVE (Negative) Independent Interpretation I performed an independent interpretation of an: Plain X-Ray ( Chest: Unremarkable chest exam.) and Ultrasound ( Lower extremity venous ultrasound: No DVT.) Radiology Impression Discussion of test interpretation with radiology: I have reviewed the radiologist's reading. Chronic Conditions Patient?s care impacted by: Other ( COPD, CHF.) Discharge Plan Discharge Clinical Impression: COPD with acute exacerbation, Acute exacerbation of CHF (congestive heart failure) Patient Disposition: Admitted As Inpatient Prescriptions: No Action isosorbide mononitrate 60 mg tablet extended release 24 hr 60 mg PO DAILY Qty: 90 3RF atenolol 25 mg Tablet 25 mg PO DAILY albuterol sulfate 2.5 mg /3 mL (0.083 %) solution for nebulization 2.5 mg inhalation Q6H PRN (Reason: for dyspnea) albuterol sulfate 90 mcg/actuation HFA aerosol inhaler 2 puff inhalation QID PRN (Reason: SOB) amlodipine 5 mg tablet 5 mg PO DAILY lidocaine [Lidocaine Pain Relief] 4 % Adhesive Patch,Medicated 1 patch transdermal DAILY Qty: 1 0RF Protocol: Apply to: Apply to: Left lower back acetaminophen 325 mg Tablet 975 mg PO Q6H Qty: 1 0RF montelukast 10 mg tablet 10 mg PO DAILY 30 Days Qty: 30 11RF aspirin 81 mg tablet,delayed release (DR/EC) 81 mg PO DAILY pantoprazole [Protonix] 20 mg tablet,delayed release (DR/EC) 20 mg PO DAILY@0630 gabapentin 100 mg capsule 200 mg PO TID oxycodone-acetaminophen 5-325 mg tablet 1 tab PO QID PRN (Reason: Pain (Scale Score 1-3)) fluticasone propionate 50 mcg/actuation spray,suspension 1 spray intranasal DAILY PRN (Reason: Congestion) (DME) nebulizers Misc See Rx Instructions .Route Rx Instructions: As directed (DME) Oxygen Home Use Kit See Rx Instructions .Route Rx Instructions: As directed furosemide 20 mg tablet 20 mg PO DAILY Eliquis 5 mg tablet 5 mg PO BID Trelegy Ellipta 100-62.5-25 mcg blister with device 1 ea inhalation DAILY 30 Days Qty: 60 11RF cefuroxime axetil 500 mg tablet 500 mg PO Q12H Qty: 10 0RF Print Language: Estonian
--- NOTE | 2024-04-03 07:19 | ECG_ITS ---
Test Reason : SOB Blood Pressure : / mmHG Vent. Rate : 100 BPM Atrial Rate : 100 BPM P-R Int : 170 ms QRS Dur : 088 ms QT Int : 396 ms P-R-T Axes : 038 049 003 degrees QTc Int : 510 ms Normal sinus rhythm Possible Inferior infarct , age undetermined Prolonged QT Abnormal ECG When compared with ECG of 18-DEC-2023 05:31, Premature atrial complexes are no longer Present Nonspecific T wave abnormality no longer evident in Lateral leads Referred By: Moshe Pate Electronically Signed By:SAMRA GORDON MD
[2024-04-03 07:55] LABS: MANUAL DIFF FLAG NO
[2024-04-03 07:57] LABS: Basophils Absolute Auto 0.1 X10*3/uL (0.0-0.2); Basophils Percent Auto 1.2 % (0-2); Eosinophils Absolute Auto 0.2 X10*3/uL (0.0-0.4); Eosinophils Percent Auto 1.6 % (0-4); Hematocrit 41.5 % (42.0-52.0); Hemoglobin 13.6 g/dl (14.0-18.0); Imm Gran Abs Auto 0.03 X10*3/uL (0.00-0.03); Imm Gran Pct Auto 0.3 % (0.0-0.4); Lymphocytes Absolute Auto 3.2 X10*3/uL (1.2-4.9); Lymphocytes Percent Auto 30.2 % (20-40); Mean Corpuscular HGB Conc 32.8 g/dl (31.0-36.0); Mean Corpuscular Hemoglobin 28.9 pg (27.0-33.0); Mean Corpuscular Volume 88.1 fL (80.0-98.0); Mean Platelet Volume 9.4 fL (9.4-12.4); Monocytes Absolute Auto 1.5 X10*3/uL (0.1-1.2); Monocytes Percent Auto 13.9 % (2-11); Neutrophils Absolute Auto 5.5 x10*3/uL (2.0-8.3); Neutrophils Percent Auto 52.8 % (45-73); Platelet Count 297 X10*3/uL (160-400); Red Blood Count 4.71 X10*6/uL (4.60-5.80); Red Cell Distribution Width 13.8 % (11.0-16.0); White Blood Count 10.5 X10*3/uL (4.8-10.8)
[2024-04-03 08:04] LABS: INTERNATIONAL NORM RATIO 1.1 (0.9-1.1); Prothrombin Time 12.6 SEC (10.9-12.4)
[2024-04-03 08:13] LABS: Lactic Acid 1.1 mmol/L (0.5-2.0)
[2024-04-03] MEDS: Furosemide 40 MG/4 ML VIAL IVPUSH (08:13)
[2024-04-03] MEDS: Nitroglycerin 2 % Oint 1 GM Packet 0.5 INCH TRANSDERMA (08:13)
[2024-04-03 08:15] LABS: Alanine Aminotransferase 11 U/L (0-40); Albumin Level 3.9 g/dL (3.5-5.0); Alkaline Phosphatase 73 U/L (39-117); Anion Gap 19 (12-20); Aspartate Amino Transferase 22 U/L (5-37); Bilirubin Direct 0.3 mg/dL (0.0-0.5); Bilirubin Total 0.5 mg/dL (0.0-1.0); Blood Urea Nitrogen 8 mg/dL (9-16); Calcium 10.2 mg/dL (8.4-10.2); Carbon Dioxide 25 mmol/L (22-29); Chloride 106 mmol/L (96-108); Creatinine Clr Calc Pharmacy 67.2; Estimated Glomerular Filt Rate > 60; Glucose Random 104 mg/dL (60-115); Lipase 21 U/L (8-78); Potassium 3.6 mmol/L (3.3-5.1); Sodium 146 mmol/L (135-145); Total Protein 7.5 g/dL (6.5-8.0)
[2024-04-03 08:22] LABS: Troponin-I High Sensitivity 38.3 ng/L (<3.5-35.0)
[2024-04-03 08:24] LABS: B Type Natriuretic Peptide 82 pg/mL (<100)
[2024-04-03 08:36] LABS: Influenza A PCR NEGATIVE (Negative); Influenza B PCR NEGATIVE (Negative); Resp Syncy Virus RNA Qual PCR NEGATIVE (Negative); SARS COV2 PCR INHOUSE NEGATIVE (Negative)
[2024-04-03 09:20] LABS: Appearance Urine Clear; Color Urine Yellow; Glucose Urine UA Negative (Negative); Leukocyte Esterase Urine Negative (Negative); Nitrite Urine Negative (Negative); PH 6.5 (5.0-9.0); Urine Blood Negative (Negative); Urine Ketones 15 mg/dL (Negative); Urine Protein Negative (Neg-Trace)
--- NOTE | 2024-04-03 09:30 | MHC.EDTECH ---
Clean patient was able to put a [place] cath on patient nurse aware
[2024-04-03] MEDS: Albuterol Sulfate 2.5 MG, Albuterol/Iprat 2.5/0.5MG 3 ML 3 ML INHALE (09:58)
[2024-04-03] MEDS: methylPREDNISolone Sod Succ 125 MG/2 ML VIAL IVPUSH (10:01)
[2024-04-03] MEDS: Magnesium Sulfate/H2O 2 GM/50 ML PIGGYBACK IV (10:01)
--- NOTE | 2024-04-03 11:46 | P.HPHOSP_ITS ---
History of Present Illness Date of Service: 04/03/24 Attending physician on admission: Sammy Segura Chief Complaint: SOB, generalized weakness Pt is an 83-year-old male with a PMH significant for?CAD w/hx of NSTEMI, COPD w/chronic hypoxemic respiratory failure on 2L home O2 at baseline, HFpEF, severe aortic stenosis s/p TAVR 01/04/2024, HTN, BPH, and hx of polio with chronic LUE and LLE weakness who presents to the ED with?SOB and difficulty breathing since yesterday. Patient reports was feeling ill with most of the day yesterday with generalized weakness, headache, and reduced p.o. intake, but became significantly SOB last night and again this which prompted his visit to the ED. Occasional cough intermittently productive of whitish sputum. Patient's daughter who was at bedside reports right lower extremity seems more swollen than normal. No measurable fever, chronic chills. No chest pain/pressure, palpitations. No nausea, vomiting, abdominal pain. Patient also notes that he did not take any of his medications yesterday or this morning. In the ED pt was tachycardic up to 102, tachypneic up to 23, and satting at 95% home O2. Labs were significant for sodium of 146, and initial troponin 38.3, otherwise grossly unremarkable and baseline for patient. No leukocytosis. Stable H& H. renal function baseline. Hepatic function baseline. BNP WNL at 82. Lactic acid WNL. UA negative for UTI. Tested negative for flu, RSV CXR was unremarkable. EKG demonstrated normal sinus rhythm with QTc 510. Pt was treated with Lasix 40 mg IV, nitroglycerin, DuoNeb, Mag sulfate, and Solu- Medrol. Pt will be admitted to the hospital for treatment and further evaluation of acute respiratory distress in the setting of COPD exacerbation. Review of Systems 2 Review of Systems: Negative except for that which is stated in the HPI Yes all other systems are reviewed and are negative [facility] Medical History Presence of prosthetic heart valve Aortic stenosis Bacteriuria Congestive heart disease Chronic lung disease Chronic respiratory failure Pre-op chest exam Inferior DC Pneumonitis Pulmonary nodules BPH (benign prostatic hyperplasia) COPD (chronic obstructive pulmonary disease) Pneumonia HTN (hypertension) Family History Mother CAD (coronary artery disease) Heart attack Father HTN (hypertension) Brother H/O heart bypass surgery Sister Afib Surgical History S/P cardiac catheterization History of carpal tunnel surgery of right wrist Hx of cardiac cath Social History Household Members: Spouse Housing: House Do you presently have visiting nurse or other home services: Yes Alcohol intake: never Patient Tobacco Use Status: Former Tobacco user Tobacco use type: Cigarette Advance Directives: No Advance Directives Information Provided: No Advance Directives Date on File: 08/18/23 Do you have a plan to hurt others: No Plan service: No Current occupational status: retired Ischemia Cares Allergies Allergy/AdvReac Type Severity Reaction Status Date / Time ibuprofen Allergy Mild Gastrointestinal Verified 04/03/24 07:15 Upset Home Medications ?Medication ?Instructions ?Recorded ?Confirmed ?Last Taken ?Type atenolol 25 mg tablet 25 mg PO DAILY 06/19/20 02/23/24 12/17/23 History aspirin 81 mg tablet,delayed 81 mg PO DAILY 11/19/20 02/23/24 12/17/23 History release pantoprazole 20 mg tablet,delayed 20 mg PO DAILY@0630 11/19/20 02/23/24 12/17/23 History release (Protonix) fluticasone propionate 50 1 spray intranasal DAILY PRN 02/12/21 02/23/24 12/17/23 History mcg/actuation nasal Congestion spray,suspension oxycodone-acetaminophen 5 mg-325 1 tab PO QID PRN Pain (Scale Score 02/12/21 02/23/24 12/17/23 History mg tablet 1-3) nebulizers 10/15/22 02/23/24 Unknown History Oxygen Home Use 01/08/23 02/23/24 Unknown History gabapentin 100 mg capsule 200 mg PO TID 04/10/23 02/23/24 12/17/23 History albuterol sulfate 2.5 mg/3 mL 2.5 mg inhalation Q6H PRN for 08/17/23 02/23/24 12/17/23 History (0.083 %) solution for nebulization dyspnea albuterol sulfate 90 mcg/actuation 2 puff inhalation QID PRN SOB 12/18/23 02/23/24 12/17/23 History aerosol inhaler amlodipine 5 mg tablet 5 mg PO DAILY 12/18/23 02/23/24 12/17/23 History furosemide 20 mg tablet 20 mg PO DAILY 02/16/24 02/23/24 Unknown History apixaban 5 mg tablet (Eliquis) 5 mg PO BID 02/23/24 02/23/24 Unknown History Physical Exam 2 Vital Signs and Narrative: Vital Signs: Last Vital Signs Temp 98.1 F 04/03/24 08:56 Pulse 96 04/03/24 09:53 Resp 23 H 04/03/24 09:53 BP 118/65 04/03/24 08:56 Pulse Ox 95 04/03/24 08:56 O2 Del Method Nasal Cannula 04/03/24 08:56 O2 Flow Rate 2 04/03/24 08:56 Oxygen Flow Rate 2 04/03/24 07:11 BMI result Body Mass Index 29.2 General: AOx3, in no acute distress Resp: Diffuse wheezing and rhonchi bilaterally, some diaphoretic breathing CVS: S1, S2, regular rhythm, tachycardic GI: +BS, NT, no distention Skin: Warm, dry Neuro: Cranial nerves II-XII grossly intact bilaterally. Motor grossly intact bilaterally Extremities: No appreciable edema. Psych: Appropriate affect Results Labs 04/03/24 07:48 04/03/24 07:48 Labs: Laboratory Results - last 24 hr 04/03/24 04/03/24 07:48 09:02 MCV 88.1 MCH 28.9 MCHC 32.8 RDW 13.8 Plt Count 297 D MPV 9.4 Immature Gran % (Auto) 0.3 Neut % (Auto) 52.8 Lymph % (Auto) 30.2 Hood % (Auto) 13.9 H Eos % (Auto) 1.6 Baso % (Auto) 1.2 Lymph # (Auto) 3.2 [place] # (Auto) 1.5 H Eos # (Auto) 0.2 Baso # (Auto) 0.1 Abs Immat Gran (auto) 0.03 Absolute Neuts (auto) 5.5 Absolute Nucleated RBC 0.000 Nucleated RBC % (auto) 0.0 PT 12.6 H INR 1.1 Anion Gap 19 Estim Creat Clear Calc 67.2 Estimated GFR > 60 Random Glucose 104 Lactic Acid 1.1 Calcium 10.2 D Total Bilirubin 0.5 Direct Bilirubin 0.3 AST 22 ALT 11 Alkaline Phosphatase 73 Troponin I High Sens 38.3 H B-Natriuretic Peptide 82 Total Protein 7.5 Albumin 3.9 Lipase 21 Urine Color Yellow Urine Appearance Clear Urine pH 6.5 Ur Specific [place] 1.010 Urine Protein Negative Urine Glucose (UA) Negative Urine Ketones 15 Urine Blood Negative Urine Nitrite Negative Ur Leukocyte Esterase Negative Influenza Type A (PCR) NEGATIVE Influenza Type B (PCR) NEGATIVE RSV RNA Qual (PCR) NEGATIVE SARS-CoV-2 RNA (RT-PCR) NEGATIVE Imaging Radiologist's Impressions: Impressions Venous Duplex 04/03/24 07:52 IMPRESSION: No evidence of deep venous thrombosis involving the bilateral lower extremities. Electronically signed by: Jayson Campbell MD 04/03/2024 08:30 AM EST RP Chest X-Ray 04/03/24 08:10 IMPRESSION: Unremarkable chest exam. Electronically signed by: Osvaldo Muniz MD 04/03/2024 08:35 AM EST RP Assessment and Plan (1) COPD with acute exacerbation: Status: Acute Plan Pt is an 83-year-old male with a PMH significant for?CAD w/hx of NSTEMI, COPD w/chronic hypoxemic respiratory failure on 2L home O2 at baseline, HFpEF, severe aortic stenosis s/p TAVR 01/04/2024, HTN, BPH, and hx of polio with chronic LUE and LLE weakness who presents to the ED with?SOB and difficulty breathing since yesterday. Pt will be admitted to the hospital for treatment and further evaluation of acute respiratory distress in the setting of COPD exacerbation. Acute respiratory distress in the setting of acute COPD exacerbation Patient with increased SOB, RMA, weakness, wheezing and rhonchi on auscultation Little concern for pneumonia: No fever or leukocytosis, mostly nonproductive intermittent cough, CXR negative for consolidation No sepsis: Tachycardia secondary to albuterol RSV/flu/COVID negative Will check respiratory panel Treat with DuoNebs, Solu-Medrol, benzonatate Doxycycline for pleiotropic effects, started 04/03/2024 No acute hypoxia: pt satting at 95% on home 2L O2 Monitor respiratory status HFpEF Does not appear to be in acute exacerbation, pt looks euvolemic No pitting edema, right US doppler negative, BNP WNL, CXR without pulmonary edema or pleural effusions Patient received IV Lasix in the ED Will continue home furosemide CAD Continue aspirin, isosorbide mononitrate HTN Continue amlodipine, atenolol Peripheral neuropathy Continue gabapentin GERD Continue PPI Full Code Attending:?Dr. Segura DVT Prophylaxis: On Eliquis Due to increased work of breathing as well as singifiant wheezing and rhonchi upon auscultation despite multiple treatments in the ED, patient will require hospitalization for at least 2 overnight for treatment of acute respiratory distress in the setting of COPD exacerbation that require administration of breathing treatments, IV steroids, and close monitoring of respiratory status. Quality Stroke Does the patient have a stroke diagnosis?: No VTE Prior VTE?: No VTE Risk Level:: Medical - moderate - high VTE Device Contraindication: Treatment Not Indicated VTE Drug Contraindication: N/A - Med Ordered
--- NOTE | 2024-04-03 12:37 | PC.NURSE ---
Pt. repositioned for comfort. Pillow applied under pt.'s bottom. Pt. is clean and dry- no incontinence. ANIL Grant at bedside at this time doing pt.'s admission.
[2024-04-03] MEDS: Doxycycline Hyclate 100 MG in 0.9 % Sodium Chloride 250 ML 166.67 MG IV (14:50)
--- NOTE | 2024-04-03 15:25 | PHA.MEDREC ---
Addendum entered by Sapna Garcia RPh 04/03/24 15:34: Reviewed by [facility] Original Note: Pharmacy Consult ? Medication Reconciliation Pharmacy has completed the medication reconciliation. Spoke with patient and family member at bedside. Patient reports furosemide is now BID due to increased swelling (one in the morning and one at 2 PM). Patient was unsure about his amlodipine dose, used what was most recently filled on claims. He reports he gets samples of Trelegy from his doctor. He is not sure when he last took his eliquis, he cannot remember if he took it yesterday morning or with the rest of his medications on Thursday. He is no longer on any antibiotics or prednisone.
[2024-04-03] MEDS: Albuterol/Iprat 2.5/0.5MG 3 ML AMPUL.NEB INHALE ×2 (15:51→18:49)
[2024-04-03 16:43] LABS: Troponin-I High Sensitivity 42.3 ng/L (<3.5-35.0)
[2024-04-03] MEDS: Apixaban 5 MG TABLET PO (17:40)
[2024-04-03] MEDS: atenoloL 25 MG TABLET PO (17:41)
[2024-04-03] MEDS: Gabapentin 100 MG CAPSULE 200 MG PO ×2 (17:42→22:57)
[2024-04-03] MEDS: Aspirin Enteric Coated 81 MG TABLET.DR PO (17:42)
[2024-04-03] MEDS: methylPREDNISolone Sod Succ 40 MG/ML VIAL IVPUSH (19:56)
[2024-04-03] MEDS: Acetaminophen 325 MG TABLET 650 MG PO (19:59)
[2024-04-03] MEDS: 0.9 % Sodium Chloride Flush 3 ML SYRINGE IVFLUSH (20:00)
[2024-04-03] MEDS: Benzonatate 100 MG CAPSULE PO (20:01)
[2024-04-04] VITALS (8 sets, daily range): BP systolic 116–145; BP diastolic 59–76; PULSE 67–97; RESP 16–18; TEMP 36–36.6; O2SAT 94–96
[2024-04-04] MEDS: Doxycycline Hyclate 100 MG in 0.9 % Sodium Chloride 250 ML 166.67 MG IV ×2 (01:52→15:06)
[2024-04-04] MEDS: Omeprazole 20 MG CAPSULE.DR PO (05:56)
[2024-04-04 07:26] LABS: Anion Gap 12 (12-20); Blood Urea Nitrogen 19 mg/dL (9-16); Calcium 9.3 mg/dL (8.4-10.2); Carbon Dioxide 28 mmol/L (22-29); Chloride 103 mmol/L (96-108); Creatinine Clr Calc Pharmacy 58.6; Estimated Glomerular Filt Rate > 60; Glucose Random 200 mg/dL (60-115); Sodium 139 mmol/L (135-145)
[2024-04-04] MEDS: Isosorbide Mononitrate 60 MG TAB.ER.24H PO (07:46)
[2024-04-04] MEDS: amLODIPine Besylate 10 MG TABLET PO (07:50)
[2024-04-04] MEDS: Aspirin Enteric Coated 81 MG TABLET.DR PO (07:50)
[2024-04-04] MEDS: Gabapentin 100 MG CAPSULE 200 MG PO ×3 (07:50→19:12)
[2024-04-04] MEDS: Montelukast Sodium 10 MG TABLET PO (07:50)
[2024-04-04] MEDS: Furosemide 20 MG TABLET PO ×2 (07:50→15:05)
[2024-04-04] MEDS: Apixaban 5 MG TABLET PO ×2 (07:51→19:13)
[2024-04-04] MEDS: atenoloL 25 MG TABLET PO (07:51)
[2024-04-04] MEDS: methylPREDNISolone Sod Succ 40 MG/ML VIAL IVPUSH ×2 (07:51→19:13)
[2024-04-04] MEDS: Albuterol/Iprat 2.5/0.5MG 3 ML AMPUL.NEB INHALE ×4 (08:13→18:57)
--- NOTE | 2024-04-04 08:51 | HO.PM.IMPN ---
Subjective Subjective Date of Service: 04/04/24 Interval History: sob Physical Exam Vital Signs: Vital Signs: Last Vital Signs Temp 97.7 F 04/04/24 08:04 Pulse 74 04/04/24 08:13 Resp 18 04/04/24 08:13 BP 145/76 H 04/04/24 08:04 Pulse Ox 95 04/04/24 08:04 O2 Del Method Nasal Cannula 04/04/24 08:04 O2 Flow Rate 3 04/04/24 08:04 Oxygen Flow Rate 2 04/03/24 07:11 BMI result Body Mass Index 29.3 General: AO X 3, no acute distress Resp: diminished and wheezing bilateral, no accessory muscles used CVS: S1,S2,RRR GI: soft, non tender, non distended Neuro: motor grossly intact, alert Psych: appropriate affect, appropriate insight Objective Data Active Medications Acetaminophen (Acetaminophen 325 Mg Tablet) 650 mg PO Q6H PRN PRN Reason: Pain, Mild (Pain Scale 1-3), fever or headache Last Admin: 04/03/24 19:59 Dose: 650 mg Documented By: YAS Albuterol/Ipratropium (Albuterol/Iprat 2.5/0.5mg 3 Ml Ampul.Neb) 3 ml INHALE RQ4H WHILE AWAKE [facility] Last Admin: 04/04/24 08:13 Dose: 3 ml Documented By: ARLEY Albuterol/Ipratropium (Albuterol/Iprat 2.5/0.5mg 3 Ml Ampul.Neb) 3 ml INHALE RQ4H WHILE AWAKE PRN PRN Reason: Shortness of Breath/Wheezing Amlodipine Besylate (Amlodipine Besylate 10 Mg Tablet) 10 mg PO DAILY [facility]; Protocol Last Admin: 04/04/24 07:50 Dose: 10 mg Documented By: CEZAR Apixaban (Apixaban 5 Mg Tablet) 5 mg PO BID [facility] Last Admin: 04/04/24 07:51 Dose: 5 mg Documented By: CEZAR Aspirin (Aspirin Enteric Coated 81 Mg Tablet.) 81 mg PO DAILY [facility] Last Admin: 04/04/24 07:50 Dose: 81 mg Documented By: CEZAR Atenolol (Atenolol 25 Mg Tablet) 25 mg PO DAILY [facility]; Protocol Last Admin: 04/04/24 07:51 Dose: 25 mg Documented By: CEZAR Benzonatate (Benzonatate 100 Mg Capsule) 100 mg PO TID PRN PRN Reason: Cough Last Admin: 04/03/24 20:01 Dose: 100 mg Documented By: YAS Calcium Carbonate (Calcium Carbonate 750 Mg Tab.Chew) 750 mg PO Q4H PRN PRN Reason: Heartburn Fluticasone Propionate (Fluticasone Propionate Nasal 16 Gm [place]) 1 spray NOSTRIL-B DAILY [facility] Fluticasone/Umeclidinium/Vilanterol (Fluticasone/Umeclidinium/Vilanterol 100/62.5/25 Blst.W.Dev) 1 puff INHALE RDAILY [facility] Furosemide (Furosemide 20 Mg Tablet) 20 mg PO BID@0900,1400 [facility]; Protocol Last Admin: 04/04/24 07:50 Dose: 20 mg Documented By: CEZAR Gabapentin (Gabapentin 100 Mg Capsule) 200 mg PO TID [facility] Last Admin: 04/04/24 07:50 Dose: 200 mg Documented By: CEZAR Doxycycline Hyclate 100 mg/ (Sodium Chloride) 250 mls @ 166.67 mls/hr IV Q12H [facility] Last Infusion: 04/04/24 03:42 Dose: Infused Documented By: YAS Influenza Virus Vaccine (Flu Vacc [id number](6mos Up)/Pf 0.5 Ml Syringe) 0.5 ml IM .ONCE ONE Stop: 04/04/24 09:01 Last Admin: 04/04/24 07:59 Dose: Not Given Documented By: CEZAR Non-Admin Reason: Patient Refused Isosorbide Mononitrate (Isosorbide Mononitrate 60 Mg Tab.Er.24h) 60 mg PO DAILY [facility]; Protocol Last Admin: 04/04/24 07:46 Dose: 60 mg Documented By: CEZAR Magnesium Hydroxide (Milk Of Magnesia 30 Ml Oral.Susp) 30 ml PO DAILY PRN PRN Reason: Constipation Melatonin (Melatonin 3 Mg Tablet) 6 mg PO BEDTIME PRN PRN Reason: Insomnia Methylprednisolone Sodium Succinate (Methylprednisolone Sod Succ 40 Mg/Ml Vial) 40 mg IVPUSH Q12H [facility] Last Admin: 04/04/24 07:51 Dose: 40 mg Documented By: CEZAR Montelukast Sodium (Montelukast Sodium 10 Mg Tablet) 10 mg PO DAILY [facility] Last Admin: 04/04/24 07:50 Dose: 10 mg Documented By: CEZAR Omeprazole (Omeprazole 20 Mg Capsule.Dr) 20 mg PO DAILY@0630 [facility] Last Admin: 04/04/24 05:56 Dose: 20 mg Documented By: YAS Oxycodone HCl (Oxycodone Hcl Immed Release 5 Mg Tablet) 5 mg PO QID PRN PRN Reason: Pain, Moderate(Pain Scale 4-6) Sodium Chloride (0.9 % Sodium Chloride Flush 3 Ml Syringe) 3 ml IVFLUSH QSHIFT [facility] Last Admin: 04/03/24 20:00 Dose: 3 ml Documented By: YAS Labs 04/03/24 07:48 04/04/24 07:00 Labs: Laboratory Results - last 24 hr 04/03/24 04/03/24 04/04/24 09:02 16:01 07:00 Anion Gap 12 Estim Creat Clear Calc 58.6 Estimated GFR > 60 Random Glucose 200 H Calcium 9.3 D Troponin I High Sens 42.3 H Urine Color Yellow Urine Appearance Clear Urine pH 6.5 Ur Specific [place] 1.010 Urine Protein Negative Urine Glucose (UA) Negative Urine Ketones 15 Urine Blood Negative Urine Nitrite Negative Ur Leukocyte Esterase Negative Assessment and Plan (1) Dyspnea on exertion: Status: Acute Plan 83M PMH coronary disease, COPD with chronic hypoxic respiratory failure on 2 L home O2, chronic diastolic CHF, severe aortic stenosis status post TAVR 01/04/2024, hypertension, BPH, history of polio with chronic left upper extremity and left lower extremity weakness presented with shortness of breath. Chronic hypoxic respiratory failure and COPD with acute decompensation Continue steroids, DuoNebs, doxycycline Chronic diastolic CHF Continue p.o. Lasix CAD Eliquis, aspirin severe s/p TAVR 01/04/24 continue asa, eliquis Hypertension Imdur, amlodipine DVT prophylaxis on Eliquis Full Code reason for continued hospitalization: Still short of breath and wheezy Quality Stroke Does the patient have a stroke diagnosis?: No VTE Prior VTE?: No VTE Risk Level:: Medical - moderate - high VTE Device Contraindication: Treatment Not Indicated VTE Drug Contraindication: N/A - Med Ordered
[2024-04-04] MEDS: oxyCODONE HCl Immed Release 5 MG TABLET PO (09:58)
[2024-04-04] MEDS: 0.9 % Sodium Chloride Flush 3 ML SYRINGE IVFLUSH (09:59)
--- NOTE | 2024-04-04 11:06 | MHC.CM.PN ---
PT LIVES WITH AND HER 2 SISTERS HE HAS HOME 02 AND [facility] PT HAS OWN RIDE HOME
[2024-04-04 14:24] LABS: Adenovirus PCR Not Detected (Not Detect.); Bordetella parapertussis PCR Not Detected (Not Detect.); Bordetella pertussis PCR Not Detected (Not Detect.); Chlamydia pneumoniae PCR Not Detected (Not Detect.); Coronavirus 229E PCR Not Detected (Not Detect.); Coronavirus HKU1 PCR Not Detected (Not Detect.); Coronavirus NL63 PCR Not Detected (Not Detect.); Coronavirus OC43 PCR Not Detected (Not Detect.); Human metapneumovirus PCR Not Detected (Not Detect.); Influenza A PCR Not Detected (Not Detect.); Influenza B PCR Not Detected (Not Detect.); Mycoplasma pneumoniae PCR Not Detected (Not Detect.); Parainfluenza 1 PCR Not Detected (Not Detect.); Parainfluenza 2 PCR Not Detected (Not Detect.); Parainfluenza 3 PCR Not Detected (Not Detect.); Parainfluenza 4 PCR Not Detected (Not Detect.); RSV PCR Not Detected (Not Detect.); Rhino/Enterovirus PCR Not Detected (Not Detect.)
[2024-04-04 14:56] LABS: SARS-CoV-2 PCR Not Detected (Not Detect.)
[2024-04-04] MEDS: Acetaminophen 325 MG TABLET 650 MG PO (19:12)
[2024-04-04] MEDS: Benzonatate 100 MG CAPSULE PO (19:13)
[2024-04-05] VITALS (8 sets, daily range): BP systolic 102–127; BP diastolic 55–61; PULSE 84–100; RESP 15–19; TEMP 36–36.5; O2SAT 94–99
[2024-04-05] MEDS: 0.9 % Sodium Chloride Flush 3 ML SYRINGE IVFLUSH ×4 (00:24→22:52)
[2024-04-05] MEDS: Doxycycline Hyclate 100 MG in 0.9 % Sodium Chloride 250 ML 166.67 MG IV ×2 (02:58→14:24)
[2024-04-05] MEDS: Omeprazole 20 MG CAPSULE.DR PO (05:44)
[2024-04-05 07:03] LABS: Hematocrit 36.6 % (42.0-52.0); Hemoglobin 11.7 g/dl (14.0-18.0); Mean Corpuscular Hemoglobin 28.3 pg (27.0-33.0); Mean Corpuscular Volume 88.4 fL (80.0-98.0); Mean Platelet Volume 10.1 fL (9.4-12.4); Platelet Count 284 X10*3/uL (160-400); Red Blood Count 4.14 X10*6/uL (4.60-5.80); Red Cell Distribution Width 14.3 % (11.0-16.0); White Blood Count 19.9 X10*3/uL (4.8-10.8)
[2024-04-05 07:26] LABS: Anion Gap 12 (12-20); Blood Urea Nitrogen 26 mg/dL (9-16); Calcium 8.8 mg/dL (8.4-10.2); Carbon Dioxide 28 mmol/L (22-29); Chloride 105 mmol/L (96-108); Creatinine Clr Calc Pharmacy 53.9; Estimated Glomerular Filt Rate > 60; Glucose Fasting 188 mg/dL (60-99); Potassium 3.9 mmol/L (3.3-5.1); Sodium 141 mmol/L (135-145)
[2024-04-05] MEDS: Albuterol/Iprat 2.5/0.5MG 3 ML AMPUL.NEB INHALE ×4 (08:14→20:12)
[2024-04-05] MEDS: Fluticasone/Umeclidinium/Vilanterol 100/62.5/25 BLST.W.DEV 1 PUFF INHALE (08:14)
--- NOTE | 2024-04-05 08:29 | P.PNIM_ITS ---
Subjective Subjective Date of Service: 04/05/24 Interval History: mild improvement in sob Physical Exam 2 Vital Signs: Vital Signs: Last Vital Signs Temp 97.7 F 04/05/24 08:00 Pulse 84 04/05/24 08:16 Resp 15 04/05/24 08:16 BP 111/61 04/05/24 08:00 Pulse Ox 94 04/05/24 08:00 O2 Del Method Nasal Cannula 04/05/24 08:00 O2 Flow Rate 2.0 04/05/24 08:00 Oxygen Flow Rate 2 04/03/24 07:11 BMI result Body Mass Index 29.3 General: AO X 3, no acute distress Resp: diminished and wheezing bilateral, no accessory muscles used CVS: S1,S2,RRR GI: soft, non tender, non distended Neuro: motor grossly intact, alert Psych: appropriate affect, appropriate insight Objective Data Active Medications Acetaminophen (Acetaminophen 325 Mg Tablet) 650 mg PO Q6H PRN PRN Reason: Pain, Mild (Pain Scale 1-3), fever or headache Last Admin: 04/04/24 19:12 Dose: 650 mg Documented By: YAS Albuterol/Ipratropium (Albuterol/Iprat 2.5/0.5mg 3 Ml Ampul.Neb) 3 ml INHALE RQ4H WHILE AWAKE [facility] Last Admin: 04/05/24 08:14 Dose: 3 ml Documented By: ARLEY Albuterol/Ipratropium (Albuterol/Iprat 2.5/0.5mg 3 Ml Ampul.Neb) 3 ml INHALE RQ4H WHILE AWAKE PRN PRN Reason: Shortness of Breath/Wheezing Amlodipine Besylate (Amlodipine Besylate 10 Mg Tablet) 10 mg PO DAILY [facility]; Protocol Last Admin: 04/04/24 07:50 Dose: 10 mg Documented By: CEZAR Apixaban (Apixaban 5 Mg Tablet) 5 mg PO BID [facility] Last Admin: 04/04/24 19:13 Dose: 5 mg Documented By: YAS Aspirin (Aspirin Enteric Coated 81 Mg Tablet.) 81 mg PO DAILY [facility] Last Admin: 04/04/24 07:50 Dose: 81 mg Documented By: CEZAR Atenolol (Atenolol 25 Mg Tablet) 25 mg PO DAILY [facility]; Protocol Last Admin: 04/04/24 07:51 Dose: 25 mg Documented By: CEZAR Benzonatate (Benzonatate 100 Mg Capsule) 100 mg PO TID PRN PRN Reason: Cough Last Admin: 04/04/24 19:13 Dose: 100 mg Documented By: YAS Calcium Carbonate (Calcium Carbonate 750 Mg Tab.Chew) 750 mg PO Q4H PRN PRN Reason: Heartburn Fluticasone Propionate (Fluticasone Propionate Nasal 16 Gm [place]) 1 spray NOSTRIL-B DAILY [facility] Last Admin: 04/04/24 11:15 Dose: Not Given Documented By: CEZAR Non-Admin Reason: Med Not Available Fluticasone/Umeclidinium/Vilanterol (Fluticasone/Umeclidinium/Vilanterol 100/62.5/25 Blst.W.Dev) 1 puff INHALE RDAILY [facility] Last Admin: 04/05/24 08:14 Dose: 1 puff Documented By: ARLEY Furosemide (Furosemide 20 Mg Tablet) 20 mg PO BID@0900,1400 [facility]; Protocol Last Admin: 04/04/24 15:05 Dose: 20 mg Documented By: CEZAR Gabapentin (Gabapentin 100 Mg Capsule) 200 mg PO TID [facility] Last Admin: 04/04/24 19:12 Dose: 200 mg Documented By: YAS Doxycycline Hyclate 100 mg/ (Sodium Chloride) 250 mls @ 166.67 mls/hr IV Q12H [facility] Last Infusion: 04/05/24 05:13 Dose: Infused Documented By: CARLY Isosorbide Mononitrate (Isosorbide Mononitrate 60 Mg Tab.Er.24h) 60 mg PO DAILY [facility]; Protocol Last Admin: 04/04/24 07:46 Dose: 60 mg Documented By: CEZAR Magnesium Hydroxide (Milk Of Magnesia 30 Ml Oral.Susp) 30 ml PO DAILY PRN PRN Reason: Constipation Melatonin (Melatonin 3 Mg Tablet) 6 mg PO BEDTIME PRN PRN Reason: Insomnia Methylprednisolone Sodium Succinate (Methylprednisolone Sod Succ 40 Mg/Ml Vial) 40 mg IVPUSH Q12H [facility] Last Admin: 04/04/24 19:13 Dose: 40 mg Documented By: YAS Montelukast Sodium (Montelukast Sodium 10 Mg Tablet) 10 mg PO DAILY [facility] Last Admin: 04/04/24 07:50 Dose: 10 mg Documented By: CEZAR Morphine Sulfate (Morphine Sulfate 2 Mg/Ml Cartridge) 2 mg IVPUSH Q3H PRN; Protocol PRN Reason: Pain, Severe (Pain Scale 7-10) Omeprazole (Omeprazole 20 Mg Capsule.Dr) 20 mg PO DAILY@0630 [facility] Last Admin: 04/05/24 05:44 Dose: 20 mg Documented By: CARLY Oxycodone HCl (Oxycodone Hcl Immed Release 5 Mg Tablet) 5 mg PO QID PRN PRN Reason: Pain, Moderate(Pain Scale 4-6) Last Admin: 04/04/24 09:58 Dose: 5 mg Documented By: MOJGAN Sodium Chloride (0.9 % Sodium Chloride Flush 3 Ml Syringe) 3 ml IVFLUSH QSHIFT [facility] Last Admin: 04/05/24 00:24 Dose: 3 ml Documented By: CARLY Labs 04/05/24 05:45 04/05/24 05:45 Labs: Laboratory Results - last 24 hr 04/03/24 04/05/24 15:19 05:45 MCV 88.4 MCH 28.3 MCHC 32.0 RDW 14.3 Plt Count 284 MPV 10.1 Absolute Nucleated RBC 0.000 Nucleated RBC % (auto) 0.0 Anion Gap 12 Estim Creat Clear Calc 53.9 Estimated GFR > 60 Fasting Glucose 188 H Calcium 8.8 Respiratory Panel Faria See Note Adenovirus (Rapid PCR) Not Detected B.pert (TEM-PCR) Not Detected B.parapertussis DNA PCR Not Detected C. pneumoniae DNA (PCR) Not Detected Coronavirus OC43 (PCR) Not Detected Coronavirus HKU1 (PCR) Not Detected Coronavirus 229E (PCR) Not Detected Coronavirus NL63 (PCR) Not Detected Human Metapneumovir PCR Not Detected Influenza A (RT-PCR) Not Detected Influenza B (RT-PCR) Not Detected M. pneumoniae (PCR) Not Detected Parainfluenza 1 (PCR) Not Detected Parainfluenza 2 (PCR) Not Detected Parainfluenza 3 (PCR) Not Detected Parainfluenza 4 (PCR) Not Detected RSV (PCR) Not Detected Entero/Rhino (PCR) Not Detected SARS-CoV-2 RNA (RT-PCR) Not Detected Microbiology Microbiology Results: Microbiology 04/03/24 07:45 Blood Culture - Preliminary Blood - Venous No growth after 24 hours. 04/03/24 07:48 Blood Culture - Preliminary Blood - Venous No growth after 24 hours. 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 Chronic hypoxic respiratory failure and COPD with acute decompensation Continue steroids, DuoNebs, doxycycline leukocytosis due to steroids Chronic diastolic CHF Continue p.o. Lasix CAD Eliquis, aspirin severe s/p TAVR 01/04/24 continue asa, eliquis (3-6 month total) Hypertension Imdur, amlodipine DVT prophylaxis on Eliquis Full Code reason for continued hospitalization: Still short of breath and wheezy Quality Stroke Does the patient have a stroke diagnosis?: No VTE Prior VTE?: No VTE Risk Level:: Medical - moderate - high VTE Device Contraindication: Treatment Not Indicated VTE Drug Contraindication: N/A - Med Ordered
[2024-04-05] MEDS: Aspirin Enteric Coated 81 MG TABLET.DR PO (10:10)
[2024-04-05] MEDS: Furosemide 20 MG TABLET PO ×2 (10:10→14:25)
[2024-04-05] MEDS: Gabapentin 100 MG CAPSULE 200 MG PO ×3 (10:10→22:51)
[2024-04-05] MEDS: Apixaban 5 MG TABLET PO ×2 (10:10→22:51)
[2024-04-05] MEDS: amLODIPine Besylate 10 MG TABLET PO (10:11)
[2024-04-05] MEDS: atenoloL 25 MG TABLET PO (10:11)
[2024-04-05] MEDS: methylPREDNISolone Sod Succ 40 MG/ML VIAL IVPUSH ×2 (10:12→22:53)
[2024-04-05] MEDS: Montelukast Sodium 10 MG TABLET PO (10:12)
[2024-04-05] MEDS: Isosorbide Mononitrate 60 MG TAB.ER.24H PO (10:12)
[2024-04-05] MEDS: Fluticasone Propionate Nasal 16 GM SPRAY 1 SPRAY NOSTRIL-B (10:14)
[2024-04-05] MEDS: Benzonatate 100 MG CAPSULE PO ×2 (16:18→22:51)
[2024-04-06] MEDS: Doxycycline Hyclate 100 MG in 0.9 % Sodium Chloride 250 ML 166.67 MG IV (02:46)
[2024-04-06] MEDS: ondansetron HCL 4 MG/2 ML VIAL IVPUSH (03:25)
[2024-04-06 03:28] VITALS: BP 140/63; PULSE 84; RESP 18; TEMP 36.9; O2SAT 95
[2024-04-06] MEDS: methylPREDNISolone Sod Succ 40 MG/ML VIAL IVPUSH (07:39)
[2024-04-06] MEDS: 0.9 % Sodium Chloride Flush 3 ML SYRINGE IVFLUSH (07:40)
[2024-04-06] MEDS: Isosorbide Mononitrate 60 MG TAB.ER.24H PO (07:41)
[2024-04-06] MEDS: atenoloL 25 MG TABLET PO (07:41)
[2024-04-06] MEDS: Omeprazole 20 MG CAPSULE.DR PO (07:42)
[2024-04-06] MEDS: Apixaban 5 MG TABLET PO (07:42)
[2024-04-06] MEDS: Aspirin Enteric Coated 81 MG TABLET.DR PO (07:42)
[2024-04-06] MEDS: Gabapentin 100 MG CAPSULE 200 MG PO ×2 (07:42→13:51)
[2024-04-06] MEDS: Montelukast Sodium 10 MG TABLET PO (07:43)
[2024-04-06] MEDS: amLODIPine Besylate 10 MG TABLET PO (07:43)
[2024-04-06] MEDS: Furosemide 20 MG TABLET PO ×2 (07:43→13:50)
[2024-04-06 07:59] VITALS: BP 137/64; PULSE 85; RESP 16; TEMP 37.1; O2SAT 96
[2024-04-06] MEDS: Fluticasone Propionate Nasal 16 GM SPRAY 1 SPRAY NOSTRIL-B (08:10)
[2024-04-06] MEDS: Fluticasone/Umeclidinium/Vilanterol 100/62.5/25 BLST.W.DEV 1 PUFF INHALE (08:19)
[2024-04-06] MEDS: Albuterol/Iprat 2.5/0.5MG 3 ML AMPUL.NEB INHALE ×2 (08:19→11:34)
[2024-04-06 08:26] VITALS: PULSE 92; RESP 20; O2SAT 96
[2024-04-06] MEDS: Milk of Magnesia 30 ML ORAL.SUSP PO (08:35)
[2024-04-06] MEDS: Acetaminophen 325 MG TABLET 650 MG PO (08:35)
[2024-04-06] MEDS: polyethylene glycoL 3350 17 GM POWD.PACK PO (10:16)
[2024-04-06 11:00] VITALS: PULSE 92
--- NOTE | 2024-04-06 11:18 | MHC.CM.PN ---
Addendum entered by Adalgisa Navas RN 04/06/24 13:09: Patient is now declining STR and prefers to go home w/ services. [facility] has accepted. Patient will dc home today, daughter to transport ~3pm. RN aware. Original Note: Per MD rounds patient medically cleared for dc. PT recommending STR. Patient has accepted a bed at [facility] pending auth.
[2024-04-06 11:36] VITALS: PULSE 82; RESP 18; O2SAT 96
[2024-04-06] MEDS: guaiFENesin LA 600 MG TAB.ER.12H PO (13:20)
--- NOTE | 2024-04-06 13:23 | W.MHC.F2F ---
Service Date Service Date: 04/06/24 Encounter Date of encounter: 04/06/24 Reasons for Services Signs and symptoms assessed: Shortness of breath/congested cough, history of coronary artery disease/arthritis Reason for half-way: CV/CP assess and/or care and medication management Reason for physical therapy: home safety and mobility Homebound: Leaving the home is medically contraindicated at this time without the asist of a device and/or another person due th the listed conditions above and below. Reason homebound: weakness related to hospital stay Certification: Based on the above findings, I certify that this patient is confined to the home and needs intermittent half-way care, physical therapy and/or speech therapy, or continues to need occupational therapy. The patient is under my care, and I have initiated the establishment of the plan of care. The patient will be followed by a physician who will periodically review the plan of care. Time Spent With Patient Time: Total time managing care of this patient today ____ minutes.
--- NOTE | 2024-04-06 13:24 | PM.DS ---
DS: Providers Provider Date of Service: 04/06/24 Date of admission: 04/03/24 13:36 Date of discharge: 04/06/24 Primary care physician: Marvin Carey MD DS: Diagnosis Discharge Diagnosis (1) Dyspnea on exertion: Status: Acute DS: Summary Hospital Course Hospital Course: History of presenting illness. Date of Service: 04/03/24 Attending physician on admission: Sammy Segura Chief Complaint: SOB, generalized weakness Pt is an 83-year-old male with a PMH significant for?CAD w/hx of NSTEMI, COPD w/chronic hypoxemic respiratory failure on 2L home O2 at baseline, HFpEF, severe aortic stenosis s/p TAVR 01/04/2024, HTN, BPH, and hx of polio with chronic LUE and LLE weakness who presents to the ED with?SOB and difficulty breathing since yesterday. Patient reports was feeling ill with most of the day yesterday with generalized weakness, headache, and reduced p.o. intake, but became significantly SOB last night and again this which prompted his visit to the ED. Occasional cough intermittently productive of whitish sputum. Patient's daughter who was at bedside reports right lower extremity seems more swollen than normal. No measurable fever, chronic chills. No chest pain/pressure, palpitations. No nausea, vomiting, abdominal pain. Patient also notes that he did not take any of his medications yesterday or this morning. In the ED pt was tachycardic up to 102, tachypneic up to 23, and satting at 95% home O2. Labs were significant for sodium of 146, and initial troponin 38.3, otherwise grossly unremarkable and baseline for patient. No leukocytosis. Stable H& H. renal function baseline. Hepatic function baseline. BNP WNL at 82. Lactic acid WNL. UA negative for UTI. Tested negative for flu, RSV CXR was unremarkable. EKG demonstrated normal sinus rhythm with QTc 510. Pt was treated with Lasix 40 mg IV, nitroglycerin, DuoNeb, Mag sulfate, and Solu-Medrol. Pt will be admitted to the hospital for treatment and further evaluation of acute respiratory distress in the setting of COPD exacerbation. 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 presented with shortness of breath and admitted with a diagnosis of Chronic hypoxic respiratory failure and COPD with acute decompensation, patient treated with IV steroids updraft treatment and doxycycline with good response clinically patient appears stable ambulating on 2 L without shortness of breath or hypoxia therefore he is being discharged home with recommendation to take prednisone tapering dose use updraft treatments scheduled 4 times a day for few days chest x-ray showed no acute infiltrate will DC doxycycline after 3 days treatment, leukocytosis likely due to steroids patient complained of abdominal pain for which a CT scan of abdomen and pelvis was obtained that showed no acute cause of abdominal pain that has since resolved. Chronic diastolic CHF no acute decompensation noted recommend to continue Lasix, in regard to hypertension, coronary artery disease and severe s/p TAVR 01/04/24 he is recommended to continue Imdur, amlodipine, asa, eliquis (3-6 month total). Time Attestation Discharge Coordination Time (in mins): 40 Quality: Safe Use of Opioids Does Pt have an Active Cancer Diagnosis on the Problem List?: No Quality: Stroke Does the patient have a stroke diagnosis?: No Physical Exam Vital Signs: Vital Signs: Last Vital Signs Temp 98.7 F 04/06/24 07:59 Pulse 82 04/06/24 11:36 Resp 18 04/06/24 11:36 BP 137/64 04/06/24 07:59 Pulse Ox 96 04/06/24 07:59 O2 Del Method Nasal Cannula 04/06/24 07:59 O2 Flow Rate 2 04/06/24 07:59 Oxygen Flow Rate 2 04/03/24 07:11 BMI result Body Mass Index 29.3 Const: Other: General: AO X 3, no acute distress Moist mucous membrane No JVD Resp: Bilateral scattered rhonchi, no accessory muscles used CVS: S1,S2,RRR GI: soft, non tender, non distended Extremities no edema Psych: appropriate affect, appropriate insight DS: Data Data Completed and Pending Labs on day of discharge: Preliminary micro results at discharge 04/03/24 07:45 Blood Culture - Preliminary Blood - Venous No growth after 48 hours. 04/03/24 07:48 Blood Culture - Preliminary Blood - Venous No growth after 48 hours. Discharge Plan Discharge Anticipated Discharge Date/Time: 04/06/24 13:12 Patient Disposition: Home Health Service Discharge Diagnosis: Acute COPD exacerbation Referrals: [facility] [Outside] - 3-5 Days ([facility] will call you to schedule PT appointments in the home.) Marvin Carey MD [Primary Care Provider] - 1 Week Discharge Medications: New guaifenesin [Mucinex] 600 mg Tablet Extended Release 12hr 600 mg PO BID Qty: 20 0RF Sore Throat (benzocaine-menth) 15-3.6 mg Lozenge 1 aure mucous membrane Q2H PRN (Reason: Sore Throat) Qty: 18 0RF prednisone 10 mg tablet 10 mg PO DIRECTED Qty: 30 0RF Rx Instructions: see taper instructions; 40 mg Daily x3 days, 30 mg daily x3 days, 20 mg daily x3 days, 10 mg daily x3 days Continued isosorbide mononitrate 60 mg tablet extended release 24 hr 60 mg PO DAILY Qty: 90 3RF atenolol 25 mg Tablet 25 mg PO DAILY albuterol sulfate 2.5 mg /3 mL (0.083 %) solution for nebulization 2.5 mg inhalation Q6H PRN (Reason: for dyspnea) amlodipine 10 mg tablet 10 mg PO DAILY acetaminophen 325 mg tablet 650 mg PO Q6H PRN (Reason: Fever Or Pain) lidocaine [Lidocaine Pain Relief] 4 % adhesive patch,medicated 1 patch transdermal DAILY PRN (Reason: Pain) Protocol: Apply to: Apply to: Left lower back albuterol sulfate 90 mcg/actuation HFA aerosol inhaler 2 puff inhalation QID PRN (Reason: SOB) montelukast 10 mg tablet 10 mg PO DAILY 30 Days Qty: 30 11RF aspirin 81 mg tablet,delayed release (DR/EC) 81 mg PO DAILY pantoprazole [Protonix] 20 mg tablet,delayed release (DR/EC) 20 mg PO DAILY@0630 gabapentin 100 mg capsule 200 mg PO TID oxycodone-acetaminophen 5-325 mg tablet 1 tab PO QID PRN (Reason: Pain (Scale Score 1-3)) fluticasone propionate 50 mcg/actuation spray,suspension 1 spray intranasal DAILY (DME) nebulizers Misc See Rx Instructions .Route Rx Instructions: As directed (DME) Oxygen Home Use Kit See Rx Instructions .Route Rx Instructions: As directed furosemide 20 mg tablet 20 mg PO BID@0900,1400 Eliquis 5 mg tablet 5 mg PO BID Ravin Escobedo 100-62.5-25 mcg blister with device 1 ea inhalation DAILY 30 Days Qty: 60 11RF Discharge Orders: Discharge Order (Routine); Ordered 04/06/24 Ordered By: Mary Ceron Diet: Advance to usual diet Activity on Discharge: As tolerated Stand Alone Forms: Patient Portal Discharge page Print Language: [place] Care Plan Goals: Patient declined short-term rehab wishes to be discharged home with services Continue 2 L of home oxygen Use albuterol updraft 4 times a day for next 3 days then as needed Take prednisone taper Resume all home medications as before Take Mucinex 1 tablet twice daily for 5 days and then as needed Returned to check with worsening symptoms of shortness of breath. Health Concerns: Coronary artery disease Osteoarthritis Plan of Treatment: Outpatient follow-up with primary care physician call for appointment Outpatient follow-up with primary manager presentation call for appointment Assessment: As above
[2024-04-06] MEDS: Throat Lozenge, Medicated LOZENGE 1 LOZENGE MUCOUS MEM (13:50)
== END 2024-04-06 14:55 | disposition home health service (06) | DRG 191 ==
LOC: HO.ED 12:07 → HO.EDOVER 13:47 → HO.S3 14:39
PROVIDERS: Internal Medicine; Admitting Provider Student in an Organized Health Care Education/Training Program; Emergency Provider Emergency Medicine; PCP Internal Medicine; Visit Provider Hospitalist
DX: J44.1 Chronic obstructive pulmonary disease with (acute) exacerbation (principal); G81.94 Hemiplegia, unspecified affecting left nondominant side; I50.32 Chronic diastolic (congestive) heart failure; J96.11 Chronic respiratory failure with hypoxia; K21.9 Gastro-esophageal reflux disease without esophagitis; I25.10 Atherosclerotic heart disease of native coronary artery without angina pectoris; N40.0 Benign prostatic hyperplasia without lower urinary tract symptoms; B91 Sequelae of poliomyelitis; I11.0 Hypertensive heart disease with heart failure; Z87.891 Personal history of nicotine dependence; Z20.822 Contact with and (suspected) exposure to COVID-19; Z95.2 Presence of prosthetic heart valve; Z99.81 Dependence on supplemental oxygen; Z79.01 Long term (current) use of anticoagulants; Z79.51 Long term (current) use of inhaled steroids; Z79.899 Other long term (current) drug therapy
CPT/HCPCS: 0241U; 36415; 71045; 74176; 80048; 80076; 81003; 83605; 83690; 83880; 84484; 85025; 85027; 85610; 87040; 87633; 93005; 93970; 94640; 97162; 99285; J1940; J2405; J2919; J3475

== ENCOUNTER → 2024-04-03 07:19 | Outpatient (BNV) | payer MEDICARE, MEDICAID, SELFPAY | PROVIDERS: Emergency Provider Emergency Medicine; PCP Internal Medicine; Visit Provider Internal Medicine Cardiovascular Disease | DX: R94.31 Abnormal electrocardiogram [ECG] [EKG] (principal) | CPT/HCPCS: 93010 ==

== ENCOUNTER 2024-04-03 13:36 | Outpatient (BNV) | payer MEDICARE, MEDICAID, SELFPAY | END 2024-04-04 15:49 | PROVIDERS: Admitting Provider Student in an Organized Health Care Education/Training Program; Emergency Provider Emergency Medicine; PCP Internal Medicine; Visit Provider Radiology Diagnostic Radiology | DX: I25.10 Atherosclerotic heart disease of native coronary artery without angina pectoris (principal); K57.32 Diverticulitis of large intestine without perforation or abscess without bleeding; N28.1 Cyst of kidney, acquired; M43.05 Spondylolysis, thoracolumbar region | CPT/HCPCS: 74176 ==

== ENCOUNTER → 2024-04-03 13:36 | Outpatient (BNV) | payer MEDICARE, MEDICAID, SELFPAY | PROVIDERS: Admitting Provider Student in an Organized Health Care Education/Training Program; Emergency Provider Emergency Medicine; PCP Internal Medicine; Visit Provider Student in an Organized Health Care Education/Training Program | DX: R06.00 Dyspnea, unspecified (principal) | CPT/HCPCS: 99223; 99232; 99239; G0180 ==

== ENCOUNTER 2024-04-28 13:14 | Outpatient (AMB) | payer MEDICARE, MEDICAID, SELFPAY ==
--- NOTE | 2024-04-28 13:23 | A.OFFVIS_ITS ---
Vital Signs 04/28/24 13:24 Height 5 ft 5 in BMI Reason not done Patient refused/unable BP 128/64 Blood Pressure Location Rt brachial Position Sitting Pulse 85 Pulse Source Pulse Oximeter Pulse Oximetry (%) 90 L Oxygen Delivery Method Room Air Intake Visit Reasons: COPD/PFT Follow Up Allergies ibuprofen Allergy (Mild, Verified 04/28/24 13:28) Gastrointestinal Upset HPI Comments Details: 84 year-old gentleman who is here for follow-up. He has background history of coronary artery disease. He presented to us at [facility] with mild NSTEMI in the setting of COPD exacerbation with ST depressions. 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 We decided to medically manage him. He has advanced lung disease due to COPD. He is saying he is doing better with inhalers and medications. He has bilateral lower extremity edema. He also has some shoulder issues and will require surgery in 1 month. He is complaining that he has been off balance a lot and tends to fall to the right side of the body. 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 He is saying he consistently falls right-sided. He has been using a cane to walk. 04/15/2022 the patient is here for a pulmonary follow-up visit. The patient will be undergoing a hip surgery soon. He is going to require total hip replacement. This will be done at [facility]. In the meantime is respiratory status is at baseline. He does have some shortness breath with activity mild to moderate with severity. The patient does use a cane and he does get some fatigue just because is also dealing with this musculoskeletal issues. Today need to get an x-ray in therefore we did get him a wheelchair for the duration of the ambulation. He does continue to uses inhalers as prescribed. He does have Trelegy that he uses in the morning and then a rescue inhaler to use as needed. The patient is complaining of some chest discomfort coming and going. Currently he does not have it. As far as his respiratory exam is benign. He does not have any reproducible discomfort. Will have him get a chest x-ray to make sure that all is well. He will be following up with Cardiology soon. He does have a cardiac history. The patient is aware that if the chest pain returns of her worsens he is to go to the ED or seek medical attention. 10/15/2022 the patient is here for pulmonary follow-up visit. Since we last spoke he did develop a respiratory illness in a COPD exacerbation. He sized primary care doctor who placed on prednisone and a course of Z-Edward. The patient improved although he has symptoms then started reoccurring. Does have increased chest congestion. He had been on azithromycin in the past and that was helpful for him. Therefore will which started for another 4-8 weeks to see if we can ge t his lungs a little bit more clear. The patient has been using his respiratory therapy as prescribed. 12/23/2022 the patient is here for pulmonary sick visit. He is having worsening chest discomfort shortness of breath and cough. He has been using his inhalers with only partial resolution of the symptoms. He is also concerned because he feels very weak. Today in the office was noted to have significant wheezing chest tightness. His also cough is productive at times. The patient was given a treatment with DuoNeb and he did feel better. He did have a brief 6 minute walk test the patient did desaturate very quickly to 88% with just a few steps. He was placed on 2 L pulse and did well maintaining a pulse ox 92%. Therefore he needs to start oxygen at this time. Patient also will undergo blood work and a chest x-ray at this time. He will start antibiotics and prednisone. If the patient is no better or if he worsens he definitely has to go to the hospital for further care. In the meantime is a follow-up in a couple weeks. 01/08/2023 the patient is here for pulmonary follow-up visit. During the last visit he was fairly sick he was started on oxygen. The patient completed the prednisone and now the antibiotics. Now complaining of significant sore throat. Feels very dry. She has significant thrush this time. May have some Dayna esophagitis since he has also some discomfort swallowing. Will go ahead and start him on fluconazole. Since we last spoke the patient did have blood work including an elevated troponin I. I did call him and told him to go to the ER w hich she did. Not clear which ER he went to. 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 For the most part the cardiac issues are likely secondary to the demand from his respiratory process. His chest x-ray also looked that and was fairly unremarkable. The patient has been using the oxygen with good effect. Also been using the Trelegy. It is also feeling better overall. 04/10/2023 the patient is here for a pulmonary follow-up visit. Has not been complaining of worsening shortness of breath and chest tightness. He has been using his in haler once or twice a day. Only with partial improvement of his symptoms. He has been using his oxygen more regularly. On examination he does have increased wheezing chest tightness along with a prolonged expiratory phase. He is already on Trelegy. He is already tried azithromycin. I do believe Daliresp will be a good option for him. Although we did talk about the GI symptoms that can occur. The patient can always start small dose and see to take it slowly titrating it up to minimize on the adverse effects. Patient also will need some prednisone to help him with this amount of wheezing. If the patient is no better after the prednisone or if he can not tolerate the Daliresp she should call the office for an earlier assessment otherwise will follow-up in 3-4 months. 08/13/2023 the patient is here for a pulmonary follow-up visit. He continues on the Trelegy inhaler. Appears to be affecting beneficial. Still has some dyspnea on exertion. Ckra-lm-dbesuuea severity. Mainly with activity. Does get better with rest. The last visit he did have an exacerbation. He has not had any need for additional antibiotics and prednisone since we last spoke. Will plan to request PFTs for his next visit. We also did review his last chest x-ray from December 2022. Demonstrated some volume overload status. No overt heart failure. He knows to be careful with his sodium intake And also taking the diuretic. 02/16/2024 the patient is here for a pulmonary follow-up visit. He has had a very eventful few months. Since we last spoke to him he did follow-up with Cardiology. He was evaluated for the aortic stenosis. The patient underwent a heart catheterization. Found to have some coronary artery disease. Appears to have a moderate stenosis of the OM 1. In addition to that 100% obstruction of the right coronary artery which is chronic. Other mild disease noted. The patient underwent a trans vascular aortic valve replacement apparently without any complications initially. 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 He was treated with anticoagulation. He was evaluated at [facility] I do not have any imaging reports from [facility] to be able to comment on as far as if he develops any pulmonary emboli. But right now he is being treated with the anticoagulation. He did developing worsening cough chest congestion. Also developed some chest tightness and wheezing. On examination does have some rhonchi and wheezing consistent with a COPD exacerbation. Therefore will go ahead and treat him for that. Of note the patient also mentioned that he is having episodic chest pain pressure sensation [id number] severity. Sometimes the symptoms last for 5 to 15 minutes. He does have nitroglycerin although he has never used it. Right now the patient has not told anybody. I did tell him to go to the ER the next time happens he does not have any chest pain right now. Also did advise him to take the nitroglycerin. He will undergo blood work today. If his troponin is elevated then he should therefore be evaluated for that. 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 If he develops any further chest pain he may need to go the hospital as well to have that further evaluated. 04/28/2024 the patient is here for a pulmonary follow-up visit. The patient is getting more frail. He has had some falls hurting himself resulting in some swelling of his extremities and ecchymosis specially since he is on the blood thinners. The patient is here with his daughter now and he is on a wheelchair. The patient does have oxygen at home and needs to make sure that he uses it with activity and also sleep. She sometimes can take it off at rest as long as he is being monitored by somebody else. He needs to make sure that his oxygen levels day about 90%. In the meantime the patient has been having issues with chest congestion. We did review his last imaging study and his last chest x-ray was reassuring he was able to expand his lungs although he does have some degree of ineffective cough. Does have evidence of chronic bronchitis. Therefore will start her on azithromycin 3 times a week. He is going to follow-up next month with Cardiology and have an EKG. And he will continue with his current respiratory regimen. [facility] Medical History Presence of prosthetic heart valve Aortic stenosis Bacteriuria Congestive heart disease Chronic lung disease Chronic respiratory failure Pre-op chest exam Inferior TX Pneumonitis Pulmonary nodules BPH (benign prostatic hyperplasia) COPD (chronic obstructive pulmonary disease) Pneumonia HTN (hypertension) Surgical History S/P cardiac catheterization History of carpal tunnel surgery of right wrist Hx of cardiac cath Family History Mother CAD (coronary artery disease) Heart attack Father HTN (hypertension) Brother H/O heart bypass surgery Sister Afib Social History Household Members: Spouse and Family Housing: House Do you presently have visiting nurse or other home services: Yes (location director) Alcohol intake: never Patient Tobacco Use Status: Former Tobacco user Tobacco use type: Cigarette e-Cigarette/Vaping Use: Never Used Second Hand Smoke Exposure: Yes (family smokes in the house) Advance Directives Date on File: 08/18/23 service: No Current occupational status: retired Review of Systems Const Reports fatigue, Reports frequent falls, Denies malaise, Denies night sweats and Reports weight loss ENT Denies change in voice, Denies lip swelling, Denies mouth pain, Denies nasal congestion, Denies nasal discharge and Denies tongue swelling Card Reports chest pain, Reports dyspnea and Reports dyspnea on exertion Resp Denies change in phlegm color, Reports chest congestion, Reports cough, Denies hemoptysis, Denies excessive phlegm production, Reports dyspnea, Reports dyspnea on exertion and Reports wheezing GI Denies abdominal pain Musc Reports no additional complaints, Reports as per HPI, Reports abnormal gait, Reports arthralgias, Reports joint swelling and Reports muscle weakness Neuro Reports as per HPI, Reports abnormal gait and Reports frequent falls Psych Denies no additional complaints and Reports other (hyper-sexual) Endo Reports fatigue Marco/Lymph Denies easy bleeding and Denies lymphadenopathy Aller/Immun Denies lip swelling, Denies tongue swelling and Reports wheezing Physical Exam Vital Signs: Last Vital Signs Pulse 85 04/28/24 13:24 BP 128/64 04/28/24 13:24 Pulse Ox 90 L 04/28/24 13:24 Oxygen Delivery Method Room Air 04/28/24 13:24 Const General: alert HEENT Head: Yes normocephalic Neck Neck: Yes normal visual inspection, Yes full ROM and Yes no lymphadenopathy Chest Chest palpation & inspection: normal inspection of the chest Resp Effort & Inspection: normal respiratory effort and prolonged expiratory phase Auscultation: rhonchi and diminished lung sounds Cardio Rate: regular rate Rhythm: regular rhythm Heart sounds: S1 normal heart sound present and S2 normal heart sound present GI Palpation (GI): Soft to palpation and Tenderness to palpation present (GI) in the epigastrum Auscultation: normal bowel sounds Skin General skin exam: rashes and/or lesions noted Extrem General: Yes no clubbing, cyanosis or edema Assessment & Plan Assessment & Plan (1) Dyspnea on exertion: Code(s): R06.00 - Dyspnea, unspecified Category: Medical (2) COPD (chronic obstructive pulmonary disease): Comment: severe COPD Code(s): J44.9 - Chronic obstructive pulmonary disease, unspecified Category: Medical Qualifiers: COPD type: COPD with acute exacerbation Qualified Code(s): J44.1 - Chronic obstructive pulmonary disease with (acute) exacerbation (3) Pneumonitis: Code(s): J18.9 - Pneumonia, unspecified organism Category: Medical (4) Chronic respiratory failure: Code(s): J96.10 - Chronic respiratory failure, unspecified whether with hypoxia or hypercapnia Category: Medical Qualifiers: Respiratory failure complication: hypoxia Qualified Code(s): J96.11 - Chronic respiratory failure with hypoxia Plan continue oxygen 2L/pulse 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) Trelegy inhaler not taking Dalirep CANDELARIA as needed start Azithromycin MWF, monitor EKG F/U 2-3 months Orders: Orders ECG 12 lead EKG Today J44.9 - Chronic obstructive pulmonary disease, unspecified Medications: New pjkpcloqror-ibsucogog-[id number] 200-62.5-25 mcg (Trelegy Ellipta) 1 inh inhalation DAILY 30 days 60 ea 12RF azithromycin Take 1 tablet on Thursday/Thursday/Thursday 250 mg PO 3XW 28 days 12 tabs 6RF K21.9 - Gastro-esophageal reflux disease without esophagitis Coding Level of Care Code Est Pt Level 4 (94059) Diagnoses Dyspnea on exertion R06.00 Chronic obstructive pulmonary disease with acute exacerbation J44.1 COPD type: COPD with acute exacerbation Pneumonitis J18.9 Chronic respiratory failure with hypoxia J96.11 Respiratory failure complication: hypoxia Time Spent (min) 16
[2024-04-28 13:24] VITALS: BP 128/64; PULSE 85; O2SAT 90
--- OUTSIDE RECORDS SUMMARY | 2024-05-04 02:20 | XMS_ITS | Clinical Summary ---
Author Organization Unknown Care Team Providers Care Web Marketing Analyst Name Role Phone RAKESH OTHER, ARIA Unavailable Unavailable BLANCA CHOWDHURY, THERESA Unavailable Unavailable SPRING HERNANDEZ, JACQUELINE Unavailable Unavailable Payers Payer Name Policy Type Policy Number Effective Date Expira tion Date MEDICARE.NGS.PDGM [id number] Problems Condition Name Condition Details Condition Category Status Onset Date Resolution Date Last Treatment Date Treating Clinician Comments CHRONIC OBSTRUCTIVE PULMONARY DISEASE W (ACUTE) EXACERBATION Active 06-19 00:00: 00 ATHSCL HEART DISEASE OF [place] CORONARY ARTERY W/O ANG PCTRS Active 05-25 00:00: 00 HYPERTENSIVE HEART DISEASE WITH HEART FAILURE Active 05-25 00:00: 00 UNSPECIFIED DIASTOLIC (CONGESTIVE) HEART FAILURE Active 06-16 00:00: 00 ACUTE RESPIRATORY FAILURE WITH HYPOXIA Active 06-19 00:00: 00 NONRHEUMATIC AORTIC (VALVE) STENOSIS Active 06-22 00:00: 00 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 Ordering Clinician Indication Dosage Frequency Signature (SIG) Comments Components atenolol 25 mg tablet 06-22 00:00: 00 Yes [id number] 1 tablet DAILY 1 tablet DAILY (route: oral) Med Classific ation: Cardiovas cular Therapy Agents doxycycline hyclate 100 mg capsule 06-22 00:00: 00 07-26 00:00 :00 No [id number] 1 capsule 2 TIMES DAILY 1 capsule 2 TIMES DAILY (route: oral) Med Classific ation: Anti-Infe ctive Agents fluticasone propionate 50 mcg/actuati on nasal spray,suspe nsion 06-25 00:00: 00 Yes [id number] 1 spray DAILY 1 spray DAILY (route: nasal) Med Classific ation: Respirato ry Therapy Agents losartan 100 mg tablet 06-22 00:00: 00 Yes [id number] 1 tablet DAILY 1 tablet DAILY (route: oral) Med Classific ation: Cardiovas cular Therapy Agents Mucinex 600 mg tablet, extended release 06-22 00:00: 00 Yes [id number] 1 tablet 2 TIMES DAILY 1 tablet 2 TIMES DAILY (route: oral) Med Classific ation: Respirato ry Therapy Agents oxycodone-a cetaminophe n 5 mg-300 mg tablet 06-25 00:00: 00 Yes [id number] 1 tablet 4 TIMES DAILY 1 tablet 4 TIMES DAILY (route: oral) Med Classific ation: Analgesic , Anti-infl ammatory or Antipyret ic prednisone 20 mg tablet 06-22 00:00: 00 07-26 00:00 :00 No [id number] 2 tablet DAILY 2 tablet DAILY (route: oral) Med Classific ation: Endocrine ProAir HFA 90 mcg/actuati on aerosol inhaler 06-22 00:00: 00 Yes [id number] 2 puff 4 TIMES DAILY 2 puff 4 TIMES DAILY (route: inhalation ) Med Classific ation: Respirato ry Therapy Agents tamsulosin 0.4 mg capsule 06-22 00:00: 00 Yes [id number] 1 capsule DAILY 1 capsule DAILY (route: oral) Med Classific ation: Genitouri nary Therapy Trelegy Ellipta 100 mcg-62.5 mcg-25 mcg powder for inhalation 06-22 00:00: 00 Yes [id number] 1 inhalat ion DAILY 1 inhalation DAILY (route: inhalation ) Med Classific ation: Respirato ry Therapy Agents Vital Signs Vital Name Observation Time Observation Value Commen ts Temperature 2020-08-22 11:15:08.000 96.9 [degF] Temperature 2020-08-03 08:13:03.000 98.2 [degF] Temperature 2020-07-26 17:42:54.000 98.4 [degF] Temperature 2020-07-26 09:36:31.000 96.52 [degF] Temperature 2020-07-19 14:24:19.000 98.4 [degF] Temperature 2020-07-19 11:13:02.000 98.7 [degF] Temperature 2020-07-10 13:46:09.000 97.8 [degF] Temperature 2020-07-05 13:34:52.000 98.2 [degF] Temperature 2020-07-05 11:53:51.000 97.8 [degF] Temperature 2020-06-28 15:27:52.000 97.7 [degF] Temperature 2020-06-27 19:15:48.000 98.4 [degF] Temperature 2020-06-25 12:45:33.000 98.3 [degF] Height 2020-06-25 12:48:12.000 62 [in_us] Pulse 2020-08-22 11:15:13.000 90 /min Pulse 2020-08-03 08:13:13.000 81 /min Pulse 2020-07-26 17:43:06.000 70 /min Pulse 2020-07-26 09:36:41.000 80 /min Pulse 2020-07-19 14:24:05.000 70 /min Pulse 2020-07-19 11:13:33.000 74 /min Pulse 2020-07-10 13:46:16.000 76 /min Pulse 2020-07-05 13:35:01.000 70 /min Pulse 2020-07-05 11:53:58.000 84 /min Pulse 2020-06-28 15:29:21.000 86 /min Pulse 2020-06-27 19:15:57.000 84 /min Pulse 2020-06-25 12:46:04.000 82 /min O2 Saturation (%) 2020-08-22 11:15:41.000 97 % O2 Saturation (%) 2020-08-03 08:13:43.000 93 % O2 Saturation (%) 2020-07-26 17:43:50.000 98 % O2 Saturation (%) 2020-07-26 09:37:29.000 94 % O2 Saturation (%) 2020-07-19 11:13:50.000 94 % O2 Saturation (%) 2020-07-10 13:45:57.000 97 % O2 Saturation (%) 2020-07-05 11:54:35.000 95 % O2 Saturation (%) 2020-06-28 15:30:11.000 94 % O2 Saturation (%) 2020-06-25 12:48:03.000 94 % Respirations 2020-08-22 11:15:19.000 20 /min Respirations 2020-08-03 08:13:19.000 18 /min Respirations 2020-07-26 17:43:22.000 18 /min Respirations 2020-07-26 09:36:55.000 20 /min Respirations 2020-07-19 14:23:53.000 17 /min Respirations 2020-07-19 11:13:40.000 17 /min Respirations 2020-07-10 13:46:04.000 18 /min Respirations 2020-07-05 13:35:24.000 16 /min Respirations 2020-07-05 11:53:47.000 18 /min Respirations 2020-06-28 15:29:30.000 18 /min Respirations 2020-06-27 19:16:06.000 16 /min Respirations 2020-06-25 12:46:12.000 18 /min Weight (lbs) 2020-08-22 10:50:56.000 177 [lb_av] Weight (lbs) 2020-08-03 08:14:23.000 177 [lb_av] Weight (lbs) 2020-07-26 09:38:46.000 178 [lb_av] Weight (lbs) 2020-07-19 11:15:38.000 174.4 [lb_av] Weight (lbs) 2020-07-10 13:46:28.000 176 [lb_av] Weight (lbs) 2020-07-05 11:54:29.000 177 [lb_av] Weight (lbs) 2020-06-25 12:48:23.000 174 [lb_av] Systolic Blood Pressure 2020-08-22 11:15:26.000 140 mm [Hg] Systolic Blood Pressure 2020-08-03 08:13:34.000 130 mm [Hg] Systolic Blood Pressure 2020-07-26 17:43:34.000 130 mm [Hg] Systolic Blood Pressure 2020-07-26 09:37:13.000 132 mm [Hg] Systolic Blood Pressure 2020-07-19 14:23:15.000 127 mm [Hg] Systolic Blood Pressure 2020-07-19 11:15:17.000 130 mm [Hg] Systolic Blood Pressure 2020-07-10 13:45:51.000 110 mm [Hg] Systolic Blood Pressure 2020-07-05 13:35:41.000 120 mm [Hg] Systolic Blood Pressure 2020-07-05 11:53:14.000 124 mm [Hg] Systolic Blood Pressure 2020-06-28 15:29:49.000 118 mm [Hg] Systolic Blood Pressure 2020-06-27 19:16:22.000 116 mm [Hg] Systolic Blood Pressure 2020-06-25 12:47:48.000 120 mm [Hg] Diastolic Blood Pressure 2020-08-22 11:15:26.000 78 mm [Hg] Diastolic Blood Pressure 2020-08-03 08:13:34.000 68 mm [Hg] Diastolic Blood Pressure 2020-07-26 17:43:34.000 78 mm [Hg] Diastolic Blood Pressure 2020-07-26 09:37:13.000 90 mm [Hg] Diastolic Blood Pressure 2020-07-19 14:23:15.000 80 mm [Hg] Diastolic Blood Pressure 2020-07-19 11:15:17.000 72 mm [Hg] Diastolic Blood Pressure 2020-07-10 13:45:51.000 60 mm [Hg] Diastolic Blood Pressure 2020-07-05 13:35:41.000 70 mm [Hg] Diastolic Blood Pressure 2020-07-05 11:53:14.000 70 mm [Hg] Diastolic Blood Pressure 2020-06-28 15:29:49.000 68 mm [Hg] Diastolic Blood Pressure 2020-06-27 19:16:22.000 72 mm [Hg] Diastolic Blood Pressure 2020-06-25 12:47:48.000 78 mm [Hg] Plan of Treatment Planned Activity Planned Date Details Comments Future Scheduled Test SKILLED NU RSE TO ASSESS, EVALUATE, AND DEVELOP AN INDIVIDUALIZED PLAN OF CARE. AGENCY MAY ACCEPT ORDERS FROM CONSULTING PHYSICIANS DR RODRIGUEZ. ARANGO TO OBSERVE/ASSESS RISK FOR FALLS AND INSTRUCT IN FALL PREVENTION, HOME SAFETY, MEDICATION MANAGEMENT, INFECTION PREVENTION, AND NUTRITION MANAGEMENT. SN MAY PERFORM O2 SATURATION LEVEL ON ADMISSION AND PRN FOR SOB TO ASSESS PATIENT, WITH NOTIFICATION TO THE PHYSICIAN IF SATURATION IS 90% IN THE ABSENCE OF MORE SPECIFIC PARAMETERS FROM THE PHYSICIAN. AGENCY MAY PERFORM A RESUMPTION OF CARE VISIT FOLLOWING ANY HOSPITAL ADMISSION. ALL DISCIPLINES (EXCEPT RIDE OPERATOR) MAY PROVIDE TELEHEALTH PHONE/REMOTE/VIRTUAL VISITS IN LIEU OF AN IN-PERSON VISIT THAT DOES NOT REQUIRE HANDS ON OR IN PERSON ASSESSMENT WHEN AN IN-PERSON VISIT IS NOT POSSIBLE DUE TO THE PUBLIC HEALTH EMERGENCY RELATED TO THE COVID- PANDEMIC. SKILLED NURSE TO INSTRUCT PATIENT / CAREGIVER ON DISEASE PROCESS, SELF MANAGEMENT, SIGNS AND SYMPTOMS TO REPORT TO SN/PHYSICIAN, RELATED TO: PNEUMONIA, COPD, HTN. [code = SKILLED NURSE TO ASSESS, EVALUATE, AND DEVELOP AN INDIVIDUALIZED PLAN OF CARE. AGENCY MAY ACCEPT ORDERS FROM CONSULTING PHYSICIANS DR RODRIGUEZ. ARANGO TO OBSERVE/ASSESS RISK FOR FALLS AND INSTRUCT IN FALL PREVENTION, HOME SAFETY, MEDICATION MANAGEMENT, INFECTION PREVENTION, AND NUTRITION MANAGEMENT. SN MAY PERFORM O2 SATURATION LEVEL ON ADMISSION AND PRN FOR SOB TO ASSESS PATIENT, WITH NOTIFICATION TO THE PHYSICIAN IF SATURATION IS 90% IN THE ABSENCE OF MORE SPECIFIC PARAMETERS FROM THE PHYSICIAN. AGENCY MAY PERFORM A RESUMPTION OF CARE VISIT FOLLOWING ANY HOSPITAL ADMISSION. ALL DISCIPLINES (EXCEPT RIDE OPERATOR) MAY PROVIDE TELEHEALTH PHONE/REMOTE/VIRTUAL VISITS IN LIEU OF AN IN-PERSON VISIT THAT DOES NOT REQUIRE HANDS ON OR IN PERSON ASSESSMENT WHEN AN IN-PERSON VISIT IS NOT POSSIBLE DUE TO THE PUBLIC HEALTH EMERGENCY RELATED TO THE COVID- PANDEMIC. SKILLED NURSE TO INSTRUCT PATIENT / CAREGIVER ON DISEASE PROCESS, SELF MANAGEMENT, SIGNS AND SYMPTOMS TO REPORT TO SN/PHYSICIAN, RELATED TO: PNEUMONIA, COPD, HTN.] Future Scheduled Test MEDICATION MANAGEMENT; SKILLED NURSE TO REVIEW MEDICATIONS FOR INTERACTIONS, EFFECTIVENESS OF DRUG THERAPY, AND SIGNS/SYMPTOMS OF ADVERSE REACTIONS. MAY INSTRUCT AND REINFORCE MEDICATION TEACHING RELATED TO THE USE OF MEDICATIONS, DOSAGE, FREQUENCY, PURPOSE, SIDE EFFECTS, AND TO REPORT COMPLICATIONS. [code = MEDICATION MANAGEMENT; SKILLED NURSE TO REVIEW MEDICATIONS FOR INTERACTIONS, EFFECTIVENESS OF DRUG THERAPY, AND SIGNS/SYMPTOMS OF ADVERSE REACTIONS. MAY INSTRUCT AND REINFORCE MEDICATION TEACHING RELATED TO THE USE OF MEDICATIONS, DOSAGE, FREQUENCY, PURPOSE, SIDE EFFECTS, AND TO REPORT COMPLICATIONS.] Future Scheduled Test CARDIOVASC ULAR SYSTEM; SKILLED NURSE TO ASSESS AND TEACH RELATED TO ALTERED CARDIOVASCULAR STATUS TO MINIMIZE COMPLICATIONS AND REDUCE HOSPITALIZATION. [code = CARDIOVASCULAR SYSTEM; SKILLED NURSE TO ASSESS AND TEACH RELATED TO ALTERED CARDIOVASCULAR STATUS TO MINIMIZE COMPLICATIONS AND REDUCE HOSPITALIZATION.] Future Scheduled Test RESPIRATOR Y SYSTEM MANAGEMENT; SKILLED NURSE TO ASSESS AND TEACH RELATED TO ALTERED RESPIRATORY STATUS TO MINIMIZE COMPLICATIONS AND REDUCE HOSPITALIZATION. [code = RESPIRATORY SYSTEM MANAGEMENT; SKILLED NURSE TO ASSESS AND TEACH RELATED TO ALTERED RESPIRATORY STATUS TO MINIMIZE COMPLICATIONS AND REDUCE HOSPITALIZATION.] Future Scheduled Test COPD MANAG EMENT; SKILLED NURSE TO ASSESS AND TEACH SIGNS/SYMPTOMS OF COPD EXACERBATION AND PROVIDE EARLY INTERVENTIONS TO MINIMIZE RISK OF HOSPITALIZATION. SKILLED NURSE TO INSTRUCT ON SELF-CARE MANAGEMENT INCLUDING BREATHING TECHNIQUES, AIRWAY CLEARANCE, AND PROPER USE OF COPD MEDICATIONS. ASSESS PATIENT/CAREGIVER ABILITY TO MONITOR AND RECORD VITALS SIGNS INCLUDING PULSE OXIMETRY AND BLOOD PRESSURE. PULSE OXIMETER AND BP MONITOR TO BE PROVIDED IF NEEDED. [code = COPD MANAGEMENT; SKILLED NURSE TO ASSESS AND TEACH SIGNS/SYMPTOMS OF COPD EXACERBATION AND PROVIDE EARLY INTERVENTIONS TO MINIMIZE RISK OF HOSPITALIZATION. SKILLED NURSE TO INSTRUCT ON SELF-CARE MANAGEMENT INCLUDING BREATHING TECHNIQUES, AIRWAY CLEARANCE, AND PROPER USE OF COPD MEDICATIONS. ASSESS PATIENT/CAREGIVER ABILITY TO MONITOR AND RECORD VITALS SIGNS INCLUDING PULSE OXIMETRY AND BLOOD PRESSURE. PULSE OXIMETER AND BP MONITOR TO BE PROVIDED IF NEEDED.] Future Scheduled Test PNEUMONIA MANAGEMENT; SKILLED NURSE TO ASSESS AND TEACH SIGNS OF PNEUMONIA EXACERBATION AND PROVIDE EARLY INTERVENTIONS TO MINIMIZE RISK OF HOSPITALIZATION. [code = PNEUMONIA MANAGEMENT; SKILLED NURSE TO ASSESS AND TEACH SIGNS OF PNEUMONIA EXACERBATION AND PROVIDE EARLY INTERVENTIONS TO MINIMIZE RISK OF HOSPITALIZATION.] Future Scheduled Test PAIN MANAG EMENT; SKILLED NURSE TO OBSERVE, ASSESS, AND PROVIDE EDUCATION ON PAIN MANAGEMENT TECHNIQUES. [code = PAIN MANAGEMENT; SKILLED NURSE TO OBSERVE, ASSESS, AND PROVIDE EDUCATION ON PAIN MANAGEMENT TECHNIQUES.] Future Scheduled Test FALL REDUC TION MANAGEMENT; NURSING TO PROVIDE SKILLED ASSESSMENT, EDUCATION, AND INTERVENTION TO IDENTIFY FALL RISK FACTORS SUCH MEDICATIONS THAT MAY CAUSE DIZZINESS, CHRONIC DISEASES, PSYCHOLOGICAL FACTORS, AND EMPOWER/EDUCATE PATIENT/CAREGIVER TO MINIMIZE FALL RISK. [code = FALL REDUCTION MANAGEMENT; NURSING TO PROVIDE SKILLED ASSESSMENT, EDUCATION, AND INTERVENTION TO IDENTIFY FALL RISK FACTORS SUCH MEDICATIONS THAT MAY CAUSE DIZZINESS, CHRONIC DISEASES, PSYCHOLOGICAL FACTORS, AND EMPOWER/EDUCATE PATIENT/CAREGIVER TO MINIMIZE FALL RISK.] Future Scheduled Test AGENCY MAY PERFORM A RESUMPTION OF CARE VISIT FOLLOWING ANY HOSPITAL ADMISSION. ALL DISCIPLINES (EXCEPT RIDE OPERATOR) MAY PROVIDE TELEHEALTH PHONE/REMOTE/VIRTUAL VISITS IN LIEU OF AN IN-PERSON VISIT THAT DOES NOT REQUIRE HANDS ON OR IN PERSON ASSESSMENT WHEN AN IN-PERSON VISIT IS NOT POSSIBLE DUE TO THE PUBLIC HEALTH EMERGENCY RELATED TO THE COVID-19 PANDEMIC. OCCUPATIONAL THERAPY TO EVALUATE, ASSESS, AND MONITOR, PROVIDE SKILLED THERAPEUTIC INTERVENTION, ACTIVITY, EDUCATION, AND TRAINING TO ADDRESS; ENERGY CONSERVATION/ACTIVITY DEMAND (OT) HEALTHY LIVING (OT) FALL REDUCTION (OT) [code = AGENCY MAY PERFORM A RESUMPTION OF CARE VISIT FOLLOWING ANY HOSPITAL ADMISSION. ALL DISCIPLINES (EXCEPT RIDE OPERATOR) MAY PROVIDE TELEHEALTH PHONE/REMOTE/VIRTUAL VISITS IN LIEU OF AN IN-PERSON VISIT THAT DOES NOT REQUIRE HANDS ON OR IN PERSON ASSESSMENT WHEN AN IN-PERSON VISIT IS NOT POSSIBLE DUE TO THE PUBLIC HEALTH EMERGENCY RELATED TO THE COVID-19 PANDEMIC. OCCUPATIONAL THERAPY TO EVALUATE, ASSESS, AND MONITOR, PROVIDE SKILLED THERAPEUTIC INTERVENTION, ACTIVITY, EDUCATION, AND TRAINING TO ADDRESS; ENERGY CONSERVATION/ACTIVITY DEMAND (OT) HEALTHY LIVING (OT) FALL REDUCTION (OT)] Goal 2020-08-22 Patient Goal - HAVE MY PNEUM ONIA GONE Goal Provider Goal - A PLAN OF CARE WILL BE ESTABLISHED THAT MEETS THE PATIENT'S NURSING NEEDS BY 08/23/2020. PATIENT WILL DEMONSTRATE OXYGEN SATURATION WITH NORMAL LIMITS OR TO PATIENT'S OPTIMAL LEVEL ESTABLISHED BY THE PHYSICIAN THROUGHOUT CARE Goal Provider Goal - PATIENT/CAREGIVER TO VERBALIZE, AND CONSISTENTLY DEMONSTRATE EFFECTIVE, SAFE MANAGEMENT OF MEDICATION INCLUDING KNOWLEDGE OF EFFECTIVENESS, POTENTIAL SIDE EFFECTS AND DRUG REACTIONS AND WHEN TO CONTACT THE APPROPRIATE CARE PROVIDER. PATIENT/CAREGIVER WILL BE ABLE TO VERBALIZE UNDERSTANDING OF MEDICATION REGIMEN AND ACCURATELY TAKE MEDICATIONS PRESCRIBED WITHOUT ADVERSE EFFECTS BY 08/23/2020. Goal Provider Goal - PATIENT / CAREGIVER WILL VERBALIZE/DEMONSTRATE UNDERSTANDING OF MEASURES TO MANAGE ALTERED CARDIOVASCULAR STATUS BY 08/23/2020. Goal Provider Goal - PATIENT / CAREGIVER WILL VERBALIZE/DEMONSTRATE UNDERSTANDING OF MEASURES TO MANAGE ALTERED RESPIRATORY STATUS BY END OF EPISODE. Goal Provider Goal - PATIENT / CAREGIVER WILL VERBALIZE/DEMONSTRATE AN ABILITY TO ADHERE TO SELF-MANAGEMENT OF COPD TO MINIMIZE COMPLICATIONS AND AVOID HOSPITALIZATION BY END OF EPISODE. Goal Provider Goal - PATIENT / CAREGIVER WILL VERBALIZE/DEMONSTRATE AN ABILITY TO ADHERE TO PNEUMONIA SELF-MANAGEMENT TO MINIMIZE COMPLICATIONS AND AVOID HOSPITALIZATION BY END OF EPISODE. Goal Provider Goal - PATIENT / CAREGIVER WILL VERBALIZE / DEMONSTRATE UNDERSTANDING OF PAIN CONTROL MEASURES BY 08/23/2020. Goal Provider Goal - PATIENT/CAREGIVER ABLE TO IDENTIFY FALL RISK FACTORS AND IMPLEMENT STRATEGIES TO MINIMIZE FALL RISK. PATIENT/CAREGIVER WILL VERBALIZE/DEMONSTRATE AN ABILITY TO ADHERE TO FALL REDUCTION SELF MANAGEMENT AND LIFE-STYLE CHANGES AT DISCHARGE. PERSONAL GOAL(S) STATED BY PATIENT/CAREGIVER WILL BE MET BY 08/23/2020. Goal Provider Goal - OT LTG: PATIENT WILL INCORPORATE ENERGY CONSERVATION TECHNIQUES TO DECREASE ACTIVITY DEMAND EVIDENCED BY A REDUCTION IN NEHEMIAH SCORE DURING ADL FROM 11 TO 9 WITHIN 4 WEEKS OT LTG: PATIENT WILL DEMONSTRATE IMPROVED ABILITY TO INCORPORATE ENERGY CONSERVATION DURING ADL WHILE MAINTAINING O2 SATS AT > 90 WITHIN 4 WEEKS OT LTG: PATIENT WILL DEMONSTRATE UTILIZATION OF ENERGY CONSERVATION STRATEGIES FROM S TO MOD I WITHIN 4 WEEKS PATIENT/CAREGIVER WILL BE ABLE TO IMPLEMENT OCCUPATIONAL THERAPY EDUCATION RECOMMENDATIONS SPECIFIC TO HEALTHY LIVING FOR IMPROVED ADL/IADL COMPLETION AND HOME SAFETY BY DISCHARGE. PATIENT/CAREGIVER WILL BE ABLE TO IMPLEMENT OCCUPATIONAL THERAPY EDUCATION RECOMMENDATIONS SPECIFIC TO FALL REDUCTION FOR IMPROVED ADL/IADL COMPLETION AND HOME SAFETY BY DISCHARGE. Reason for Visit INDEPENDENT IN THE COMMUNITY Encounters Start Date/Time End Date/Time Encounter Type Admission Type Attending [facility] Care Department Encounter ID Discharge Date Discharge Status Discharge Condition Discharge Reason Percent Goals Met 2020-06-25 00:00:00 2020-08-22 00:00:00 Outpatient [facility] [id number] 2020-08-22 00:00:00 DISCHARGE TO HOME OR SELF CARE INDEPENDEN T IN THE COMMUNITY HH OR [facility]- GOALS MET 100.00
== END 2024-04-28 14:02 | disposition home or self-care (01) ==
PROVIDERS: PCP Internal Medicine; Visit Provider Hospitalist
DX: J44.1 Chronic obstructive pulmonary disease with (acute) exacerbation (principal); J18.9 Pneumonia, unspecified organism; J96.11 Chronic respiratory failure with hypoxia
CPT/HCPCS: 99214

== ENCOUNTER → 2024-04-28 13:14 | Outpatient (BNVA) | payer MEDICARE, MEDICAID, SELFPAY | PROVIDERS: PCP Internal Medicine; Visit Provider Hospitalist | DX: J44.1 Chronic obstructive pulmonary disease with (acute) exacerbation (principal); J18.9 Pneumonia, unspecified organism; J96.11 Chronic respiratory failure with hypoxia; I25.10 Atherosclerotic heart disease of native coronary artery without angina pectoris; I25.2 Old myocardial infarction; Z99.81 Dependence on supplemental oxygen | CPT/HCPCS: 99212 ==

== ENCOUNTER 2024-07-08 07:14 | Inpatient (IN) | payer MEDICARE, OTHER, SELFPAY ==
[2024-07-08] VITALS (7 sets, daily range): BP systolic 112–134; BP diastolic 53–76; PULSE 93–117; RESP 17–20; TEMP 36.6–37.2; O2SAT 92–98; BMI 29.2
--- NOTE | ~2024-07-08 | XR_ITS ---
CLINICAL HISTORY: sob One view chest Comparison: CR/SR - XR CHEST 1V - 04/03/24 08:15 EST Findings: Cardiac and mediastinal contours are normal. Mild interstitial prominence, chronic appearing. No focal consolidation. No effusion. No pneumothorax. No acute osseous finding. Impression: Mild chronic appearing interstitial prominence. No focal consolidation. This document has been electronically signed by: Alfredo Mitchell MD on 07/09/2024 11:40:50
--- NOTE | ~2024-07-08 | CT_ITS ---
CLINICAL HISTORY: hypoxia, history of dvt CT angiography chest with contrast. 3D Postprocessing. Comparison: CR - XR CHEST 1V - 07/12/24 12:10 EST Findings: The heart size is normal. RV/LV ratio is normal. Prosthetic aortic valve. The thoracic aorta is normal caliber. No pulmonary artery filling defects. The visualized thyroid and mediastinum are unremarkable. Left basilar subsegmental atelectasis, lungs are otherwise clear. The visualized upper abdomen is unremarkable. The bones are intact. IMPRESSION: 1. No pulmonary emboli. No acute aortic syndrome. 2. Left basilar subsegmental atelectasis, lungs are otherwise clear This document has been electronically signed by: Eed Funes MD on 07/12/2024 19:17:58
--- NOTE | ~2024-07-08 | CT_ITS ---
EXAMINATION: CT ABDOMEN PELVIS WITHOUT IV CONTRAST HISTORY: hematuria, flank pain COMPARISON: Comparison is made with the prior examination dated 04/04/2024. TECHNIQUE: CT scan of the abdomen and pelvis was performed without contrast using standard departmental protocol. Coronal and sagittal reformatted images were generated and reviewed. Oral contrast material was not administered per department protocol. This CT exam was performed with one or more of the following dose reduction techniques: automated exposure control, adjustment of the mA and/or kV according to patient size, use of iterative reconstruction technique. DLP: 595 mGy-cm FINDINGS: LOWER CHEST: The visualized lung bases are clear. There is no pleural effusion. CARDIOVASCULATURE: The heart is normal in size. There is no pericardial effusion. LIVER: The liver is normal in size and contour. Again seen is a 10 mm cyst in the left lobe. GALLBLADDER / BILE DUCTS: The gallbladder is surgically absent. There is no intra or extrahepatic biliary ductal dilatation. SPLEEN: The spleen is normal in size and has an unremarkable unenhanced appearance. PANCREAS: Again seen is atrophy of the pancreatic body and tail and a 1.3 cm low-density lesion in the head. ADRENAL GLANDS: Again seen is nodularity of the right adrenal gland. The left adrenal is unremarkable. KIDNEYS/RETROPERITONEUM: There is a 1.7 cm cyst at the upper pole of the right kidney and 2.7 cm complicated cyst demonstrating wall calcification at the lower pole. The left kidney demonstrates a 4.3 cm cyst at the upper pole and a 2.5 cm cyst at the lower pole. There is no evidence of nephrolithiasis or hydronephrosis. The ureters are normal in caliber. No ureteral calculi are identified. LYMPH NODES: No retroperitoneal lymphadenopathy is identified in the abdomen or pelvis. VASCULATURE: The abdominal aorta demonstrates atherosclerotic calcification, but is normal in caliber. MESENTERY/PERITONEUM: No free fluid. No masses. There is no free intraperitoneal gas. STOMACH: There is a small hiatal hernia. The remainder of the stomach is collapsed. SMALL BOWEL: The small bowel is normal in caliber. COLON: There is a large amount of stool throughout the colon. There is diverticulosis of the sigmoid colon, without evidence of diverticulitis. APPENDIX: The appendix is not seen, however no inflammatory changes are seen adjacent to the cecum. URINARY BLADDER/PELVIC ORGANS: The urinary bladder is collapsed with a Bhatia catheter. The prostate is largely obscured by streak artifact from bilateral total hip arthroplasties. BONES / SOFT TISSUES: There is degenerative disc disease of the spine. The patient is status post posterior fusion of L4 and S1 with pedicle screws and spinal stabilization rods. CT/CT abdomen pelvis wo IV con IMPRESSION: 1. No evidence of nephrolithiasis or ureteral obstruction. 2. Multiple incidental findings as described above without change from the prior study. Electronically signed by: Nelson Hopson MD 07/08/2024 11:04 AM [facility]
--- NOTE | ~2024-07-08 | XR_ITS ---
CLINICAL HISTORY: Sudden onset dyspnea 1 view chest x-ray Comparison: CR - XR CHEST 1V - 07/09/24 09:54 EST Findings: Linear opacity within the left lower lung. Clear right lung. No consolidation. Heart size is normal. Marked elevation of the right humeral head compatible with rotator cuff pathology. Postsurgical changes of the cervical spine. No acute fracture. IMPRESSION: There is a linear focus of atelectasis within the left lower lung. This document has been electronically signed by: Jessie Hester MD on 07/12/2024 13:17:29
--- NOTE | 2024-07-08 07:21 | ED_ITS ---
HPI - Male Genitourinary General Chief complaint: Urogenital-Male Stated complaint: Poss blocked urinary catheter per EMS Source: patient, EMS and old records reviewed Mode of arrival: EMS Limitations: no limitations History of Present Illness ED Provider: BAILEY JAMESON Narrative: 84 yo male with PMH of COPD, UTI, TAVR 2023, DVT on eliquis, BPH, HTN, pneumonia here with c/o having a king catheter in for 3 weeks due to retention while at rehab. He was due to see his urologist today for removal and what sounds like bladder scan? He states for the past two days he has intermittently urinated around the catheter. Last night he developed lots of pressure and suprapubic pain and states the cath stopped draining. He did try to pull it a little bit to see if that helped but it just caused mild bleeding from the tip of this penis. He came this AM due to persistent pain and unable to urinate in king. He is not currently on any antibiotics. Complaint: other (king issue) Onset (ago): day(s) (2) Duration: constant Location: penis Radiation: abdomen Severity: moderate Quality: aching Relieving factors: urination Exacerbating factors: none Context: indwelling catheter Associated symptoms: Reports other Related Data Home Medications ?Medication ?Instructions ?Recorded ?Confirmed atenolol 25 mg tablet 25 mg PO DAILY 06/19/20 04/03/24 aspirin 81 mg tablet,delayed 81 mg PO DAILY 11/19/20 04/03/24 release pantoprazole 20 mg tablet,delayed 20 mg PO DAILY@0630 11/19/20 04/03/24 release (Protonix) fluticasone propionate 50 1 spray intranasal DAILY Congestion 02/12/21 04/03/24 mcg/actuation nasal spray,suspension oxycodone-acetaminophen 5 mg-325 1 tab PO QID PRN Pain (Scale Score 02/12/21 04/03/24 mg tablet 1-3) nebulizers 10/15/22 02/23/24 Oxygen Home Use 01/08/23 02/23/24 gabapentin 100 mg capsule 200 mg PO TID 04/10/23 04/03/24 albuterol sulfate 2.5 mg/3 mL 2.5 mg inhalation Q6H PRN for 08/17/23 04/03/24 (0.083 %) solution for nebulization dyspnea albuterol sulfate 90 mcg/actuation 2 puff inhalation QID PRN SOB 12/18/23 04/03/24 aerosol inhaler furosemide 20 mg tablet 20 mg PO BID@0900,1400 02/16/24 04/03/24 apixaban 5 mg tablet (Eliquis) 5 mg PO BID 02/23/24 04/03/24 acetaminophen 325 mg tablet 650 mg PO Q6H PRN Fever Or Pain 04/03/24 04/03/24 amlodipine 10 mg tablet 10 mg PO DAILY 04/03/24 04/03/24 lidocaine 4 % topical patch 1 patch transdermal DAILY PRN Pain 04/03/24 04/03/24 (Lidocaine Pain Relief) Previous Rx's ?Medication ?Instructions ?Recorded montelukast 10 mg tablet 10 mg PO DAILY 30 days #30 tabs 06/26/20 fluticasone fur. 100 mcg-umeclid 1 ea inhalation DAILY 30 days #60 08/13/23 62.5 mcg-vilant 25 mcg ea inhalat.powder (Trelegy Ellipta) isosorbide mononitrate 60 mg 60 mg PO DAILY #90 tabs 12/14/23 tablet,extended release 24 hr benzocaine 15 mg-menthol 3.6 mg 1 aure mucous membrane Q2H PRN Sore 04/06/24 lozenges (Sore Throat (benzocaine Throat #18 ea with menthol)) guaifenesin 600 mg tablet, 600 mg PO BID #20 tabs 04/06/24 extended release 12 hr (Mucinex) prednisone 10 mg tablet 10 mg PO DIRECTED #30 tabs 04/06/24 azithromycin 250 mg tablet 250 mg PO 3XW 28 days #12 tabs 04/28/24 fluticasone fur. 200 mcg-umeclid 1 inh inhalation DAILY 30 days #60 04/28/24 62.5 mcg-vilant 25 mcg ea inhalat.powder (Trelegy Ellipta) Allergies Allergy/AdvReac Type Severity Reaction Status Date / Time ibuprofen Allergy Mild Gastrointestinal Verified 07/08/24 07:35 Upset Review of Systems 2 Review of Systems: Constitutional : No Fever, No Chills, No Fatigue ENT/Mouth : No sore throat, No Rhinorrhea Eyes: No Eye Pain, No Swelling, No Redness Cardiovascular : No Chest Pain, No SOB, No Dyspnea on Exertion Respiratory : No Cough, No Sputum Gastrointestinal : No Nausea, No Vomiting, No Diarrhea, No abdominal Pain Genitourinary : no Dysuria, No Urinary Frequency, No Hematuria, pos retention Musculoskeletal : No joint pain, No Myalgias, No Joint Swelling Skin : No Skin Lesions, No rash Neuro : No Weakness, No Numbness, No Dizziness, no Headache All other systems reviewed and are negative FORMERLY [facility], [facility] Past Medical History Attestation statement: The following information was validated with the patient. Source: old records reviewed Medical History Presence of prosthetic heart valve Aortic stenosis Bacteriuria Congestive heart disease Chronic lung disease Chronic respiratory failure Pre-op chest exam Inferior SC Pneumonitis Pulmonary nodules BPH (benign prostatic hyperplasia) COPD (chronic obstructive pulmonary disease) Pneumonia HTN (hypertension) Surgical History S/P cardiac catheterization History of carpal tunnel surgery of right wrist Hx of cardiac cath Family History Family History Mother CAD (coronary artery disease) Heart attack Father HTN (hypertension) Brother H/O heart bypass surgery Sister Afib Social History Social History Household Members: Spouse and Family Housing: House Do you presently have visiting nurse or other home services: Yes (occupational therapist) Alcohol intake: former Patient Tobacco Use Status: Former Tobacco user Tobacco use type: Cigarette e-Cigarette/Vaping Use: Never Used Second Hand Smoke Exposure: Yes (family smokes in the house) Use of substances other than those prescribed or required for medical reasons: No Advance Directives: Yes Advance Directives on File: Yes Advance Directives Date on File: 08/18/23 Do you have a plan to hurt others: No Plan service: No Current occupational status: retired Physical Exam 2 Vital Signs: Vital Signs: Last Vital Signs Temp 98 F 07/08/24 09:48 Pulse 99 07/08/24 09:48 Resp 18 07/08/24 09:48 BP 133/76 07/08/24 09:48 Pulse Ox 95 07/08/24 09:48 O2 Del Method Nasal Cannula 07/08/24 09:48 O2 Flow Rate 2 07/08/24 09:48 BMI result Body Mass Index 29.2 Appearance: Alert. Oriented X3. No acute distress. Eyes: Pupils equal, round and reactive to light. ENT: Pharynx normal. Neck: Normal inspection. Neck supple. CVS: Normal heart rate and rhythm. Pulses normal. Respiratory: No respiratory distress. Breath sounds diminished Abdomen: Soft and suprapubic ttp and fullness : thick sediment in catheter scant blood at the meatus Skin: Skin warm and dry. Normal skin color. Normal skin turgor. Extremities: No lower extremity edema. No calf ttp Neuro: Oriented X 3. No motor deficit. No sensory deficit. CN2-12 intact Course Course Course Narrative: at this time infection suspected 838am. IV ceftriaxone ordered. Reevaluation(s) Reevaluation #1: urine is clearing with CBI no clots noted started to darken once stopped, CBI resumed Medications Administered Discontinued Medications Generic Name Dose Route Start Last Admin Trade Name Freq PRN Reason Stop Dose Admin Ceftriaxone Sodium 1 gm 07/08/24 08:37 07/08/24 09:39 Ceftriaxone Sodium 1 Gm Vial IVPUSH 07/08/24 08:38 1 gm ONCE ONE Administration Lidocaine HCl 10 ml 07/08/24 07:29 07/08/24 08:14 Lidocaine Hcl 2 % Urojet 10 Ml Jel.Pf.Deepti TOPICAL 07/08/24 07:30 Not Given ONCE ONE Medical Decision Making Medical Decision Making [facility] Narrative: 84 yo male with PMH of COPD, UTI, TAVR 2023, DVT on eliquis, BPH, HTN, pneumonia here with c/o blocked king catheter at this time given his sediment will obtain labs, UA and we did remove the catheter with scant bloody output from the meatus at this time he cannot urinate will replace the king catheter with possible 3 way given the clots coming out after removal of old catheter. Patient also admittedly caused trauma by pulling the catheter and has blood noted on exam Differential Diagnosis Differential Diagnoses: The differential diagnosis associated with the presentation includes blocked king catheter, BPH, clots Admission/Observation Consideration of admission/observation: Escalation of care including admission/observation considered still on CBI will admit for further work up including IV abx Consult Healthcare Provider Management of the patient was discussed with: Hospitalist (will admit) and Draughtsman Dr. Smyth aware Lab Data MDM Lab Attestation statement: I reviewed the patient's lab results. 07/08/24 09:31 07/08/24 09:32 Labs: Lab Results 07/08/24 07/08/24 07/08/24 Range/Units 08:18 09:31 09:32 WBC 16.6 H (4.8-10.8) X10*3/uL RBC 4.72 (4.60-5.80) X10*6/uL Hgb 13.1 L (14.0-18.0) g/dl Hct 41.9 L (42.0-52.0) % MCV 88.8 (80.0-98.0) fL MCH 27.8 (27.0-33.0) pg MCHC 31.3 (31.0-36.0) g/dl RDW 13.3 (11.0-16.0) % Plt Count 381 D (160-400) X10*3/uL MPV 9.4 (9.4-12.4) fL Immature Gran % (Auto) 0.4 (0.0-0.4) % Neut % (Auto) 85.5 H (45-73) % Lymph % (Auto) 3.0 L (20-40) % [place] % (Auto) 10.4 (2-11) % Eos % (Auto) 0.1 (0-4) % Baso % (Auto) 0.6 (0-2) % Lymph # (Auto) 0.5 L (1.2-4.9) X10*3/uL [place] # (Auto) 1.7 H (0.1-1.2) X10*3/uL Eos # (Auto) 0.0 (0.0-0.4) X10*3/uL Baso # (Auto) 0.1 (0.0-0.2) X10*3/uL Abs Immat Gran (auto) 0.06 H (0.00-0.03) X10*3/uL Absolute Neuts (auto) 14.2 H (2.0-8.3) x10*3/uL Absolute Nucleated RBC 0.000 (0.0-0.012) X10*3/uL Nucleated RBC % (auto) 0.0 (0.0-0.2) /100WBC Smear Tech's Comments VERIFIED Sodium 139 (135-145) mmol/L Potassium 3.6 (3.3-5.1) mmol/L Chloride 102 (96-108) mmol/L Carbon Dioxide 26 (22-29) mmol/L Anion Gap 15 (12-20) BUN 23 H (9-16) mg/dL Creatinine 1.11 (0.5-1.4) mg/dL Estim Creat Clear Calc 46.5 Estimated GFR > 60 Random Glucose 161 H (60-115) mg/dL Lactic Acid 1.6 (0.5-2.0) mmol/L Calcium 9.8 D (8.4-10.2) mg/dL Urine Color Red A Urine Appearance Cloudy Urine pH 8.5 (5.0-9.0) Ur Specific [place] 1.010 (1.005-1.025) Urine Protein 300 (3+) H (Neg-Trace) mg/dL Urine Glucose (UA) See Note (Negative) mg/dL Urine Ketones See Note (Negative) mg/dL Urine Blood Large (3+) H (Negative) Urine Nitrite See Note (Negative) Ur Leukocyte Esterase Large (3+) H (Negative) Urine RBC >20 H (0-2) /HPF Urine WBC >50 H (0-5) /HPF Ur Squamous Epith Cells 0-2 (0-2) /HPF Other Crystals Present Urine Bacteria 4+ (None Seen) Hyaline Casts 3-5 (0-2) /LPF Independent Interpretation I performed an independent interpretation of an: CT Scan (no stone) Radiology Impression Discussion of test interpretation with radiology: I have reviewed the radiologist's reading. Independent Historian Clinical information obtained from an independent historian. History obtained from or confirmed by: EMS External Record Review External record reviewed: Inpatient record and Outpatient record Discharge Plan Discharge Clinical Impression: Acute UTI, Complication, blocked King catheter, Hematuria Patient Disposition: Admitted As Inpatient Prescriptions: No Action isosorbide mononitrate 60 mg tablet extended release 24 hr 60 mg PO DAILY Qty: 90 3RF atenolol 25 mg Tablet 25 mg PO DAILY albuterol sulfate 2.5 mg /3 mL (0.083 %) solution for nebulization 2.5 mg inhalation Q6H PRN (Reason: for dyspnea) amlodipine 10 mg tablet 10 mg PO DAILY acetaminophen 325 mg tablet 650 mg PO Q6H PRN (Reason: Fever Or Pain) lidocaine [Lidocaine Pain Relief] 4 % adhesive patch,medicated 1 patch transdermal DAILY PRN (Reason: Pain) Protocol: Apply to: Apply to: Left lower back guaifenesin [Mucinex] 600 mg Tablet Extended Release 12hr 600 mg PO BID Qty: 20 0RF Sore Throat (benzocaine-menth) 15-3.6 mg Lozenge 1 aure mucous membrane Q2H PRN (Reason: Sore Throat) Qty: 18 0RF prednisone 10 mg tablet 10 mg PO DIRECTED Qty: 30 0RF Rx Instructions: see taper instructions; 40 mg Daily x3 days, 30 mg daily x3 days, 20 mg daily x3 days, 10 mg daily x3 days albuterol sulfate 90 mcg/actuation HFA aerosol inhaler 2 puff inhalation QID PRN (Reason: SOB) montelukast 10 mg tablet 10 mg PO DAILY 30 Days Qty: 30 11RF aspirin 81 mg tablet,delayed release (DR/EC) 81 mg PO DAILY pantoprazole [Protonix] 20 mg tablet,delayed release (DR/EC) 20 mg PO DAILY@0630 gabapentin 100 mg capsule 200 mg PO TID oxycodone-acetaminophen 5-325 mg tablet 1 tab PO QID PRN (Reason: Pain (Scale Score 1-3)) fluticasone propionate 50 mcg/actuation spray,suspension 1 spray intranasal DAILY (DME) nebulizers Misc See Rx Instructions .Route Rx Instructions: As directed (DME) Oxygen Home Use Kit See Rx Instructions .Route Rx Instructions: As directed furosemide 20 mg tablet 20 mg PO BID@0900,1400 Trelegy Ellipta 200-62.5-25 mcg blister with device 1 inh inhalation DAILY 30 Days Qty: 60 12RF azithromycin 250 mg tablet 250 mg PO 3XW 28 Days Qty: 12 6RF Rx Instructions: Take 1 tablet on Thursday/Thursday/Thursday Eliquis 5 mg tablet 5 mg PO BID Trelegy Ellipta 100-62.5-25 mcg blister with device 1 ea inhalation DAILY 30 Days Qty: 60 11RF Print Language: Maori
--- NOTE | 2024-07-08 08:14 | PC.NURSE ---
16fr king cath removed - no output i king bag. patient voiding small amount of blood. 3 way 22 fr 35ml bllon placed with immediate output of 800mls bloody urine. CBI initiated
[2024-07-08 08:25] LABS: Appearance Urine Cloudy; Leukocyte Esterase Urine Large (3+) (Negative); PH 8.5 (5.0-9.0); UMIC TRIGGER UACC YES; Urine Blood Large (3+) (Negative); Urine Protein 300 (3+) mg/dL (Neg-Trace)
[2024-07-08 08:29] LABS: Color Urine Red
[2024-07-08 08:33] LABS: Bacteria Urine 4+ (None Seen); RBC Urine >20 /HPF (0-2); Squamous Epithelial Cell Urine 0-2 /HPF (0-2); UACC Culture Trigger YES; WBC Urine >50 /HPF (0-5)
[2024-07-08 08:34] LABS: Other Crystals Urine Present
--- OUTSIDE RECORDS SUMMARY | 2024-07-08 08:47 | XMS_ITS ---
Author Organization [facility] Address Unknown Allergies, Adverse Reactions, Alerts Substance Reaction Status Noted Date Resolved Date Latex active 06/02/2024 Ibuprofen active 06/02/2024 Medications Medication Dose Frequency Directions Start Date End [place] e Eliquis Oral Tablet 5 MG 5 mg 12 h Give 5 mg by mouth two times a day for blood thinner 06/03/2024 Lasix Oral Tablet 20 MG 20 mg 24 h Give 20 mg by mouth one time a day for fluid overload 06/03/2024 Trelegy Ellipta Inhalation Aerosol Powder Breath Activated 200-62.5-25 MCG/ACT 1 24 h 1 puff inhale orally one time a day for COPD 06/03/2024 Cyclobenzaprine HCl Oral Tablet 10 MG 10 mg 8 h Give 10 mg by mouth three times a day for muscle spasms 06/02/2024 ProAir HFA Inhalation Aerosol Solution 108 (90 Base) MCG/ACT 2 2 puff inhale orally every 4 hours as needed for wheezing/ SOB 06/02/2024 Gabapentin Oral Capsule 100 MG 2 {Capsule} 8 h Give 2 capsule by mouth three times a day for pain 06/02/2024 amLODIPine Besylate Oral Tablet 5 MG 5 mg 24 h Give 5 mg by mouth one time a day for HTN 06/03/2024 Fleet Enema Enema 7-19 GM/118ML 1 {Dose} Insert 1 dose rectally as needed for Constipation (Step 3) as needed if no bowel movement for 8 hours after bisacodyl suppository. 06/02/2024 Milk of Magnesia Suspension 400 MG/5ML 30 mL Give 30 ml by mout h as needed for Constipation (Step 1) As needed if no bowel movement for three days. (Do not use for Hemodialysis patients). 06/02/2024 Bisacodyl Suppository 10 MG 1 Insert 1 suppository rectally as needed for If no bowel movement for 8 hours after Milk of Magnesia 06/02/2024 Atenolol Oral Tablet 25 MG 25 mg 24 h Give 25 mg by mouth one time a day for HTN 06/03/2024 Pantoprazole Sodium Oral Tablet Delayed Release 20 MG 20 mg Give 20 mg by mouth in the morning for GERD 06/03/2024 Aspirin Oral Capsule 81 MG 81 mg 24 h Give 81 mg by mouth one time a day for preventative 06/03/2024 Isosorbide Mononitrate ER Oral Tablet Extended Release 24 Hour 60 MG 60 mg 24 h Give 60 mg by mouth one time a day for chest pain/ aortic stenosis 06/03/2024 Montelukast Sodium Oral Tablet 10 MG 10 mg 24 h Give 10 mg by mouth one time a day for copd/asthma 06/03/2024 Albuterol Sulfate Nebulization Solution (2.5 MG/3ML) 0.083% 1 1 vial inhale orally via nebulizer every 6 hours as needed for shortness of breath Pre and Post assessmentLung Sound childs:1.clear2.wheezes3 .rhonchi4.crackles5.d iminished 06/02/2024 Fluticasone Propionate Nasal Suspension 50 MCG/ACT 1 24 h 1 spray in both nostrils one time a day for allergies 06/03/2024 predniSONE Oral Tablet 20 MG 40 mg Give 40 mg by mouth in the morning related to SPINAL STENOSIS, SITE UNSPECIFIED (M48.00);PAIN IN LEFT HIP (M25.552) for 5 Days 06/04/2024 06/09/2024 Acetaminophen Tablet 325 MG 650 mg 6 h Give 650 mg by mouth four times a day related to SPINAL STENOSIS, SITE UNSPECIFIED (M48.00);PAIN IN LEFT HIP (M25.552) max 24 hr dose of 3,000 mg 06/03/2024 oxyCODONE HCl Oral Tablet 5 MG 5 mg Give 5 mg by mouth every 6 hours as needed for pain 06/03/2024 oxyCODONE HCl Oral Tablet 5 MG 5 mg Give 5 mg by mouth i n the morning related to PAIN IN LEFT HIP (M25.552);PRESENCE OF ARTIFICIAL HIP JOINT, 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 07/01/2024 Lasix Oral Tablet 20 MG 20 mg 24 h 2024 Trelegy Ellipta Inhalation Aerosol Powder Breath Activated 200-62.5-25 MCG/ACT 1 24 h 06/30/2024 Cyclobenzaprine HCl Oral Tablet 10 MG 10 mg 8 h Other / See Progress Notes?? 07/01/2024 ProAir HFA Inhalation Aerosol Solution 108 (90 Base) MCG/ACT 2 06/02/2024 Gabapentin Oral Capsule 100 MG 2 {Capsule} 8 h Other / See Progress Notes?? 07/01/2024 amLODIPine Besylate Oral Tablet 5 MG 5 mg 24 h 06/30/2024 Fleet Enema Enema 7-19 GM/118ML 1 {Dose} 06/02/2024 Milk of Magnesia Suspension 400 MG/5ML 30 mL 06/02/2024 Bisacodyl Suppository 10 MG 1 06/02/2024 Atenolol Oral Tablet 25 MG 25 mg 24 h 06/30/2024 Pantoprazole Sodium Oral Tablet Delayed Release 20 MG 20 mg 06/30/2024 Aspirin Oral Capsule 81 MG 81 mg 24 h 06/30/2024 Isosorbide Mononitrate ER Oral Tablet Extended Release 24 Hour 60 MG 60 mg 24 h 06/30/2024 Montelukast Sodium Oral Tablet 10 MG 10 mg 24 h 06/30/2024 Albuterol Sulfate Nebulization Solution (2.5 MG/3ML) 0.083% 1 06/04/2024 Fluticasone Propionate Nasal Suspension 50 MCG/ACT 1 24 h 06/30/2024 predniSONE Oral Tablet 20 MG 40 mg 06/08/2024 Acetaminophen Tablet 325 MG 650 mg 6 h Other / See Progress Notes?? 07/01/2024 oxyCODONE HCl Oral Tablet 5 MG 5 mg 06/03/2024 oxyCODONE HCl Oral Tablet 5 MG 5 mg 06/30/2024 Tamsulosin HCl Oral Capsule 0.4 MG 1 {Capsule} 24 h 06/30/2024 DuoNeb Solution 0.5-2.5 (3) MG/3ML 1 {Dose} 8 h 06/23/2024 Problems Problem Status Start Date End Date SPINAL STENOSIS, SITE UNSPEC IFIED (Primary) (M48.00 - ICD-10-CM) ACTIVE 06/02/2024 PAIN IN LEFT HIP (M25.552 - ICD-10-CM) ACTIVE RETENTION OF URINE, UNSPECIFIED (R33.9 - ICD-10-CM) AC TIVE 06/02/2024 CHRONIC OBSTRUCTIVE PULMONAR Y DISEASE, UNSPECIFIED (J44.9 - ICD-10-CM) ACTIVE 06/02/2024 MUSCLE WEAKNESS (GENERALIZED) (M62.81 - ICD-10-CM) ACT AYESHA 06/02/2024 DORSALGIA, UNSPECIFIED (M54.9 - ICD-10-CM) ACTIVE 06/02/2024 PAIN IN UNSPECIFIED HIP (M25.559 - ICD-10-CM) ACTIVE 06/02/2024 OTHER LACK OF COORDINATION (R27.8 - ICD-10-CM) ACTIVE 06/02/2024 DYSPHAGIA, UNSPECIFIED (R13.10 - ICD-10-CM) ACTIVE 06/02/2024 ADJUSTMENT DISORDER, UNSPECIFIED (F43.20 - ICD-10-CM) ACTIVE 06/08/2024 PRESENCE OF UROGENITAL IMPLANTS (Z96.0 - ICD-10-CM) AC TIVE 06/06/2024 WEAKNESS (R53.1 - ICD-10-CM) ACTIVE 06/02/2024 PRESENCE OF PROSTHETIC HEART VALVE (Z95.2 - ICD-10-CM) ACTIVE 06/02/2024 UNSPECIFIED OSTEOARTHRITIS, UNSPECIFIED SITE (M19.90 - ICD-10-CM) ACTIVE 06/02/2024 CHRONIC RESPIRATORY FAILURE WITH HYPOXIA (J96.11 - ICD-10-CM) ACTIVE 06/02/2024 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 - ICD-10-CM) ACTIVE 06/02/2024 NONRHEUMATIC AORTIC (VALVE) STENOSIS (I35.0 - ICD-10-C M) ACTIVE 06/02/2024 CHRONIC TENSION-TYPE HEADACH E, 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) ACTIVE 06/02/2024 OBSTRUCTIVE SLEEP APNEA (DULCE LT) (PEDIATRIC) (G47.33 - ICD-10-CM) ACTIVE 06/02/2024 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 Pulmonary vasculature is within normal limits. Prominent lung markings. Pleura: No pneumothorax. No pleural effusion. Heart and Mediastinum: The cardiomediastinal silhouette is normal in size and contour.CONCLUSION: No acute cardiopulmonary process.ELECTRONICALLY SIGNED BY NICOL TOLLIVER M.D. 06/21/2024 2:38:46 PM EST.Reason for Study: R05.1 ACUTE COUGHPrincipal Result Floorhand: NICOL TOLLIVER ([id number])Adjunct Psychology Professor: DAVID HENDRIX ([id number])Institution Librarian Adjunct Psychology Professor: JOLLY 06/21/2024 02:39 pm EST Encounters Encounter Performer Performer Role Encounter Diagnoses Location Date Discharge - Discharged to home or self care - HOME - Home [facility] 5 10:18 am EST - 06:00 pm EST Immunizations Vaccine Date Influenza-High Dose(Flublok) PVC20 COVID-19, mRNA, LNP-S, PF, truman-sucrose, 30 mcg/0.3 mL Social History Vital Signs Vital Sign Reading Time Taken painLevel 0 {score} 06/30/2024 04:53 pm EST painLevel 0 {score} 06/30/2024 04:52 pm EST painLevel 0 {score} 06/30/2024 02:04 pm EST painLevel 2 {score} 06/30/2024 12:39 pm EST painLevel 2 {score} 06/30/2024 08:15 am EST painLevel 2 {score} 06/30/2024 08:14 am EST painLevel 0 {score} 06/30/2024 12:52 am EST painLevel 0 {score} 06/29/2024 08:01 pm EST painLevel 0 {score} 06/29/2024 05:28 pm EST painLevel 0 {score} 06/29/2024 03:51 pm EST painLevel 2 {score} 06/29/2024 02:21 pm EST painLevel 2 {score} 06/29/2024 02:21 pm EST painLevel 0 {score} 06/29/2024 12:29 pm EST painLevel 3 {score} 06/29/2024 08:37 am EST painLevel 3 {score} 06/29/2024 08:37 am EST painLevel 0 {score} 06/28/2024 11:33 pm EST painLevel 0 {score} 06/28/2024 08:05 pm EST painLevel 0 {score} 06/28/2024 05:02 pm EST painLevel 0 {score} 06/28/2024 03:57 pm EST painLevel 0 {score} 06/28/2024 01:41 pm EST oxygenSaturation 96 % 06/30/2024 04:5 3 pm EST oxygenSaturation 97 % 06/30/2024 02:0 3 pm EST oxygenSaturation 96 % 06/30/2024 08:4 4 am EST oxygenSaturation 95 % 06/30/2024 12:5 2 am EST oxygenSaturation 96 % 06/29/2024 03:5 0 pm EST oxygenSaturation 2 % 06/29/2024 02:2 1 pm EST oxygenSaturation 95 % 06/29/2024 12:2 9 pm EST oxygenSaturation 96 % 06/28/2024 11:3 2 pm EST oxygenSaturation 96 % 06/28/2024 03:5 7 pm EST oxygenSaturation 96 % 06/28/2024 01:4 5 pm EST oxygenSaturation 97 % 06/28/2024 01:4 1 pm EST respirations 18 /min 06/30/2024 04:53 pm EST respirations 16 /min 06/30/2024 02:03 pm EST respirations 20 /min 06/30/2024 08:44 am EST respirations 18 /min 06/30/2024 12:52 am EST respirations 18 /min 06/29/2024 03:50 pm EST respirations 97 /min 06/29/2024 02:21 pm EST respirations 16 /min 06/29/2024 12:29 pm EST respirations 18 /min 06/28/2024 11:32 pm EST respirations 18 /min 06/28/2024 03:57 pm EST respirations 18 /min 06/28/2024 01:41 pm EST heartrate 82 /min 06/30/2024 08:44 am EST heartrate 77 /min 06/29/2024 12:29 pm EST heartrate 91 /min 06/28/2024 01:45 pm EST temperature 98.1 [degF] 06/30/2024 08:44 am EST temperature 97.9 [degF] 06/29/2024 12:29 pm EST temperature 98.6 [degF] 06/28/2024 01:45 pm EST systolicValue 129 mm[Hg] 06/30/2024 08:44 am EST diastolicValue 68 mm[Hg] 06/30/2024 08:44 am EST systolicValue 120 mm[Hg] 06/29/2024 12:29 pm EST diastolicValue 68 mm[Hg] 06/29/2024 12:29 pm EST systolicValue 112 mm[Hg] 06/28/2024 01:45 pm EST diastolicValue 68 mm[Hg] 06/28/2024 01:45 pm EST
--- OUTSIDE RECORDS SUMMARY | 2024-07-08 08:47 | XMS_ITS | Encounter Summary ---
Author Organization [employer] [facility] Address [address] [place] [address] Care Team Providers Care Manager Payroll Name Role Phone Lennie Aviles MD Primary Care Provider + Encounter Details Date Type Department Care Team (Late st Contact Info) Description 06/24/2024 Lab Requisition [facility] - Main Lab 299 [place] [address] Lennie Aviles MD [address] [phone] Essential (primary) hypertension Social History Tobacco Use Types Packs/Day Years Used Date Smoking Tobacco: Never Assessed Sex and Gender Information Value Date Recorded Sex Assigned at Not on file Legal Sex Male 3:06 AM EST Gender Identity Not on file Sexual Orientation Not on file documented as of this encounter Plan of Treatment Not on file documented as of this encounter Procedures Procedure Name Priority Date/Time Associated Diagnosis Comments COMPLETE BLOOD COUNT Routine 06/27/2024 9:15 AM EST Essential (primary) hypertension COMPREHENSIVE METABOLIC PANEL Routine 06/27/2024 9:15 AM EST Essential (primary) hypertension documented in this encounter Results * (ABNORMAL) Comprehensive metabolic panel (06/27/2024 9:15 AM EST) Sodium 142 133 - 145 mmol/L LAB CHEMISTRY METHOD 06/27/2024 1:32 PM EST [facility] Potassium 3.7 3.5 - 5.5 mmol/L LAB CHEMISTRY METHOD 06/27/2024 1:32 PM EST [facility] Chloride 105 96 - 110 mmol/L LAB CHEMISTRY METHOD 06/27/2024 1:32 PM [facility] CO2 28 21 - 32 mmol/L LAB CHEMISTRY METHOD 06/27/2024 1:32 PM [facility] Anion Gap 9 3 - 11 LAB CHEMISTRY METHOD 06/27/2024 1:32 PM [facility] Glucose 140(H) 70 - 100 mg/dL LAB CHEMISTRY METHOD 06/27/2024 1:32 PM [facility] BUN 16 5 - 25 mg/dL LAB CHEMISTRY METHOD 06/27/2024 1:32 PM [facility] Creatinine 0.94 0.70 - 1.30 mg/dL LAB CHEMISTRY METHOD 06/27/2024 1:32 PM [facility] eGFR 80 >=60 mL/min/1. 73m2 LAB CHEMISTRY METHOD 06/27/2024 1:32 PM [facility] Comment:Calculation based on the??Chronic Kidney Disease Epidemiology Collaboration (CKD-EPI) equation refit??without adjustment for race. BUN/Creatinine Ratio 17.0 LAB CHEMISTRY METHOD 06/27/2024 1:32 PM [facility] Calcium 9.1 8.5 - 10.5 mg/dL LAB CHEMISTRY METHOD 06/27/2024 1:32 PM [facility] AST (SGOT) 10 10 - 42 unit/L LAB CHEMISTRY METHOD 06/27/2024 1:32 PM [facility] ALT (SGPT) 17 10 - 60 unit/L LAB CHEMISTRY METHOD 06/27/2024 1:32 PM [facility] Alkaline Phosphatase 69 42 - 121 unit/L LAB CHEMISTRY METHOD 06/27/2024 1:32 PM [facility] Total Protein 6.2 6.0 - 8.0 g/dL LAB CHEMISTRY METHOD 06/27/2024 1:32 PM [facility] Albumin 2.8(L) 3.2 - 5.0 g/dL LAB CHEMISTRY METHOD 06/27/2024 1:32 PM [facility] Total Bilirubin 0.3 0.0 - 1.4 mg/dL LAB CHEMISTRY METHOD 06/27/2024 1:32 PM [facility] Blood Venous blood specimen / Unknown Venipuncture / Unknown 06/27/2024 9:15 AM EST 06/27/2024 10:57 AM EST us Lennie Aviles MD LAB BLOOD ORDERABLES Fin al Result [facility] [address] [place] [address], * (ABNORMAL) Complete blood count (06/27/2024 9:15 AM EST) WBC 7.2 4.8 - 10.8 K/mcL LAB HEMETOLOGY METHOD 06/27/2024 12:37 PM [facility] RBC 4.40(L) 4.50 - 5.50 M/mcL LAB HEMETOLOGY METHOD 06/27/2024 12:37 PM [facility] Hemoglobin 12.4(L) 13.5 - 17.5 g/dL LAB HEMETOLOGY METHOD 06/27/2024 12:37 PM [facility] Hematocrit 40.2(L) 42.0 - 54.0 % LAB HEMETOLOGY METHOD 06/27/2024 12:37 PM [facility] MCV 91.2 79.0 - 98.0 FL LAB HEMETOLOGY METHOD 06/27/2024 12:37 PM [facility] MCH 28.1 27.0 - 32.0 pcg LAB HEMETOLOGY METHOD 06/27/2024 12:37 PM [facility] MCHC 30.8(L) 32.0 - 37.0 g/dL LAB HEMETOLOGY METHOD 06/27/2024 12:37 PM [facility] RDW 13.2 11.0 - 15.0 % LAB HEMETOLOGY METHOD 06/27/2024 12:37 PM EST [facility] Platelets 207 130 - 400 K/mcL LAB HEMETOLOGY METHOD 06/27/2024 12:37 PM [facility] MPV 9.5 7.0 - 11.0 FL LAB HEMETOLOGY METHOD 06/27/2024 12:37 PM EST [facility] NRBC 0.0 <1.0 % LAB HEMETOLOGY METHOD 06/27/2024 12:37 PM [facility] NRBC Absolute 0.00 <0.10 K/mcL LAB HEMETOLOGY METHOD 06/27/2024 12:37 PM [facility] Blood Venous blood specimen / Unknown 06/27/2024 9:15 AM EST 06/27/2024 10:59 AM EST us Lennie Aviles MD LAB BLOOD ORDERABLES Fin al Result [facility] [address] [place] [address], documented in this encounter Visit Diagnoses Diagnosis Essential (primary) hypertension Unspecified essential hypertension documented in this encounter Care Teams Manager Payroll Relationship Specialty Start Date End Date Lennie Aviles MD [address] [place] [phone] PCP - General Family Medicine 06/12/24 documented as of this encounter
--- OUTSIDE RECORDS SUMMARY | 2024-07-08 08:47 | XMS_ITS | Encounter Summary ---
Author Organization [employer] [facility] Address [address] [place] [address] Care Team Providers Care Infrastructure Analyst Name Role Phone Lennie Aviles MD Primary Care Provider + Encounter Details Date Type Department Care Team (Late st Contact Info) Description 06/03/2024 Lab Requisition [facility] - Main Lab 299 [facility] [place] [address] Lennie Aviles MD [address] [phone] Essential (primary) hypertension Social History Tobacco Use [...] Associated Diagnosis Comments COMPLETE BLOOD COUNT Routine 06/06/2024 7:36 AM EST Essential (primary) hypertension COMPREHENSIVE METABOLIC PANEL Routine 06/06/2024 7:36 AM EST Essential (primary) hypertension documented in this encounter Results * (ABNORMAL) Comprehensive metabolic panel (06/06/2024 7:36 AM EST) Sodium 139 133 - 145 mmol/L LAB CHEMISTRY METHOD 06/06/2024 10:51 AM EST [facility] Potassium 4.3 3.5 - 5.5 mmol/L LAB CHEMISTRY METHOD 06/06/2024 10:51 AM EST [facility] Chloride 100 96 - 110 mmol/L LAB CHEMISTRY METHOD 06/06/2024 10:51 AM [facility] CO2 31 21 - 32 mmol/L LAB CHEMISTRY METHOD 06/06/2024 10:51 AM [facility] Anion Gap 8 3 - 11 LAB CHEMISTRY METHOD 06/06/2024 10:51 AM [facility] Glucose 153(H) 70 - 100 mg/dL LAB CHEMISTRY METHOD 06/06/2024 10:51 AM [facility] BUN 20 5 - 25 mg/dL LAB CHEMISTRY METHOD 06/06/2024 10:51 AM [facility] Creatinine 0.98 0.70 - 1.30 mg/dL LAB CHEMISTRY METHOD 06/06/2024 10:51 AM [facility] eGFR 76 >=60 mL/min/1. 73m2 LAB CHEMISTRY METHOD 06/06/2024 10:51 AM [facility] Comment:Calculation based on the??Chronic Kidney Disease Epidemiology Collaboration (CKD-EPI) equation refit??without adjustment for race. BUN/Creatinine Ratio 20.4 LAB CHEMISTRY METHOD 06/06/2024 10:51 AM [facility] Calcium 8.6 8.5 - 10.5 mg/dL LAB CHEMISTRY METHOD 06/06/2024 10:51 AM [facility] AST (SGOT) 37 10 - 42 unit/L LAB CHEMISTRY METHOD 06/06/2024 10:51 AM [facility] ALT (SGPT) 41 10 - 60 unit/L LAB CHEMISTRY METHOD 06/06/2024 10:51 AM [facility] Alkaline Phosphatase 71 42 - 121 unit/L LAB CHEMISTRY METHOD 06/06/2024 10:51 AM [facility] Total Protein 6.4 6.0 - 8.0 g/dL LAB CHEMISTRY METHOD 06/06/2024 10:51 AM [facility] Albumin 2.8(L) 3.2 - 5.0 g/dL LAB CHEMISTRY METHOD 06/06/2024 10:51 AM [facility] Total Bilirubin 0.3 0.0 - 1.4 mg/dL LAB CHEMISTRY METHOD 06/06/2024 10:51 AM [facility] Blood Venous blood specimen / Unknown Venipuncture / Unknown 06/06/2024 7:36 AM EST 06/06/2024 9:38 AM EST us Lennie Aviles MD LAB BLOOD ORDERABLES Fin al Result [facility] [address] [place] [address], * (ABNORMAL) Complete blood count (06/06/2024 7:36 AM EST) WBC 12.6(H) 4.8 - 10.8 K/mcL LAB HEMETOLOGY METHOD 06/06/2024 10:28 AM [facility] RBC 4.20(L) 4.50 - 5.50 M/mcL LAB HEMETOLOGY METHOD 06/06/2024 10:28 AM [facility] Hemoglobin 12.0(L) 13.5 - 17.5 g/dL LAB HEMETOLOGY METHOD 06/06/2024 10:28 AM [facility] Hematocrit 38.3(L) 42.0 - 54.0 % LAB HEMETOLOGY METHOD 06/06/2024 10:28 AM [facility] MCV 90.3 79.0 - 98.0 FL LAB HEMETOLOGY METHOD 06/06/2024 10:28 AM [facility] MCH 28.3 27.0 - 32.0 pcg LAB HEMETOLOGY METHOD 06/06/2024 10:28 AM [facility] MCHC 31.3(L) 32.0 - 37.0 g/dL LAB HEMETOLOGY METHOD 06/06/2024 10:28 AM [facility] RDW 13.1 11.0 - 15.0 % LAB HEMETOLOGY METHOD 06/06/2024 10:28 AM EST [facility] Platelets 330 130 - 400 K/mcL LAB HEMETOLOGY METHOD 06/06/2024 10:28 AM EST [facility] MPV 10.5 7.0 - 11.0 FL LAB HEMETOLOGY METHOD 06/06/2024 10:28 AM EST [facility] NRBC 0.0 <1.0 % LAB HEMETOLOGY METHOD 06/06/2024 10:28 AM EST [facility] NRBC Absolute 0.00 <0.10 K/mcL LAB HEMETOLOGY METHOD 06/06/2024 10:28 AM EST [facility] Blood Venous blood specimen / Unknown Venipuncture / Unknown 06/06/2024 7:36 AM EST 06/06/2024 9:37 AM EST us Lennie Aviles MD LAB BLOOD ORDERABLES Fin al Result [facility] [address] [place] [address], documented in this encounter Visit Diagnoses Diagnosis Essential (primary) hypertension Unspecified essential hypertension documented in this encounter Care Teams Infrastructure Analyst Relationship Specialty Start Date End Date Lennie Aviles MD [address] [place] [phone] PCP - General Family Medicine 06/12/24 documented as of this encounter
--- OUTSIDE RECORDS SUMMARY | 2024-07-08 08:47 | XMS_ITS | Encounter Summary ---
Author Organization [employer] Address [address] [place] [address] Care Team Providers Care Environmental Science Program Director Name Role Phone Lennie Aviles MD Primary Care Provider + Encounter Details Date Type Department Care Team (Late st Contact Info) Description 06/10/2024 Lab Requisition [facility] - Main Lab 299 [facility] [place] [address] Lennie Aviles MD [address] [phone] Essential (primary) hypertension Social History Tobacco Use [...] Associated Diagnosis Comments COMPLETE BLOOD COUNT Routine 06/13/2024 10:50 AM EST Essential (primary) hypertension COMPREHENSIVE METABOLIC PANEL Routine 06/13/2024 10:50 AM EST Essential (primary) hypertension documented in this encounter Results * (ABNORMAL) Complete blood count (06/13/2024 10:50 AM EST) WBC 13.3(H) 4.8 - 10.8 K/[facility] LAB HEMETOLOGY METHOD 06/13/2024 1:40 PM EST [facility] RBC 4.40(L) 4.50 - 5.50 M/[facility] LAB HEMETOLOGY METHOD 06/13/2024 1:40 PM EST [facility] Hemoglobin 12.7(L) 13.5 - 17.5 g/dL LAB HEMETOLOGY METHOD 06/13/2024 1:40 PM EST [facility] Hematocrit 41.5(L) 42.0 - 54.0 % LAB HEMETOLOGY METHOD 06/13/2024 1:[address] [facility] MCV 93.7 79.0 - 98.0 FL LAB HEMETOLOGY METHOD 06/13/2024 1:40 PM EST [facility] MCH 28.7 27.0 - 32.0 pcg LAB HEMETOLOGY METHOD 06/13/2024 1:[address] [facility] MCHC 30.6(L) 32.0 - 37.0 g/dL LAB HEMETOLOGY METHOD 06/13/2024 1:[address] [facility] RDW 13.5 11.0 - 15.0 % LAB HEMETOLOGY METHOD 06/13/2024 1:[address] [facility] Platelets 481(H) 130 - 400 K/mcL LAB HEMETOLOGY METHOD 06/13/2024 1:[address] [facility] MPV 9.9 7.0 - 11.0 FL LAB HEMETOLOGY METHOD 06/13/2024 1:[address] [facility] NRBC 0.0 <1.0 % LAB HEMETOLOGY METHOD 06/13/2024 1:[address] [facility] NRBC Absolute 0.00 <0.10 K/mcL LAB HEMETOLOGY METHOD 06/13/2024 1:[address] [facility] Blood Venous blood specimen / Unknown Venipuncture / Unknown 06/13/2024 10:50 AM EST 06/13/2024 12:26 PM EST us Lennie Aviles MD LAB BLOOD ORDERABLES Fin al Result [facility] [address] [place] [address], [place] [phone] * (ABNORMAL) Comprehensive metabolic panel (06/13/2024 10:50 AM EST) Sodium 139 133 - 145 mmol/L LAB CHEMISTRY METHOD 06/13/2024 2:[address] [facility] Potassium 4.4 3.5 - 5.5 mmol/L LAB CHEMISTRY METHOD 06/13/2024 2:[address] [facility] Chloride 105 96 - 110 mmol/L LAB CHEMISTRY METHOD 06/13/2024 2:[address] [facility] CO2 30 21 - 32 mmol/L LAB CHEMISTRY METHOD 06/13/2024 2:[address] [facility] Anion Gap 4 3 - 11 LAB CHEMISTRY METHOD 06/13/2024 2:[address] [facility] Glucose 135(H) 70 - 100 mg/dL LAB CHEMISTRY METHOD 06/13/2024 2:[address] [facility] BUN 24 5 - 25 mg/dL LAB CHEMISTRY METHOD 06/13/2024 2:[address] [facility] Creatinine 1.08 0.70 - 1.30 mg/dL LAB CHEMISTRY METHOD 06/13/2024 2:[address] [facility] eGFR 68 >=60 mL/min/1. 73m2 LAB CHEMISTRY METHOD 06/13/2024 2:[address] [facility] Comment:Calculation based on the??Chronic Kidney Disease Epidemiology Collaboration (CKD-EPI) equation refit??without adjustment for race. BUN/Creatinine Ratio 22.2 LAB CHEMISTRY METHOD 06/13/2024 2:[address] [facility] Calcium 9.1 8.5 - 10.5 mg/dL LAB CHEMISTRY METHOD 06/13/2024 2:[address] [facility] AST (SGOT) 13 10 - 42 unit/L LAB CHEMISTRY METHOD 06/13/2024 2:[address] [facility] ALT (SGPT) 34 10 - 60 unit/L LAB CHEMISTRY METHOD 06/13/2024 2:[address] [facility] Alkaline Phosphatase 79 42 - 121 unit/L LAB CHEMISTRY METHOD 06/13/2024 2:[address] [facility] Total Protein 6.6 6.0 - 8.0 g/dL LAB CHEMISTRY METHOD 06/13/2024 2:[address] [facility] Albumin 3.2 3.2 - 5.0 g/dL LAB CHEMISTRY METHOD 06/13/2024 2:[address] [facility] Total Bilirubin 0.3 0.0 - 1.4 mg/dL LAB CHEMISTRY METHOD 06/13/2024 2:[address] [facility] Blood Venous blood specimen / Unknown Venipuncture / Unknown 06/13/2024 10:50 AM EST 06/13/2024 12:26 PM EST us Lennie Aviles MD LAB BLOOD ORDERABLES Fin al Result [facility] [address] [place] [address], documented in this encounter Visit Diagnoses Diagnosis Essential (primary) hypertension Unspecified essential hypertension documented in this encounter Care Teams Environmental Science Program Director Relationship Specialty Start Date End Date Lennie Aviles MD [address] [place] [phone] PCP - General Family Medicine 06/12/24 documented as of this encounter
--- OUTSIDE RECORDS SUMMARY | 2024-07-08 08:47 | XMS_ITS | Clinical Summary ---
Author Organization [address] Address [address] [place] [address] Phone Care Team Providers Care Back Up Scan Coordinator Name Role Phone Lennie Aviles MD Primary Care Provider + Encounters Date Type Department Care Team Description 07/03/2024 Lab Requisition [facility] Lab [address] [place] [address] Lennie Aviles MD Essential (primary) hypertension 06/24/2024 Lab Requisition [facility] Lab [address] [place] [address] Lennie Aviles MD Essential (primary) hypertension 06/18/2024 Lab Requisition [facility] Lab [address] [place] [address] Lennie Aviles MD Essential (primary) hypertension 06/11/2024 Lab Requisition [facility] Lab [address] [place] [address] Lennie Aviles MD Frequency of micturition 06/10/2024 Lab Requisition [facility] Lab [address] [place] [address] Lennie Aviles MD Essential (primary) hypertension 06/03/2024 Lab Requisition [facility] Lab [address] [place] [address] Lennie Aviles MD Essential (primary) hypertension from Last 3 Months Social History Tobacco Use Types Packs/Day Years Used Date Smoking Tobacco: Never Assessed Sex and Gender Information Value Date Recorded Sex Assigned at Not on file Legal Sex Male 3:06 AM EST Gender Identity Not on file Sexual Orientation Not on file Plan of Treatment Health Maintenance Due Date Last Done Comments DTaP,Tdap,and Td Vaccines (1 - Tdap) 1959 Pneumococcal Vaccine: 50+ Years (1 of 2 - PCV) 1959 Zoster Vaccines (1 of 2) 1990 RSV Immunization Patients 60+ Years Old (1 - 1-dose 75+ series) 2015 COVID-19 Vaccine (1 - 2023- season) 2024 Influenza Vaccine (#1) 2024 Cholesterol Screening (Lipid Panel) 06/03/2024 Depression Screening 06/03/2024 Falls Risk Assessment 06/03/2024 Medicare Annual Wellness Visit 06/03/2024 Social Influencers of Health Screening 06/03/2024 Hypertension/CHF/CAD Annual BMP Blood Test 06/27/2025 06/27/2024, 06/20/2024, 06/13/2024, Additional history exists HIB Vaccines Aged Out No longer eligi ble based on patient's age to complete this topic HPV Vaccines Aged Out No longer eligi ble based on patient's age to complete this topic Hepatitis A Vaccines Aged Out No long er eligible based on patient's age to complete this topic Hepatitis B Vaccines Aged Out No long er eligible based on patient's age to complete this topic IPV Vaccines Aged Out No longer eligi ble based on patient's age to complete this topic MMR Vaccines Aged Out No longer eligi ble based on patient's age to complete this topic Meningococcal ACWY Vaccine Aged Out N o longer eligible based on patient's age to complete this topic Meningococcal B Vacine Aged Out No lo nger eligible based on patient's age to complete this topic RSV Immunization Patients Under 20 months Aged Out No longer eligible based on patient's age to complete this topic Varicella Vaccines Aged Out No longer eligible based on patient's age to complete this topic Procedures Procedure Name Priority Date/Time Associated Diagnosis Comments COMPREHENSIVE METABOLIC PANEL Routine 06/27/2024 9:15 AM EST Essential (primary) hypertension COMPLETE BLOOD COUNT Routine 06/27/2024 9:15 AM EST Essential (primary) hypertension COMPREHENSIVE METABOLIC PANEL Routine 06/20/2024 7:34 AM EST Essential (primary) hypertension COMPLETE BLOOD COUNT Routine 06/20/2024 7:34 AM EST Essential (primary) hypertension COMPLETE BLOOD COUNT Routine 06/13/2024 10:50 AM EST Essential (primary) hypertension COMPREHENSIVE METABOLIC PANEL Routine 06/13/2024 10:50 AM EST Essential (primary) hypertension URINALYSIS WITH REFLEX MICROSCOPIC Routine 06/11/2024 11:00 AM EST Frequency of micturition URINALYSIS WITH REFLEX MICROSCOPIC Routine 06/11/2024 11:00 AM EST Frequency of micturition CULTURE URINE Routine 06/11/2024 11:00 AM EST Frequency of micturition COMPREHENSIVE METABOLIC PANEL Routine 06/06/2024 7:36 AM EST Essential (primary) hypertension COMPLETE BLOOD COUNT Routine 06/06/2024 7:36 AM EST Essential (primary) hypertension from Last 3 Months Results * (ABNORMAL) Complete blood count (06/27/2024 9:15 AM EST) Only the most recent of4 resultswithin the time period is included. WBC 7.2 4.8 - 10.8 K/mcL LAB HEMETOLOGY METHOD 06/27/2024 12:37 PM [facility] RBC 4.40(L) 4.50 - 5.50 M/mcL LAB HEMETOLOGY METHOD 06/27/2024 12:37 PM [facility] Hemoglobin 12.4(L) 13.5 - 17.5 g/dL LAB HEMETOLOGY METHOD 06/27/2024 12:37 PM [facility] Hematocrit 40.2(L) 42.0 - 54.0 % LAB HEMETOLOGY METHOD 06/27/2024 12:[address] [facility] MCV 91.2 79.0 - 98.0 FL LAB HEMETOLOGY METHOD 06/27/2024 12:[address] [facility] MCH 28.1 27.0 - 32.0 pcg LAB HEMETOLOGY METHOD 06/27/2024 12:37 PM [facility] MCHC 30.8(L) 32.0 - 37.0 g/dL LAB HEMETOLOGY METHOD 06/27/2024 12:[address] [facility] RDW 13.2 11.0 - 15.0 % LAB HEMETOLOGY METHOD 06/27/2024 12:[address] [facility] Platelets 207 130 - 400 K/mcL LAB HEMETOLOGY METHOD 06/27/2024 12:[address] [facility] MPV 9.5 7.0 - 11.0 FL LAB HEMETOLOGY METHOD 06/27/2024 12:[address] [facility] NRBC 0.0 <1.0 % LAB HEMETOLOGY METHOD 06/27/2024 12:37 PM [facility] NRBC Absolute 0.00 <0.10 K/mcL LAB HEMETOLOGY METHOD 06/27/2024 12:37 PM [facility] Blood Venous blood specimen / Unknown 06/27/2024 9:15 AM EST 06/27/2024 10:59 AM EST us Lennie Aviles MD LAB BLOOD ORDERABLES Fin al Result [facility] [address] [place] [address], * (ABNORMAL) Comprehensive metabolic panel (06/27/2024 9:15 AM EST) Only the most recent of4 resultswithin the time period is included. Sodium 142 133 - 145 mmol/L LAB CHEMISTRY METHOD 06/27/2024 1:32 PM [facility] Potassium 3.7 3.5 - 5.5 mmol/L LAB CHEMISTRY METHOD 06/27/2024 1:32 PM [facility] Chloride 105 96 - 110 mmol/L LAB CHEMISTRY METHOD 06/27/2024 1:32 PM [facility] CO2 28 21 - 32 mmol/L LAB CHEMISTRY METHOD 06/27/2024 1:32 PM [facility] Anion Gap 9 3 - 11 LAB CHEMISTRY METHOD 06/27/2024 1:32 PM [facility] Glucose 140(H) 70 - 100 mg/dL LAB CHEMISTRY METHOD 06/27/2024 1:32 PM [facility] BUN 16 5 - 25 mg/dL LAB CHEMISTRY METHOD 06/27/2024 1:32 PM [facility] Creatinine 0.94 0.70 - 1.30 mg/dL LAB CHEMISTRY METHOD 06/27/2024 1:32 PM [facility] eGFR 80 >=60 mL/min/1. 73m2 LAB CHEMISTRY METHOD 06/27/2024 1:32 PM [facility] Comment:Calculation based on the??Chronic Kidney Disease Epidemiology Collaboration (CKD-EPI) equation refit??without adjustment for race. BUN/Creatinine Ratio 17.0 LAB CHEMISTRY METHOD 06/27/2024 1:32 PM [facility] Calcium 9.1 8.5 - 10.5 mg/dL LAB CHEMISTRY METHOD 06/27/2024 1:32 PM [facility] AST (SGOT) 10 10 - 42 unit/L LAB CHEMISTRY METHOD 06/27/2024 1:32 PM [facility] ALT (SGPT) 17 10 - 60 unit/L LAB CHEMISTRY METHOD 06/27/2024 1:32 PM [facility] Alkaline Phosphatase 69 42 - 121 unit/L LAB CHEMISTRY METHOD 06/27/2024 1:32 PM [facility] Total Protein 6.2 6.0 - 8.0 g/dL LAB CHEMISTRY METHOD 06/27/2024 1:32 PM [facility] Albumin 2.8(L) 3.2 - 5.0 g/dL LAB CHEMISTRY METHOD 06/27/2024 1:32 PM [facility] Total Bilirubin 0.3 0.0 - 1.4 mg/dL LAB CHEMISTRY METHOD 06/27/2024 1:32 PM [facility] Blood Venous blood specimen / Unknown Venipuncture / Unknown 06/27/2024 9:15 AM EST 06/27/2024 10:57 AM EST us Lennie Aviles MD LAB BLOOD ORDERABLES Fin al Result [facility] [address] [place] [address], [place] [phone] * (ABNORMAL) Urinalysis with reflex microscopic (06/11/2024 11:00 AM EST) Specific [place] Urine 1.015 1.003 - 1.030 LAB URINALYSIS - AUTOMATED METHOD 06/11/2024 12:55 PM [facility] pH, Urine 6.0 5.0 - 8.0 pH LAB URINALYSIS - AUTOMATED METHOD 06/11/2024 12:55 PM [facility] Leukocytes, Urine Trace(A) Negative LAB URINALYSIS - AUTOMATED METHOD 06/11/2024 12:55 PM [facility] Nitrite, Urine Negative Negative LAB URINALYSIS - AUTOMATED METHOD 06/11/2024 12:55 PM [facility] Protein, Urine 30(A) <=Trace mg/dL LAB URINALYSIS - AUTOMATED METHOD 06/11/2024 12:55 PM [facility] Glucose, Urine Negative Negative mg/dL LAB URINALYSIS - AUTOMATED METHOD 06/11/2024 12:55 PM [facility] Ketones, Urine Negative Negative mg/dL LAB URINALYSIS - AUTOMATED METHOD 06/11/2024 12:55 PM [facility] Urobilinogen , Urine 0.2 0.2 - 1.0 mg/dL LAB URINALYSIS - AUTOMATED METHOD 06/11/2024 12:55 PM [facility] Bilirubin, Urine Negative Negative LAB URINALYSIS - AUTOMATED METHOD 06/11/2024 12:55 PM [facility] Blood, Urine Large(A) Negative LAB URINALYSIS - AUTOMATED METHOD 06/11/2024 12:55 PM [facility] RBC, Urine >4,000(H) 0 - 4 /HPF LAB URINALYSIS - AUTOMATED METHOD 06/11/2024 12:55 PM [facility] WBC, Urine 44.7(H) 0 - 4 /HPF LAB URINALYSIS - AUTOMATED METHOD 06/11/2024 12:55 PM [facility] Squamous Epithelial, Urine 0 0 - 60 /LPF LAB URINALYSIS - AUTOMATED METHOD 06/11/2024 12:55 PM [facility] Bacteria, Urine Few(A) Negative /HPF LAB URINALYSIS - AUTOMATED METHOD 06/11/2024 12:55 PM [facility] Hyaline Casts, Urine 1.4 0 - 3 /LPF LAB URINALYSIS - AUTOMATED METHOD 06/11/2024 12:55 PM [facility] Urine Urine specimen obtained by clean catch procedure / Unknown 06/11/2024 11:00 AM EST 06/11/2024 11:58 AM EST us Lennie Aviles MD LAB URINE ORDERABLES Fin al Result [facility] [address] [place] [address], * Culture urine (06/11/2024 11:00 AM EST) Culture, Urine 10,000-49,000 CFU/mL Mixed bacterial morphotypes present suggestive of possible contamination during collection. Suggest appropriate recollection if clinically indicated. 06/13/2024 10:49 AM EST [facility] Urine Urine specimen obtained by clean catch procedure / Unknown 06/11/2024 11:00 AM EST 06/11/2024 11:58 AM EST us Lennie Aviles MD LAB MICROBIOLOGY - GENER AL ORDERABLES Final Result [facility] ([facility] [address] [place] [address], from Last 3 Months Insurance MEDICAID - [place] [employer] [place] MEDIC[place] ADVANTAGE Care Teams Back Up Scan Coordinator Relationship Specialty Start Date End Date Lennie Aviles MD [address] [phone] PCP - General Family Medicine 06/12/24
--- OUTSIDE RECORDS SUMMARY | 2024-07-08 08:47 | XMS_ITS | Encounter Summary ---
Author Organization [facility] Address [address] [place] [address] Care Team Providers Care Beekeeper Farmer Name Role Phone Lennie Aviles MD Primary Care Provider + Encounter Details Date Type Department Care Team (Late st Contact Info) Description 06/18/2024 Lab Requisition [facility] Lab [address] [facility] [place] [address] Lennie Aviles MD [address] [phone] Essential (primary) hypertension Social History Tobacco Use [...] Associated Diagnosis Comments COMPLETE BLOOD COUNT Routine 06/20/2024 7:34 AM EST Essential (primary) hypertension COMPREHENSIVE METABOLIC PANEL Routine 06/20/2024 7:34 AM EST Essential (primary) hypertension documented in this encounter Results * (ABNORMAL) Comprehensive metabolic panel (06/20/2024 7:34 AM EST) Sodium 139 133 - 145 mmol/L LAB CHEMISTRY METHOD 06/20/2024 2:09 PM EST [facility] Potassium 3.8 3.5 - 5.5 mmol/L LAB CHEMISTRY METHOD 06/20/2024 2:09 PM EST [facility] Chloride 104 96 - 110 mmol/L LAB CHEMISTRY METHOD 06/20/2024 2:09 PM [facility] CO2 30 21 - 32 mmol/L LAB CHEMISTRY METHOD 06/20/2024 2:09 PM [facility] Anion Gap 5 3 - 11 LAB CHEMISTRY METHOD 06/20/2024 2:09 PM [facility] Glucose 132(H) 70 - 100 mg/dL LAB CHEMISTRY METHOD 06/20/2024 2:09 PM [facility] BUN 14 5 - 25 mg/dL LAB CHEMISTRY METHOD 06/20/2024 2:09 PM [facility] Creatinine 0.90 0.70 - 1.30 mg/dL LAB CHEMISTRY METHOD 06/20/2024 2:09 PM [facility] eGFR 84 >=60 mL/min/1. 73m2 LAB CHEMISTRY METHOD 06/20/2024 2:09 PM [facility] Comment:Calculation based on the??Chronic Kidney Disease Epidemiology Collaboration (CKD-EPI) equation refit??without adjustment for race. BUN/Creatinine Ratio 15.6 LAB CHEMISTRY METHOD 06/20/2024 2:09 PM [facility] Calcium 8.4(L) 8.5 - 10.5 mg/dL LAB CHEMISTRY METHOD 06/20/2024 2:09 PM [facility] AST (SGOT) 13 10 - 42 unit/L LAB CHEMISTRY METHOD 06/20/2024 2:09 PM [facility] ALT (SGPT) 19 10 - 60 unit/L LAB CHEMISTRY METHOD 06/20/2024 2:09 PM [facility] Alkaline Phosphatase 68 42 - 121 unit/L LAB CHEMISTRY METHOD 06/20/2024 2:09 PM [facility] Total Protein 5.7(L) 6.0 - 8.0 g/dL LAB CHEMISTRY METHOD 06/20/2024 2:09 PM [facility] Albumin 2.7(L) 3.2 - 5.0 g/dL LAB CHEMISTRY METHOD 06/20/2024 2:09 PM [facility] Total Bilirubin 0.4 0.0 - 1.4 mg/dL LAB CHEMISTRY METHOD 06/20/2024 2:09 PM [facility] Blood Venous blood specimen / Unknown Venipuncture / Unknown 06/20/2024 7:34 AM EST 06/20/2024 12:04 PM EST us Lennie Aviles MD LAB BLOOD ORDERABLES Fin al Result [facility] [address] [place] [address], * (ABNORMAL) Complete blood count (06/20/2024 7:34 AM EST) WBC 9.2 4.8 - 10.8 K/mcL LAB HEMETOLOGY METHOD 06/20/2024 12:59 PM [facility] RBC 4.10(L) 4.50 - 5.50 M/mcL LAB HEMETOLOGY METHOD 06/20/2024 12:59 PM [facility] Hemoglobin 11.6(L) 13.5 - 17.5 g/dL LAB HEMETOLOGY METHOD 06/20/2024 12:59 PM [facility] Hematocrit 38.0(L) 42.0 - 54.0 % LAB HEMETOLOGY METHOD 06/20/2024 12:59 PM [facility] MCV 92.2 79.0 - 98.0 FL LAB HEMETOLOGY METHOD 06/20/2024 12:59 PM [facility] MCH 28.2 27.0 - 32.0 pcg LAB HEMETOLOGY METHOD 06/20/2024 12:59 PM [facility] MCHC 30.5(L) 32.0 - 37.0 g/dL LAB HEMETOLOGY METHOD 06/20/2024 12:59 PM [facility] RDW 13.8 11.0 - 15.0 % LAB HEMETOLOGY METHOD 06/20/2024 12:59 PM EST [facility] Platelets 277 130 - 400 K/mcL LAB HEMETOLOGY METHOD 06/20/2024 12:59 PM EST [facility] MPV 10.4 7.0 - 11.0 FL LAB HEMETOLOGY METHOD 06/20/2024 12:59 PM EST [facility] NRBC 0.0 <1.0 % LAB HEMETOLOGY METHOD 06/20/2024 12:59 PM [facility] NRBC Absolute 0.00 <0.10 K/mcL LAB HEMETOLOGY METHOD 06/20/2024 12:59 PM [facility] Blood Venous blood specimen / Unknown Venipuncture / Unknown 06/20/2024 7:34 AM EST 06/20/2024 12:04 PM EST us Lennie Aviles MD LAB BLOOD ORDERABLES Fin al Result [facility] [address] [place] [address], documented in this encounter Visit Diagnoses Diagnosis Essential (primary) hypertension Unspecified essential hypertension documented in this encounter Care Teams Beekeeper Farmer Relationship Specialty Start Date End Date Lennie Aviles MD [address] [place] [phone] PCP - General Family Medicine 06/12/24 documented as of this encounter
--- OUTSIDE RECORDS SUMMARY | 2024-07-08 08:47 | XMS_ITS | Encounter Summary ---
Author Organization [facility] Address [address] [place] [address] Care Team Providers Care Picking Machine Operator Helper Name Role Phone Lennie Aviles MD Primary Care Provider + Encounter Details Date Type Department Care Team (Late st Contact Info) Description 06/11/2024 Lab Requisition [facility] Lab [address] [facility] [place] [address] Lennie Aviles MD [address] [phone] Frequency of micturition Social History Tobacco Use Types Packs/Day Years [...] Procedure Name Priority Date/Time Associated Diagnosis Comments URINALYSIS WITH REFLEX MICROSCOPIC Routine 06/11/2024 11:00 AM EST Frequency of micturition URINALYSIS WITH REFLEX MICROSCOPIC Routine 06/11/2024 11:00 AM EST Frequency of micturition CULTURE URINE Routine 06/11/2024 11:00 AM EST Frequency of micturition documented in this encounter Results * (ABNORMAL) Urinalysis with reflex microscopic (06/11/2024 11:00 AM EST) Specific [place] Urine 1.015 1.003 - 1.030 LAB URINALYSIS - AUTOMATED METHOD 06/11/2024 12:55 PM EST [facility] pH, Urine 6.0 5.0 - [...] URINALYSIS - AUTOMATED METHOD 06/11/2024 12:55 PM EST [facility] Urine Urine specimen obtained by clean catch procedure / Unknown 06/11/2024 11:00 AM EST 06/11/2024 11:58 AM EST Lennie Aviles MD LAB URINE ORDERABLES Fin al Result Performing Organization Address [facility]/ZIP Co de Phone Number [facility] [address] [place] [address], [place] [phone] * Culture urine (06/11/2024 11:00 AM EST) Culture, Urine 10,000-49,000 CFU/mL Mixed bacterial morphotypes present suggestive of possible contamination during collection. Suggest appropriate recollection if clinically indicated. 06/13/2024 10:49 AM EST [facility] Urine Urine specimen obtained by clean catch procedure / Unknown 06/11/2024 11:00 AM EST 06/11/2024 11:58 AM EST Lennie Aviles MD LAB MICROBIOLOGY - GENER AL ORDERABLES Final Result Performing Organization Address [facility] Co de Phone Number [facility] [address] [place] [address], [place] [phone] documented in this encounter Visit Diagnoses Diagnosis Frequency of micturition Urinary frequency documented in this encounter Care Teams Picking Machine Operator Helper Relationship Specialty Start Date End Date Lennie Aviles MD [address] [place] [phone] PCP - General Family Medicine 06/12/24 documented as of this encounter
--- OUTSIDE RECORDS SUMMARY | 2024-07-08 08:47 | XMS_ITS | Encounter Summary ---
Author Organization [employer] Address [address] [place] [address] Care Team Providers Care Hand Ironer Name Role Phone Lennie Aviles MD Primary Care Provider + Encounter Details Date Type Department Care Team (Late st Contact Info) Description 07/03/2024 Lab Requisition [facility] Lab [address] [facility] [place] [address] Lennie Aviles MD [address] [address] Essential (primary) hypertension Social History Tobacco Use Types Packs/Day Years Used Date Smoking Tobacco: Never Assessed Sex and Gender Information Value Date Recorded Sex Assigned at Not on file Legal Sex Male 3:06 AM EST Gender Identity Not on file Sexual Orientation Not on file documented as of this encounter Plan of Treatment Not on file documented as of this encounter Visit Diagnoses Diagnosis Essential (primary) hypertension Unspecified essential hypertension documented in this encounter Care Teams Hand Ironer Relationship Specialty Start Date End Date Lennie Aviles MD [address] [place] [address] [phone] PCP - General Family Medicine 06/12/24 documented as of this encounter
--- NOTE | 2024-07-08 09:19 | PC.NURSE ---
Patient difficult stick 22 g iv placed in right hand. Multiple techs attempted to draw labs without success at this time,provider aware
[2024-07-08] MEDS: cefTRIAXone sodium 1 GM VIAL IVPUSH (09:39)
[2024-07-08 09:41] LABS: Basophils Absolute Auto 0.1 X10*3/uL (0.0-0.2); Basophils Percent Auto 0.6 % (0-2); Eosinophils Percent Auto 0.1 % (0-4); Hematocrit 41.9 % (42.0-52.0); Hemoglobin 13.1 g/dl (14.0-18.0); Imm Gran Abs Auto 0.06 X10*3/uL (0.00-0.03); Imm Gran Pct Auto 0.4 % (0.0-0.4); Lymphocytes Absolute Auto 0.5 X10*3/uL (1.2-4.9); MANUAL DIFF FLAG SCAN; Mean Corpuscular HGB Conc 31.3 g/dl (31.0-36.0); Mean Corpuscular Hemoglobin 27.8 pg (27.0-33.0); Mean Corpuscular Volume 88.8 fL (80.0-98.0); Mean Platelet Volume 9.4 fL (9.4-12.4); Monocytes Absolute Auto 1.7 X10*3/uL (0.1-1.2); Monocytes Percent Auto 10.4 % (2-11); Neutrophils Absolute Auto 14.2 x10*3/uL (2.0-8.3); Neutrophils Percent Auto 85.5 % (45-73); Platelet Count 381 X10*3/uL (160-400); Red Blood Count 4.72 X10*6/uL (4.60-5.80); Red Cell Distribution Width 13.3 % (11.0-16.0); SCAN SMEAR FLAG 1; White Blood Count 16.6 X10*3/uL (4.8-10.8)
--- NOTE | 2024-07-08 09:45 | PC.NURSE ---
CBI ouput pale pink- provider aware- pause CBI at this time. tech able to obtain blood cultures, medicted per mar
[2024-07-08 09:54] LABS: Anion Gap 15 (12-20); Blood Urea Nitrogen 23 mg/dL (9-16); Calcium 9.8 mg/dL (8.4-10.2); Carbon Dioxide 26 mmol/L (22-29); Chloride 102 mmol/L (96-108); Creatinine Clr Calc Pharmacy 46.5; Estimated Glomerular Filt Rate > 60; Glucose Random 161 mg/dL (60-115); Potassium 3.6 mmol/L (3.3-5.1); Sodium 139 mmol/L (135-145)
[2024-07-08 09:59] LABS: Lactic Acid 1.6 mmol/L (0.5-2.0)
[2024-07-08 10:14] LABS: SLIDE REVIEW VERIFIED
--- NOTE | 2024-07-08 10:45 | PC.NURSE ---
resumed CPI, urine with bright red blood in tubing
--- NOTE | 2024-07-08 10:47 | PC.NURSE ---
Daughter yazan updated on plan of care per patients request , daughter will call to reschedule apt patient had today
--- NOTE | 2024-07-08 11:29 | P.HPHOSP_ITS ---
History of Present Illness Date of Service: 07/08/24 Attending physician on admission: Sammy Segura Chief Complaint: Blocked urinary catheter Pt is an 84-year-old male with a PMH significant for?CAD w/hx of NSTEMI, COPD w/chronic hypoxemic respiratory failure on 2L home O2 at baseline, hx of DVT in 11/2023 on Eliquis, HFpEF, severe aortic stenosis s/p TAVR 01/04/2024, HTN, BPH, and hx of 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 Pt with longstanding hx of urinary retention and has had chronic indwelling catheter. Pt reports presented from home at [facility] about a month ago to have his catheter changed. Was discharged to [facility] where he stayed for a few weeks and was discharged back home approximately 2 weeks ago. While at rehab pt had his Bhatia catheter changed 3 weeks ago. Reports yesterday began experiencing suprapubic pain and has not had any drainage in Bhatia since then. Notes has occasionally seen blood in his Bhatia bag, but would clear up on its own after only a short period time. Last noticed hematuria 2 days ago. In the ED pt had catheter replaced which was noted to include a great deal of sediment and hematuria. Pt was placed on CBI in the ED. pt himself denies any other acute medical complaints. No fever or chills. Denies shortness or breath, difficulty breathing, or cough above baseline. No nausea or vomiting. Denies diarrhea. In the ED pt was tachycardic up to 117, vitals otherwise stable and WNL. Labs overall grossly unremarkable and around baseline for pt. Chronically elevated leukocytosis of 16.6 around baseline. Stable normocytic anemia. No significant electrolyte abnormalities. Renal function around baseline. UA consistent with UTI. CT of abdomen/pelvis negative for nephrolithiasis or ureteral obstruction. Pt was placed on CBI and treated with ceftriaxone. Pt will be admitted to the hospital for treatment and further evaluation of hematuria requiring CBI. Review of Systems 2 Review of Systems: Negative except for that which is stated in the [facility] Medical History Presence of prosthetic heart valve Aortic stenosis Bacteriuria Congestive heart disease Chronic lung disease Chronic respiratory failure Pre-op chest exam Inferior NH Pneumonitis Pulmonary nodules BPH (benign prostatic hyperplasia) COPD (chronic obstructive pulmonary disease) Pneumonia HTN (hypertension) Family History Mother CAD (coronary artery disease) Heart attack Father HTN (hypertension) Brother H/O heart bypass surgery Sister Afib Surgical History S/P cardiac catheterization History of carpal tunnel surgery of right wrist Hx of cardiac cath Social History Household Members: Spouse and Family Housing: House Do you presently have visiting nurse or other home services: Yes (rfp writer) Alcohol intake: former Patient Tobacco Use Status: Former Tobacco user Tobacco use type: Cigarette e-Cigarette/Vaping Use: Never Used Second Hand Smoke Exposure: Yes (family smokes in the house) Use of substances other than those prescribed or required for medical reasons: No Advance Directives: Yes Advance Directives on File: Yes Advance Directives Date on File: 08/18/23 Do you have a plan to hurt others: No Plan service: No Current occupational status: retired [employer] Allergies Allergy/AdvReac Type Severity Reaction Status Date / Time ibuprofen Allergy Mild Gastrointestinal Verified 07/08/24 07:35 Upset Home Medications ?Medication ?Instructions ?Recorded ?Confirmed ?Last Taken ?Type atenolol 25 mg tablet 25 mg PO DAILY 06/19/20 04/03/24 04/01/24 History aspirin 81 mg tablet,delayed 81 mg PO DAILY 11/19/20 04/03/24 04/01/24 History release pantoprazole 20 mg tablet,delayed 20 mg PO DAILY@0630 11/19/20 04/03/24 04/01/24 History release (Protonix) fluticasone propionate 50 1 spray intranasal DAILY Congestion 02/12/21 04/03/24 04/01/24 History mcg/actuation nasal spray,suspension oxycodone-acetaminophen 5 mg-325 1 tab PO QID PRN Pain (Scale Score 02/12/21 04/03/24 12/17/23 History mg tablet 1-3) nebulizers 10/15/22 02/23/24 Unknown History Oxygen Home Use 01/08/23 02/23/24 Unknown History gabapentin 100 mg capsule 200 mg PO TID 04/10/23 04/03/24 04/01/24 History albuterol sulfate 2.5 mg/3 mL 2.5 mg inhalation Q6H PRN for 08/17/23 04/03/24 12/17/23 History (0.083 %) solution for nebulization dyspnea albuterol sulfate 90 mcg/actuation 2 puff inhalation QID PRN SOB 12/18/23 04/03/24 12/17/23 History aerosol inhaler furosemide 20 mg tablet 20 mg PO BID@0900,1400 02/16/24 04/03/24 04/01/24 History apixaban 5 mg tablet (Eliquis) 5 mg PO BID 02/23/24 04/03/24 Unknown History acetaminophen 325 mg tablet 650 mg PO Q6H PRN Fever Or Pain 04/03/24 04/03/24 Unknown History amlodipine 10 mg tablet 10 mg PO DAILY 04/03/24 04/03/24 04/01/24 History lidocaine 4 % topical patch 1 patch transdermal DAILY PRN Pain 04/03/24 04/03/24 Unknown History (Lidocaine Pain Relief) azithromycin 250 mg tablet mg 3XW 07/08/24 Unknown History tamsulosin 0.4 mg capsule mg PO DAILY 07/08/24 Unknown History Physical Exam 2 Vital Signs and Narrative: Vital Signs: Last Vital Signs Temp 98 F 07/08/24 09:48 Pulse 99 07/08/24 09:48 Resp 18 07/08/24 09:48 BP 133/76 07/08/24 09:48 Pulse Ox 95 07/08/24 09:48 O2 Del Method Nasal Cannula 07/08/24 09:48 O2 Flow Rate 2 07/08/24 09:48 BMI result Body Mass Index 29.2 General: AOx3, no acute distress Resp: CTA bilaterally CVS: S1, S2, RRR GI: +BS, no distention, suprapubic tenderness : Gross hematuria in Bhatia Skin: Warm, dry Neuro: Cranial nerves II-XII grossly intact bilaterally. Motor grossly intact bilaterally. Global weakness Extremities: No edema Psych: Appropriate affect Results Labs 07/08/24 09:31 07/08/24 09:32 Labs: Laboratory Results - last 24 hr 07/08/24 07/08/24 07/08/24 08:18 09:31 09:32 MCV 88.8 MCH 27.8 MCHC 31.3 RDW 13.3 Plt Count 381 D MPV 9.4 Immature Gran % (Auto) 0.4 Neut % (Auto) 85.5 H Lymph % (Auto) 3.0 L [place] % (Auto) 10.4 Eos % (Auto) 0.1 Baso % (Auto) 0.6 Lymph # (Auto) 0.5 L [place] # (Auto) 1.7 H Eos # (Auto) 0.0 Baso # (Auto) 0.1 Abs Immat Gran (auto) 0.06 H Absolute Neuts (auto) 14.2 H Absolute Nucleated RBC 0.000 Nucleated RBC % (auto) 0.0 Smear Tech's Comments VERIFIED Anion Gap 15 Estim Creat Clear Calc 46.5 Estimated GFR > 60 Random Glucose 161 H Lactic Acid 1.6 Calcium 9.8 D Urine Color Red A Urine Appearance Cloudy Urine pH 8.5 Ur Specific [place] 1.010 Urine Protein 300 (3+) H Urine Glucose (UA) See Note Urine Ketones See Note Urine Blood Large (3+) H Urine Nitrite See Note Ur Leukocyte Esterase Large (3+) H Urine RBC >20 H Urine WBC >50 H Ur Squamous Epith Cells 0-2 Other Crystals Present Urine Bacteria 4+ Hyaline Casts 3-5 Imaging Radiologist's Impressions: Impressions Abdomen/Pelvis CT 07/08/24 10:24 IMPRESSION: 1. No evidence of nephrolithiasis or ureteral obstruction. 2. Multiple incidental findings as described above without change from the prior study. Electronically signed by: Nelson Hopson MD 07/08/2024 11:04 AM [facility] and Plan (1) Hematuria: Qualifiers: Hematuria type: gross Qualified Code(s): R31.0 - Gross hematuria Status: Acute (2) Complication, blocked Bhatia catheter: Qualifiers: Encounter type: initial encounter Qualified Code(s): T83.091A - Other mechanical complication of indwelling urethral catheter, initial encounter Status: Acute (3) Acute UTI: Status: Acute Plan Pt is an 84-year-old male with a PMH significant for?CAD w/hx of NSTEMI, COPD w/chronic hypoxemic respiratory failure on 2L home O2 at baseline, hx of DVT in 11/2023 on Eliquis, HFpEF, severe aortic stenosis s/p TAVR 01/04/2024, HTN, BPH, and hx of 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 Pt will be admitted to the hospital for treatment and further evaluation of hematuria requiring CBI. Hematuria Secondary to blocked chronic indwelling Bhatia catheter, on anticoagulation Pt receiving CBI Hold Eliquis Urology consult Follow CBC Acute UTI UA consistent with UTI No sepsis: Chronic leukocytosis secondary to steroid use, no fever or tachypnea Will treat with ceftriaxone, started 07/08/2024 Follow urine cultures Hx of DVT Pt reports occurred during hospital stay after TAVR in 11/2023 Hold Eliquis due to hematuria Not clear if pt requires life-long anticoagulation, check [facility] records HFpEF Does not appear to be in acute exacerbation, pt looks euvolemic Will continue home furosemide CAD Continue aspirin, isosorbide mononitrate HTN Continue amlodipine, atenolol Peripheral neuropathy Continue gabapentin GERD Continue PPI Full Code Attending:?Dr. Segura DVT Prophylaxis: Pneumatic compression due to hematuria Pt will require a hospitalization of at least 2 overnight for treatment and further evaluation of hematuria secondary to blocked Bhatia catheter and anticoagulation use. Pt will require continuous bladder irrigation, close monitoring of labs, and specialist consultation with Urology. Quality Stroke Does the patient have a stroke diagnosis?: No VTE Prior VTE?: No Approximate Date of Prior VTE: 12/23/23 VTE Risk Level:: Medical - moderate - high VTE Device Contraindication: N/A - Device Ordered VTE Drug Contraindication: Treatment Not Indicated
--- NOTE | 2024-07-08 11:57 | PC.NURSE ---
continues on CBI, output pale pink with no clot, patient tolerating well
--- NOTE | 2024-07-08 13:51 | PHA.MEDREC ---
Addendum entered by Ben Mccrary RPh 07/08/24 14:07: Med rec was reviewed by [facility]. Original Note: Pharmacy Consult ? Medication Reconciliation Pharmacy has completed the medication reconciliation. Spoke to patient and patient daughter Jerome at bedside to confirm med list. Daughter states patient no longer takes Fluticasone Fur. 200mcg-Umeclid 62.5 mcg-vilant 25 mcg, Mucinex 600 mg, Lidocaine patch, Montelukast 10 mg, Prednisone 10 mg, and Tamsulosin 0.4 mg. Daughter and patient confirmed Eliquis 5 mg, however last fill date was 02/05/24 for 30 days (confirmed with [facility] on fill date), Azithromycin 250 is Thursday, Thursday, and Thursday. Furosemide 20 mg, however last fill date was 04/01/24 for 30 days.
--- NOTE | 2024-07-08 16:17 | PC.NURSE ---
CBI stopped , urine output pale pink with no clots.
[2024-07-08] MEDS: 0.9 % Sodium Chloride Flush 3 ML SYRINGE IVFLUSH (16:36)
--- NOTE | 2024-07-08 19:45 | MHC.EDTECH ---
Assisted pt oob to bedside commode. Pt had very large hard bm. Pt cleaned and helped back in to bed. RN aware.
--- NOTE | 2024-07-08 19:58 | PC.NURSE ---
This RN assumed pt care @ 1900. Pt a&ox4, no signs of distress. Pt positioned in bed for comfort Plan of care ongoing.
[2024-07-09] MEDS: 0.9 % Sodium Chloride Flush 3 ML SYRINGE IVFLUSH ×4 (00:06→21:50)
[2024-07-09 06:27] VITALS: BP 120/66; PULSE 89; RESP 14; TEMP 36.5; O2SAT 96
[2024-07-09 06:38] LABS: Hematocrit 41.7 % (42.0-52.0); Hemoglobin 12.9 g/dl (14.0-18.0); Mean Corpuscular HGB Conc 30.9 g/dl (31.0-36.0); Mean Corpuscular Hemoglobin 27.4 pg (27.0-33.0); Mean Corpuscular Volume 88.5 fL (80.0-98.0); Mean Platelet Volume 9.2 fL (9.4-12.4); Platelet Count 387 X10*3/uL (160-400); Red Blood Count 4.71 X10*6/uL (4.60-5.80); Red Cell Distribution Width 13.7 % (11.0-16.0)
[2024-07-09 06:52] LABS: Anion Gap 14 (12-20); Blood Urea Nitrogen 17 mg/dL (9-16); Calcium 9.4 mg/dL (8.4-10.2); Carbon Dioxide 28 mmol/L (22-29); Chloride 106 mmol/L (96-108); Creatinine Clr Calc Pharmacy 54.3; Estimated Glomerular Filt Rate > 60; Glucose Random 106 mg/dL (60-115); Potassium 3.5 mmol/L (3.3-5.1); Sodium 144 mmol/L (135-145)
[2024-07-09] MEDS: cefTRIAXone sodium 1 GM VIAL IVPUSH (07:55)
[2024-07-09 07:59] VITALS: BP 132/64; PULSE 100
[2024-07-09] MEDS: Gabapentin 100 MG CAPSULE 200 MG PO ×3 (07:59→21:47)
[2024-07-09] MEDS: atenoloL 25 MG TABLET PO (07:59)
[2024-07-09] MEDS: Furosemide 20 MG TABLET PO (07:59)
--- NOTE | 2024-07-09 09:48 | HO.PM.IMPN ---
Subjective Subjective Date of Service: 07/09/24 Interval History: Improved hematuria, still short of breath Physical Exam Vital Signs: Vital Signs: Last Vital Signs Temp 97.7 F 07/09/24 06:27 Pulse 100 07/09/24 07:59 Resp 14 07/09/24 06:27 BP 132/64 07/09/24 07:59 Pulse Ox 96 07/09/24 06:27 O2 Del Method Nasal Cannula 07/09/24 06:27 O2 Flow Rate 2 07/09/24 06:27 BMI result Body Mass Index 29.2 General: AO X 3, mild respiratory distress Resp: Rhonchi bilateral, mild accessory muscles used CVS: S1,S2,RRR GI: soft, non tender, non distended Neuro: motor grossly intact, alert Psych: appropriate affect, appropriate insight Bhatia without hematuria Objective Data Active Medications Acetaminophen (Acetaminophen 325 Mg Tablet) 650 mg PO Q6H PRN PRN Reason: Pain, Mild 1-3,fever,headache Atenolol (Atenolol 25 Mg Tablet) 25 mg PO DAILY [facility]; Protocol Last Admin: 07/09/24 07:59 Dose: 25 mg Documented By: THELMA Azithromycin (Azithromycin 250 Mg Tablet) 250 mg PO MoWeFr@0900 [facility] Calcium Carbonate (Calcium Carbonate 750 Mg Tab.Chew) 750 mg PO Q4H PRN PRN Reason: Heartburn Ceftriaxone Sodium (Ceftriaxone Sodium 1 Gm Vial) 1 gm IVPUSH Q24H [facility] Last Admin: 07/09/24 07:55 Dose: 1 gm Documented By: THELMA Furosemide (Furosemide 20 Mg Tablet) 20 mg PO DAILY [facility]; Protocol Last Admin: 07/09/24 07:59 Dose: 20 mg Documented By: THELMA Gabapentin (Gabapentin 100 Mg Capsule) 200 mg PO TID [facility] Last Admin: 07/09/24 07:59 Dose: 200 mg Documented By: THELMA Magnesium Hydroxide (Milk Of Magnesia 30 Ml Oral.Susp) 30 ml PO DAILY PRN PRN Reason: Constipation Melatonin (Melatonin 3 Mg Tablet) 6 mg PO BEDTIME PRN PRN Reason: Insomnia Sodium Chloride (0.9 % Sodium Chloride Flush 3 Ml Syringe) 3 ml IVFLUSH QSHIFT [facility] Last Admin: 07/09/24 07:56 Dose: 3 ml Documented By: THELMA Labs 07/09/24 06:11 07/09/24 06:11 Labs: Laboratory Results - last 24 hr 07/08/24 07/08/24 07/08/24 09:31 09:32 12:39 MCV MCH MCHC RDW Plt Count MPV Immature Gran % (Auto) 0.4 Neut % (Auto) 85.5 H Lymph % (Auto) 3.0 L [place] % (Auto) 10.4 Eos % (Auto) 0.1 Baso % (Auto) 0.6 Lymph # (Auto) 0.5 L [place] # (Auto) 1.7 H Eos # (Auto) 0.0 Baso # (Auto) 0.1 Abs Immat Gran (auto) 0.06 H Absolute Neuts (auto) 14.2 H Absolute Nucleated RBC 0.000 Nucleated RBC % (auto) 0.0 Smear Tech's Comments VERIFIED Anion Gap 15 Estim Creat Clear Calc 46.5 Estimated GFR > 60 Random Glucose 161 H Lactic Acid 1.6 Calcium 9.8 D Blood Type B Positive Antibody Screen NEGATIVE 07/09/24 06:11 MCV 88.5 MCH 27.4 MCHC 30.9 L RDW 13.7 Plt Count 387 MPV 9.2 L Immature Gran % (Auto) Neut % (Auto) Lymph % (Auto) [place] % (Auto) Eos % (Auto) Baso % (Auto) Lymph # (Auto) [place] # (Auto) Eos # (Auto) Baso # (Auto) Abs Immat Gran (auto) Absolute Neuts (auto) Absolute Nucleated RBC 0.000 Nucleated RBC % (auto) 0.0 Smear Tech's Comments Anion Gap 14 Estim Creat Clear Calc 54.3 Estimated GFR > 60 Random Glucose 106 Lactic Acid Calcium 9.4 Blood Type Antibody Screen 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 presented with hematuria Hematuria Hold Eliquis, status post CBI now clear Follow up Urology, monitor CBC Acute UTI Continue ceftriaxone follow up cultures History of DVT 12/12/2023 Likely provoked due to hospital stay Holding Eliquis Chronic diastolic CHF Continue Lasix maintenance Coronary artery disease Hold aspirin Hypertension Amlodipine, atenolol Chronic hypoxic respiratory failure due to COPD Continue inhalers as needed Check chest x-ray DVT prophylaxis-mechanical due to hematuria Full Code reason for continued hospitalization: Awaiting cultures Quality Stroke Does the patient have a stroke diagnosis?: No VTE Prior VTE?: No Approximate Date of Prior VTE: 12/23/23 VTE Risk Level:: Medical - moderate - high VTE Device Contraindication: N/A - Device Ordered VTE Drug Contraindication: Treatment Not Indicated
--- NOTE | 2024-07-09 10:05 | PC.NURSE ---
patient previously up with 2 assist to commode for bowel movement. king remains in place, no CBI at this time, urine appears yellow in color. placed into hospital bed for comfort, call fernando within reach
[2024-07-09 12:08] VITALS: BP 136/72; PULSE 79; RESP 22; TEMP 37; O2SAT 98
--- NOTE | 2024-07-09 12:08 | MHC.CM.PN ---
Addendum entered by Raquel Rutherford 07/09/24 12:13: DAUGHTER RAQUEL WEEMS # [phone] Original Note: [facility] DELIVERED PT LIVES WITH SPOUSE AND USES [facility] FOR MOBILITY. PT IS ACTIVE WITH [facility] FOR [facility]ER[facility] PEST CONTROL REPRESENTATIVE ASSIST AND [facility] FOR NURSING. +HCP ON FILE. PCP DR. ARIA CAMERON IN [place]: HOME WITH RESUMPTION OF SERVICES IS THE GOAL. DAUGHTER WILL TRANSPORT HOME. CM WILL CONTINUE TO FOLLOW FOR ANY CHANGE TO DC PLAN/NEEDS.
[2024-07-09 15:09] VITALS: BP 144/63; PULSE 85; RESP 17; TEMP 36.8; O2SAT 98
--- NOTE | 2024-07-09 18:33 | PC.NURSE ---
CBI started at 18:30, [address] Way F/C draining.
--- NOTE | 2024-07-09 19:18 | PC.NURSE ---
Pt arrived from ED with 3way catheter in from ED. Shorly after arrival pt c/o bladder spasms and pain. Bhatia wasn't draining well, irrigation of catheter did not relieve situation. Bladder scan unavailable, alerted. MD came to bedside and opted to resume the CBI. Process began at 1830, pt tolerated well.
[2024-07-09 19:32] VITALS: BP 149/65; PULSE 88; RESP 19; TEMP 36.2; O2SAT 94
--- NOTE | 2024-07-10 01:26 | PC.NURSE ---
after 2nd CBI bag patients urine is clear pale yellow with no clot & no red tinge. patient is not c/o of pain at this time. Dr. Braga notified and okayed to stop CBI.
[2024-07-10 03:30] VITALS: BP 130/86; PULSE 56; RESP 17; TEMP 36.5; O2SAT 98
[2024-07-10 06:32] LABS: Hematocrit 43.1 % (42.0-52.0); Hemoglobin 13.5 g/dl (14.0-18.0); Mean Corpuscular HGB Conc 31.3 g/dl (31.0-36.0); Mean Corpuscular Hemoglobin 28.1 pg (27.0-33.0); Mean Corpuscular Volume 89.8 fL (80.0-98.0); Mean Platelet Volume 9.4 fL (9.4-12.4); Platelet Count 402 X10*3/uL (160-400); Red Cell Distribution Width 13.8 % (11.0-16.0); White Blood Count 12.5 X10*3/uL (4.8-10.8)
[2024-07-10 06:53] LABS: Anion Gap 15 (12-20); Blood Urea Nitrogen 19 mg/dL (9-16); Calcium 9.3 mg/dL (8.4-10.2); Carbon Dioxide 28 mmol/L (22-29); Chloride 103 mmol/L (96-108); Creatinine Clr Calc Pharmacy 62.1; Estimated Glomerular Filt Rate > 60; Glucose Random 114 mg/dL (60-115); Potassium 3.5 mmol/L (3.3-5.1); Sodium 142 mmol/L (135-145)
[2024-07-10 07:02] VITALS: BP 141/62; PULSE 93; RESP 17; TEMP 36.5; O2SAT 96
[2024-07-10] MEDS: Furosemide 20 MG TABLET PO (08:16)
[2024-07-10] MEDS: Gabapentin 100 MG CAPSULE 200 MG PO ×3 (08:17→21:47)
[2024-07-10] MEDS: cefTRIAXone sodium 1 GM VIAL IVPUSH (08:17)
[2024-07-10] MEDS: atenoloL 25 MG TABLET PO (08:17)
[2024-07-10] MEDS: 0.9 % Sodium Chloride Flush 3 ML SYRINGE IVFLUSH ×3 (08:18→23:32)
--- NOTE | 2024-07-10 10:08 | HO.PM.IMPN ---
Subjective Subjective Date of Service: 07/10/24 Interval History: urinary retnetion yesterday needing cbi Physical Exam Vital Signs: Vital Signs: Last Vital Signs Temp 97.7 F 07/10/24 07:02 Pulse 93 07/10/24 07:02 Resp 17 07/10/24 07:02 BP 141/62 H 07/10/24 07:02 Pulse Ox 96 07/10/24 07:02 O2 Del Method Nasal Cannula 07/10/24 07:02 O2 Flow Rate 2 07/10/24 07:02 BMI result Body Mass Index 29.2 General: AO X 3, mild respiratory distress Resp: Rhonchi bilateral, mild accessory muscles used CVS: S1,S2,RRR GI: soft, non tender, non distended Neuro: motor grossly intact, alert Psych: appropriate affect, appropriate insight cbi without hematuria Objective Data Active Medications Acetaminophen (Acetaminophen 325 Mg Tablet) 650 mg PO Q6H PRN PRN Reason: Pain, Mild 1-3,fever,headache Atenolol (Atenolol 25 Mg Tablet) 25 mg PO DAILY [facility]; Protocol Last Admin: 07/10/24 08:17 Dose: 25 mg Documented By: CEZAR Azithromycin (Azithromycin 250 Mg Tablet) 250 mg PO MoWeFr@0900 [facility] Calcium Carbonate (Calcium Carbonate 750 Mg Tab.Chew) 750 mg PO Q4H PRN PRN Reason: Heartburn Ceftriaxone Sodium (Ceftriaxone Sodium 1 Gm Vial) 1 gm IVPUSH Q24H [facility] Last Admin: 07/10/24 08:17 Dose: 1 gm Documented By: CEZAR Furosemide (Furosemide 20 Mg Tablet) 20 mg PO DAILY [facility]; Protocol Last Admin: 07/10/24 08:16 Dose: 20 mg Documented By: CEZAR Gabapentin (Gabapentin 100 Mg Capsule) 200 mg PO TID [facility] Last Admin: 07/10/24 08:17 Dose: 200 mg Documented By: CEZAR Magnesium Hydroxide (Milk Of Magnesia 30 Ml Oral.Susp) 30 ml PO DAILY PRN PRN Reason: Constipation Melatonin (Melatonin 3 Mg Tablet) 6 mg PO BEDTIME PRN PRN Reason: Insomnia Sodium Chloride (0.9 % Sodium Chloride Flush 3 Ml Syringe) 3 ml IVFLUSH QSHIFT [facility] Last Admin: 07/10/24 08:18 Dose: 3 ml Documented By: CEZAR Labs 07/10/24 05:59 07/10/24 05:59 Labs: Laboratory Results - last 24 hr 07/10/24 07/10/24 07/10/24 05:59 05:59 05:59 MCV Cancelled 89.8 MCH Cancelled 28.1 MCHC Cancelled RDW Plt Count MPV Absolute Nucleated RBC Nucleated RBC % (auto) Anion Gap Estim Creat Clear Calc Estimated GFR Random Glucose Calcium 07/10/24 07/10/24 07/10/24 05:59 05:59 05:59 MCV MCH MCHC 31.3 RDW Cancelled 13.8 Plt Count Cancelled 402 H MPV Cancelled Absolute Nucleated RBC Nucleated RBC % (auto) Anion Gap Estim Creat Clear Calc Estimated GFR Random Glucose Calcium 07/10/24 07/10/24 07/10/24 05:59 05:59 05:59 MCV MCH MCHC RDW Plt Count MPV 9.4 Absolute Nucleated RBC Cancelled 0.000 Nucleated RBC % (auto) Cancelled 0.0 Anion Gap 15 Estim Creat Clear Calc 62.1 Estimated GFR > 60 Random Glucose 114 Calcium 9.3 Microbiology Microbiology Results: Microbiology 07/08/24 Unknown Urine Culture - Final Urine Catheterized - Bhatia Catheter 07/08/24 09:38 Blood Culture - Preliminary Blood - Venous No growth after 24 hours. 07/08/24 09:31 Blood Culture - Preliminary Blood - Venous No growth after 24 hours. 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 presented with hematuria Hematuria Holding Eliquis, asa now back on cbi Follow up Urology, monitor CBC Acute UTI Continue ceftriaxone follow up cultures History of DVT 12/12/2023 Likely provoked due to hospital stay Holding Eliquis Chronic diastolic CHF Continue Lasix maintenance Coronary artery disease Hold aspirin Hypertension Amlodipine, atenolol Chronic hypoxic respiratory failure due to COPD Continue inhalers as needed Check chest x-ray DVT prophylaxis-mechanical due to hematuria Full Code reason for continued hospitalization: cbi Quality Stroke Does the patient have a stroke diagnosis?: No VTE Prior VTE?: No Approximate Date of Prior VTE: 12/23/23 VTE Risk Level:: Medical - moderate - high VTE Device Contraindication: N/A - Device Ordered VTE Drug Contraindication: Treatment Not Indicated
[2024-07-10] MEDS: Acetaminophen 325 MG TABLET 650 MG PO ×2 (13:05→22:03)
[2024-07-10 15:32] VITALS: BP 133/60; PULSE 78; RESP 16; TEMP 36.3; O2SAT 94
--- NOTE | 2024-07-10 17:23 | PM.UROCN ---
History of Present Illness Consult details Consult date: 07/09/24 Narrative: CC: Hematuria He 4-year-old male Medical history significant for CAD, COPD, hypoxic respiratory failure on 2 L home O2. Placed on Eliquis for DVT 12/15 high-dose therapy, restricted ejection fraction, severe aortic stenosis with TAVR 01/15 Known BPH followed by outside Urology Presented to emergency room with suprapubic pain and Bhatia blockage. Found to have UTI on dipstick. Urine culture mixed bacteria. Had presented to [facility] about a month ago with catheter in place and pain. Catheter been changed. Had appointment to follow-up with Urology for voiding trial and catheter removal. Catheter changed in emergency room. Hematuria noted. Switch to CBI. At this stage hematuria appears to be resolving. CBI clamped Bhatia catheter can remain and he can follow-up as planned with outside urology. BPH medications are not listed on current home medications and should be considered. Review of Systems Constitutional: Constitutional: Reports as per HPI and Reports no additional constitutional complaints Cardiovascular: Cardiovascular: Reports as per HPI and Reports no additional cardiovascular complaints Respiratory: Respiratory: Reports as per HPI and Reports no additional respiratory complaints Gastrointestinal: Gastrointestinal: Reports as per HPI and Reports no additional gastrointestinal complaints Genitourinary: Genitourinary: Reports as per HPI Musculoskeletal: Musculoskeletal: Reports no additional musculoskeletal complaints and Reports as per HPI Neurologic: Reports system reviewed and no additional complaints, except as documented and Reports as per HPI [facility] Past Medical History Medical History Presence of prosthetic heart valve Aortic stenosis Bacteriuria Congestive heart disease Chronic lung disease Chronic respiratory failure Pre-op chest exam Inferior TN Pneumonitis Pulmonary nodules BPH (benign prostatic hyperplasia) COPD (chronic obstructive pulmonary disease) Pneumonia HTN (hypertension) Family History Family History Mother CAD (coronary artery disease) Heart attack Father HTN (hypertension) Brother H/O heart bypass surgery Sister Afib Surgical History Surgical History S/P cardiac catheterization History of carpal tunnel surgery of right wrist Hx of cardiac cath Social History Social History Household Members: Spouse and Family Housing: House Do you presently have visiting nurse or other home services: Yes (1x week) Alcohol intake: former Patient Tobacco Use Status: Former Tobacco user Tobacco use type: Cigarette e-Cigarette/Vaping Use: Never Used Second Hand Smoke Exposure: Yes (family smokes in the house) Advance Directives Date on File: 08/18/23 service: No Current occupational status: retired Meds Allergies Allergy/AdvReac Type Severity Reaction Status Date / Time ibuprofen Allergy Mild Gastrointestinal Verified 07/08/24 07:35 Upset Active Medications: Current Medications Acetaminophen (Acetaminophen 325 Mg Tablet) 650 mg PO Q6H PRN PRN Reason: Pain, Mild 1-3,fever,headache Last Admin: 07/10/24 13:05 Dose: 650 mg Atenolol (Atenolol 25 Mg Tablet) 25 mg PO DAILY [facility]; Protocol Last Admin: 07/10/24 08:17 Dose: 25 mg Azithromycin (Azithromycin 250 Mg Tablet) 250 mg PO MoWeFr@0900 [facility] Calcium Carbonate (Calcium Carbonate 750 Mg Tab.Chew) 750 mg PO Q4H PRN PRN Reason: Heartburn Ceftriaxone Sodium (Ceftriaxone Sodium 1 Gm Vial) 1 gm IVPUSH Q24H [facility] Last Admin: 07/10/24 08:17 Dose: 1 gm Furosemide (Furosemide 20 Mg Tablet) 20 mg PO DAILY [facility]; Protocol Last Admin: 07/10/24 08:16 Dose: 20 mg Gabapentin (Gabapentin 100 Mg Capsule) 200 mg PO TID [facility] Last Admin: 07/10/24 15:41 Dose: 200 mg Magnesium Hydroxide (Milk Of Magnesia 30 Ml Oral.Susp) 30 ml PO DAILY PRN PRN Reason: Constipation Melatonin (Melatonin 3 Mg Tablet) 6 mg PO BEDTIME PRN PRN Reason: Insomnia Sodium Chloride (0.9 % Sodium Chloride Flush 3 Ml Syringe) 3 ml IVFLUSH QSHIFT [facility] Last Admin: 07/10/24 15:42 Dose: 3 ml Home Medications ?Medication ?Instructions ?Recorded ?Confirmed ?Last Taken ?Type atenolol 25 mg tablet 25 mg PO DAILY 06/19/20 07/08/24 07/07/24 History aspirin 81 mg tablet,delayed 81 mg PO DAILY 11/19/20 07/08/24 07/07/24 History release pantoprazole 20 mg tablet,delayed 20 mg PO DAILY@0630 11/19/20 07/08/24 07/07/24 History release (Protonix) fluticasone propionate 50 1 spray intranasal DAILY Congestion 02/12/21 07/08/24 07/07/24 History mcg/actuation nasal spray,suspension oxycodone-acetaminophen 5 mg-325 1 tab PO QID PRN Pain (Scale Score 02/12/21 07/08/24 07/07/24 History mg tablet 1-3) nebulizers 10/15/22 02/23/24 Unknown History Oxygen Home Use 01/08/23 02/23/24 Unknown History gabapentin 100 mg capsule 200 mg PO TID 04/10/23 07/08/24 07/07/24 History albuterol sulfate 2.5 mg/3 mL 2.5 mg inhalation Q6H PRN for 08/17/23 07/08/24 12/17/23 History (0.083 %) solution for nebulization dyspnea albuterol sulfate 90 mcg/actuation 2 puff inhalation QID PRN SOB 12/18/23 07/08/24 12/17/23 History aerosol inhaler furosemide 20 mg tablet 20 mg PO DAILY 02/16/24 07/08/24 07/07/24 History apixaban 5 mg tablet (Eliquis) 5 mg PO BID 02/23/24 07/08/24 07/07/24 History acetaminophen 325 mg tablet 650 mg PO Q6H PRN Fever Or Pain 04/03/24 07/08/24 Unknown History amlodipine 10 mg tablet 10 mg PO DAILY 04/03/24 07/08/24 07/07/24 History azithromycin 250 mg tablet 250 mg PO MOWEFR 07/08/24 07/08/24 07/06/24 History Physical Exam Vital Signs: Vital Signs: Last Vital Signs Temp 97.3 F 07/10/24 15:32 Pulse 78 07/10/24 15:32 Resp 16 07/10/24 15:32 BP 133/60 07/10/24 15:32 Pulse Ox 94 07/10/24 15:32 O2 Del Method Nasal Cannula 07/10/24 15:32 O2 Flow Rate 2 07/10/24 15:32 BMI result Body Mass Index 29.2 Const: General: cooperative, healthy appearing, comfortable and no acute distress Orientation/consciousness: patient oriented x3 HEENT: Face and sinus: Yes normal facial exam Mouth: moist mucous membranes Neck: Neck: Yes normal visual inspection, Yes full ROM and Yes trachea midline Chest: Chest palpation & inspection: normal inspection of the chest Resp: Effort & Inspection: normal respiratory effort, able to speak in complete sentences and no respiratory distress GI: Inspection: Yes normal to inspection Back/Spine/Pelvis: Cervical Spine: normal cervical lordosis Thoracic/Lumbar Spine: thoracic and lumbar spine normal to inspection Skin: General skin exam: no rashes or lesions noted Neuro: General: patient oriented x3, tone normal and moves all extremities Extrem: General: Yes normal to inspection and Yes capillary refill normal Results Labs 07/10/24 05:59 07/10/24 05:59 Labs: Abnormal lab results 07/10/24 Range/Units 05:59 WBC 12.5 H (4.8-10.8) X10*3/uL Hgb 13.5 L (14.0-18.0) g/dl Plt Count 402 H (160-400) X10*3/uL BUN 19 H (9-16) mg/dL Short CBC 07/10/24 07/10/24 07/10/24 Range/Units 05:59 05:59 05:59 WBC Cancelled 12.5 H Hgb Cancelled 13.5 L Hct Cancelled Plt Count 07/10/24 07/10/24 Range/Units 05:59 05:59 WBC Hgb Hct 43.1 Plt Count Cancelled 402 H BMP 07/10/24 05:59 Sodium 142 Potassium 3.5 Chloride 103 Carbon Dioxide 28 BUN 19 H Creatinine 0.83 Calcium 9.3 Urine 07/08/24 Range/Units 08:18 Urine Color Red A Urine Appearance Cloudy Urine pH 8.5 (5.0-9.0) Ur Specific [place] 1.010 (1.005-1.025) Urine Protein 300 (3+) H (Neg-Trace) mg/dL Urine Glucose (UA) See Note (Negative) mg/dL All other labs normal. Assessment and Plan (1) UTI (urinary tract infection): Qualifiers: Urinary tract infection type: acute cystitis Hematuria presence: without hematuria Qualified Code(s): N30.00 - Acute cystitis without hematuria Status: Acute (2) Hematuria: Qualifiers: Hematuria type: gross Qualified Code(s): R31.0 - Gross hematuria Status: Acute Plan Hold CBI Will DC with Bhatia catheter Has external urology Procedures Date of Service Date of Service: 07/10/24
[2024-07-10 18:58] VITALS: BP 143/64; PULSE 84; RESP 19; TEMP 36.2; O2SAT 95
[2024-07-11] MEDS: traMADoL HCL 50 MG TABLET 25 MG PO ×2 (00:09→06:02)
[2024-07-11 03:04] VITALS: BP 147/71; PULSE 77; RESP 18; TEMP 36.1; O2SAT 95
[2024-07-11 06:23] LABS: Hematocrit 41.3 % (42.0-52.0); Mean Corpuscular HGB Conc 31.5 g/dl (31.0-36.0); Mean Corpuscular Hemoglobin 27.9 pg (27.0-33.0); Mean Corpuscular Volume 88.6 fL (80.0-98.0); Mean Platelet Volume 9.7 fL (9.4-12.4); Platelet Count 431 X10*3/uL (160-400); Red Blood Count 4.66 X10*6/uL (4.60-5.80); Red Cell Distribution Width 13.8 % (11.0-16.0); White Blood Count 14.1 X10*3/uL (4.8-10.8)
[2024-07-11 06:31] LABS: Anion Gap 14 (12-20); Blood Urea Nitrogen 18 mg/dL (9-16); Calcium 9.3 mg/dL (8.4-10.2); Carbon Dioxide 28 mmol/L (22-29); Chloride 102 mmol/L (96-108); Creatinine Clr Calc Pharmacy 62.1; Estimated Glomerular Filt Rate > 60; Glucose Random 120 mg/dL (60-115); Potassium 3.5 mmol/L (3.3-5.1); Sodium 140 mmol/L (135-145)
[2024-07-11 06:52] VITALS: BP 146/90; PULSE 83; RESP 17; TEMP 36; O2SAT 94
[2024-07-11] MEDS: 0.9 % Sodium Chloride Flush 3 ML SYRINGE IVFLUSH ×2 (08:56→15:57)
[2024-07-11] MEDS: cefTRIAXone sodium 1 GM VIAL IVPUSH (08:56)
[2024-07-11] MEDS: atenoloL 25 MG TABLET PO (08:56)
[2024-07-11] MEDS: Azithromycin 250 MG TABLET PO (08:56)
[2024-07-11] MEDS: Gabapentin 100 MG CAPSULE 200 MG PO ×3 (08:56→20:11)
[2024-07-11] MEDS: Furosemide 20 MG TABLET PO (08:56)
--- NOTE | 2024-07-11 09:17 | P.DS_ITS ---
DS: Providers Provider Date of Service: 07/12/24 Date of admission: 07/08/24 12:39 Date of discharge: 07/12/24 Primary care physician: Marivel Miller MD Consults: 07/08/24 12:44 Consult to Urology Routine Consulting Provider: [facility] Urology Services Reason for consultation: Hematuria on CBI, chronic Bhatia DS: Diagnosis Discharge Diagnosis (1) UTI (urinary tract infection): Status: Acute (2) Hematuria: Status: Acute DS: Summary Hospital Course Hospital Course: From initial hpi: 84-year-old male with a PMH significant for CAD w/hx of NSTEMI, COPD w/chronic hypoxemic respiratory failure on 2L home O2 at baseline, hx of DVT in 11/2023 on Eliquis, HFpEF, severe aortic stenosis s/p TAVR 01/04/2024, HTN, BPH, and hx of 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 Pt with longstanding hx of urinary retention and has had chronic indwelling catheter. Pt reports presented [place] [facility] [place] a month ago to have his catheter changed. Was discharged to [facility] where he stayed for a few weeks and was discharged back home approximately 2 weeks ago. While at rehab pt had his Bhatia catheter changed 3 weeks ago. Reports yesterday began experiencing suprapubic pain and has not had any drainage in Bhatia since then. Notes has occasionally seen blood in his Bhatia bag, but would clear up on its own after only a short period time. Last noticed hematuria 2 days ago. In the ED pt had catheter replaced which was noted to include a great deal of sediment and hematuria. Pt was placed on CBI in the ED. pt himself denies any other acute medical complaints. No fever or chills. Denies shortness or breath, difficulty breathing, or cough above baseline. No nausea or vomiting. Denies diarrhea. In the ED pt was tachycardic up to 117, vitals otherwise stable and WNL. Labs overall grossly unremarkable and around baseline for pt. Chronically elevated leukocytosis of 16.6 around baseline. Stable normocytic anemia. No significant electrolyte abnormalities. Renal function around baseline. UA consistent with UTI. CT of abdomen/pelvis negative for nephrolithiasis or ureteral obstruction. Pt was placed on CBI and treated with ceftriaxone. Pt will be admitted to the hospital for treatment and further evaluation of hematuria requiring CBI Hospital course: Patient was admitted for urinary retention due to hematuria clotting chronic Bhatia. Was put on CBI and Eliquis and aspirin were held. Also treated with ceftriaxone for acute UTI. Cultures were negative. Completed treatment. Urine cleared CBI was discontinued. Was seen by Urology recommended maintaining chronic Bhatia catheter and following up outpatient. We will also be started on medications before BPH. For history of DVT in 01/12/2024 was likely due to hospitalization for TAVR and was also noted to be distal, therefore risks of further anticoagulation appear to outweigh benefits. Eliquis has been discontinued. For chronic diastolic CHF was continued on Lasix maintenance. For coronary disease aspirin was initially held will be restarted on discharge. For hypertension was continued on amlodipine and atenolol. For chronic hypoxic respiratory failure due to COPD remained stable. Patient is feeling better will be discharged home. Time Attestation Discharge Coordination Time (in mins): 33 Quality: Safe Use of Opioids Does Pt have an Active Cancer Diagnosis on the Problem List?: No Quality: Stroke Does the patient have a stroke diagnosis?: No Physical Exam Vital Signs: Vital Signs: Last Vital Signs Temp 96.8 F 07/11/24 06:52 Pulse 83 07/11/24 06:52 Resp 17 07/11/24 06:52 BP 146/90 H 07/11/24 06:52 Pulse Ox 94 07/11/24 06:52 O2 Del Method Nasal Cannula 07/11/24 06:52 O2 Flow Rate 2 07/11/24 06:52 BMI result Body Mass Index 29.2 Const: General: cooperative, healthy appearing, comfortable and no acute distress Orientation/consciousness: patient oriented x3 HEENT: Face and sinus: Yes normal facial exam Mouth: moist mucous membranes Neck: Neck: Yes normal visual inspection, Yes full ROM and Yes trachea midline Chest: Chest palpation & inspection: normal inspection of the chest Resp: Effort & Inspection: normal respiratory effort, able to speak in complete sentences and no respiratory distress GI: Inspection: Yes normal to inspection Back/Spine/Pelvis: Cervical Spine: normal cervical lordosis Thoracic/Lumbar Spine: thoracic and lumbar spine normal to inspection Skin: General skin exam: no rashes or lesions noted Neuro: General: patient oriented x3, tone normal and moves all extremities Extrem: General: Yes normal to inspection and Yes capillary refill normal DS: Data Data Completed and Pending Labs on day of discharge: Laboratory Results - last 24 hr 07/11/24 05:38 WBC 14.1 H RBC 4.66 Hgb 13.0 L Hct 41.3 L MCV 88.6 MCH 27.9 MCHC 31.5 RDW 13.8 Plt Count 431 H MPV 9.7 Absolute Nucleated RBC 0.000 Nucleated RBC % (auto) 0.0 Sodium 140 Potassium 3.5 Chloride 102 Carbon Dioxide 28 Anion Gap 14 BUN 18 H Creatinine 0.83 Estim Creat Clear Calc 62.1 Estimated GFR > 60 Random Glucose 120 H Calcium 9.3 Preliminary micro results at discharge 07/08/24 09:38 Blood Culture - Preliminary Blood - Venous No growth after 48 hours. 07/08/24 09:31 Blood Culture - Preliminary Blood - Venous No growth after 48 hours. Discharge Plan Discharge Anticipated Discharge Date/Time: 07/11/24 09:09 Patient Disposition: Home Health Service Discharge Diagnosis: hematuria, uti Referrals: katarina coleman [Other] - 1 Week Marivel Mliler MD [Primary Care Provider] - 1 Week Discharge Medications: New tamsulosin [Flomax] 0.4 mg capsule 0.4 mg PO BEDTIME Qty: 90 0RF finasteride [Proscar] 5 mg tablet 5 mg PO DAILY Qty: 90 0RF Continued isosorbide mononitrate 60 mg tablet extended release 24 hr 60 mg PO DAILY Qty: 90 3RF atenolol 25 mg Tablet 25 mg PO DAILY albuterol sulfate 2.5 mg /3 mL (0.083 %) solution for nebulization 2.5 mg inhalation Q6H PRN (Reason: for dyspnea) amlodipine 10 mg tablet 10 mg PO DAILY acetaminophen 325 mg tablet 650 mg PO Q6H PRN (Reason: Fever Or Pain) azithromycin 250 mg tablet 250 mg PO MOWE Rx Instructions: Take 1 tablet on Thursday/Thursday/Thursday albuterol sulfate 90 mcg/actuation HFA aerosol inhaler 2 puff inhalation QID PRN (Reason: SOB) aspirin 81 mg tablet,delayed release (DR/EC) 81 mg PO DAILY pantoprazole [Protonix] 20 mg tablet,delayed release (DR/EC) 20 mg PO DAILY@0630 gabapentin 100 mg capsule 200 mg PO TID oxycodone-acetaminophen 5-325 mg tablet 1 tab PO QID PRN (Reason: Pain (Scale Score 1-3)) fluticasone propionate 50 mcg/actuation spray,suspension 1 spray intranasal DAILY (DME) nebulizers Misc See Rx Instructions .Route Rx Instructions: As directed (DME) Oxygen Home Use Kit See Rx Instructions .Route Rx Instructions: As directed furosemide 20 mg tablet 20 mg PO DAILY Discontinued Eliquis 5 mg tablet 5 mg PO BID Diet: Advance to usual diet Activity on Discharge: As tolerated Stand Alone Forms: Patient Portal Discharge page Print Language: [place] Care Plan Goals: Recovery Health Concerns: UTI and hematuria Plan of Treatment: Stop apixaban as DVT appears to have been distal, and likely provoked from TAVR and completed greater than 6 months treatment Okay to restart aspirin, monitor for further bleeding, acute Bhatia for now and follow up with Urology Assessment: See above
--- NOTE | 2024-07-11 10:18 | W.MHC.F2F ---
Service Date Service Date: 07/11/24 Encounter Date of encounter: 07/11/24 Reasons for Services Signs and symptoms assessed: lue paralysis Reason for penitentiary: medication management, medication treatment, teach disease management and GI/ assessment Reason for physical therapy: home safety and mobility, therapeutic exercises and restore joint function Homebound: Leaving the home is medically contraindicated at this time without the asist of a device and/or another person due th the listed conditions above and below. Reason homebound: unsteady gait / fall risk Certification: Based on the above findings, I certify that this patient is confined to the home and needs intermittent penitentiary care, physical therapy and/or speech therapy, or continues to need occupational therapy. The patient is under my care, and I have initiated the establishment of the plan of care. The patient will be followed by a physician who will periodically review the plan of care. Time Spent With Patient Time: Total time managing care of this patient today ____ minutes.
--- NOTE | 2024-07-11 13:15 | P.PNIM_ITS ---
Subjective Subjective Date of Service: 07/11/24 Interval History: no hematuria Physical Exam 2 Vital Signs: Vital Signs: Last Vital Signs Temp 96.8 F 07/11/24 06:52 Pulse 83 07/11/24 06:52 Resp 17 07/11/24 06:52 BP 146/90 H 07/11/24 06:52 Pulse Ox 94 07/11/24 06:52 O2 Del Method Nasal Cannula 07/11/24 06:52 O2 Flow Rate 2 07/11/24 06:52 BMI result Body Mass Index 29.2 Const: General: cooperative, healthy appearing, comfortable and no acute distress Orientation/consciousness: patient oriented x3 HEENT: Face and sinus: Yes normal facial exam Mouth: moist mucous membranes Neck: Neck: Yes normal visual inspection, Yes full ROM and Yes trachea midline Chest: Chest palpation & inspection: normal inspection of the chest Resp: Effort & Inspection: normal respiratory effort, able to speak in complete sentences and no respiratory distress GI: Inspection: Yes normal to inspection Back/Spine/Pelvis: Cervical Spine: normal cervical lordosis Thoracic/Lumbar Spine: thoracic and lumbar spine normal to inspection Skin: General skin exam: no rashes or lesions noted Neuro: General: patient oriented x3, tone normal and moves all extremities Extrem: General: Yes normal to inspection and Yes capillary refill normal Objective Data Active Medications Acetaminophen (Acetaminophen 325 Mg Tablet) 650 mg PO Q6H PRN PRN Reason: Pain, Mild 1-3,fever,headache Last Admin: 07/10/24 22:03 Dose: 650 mg Documented By: CARLY Atenolol (Atenolol 25 Mg Tablet) 25 mg PO DAILY [facility]; Protocol Last Admin: 07/11/24 08:56 Dose: 25 mg Documented By: EVELIO Azithromycin (Azithromycin 250 Mg Tablet) 250 mg PO MoWeFr@0900 [facility] Last Admin: 07/11/24 08:56 Dose: 250 mg Documented By: EVELIO Calcium Carbonate (Calcium Carbonate 750 Mg Tab.Chew) 750 mg PO Q4H PRN PRN Reason: Heartburn Ceftriaxone Sodium (Ceftriaxone Sodium 1 Gm Vial) 1 gm IVPUSH Q24H [facility] Last Admin: 07/11/24 08:56 Dose: 1 gm Documented By: EVELIO Furosemide (Furosemide 20 Mg Tablet) 20 mg PO DAILY [facility]; Protocol Last Admin: 07/11/24 08:56 Dose: 20 mg Documented By: EVELIO Gabapentin (Gabapentin 100 Mg Capsule) 200 mg PO TID [facility] Last Admin: 07/11/24 08:56 Dose: 200 mg Documented By: EVELIO Magnesium Hydroxide (Milk Of Magnesia 30 Ml Oral.Susp) 30 ml PO DAILY PRN PRN Reason: Constipation Melatonin (Melatonin 3 Mg Tablet) 6 mg PO BEDTIME PRN PRN Reason: Insomnia Sodium Chloride (0.9 % Sodium Chloride Flush 3 Ml Syringe) 3 ml IVFLUSH QSHIFT [facility] Last Admin: 07/11/24 08:56 Dose: 3 ml Documented By: EVELIO Tramadol HCl (Tramadol Hcl 50 Mg Tablet) 25 mg PO Q6H PRN PRN Reason: Pain, Severe (Pain Scale 7-10) Last Admin: 07/11/24 06:02 Dose: 25 mg Documented By: CARLY Labs 07/11/24 05:38 07/11/24 05:38 Labs: Laboratory Results - last 24 hr 07/11/24 05:38 MCV 88.6 MCH 27.9 MCHC 31.5 RDW 13.8 Plt Count 431 H MPV 9.7 Absolute Nucleated RBC 0.000 Nucleated RBC % (auto) 0.0 Anion Gap 14 Estim Creat Clear Calc 62.1 Estimated GFR > 60 Random Glucose 120 H Calcium 9.3 Microbiology Microbiology Results: Microbiology 07/08/24 09:38 Blood Culture - Preliminary Blood - Venous No growth after 48 hours. 07/08/24 09:31 Blood Culture - Preliminary Blood - Venous No growth after 48 hours. 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 presented with hematuria Hematuria Holding Eliquis, asa now back on cbi Follow up Urology, monitor CBC Acute UTI Continue ceftriaxone follow up cultures History of DVT 12/12/2023 Likely provoked due to hospital stay Holding Eliquis Chronic diastolic CHF Continue Lasix maintenance Coronary artery disease Hold aspirin Hypertension Amlodipine, atenolol Chronic hypoxic respiratory failure due to COPD Continue inhalers as needed Check chest x-ray DVT prophylaxis-mechanical due to hematuria Full Code reason for continued hospitalization: debility, pt eval Quality Stroke Does the patient have a stroke diagnosis?: No VTE Prior VTE?: No Approximate Date of Prior VTE: 12/23/23 VTE Risk Level:: Medical - moderate - high VTE Device Contraindication: N/A - Device Ordered VTE Drug Contraindication: Treatment Not Indicated
[2024-07-11 15:15] VITALS: BP 144/67; PULSE 87; RESP 16; TEMP 37.2; O2SAT 96
[2024-07-11 18:55] VITALS: BP 140/64; PULSE 85; RESP 16; TEMP 38.1; O2SAT 91
[2024-07-11] MEDS: Acetaminophen 325 MG TABLET 650 MG PO (20:13)
[2024-07-12] VITALS (8 sets, daily range): BP systolic 124–174; BP diastolic 65–89; PULSE 62–98; RESP 16–31; TEMP 36.5–37.4; O2SAT 88–100
--- NOTE | 2024-07-12 | ECG_ITS ---
Test Reason : Dysnpnea Blood Pressure : */* mmHG Vent. Rate : 98 BPM Atrial Rate : 98 BPM P-R Int : 166 ms QRS Dur : 92 ms QT Int : 362 ms P-R-T Axes : 49 75 10 degrees QTcB Int : 462 ms Artifact in tracing Normal sinus rhythm Nonspecific ST and T wave abnormality Borderline ECG When compared with ECG of 03-Apr-2024 07:50, No significant changes seen Referred By: Katharina Austin Electronically Signed By: ELADIA HILL
--- NOTE | 2024-07-12 04:30 | PC.NURSE ---
Addendum entered by Luann Lozoya RN 07/12/24 06:37: Upon hourly rounding patient informed RN that the burning/discomfort to to penis and low abdomen returned, will report it to the incoming RN Original Note: Patient a&ox4, 2LNC, chronic king in place, patient c/o shoulder pain and requested Tylenl, VSS, patient slept most of the shift, did complain of burning/discomfort while urinating . King was check, draining yellow urine, tip of the penis and king cleaned, patient admitted feeling better, no symptoms reported. At 1999 vs check temp elevated at 100.6 - tylenol administered with good effect.
[2024-07-12] MEDS: cefTRIAXone sodium 1 GM VIAL IVPUSH (08:38)
[2024-07-12] MEDS: Gabapentin 100 MG CAPSULE 200 MG PO ×3 (08:38→20:25)
[2024-07-12] MEDS: atenoloL 25 MG TABLET PO (08:38)
[2024-07-12] MEDS: Furosemide 20 MG TABLET PO (08:38)
[2024-07-12] MEDS: 0.9 % Sodium Chloride Flush 3 ML SYRINGE IVFLUSH ×2 (08:38→16:52)
--- NOTE | 2024-07-12 08:41 | HO.PM.IMPN ---
Subjective Subjective Date of Service: 07/12/24 Interval History: no hematuria Physical Exam Vital Signs: Vital Signs: Last Vital Signs Temp 97.7 F 07/12/24 08:00 Pulse 77 07/12/24 08:28 Resp 16 07/12/24 08:00 BP 137/68 07/12/24 08:28 Pulse Ox 92 07/12/24 08:28 O2 Del Method Nasal Cannula 07/12/24 08:00 O2 Flow Rate 2.0 07/12/24 08:00 BMI result Body Mass Index 29.2 Const: General: cooperative, healthy appearing, comfortable and no acute distress Orientation/consciousness: patient oriented x3 HEENT: Face and sinus: Yes normal facial exam Mouth: moist mucous membranes Neck: Neck: Yes normal visual inspection, Yes full ROM and Yes trachea midline Chest: Chest palpation & inspection: normal inspection of the chest Resp: Effort & Inspection: normal respiratory effort, able to speak in complete sentences and no respiratory distress GI: Inspection: Yes normal to inspection Back/Spine/Pelvis: Cervical Spine: normal cervical lordosis Thoracic/Lumbar Spine: thoracic and lumbar spine normal to inspection Skin: General skin exam: no rashes or lesions noted Neuro: General: patient oriented x3, tone normal and moves all extremities Extrem: General: Yes normal to inspection and Yes capillary refill normal Objective Data Active Medications Acetaminophen (Acetaminophen 325 Mg Tablet) 650 mg PO Q6H PRN PRN Reason: Pain, Mild 1-3,fever,headache Last Admin: 07/11/24 20:13 Dose: 650 mg Documented By: NOEMY Atenolol (Atenolol 25 Mg Tablet) 25 mg PO DAILY [facility]; Protocol Last Admin: 07/11/24 08:56 Dose: 25 mg Documented By: EVELIO Azithromycin (Azithromycin 250 Mg Tablet) 250 mg PO MoWeFr@0900 [facility] Last Admin: 07/11/24 08:56 Dose: 250 mg Documented By: EVELIO Calcium Carbonate (Calcium Carbonate 750 Mg Tab.Chew) 750 mg PO Q4H PRN PRN Reason: Heartburn Ceftriaxone Sodium (Ceftriaxone Sodium 1 Gm Vial) 1 gm IVPUSH Q24H [facility] Last Admin: 07/11/24 08:56 Dose: 1 gm Documented By: EVELIO Furosemide (Furosemide 20 Mg Tablet) 20 mg PO DAILY [facility]; Protocol Last Admin: 07/11/24 08:56 Dose: 20 mg Documented By: EVELIO Gabapentin (Gabapentin 100 Mg Capsule) 200 mg PO TID [facility] Last Admin: 07/11/24 20:11 Dose: 200 mg Documented By: NOEMY Magnesium Hydroxide (Milk Of Magnesia 30 Ml Oral.Susp) 30 ml PO DAILY PRN PRN Reason: Constipation Melatonin (Melatonin 3 Mg Tablet) 6 mg PO BEDTIME PRN PRN Reason: Insomnia Sodium Chloride (0.9 % Sodium Chloride Flush 3 Ml Syringe) 3 ml IVFLUSH QSHIFT [facility] Last Admin: 07/12/24 01:38 Dose: Not Given Documented By: NOEMY Non-Admin Reason: Previously Administered Tramadol HCl (Tramadol Hcl 50 Mg Tablet) 25 mg PO Q6H PRN PRN Reason: Pain, Severe (Pain Scale 7-10) Last Admin: 07/11/24 06:02 Dose: 25 mg Documented By: CARLY Labs 07/11/24 05:38 07/11/24 05:38 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 presented with hematuria Hematuria Holding Eliquis, asa now off cbi gu appreciated dc with king Acute UTI Continue ceftriaxone culture mixed alesha History of DVT 12/12/2023 Likely provoked due to hospital stay Holding Eliquis Chronic diastolic CHF Continue Lasix maintenance Coronary artery disease Hold aspirin Hypertension Amlodipine, atenolol Chronic hypoxic respiratory failure due to COPD Continue inhalers as needed Check chest x-ray DVT prophylaxis-mechanical due to hematuria Full Code reason for continued hospitalization: debility, dispo Quality Stroke Does the patient have a stroke diagnosis?: No VTE Prior VTE?: No Approximate Date of Prior VTE: 12/23/23 VTE Risk Level:: Medical - moderate - high VTE Device Contraindication: N/A - Device Ordered VTE Drug Contraindication: Treatment Not Indicated
[2024-07-12 11:39] LABS: Glucose, Whole Blood 157 mg/dL (60-115)
[2024-07-12] MEDS: Furosemide 100 MG/10 ML VIAL 60 MG IVPUSH (11:39)
--- NOTE | 2024-07-12 12:12 | PM.EVENT ---
Event Note Date of Service: 07/12/24 Event Note: Rapid response called for rapid response called for shortness breath, increased work of breathing, saturation 65%. Patient given 60 of IV Lasix and put on rescue BiPAP with significant improvement in symptoms. ABG with pH of 7.34, pCO2 of 58, chest x-ray and labs pending. Time Spent With Patient Time: Total time managing care of this patient today ____ minutes.
[2024-07-12 12:37] LABS: D Dimer High Sensitivity 1970 NG/ML
--- NOTE | 2024-07-12 12:39 | PC.NURSE ---
At around 1130, this RN was alerted by the IT COMPLIANCE MANAGER that pt was experiencing SOB while sitting on recliner. rapid response called. pt found to have an O2 sat of 66% of 2L NC with increased work of breathing. 60 of Lasix IVP given. non-rebreather mask was applied, improving O2 sat to 94%. pt was then transitioned to BIPAP with o2 sat now at 97% with no SOB. At this time, pt resting in bed with stable respirations, no s/s of respiratory distress, and BIPAP in place. Chest Xray and labs ordered.
[2024-07-12 12:51] LABS: B Type Natriuretic Peptide 135 pg/mL (<100)
[2024-07-12 12:57] LABS: Troponin-I High Sensitivity 36.7 ng/L (<3.5-35.0)
[2024-07-12 12:58] LABS: Anion Gap 16 (12-20); Blood Urea Nitrogen 23 mg/dL (9-16); Carbon Dioxide 32 mmol/L (22-29); Chloride 99 mmol/L (96-108); Creatinine Clr Calc Pharmacy 49.1; Estimated Glomerular Filt Rate > 60; Glucose Random 162 mg/dL (60-115); Potassium 4.7 mmol/L (3.3-5.1); Sodium 142 mmol/L (135-145)
--- NOTE | 2024-07-12 14:59 | ECG_ITS ---
Test Reason : cp Blood Pressure : */* mmHG Vent. Rate : 63 BPM Atrial Rate : 63 BPM P-R Int : 150 ms QRS Dur : 80 ms QT Int : 416 ms P-R-T Axes : 50 13 22 degrees QTcB Int : 425 ms Poor data quality, interpretation may be adversely affected Normal sinus rhythm with sinus arrhythmia Normal ECG When compared with ECG of 12-Jul-2024 11:33, Vent. rate has decreased by 35 bpm QRS voltage has decreased T wave amplitude has decreased in Anterior leads Referred By: Sammy Segura Electronically Signed By: ELADIA HILL
[2024-07-12] MEDS: iohexoL 350 MG/ML 100 ML INFUS..BTL IV (18:41)
[2024-07-12] MEDS: traMADoL HCL 50 MG TABLET 25 MG PO (20:32)
[2024-07-13] MEDS: 0.9 % Sodium Chloride Flush 3 ML SYRINGE IVFLUSH ×3 (00:13→16:21)
[2024-07-13 03:21] VITALS: BP 131/66; PULSE 78; RESP 18; TEMP 36.3; O2SAT 95
[2024-07-13] MEDS: Acetaminophen 325 MG TABLET 650 MG PO (05:59)
[2024-07-13 07:28] VITALS: BP 122/63; PULSE 64; RESP 17; TEMP 36.6; O2SAT 97
[2024-07-13] MEDS: Gabapentin 100 MG CAPSULE 200 MG PO ×3 (08:08→20:18)
[2024-07-13] MEDS: Azithromycin 250 MG TABLET PO (08:08)
[2024-07-13] MEDS: Furosemide 20 MG TABLET PO (08:08)
[2024-07-13] MEDS: atenoloL 25 MG TABLET PO (08:08)
[2024-07-13] MEDS: cefTRIAXone sodium 1 GM VIAL IVPUSH (08:09)
[2024-07-13 08:37] LABS: Influenza A PCR NEGATIVE (Negative); Influenza B PCR NEGATIVE (Negative); Resp Syncy Virus RNA Qual PCR NEGATIVE (Negative); SARS COV2 PCR INHOUSE NEGATIVE (Negative)
[2024-07-13 08:53] VITALS: PULSE 75; RESP 19; O2SAT 94
--- NOTE | 2024-07-13 09:45 | P.PNIM_ITS ---
Subjective Subjective Date of Service: 07/13/24 Interval History: REJECTOR yesterday for episode of sob, improved after about 1 hour, now with similar event this AM Physical Exam 2 Vital Signs: Vital Signs: Last Vital Signs Temp 97.9 F 07/13/24 07:28 Pulse 64 07/13/24 07:28 Resp 19 07/13/24 08:53 BP 122/63 07/13/24 07:28 Pulse Ox 97 07/13/24 07:28 O2 Del Method Nasal Cannula 07/13/24 07:28 O2 Flow Rate 2 07/13/24 03:21 BMI result Body Mass Index 29.2 Const: General: cooperative, healthy appearing, comfortable and no acute distress Orientation/consciousness: patient oriented x3 HEENT: Face and sinus: Yes normal facial exam Mouth: moist mucous membranes Neck: Neck: Yes normal visual inspection, Yes full ROM and Yes trachea midline Chest: Chest palpation & inspection: normal inspection of the chest Resp: Effort & Inspection: normal respiratory effort, able to speak in complete sentences and no respiratory distress GI: Inspection: Yes normal to inspection Back/Spine/Pelvis: Cervical Spine: normal cervical lordosis Thoracic/Lumbar Spine: thoracic and lumbar spine normal to inspection Skin: General skin exam: no rashes or lesions noted Neuro: General: patient oriented x3, tone normal and moves all extremities Extrem: General: Yes normal to inspection and Yes capillary refill normal Objective Data Active Medications Acetaminophen (Acetaminophen 325 Mg Tablet) 650 mg PO Q6H PRN PRN Reason: Pain, Mild 1-3,fever,headache Last Admin: 07/13/24 05:59 Dose: 650 mg Documented By: SHEYLA Albuterol/Ipratropium (Albuterol/Iprat 2.5/0.5mg 3 Ml Ampul.Neb) 3 ml INHALE RQ4H WHILE AWAKE PRN PRN Reason: sob Atenolol (Atenolol 25 Mg Tablet) 25 mg PO DAILY [facility]; Protocol Last Admin: 07/13/24 08:08 Dose: 25 mg Documented By: EVELIO Azithromycin (Azithromycin 250 Mg Tablet) 250 mg PO MoWeFr@0900 [facility] Last Admin: 07/13/24 08:08 Dose: 250 mg Documented By: EVELIO Calcium Carbonate (Calcium Carbonate 750 Mg Tab.Chew) 750 mg PO Q4H PRN PRN Reason: Heartburn Furosemide (Furosemide 20 Mg Tablet) 20 mg PO DAILY [facility]; Protocol Last Admin: 07/13/24 08:08 Dose: 20 mg Documented By: EVELIO Gabapentin (Gabapentin 100 Mg Capsule) 200 mg PO TID [facility] Last Admin: 07/13/24 08:08 Dose: 200 mg Documented By: EVELIO Magnesium Hydroxide (Milk Of Magnesia 30 Ml Oral.Susp) 30 ml PO DAILY PRN PRN Reason: Constipation Melatonin (Melatonin 3 Mg Tablet) 6 mg PO BEDTIME PRN PRN Reason: Insomnia Sodium Chloride (0.9 % Sodium Chloride Flush 3 Ml Syringe) 3 ml IVFLUSH QSHIFT [facility] Last Admin: 07/13/24 08:09 Dose: 3 ml Documented By: EVELIO Tramadol HCl (Tramadol Hcl 50 Mg Tablet) 25 mg PO Q6H PRN PRN Reason: Pain, Severe (Pain Scale 7-10) Last Admin: 07/12/24 20:32 Dose: 25 mg Documented By: SHEYLA Labs 07/11/24 05:38 07/12/24 12:18 Labs: Laboratory Results - last 24 hr 07/12/24 07/12/24 07/13/24 11:35 12:18 07:45 D-Dimer High Sensitivty 1970 Anion Gap 16 Estim Creat Clear Calc 49.1 Estimated GFR > 60 POC Glucose 157 H Random Glucose 162 H Calcium 10.0 D B-Natriuretic Peptide 135 H Influenza Type A (PCR) NEGATIVE Influenza Type B (PCR) NEGATIVE RSV RNA Qual (PCR) NEGATIVE SARS-CoV-2 RNA (RT-PCR) NEGATIVE 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 presented with hematuria acute respiratory distress improved with brief bipap pulm eval, monitor cta negative abg minimal co2 retention Hematuria Holding Eliquis, asa now off cbi gu appreciated dc with king Acute UTI Completed ceftriaxone culture mixed alesha History of DVT 12/12/2023 Likely provoked due to hospital stay Holding Eliquis Chronic diastolic CHF Continue Lasix maintenance Coronary artery disease Hold aspirin Hypertension Amlodipine, atenolol Chronic hypoxic respiratory failure due to COPD Continue inhalers as needed DVT prophylaxis-mechanical due to hematuria Full Code reason for continued hospitalization: resp distress Quality Stroke Does the patient have a stroke diagnosis?: No VTE Prior VTE?: No Approximate Date of Prior VTE: 12/23/23 VTE Risk Level:: Medical - moderate - high VTE Device Contraindication: N/A - Device Ordered VTE Drug Contraindication: Treatment Not Indicated
--- NOTE | 2024-07-13 11:19 | MHC.CM.PN ---
IMM 07/13/24, PT W/HEMATURIA, PER HOSPITALIST PT WILL REMAIN INPT [place] IF NO MORE BLEEDING WILL BE CLEARED FOR DC TO STR AT [facility] TOMORROW, CM RECEIVED CALL FROM [facility] LIAISON WHO REPORTED THEY HAVE AUTH FROM PT'S HNE INS PLAN, LIAISON UPDATED ON PLAN AND CM WILL CONT TO FOLLOW DC NEEDS.
--- NOTE | 2024-07-13 13:51 | P.CONPL_ITS ---
History of Present Illness History of Present Illness Consult date: 07/13/24 Chief complaint: Dyspnea Narrative: 84-year-old gentleman with underlying CAD, TAVR in December of 2023, diastolic dysfunction, COPD on 2 L admitted on 07/08/2023 with with hematuria and obstructive uropathy. Hospital course significant for development of episodes of dyspnea of unclear etiology. Patient had CT angio chest that did not demonstrate pulmonary emboli or significant infiltrate, but some mild pulmonary edema. This a.m. patient is on his baseline 2 L supplemental oxygen and no respiratory distress and appears to be at baseline respiratory status. Review of Systems 2 Constitutional: Constitutional: Denies daytime sleepiness, Denies excessive sweating, Denies fatigue, Denies fever(s), Denies lethargy, Denies malaise, Denies night sweats, Denies snoring and Denies weight loss Eyes: Eyes: Denies blurry vision and Denies itchy eyes ENT: Denies nasal congestion, Denies post nasal drip, Denies sinus pain, Denies sinus pressure and Denies other ( Thrush) Cardiovascular: Cardiovascular: Denies chest pain, Denies pedal edema, Denies dyspnea, Denies orthopnea and Denies paroxysmal nocturnal dyspnea Respiratory: Respiratory: Denies cough, Denies hemoptysis, Denies excessive phlegm production, Denies dyspnea, Denies snoring and Denies wheezing Gastrointestinal: Gastrointestinal: Denies abdominal pain and Denies heartburn Musculoskeletal: Musculoskeletal: Denies myalgias, Denies arthralgias and Denies joint swelling Integumentary/Breasts: Skin/Breast: Denies rash Neurologic: Denies memory loss and Denies seizure-like activity Psychiatric: Psychiatric: Denies abnormal sleep pattern, Denies anxiety and Denies memory loss Endocrine: Endocrine: Denies excessive sweating, Denies fatigue and Denies heat intolerance Hematologic/Lymphatic: Hematologic/Lymphatic: Denies easy bruising Allergic/Immunologic: Allergic/Immunologic: Denies itchy eyes, Denies seasonal rhinorrhea and Denies wheezing PMFSH Past Medical History Medical History Presence of prosthetic heart valve Aortic stenosis Bacteriuria Congestive heart disease Chronic lung disease Chronic respiratory failure Pre-op chest exam Inferior OR Pneumonitis Pulmonary nodules BPH (benign prostatic hyperplasia) COPD (chronic obstructive pulmonary disease) Pneumonia HTN (hypertension) Family History Family History Mother CAD (coronary artery disease) Heart attack Father HTN (hypertension) Brother H/O heart bypass surgery Sister Afib Surgical History Surgical History S/P cardiac catheterization History of carpal tunnel surgery of right wrist Hx of cardiac cath Social History Social History Household Members: Spouse and Family Housing: House Do you presently have visiting nurse or other home services: Yes (1x week) Alcohol intake: former Patient Tobacco Use Status: Former Tobacco user Tobacco use type: Cigarette e-Cigarette/Vaping Use: Never Used Second Hand Smoke Exposure: Yes (family smokes in the house) Advance Directives Date on File: 08/18/23 service: No Current occupational status: retired Meds Allergies Allergy/AdvReac Type Severity Reaction Status Date / Time ibuprofen Allergy Mild Gastrointestinal Verified 07/08/24 07:35 Upset Active Medications: Current Medications Acetaminophen (Acetaminophen 325 Mg Tablet) 650 mg PO Q6H PRN PRN Reason: Pain, Mild 1-3,fever,headache Last Admin: 07/13/24 05:59 Dose: 650 mg Albuterol/Ipratropium (Albuterol/Iprat 2.5/0.5mg 3 Ml Ampul.Neb) 3 ml INHALE RQ4H WHILE AWAKE PRN PRN Reason: sob Atenolol (Atenolol 25 Mg Tablet) 25 mg PO DAILY [facility]; Protocol Last Admin: 07/13/24 08:08 Dose: 25 mg Azithromycin (Azithromycin 250 Mg Tablet) 250 mg PO MoWeFr@0900 [facility] Last Admin: 07/13/24 08:08 Dose: 250 mg Calcium Carbonate (Calcium Carbonate 750 Mg Tab.Chew) 750 mg PO Q4H PRN PRN Reason: Heartburn Furosemide (Furosemide 20 Mg Tablet) 20 mg PO DAILY [facility]; Protocol Last Admin: 07/13/24 08:08 Dose: 20 mg Gabapentin (Gabapentin 100 Mg Capsule) 200 mg PO TID [facility] Last Admin: 07/13/24 08:08 Dose: 200 mg Magnesium Hydroxide (Milk Of Magnesia 30 Ml Oral.Susp) 30 ml PO DAILY PRN PRN Reason: Constipation Melatonin (Melatonin 3 Mg Tablet) 6 mg PO BEDTIME PRN PRN Reason: Insomnia Sodium Chloride (0.9 % Sodium Chloride Flush 3 Ml Syringe) 3 ml IVFLUSH QSHIFT [facility] Last Admin: 07/13/24 08:09 Dose: 3 ml Tramadol HCl (Tramadol Hcl 50 Mg Tablet) 25 mg PO Q6H PRN PRN Reason: Pain, Severe (Pain Scale 7-10) Last Admin: 07/12/24 20:32 Dose: 25 mg Home Medications ?Medication ?Instructions ?Recorded ?Confirmed ?Last Taken ?Type atenolol 25 mg tablet 25 mg PO DAILY 06/19/20 07/08/24 07/07/24 History aspirin 81 mg tablet,delayed 81 mg PO DAILY 11/19/20 07/08/24 07/07/24 History release pantoprazole 20 mg tablet,delayed 20 mg PO DAILY@0630 11/19/20 07/08/24 07/07/24 History release (Protonix) fluticasone propionate 50 1 spray intranasal DAILY Congestion 02/12/21 07/08/24 07/07/24 History mcg/actuation nasal spray,suspension oxycodone-acetaminophen 5 mg-325 1 tab PO QID PRN Pain (Scale Score 02/12/21 07/08/24 07/07/24 History mg tablet 1-3) nebulizers 10/15/22 02/23/24 Unknown History Oxygen Home Use 01/08/23 02/23/24 Unknown History gabapentin 100 mg capsule 200 mg PO TID 04/10/23 07/08/24 07/07/24 History albuterol sulfate 2.5 mg/3 mL 2.5 mg inhalation Q6H PRN for 08/17/23 07/08/24 12/17/23 History (0.083 %) solution for nebulization dyspnea albuterol sulfate 90 mcg/actuation 2 puff inhalation QID PRN SOB 12/18/23 07/08/24 12/17/23 History aerosol inhaler furosemide 20 mg tablet 20 mg PO DAILY 02/16/24 07/08/24 07/07/24 History acetaminophen 325 mg tablet 650 mg PO Q6H PRN Fever Or Pain 04/03/24 07/08/24 Unknown History amlodipine 10 mg tablet 10 mg PO DAILY 04/03/24 07/08/24 07/07/24 History azithromycin 250 mg tablet 250 mg PO MOWEFR 07/08/24 07/08/24 07/06/24 History Physical Exam 2 Vital Signs: Vital Signs: Last Vital Signs Temp 97.9 F 07/13/24 07:28 Pulse 64 07/13/24 07:28 Resp 19 07/13/24 08:53 BP 122/63 07/13/24 07:28 Pulse Ox 97 07/13/24 07:28 O2 Del Method Nasal Cannula 07/13/24 07:28 O2 Flow Rate 2 07/13/24 03:21 BMI result Body Mass Index 29.2 Const: General: no acute distress and alert Nutritional Appearance: not obese Orientation/consciousness: Other orientation findings ( oriented) HEENT: Head: Yes atraumatic Eyes: General: appearance normal, both eyes and all related structures S clerae: sclerae normal EOM: EOMs intact bilaterally Neck: Neck: Yes supple Lymphatic: no lymphadenopathy noted Resp: Effort & Inspection: normal respiratory effort and no use of accessory muscles Auscultation: clear to auscultation bilaterally Cardio: Rate: regular rate Rhythm: regular rhythm Heart sounds: no gallops, no murmurs and no rubs Skin: General skin exam: other ( warm) Extrem: General: No clubbing, No cyanosis and Yes edema (Mild bilateral) Results Laboratory Findings 07/11/24 05:38 07/12/24 12:18 Abnormal lab findings: Abnormal Labs 07/08/24 07/08/24 07/08/24 08:18 09:31 09:32 WBC 16.6 H Hgb 13.1 L Hct 41.9 L MCHC Plt Count MPV Neut % (Auto) 85.5 H Lymph % (Auto) 3.0 L Lymph # (Auto) 0.5 L [place] # (Auto) 1.7 H Abs Immat Gran (auto) 0.06 H Absolute Neuts (auto) 14.2 H Carbon Dioxide BUN 23 H POC Glucose Random Glucose 161 H Troponin I High Sens B-Natriuretic Peptide Urine Color Red A Urine Protein 300 (3+) H Urine Blood Large (3+) H Ur Leukocyte Esterase Large (3+) H Urine RBC >20 H Urine WBC >50 H 07/09/24 07/10/24 07/11/24 06:11 05:59 05:38 WBC 11.0 H 12.5 H 14.1 H Hgb 12.9 L 13.5 L 13.0 L Hct 41.7 L 41.3 L MCHC 30.9 L Plt Count 402 H 431 H MPV 9.2 L Neut % (Auto) Lymph % (Auto) Lymph # (Auto) [place] # (Auto) Abs Immat Gran (auto) Absolute Neuts (auto) Carbon Dioxide BUN 17 H 19 H 18 H POC Glucose Random Glucose 120 H Troponin I High Sens B-Natriuretic Peptide Urine Color Urine Protein Urine Blood Ur Leukocyte Esterase Urine RBC Urine WBC 07/12/24 07/12/24 11:35 12:18 WBC Hgb Hct MCHC Plt Count MPV Neut % (Auto) Lymph % (Auto) Lymph # (Auto) [place] # (Auto) Abs Immat Gran (auto) Absolute Neuts (auto) Carbon Dioxide 32 H BUN 23 H POC Glucose 157 H Random Glucose 162 H Troponin I High Sens 36.7 H B-Natriuretic Peptide 135 H Urine Color Urine Protein Urine Blood Ur Leukocyte Esterase Urine RBC Urine WBC Microbiology: Microbiology 07/08/24 09:38 Blood - Venous Blood Culture - Final No growth after 5 days. 07/08/24 09:31 Blood - Venous Blood Culture - Final No growth after 5 days. 07/08/24 Unknown Urine Catheterized - Bhatia Catheter Urine Culture - Final Assessment and Plan (1) COPD (chronic obstructive pulmonary disease): Qualifiers: COPD type: COPD with acute exacerbation Qualified Code(s): J44.1 - Chronic obstructive pulmonary disease with (acute) exacerbation Status: Acute (2) Dyspnea: Status: Acute Plan Impression: 84-year-old gentleman with underlying diastolic dysfunction, TAVR, 2 L dependent COPD admitted with hematuria and obstructive uropathy with hospital course significant for episodes of dyspnea of unclear etiology. No evidence of pulmonary emboli or pneumonia. CT chest does demonstrate mild pulmonary edema with symptomatic improvement after dose of diuretic, though with no significant urine output. Also, may have anxiety component. Recommendations: Consider obtaining at least limited echo abuse to evaluate LVF and aortic well function to exclude episodes of flash pulmonary edema. Otherwise, may benefit from additional diuretic regimen, though appears to be at baseline respiratory status at this time Procedures Date of Service Date of Service: 07/13/24
[2024-07-13] MEDS: traMADoL HCL 50 MG TABLET 25 MG PO ×2 (14:04→20:18)
[2024-07-13 15:58] VITALS: BP 152/68; PULSE 73; RESP 19; TEMP 36.8; O2SAT 98
--- NOTE | 2024-07-13 17:00 | CA_ITS ---
Transthoracic Echocardiogram Patient (Last, First, Middle): Adonis Truong E Gender: Male Date of : 1940 Age: 84 Procedure Date: 07/13/2024 Procedure Type: Transthoracic Echocardiogram [place] [facility] [place] Height: 162.56 cm Weight: 77.11 kg BSA: 1.83 m2 Heart Rate: bpm BP: 122 / 63 mmHg Diagnostic Imaging Manager: Referring MD: Sammy Segura MD Symptoms: resp distress, history of TAVR Study Quality: Fair, contrast ECG Rhythm: Sinus Conclusions: - LVEF difficult to assess, probably >50%. - There is evidence of regional wall motion abnormalities. - A bioprosthetic aortic valve is present. The prosthetic aortic valve appears to be functioning normally. Findings Procedure Information Contrast agent, definity, is being given per protocol without apparent complications. Left Ventricle Normal left ventricular cavity size. There is mildly increased left ventricular wall thickness. There is evidence of regional wall motion abnormalities. Evidence suggests grade I (mild) diastolic dysfunction. LVEF difficult to assess, probably >50%. Wall Motion Rest Echo Findings The inferoseptal wall is akinetic. 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 Right Ventricle Mildly increased right ventricular cavity size. There is normal right ventricular systolic function. Atria Both atria are normal in size. Aortic Valve A bioprosthetic aortic valve is present. The prosthetic aortic valve appears to be functioning normally. The aortic valve was not well visualized. The mean gradient is 9 mmHg. There is no aortic valve regurgitation. Mitral Valve The mitral valve appears normal. There is no mitral valve regurgitation. There is no mitral valve stenosis. Pulmonic Valve The pulmonic valve is likely normal. Tricuspid Valve There is trace tricuspid valve regurgitation. There is no evidence of pulmonary hypertension. Great Vessels The sinuses of valsalva is normal in size. Venous The inferior vena cava is mildly dilated. Pericardium/Pleural There is no evidence of pericardial effusion. Prior Study Comparison Changes noted compared to prior study dated: 08/18/2023. s/p TAVR. Measurements 2D Linear Measurements IVSd: 1.23 0.6-0.9/0.6-1.0 cm LVIDd: 4.15 3.9-5.3/4.2-5.9 cm LVIDd Index: 2.27 2.4-3.2/2.2-3.1 cm/m2 LVIDs: 2.59 2.0-3.6 cm LVPWd: 1.20 0.7-1.1 cm Ao Root: 2.10 2.1-3.5 cm LA Diam: 3.50 2.7-3.8/3.0-4.0 cm LAIDs Index: 1.91 1.5-2.3 cm/m2 LV Mass: 221.95 67-162/88-224 g LV Mass Index: 121.29 43-95/49-115 g/m2 LVOT Diam: 2.10 3.0+(-)1.3 cm 2D Systolic Function EF 4C: 68.20 >55% EF 2C: 57.00 >55% EF BiP: 60.10 >55% Mitral Valve MV VTI: 0.31 MV Pk Conner: 1.26 MV Mn Conner: 0.63 MV Pk Grad: 6.00 MV Mn Grad: 2.00 MV Pk E: 0.64 MV PK A: 1.22 MV Decel Time: 157.00 E/A: 0.50 E'Lateral: 8.05 E'Medial: 3.70 E/E' Med: 17.20 E/E' Lat: 7.90 PHT: 46.00 MVA PHT: 4.78 MVA Continuity: 2.72 Decel [place]: 4.07 Aortic Valve AoV Pk Conner: 2.07 AoV Mn Conner: 1.33 AoV VTI: 0.37 AoV Pk Grad: 17.00 Aov Mn Grad: 9.00 GISELLA Cont.VTI: 2.23 LVOT LVOT Pk Conner: 0.89 LVOT Mn Conner: 0.62 LVOT VTI: 0.24 LVOT Pk Grad: 3.00 LVOT Mn Grad: 2.00 LVOT Diam: 2.10 LVOT Area: 3.46 Diastolic Function MV Pk E: 0.64 MV Pk A: 1.22 E/A: 0.50 E'Medial: 3.70 E/E' Med: 17.20 E' Laterial: 8.05 E/E' Lat: 7.90 Right Ventricle TAPSE (mm): 20.90 Tricuspid Valve TR Pk Conner: 1.85 TR Pk Grad: 14.00 Great Vessels Aorta Ao Root-2D: 2.10 2.0-3.7 cm Pulmonary Valve PV Pk Conner: 1.14 Peak PV Grad: 5.00 Updated in Other Vendor System with Status of Final James Trejo MD electronically signed on 07/13/2024 4:43:49 PM with status of Final
[2024-07-13 20:00] VITALS: BP 141/67; PULSE 77; RESP 16; TEMP 37.2; O2SAT 93
[2024-07-14] MEDS: 0.9 % Sodium Chloride Flush 3 ML SYRINGE IVFLUSH ×4 (00:53→20:40)
[2024-07-14 03:21] VITALS: BP 124/63; PULSE 78; RESP 18; TEMP 36.7; O2SAT 98
[2024-07-14] MEDS: traMADoL HCL 50 MG TABLET 25 MG PO ×2 (04:52→20:36)
[2024-07-14 07:28] LABS: Hematocrit 39.2 % (42.0-52.0); Hemoglobin 12.3 g/dl (14.0-18.0); Mean Corpuscular HGB Conc 31.4 g/dl (31.0-36.0); Mean Corpuscular Hemoglobin 27.7 pg (27.0-33.0); Mean Corpuscular Volume 88.3 fL (80.0-98.0); Mean Platelet Volume 9.9 fL (9.4-12.4); Platelet Count 420 X10*3/uL (160-400); Red Blood Count 4.44 X10*6/uL (4.60-5.80); Red Cell Distribution Width 13.7 % (11.0-16.0); White Blood Count 12.4 X10*3/uL (4.8-10.8)
[2024-07-14 07:35] VITALS: BP 136/69; PULSE 79; RESP 18; TEMP 36.9; O2SAT 94
[2024-07-14 07:42] LABS: Blood Urea Nitrogen 24 mg/dL (9-16); Calcium 9.3 mg/dL (8.4-10.2); Creatinine Clr Calc Pharmacy 54.9; Estimated Glomerular Filt Rate > 60; Glucose Random 129 mg/dL (60-115); Magnesium 2.2 mg/dL (1.6-2.6)
[2024-07-14 07:49] LABS: Anion Gap 14 (12-20); Carbon Dioxide 30 mmol/L (22-29); Chloride 100 mmol/L (96-108); Potassium 3.5 mmol/L (3.3-5.1); Sodium 140 mmol/L (135-145)
[2024-07-14] MEDS: Acetaminophen 325 MG TABLET 650 MG PO (08:44)
[2024-07-14] MEDS: Gabapentin 100 MG CAPSULE 200 MG PO ×3 (08:45→20:37)
[2024-07-14] MEDS: Furosemide 20 MG TABLET PO (08:45)
[2024-07-14] MEDS: atenoloL 25 MG TABLET PO (08:45)
--- NOTE | 2024-07-14 10:18 | P.PNIM_ITS ---
Subjective Subjective Date of Service: 07/14/24 Interval History: overall improved, still with burning in urine Physical Exam 2 Vital Signs: Vital Signs: Last Vital Signs Temp 98.5 F 07/14/24 07:35 Pulse 79 07/14/24 07:35 Resp 18 07/14/24 07:35 BP 136/69 07/14/24 07:35 Pulse Ox 94 07/14/24 07:35 O2 Del Method Nasal Cannula 07/14/24 07:35 O2 Flow Rate 2 07/14/24 07:35 BMI result Body Mass Index 29.2 Const: General: no acute distress and alert Nutritional Appearance: not obese Orientation/consciousness: patient oriented x3 and Other orientation findings ( oriented) HEENT: Head: Yes atraumatic Face and sinus: Yes normal facial exam M outh: moist mucous membranes Eyes: General: appearance normal, both eyes and all related structures S clerae: sclerae normal EOM: EOMs intact bilaterally Neck: Neck: Yes supple Lymphatic: no lymphadenopathy noted Chest: Chest palpation & inspection: normal inspection of the chest Resp: Effort & Inspection: normal respiratory effort and no use of accessory muscles Auscultation: clear to auscultation bilaterally Cardio: Rate: regular rate Rhythm: regular rhythm Heart sounds: no gallops, no murmurs and no rubs GI: Inspection: Yes normal to inspection Back/Spine/Pelvis: Cervical Spine: normal cervical lordosis Thoracic/Lumbar Spine: thoracic and lumbar spine normal to inspection Skin: General skin exam: other ( warm) Neuro: General: patient oriented x3, tone normal and moves all extremities Extrem: General: No clubbing, No cyanosis and Yes edema (Mild bilateral) Objective Data Active Medications Acetaminophen (Acetaminophen 325 Mg Tablet) 650 mg PO Q6H PRN PRN Reason: Pain, Mild 1-3,fever,headache Last Admin: 07/14/24 08:44 Dose: 650 mg Documented By: NOEMY Albuterol/Ipratropium (Albuterol/Iprat 2.5/0.5mg 3 Ml Ampul.Neb) 3 ml INHALE RQ4H WHILE AWAKE PRN PRN Reason: sob Atenolol (Atenolol 25 Mg Tablet) 25 mg PO DAILY [facility]; Protocol Last Admin: 07/14/24 08:45 Dose: 25 mg Documented By: NOEMY Azithromycin (Azithromycin 250 Mg Tablet) 250 mg PO MoWeFr@0900 [facility] Last Admin: 07/13/24 08:08 Dose: 250 mg Documented By: EVELIO Calcium Carbonate (Calcium Carbonate 750 Mg Tab.Chew) 750 mg PO Q4H PRN PRN Reason: Heartburn Furosemide (Furosemide 20 Mg Tablet) 20 mg PO DAILY [facility]; Protocol Last Admin: 07/14/24 08:45 Dose: 20 mg Documented By: NOEMY Furosemide (Furosemide 40 Mg/4 Ml Vial) 40 mg IVPUSH ONCE ONE; Protocol Stop: 07/14/24 10:17 Gabapentin (Gabapentin 100 Mg Capsule) 200 mg PO TID [facility] Last Admin: 07/14/24 08:45 Dose: 200 mg Documented By: NOEMY Magnesium Hydroxide (Milk Of Magnesia 30 Ml Oral.Susp) 30 ml PO DAILY PRN PRN Reason: Constipation Melatonin (Melatonin 3 Mg Tablet) 6 mg PO BEDTIME PRN PRN Reason: Insomnia Sodium Chloride (0.9 % Sodium Chloride Flush 3 Ml Syringe) 3 ml IVFLUSH QSHIFT [facility] Last Admin: 07/14/24 08:45 Dose: 3 ml Documented By: NOEMY Tramadol HCl (Tramadol Hcl 50 Mg Tablet) 25 mg PO Q6H PRN PRN Reason: Pain, Severe (Pain Scale 7-10) Last Admin: 07/14/24 04:52 Dose: 25 mg Documented By: SHEYLA Labs 07/14/24 06:23 07/14/24 06:23 Labs: Laboratory Results - last 24 hr 07/14/24 06:23 MCV 88.3 MCH 27.7 MCHC 31.4 RDW 13.7 Plt Count 420 H MPV 9.9 Absolute Nucleated RBC 0.000 Nucleated RBC % (auto) 0.0 Anion Gap 14 Estim Creat Clear Calc 54.9 Estimated GFR > 60 Random Glucose 129 H Calcium 9.3 D Magnesium 2.2 Microbiology Microbiology Results: Microbiology 07/08/24 09:38 Blood Culture - Final Blood - Venous No growth after 5 days. 07/08/24 09:31 Blood Culture - Final Blood - Venous No growth after 5 days. 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 presented with hematuria acute respiratory distress improved with brief bipap, now back on 2L pulm appreciated - possibly mild volume overload ?hypertensive urgency, will give another dose of lasix iv, conitnue maintenace cta negative abg minimal co2 retention Hematuria Holding Eliquis, asa now off cbi gu appreciated dc with king Acute UTI Completed ceftriaxone culture mixed alesha History of DVT 12/12/2023 Likely provoked due to hospital stay disocntinued Eliquis acute on Chronic diastolic CHF Continue Lasix maintenance Coronary artery disease Holding aspirin Hypertension Amlodipine, atenolol Chronic hypoxic respiratory failure due to COPD Continue inhalers as needed DVT prophylaxis-mechanical due to hematuria Full Code reason for continued hospitalization: still sob Quality Stroke Does the patient have a stroke diagnosis?: No VTE Prior VTE?: No Approximate Date of Prior VTE: 12/23/23 VTE Risk Level:: Medical - moderate - high VTE Device Contraindication: N/A - Device Ordered VTE Drug Contraindication: Treatment Not Indicated
--- NOTE | 2024-07-14 10:53 | MHC.CM.PN ---
EMR REVIEWED, PER MULTIDISCIPLINARY ROUNDS PT REMAINS SOB AND NOT YET READY FOR DC, BEAR MTN UPDATED AND MAY NEED TO RESUBMIT FOR AUTH WHEN READY FOR DC, CM WILL CONT TO FOLLOW DC NEEDS.
[2024-07-14 11:39] VITALS: BP 136/69; PULSE 79; O2SAT 94
[2024-07-14] MEDS: Furosemide 40 MG/4 ML VIAL IVPUSH (11:54)
[2024-07-14] MEDS: Potassium Chloride ER 20 MEQ TAB.ER.PRT 40 MEQ PO (13:04)
[2024-07-14 16:01] VITALS: BP 135/62; PULSE 84; RESP 20; TEMP 37; O2SAT 95
--- NOTE | 2024-07-14 17:45 | HO.WOUND ---
Wound Consult: Initial 84yr old?male admitted to [facility] [place] on 07/08/24 12:39 - See progress notes and H&P for detailed history.? Wound consult placed for Sacrum while on unit.? Patient agreeable to assessment and photo documentation.? Sacrum Etiology: ?Deep Tissue Injury Wound Bed: dark maroon purple intact nonblanchable tissue over bony prominence Drainage / Odor: None Edges: ? irregular [place] wound: ? red blanchable tissue No Induration, Fluctuance or Warmth noted Pain: pain reported at each site Goals of Treatment: ? Off load pressure - foam dressing to air in pressure redistribution Recommendations: 1. Turn and Reposition every 2 hours and as needed for patient comfort.? Use pillows or wedges to support off loading positions. 2. Off Load all bony prominences with use of pillows and heel boots if needed.? Apply Preventative foams where needed. ? 3. Monitor for incontinence and moisture control, use barrier creams when needed for prevention and treatment. 4. Provide adequate and supplemental nutrition.? 5. Order low air loss mattress. 6. When applicable maintain blood glucose levels per Providers order. 7. Sacrum - Off Load Pressure with Q2 hr turns and use of pillows - Cleanse with PH balance spray or wipes, pat dry. ?Apply skin prep allow to dry.? Cover with foam dressing to aid in off loading and protection from friction. Change every 5 days and PRN. Re-consult wound care Nurse for wound deterioration or wound changes.
--- NOTE | 2024-07-14 19:29 | PC.NURSE ---
Patient alert and oriented, vss, 3L NC with crackles noted on assessment. Chronic king catheter draining yellow urine. Redness pressure injruy to coccyx and buttocks noticed and wound consult placed. Hyacinth wound RN assessed patient and staged pressure injury as DTI. Patient was able to work with physical therapy, unable to feed himself, requiring 1:1 assist. At 1147 patient's rhythm changed from normal sinus to ventricular bigeminy, provider notified. Patient asymptomatic. The rhythm changed back to NSR.
[2024-07-14 20:00] VITALS: BP 116/61; PULSE 86; RESP 17; TEMP 37.1; O2SAT 96
[2024-07-15] MEDS: Acetaminophen 325 MG TABLET 650 MG PO (00:17)
[2024-07-15] MEDS: traMADoL HCL 50 MG TABLET 25 MG PO (02:36)
[2024-07-15 03:39] VITALS: BP 162/74; PULSE 69; RESP 19; TEMP 36.7; O2SAT 95
[2024-07-15 07:50] VITALS: BP 135/63; PULSE 85; RESP 20; TEMP 36.3; O2SAT 95
[2024-07-15] MEDS: Gabapentin 100 MG CAPSULE 200 MG PO ×2 (09:00→15:07)
[2024-07-15] MEDS: Furosemide 20 MG TABLET PO (09:00)
[2024-07-15] MEDS: atenoloL 25 MG TABLET PO (09:00)
[2024-07-15] MEDS: Azithromycin 250 MG TABLET PO (09:00)
[2024-07-15] MEDS: 0.9 % Sodium Chloride Flush 3 ML SYRINGE IVFLUSH ×2 (09:01→15:16)
[2024-07-15] MEDS: Albuterol/Iprat 2.5/0.5MG 3 ML AMPUL.NEB INHALE (09:42)
--- NOTE | 2024-07-15 11:42 | MHC.CM.PN ---
Addendum entered by Christine Barreto RN 07/15/24 13:29: [facility] to transport at 3:30pm, no earlier time slots available. Original Note: Pt medically cleared for dc to [facility] at [facility], pt will need [facility] for BLS transport d/t [facility] insurance plan.
--- NOTE | 2024-07-15 11:48 | PM.DS ---
DS: Providers Provider Date of Service: 07/15/24 Date of admission: 07/08/24 12:39 Date of discharge: 07/15/24 Primary care physician: Marivel Miller MD Consults: 07/08/24 12:44 Consult to Urology [place]ine [place] [facility] [place] Reason for consultation: Hematuria on CBI, chronic Bhatia 07/13/24 09:54 Consult to Pulmonology Routine Consulting [place] [facility] [place] Reason for consultation: respiratory distress 07/14/24 13:34 Consult to Wound Care Routine Reason for consultation: redness, pressure injury to coccyx DS: Diagnosis Discharge Diagnosis (1) Hematuria: Status: Acute DS: Summary Hospital Course Hospital Course: From initial hpi: 84-year-old male with a PMH significant for CAD w/hx of NSTEMI, COPD w/chronic hypoxemic respiratory failure on 2L home O2 at baseline, hx of DVT in 11/2023 on Eliquis, HFpEF, severe aortic stenosis s/p TAVR 01/04/2024, HTN, BPH, and hx of 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 Pt with longstanding hx of urinary retention and has had chronic indwelling catheter. Pt reports presented from home at [facility] about a month ago to have his catheter changed. Was discharged to [facility] where he stayed for a few weeks and was discharged back home approximately 2 weeks ago. While at rehab pt had his Bhatia catheter changed 3 weeks ago. Reports yesterday began experiencing suprapubic pain and has not had any drainage in Bhatia since then. Notes has occasionally seen blood in his Bhatia bag, but would clear up on its own after only a short period time. Last noticed hematuria 2 days ago. In the ED pt had catheter replaced which was noted to include a great deal of sediment and hematuria. Pt was placed on CBI in the ED. pt himself denies any other acute medical complaints. No fever or chills. Denies shortness or breath, difficulty breathing, or cough above baseline. No nausea or vomiting. Denies diarrhea. In the ED pt was tachycardic up to 117, vitals otherwise stable and WNL. Labs overall grossly unremarkable and around baseline for pt. Chronically elevated leukocytosis of 16.6 around baseline. Stable normocytic anemia. No significant electrolyte abnormalities. Renal function around baseline. UA consistent with UTI. CT of abdomen/pelvis negative for nephrolithiasis or ureteral obstruction. Pt was placed on CBI and treated with ceftriaxone. Pt will be admitted to the hospital for treatment and further evaluation of hematuria requiring CBI Hospital course: Patient was admitted for urinary retention due to hematuria clotting chronic Bhatia. Was put on CBI and Eliquis and aspirin were held. Also treated with ceftriaxone for acute UTI. Cultures were negative. Completed treatment. Urine cleared CBI was discontinued. Was seen by Urology recommended maintaining chronic Bhatia catheter and following up outpatient. We will also be started on medications before BPH. For history of DVT in 01/12/2024 was likely due to hospitalization for TAVR and was also noted to be distal, therefore risks of further anticoagulation appear to outweigh benefits. Eliquis has been discontinued. For chronic diastolic CHF was continued on Lasix maintenance. For coronary disease aspirin was initially held will be restarted on discharge. For hypertension was continued on amlodipine and atenolol. For chronic hypoxic respiratory failure due to COPD remained stable. Patient is feeling better will be discharged home. Time Attestation Discharge Coordination Time (in mins): 40 Quality: Safe Use of Opioids Does Pt have an Active Cancer Diagnosis on the Problem List?: No Quality: Stroke Does the patient have a stroke diagnosis?: No Physical Exam Vital Signs: Vital Signs: Last Vital Signs Temp 97.3 F 07/15/24 07:50 Pulse 85 07/15/24 07:50 Resp 20 07/15/24 07:50 BP 135/63 07/15/24 07:50 Pulse Ox 95 07/15/24 07:50 O2 Del Method Nasal Cannula 07/15/24 07:50 O2 Flow Rate 2 07/15/24 07:50 BMI result Body Mass Index 29.2 Const: Other: awake and alert nad lungs clear abd soft neuro non focal clear urine Discharge Plan Discharge Anticipated Discharge Date/Time: 07/15/24 11:46 Patient Disposition: Xfer SNF Discharge Diagnosis: hematuria, uti Referrals: katarina coleman [Other] - 1 Week [facility] [Outside] - 1 Day (SHORT TERM REHAB) Terrence Smyth MD [Physician] - 1 Week Marivel Miller MD [Primary Care Provider] - 1 Week Discharge Medications: New tamsulosin [Flomax] 0.4 mg capsule 0.4 mg PO BEDTIME Qty: 90 0RF finasteride [Proscar] 5 mg tablet 5 mg PO DAILY Qty: 90 0RF Continued isosorbide mononitrate 60 mg tablet extended release 24 hr 60 mg PO DAILY Qty: 90 3RF atenolol 25 mg Tablet 25 mg PO DAILY albuterol sulfate 2.5 mg /3 mL (0.083 %) solution for nebulization 2.5 mg inhalation Q6H PRN (Reason: for dyspnea) amlodipine 10 mg tablet 10 mg PO DAILY acetaminophen 325 mg tablet 650 mg PO Q6H PRN (Reason: Fever Or Pain) azithromycin 250 mg tablet 250 mg PO MOWE Rx Instructions: Take 1 tablet on Thursday/Thursday/Thursday albuterol sulfate 90 mcg/actuation HFA aerosol inhaler 2 puff inhalation QID PRN (Reason: SOB) aspirin 81 mg tablet,delayed release (DR/EC) 81 mg PO DAILY pantoprazole [Protonix] 20 mg tablet,delayed release (DR/EC) 20 mg PO DAILY@0630 gabapentin 100 mg capsule 200 mg PO TID oxycodone-acetaminophen 5-325 mg tablet 1 tab PO QID PRN (Reason: Pain (Scale Score 1-3)) fluticasone propionate 50 mcg/actuation spray,suspension 1 spray intranasal DAILY (DME) nebulizers [facility] [place] See Rx Instructions .Route Rx Instructions: As directed (DME) Oxygen Home Use Kit See Rx Instructions .Route Rx Instructions: As directed furosemide 20 mg tablet 20 mg PO DAILY Discontinued Eliquis 5 mg tablet 5 mg PO BID Discharge Orders: Discharge Order (Routine); Ordered 07/15/24 Ordered By: Marques Smith Diet: Advance to usual diet Activity on Discharge: As tolerated Stand Alone Forms: Patient Portal Discharge page Print Language: Albanian Care Plan Goals: Recovery Health Concerns: UTI and hematuria Plan of Treatment: Stop apixaban as DVT appears to have been distal, and likely provoked from TAVR and completed greater than 6 months treatment Okay to restart aspirin, monitor for further bleeding, acute Bhatia for now and follow up with Urology Assessment: See above
[2024-07-15 11:55] VITALS: BP 110/58; PULSE 74; RESP 18; TEMP 36.6; O2SAT 97
== END 2024-07-15 15:56 | disposition skilled nursing facility (03) | DRG 698 ==
LOC: HO.ED 11:18 → HO.EDOVER 13:07 → HO.S3 07-09 13:41 → HO.IMC 07-12 16:01
PROVIDERS: Internal Medicine; Admitting Provider Student in an Organized Health Care Education/Training Program; Emergency Provider Emergency Medicine; PCP Internal Medicine; Visit Provider Family Medicine
DX: T83.098A Other mechanical complication of other urinary catheter, initial encounter (principal); I50.33 Acute on chronic diastolic (congestive) heart failure; D68.32 Hemorrhagic disorder due to extrinsic circulating anticoagulants; G81.94 Hemiplegia, unspecified affecting left nondominant side; J96.11 Chronic respiratory failure with hypoxia; N39.0 Urinary tract infection, site not specified; Y73.8 Miscellaneous gastroenterology and urology devices associated with adverse incidents, not elsewhere classified; B91 Sequelae of poliomyelitis; R31.0 Gross hematuria; I11.0 Hypertensive heart disease with heart failure; N40.1 Benign prostatic hyperplasia with lower urinary tract symptoms; J44.9 Chronic obstructive pulmonary disease, unspecified; T45.515A Adverse effect of anticoagulants, initial encounter; I25.10 Atherosclerotic heart disease of native coronary artery without angina pectoris; G62.9 Polyneuropathy, unspecified; R33.8 Other retention of urine; Z99.81 Dependence on supplemental oxygen; Z20.822 Contact with and (suspected) exposure to COVID-19; Z86.718 Personal history of other venous thrombosis and embolism; Z95.2 Presence of prosthetic heart valve; Z79.51 Long term (current) use of inhaled steroids; Z79.82 Long term (current) use of aspirin; Z79.899 Other long term (current) drug therapy
CPT/HCPCS: 0241U; 36415; 36600; 71045; 71275; 74176; 80048; 81001; 82947; 83605; 83735; 83880; 84484; 85025; 85027; 85379; 86850; 86900; 86901; 87040; 87086; 93005; 93306; 94660; 97110; 97162; 97530; 99285; C1758; J0696; J1940; Q9957; Q9967

== ENCOUNTER → 2024-07-08 09:42 | Outpatient (BNV) | payer MEDICARE, MEDICAID, SELFPAY | PROVIDERS: Emergency Provider Emergency Medicine; PCP Internal Medicine; Visit Provider Radiology Diagnostic Radiology | DX: R10.9 Unspecified abdominal pain (principal); R31.9 Hematuria, unspecified | CPT/HCPCS: 74176 ==

== ENCOUNTER 2024-07-08 12:39 | Outpatient (BNV) | payer MEDICARE, MEDICAID, SELFPAY | END 2024-07-12 11:33 | PROVIDERS: Admitting Provider Student in an Organized Health Care Education/Training Program; Emergency Provider Emergency Medicine; PCP Internal Medicine; Visit Provider Internal Medicine | DX: R07.9 Chest pain, unspecified (principal) | CPT/HCPCS: 93010 ==

== ENCOUNTER 2024-07-08 12:39 | Outpatient (BNV) | payer MEDICARE, MEDICAID, SELFPAY | END 2024-07-12 12:07 | PROVIDERS: Admitting Provider Student in an Organized Health Care Education/Training Program; Emergency Provider Emergency Medicine; PCP Internal Medicine; Visit Provider Radiology Diagnostic Radiology | DX: J98.11 Atelectasis (principal) | CPT/HCPCS: 71045; 71275 ==

== ENCOUNTER 2024-07-08 12:39 | Outpatient (BNV) | payer MEDICARE, MEDICAID, SELFPAY | END 2024-07-09 09:50 | PROVIDERS: Admitting Provider Student in an Organized Health Care Education/Training Program; Emergency Provider Emergency Medicine; PCP Internal Medicine; Visit Provider Radiology Vascular & Interventional Radiology | DX: R06.02 Shortness of breath (principal) | CPT/HCPCS: 71045 ==

== ENCOUNTER 2024-07-08 12:39 | Outpatient (BNV) | payer MEDICARE, MEDICAID, SELFPAY | END 2024-07-13 17:00 | PROVIDERS: Admitting Provider Student in an Organized Health Care Education/Training Program; Emergency Provider Emergency Medicine; PCP Internal Medicine; Visit Provider Internal Medicine | DX: R06.02 Shortness of breath (principal) | CPT/HCPCS: 93306 ==

== ENCOUNTER → 2024-07-08 12:39 | Outpatient (BNV) | payer MEDICARE, MEDICAID, SELFPAY | PROVIDERS: Admitting Provider Student in an Organized Health Care Education/Training Program; Emergency Provider Emergency Medicine; PCP Internal Medicine; Visit Provider Student in an Organized Health Care Education/Training Program | DX: R31.0 Gross hematuria (principal) | CPT/HCPCS: 99223; 99232; 99233; 99239; 99499 ==

== ENCOUNTER → 2024-07-08 12:39 | Outpatient (BNV) | payer MEDICARE, MEDICAID, SELFPAY | PROVIDERS: Admitting Provider Student in an Organized Health Care Education/Training Program; Emergency Provider Emergency Medicine; PCP Internal Medicine; Visit Provider Urology | DX: N30.00 Acute cystitis without hematuria (principal); R31.0 Gross hematuria | CPT/HCPCS: 99222 ==

== ENCOUNTER → 2024-07-08 12:39 | Outpatient (BNV) | payer MEDICARE, MEDICAID, SELFPAY | PROVIDERS: Admitting Provider Student in an Organized Health Care Education/Training Program; Emergency Provider Emergency Medicine; PCP Internal Medicine; Visit Provider Internal Medicine Pulmonary Disease | DX: J44.1 Chronic obstructive pulmonary disease with (acute) exacerbation (principal) | CPT/HCPCS: 99222 ==

== ENCOUNTER 2024-07-25 15:05 | Emergency (ER) | payer MEDICARE, MEDICAID, SELFPAY ==
--- NOTE | ~2024-07-25 | XR_ITS ---
EXAMINATION: XR CHEST CLINICAL INFORMATION: chest pain COMPARISON: CTA chest 07/12/2024. TECHNIQUE: 2 views of the chest were obtained. FINDINGS: The lungs are expanded and clear of acute process. Heart size and pulmonary vascularity is normal. There is an aortic valve stent in place. Dorsal screws and rods in lower cervical spine for fusion are noted. Minimal levoscoliosis upper dorsal spine is noted. XR/XR chest 2V IMPRESSION: Unremarkable chest examination. Electronically signed by: Osvaldo Muniz MD 07/25/2024 04:30 PM EST
[2024-07-25 15:17] VITALS: BP 113/61; PULSE 85; RESP 16; TEMP 36.7; O2SAT 94; BMI 28.5
[2024-07-25 15:20] VITALS: BP 105/58; PULSE 81; O2SAT 91
--- NOTE | 2024-07-25 15:34 | ED_ITS ---
HPI - General Adult General Chief complaint: General Medical Stated complaint: CP EARLIER,NO PAIN @ THIS TIME FROM SNF PER EMS Time Seen by Provider: 07/25/24 15:26 Source: patient Mode of arrival: ambulatory Limitations: no limitations History of Present Illness ED Provider: Dr. Gomez HPI narrative: 84 year old male PMH: COPD, UTI, TAVR 2023, DVT on eliquis, BPH, HTN, pneumonia who presents emergency department after having some chest pain while doing physical therapy this morning patient is able to complete the physical therapy pain was in the center of the chest has since resolved has no pain at this time he had no pain at rest earlier patient has had upper respiratory symptoms for the past 2 weeks with congestion Related Data Home Medications ?Medication ?Instructions ?Recorded ?Confirmed atenolol 25 mg tablet 25 mg PO DAILY 06/19/20 07/08/24 aspirin 81 mg tablet,delayed 81 mg PO DAILY 11/19/20 07/08/24 release pantoprazole 20 mg tablet,delayed 20 mg PO DAILY@0630 11/19/20 07/08/24 release (Protonix) fluticasone propionate 50 1 spray intranasal DAILY Congestion 02/12/21 07/08/24 mcg/actuation nasal spray,suspension oxycodone-acetaminophen 5 mg-325 1 tab PO QID PRN Pain (Scale Score 02/12/21 07/08/24 mg tablet 1-3) nebulizers 10/15/22 02/23/24 Oxygen Home Use 01/08/23 02/23/24 gabapentin 100 mg capsule 200 mg PO TID 04/10/23 07/08/24 albuterol sulfate 2.5 mg/3 mL 2.5 mg inhalation Q6H PRN for 08/17/23 07/08/24 (0.083 %) solution for nebulization dyspnea albuterol sulfate 90 mcg/actuation 2 puff inhalation QID PRN SOB 12/18/23 07/08/24 aerosol inhaler furosemide 20 mg tablet 20 mg PO DAILY 02/16/24 07/08/24 acetaminophen 325 mg tablet 650 mg PO Q6H PRN Fever Or Pain 04/03/24 07/08/24 amlodipine 10 mg tablet 10 mg PO DAILY 04/03/24 07/08/24 azithromycin 250 mg tablet 250 mg PO MOWEFR 07/08/24 07/08/24 Previous Rx's ?Medication ?Instructions ?Recorded isosorbide mononitrate 60 mg 60 mg PO DAILY #90 tabs 12/14/23 tablet,extended release 24 hr finasteride 5 mg tablet (Proscar) 5 mg PO DAILY #90 tabs 07/11/24 tamsulosin 0.4 mg capsule (Flomax) 0.4 mg PO BEDTIME #90 caps 07/11/24 Allergies Allergy/AdvReac Type Severity Reaction Status Date / Time ibuprofen Allergy Mild Gastrointestinal Verified 07/25/24 15:19 Upset Review of Systems 2 Review of Systems: Review of systems: General: Patient denies any fever chills recent illness or falls Musculoskeletal: Denies back pain or body aches or other injuries HEENT: denies headache, runny nose, ear pain Respiratory: denies shortness of breath, cough Cardiovascular: no chest pain or palpitations : denies dysuria, frequency Abdomen: no nausea vomiting denies abdominal pain Extremities: no swelling, no pain Skin: no diaphoresis Yes all other systems are reviewed and are negative [facility] Past Medical History Medical History Presence of prosthetic heart valve Aortic stenosis Bacteriuria Congestive heart disease Chronic lung disease Chronic respiratory failure Pre-op chest exam Inferior [place] Pneumonitis Pulmonary nodules BPH (benign prostatic hyperplasia) COPD (chronic obstructive pulmonary disease) Pneumonia HTN (hypertension) Surgical History S/P cardiac catheterization History of carpal tunnel surgery of right wrist Hx of cardiac cath Family History Family History Mother CAD (coronary artery disease) Heart attack Father HTN (hypertension) Brother H/O heart bypass surgery Sister Afib Social History Social History Household Members: Spouse and Family Housing: House Do you presently have visiting nurse or other home services: Yes (1x week) Alcohol intake: former Patient Tobacco Use Status: Former Tobacco user Tobacco use type: Cigarette e-Cigarette/Vaping Use: Never Used Second Hand Smoke Exposure: Yes (family smokes in the house) Advance Directives: Yes Advance Directives on File: Yes Advance Directives Date on File: 03/26/24 Do you have a plan to hurt others: No Plan service: No Current occupational status: retired Physical Exam ED Vital Signs: Vital Signs - 24 hr 07/25/24 15:17 07/25/24 16:49 Temperature 98.0 F Pulse Rate 85 68 Respiratory Rate 16 26 H Blood Pressure 113/61 Pulse Oximetry 94 Oxygen Delivery Method Nasal Cannula BMI result Body Mass Index 28.5 General: Well-appearing well-nourished in no signs of distress HEENT: Normocephalic atraumatic Neck: No signs of JVD, no masses no tenderness or lymphadenopathy Cardiovascular: Regular rate and rhythm Respiratory: Clear to auscultation bilaterally Abdomen: Soft nontender no masses Extremities: Normal pedal pulses no signs of edema Skin: Dry warm no rashes Back: No tenderness full ROM Course Course Course Narrative: patient sent in for chest pain while exercising this morning patient had 2 troponins with no signs of ischemia patient looks well I do feel comfortable discharging the patient home at this time. Medications Administered Discontinued Medications Generic Name Dose Route Start Last Admin Trade Name Yvanq PRN Reason Stop Dose Admin Albuterol Sulfate 12 puff 07/25/24 16:45 07/25/24 16:49 Albuterol Sulfate 90 Mcg 8 Gm Inhaler INHALE 07/25/24 16:46 12 puff ONCE ONE Administration Medical Decision Making Medical Decision Making [facility] Narrative: I will get a complete workup including x-ray labs and 2 troponins and reassess. Differential Diagnosis Differential Diagnoses: The differential diagnosis associated with the presentation includes chest pain ACS dehydration electrolyte abnormality over exertion Admission/Observation Consideration of admission/observation: Escalation of care including admission/observation considered Lab Data [facility] Lab Attestation statement: I reviewed the patient's lab results. 07/25/24 17:19 07/25/24 17:19 Labs: Lab Results 07/25/24 07/25/24 Range/Units 17:19 19:15 WBC 11.2 H (4.8-10.8) X10*3/uL RBC 3.94 L (4.60-5.80) X10*6/uL Hgb 10.8 L (14.0-18.0) g/dl Hct 35.6 L (42.0-52.0) % MCV 90.4 (80.0-98.0) fL MCH 27.4 (27.0-33.0) pg MCHC 30.3 L (31.0-36.0) g/dl RDW 13.8 (11.0-16.0) % Plt Count 337 (160-400) X10*3/uL MPV 8.6 L (9.4-12.4) fL Immature Gran % (Auto) 0.4 (0.0-0.4) % Neut % (Auto) 52.3 (45-73) % Lymph % (Auto) 25.2 (20-40) % [place] % (Auto) 16.9 H (2-11) % Eos % (Auto) 4.4 H (0-4) % Baso % (Auto) 0.8 (0-2) % Lymph # (Auto) 2.8 (1.2-4.9) X10*3/uL [place] # (Auto) 1.9 H (0.1-1.2) X10*3/uL Eos # (Auto) 0.5 H (0.0-0.4) X10*3/uL Baso # (Auto) 0.1 (0.0-0.2) X10*3/uL Abs Immat Gran (auto) 0.05 H (0.00-0.03) X10*3/uL Absolute Neuts (auto) 5.9 (2.0-8.3) x10*3/uL Absolute Nucleated RBC 0.000 (0.0-0.012) X10*3/uL Nucleated RBC % (auto) 0.0 (0.0-0.2) /100WBC Smear Tech's Comments VERIFIED Sodium 144 (135-145) mmol/L Potassium 4.3 D (3.3-5.1) mmol/L Chloride 105 (96-108) mmol/L Carbon Dioxide 28 (22-29) mmol/L Anion Gap 15 (12-20) BUN 19 H (9-16) mg/dL Creatinine 1.12 (0.5-1.4) mg/dL Estim Creat Clear Calc 47.1 Estimated GFR > 60 Random Glucose 135 H (60-115) mg/dL Calcium 8.7 D (8.4-10.2) mg/dL Troponin I High Sens 30.1 27.9 (<3.5-35.0) ng/L Discharge Plan Discharge Clinical Impression: Chest pain Qualifiers: Chest pain type: unspecified Qualified Code(s): R07.9 - Chest pain, unspecified Patient Disposition: Home, Self-Care Instructions: Chest Pain (DC) Additional Instructions: You were seen today with chest pain with exertion you had x-ray and labs done which were all unremarkable. If you have any concerns please return to the ER. Prescriptions: No Action isosorbide mononitrate 60 mg tablet extended release 24 hr 60 mg PO DAILY Qty: 90 3RF atenolol 25 mg Tablet 25 mg PO DAILY albuterol sulfate 2.5 mg /3 mL (0.083 %) solution for nebulization 2.5 mg inhalation Q6H PRN (Reason: for dyspnea) amlodipine 10 mg tablet 10 mg PO DAILY acetaminophen 325 mg tablet 650 mg PO Q6H PRN (Reason: Fever Or Pain) azithromycin 250 mg tablet 250 mg PO MOWEFR Rx Instructions: Take 1 tablet on Thursday/Thursday/Thursday tamsulosin [Flomax] 0.4 mg capsule 0.4 mg PO BEDTIME Qty: 90 0RF finasteride [Proscar] 5 mg tablet 5 mg PO DAILY Qty: 90 0RF albuterol sulfate 90 mcg/actuation HFA aerosol inhaler 2 puff inhalation QID PRN (Reason: SOB) aspirin 81 mg tablet,delayed release (DR/EC) 81 mg PO DAILY pantoprazole [Protonix] 20 mg tablet,delayed release (DR/EC) 20 mg PO DAILY@0630 gabapentin 100 mg capsule 200 mg PO TID oxycodone-acetaminophen 5-325 mg tablet 1 tab PO QID PRN (Reason: Pain (Scale Score 1-3)) fluticasone propionate 50 mcg/actuation spray,suspension 1 spray intranasal DAILY (DME) nebulizers Misc See Rx Instructions .Route Rx Instructions: As directed (DME) Oxygen Home Use Kit See Rx Instructions .Route Rx Instructions: As directed furosemide 20 mg tablet 20 mg PO DAILY Print Language: Yakut
--- NOTE | 2024-07-25 15:37 | ECG_ITS ---
Test Reason : CHEST PAIN Blood Pressure : */* mmHG Vent. Rate : 91 BPM Atrial Rate : 91 BPM P-R Int : 166 ms QRS Dur : 86 ms QT Int : 394 ms P-R-T Axes : 41 65 24 degrees QTcB Int : 484 ms Sinus rhythm with occasional Premature ventricular complexes and Fusion complexes Prolonged QT Abnormal ECG When compared with ECG of 12-Jul-2024 14:59, Fusion complexes are now Present Premature ventricular complexes are now Present QRS voltage has increased QT has lengthened Referred By: Javier Gomez Electronically Signed By: SAMRA GORDON MD
[2024-07-25 16:49] VITALS: PULSE 68; RESP 26; O2SAT 93
[2024-07-25] MEDS: Albuterol Sulfate 90 MCG 8 GM INHALER 12 PUFF INHALE (16:49)
[2024-07-25 17:28] LABS: Basophils Absolute Auto 0.1 X10*3/uL (0.0-0.2); Basophils Percent Auto 0.8 % (0-2); Eosinophils Absolute Auto 0.5 X10*3/uL (0.0-0.4); Eosinophils Percent Auto 4.4 % (0-4); Hematocrit 35.6 % (42.0-52.0); Hemoglobin 10.8 g/dl (14.0-18.0); Imm Gran Abs Auto 0.05 X10*3/uL (0.00-0.03); Imm Gran Pct Auto 0.4 % (0.0-0.4); Lymphocytes Absolute Auto 2.8 X10*3/uL (1.2-4.9); Lymphocytes Percent Auto 25.2 % (20-40); Mean Corpuscular HGB Conc 30.3 g/dl (31.0-36.0); Mean Corpuscular Hemoglobin 27.4 pg (27.0-33.0); Mean Corpuscular Volume 90.4 fL (80.0-98.0); Mean Platelet Volume 8.6 fL (9.4-12.4); Monocytes Absolute Auto 1.9 X10*3/uL (0.1-1.2); Monocytes Percent Auto 16.9 % (2-11); Neutrophils Absolute Auto 5.9 x10*3/uL (2.0-8.3); Neutrophils Percent Auto 52.3 % (45-73); Platelet Count 337 X10*3/uL (160-400); Red Blood Count 3.94 X10*6/uL (4.60-5.80); Red Cell Distribution Width 13.8 % (11.0-16.0); White Blood Count 11.2 X10*3/uL (4.8-10.8)
[2024-07-25 17:37] LABS: Anion Gap 15 (12-20); Blood Urea Nitrogen 19 mg/dL (9-16); Calcium 8.7 mg/dL (8.4-10.2); Carbon Dioxide 28 mmol/L (22-29); Chloride 105 mmol/L (96-108); Creatinine Clr Calc Pharmacy 47.1; Estimated Glomerular Filt Rate > 60; Glucose Random 135 mg/dL (60-115); Potassium 4.3 mmol/L (3.3-5.1); Sodium 144 mmol/L (135-145)
[2024-07-25 17:44] LABS: Troponin-I High Sensitivity 30.1 ng/L (<3.5-35.0)
[2024-07-25 17:54] LABS: MANUAL DIFF FLAG SCAN; SCAN SMEAR FLAG 1
[2024-07-25 17:55] LABS: SLIDE REVIEW VERIFIED
--- OUTSIDE RECORDS SUMMARY | 2024-07-25 18:45 | XMS_ITS | Encounter Summary ---
Author Organization [employer] Address [address] [place] [address] Care Team Providers Care [employer] Utility Worker Name Role Phone Lennie Aviles MD Primary Care Provider + Encounter Details Date Type Department Care Team (Late st Contact Info) Description 06/10/2024 Lab Requisition [facility] - Main Lab [address] [facility] [place] [address] Lennie Aviles MD [address] [phone] Essential (primary) hypertension Social History Tobacco Use [...] AM EST) WBC 13.3(H) 4.8 - 10.8 K/[facility] LAB HEMETOLOGY METHOD 06/13/2024 1:40 PM EST [facility] RBC 4.40(L) 4.50 - 5.50 M/[facility] LAB HEMETOLOGY METHOD 06/13/2024 1:40 PM EST [facility] Hemoglobin 12.7(L) 13.5 - 17.5 g/dL LAB HEMETOLOGY METHOD 06/13/2024 1:40 PM EST [facility] Hematocrit 41.5(L) 42.0 - 54.0 % LAB HEMETOLOGY METHOD 06/13/2024 1:40 PM [facility] MCV 93.7 79.0 - 98.0 FL LAB HEMETOLOGY METHOD 06/13/2024 1:40 PM EST [facility] MCH 28.7 27.0 - 32.0 pcg LAB HEMETOLOGY METHOD 06/13/2024 1:40 PM [facility] MCHC 30.6(L) 32.0 - 37.0 g/dL LAB HEMETOLOGY METHOD 06/13/2024 1:40 PM [facility] RDW 13.5 11.0 - 15.0 % LAB HEMETOLOGY METHOD 06/13/2024 1:40 PM [facility] Platelets 481(H) 130 - 400 K/mcL LAB HEMETOLOGY METHOD 06/13/2024 1:40 PM [facility] MPV 9.9 7.0 - 11.0 FL LAB HEMETOLOGY METHOD 06/13/2024 1:40 PM [facility] NRBC 0.0 <1.0 % LAB HEMETOLOGY METHOD 06/13/2024 1:40 PM [facility] NRBC Absolute 0.00 <0.10 K/mcL LAB HEMETOLOGY METHOD 06/13/2024 1:40 PM [facility] Blood Venous blood specimen / Unknown Venipuncture / Unknown 06/13/2024 10:50 AM EST 06/13/2024 12:26 PM EST us Lennie Aviles MD LAB BLOOD ORDERABLES Fin al Result [facility] [address] [place] [address], [place] [phone] * (ABNORMAL) Comprehensive metabolic panel (06/13/2024 10:50 AM EST) Sodium 139 133 - 145 mmol/L LAB CHEMISTRY METHOD 06/13/2024 2:12 PM [facility] Potassium 4.4 3.5 - 5.5 mmol/L LAB CHEMISTRY METHOD 06/13/2024 2:12 PM [facility] Chloride 105 96 - 110 mmol/L LAB CHEMISTRY METHOD 06/13/2024 2:12 PM [facility] CO2 30 21 - 32 mmol/L LAB CHEMISTRY METHOD 06/13/2024 2:12 PM [facility] Anion Gap 4 3 - 11 LAB CHEMISTRY METHOD 06/13/2024 2:12 PM [facility] Glucose 135(H) 70 - 100 mg/dL LAB CHEMISTRY METHOD 06/13/2024 2:12 PM [facility] BUN 24 5 - 25 mg/dL LAB CHEMISTRY METHOD 06/13/2024 2:12 PM [facility] Creatinine 1.08 0.70 - 1.30 mg/dL LAB CHEMISTRY METHOD 06/13/2024 2:12 PM [facility] eGFR 68 >=60 mL/min/1. 73m2 LAB CHEMISTRY METHOD 06/13/2024 2:12 PM [facility] Comment:Calculation based on the??Chronic Kidney Disease Epidemiology Collaboration (CKD-EPI) equation refit??without adjustment for race. BUN/Creatinine Ratio 22.2 LAB CHEMISTRY METHOD 06/13/2024 2:12 PM [facility] Calcium 9.1 8.5 - 10.5 mg/dL LAB CHEMISTRY METHOD 06/13/2024 2:12 PM [facility] AST (SGOT) 13 10 - 42 unit/L LAB CHEMISTRY METHOD 06/13/2024 2:12 PM [facility] ALT (SGPT) 34 10 - 60 unit/L LAB CHEMISTRY METHOD 06/13/2024 2:12 PM [facility] Alkaline Phosphatase 79 42 - 121 unit/L LAB CHEMISTRY METHOD 06/13/2024 2:12 PM [facility] Total Protein 6.6 6.0 - 8.0 g/dL LAB CHEMISTRY METHOD 06/13/2024 2:12 PM [facility] Albumin 3.2 3.2 - 5.0 g/dL LAB CHEMISTRY METHOD 06/13/2024 2:12 PM [facility] Total Bilirubin 0.3 0.0 - 1.4 mg/dL LAB CHEMISTRY METHOD 06/13/2024 2:12 PM [facility] Blood Venous blood specimen / Unknown Venipuncture / Unknown 06/13/2024 10:50 AM EST 06/13/2024 12:26 PM EST us Lennie Aviles MD LAB BLOOD ORDERABLES Fin al Result [facility] [address] [place] [address], documented in this encounter Visit Diagnoses Diagnosis Essential (primary) hypertension Unspecified essential hypertension documented in this encounter Care Teams [employer] Utility Worker Relationship Specialty Start Date End Date Lennie Aviles MD [address] [place] [phone] PCP - General Family Medicine 06/12/24 documented as of this encounter
--- OUTSIDE RECORDS SUMMARY | 2024-07-25 18:45 | XMS_ITS | Encounter Summary ---
Author Organization [employer] Address [address] [place] [address] Care Team Providers Care Pumper Gager Name Role Phone Elder, Lennie Trammell MD Primary Care Provider + Encounter Details Date Type Department Care Team (Late st Contact Info) Description 07/22/2024 Lab Requisition [facility] - Main Lab [address] [place] [address] Beau Ramachandran MD [address], [place] [phone] Essential (primary) hypertension; Chronic obstructive pulmonary disease, unspecified (CMS/HCC); Benign prostatic hyperplasia with lower urinary tract symptoms Social History Tobacco Use Types Packs/Day Years [...] Associated Diagnosis Comments COMPLETE BLOOD COUNT Routine 07/22/2024 5:37 AM EST Essential (primary) hypertension Chronic obstructive pulmonary disease, unspecified (CMS/HCC) Benign prostatic hyperplasia with lower urinary tract symptoms BASIC METABOLIC PANEL Routine 07/22/2024 5:37 AM EST Essential (primary) hypertension Chronic obstructive pulmonary disease, unspecified (CMS/HCC) Benign prostatic hyperplasia with lower urinary tract symptoms documented in this encounter Results * (ABNORMAL) Basic metabolic panel (07/22/2024 5:37 AM EST) Sodium 141 133 - 145 mmol/L LAB CHEMISTRY METHOD 07/22/2024 11:49 AM EST [facility] Potassium 4.3 3.5 - 5.5 mmol/L LAB CHEMISTRY METHOD 07/22/2024 11:49 AM [facility] Chloride 102 96 - 110 mmol/L LAB CHEMISTRY METHOD 07/22/2024 11:49 AM [facility] CO2 29 21 - 32 mmol/L LAB CHEMISTRY METHOD 07/22/2024 11:49 AM [facility] Anion Gap 10 3 - 11 LAB CHEMISTRY METHOD 07/22/2024 11:49 AM [facility] Glucose 108(H) 70 - 100 mg/dL LAB CHEMISTRY METHOD 07/22/2024 11:49 AM [facility] BUN 19 5 - 25 mg/dL LAB CHEMISTRY METHOD 07/22/2024 11:49 AM [facility] Creatinine 1.13 0.70 - 1.30 mg/dL LAB CHEMISTRY METHOD 07/22/2024 11:49 AM [facility] eGFR 64 >=60 mL/min/1. 73m2 LAB CHEMISTRY METHOD 07/22/2024 11:49 AM [facility] Comment:Calculation based on the??Chronic Kidney Disease Epidemiology Collaboration (CKD-EPI) equation refit??without adjustment for race. BUN/Creatinine Ratio 16.8 LAB CHEMISTRY METHOD 07/22/2024 11:49 AM [facility] Calcium 8.8 8.5 - 10.5 mg/dL LAB CHEMISTRY METHOD 07/22/2024 11:49 AM [facility] Blood Venous blood specimen / Unknown Venipuncture / Unknown 07/22/2024 5:37 AM EST 07/22/2024 10:35 AM EST us Beau Ramachandran MD LAB BLOOD ORDERABLES Final R esult [facility] [address] [place] [address], * (ABNORMAL) Complete blood count (07/22/2024 5:37 AM EST) [facility] WBC 9.1 4.8 - 10.8 K/mcL LAB HEMETOLOGY METHOD 07/22/2024 11:13 AM [facility] RBC 4.00(L) 4.50 - 5.50 M/mcL LAB HEMETOLOGY METHOD 07/22/2024 11:13 AM [facility] Hemoglobin 11.2(L) 13.5 - 17.5 g/dL LAB HEMETOLOGY METHOD 07/22/2024 11:13 AM [facility] Hematocrit 36.8(L) 42.0 - 54.0 % LAB HEMETOLOGY METHOD 07/22/2024 11:13 AM [facility] MCV 91.8 79.0 - 98.0 FL LAB HEMETOLOGY METHOD 07/22/2024 11:13 AM [facility] MCH 27.9 27.0 - 32.0 pcg LAB HEMETOLOGY METHOD 07/22/2024 11:13 AM [facility] MCHC 30.4(L) 32.0 - 37.0 g/dL LAB HEMETOLOGY METHOD 07/22/2024 11:13 AM [facility] RDW 13.7 11.0 - 15.0 % LAB HEMETOLOGY METHOD 07/22/2024 11:13 AM [facility] Platelets 369 130 - 400 K/mcL LAB HEMETOLOGY METHOD 07/22/2024 11:13 AM [facility] MPV 10.0 7.0 - 11.0 FL LAB HEMETOLOGY METHOD 07/22/2024 11:13 AM [facility] NRBC 0.0 <1.0 % LAB HEMETOLOGY METHOD 07/22/2024 11:13 AM [facility] NRBC Absolute 0.00 <0.10 K/mcL LAB HEMETOLOGY METHOD 07/22/2024 11:13 AM EST [facility] Blood Venous blood specimen / Unknown Venipuncture / Unknown 07/22/2024 5:37 AM EST 07/22/2024 10:35 AM EST us Beau Ramachandran MD LAB BLOOD ORDERABLES Final R esult [facility] [address] [place] [address], documented in this encounter Visit Diagnoses Diagnosis Essential (primary) hypertension Unspecified essential hypertension Chronic obstructive pulmonary disease, unspecified (CMS/HCC) Benign prostatic hyperplasia with lower urinary tract symptoms documented in this encounter Care Teams Pumper Gager Relationship Specialty Start Date End Date Lennie Aviles MD [address] [place] [phone] PCP - General Family Medicine 06/12/24 documented as of this encounter
--- OUTSIDE RECORDS SUMMARY | 2024-07-25 18:45 | XMS_ITS | Encounter Summary ---
Author Organization [employer] Address [address] [place] [address] Care Team Providers Care Fitness Services Manager Name Role Phone Elder, Lennie Trammell MD Primary Care Provider + Encounter Details Date Type Department Care Team (Late st Contact Info) Description 07/18/2024 Lab Requisition [facility] - Main Lab [address] [facility] [place] [address] Beau Ramachandran MD [address], [place] [phone] Essential (primary) hypertension; Atherosclerotic heart disease of [place] coronary artery without angina pectoris; Benign prostatic hyperplasia without lower urinary tract symptoms; Acute embolism and thrombosis of unspecified deep veins of unspecified lower extremity (CMS/HCC) Social History Tobacco Use Types Packs/Day Years [...] Associated Diagnosis Comments COMPLETE BLOOD COUNT Routine 07/18/2024 4:53 AM EST Essential (primary) hypertension Atherosclerotic heart disease of [place] coronary artery without angina pectoris Benign prostatic hyperplasia without lower urinary tract symptoms Acute embolism and thrombosis of unspecified deep veins of unspecified lower extremity (CMS/HCC) BASIC METABOLIC PANEL Routine 07/18/2024 4:53 AM EST Essential (primary) hypertension Atherosclerotic heart disease of [place] coronary artery without angina pectoris Benign prostatic hyperplasia without lower urinary tract symptoms Acute embolism and thrombosis of unspecified deep veins of unspecified lower extremity (CMS/HCC) documented in this encounter Results * (ABNORMAL) Basic metabolic panel (07/18/2024 4:53 AM EST) Sodium 141 133 - 145 mmol/L LAB CHEMISTRY METHOD 07/18/2024 2:56 PM [facility] Potassium 4.7 3.5 - 5.5 mmol/L LAB CHEMISTRY METHOD 07/18/2024 2:56 PM [facility] Chloride 103 96 - 110 mmol/L LAB CHEMISTRY METHOD 07/18/2024 2:56 PM [facility] CO2 29 21 - 32 mmol/L LAB CHEMISTRY METHOD 07/18/2024 2:56 PM [facility] Anion Gap 9 3 - 11 LAB CHEMISTRY METHOD 07/18/2024 2:56 PM [facility] Glucose 119(H) 70 - 100 mg/dL LAB CHEMISTRY METHOD 07/18/2024 2:56 PM [facility] BUN 34(H) 5 - 25 mg/dL LAB CHEMISTRY METHOD 07/18/2024 2:56 PM [facility] Creatinine 1.17 0.70 - 1.30 mg/dL LAB CHEMISTRY METHOD 07/18/2024 2:56 PM [facility] eGFR 61 >=60 mL/min/1. 73m2 LAB CHEMISTRY METHOD 07/18/2024 2:56 PM [facility] Comment:Calculation based on the??Chronic Kidney Disease Epidemiology Collaboration (CKD-EPI) equation refit??without adjustment for race. BUN/Creatinine Ratio 29.1 LAB CHEMISTRY METHOD 07/18/2024 2:56 PM [facility] Calcium 9.2 8.5 - 10.5 mg/dL LAB CHEMISTRY METHOD 07/18/2024 2:56 PM [facility] Blood Venous blood specimen / Unknown Venipuncture / Unknown 07/18/2024 4:53 AM EST 07/18/2024 11:18 AM EST us Beau Ramachandran MD LAB BLOOD ORDERABLES Final R esult [facility] [address] [place] [address], * (ABNORMAL) Complete blood count (07/18/2024 4:53 AM EST) [facility] WBC 10.8 4.8 - 10.8 K/mcL LAB HEMETOLOGY METHOD 07/18/2024 2:19 PM EST [facility] RBC 4.20(L) 4.50 - 5.50 M/mcL LAB HEMETOLOGY METHOD 07/18/2024 2:19 PM [facility] Hemoglobin 11.5(L) 13.5 - 17.5 g/dL LAB HEMETOLOGY METHOD 07/18/2024 2:19 PM [facility] Hematocrit 38.2(L) 42.0 - 54.0 % LAB HEMETOLOGY METHOD 07/18/2024 2:19 PM EST [facility] MCV 90.3 79.0 - 98.0 FL LAB HEMETOLOGY METHOD 07/18/2024 2:19 PM EST [facility] MCH 27.2 27.0 - 32.0 pcg LAB HEMETOLOGY METHOD 07/18/2024 2:19 PM [facility] MCHC 30.1(L) 32.0 - 37.0 g/dL LAB HEMETOLOGY METHOD 07/18/2024 2:19 PM EST [facility] RDW 13.6 11.0 - 15.0 % LAB HEMETOLOGY METHOD 07/18/2024 2:19 PM [facility] Platelets 397 130 - 400 K/mcL LAB HEMETOLOGY METHOD 07/18/2024 2:19 PM [facility] MPV 10.8 7.0 - 11.0 FL LAB HEMETOLOGY METHOD 07/18/2024 2:19 PM [facility] NRBC 0.0 <1.0 % LAB HEMETOLOGY METHOD 07/18/2024 2:19 PM EST [facility] NRBC Absolute 0.00 <0.10 K/mcL LAB HEMETOLOGY METHOD 07/18/2024 2:19 PM EST [facility] Blood Venous blood specimen / Unknown Venipuncture / Unknown 07/18/2024 4:53 AM EST 07/18/2024 11:18 AM EST us Beau Ramachandran MD LAB BLOOD ORDERABLES Final R esult [facility] [address] [place] [address], documented in this encounter Visit Diagnoses Diagnosis Essential (primary) hypertension Unspecified essential hypertension Atherosclerotic heart disease of [place] coronary artery without angina pectoris Benign prostatic hyperplasia without lower urinary tract symptoms Acute embolism and thrombosis of unspecified deep veins of unspecified lower extremity (CMS/HCC) documented in this encounter Care Teams Fitness Services Manager Relationship Specialty Start Date End Date Lennie Aviles MD [address] [place] [phone] PCP - General Family Medicine 06/12/24 documented as of this encounter
--- OUTSIDE RECORDS SUMMARY | 2024-07-25 18:45 | XMS_ITS | Encounter Summary ---
Author Organization [employer] [facility] Address [address] [place] [address] Care Team Providers Care Lathing Supervisor Name Role Phone Lennie Aviles MD Primary Care Provider + Encounter Details Date Type Department Care Team (Late st Contact Info) Description 06/11/2024 Lab Requisition [facility] - Main Lab [address] [facility] [place] [address] Lennie Aviles MD [address] [phone] Frequency of micturition Social History Tobacco Use [...] reflex microscopic (06/11/2024 11:00 AM EST) Specific [place] Urine 1.015 1.003 - 1.030 LAB URINALYSIS - AUTOMATED METHOD 06/11/2024 12:55 PM EST [facility] pH, Urine 6.0 5.0 - 8.0 pH LAB URINALYSIS - AUTOMATED METHOD 06/11/2024 12:55 PM [facility] Leukocytes, Urine Trace(A) Negative LAB URINALYSIS - AUTOMATED METHOD 06/11/2024 12:55 PM [facility] Nitrite, Urine Negative Negative LAB URINALYSIS - AUTOMATED METHOD 06/11/2024 12:55 PM [facility] Protein, Urine 30(A) <=Trace mg/dL LAB URINALYSIS - AUTOMATED METHOD 06/11/2024 12:55 PM [facility] Glucose, Urine Negative Negative mg/dL LAB URINALYSIS - AUTOMATED METHOD 06/11/2024 12:55 PM [facility] Ketones, Urine Negative Negative mg/dL LAB URINALYSIS - AUTOMATED METHOD 06/11/2024 12:55 PM [facility] Urobilinogen , Urine 0.2 0.2 - 1.0 mg/dL LAB URINALYSIS - AUTOMATED METHOD 06/11/2024 12:55 PM [facility] Bilirubin, Urine Negative Negative LAB URINALYSIS - AUTOMATED METHOD 06/11/2024 12:55 PM [facility] Blood, Urine Large(A) Negative LAB URINALYSIS - AUTOMATED METHOD 06/11/2024 12:55 PM [facility] RBC, Urine >4,000(H) 0 - 4 /HPF LAB URINALYSIS - AUTOMATED METHOD 06/11/2024 12:55 PM [facility] WBC, Urine 44.7(H) 0 - 4 /HPF LAB URINALYSIS - AUTOMATED METHOD 06/11/2024 12:55 PM [facility] Squamous Epithelial, Urine 0 0 - 60 /LPF LAB URINALYSIS - AUTOMATED METHOD 06/11/2024 12:55 PM [facility] Bacteria, Urine Few(A) Negative /HPF LAB URINALYSIS - AUTOMATED METHOD 06/11/2024 12:55 PM [facility] Hyaline Casts, Urine 1.4 0 - 3 /LPF LAB URINALYSIS - AUTOMATED METHOD 06/11/2024 12:55 PM EST [facility] Urine Urine specimen obtained by clean catch procedure / Unknown 06/11/2024 11:00 AM EST 06/11/2024 11:58 AM EST Lennie Aviles MD LAB URINE ORDERABLES Fin al Result Performing Organization Address [facility]/ZIP Co de Phone Number [facility] [address] [place] [address], [place] [phone] * Culture urine (06/11/2024 11:00 AM EST) Culture, Urine 10,000-49,000 CFU/mL Mixed bacterial morphotypes present suggestive of possible contamination during collection. Suggest appropriate recollection if clinically indicated. 06/13/2024 10:49 AM EST [facility] Urine Urine specimen obtained by clean catch procedure / Unknown 06/11/2024 11:00 AM EST 06/11/2024 11:58 AM EST Lennie Avilse MD LAB MICROBIOLOGY - GENER AL ORDERABLES Final Result Performing Organization Address [facility] Co de Phone Number [facility] [address] [place] [address], [place] [phone] documented in this encounter Visit Diagnoses Diagnosis Frequency of micturition Urinary frequency documented in this encounter Care Teams Lathing Supervisor Relationship Specialty Start Date End Date Lennie Aviles MD [address] [place] [phone] PCP - General Family Medicine 06/12/24 documented as of this encounter
--- OUTSIDE RECORDS SUMMARY | 2024-07-25 18:45 | XMS_ITS | Encounter Summary ---
Author Organization [employer] [facility] Address [address] [place] [address] Care Team Providers Care Barbed Wire Machine Operator Name Role Phone Lennie Aviles MD Primary Care Provider + Encounter Details Date Type Department Care Team (Late st Contact Info) Description 06/24/2024 Lab Requisition [facility] - Main Lab 299 [facility] [place] [address] Lennie Aviles MD [address] [phone] Essential (primary) hypertension Social History Tobacco Use [...] LAB CHEMISTRY METHOD 06/27/2024 1:32 PM EST [facility] Potassium 3.7 3.5 - 5.5 mmol/L LAB CHEMISTRY METHOD 06/27/2024 1:32 PM EST [facility] Chloride 105 96 - 110 mmol/L LAB CHEMISTRY METHOD 06/27/2024 1:32 PM [facility] CO2 28 21 - 32 mmol/L LAB CHEMISTRY METHOD 06/27/2024 1:32 PM [facility] Anion Gap 9 3 - 11 LAB CHEMISTRY METHOD 06/27/2024 1:32 PM [facility] Glucose 140(H) 70 - 100 mg/dL LAB CHEMISTRY METHOD 06/27/2024 1:32 PM [facility] BUN 16 5 - 25 mg/dL LAB CHEMISTRY METHOD 06/27/2024 1:32 PM [facility] Creatinine 0.94 0.70 - 1.30 mg/dL LAB CHEMISTRY METHOD 06/27/2024 1:32 PM [facility] eGFR 80 >=60 mL/min/1. 73m2 LAB CHEMISTRY METHOD 06/27/2024 1:32 PM [facility] Comment:Calculation based on the??Chronic Kidney Disease Epidemiology Collaboration (CKD-EPI) equation refit??without adjustment for race. BUN/Creatinine Ratio 17.0 LAB CHEMISTRY METHOD 06/27/2024 1:32 PM [facility] Calcium 9.1 8.5 - 10.5 mg/dL LAB CHEMISTRY METHOD 06/27/2024 1:32 PM [facility] AST (SGOT) 10 10 - 42 unit/L LAB CHEMISTRY METHOD 06/27/2024 1:32 PM [facility] ALT (SGPT) 17 10 - 60 unit/L LAB CHEMISTRY METHOD 06/27/2024 1:32 PM [facility] Alkaline Phosphatase 69 42 - 121 unit/L LAB CHEMISTRY METHOD 06/27/2024 1:32 PM [facility] Total Protein 6.2 6.0 - 8.0 g/dL LAB CHEMISTRY METHOD 06/27/2024 1:32 PM [facility] Albumin 2.8(L) 3.2 - 5.0 g/dL LAB CHEMISTRY METHOD 06/27/2024 1:32 PM [facility] Total Bilirubin 0.3 0.0 - 1.4 mg/dL LAB CHEMISTRY METHOD 06/27/2024 1:32 PM [facility] Blood Venous blood specimen / Unknown Venipuncture / Unknown 06/27/2024 9:15 AM EST 06/27/2024 10:57 AM EST us Lennie Aviles MD LAB BLOOD ORDERABLES Fin al Result [facility] [address] [place] [address], * (ABNORMAL) Complete blood count (06/27/2024 9:15 AM EST) WBC 7.2 4.8 - 10.8 K/mcL LAB HEMETOLOGY METHOD 06/27/2024 12:37 PM [facility] RBC 4.40(L) 4.50 - 5.50 M/mcL LAB HEMETOLOGY METHOD 06/27/2024 12:37 PM [facility] Hemoglobin 12.4(L) 13.5 - 17.5 g/dL LAB HEMETOLOGY METHOD 06/27/2024 12:37 PM [facility] Hematocrit 40.2(L) 42.0 - 54.0 % LAB HEMETOLOGY METHOD 06/27/2024 12:37 PM [facility] MCV 91.2 79.0 - 98.0 FL LAB HEMETOLOGY METHOD 06/27/2024 12:37 PM [facility] MCH 28.1 27.0 - 32.0 pcg LAB HEMETOLOGY METHOD 06/27/2024 12:37 PM [facility] MCHC 30.8(L) 32.0 - 37.0 g/dL LAB HEMETOLOGY METHOD 06/27/2024 12:37 PM [facility] RDW 13.2 11.0 - 15.0 % LAB HEMETOLOGY METHOD 06/27/2024 12:37 PM EST [facility] Platelets 207 130 - 400 K/mcL LAB HEMETOLOGY METHOD 06/27/2024 12:37 PM [facility] MPV 9.5 7.0 - 11.0 FL LAB HEMETOLOGY METHOD 06/27/2024 12:37 PM EST [facility] NRBC 0.0 <1.0 % LAB HEMETOLOGY METHOD 06/27/2024 12:37 PM [facility] NRBC Absolute 0.00 <0.10 K/mcL LAB HEMETOLOGY METHOD 06/27/2024 12:37 PM [facility] Blood Venous blood specimen / Unknown 06/27/2024 9:15 AM EST 06/27/2024 10:59 AM EST us Lennie Aviles MD LAB BLOOD ORDERABLES Fin al Result [facility] [address] [place] [address], documented in this encounter Visit Diagnoses Diagnosis Essential (primary) hypertension Unspecified essential hypertension documented in this encounter Care Teams Barbed Wire Machine Operator Relationship Specialty Start Date End Date Lennie Aviles MD [address] [place] [phone] PCP - General Family Medicine 06/12/24 documented as of this encounter
--- OUTSIDE RECORDS SUMMARY | 2024-07-25 18:45 | XMS_ITS | Encounter Summary ---
Author Organization [employer] [facility] Address [address] [place] [address] Care Team Providers Care Jitterbug Operator Name Role Phone Lennie Aviles MD Primary Care Provider + Encounter Details Date Type Department Care Team (Late st Contact Info) Description 06/18/2024 Lab Requisition [facility] - Main Lab [address] [facility] [place] [address] Lennie Aviles MD [address] [phone] Essential (primary) hypertension Social History Tobacco Use [...] LAB CHEMISTRY METHOD 06/20/2024 2:09 PM EST [facility] Potassium 3.8 3.5 - 5.5 mmol/L LAB CHEMISTRY METHOD 06/20/2024 2:09 PM EST [facility] Chloride 104 96 - 110 mmol/L LAB CHEMISTRY METHOD 06/20/2024 2:09 PM [facility] CO2 30 21 - 32 mmol/L LAB CHEMISTRY METHOD 06/20/2024 2:09 PM [facility] Anion Gap 5 3 - 11 LAB CHEMISTRY METHOD 06/20/2024 2:09 PM [facility] Glucose 132(H) 70 - 100 mg/dL LAB CHEMISTRY METHOD 06/20/2024 2:09 PM [facility] BUN 14 5 - 25 mg/dL LAB CHEMISTRY METHOD 06/20/2024 2:09 PM [facility] Creatinine 0.90 0.70 - 1.30 mg/dL LAB CHEMISTRY METHOD 06/20/2024 2:09 PM [facility] eGFR 84 >=60 mL/min/1. 73m2 LAB CHEMISTRY METHOD 06/20/2024 2:09 PM [facility] Comment:Calculation based on the??Chronic Kidney Disease Epidemiology Collaboration (CKD-EPI) equation refit??without adjustment for race. BUN/Creatinine Ratio 15.6 LAB CHEMISTRY METHOD 06/20/2024 2:09 PM [facility] Calcium 8.4(L) 8.5 - 10.5 mg/dL LAB CHEMISTRY METHOD 06/20/2024 2:09 PM [facility] AST (SGOT) 13 10 - 42 unit/L LAB CHEMISTRY METHOD 06/20/2024 2:09 PM [facility] ALT (SGPT) 19 10 - 60 unit/L LAB CHEMISTRY METHOD 06/20/2024 2:09 PM [facility] Alkaline Phosphatase 68 42 - 121 unit/L LAB CHEMISTRY METHOD 06/20/2024 2:09 PM [facility] Total Protein 5.7(L) 6.0 - 8.0 g/dL LAB CHEMISTRY METHOD 06/20/2024 2:09 PM [facility] Albumin 2.7(L) 3.2 - 5.0 g/dL LAB CHEMISTRY METHOD 06/20/2024 2:09 PM [facility] Total Bilirubin 0.4 0.0 - 1.4 mg/dL LAB CHEMISTRY METHOD 06/20/2024 2:09 PM [facility] Blood Venous blood specimen / Unknown Venipuncture / Unknown 06/20/2024 7:34 AM EST 06/20/2024 12:04 PM EST us Lennie Aviles MD LAB BLOOD ORDERABLES Fin al Result [facility] [address] [place] [address], * (ABNORMAL) Complete blood count (06/20/2024 7:34 AM EST) WBC 9.2 4.8 - 10.8 K/mcL LAB HEMETOLOGY METHOD 06/20/2024 12:59 PM [facility] RBC 4.10(L) 4.50 - 5.50 M/mcL LAB HEMETOLOGY METHOD 06/20/2024 12:59 PM [facility] Hemoglobin 11.6(L) 13.5 - 17.5 g/dL LAB HEMETOLOGY METHOD 06/20/2024 12:59 PM [facility] Hematocrit 38.0(L) 42.0 - 54.0 % LAB HEMETOLOGY METHOD 06/20/2024 12:59 PM [facility] MCV 92.2 79.0 - 98.0 FL LAB HEMETOLOGY METHOD 06/20/2024 12:59 PM [facility] MCH 28.2 27.0 - 32.0 pcg LAB HEMETOLOGY METHOD 06/20/2024 12:59 PM [facility] MCHC 30.5(L) 32.0 - 37.0 g/dL LAB HEMETOLOGY METHOD 06/20/2024 12:59 PM [facility] RDW 13.8 11.0 - 15.0 % LAB HEMETOLOGY METHOD 06/20/2024 12:59 PM EST [facility] Platelets 277 130 - 400 K/mcL LAB HEMETOLOGY METHOD 06/20/2024 12:59 PM EST [facility] MPV 10.4 7.0 - 11.0 FL LAB HEMETOLOGY METHOD 06/20/2024 12:59 PM EST [facility] NRBC 0.0 <1.0 % LAB HEMETOLOGY METHOD 06/20/2024 12:59 PM [facility] NRBC Absolute 0.00 <0.10 K/mcL LAB HEMETOLOGY METHOD 06/20/2024 12:59 PM [facility] Blood Venous blood specimen / Unknown Venipuncture / Unknown 06/20/2024 7:34 AM EST 06/20/2024 12:04 PM EST us Lennie Aviles MD LAB BLOOD ORDERABLES Fin al Result [facility] [address] [place] [address], documented in this encounter Visit Diagnoses Diagnosis Essential (primary) hypertension Unspecified essential hypertension documented in this encounter Care Teams Jitterbug Operator Relationship Specialty Start Date End Date Lennie Aviles MD [address] [place] [phone] PCP - General Family Medicine 06/12/24 documented as of this encounter
--- OUTSIDE RECORDS SUMMARY | 2024-07-25 18:45 | XMS_ITS | Encounter Summary ---
Author Organization [employer] [facility] Address [address] [place] [address] Care Team Providers Care Pig Caster Name Role Phone Lennie Aviles MD Primary Care Provider + Encounter Details Date Type Department Care Team (Late st Contact Info) Description 06/03/[address] [facility] - Main Lab [address] [facility] [place] [place] [address] Lennie Aviles MD [address] [phone] Essential (primary) hypertension Social History Tobacco Use [...] LAB CHEMISTRY METHOD 06/06/2024 10:51 AM EST [facility] Potassium 4.3 3.5 - 5.5 mmol/L LAB CHEMISTRY METHOD 06/06/2024 10:51 AM EST [facility] Chloride 100 96 - 110 mmol/L LAB CHEMISTRY METHOD 06/06/2024 10:[address] [facility] CO2 31 21 - 32 mmol/L LAB CHEMISTRY METHOD 06/06/2024 10:[address] [facility] Anion Gap 8 3 - 11 LAB CHEMISTRY METHOD 06/06/2024 10:[address] [facility] Glucose 153(H) 70 - 100 mg/dL LAB CHEMISTRY METHOD 06/06/2024 10:[address] [facility] BUN 20 5 - 25 mg/dL LAB CHEMISTRY METHOD 06/06/2024 10:[address] [facility] Creatinine 0.98 0.70 - 1.30 mg/dL LAB CHEMISTRY METHOD 06/06/2024 10:[address] [facility] eGFR 76 >=60 mL/min/1. 73m2 LAB CHEMISTRY METHOD 06/06/2024 10:[address] [facility] Comment:Calculation based on the??Chronic Kidney Disease Epidemiology Collaboration (CKD-EPI) equation refit??without adjustment for race. BUN/Creatinine Ratio 20.4 LAB CHEMISTRY METHOD 06/06/2024 10:[address] [facility] Calcium 8.6 8.5 - 10.5 mg/dL LAB CHEMISTRY METHOD 06/06/2024 10:[address] [facility] AST (SGOT) 37 10 - 42 unit/L LAB CHEMISTRY METHOD 06/06/2024 10:[address] [facility] ALT (SGPT) 41 10 - 60 unit/L LAB CHEMISTRY METHOD 06/06/2024 10:[address] [facility] Alkaline Phosphatase 71 42 - 121 unit/L LAB CHEMISTRY METHOD 06/06/2024 10:[address] [facility] Total Protein 6.4 6.0 - 8.0 g/dL LAB CHEMISTRY METHOD 06/06/2024 10:[address] [facility] Albumin 2.8(L) 3.2 - 5.0 g/dL LAB CHEMISTRY METHOD 06/06/2024 10:[address] [facility] Total Bilirubin 0.3 0.0 - 1.4 mg/dL LAB CHEMISTRY METHOD 06/06/2024 10:[address] [facility] Blood Venous blood specimen / Unknown Venipuncture / Unknown 06/06/2024 7:36 AM EST 06/06/2024 9:38 AM EST us Lennie Aviles MD LAB BLOOD ORDERABLES Fin al Result [facility] [address] [place] [address], * (ABNORMAL) Complete blood count (06/06/2024 7:36 AM EST) WBC 12.6(H) 4.8 - 10.8 K/mcL LAB HEMETOLOGY METHOD 06/06/2024 10:[address] [facility] RBC 4.20(L) 4.50 - 5.50 M/mcL LAB HEMETOLOGY METHOD 06/06/2024 10:[address] [facility] Hemoglobin 12.0(L) 13.5 - 17.5 g/dL LAB HEMETOLOGY METHOD 06/06/2024 10:[address] [facility] Hematocrit 38.3(L) 42.0 - 54.0 % LAB HEMETOLOGY METHOD 06/06/2024 10:[address] [facility] MCV 90.3 79.0 - 98.0 FL LAB HEMETOLOGY METHOD 06/06/2024 10:[address] [facility] MCH 28.3 27.0 - 32.0 pcg LAB HEMETOLOGY METHOD 06/06/2024 10:[address] [facility] MCHC 31.3(L) 32.0 - 37.0 g/dL LAB HEMETOLOGY METHOD 06/06/2024 10:[address] [facility] RDW 13.1 11.0 - 15.0 % LAB HEMETOLOGY METHOD 06/06/2024 10:28 AM EST [facility] Platelets 330 130 - 400 K/mcL LAB HEMETOLOGY METHOD 06/06/2024 10:28 AM EST [facility] MPV 10.5 7.0 - 11.0 FL LAB HEMETOLOGY METHOD 06/06/2024 10:28 AM EST [facility] NRBC 0.0 <1.0 % LAB HEMETOLOGY METHOD 06/06/2024 10:28 AM EST [facility] NRBC Absolute 0.00 <0.10 K/mcL LAB HEMETOLOGY METHOD 06/06/2024 10:28 AM EST [facility] Blood Venous blood specimen / Unknown Venipuncture / Unknown 06/06/2024 7:36 AM EST 06/06/2024 9:37 AM EST us Lennie Aviles MD LAB BLOOD ORDERABLES Fin al Result [facility] [address] [place] [address], documented in this encounter Visit Diagnoses Diagnosis Essential (primary) hypertension Unspecified essential hypertension documented in this encounter Care Teams Pig Caster Relationship Specialty Start Date End Date Lennie Aviles MD [address] [place] [id number] PCP - General Family Medicine 06/12/24 documented as of this encounter
--- OUTSIDE RECORDS SUMMARY | 2024-07-25 18:45 | XMS_ITS | Encounter Summary ---
Author Organization [employer] Address [address] [place] [address] Care Team Providers Care Script Coordinator Name Role Phone Lennie Aviles MD Primary Care Provider + Encounter Details Date Type Department Care Team (Late st Contact Info) Description 07/19/2024 Lab Requisition [facility] - Main Lab 299 [facility] [place] [address] Beau Ramachandran MD [address] [place] [address] Chronic obstructive pulmonary disease, unspecified (CMS/HCC); Essential (primary) hypertension; Benign prostatic hyperplasia with lower urinary tract [...] as of this encounter Visit Diagnoses Diagnosis Chronic obstructive pulmonary disease, unspecified (CMS/HCC) Essential (primary) hypertension Unspecified essential hypertension Benign prostatic hyperplasia with lower urinary tract symptoms documented in this encounter Care Teams Script Coordinator Relationship Specialty Start Date End Date Lennie Aviles MD [address] [address] PCP - General Family Medicine 06/12/24 documented as of this encounter
--- OUTSIDE RECORDS SUMMARY | 2024-07-25 18:45 | XMS_ITS | Encounter Summary ---
Author Organization [employer] Address [address] [place] [address] Care Team Providers Care Court Usher Name Role Phone Lennie Aviles MD Primary Care Provider + Encounter Details Date Type Department Care Team (Late st Contact Info) Description 07/03/2024 Lab Requisition [facility] - Main Lab 299 [facility] [place] [address] Lennie Aviles MD [address] [address] Essential (primary) hypertension Social History Tobacco Use [...] hypertension documented in this encounter Care Teams Court Usher Relationship Specialty Start Date End Date Lennie Aviles MD [address] [phone] PCP - General Family Medicine 06/12/24 documented as of this encounter
--- OUTSIDE RECORDS SUMMARY | 2024-07-25 18:45 | XMS_ITS | Clinical Summary ---
Author Organization [address] Address [address] [place] [address] Phone Care Team Providers Care Car Head Liner Installer Name Role Phone Lennie Aviles MD Primary Care Provider + Encounters Date Type Department Care Team Description 07/22/[address] [facility] [address] [place] [address] Beau Ramachandran MD Essential (primary) hypertension; Chronic obstructive pulmonary disease, unspecified (CMS/HCC); Benign prostatic hyperplasia with lower urinary tract symptoms 07/19/[address] [facility] [address] [place] [address] Beau Ramachandran MD Chronic obstructive pulmonary disease, unspecified (CMS/HCC); Essential (primary) hypertension; Benign prostatic hyperplasia with lower urinary tract symptoms 07/18/[address] [facility] [address] [place] [address] Beau Ramachandran MD Essential (primary) hypertension; Atherosclerotic heart disease of [place] coronary artery without angina pectoris; Benign prostatic hyperplasia without lower urinary tract symptoms; Acute embolism and thrombosis of unspecified deep veins of unspecified lower extremity (CMS/HCC) 07/03/[address] [facility] [address] [place] [address] Lennie Aviles MD Essential (primary) hypertension 06/24/[address] [facility] [address] [place] [address] Lennie Aviles MD Essential (primary) hypertension 06/18/[address] [facility] [address] [place] [phone] Lennie Aviles MD Essential (primary) hypertension 06/11/2024 Lab Requisition [facility] - Main Lab [address] [place] [phone] Lennie Aviles MD Frequency of micturition 06/10/2024 Lab Requisition [facility] - Main Lab [address] [place] [phone] Lennie Aviles MD Essential (primary) hypertension 06/03/2024 Lab Requisition [facility] - Main Lab [address] [place] [phone] Lennie Aviles MD Essential (primary) hypertension from [...] - 1-dose 75+ series) 2015 COVID-19 Vaccine ( - season) 2024 Influenza Vaccine (#1) 2024 Cholesterol Screening (Lipid Panel) 06/03/2024 Depression Screening 06/03/2024 Falls Risk Assessment 06/03/2024 Medicare Annual Wellness Visit 06/03/2024 Social Influencers of Health Screening 06/03/2024 Hypertension/CHF/CAD Annual BMP Blood Test 07/22/2025 07/22/2024, 07/18/2024, 06/27/2024, Additional history exists HIB Vaccines Aged Out [...] Procedure Name Priority Date/Time Associated Diagnosis Comments BASIC METABOLIC PANEL Routine 07/22/2024 5:37 AM EST Essential (primary) hypertension Chronic obstructive pulmonary disease, unspecified (CMS/HCC) Benign prostatic hyperplasia with lower urinary tract symptoms COMPLETE BLOOD COUNT Routine 07/22/2024 5:37 AM EST Essential (primary) hypertension Chronic obstructive pulmonary disease, unspecified (CMS/HCC) Benign prostatic hyperplasia with lower urinary tract symptoms BASIC METABOLIC PANEL Routine 07/18/2024 4:53 AM EST Essential (primary) hypertension Atherosclerotic heart disease of [place] coronary artery without angina pectoris Benign prostatic hyperplasia without lower urinary tract symptoms Acute embolism and thrombosis of unspecified deep veins of unspecified lower extremity (CMS/HCC) COMPLETE BLOOD COUNT Routine 07/18/2024 4:53 AM EST Essential (primary) hypertension Atherosclerotic heart disease of [place] coronary artery without angina pectoris Benign prostatic hyperplasia without lower urinary tract symptoms Acute embolism and thrombosis of unspecified deep veins of unspecified lower extremity (CMS/HCC) COMPREHENSIVE METABOLIC PANEL Routine 06/27/2024 9:15 AM [...] Months Results * (ABNORMAL) Complete blood count (07/22/2024 5:37 AM EST) Only the most recent of6 resultswithin the time period is included. Pathologist [facility] WBC 9.1 4.8 - 10.8 K/mcL LAB HEMETOLOGY METHOD 07/22/2024 11:13 AM [facility] RBC 4.00(L) 4.50 - 5.50 M/mcL LAB HEMETOLOGY METHOD 07/22/2024 11:13 AM [facility] Hemoglobin 11.2(L) 13.5 - 17.5 g/dL LAB HEMETOLOGY METHOD 07/22/2024 11:13 AM [facility] Hematocrit 36.8(L) 42.0 - 54.0 % LAB HEMETOLOGY METHOD 07/22/2024 11:13 AM [facility] MCV 91.8 79.0 - 98.0 FL LAB HEMETOLOGY METHOD 07/22/2024 11:13 AM EST [facility] MCH 27.9 27.0 - 32.0 pcg LAB HEMETOLOGY METHOD 07/22/2024 11:13 AM [facility] MCHC 30.4(L) 32.0 - 37.0 g/dL LAB HEMETOLOGY METHOD 07/22/2024 11:13 AM EST [facility] RDW 13.7 11.0 - 15.0 % LAB HEMETOLOGY METHOD 07/22/2024 11:13 AM [facility] Platelets 369 130 - 400 K/mcL LAB HEMETOLOGY METHOD 07/22/2024 11:13 AM [facility] MPV 10.0 7.0 - 11.0 FL LAB HEMETOLOGY METHOD 07/22/2024 11:13 AM EST [facility] NRBC 0.0 <1.0 % LAB HEMETOLOGY METHOD 07/22/2024 11:13 AM [facility] NRBC Absolute 0.00 <0.10 K/mcL LAB HEMETOLOGY METHOD 07/22/2024 11:13 AM [facility] Blood Venous blood specimen / Unknown Venipuncture / Unknown 07/22/2024 5:37 AM EST 07/22/2024 10:35 AM EST us Beau Ramachandran MD LAB BLOOD ORDERABLES Final R esult [facility] [address] [place] [address], * (ABNORMAL) Basic metabolic panel (07/22/2024 5:37 AM EST) Only the most recent of2 resultswithin the time period is included. Sodium 141 133 - 145 mmol/L LAB CHEMISTRY METHOD 07/22/2024 11:49 AM [facility] Potassium 4.3 3.5 - 5.5 mmol/L LAB CHEMISTRY METHOD 07/22/2024 11:49 AM [facility] Chloride 102 96 - 110 mmol/L LAB CHEMISTRY METHOD 07/22/2024 11:49 AM [facility] CO2 29 21 - 32 mmol/L LAB CHEMISTRY METHOD 07/22/2024 11:49 AM [facility] Anion Gap 10 3 - 11 LAB CHEMISTRY METHOD 07/22/2024 11:49 AM [facility] Glucose 108(H) 70 - 100 mg/dL LAB CHEMISTRY METHOD 07/22/2024 11:49 AM [facility] BUN 19 5 - 25 mg/dL LAB CHEMISTRY METHOD 07/22/2024 11:49 AM [facility] Creatinine 1.13 0.70 - 1.30 mg/dL LAB CHEMISTRY METHOD 07/22/2024 11:49 AM [facility] eGFR 64 >=60 mL/min/1. 73m2 LAB CHEMISTRY METHOD 07/22/2024 11:49 AM [facility] Comment:Calculation based on the??Chronic Kidney Disease Epidemiology Collaboration (CKD-EPI) equation refit??without adjustment for race. BUN/Creatinine Ratio 16.8 LAB CHEMISTRY METHOD 07/22/2024 11:49 AM [facility] Calcium 8.8 8.5 - 10.5 mg/dL LAB CHEMISTRY METHOD 07/22/2024 11:49 AM [facility] Blood Venous blood specimen / Unknown Venipuncture / Unknown 07/22/2024 5:37 AM EST 07/22/2024 10:35 AM EST us Beau Ramachandran MD LAB BLOOD ORDERABLES Final R esult [facility] [address] [place] [address], * (ABNORMAL) Comprehensive metabolic panel (06/27/2024 9:15 AM EST) Only the most recent of4 resultswithin the time period is included. Sodium 142 133 - 145 mmol/L LAB CHEMISTRY METHOD 06/27/2024 1:32 PM [facility] Potassium 3.7 3.5 - 5.5 mmol/L LAB CHEMISTRY METHOD 06/27/2024 1:32 PM [facility] Chloride 105 96 - 110 mmol/L LAB CHEMISTRY METHOD 06/27/2024 1:32 PM [facility] CO2 28 21 - 32 mmol/L LAB CHEMISTRY METHOD 06/27/2024 1:32 PM [facility] Anion Gap 9 3 - 11 LAB CHEMISTRY METHOD 06/27/2024 1:32 PM [facility] Glucose 140(H) 70 - 100 mg/dL LAB CHEMISTRY METHOD 06/27/2024 1:32 PM [facility] BUN 16 5 - 25 mg/dL LAB CHEMISTRY METHOD 06/27/2024 1:32 PM [facility] Creatinine 0.94 0.70 - 1.30 mg/dL LAB CHEMISTRY METHOD 06/27/2024 1:32 PM [facility] eGFR 80 >=60 mL/min/1. 73m2 LAB CHEMISTRY METHOD 06/27/2024 1:32 PM [facility] Comment:Calculation based on the??Chronic Kidney Disease Epidemiology Collaboration (CKD-EPI) equation refit??without adjustment for race. BUN/Creatinine Ratio 17.0 LAB CHEMISTRY METHOD 06/27/2024 1:32 PM [facility] Calcium 9.1 8.5 - 10.5 mg/dL LAB CHEMISTRY METHOD 06/27/2024 1:32 PM [facility] AST (SGOT) 10 10 - 42 unit/L LAB CHEMISTRY METHOD 06/27/2024 1:32 PM [facility] ALT (SGPT) 17 10 - 60 unit/L LAB CHEMISTRY METHOD 06/27/2024 1:32 PM [facility] Alkaline Phosphatase 69 42 - 121 unit/L LAB CHEMISTRY METHOD 06/27/2024 1:32 PM [facility] Total Protein 6.2 6.0 - 8.0 g/dL LAB CHEMISTRY METHOD 06/27/2024 1:32 PM [facility] Albumin 2.8(L) 3.2 - 5.0 g/dL LAB CHEMISTRY METHOD 06/27/2024 1:32 PM [facility] Total Bilirubin 0.3 0.0 - 1.4 mg/dL LAB CHEMISTRY METHOD 06/27/2024 1:32 PM [facility] Blood Venous blood specimen / Unknown Venipuncture / Unknown 06/27/2024 9:15 AM EST 06/27/2024 10:57 AM EST us Lennie Aviles MD LAB BLOOD ORDERABLES Fin al Result [facility] [address] [place] [address], * (ABNORMAL) Urinalysis with reflex microscopic (06/11/2024 11:00 AM EST) Specific [place] Urine 1.015 1.003 - 1.030 LAB URINALYSIS - AUTOMATED METHOD 06/11/2024 12:55 PM [facility] pH, Urine 6.0 5.0 - 8.0 pH LAB URINALYSIS - AUTOMATED METHOD 06/11/2024 12:55 PM [facility] Leukocytes, Urine Trace(A) Negative LAB URINALYSIS - AUTOMATED METHOD 06/11/2024 12:55 PM [facility] Nitrite, Urine Negative Negative LAB URINALYSIS - AUTOMATED METHOD 06/11/2024 12:55 PM [facility] Protein, Urine 30(A) <=Trace mg/dL LAB URINALYSIS - AUTOMATED METHOD 06/11/2024 12:55 PM [facility] Glucose, Urine Negative Negative mg/dL LAB URINALYSIS - AUTOMATED METHOD 06/11/2024 12:55 PM [facility] Ketones, Urine Negative Negative mg/dL LAB URINALYSIS - AUTOMATED METHOD 06/11/2024 12:55 PM [facility] Urobilinogen , Urine 0.2 0.2 - 1.0 mg/dL LAB URINALYSIS - AUTOMATED METHOD 06/11/2024 12:55 PM [facility] Bilirubin, Urine Negative Negative LAB URINALYSIS - AUTOMATED METHOD 06/11/2024 12:55 PM [facility] Blood, Urine Large(A) Negative LAB URINALYSIS - AUTOMATED METHOD 06/11/2024 12:55 PM [facility] RBC, Urine >4,000(H) 0 - 4 /HPF LAB URINALYSIS - AUTOMATED METHOD 06/11/2024 12:55 PM [facility] WBC, Urine 44.7(H) 0 - 4 /HPF LAB URINALYSIS - AUTOMATED METHOD 06/11/2024 12:55 PM [facility] Squamous Epithelial, Urine 0 0 - 60 /LPF LAB URINALYSIS - AUTOMATED METHOD 06/11/2024 12:55 PM [facility] Bacteria, Urine Few(A) Negative /HPF LAB URINALYSIS - AUTOMATED METHOD 06/11/2024 12:55 PM [facility] Hyaline Casts, Urine 1.4 0 - 3 /LPF LAB URINALYSIS - AUTOMATED METHOD 06/11/2024 12:55 PM [facility] Urine Urine specimen obtained by clean catch procedure / Unknown 06/11/2024 11:00 AM EST 06/11/2024 11:58 AM EST Lennie Aviles MD LAB URINE ORDERABLES Fin al Result Performing Organization Address [facility]/ZIP Co de Phone Number [facility] [address] [place] [address], [place] [phone] * Culture urine (06/11/2024 11:00 AM EST) Culture, Urine 10,000-49,000 CFU/mL Mixed bacterial morphotypes present suggestive of possible contamination during collection. Suggest appropriate recollection if clinically indicated. 06/13/2024 10:49 AM EST [facility] Urine Urine specimen obtained by clean catch procedure / Unknown 06/11/2024 11:00 AM EST 06/11/2024 11:58 AM EST Lennie Aviles MD LAB MICROBIOLOGY - GENER AL ORDERABLES Final Result Performing Organization Address [facility] [place] Co de Phone Number [facility] [address] [place] [address], [place] [phone] from Last 3 Months Insurance MEDICAID - [place] [employer] [place] [employer] Care Teams Car Head Liner Installer Relationship Specialty Start Date End Date Lennie Aviles MD [address] [phone] PCP - General Family Medicine 06/12/24
[2024-07-25 19:44] LABS: Troponin-I High Sensitivity 27.9 ng/L (<3.5-35.0)
[2024-07-25 19:57] VITALS: BP 119/59; PULSE 82; RESP 20; TEMP 36.8; O2SAT 95
[2024-07-25 20:15] VITALS: BP 119/59; PULSE 82; RESP 20; TEMP 36.8; O2SAT 95
== END 2024-07-25 20:15 | disposition home or self-care (01) ==
PROVIDERS: Emergency Provider Student in an Organized Health Care Education/Training Program; PCP Internal Medicine
DX: R07.9 Chest pain, unspecified (principal); I10 Essential (primary) hypertension; J44.9 Chronic obstructive pulmonary disease, unspecified; I25.2 Old myocardial infarction; Z95.2 Presence of prosthetic heart valve; Z86.718 Personal history of other venous thrombosis and embolism; Z79.01 Long term (current) use of anticoagulants
CPT/HCPCS: 36415; 71046; 80048; 84484; 85025; 93005; 94640; 99284; 99285

== ENCOUNTER → 2024-07-25 15:36 | Outpatient (BNV) | payer MEDICARE, MEDICAID, SELFPAY | PROVIDERS: Emergency Provider Student in an Organized Health Care Education/Training Program; PCP Internal Medicine; Visit Provider Radiology Diagnostic Radiology | DX: R07.9 Chest pain, unspecified (principal) | CPT/HCPCS: 71046 ==

== ENCOUNTER → 2024-07-25 15:37 | Outpatient (BNV) | payer MEDICARE, MEDICAID, SELFPAY | PROVIDERS: Emergency Provider Student in an Organized Health Care Education/Training Program; PCP Internal Medicine; Visit Provider Internal Medicine Cardiovascular Disease | DX: I49.3 Ventricular premature depolarization (principal); I49.1 Atrial premature depolarization | CPT/HCPCS: 93010 ==

== ENCOUNTER 2024-09-09 12:10 | Outpatient (AMB) | payer MEDICARE, MEDICAID, SELFPAY ==
--- OUTSIDE RECORDS SUMMARY | 2024-09-09 13:00 | XMS_ITS | Encounter Summary ---
Author Organization [facility] Address [address] [place] [address] Care Team Providers Care Insurance Risk Analyst Name Role Phone Lennie Aviles MD Primary Care Provider + Encounter Details Date Type Department Care Team (Late st Contact Info) Description 06/18/2024 Lab Requisition [facility] - Main Lab 299 [facility] [address] Lennie Aviles MD [address] [phone] Essential (primary) hypertension Social History Tobacco Use [...] LAB CHEMISTRY METHOD 06/20/2024 2:09 PM EST [facility] Potassium 3.8 3.5 - 5.5 mmol/L LAB CHEMISTRY METHOD 06/20/2024 2:09 PM EST [facility] Chloride 104 96 - 110 mmol/L LAB CHEMISTRY METHOD 06/20/2024 2:09 PM [facility] CO2 30 21 - 32 mmol/L LAB CHEMISTRY METHOD 06/20/2024 2:09 PM [facility] Anion Gap 5 3 - 11 LAB CHEMISTRY METHOD 06/20/2024 2:09 PM [facility] Glucose 132(H) 70 - 100 mg/dL LAB CHEMISTRY METHOD 06/20/2024 2:09 PM [facility] BUN 14 5 - 25 mg/dL LAB CHEMISTRY METHOD 06/20/2024 2:09 PM [facility] Creatinine 0.90 0.70 - 1.30 mg/dL LAB CHEMISTRY METHOD 06/20/2024 2:09 PM [facility] eGFR 84 >=60 mL/min/1. 73m2 LAB CHEMISTRY METHOD 06/20/2024 2:09 PM [facility] Comment:Calculation based on the??Chronic Kidney Disease Epidemiology Collaboration (CKD-EPI) equation refit??without adjustment for race. BUN/Creatinine Ratio 15.6 LAB CHEMISTRY METHOD 06/20/2024 2:09 PM [facility] Calcium 8.4(L) 8.5 - 10.5 mg/dL LAB CHEMISTRY METHOD 06/20/2024 2:09 PM [facility] AST (SGOT) 13 10 - 42 unit/L LAB CHEMISTRY METHOD 06/20/2024 2:09 PM [facility] ALT (SGPT) 19 10 - 60 unit/L LAB CHEMISTRY METHOD 06/20/2024 2:09 PM [facility] Alkaline Phosphatase 68 42 - 121 unit/L LAB CHEMISTRY METHOD 06/20/2024 2:09 PM [facility] Total Protein 5.7(L) 6.0 - 8.0 g/dL LAB CHEMISTRY METHOD 06/20/2024 2:09 PM [facility] Albumin 2.7(L) 3.2 - 5.0 g/dL LAB CHEMISTRY METHOD 06/20/2024 2:09 PM [facility] Total Bilirubin 0.4 0.0 - 1.4 mg/dL LAB CHEMISTRY METHOD 06/20/2024 2:09 PM [facility] Blood Venous blood specimen / Unknown Venipuncture / Unknown 06/20/2024 7:34 AM EST 06/20/2024 12:04 PM EST us Lennie Aviles MD LAB BLOOD ORDERABLES Fin al Result [facility] [address] [place] [address], * (ABNORMAL) Complete blood count (06/20/2024 7:34 AM EST) WBC 9.2 4.8 - 10.8 K/mcL LAB HEMETOLOGY METHOD 06/20/2024 12:59 PM [facility] RBC 4.10(L) 4.50 - 5.50 M/mcL LAB HEMETOLOGY METHOD 06/20/2024 12:59 PM [facility] Hemoglobin 11.6(L) 13.5 - 17.5 g/dL LAB HEMETOLOGY METHOD 06/20/2024 12:59 PM [facility] Hematocrit 38.0(L) 42.0 - 54.0 % LAB HEMETOLOGY METHOD 06/20/2024 12:59 PM [facility] MCV 92.2 79.0 - 98.0 FL LAB HEMETOLOGY METHOD 06/20/2024 12:59 PM [facility] MCH 28.2 27.0 - 32.0 pcg LAB HEMETOLOGY METHOD 06/20/2024 12:59 PM [facility] MCHC 30.5(L) 32.0 - 37.0 g/dL LAB HEMETOLOGY METHOD 06/20/2024 12:59 PM EST [facility] RDW 13.8 11.0 - 15.0 % LAB HEMETOLOGY METHOD 06/20/2024 12:59 PM EST [facility] Platelets 277 130 - 400 K/mcL LAB HEMETOLOGY METHOD 06/20/2024 12:59 PM [facility] MPV 10.4 7.0 - 11.0 FL LAB HEMETOLOGY METHOD 06/20/2024 12:59 PM EST [facility] NRBC 0.0 <1.0 % LAB HEMETOLOGY METHOD 06/20/2024 12:59 PM [facility] NRBC Absolute 0.00 <0.10 K/mcL LAB HEMETOLOGY METHOD 06/20/2024 12:59 PM [facility] Blood Venous blood specimen / Unknown Venipuncture / Unknown 06/20/2024 7:34 AM EST 06/20/2024 12:04 PM EST us Lennie Aviles MD LAB BLOOD ORDERABLES Fin al Result [facility] [address] [place] [address], [place] [phone] documented in this encounter Visit Diagnoses Diagnosis Essential (primary) hypertension Unspecified essential hypertension documented in this encounter Care Teams Insurance Risk Analyst Relationship Specialty Start Date End Date Lennie Aviles MD [address] [phone] PCP - General Family Medicine 06/12/24 documented as of this encounter
--- OUTSIDE RECORDS SUMMARY | 2024-09-09 13:00 | XMS_ITS | Encounter Summary ---
Author Organization [facility] Address [address] [place] [address] Care Team Providers Care Managing Jeweler Name Role Phone Lennie Aviles MD Primary Care Provider + Encounter Details Date Type Department Care Team (Late st Contact Info) Description 06/24/2024 Lab Requisition [facility] - Main Lab 299 [facility] [place] [address] Lennie Aviles MD [address] [phone] Essential (primary) hypertension Social History Tobacco Use [...] LAB CHEMISTRY METHOD 06/27/2024 1:32 PM EST [facility] Potassium 3.7 3.5 - 5.5 mmol/L LAB CHEMISTRY METHOD 06/27/2024 1:32 PM EST [facility] Chloride 105 96 - 110 mmol/L LAB CHEMISTRY METHOD 06/27/2024 1:32 PM [facility] CO2 28 21 - 32 mmol/L LAB CHEMISTRY METHOD 06/27/2024 1:32 PM [facility] Anion Gap 9 3 - 11 LAB CHEMISTRY METHOD 06/27/2024 1:32 PM [facility] Glucose 140(H) 70 - 100 mg/dL LAB CHEMISTRY METHOD 06/27/2024 1:32 PM [facility] BUN 16 5 - 25 mg/dL LAB CHEMISTRY METHOD 06/27/2024 1:32 PM [facility] Creatinine 0.94 0.70 - 1.30 mg/dL LAB CHEMISTRY METHOD 06/27/2024 1:32 PM [facility] eGFR 80 >=60 mL/min/1. 73m2 LAB CHEMISTRY METHOD 06/27/2024 1:32 PM [facility] Comment:Calculation based on the??Chronic Kidney Disease Epidemiology Collaboration (CKD-EPI) equation refit??without adjustment for race. BUN/Creatinine Ratio 17.0 LAB CHEMISTRY METHOD 06/27/2024 1:32 PM [facility] Calcium 9.1 8.5 - 10.5 mg/dL LAB CHEMISTRY METHOD 06/27/2024 1:32 PM [facility] AST (SGOT) 10 10 - 42 unit/L LAB CHEMISTRY METHOD 06/27/2024 1:32 PM [facility] ALT (SGPT) 17 10 - 60 unit/L LAB CHEMISTRY METHOD 06/27/2024 1:32 PM [facility] Alkaline Phosphatase 69 42 - 121 unit/L LAB CHEMISTRY METHOD 06/27/2024 1:32 PM [facility] Total Protein 6.2 6.0 - 8.0 g/dL LAB CHEMISTRY METHOD 06/27/2024 1:32 PM [facility] Albumin 2.8(L) 3.2 - 5.0 g/dL LAB CHEMISTRY METHOD 06/27/2024 1:32 PM [facility] Total Bilirubin 0.3 0.0 - 1.4 mg/dL LAB CHEMISTRY METHOD 06/27/2024 1:32 PM [facility] Blood Venous blood specimen / Unknown Venipuncture / Unknown 06/27/2024 9:15 AM EST 06/27/2024 10:57 AM EST us Lennie Aviles MD LAB BLOOD ORDERABLES Fin al Result [facility] [address] [place] [address], * (ABNORMAL) Complete blood count (06/27/2024 9:15 AM EST) WBC 7.2 4.8 - 10.8 K/mcL LAB HEMETOLOGY METHOD 06/27/2024 12:37 PM [facility] RBC 4.40(L) 4.50 - 5.50 M/mcL LAB HEMETOLOGY METHOD 06/27/2024 12:37 PM [facility] Hemoglobin 12.4(L) 13.5 - 17.5 g/dL LAB HEMETOLOGY METHOD 06/27/2024 12:37 PM [facility] Hematocrit 40.2(L) 42.0 - 54.0 % LAB HEMETOLOGY METHOD 06/27/2024 12:37 PM [facility] MCV 91.2 79.0 - 98.0 FL LAB HEMETOLOGY METHOD 06/27/2024 12:37 PM [facility] MCH 28.1 27.0 - 32.0 pcg LAB HEMETOLOGY METHOD 06/27/2024 12:37 PM [facility] MCHC 30.8(L) 32.0 - 37.0 g/dL LAB HEMETOLOGY METHOD 06/27/2024 12:37 PM EST [facility] RDW 13.2 11.0 - 15.0 % LAB HEMETOLOGY METHOD 06/27/2024 12:37 PM EST [facility] Platelets 207 130 - 400 K/mcL LAB HEMETOLOGY METHOD 06/27/2024 12:37 PM [facility] MPV 9.5 7.0 - 11.0 FL LAB HEMETOLOGY METHOD 06/27/2024 12:37 PM [facility] NRBC 0.0 <1.0 % LAB HEMETOLOGY METHOD 06/27/2024 12:37 PM [facility] NRBC Absolute 0.00 <0.10 K/mcL LAB HEMETOLOGY METHOD 06/27/2024 12:37 PM [facility] Blood Venous blood specimen / Unknown 06/27/2024 9:15 AM EST 06/27/2024 10:59 AM EST us Lennie Aviles MD LAB BLOOD ORDERABLES Fin al Result [facility] [address] [place] [address], documented in this encounter Visit Diagnoses Diagnosis Essential (primary) hypertension Unspecified essential hypertension documented in this encounter Care Teams Managing Jeweler Relationship Specialty Start Date End Date Lennie Aviles MD [address] [place] [phone] PCP - General Family Medicine 06/12/24 documented as of this encounter
--- OUTSIDE RECORDS SUMMARY | 2024-09-09 13:00 | XMS_ITS | Encounter Summary ---
Author Organization [facility] Address [address] [place] [address] Care Team Providers Care Java Web Engineer Name Role Phone Lennie Aviles MD Primary Care Provider + Encounter Details Date Type Department Care Team (Late st Contact Info) Description 06/11/2024 Lab Requisition [facility] - Main Lab 299 [facility] [place] [address] Lennie Aviles MD [address] [phone] Frequency of micturition Social History Tobacco Use [...] reflex microscopic (06/11/2024 11:00 AM EST) Specific [place] Urine 1.015 1.003 - 1.030 LAB URINALYSIS - AUTOMATED METHOD 06/11/2024 12:55 PM EST [facility] pH, Urine 6.0 5.0 - 8.0 pH LAB URINALYSIS - AUTOMATED METHOD 06/11/2024 12:55 PM [facility] Leukocytes, Urine Trace(A) Negative LAB URINALYSIS - AUTOMATED METHOD 06/11/2024 12:55 PM [facility] Nitrite, Urine Negative Negative LAB URINALYSIS - AUTOMATED METHOD 06/11/2024 12:55 PM [facility] Protein, Urine 30(A) <=Trace mg/dL LAB URINALYSIS - AUTOMATED METHOD 06/11/2024 12:55 PM [facility] Glucose, Urine Negative Negative mg/dL LAB URINALYSIS - AUTOMATED METHOD 06/11/2024 12:55 PM [facility] Ketones, Urine Negative Negative mg/dL LAB URINALYSIS - AUTOMATED METHOD 06/11/2024 12:55 PM [facility] Urobilinogen , Urine 0.2 0.2 - 1.0 mg/dL LAB URINALYSIS - AUTOMATED METHOD 06/11/2024 12:55 PM [facility] Bilirubin, Urine Negative Negative LAB URINALYSIS - AUTOMATED METHOD 06/11/2024 12:55 PM [facility] Blood, Urine Large(A) Negative LAB URINALYSIS - AUTOMATED METHOD 06/11/2024 12:55 PM [facility] RBC, Urine >4,000(H) 0 - 4 /HPF LAB URINALYSIS - AUTOMATED METHOD 06/11/2024 12:55 PM [facility] WBC, Urine 44.7(H) 0 - 4 /HPF LAB URINALYSIS - AUTOMATED METHOD 06/11/2024 12:55 PM [facility] Squamous Epithelial, Urine 0 0 - 60 /LPF LAB URINALYSIS - AUTOMATED METHOD 06/11/2024 12:55 PM [facility] Bacteria, Urine Few(A) Negative /HPF LAB URINALYSIS - AUTOMATED METHOD 06/11/2024 12:55 PM EST [facility] Hyaline Casts, Urine 1.4 0 - 3 /LPF LAB URINALYSIS - AUTOMATED METHOD 06/11/2024 12:55 PM [facility] Urine Urine specimen obtained by clean catch procedure / Unknown 06/11/2024 11:00 AM EST 06/11/2024 11:58 AM EST Lennie Aviles MD LAB URINE ORDERABLES Fin al Result Performing Organization Address [facility]/ZIP Co de Phone Number [facility] [address] [place] [address], [place] [phone] * Culture urine (06/11/2024 11:00 AM EST) Culture, Urine 10,000-49,000 CFU/mL Mixed bacterial morphotypes present suggestive of possible contamination during collection. Suggest appropriate recollection if clinically indicated. 06/13/2024 10:49 AM [facility] Urine Urine specimen obtained by clean catch procedure / Unknown 06/11/2024 11:00 AM EST 06/11/2024 11:58 AM EST Lennie Aviles MD LAB MICROBIOLOGY - GENER AL ORDERABLES Final Result Performing Organization Address [facility]/ZIP Co de Phone Number [facility] [address] [place] [address], [place] [phone] documented in this encounter Visit Diagnoses Diagnosis Frequency of micturition Urinary frequency documented in this encounter Care Teams Java Web Engineer Relationship Specialty Start Date End Date Lennie Aviles MD [address] [place] [phone] PCP - General Family Medicine 06/12/24 documented as of this encounter
--- OUTSIDE RECORDS SUMMARY | 2024-09-09 13:00 | XMS_ITS | Encounter Summary ---
Author Organization [facility] Address [address] [place] [phone] Care Team Providers Care Hydroelectric Plant Mechanical Engineer Name Role Phone Lennie Aviles MD Primary Care Provider + Encounter Details Date Type Department Care Team (Late st Contact Info) Description 07/19/2024 Lab Requisition [facility] - Main Lab 299 [facility] [place] [address] Beau Ramachandran MD [address] [place] [address] Chronic obstructive pulmonary disease, unspecified (CMS/HCC V24, CMS/HCC V28); Essential (primary) hypertension; Benign prostatic hyperplasia with [...] Diagnoses Diagnosis Chronic obstructive pulmonary disease, unspecified (CMS/HCC V24, CMS/HCC V28) Essential (primary) hypertension Unspecified essential hypertension Benign prostatic hyperplasia with lower urinary tract symptoms documented in this encounter Care Teams Hydroelectric Plant Mechanical Engineer Relationship Specialty Start Date End Date Lennie Aviles MD [address] [phone] PCP - General Family Medicine 06/12/24 documented as of this encounter
--- OUTSIDE RECORDS SUMMARY | 2024-09-09 13:00 | XMS_ITS | Encounter Summary ---
Author Organization [facility] Address [address] [place] [address] Care Team Providers Care Peer Educator Name Role Phone Lennie Aviles MD Primary Care Provider + Encounter Details Date Type Department Care Team (Late st Contact Info) Description 06/10/2024 Lab Requisition [facility] - Main Lab 299 [facility] [place] [address] Lennie Aviles MD [address] [phone] Essential (primary) hypertension Social History Tobacco Use [...] AM EST) WBC 13.3(H) 4.8 - 10.8 K/[facility] LAB HEMETOLOGY METHOD 06/13/2024 1:40 PM EST [facility] RBC 4.40(L) 4.50 - 5.50 M/[facility] LAB HEMETOLOGY METHOD 06/13/2024 1:40 PM EST [facility] Hemoglobin 12.7(L) 13.5 - 17.5 g/dL LAB HEMETOLOGY METHOD 06/13/2024 1:40 PM [facility] Hematocrit 41.5(L) 42.0 - 54.0 % LAB HEMETOLOGY METHOD 06/13/2024 1:40 PM [facility] MCV 93.7 79.0 - 98.0 FL LAB HEMETOLOGY METHOD 06/13/2024 1:40 PM [facility] MCH 28.7 27.0 - 32.0 pcg LAB HEMETOLOGY METHOD 06/13/2024 1:40 PM [facility] MCHC 30.6(L) 32.0 - 37.0 g/dL LAB HEMETOLOGY METHOD 06/13/2024 1:40 PM [facility] RDW 13.5 11.0 - 15.0 % LAB HEMETOLOGY METHOD 06/13/2024 1:40 PM [facility] Platelets 481(H) 130 - 400 K/mcL LAB HEMETOLOGY METHOD 06/13/2024 1:40 PM [facility] MPV 9.9 7.0 - 11.0 FL LAB HEMETOLOGY METHOD 06/13/2024 1:40 PM [facility] NRBC 0.0 <1.0 % LAB HEMETOLOGY METHOD 06/13/2024 1:40 PM [facility] NRBC Absolute 0.00 <0.10 K/mcL LAB HEMETOLOGY METHOD 06/13/2024 1:40 PM [facility] Blood Venous blood specimen / Unknown Venipuncture / Unknown 06/13/2024 10:50 AM EST 06/13/2024 12:26 PM EST us Lennie Aviles MD LAB BLOOD ORDERABLES Fin al Result [facility] [address] [place] [address], [place] [phone] * (ABNORMAL) Comprehensive metabolic panel (06/13/2024 10:50 AM EST) Sodium 139 133 - 145 mmol/L LAB CHEMISTRY METHOD 06/13/2024 2:12 PM EST [facility] Potassium 4.4 3.5 - 5.5 mmol/L LAB CHEMISTRY METHOD 06/13/2024 2:12 PM EST [facility] Chloride 105 96 - 110 mmol/L LAB CHEMISTRY METHOD 06/13/2024 2:12 PM EST [facility] CO2 30 21 - 32 mmol/L LAB CHEMISTRY METHOD 06/13/2024 2:12 PM [facility] Anion Gap 4 3 - 11 LAB CHEMISTRY METHOD 06/13/2024 2:12 PM [facility] Glucose 135(H) 70 - 100 mg/dL LAB CHEMISTRY METHOD 06/13/2024 2:12 PM [facility] BUN 24 5 - 25 mg/dL LAB CHEMISTRY METHOD 06/13/2024 2:12 PM [facility] Creatinine 1.08 0.70 - 1.30 mg/dL LAB CHEMISTRY METHOD 06/13/2024 2:12 PM [facility] eGFR 68 >=60 mL/min/1. 73m2 LAB CHEMISTRY METHOD 06/13/2024 2:12 PM [facility] Comment:Calculation based on the??Chronic Kidney Disease Epidemiology Collaboration (CKD-EPI) equation refit??without adjustment for race. BUN/Creatinine Ratio 22.2 LAB CHEMISTRY METHOD 06/13/2024 2:12 PM [facility] Calcium 9.1 8.5 - 10.5 mg/dL LAB CHEMISTRY METHOD 06/13/2024 2:12 PM [facility] AST (SGOT) 13 10 - 42 unit/L LAB CHEMISTRY METHOD 06/13/2024 2:12 PM [facility] ALT (SGPT) 34 10 - 60 unit/L LAB CHEMISTRY METHOD 06/13/2024 2:12 PM [facility] Alkaline Phosphatase 79 42 - 121 unit/L LAB CHEMISTRY METHOD 06/13/2024 2:12 PM [facility] Total Protein 6.6 6.0 - 8.0 g/dL LAB CHEMISTRY METHOD 06/13/2024 2:12 PM [facility] Albumin 3.2 3.2 - 5.0 g/dL LAB CHEMISTRY METHOD 06/13/2024 2:12 PM [facility] Total Bilirubin 0.3 0.0 - 1.4 mg/dL LAB CHEMISTRY METHOD 06/13/2024 2:12 PM [facility] Blood Venous blood specimen / Unknown Venipuncture / Unknown 06/13/2024 10:50 AM EST 06/13/2024 12:26 PM EST us Lennie Aviles MD LAB BLOOD ORDERABLES Fin al Result [facility] [address] [place] [address], documented in this encounter Visit Diagnoses Diagnosis Essential (primary) hypertension Unspecified essential hypertension documented in this encounter Care Teams Peer Educator Relationship Specialty Start Date End Date Lennie Aviles MD [address] [place] [phone] PCP - General Family Medicine 06/12/24 documented as of this encounter
--- OUTSIDE RECORDS SUMMARY | 2024-09-09 13:00 | XMS_ITS | Encounter Summary ---
Author Organization [facility] Address [address] [place] [phone] Care Team Providers Care Educational Assistant Teacher Name Role Phone Elder, Lennie Trammell MD Primary Care Provider + Encounter Details Date Type Department Care Team (Late st Contact Info) Description 07/22/2024 Lab Requisition [facility] - Main Lab 299 [facility] [place] [address] Beau Ramachandran MD [address] [place] [address] Essential (primary) hypertension; Chronic obstructive pulmonary disease, unspecified (CMS/HCC V24, CMS/HCC V28); Benign prostatic hyperplasia with lower urinary tract [...] mmol/L LAB CHEMISTRY METHOD 07/22/2024 11:49 AM [facility] Potassium 4.3 3.5 - 5.5 mmol/L LAB CHEMISTRY METHOD 07/22/2024 11:49 AM [facility] Chloride 102 96 - 110 mmol/L LAB CHEMISTRY METHOD 07/22/2024 11:49 AM [facility] CO2 29 21 - 32 mmol/L LAB CHEMISTRY METHOD 07/22/2024 11:49 AM [facility] Anion Gap 10 3 - 11 LAB CHEMISTRY METHOD 07/22/2024 11:49 AM [facility] Glucose 108(H) 70 - 100 mg/dL LAB CHEMISTRY METHOD 07/22/2024 11:49 AM [facility] BUN 19 5 - 25 mg/dL LAB CHEMISTRY METHOD 07/22/2024 11:49 AM [facility] Creatinine 1.13 0.70 - 1.30 mg/dL LAB CHEMISTRY METHOD 07/22/2024 11:49 AM [facility] eGFR 64 >=60 mL/min/1. 73m2 LAB CHEMISTRY METHOD 07/22/2024 11:49 AM [facility] LAB Comment:Calculation based on the??Chronic Kidney Disease Epidemiology Collaboration (CKD-EPI) equation refit??without adjustment for race. BUN/Creatinine Ratio 16.8 LAB CHEMISTRY METHOD 07/22/2024 11:49 AM [facility] Calcium 8.8 8.5 - 10.5 mg/dL LAB CHEMISTRY METHOD 07/22/2024 11:49 AM [facility] Blood Venous blood specimen / Unknown Venipuncture / Unknown 07/22/2024 5:37 AM EST 07/22/2024 10:35 AM EST us Beau Ramachandran MD LAB BLOOD ORDERABLES Final R esult [facility] [address] [place] [address], [place] [phone] * (ABNORMAL) Complete blood count (07/22/2024 5:37 AM EST) [facility] WBC 9.1 4.8 - 10.8 K/mcL LAB HEMETOLOGY METHOD 07/22/2024 11:13 AM [facility] RBC 4.00(L) 4.50 - 5.50 M/mcL LAB HEMETOLOGY METHOD 07/22/2024 11:13 AM [facility] Hemoglobin 11.2(L) 13.5 - 17.5 g/dL LAB HEMETOLOGY METHOD 07/22/2024 11:13 AM [facility] Hematocrit 36.8(L) 42.0 - 54.0 % LAB HEMETOLOGY METHOD 07/22/2024 11:13 AM [facility] MCV 91.8 79.0 - 98.0 FL LAB HEMETOLOGY METHOD 07/22/2024 11:13 AM [facility] MCH 27.9 27.0 - 32.0 pcg LAB HEMETOLOGY METHOD 07/22/2024 11:13 AM [facility] MCHC 30.4(L) 32.0 - 37.0 g/dL LAB HEMETOLOGY METHOD 07/22/2024 11:13 AM [facility] RDW 13.7 11.0 - 15.0 % LAB HEMETOLOGY METHOD 07/22/2024 11:13 AM [facility] Platelets 369 130 - 400 K/mcL LAB HEMETOLOGY METHOD 07/22/2024 11:13 AM [facility] MPV 10.0 7.0 - 11.0 FL LAB HEMETOLOGY METHOD 07/22/2024 11:13 AM [facility] NRBC 0.0 <1.0 % LAB HEMETOLOGY METHOD 07/22/2024 11:13 AM [facility] NRBC Absolute 0.00 <0.10 K/mcL LAB HEMETOLOGY METHOD 07/22/2024 11:13 AM EST [facility] Blood Venous blood specimen / Unknown Venipuncture / Unknown 07/22/2024 5:37 AM EST 07/22/2024 10:35 AM EST us Beau Ramachandran MD LAB BLOOD ORDERABLES Final R esult [facility] [address] [place] [address], documented in this encounter Visit Diagnoses Diagnosis Essential (primary) hypertension Unspecified essential hypertension Chronic obstructive pulmonary disease, unspecified (CMS/HCC V24, CMS/HCC V28) Benign prostatic hyperplasia with lower urinary tract symptoms documented in this encounter Care Teams Educational Assistant Teacher Relationship Specialty Start Date End Date Lennie Aviles MD [address] [place] [phone] PCP - General Family Medicine 06/12/24 documented as of this encounter
--- OUTSIDE RECORDS SUMMARY | 2024-09-09 13:00 | XMS_ITS | Encounter Summary ---
Author Organization [facility] [address] Address [address] [place] [address] Care Team Providers Care Print Color Operator Name Role Phone Elder, Lennie Trammell MD Primary Care Provider + Encounter Details Date Type Department Care Team (Late st Contact Info) Description 07/27/2024 Lab Requisition [facility] - Main Lab [address] [facility] [place] [address] Beau Ramachandran MD [address] [place] [address] Essential (primary) hypertension Social History Tobacco Use [...] Associated Diagnosis Comments COMPLETE BLOOD COUNT Routine 07/28/2024 7:08 AM EST Essential (primary) hypertension BASIC METABOLIC PANEL Routine 07/28/2024 7:08 AM EST Essential (primary) hypertension documented in this encounter Results * (ABNORMAL) Basic metabolic panel (07/28/2024 7:08 AM EST) Sodium 139 133 - 145 mmol/L LAB CHEMISTRY METHOD 07/28/2024 11:34 AM EST [facility] Potassium 4.2 3.5 - 5.5 mmol/L LAB CHEMISTRY METHOD 07/28/2024 11:34 AM EST [facility] Chloride 105 96 - 110 mmol/L LAB CHEMISTRY METHOD 07/28/2024 11:34 AM [facility] CO2 29 21 - 32 mmol/L LAB CHEMISTRY METHOD 07/28/2024 11:34 AM [facility] Anion Gap 5 3 - 11 LAB CHEMISTRY METHOD 07/28/2024 11:34 AM [facility] Glucose 113(H) 70 - 100 mg/dL LAB CHEMISTRY METHOD 07/28/2024 11:34 AM [facility] BUN 13 5 - 25 mg/dL LAB CHEMISTRY METHOD 07/28/2024 11:34 AM [facility] Creatinine 0.88 0.70 - 1.30 mg/dL LAB CHEMISTRY METHOD 07/28/2024 11:34 AM [facility] eGFR 85 >=60 mL/min/1. 73m2 LAB CHEMISTRY METHOD 07/28/2024 11:34 AM [facility] Comment:Calculation based on the??Chronic Kidney Disease Epidemiology Collaboration (CKD-EPI) equation refit??without adjustment for race. BUN/Creatinine Ratio 14.8 LAB CHEMISTRY METHOD 07/28/2024 11:34 AM [facility] Calcium 8.9 8.5 - 10.5 mg/dL LAB CHEMISTRY METHOD 07/28/2024 11:34 AM [facility] Blood Venous blood specimen / Unknown Venipuncture / Unknown 07/28/2024 7:08 AM EST 07/28/2024 10:20 AM EST us Beau Ramachandran MD LAB BLOOD ORDERABLES Final R esult [facility] [address] [place] [address], * (ABNORMAL) Complete blood count (07/28/2024 7:08 AM EST) WBC 10.3 4.8 - 10.8 K/mcL LAB HEMETOLOGY METHOD 07/28/2024 11:05 AM [facility] RBC 3.80(L) 4.50 - 5.50 M/mcL LAB HEMETOLOGY METHOD 07/28/2024 11:05 AM [facility] Hemoglobin 10.4(L) 13.5 - 17.5 g/dL LAB HEMETOLOGY METHOD 07/28/2024 11:05 AM [facility] Hematocrit 35.5(L) 42.0 - 54.0 % LAB HEMETOLOGY METHOD 07/28/2024 11:05 AM [facility] MCV 92.9 79.0 - 98.0 FL LAB HEMETOLOGY METHOD 07/28/2024 11:05 AM [facility] MCH 27.2 27.0 - 32.0 pcg LAB HEMETOLOGY METHOD 07/28/2024 11:05 AM [facility] MCHC 29.3(L) 32.0 - 37.0 g/dL LAB HEMETOLOGY METHOD 07/28/2024 11:05 AM [facility] RDW 14.1 11.0 - 15.0 % LAB HEMETOLOGY METHOD 07/28/2024 11:05 AM [facility] Platelets 354 130 - 400 K/mcL LAB HEMETOLOGY METHOD 07/28/2024 11:05 AM [facility] MPV 9.7 7.0 - 11.0 FL LAB HEMETOLOGY METHOD 07/28/2024 11:05 AM [facility] NRBC 0.0 <1.0 % LAB HEMETOLOGY METHOD 07/28/2024 11:05 AM [facility] NRBC Absolute 0.00 <0.10 K/mcL LAB HEMETOLOGY METHOD 07/28/2024 11:05 AM [facility] Blood Venous blood specimen / Unknown Venipuncture / Unknown 07/28/2024 7:08 AM EST 07/28/2024 10:21 AM EST us Beau Ramachandran MD LAB BLOOD ORDERABLES Final R esult [facility] ([facility] [address] [place] [address], [place] [phone] documented in this encounter Visit Diagnoses Diagnosis Essential (primary) hypertension Unspecified essential hypertension documented in this encounter Care Teams Print Color Operator Relationship Specialty Start Date End Date Lennie Aviles MD [address] [id number] PCP - General Family Medicine 06/12/24 documented as of this encounter
--- OUTSIDE RECORDS SUMMARY | 2024-09-09 13:00 | XMS_ITS | Encounter Summary ---
Author Organization [facility] Address [address] [place] [address] Care Team Providers Care Nuclear Powerplant Mechanic Name Role Phone Elder, Lennie Trammell MD Primary Care Provider + Encounter Details Date Type Department Care Team (Late st Contact Info) Description 08/13/2024 Lab Requisition [facility] - Main Lab [address] [place] [address] Beau Ramachandran MD [address] [place] [address] Essential (primary) hypertension; Heart failure, unspecified (CMS/HCC V24, CMS/HCC V28) Social History Tobacco Use Types Packs/Day Years [...] Associated Diagnosis Comments COMPLETE BLOOD COUNT Routine 08/15/2024 12:23 PM EDT Essential (primary) hypertension Heart failure, unspecified (CMS/HCC) BASIC METABOLIC PANEL Routine 08/15/2024 12:23 PM EDT Essential (primary) hypertension Heart failure, unspecified (CMS/HCC) documented in this encounter Results * Basic metabolic panel (08/15/2024 12:23 PM EDT) Sodium 139 133 - 145 mmol/L LAB CHEMISTRY METHOD 08/15/2024 2:53 PM EDT [facility] ([facility] Potassium 3.8 3.5 - 5.5 mmol/L LAB CHEMISTRY METHOD 08/15/2024 2:[address] [facility] Comment:Hemolysis present Chloride 103 96 - 110 mmol/L LAB CHEMISTRY METHOD 08/15/2024 2:53 PM [facility] CO2 28 21 - 32 mmol/L LAB CHEMISTRY METHOD 08/15/2024 2:53 PM [facility] Anion Gap 8 3 - 11 LAB CHEMISTRY METHOD 08/15/2024 2:[address] [facility] Glucose 100 70 - 100 mg/dL LAB CHEMISTRY METHOD 08/15/2024 2:53 PM [facility] BUN 21 5 - 25 mg/dL LAB CHEMISTRY METHOD 08/15/2024 2:53 PM [facility] Creatinine 1.06 0.70 - 1.30 mg/dL LAB CHEMISTRY METHOD 08/15/2024 2:53 PM [facility] eGFR 69 >=60 mL/min/1. 73m2 LAB CHEMISTRY METHOD 08/15/2024 2:[address] [facility] Comment:Calculation based on the??Chronic Kidney Disease Epidemiology Collaboration (CKD-EPI) equation refit??without adjustment for race. BUN/Creatinine Ratio 19.8 LAB CHEMISTRY METHOD 08/15/2024 2:[address] [facility] Calcium 8.9 8.5 - 10.5 mg/dL LAB CHEMISTRY METHOD 08/15/2024 2:[address] [facility] Blood Venous blood specimen / Unknown Venipuncture / Unknown 08/15/2024 12:23 PM EDT 08/15/2024 12:57 PM EDT us Beau Ramachandran MD LAB BLOOD ORDERABLES Final R esult [facility] [address] [place] [address], * (ABNORMAL) Complete blood count (08/15/2024 12:23 PM EDT) [facility] WBC 8.2 4.8 - 10.8 K/mcL LAB HEMETOLOGY METHOD [facility]24 [facility] RBC 4.50 4.50 - 5.50 M/mcL LAB HEMETOLOGY METHOD 08/15/2024 1:13 [facility] Hemoglobin 12.2(L) 13.5 - 17.5 g/dL LAB HEMETOLOGY METHOD 08/15/2024 1:13 PM [facility] Hematocrit 39.8(L) 42.0 - 54.0 % LAB HEMETOLOGY METHOD 08/15/2024 1:13 PM [facility] MCV 89.0 79.0 - 98.0 FL LAB HEMETOLOGY METHOD 08/15/2024 1:13 PM [facility] MCH 27.3 27.0 - 32.0 pcg LAB HEMETOLOGY METHOD 08/15/2024 1:13 PM [facility] MCHC 30.7(L) 32.0 - 37.0 g/dL LAB HEMETOLOGY METHOD 08/15/2024 1:13 PM [facility] RDW 14.0 11.0 - 15.0 % LAB HEMETOLOGY METHOD 08/15/2024 1:13 PM [facility] Platelets 213 130 - 400 K/mcL LAB HEMETOLOGY METHOD 08/15/2024 1:13 PM [facility] MPV 10.8 7.0 - 11.0 FL LAB HEMETOLOGY METHOD 08/15/2024 1:13 PM [facility] NRBC 0.0 <1.0 % LAB HEMETOLOGY METHOD 08/15/2024 1:13 PM [facility] NRBC Absolute 0.00 <0.10 K/mcL LAB HEMETOLOGY METHOD 08/15/2024 1:[address] [facility] Blood Venous blood specimen / Unknown Venipuncture / Unknown 08/15/2024 12:23 PM EDT 08/15/2024 12:57 PM EDT us Beau Ramachandran MD LAB BLOOD ORDERABLES Final R esult [facility] [address] [place] [address], documented in this encounter Visit Diagnoses Diagnosis Essential (primary) hypertension Unspecified essential hypertension Heart failure, unspecified (CMS/HCC V24, CMS/HCC V28) Heart failure, unspecified documented in this encounter Care Teams Nuclear Powerplant Mechanic Relationship Specialty Start Date End Date Lennie Aviles MD [address] [place] [id number] PCP - General Family Medicine 06/12/24 documented as of this encounter
--- OUTSIDE RECORDS SUMMARY | 2024-09-09 13:00 | XMS_ITS | Encounter Summary ---
Author Organization [facility] Address [address] [place] [address] Care Team Providers Care High Density Press Operator Name Role Phone Elder, Lennie Trammell MD Primary Care Provider + Encounter Details Date Type Department Care Team (Late st Contact Info) Description 08/08/2024 Lab Requisition [facility] - Main Lab [address] [place] [address] Beau Ramachandran MD [address] [place] [address] Essential (primary) hypertension; Other heart failure (CMS/HCC V24, CMS/HCC V28) Social History Tobacco [...] Associated Diagnosis Comments COMPLETE BLOOD COUNT Routine 08/08/2024 10:31 AM EDT Essential (primary) hypertension Other heart failure (CMS/HCC) BASIC METABOLIC PANEL Routine 08/08/2024 10:31 AM EDT Essential (primary) hypertension Other heart failure (CMS/HCC) documented in this encounter Results * (ABNORMAL) Basic metabolic panel (08/08/2024 10:31 AM EDT) Sodium 142 133 - 145 mmol/L LAB CHEMISTRY METHOD 08/08/2024 1:45 PM EDT [facility] Potassium 3.8 3.5 - 5.5 mmol/L LAB CHEMISTRY METHOD 08/08/2024 1:45 PM EDT [facility] Chloride 103 96 - 110 mmol/L LAB CHEMISTRY METHOD 08/08/2024 1:45 PM [facility] CO2 26 21 - 32 mmol/L LAB CHEMISTRY METHOD 08/08/2024 1:45 PM [facility] Anion Gap 13(H) 3 - 11 LAB CHEMISTRY METHOD [facility]24 [facility] Glucose 158(H) 70 - 100 mg/dL LAB CHEMISTRY METHOD 08/08/2024 1:45 PM [facility] BUN 11 5 - 25 mg/dL LAB CHEMISTRY METHOD 08/08/2024 1:45 PM [facility] Creatinine 0.95 0.70 - 1.30 mg/dL LAB CHEMISTRY METHOD 08/08/2024 1:45 PM [facility] eGFR 79 >=60 mL/min/1. 73m2 LAB CHEMISTRY METHOD 08/08/2024 1:45 PM T [facility] Comment:Calculation based on the??Chronic Kidney Disease Epidemiology Collaboration (CKD-EPI) equation refit??without adjustment for race. BUN/Creatinine Ratio 11.6 LAB CHEMISTRY METHOD 08/08/2024 1:45 PM [facility] Calcium 9.0 8.5 - 10.5 mg/dL LAB CHEMISTRY METHOD 08/08/2024 1:45 PM T [facility] Blood Venous blood specimen / Unknown Venipuncture / Unknown 08/08/2024 10:31 AM EDT 08/08/2024 11:35 AM EDT us Beau Ramachandran MD LAB BLOOD ORDERABLES Final R esult [facility] [address] [place] [address], * (ABNORMAL) Complete blood count (08/08/2024 10:31 AM EDT) [facility] WBC 12.3(H) 4.8 - 10.8 K/mcL LAB HEMETOLOGY METHOD 08/08/2024 12:25 PM [facility] RBC 4.10(L) 4.50 - 5.50 M/mcL LAB HEMETOLOGY METHOD 08/08/2024 12:25 PM EDT [facility] Hemoglobin 11.1(L) 13.5 - 17.5 g/dL LAB HEMETOLOGY METHOD 08/08/2024 12:25 PM [facility] Hematocrit 36.4(L) 42.0 - 54.0 % LAB HEMETOLOGY METHOD 08/08/2024 12:25 PM [facility] MCV 89.9 79.0 - 98.0 FL LAB HEMETOLOGY METHOD 08/08/2024 12:[facility] MCH 27.4 27.0 - 32.0 pcg LAB HEMETOLOGY METHOD 08/08/2024 12:25 PM [facility] MCHC 30.5(L) 32.0 - 37.0 g/dL LAB HEMETOLOGY METHOD 08/08/2024 12:25 PM [facility] RDW 14.2 11.0 - 15.0 % LAB HEMETOLOGY METHOD 08/08/2024 12:25 PM [facility] Platelets 271 130 - 400 K/mcL LAB HEMETOLOGY METHOD 08/08/2024 12:25 PM [facility] MPV 9.9 7.0 - 11.0 FL LAB HEMETOLOGY METHOD 08/08/2024 12:25 PM [facility] NRBC 0.0 <1.0 % LAB HEMETOLOGY METHOD 08/08/2024 12:25 PM [facility] NRBC Absolute 0.00 <0.10 K/mcL LAB HEMETOLOGY METHOD 08/08/2024 12:25 PM EDT [facility] Blood Venous blood specimen / Unknown Venipuncture / Unknown 08/08/2024 10:31 AM EDT 08/08/2024 11:35 AM EDT us Beau Ramachandran MD LAB BLOOD ORDERABLES Final R esult [facility] [address] [place] [address], documented in this encounter Visit Diagnoses Diagnosis Essential (primary) hypertension Unspecified essential hypertension Other heart failure (CMS/HCC V24, CMS/HCC V28) documented in this encounter Care Teams High Density Press Operator Relationship Specialty Start Date End Date Lennie Aviles MD [address] [place] [id number] PCP - General Family Medicine 06/12/24 documented as of this encounter
--- OUTSIDE RECORDS SUMMARY | 2024-09-09 13:00 | XMS_ITS | Encounter Summary ---
Author Organization [facility] Address [id number] [place] [id number] Care Team Providers Care Senior Ux Designer Name Role Phone Lennie Aviles MD Primary Care Provider + Encounter Details Date Type Department Care Team (Late st Contact Info) Description 08/20/[address] [facility] - Main Lab [address] [facility] [place] [address] Beau Ramachandran MD [address] [place] [address] Essential (primary) hypertension; Heart failure, unspecified (CMS/HCC [...] unspecified documented in this encounter Care Teams Senior Ux Designer Relationship Specialty Start Date End Date Lennie Aviles MD [address] [address] PCP - General Family Medicine 06/12/24 documented as of this encounter
--- OUTSIDE RECORDS SUMMARY | 2024-09-09 13:00 | XMS_ITS | Clinical Summary ---
Author Organization 299 [facility] Address [address] [place] [address] Phone Care Team Providers Care Foundation Drill Operator Name Role Phone Elder, Lennie Trammell MD Primary Care Provider + Encounters Date Type Department Care Team Description 08/20/2024 Lab Requisition [facility] [address] [place] [phone] Beau Ramachandran MD Essential (primary) hypertension; Heart failure, unspecified (CMS/[facility] V24, CMS/[facility] V28) 08/13/2024 Lab Requisition [facility] [address] [place] [phone] Beau Ramachandran MD Essential (primary) hypertension; Heart failure, unspecified (CMS/[facility] V24, [facility] V28) 08/08/2024 Lab Requisition [facility] [address] [place] [phone] Beau Ramachandran MD Essential (primary) hypertension; Other heart failure (CMS/[facility] V24, CMS/[facility] V28) 07/27/2024 Lab Requisition [facility] [address] [place] [phone] Beau Ramachandran MD Essential (primary) hypertension 07/22/2024 Lab Requisition [facility] [address] [place] [phone] Beau Ramachandran MD Essential (primary) hypertension; Chronic obstructive pulmonary disease, unspecified (CMS/[facility] V24, CMS/[facility] V28); Benign prostatic hyperplasia with lower urinary tract symptoms 07/19/2024 Lab Requisition [facility] [address] [place] [phone] Beau Ramachandran MD Chronic obstructive pulmonary disease, unspecified ([facility] V24, [facility] V28); Essential (primary) hypertension; Benign prostatic hyperplasia with lower urinary tract symptoms 07/18/2024 Lab Requisition [facility] [address] [place] [address] Beau Ramachandran MD Essential (primary) hypertension; Atherosclerotic heart disease of [place] coronary artery without angina pectoris; Benign prostatic hyperplasia without lower urinary tract symptoms; Acute embolism and thrombosis of unspecified deep veins of unspecified lower extremity ([facility] V24, [facility] V28) 07/03/2024 Lab Requisition [facility] [address] [place] [address] Lennie Aviles MD Essential (primary) hypertension 06/24/2024 Lab Requisition [facility] [address] [place] [address] Lennie Aviles MD Essential (primary) hypertension 06/18/2024 Lab Requisition [facility] [address] [place] [address] Lennie Aviles MD Essential (primary) hypertension 06/11/2024 Lab Requisition [facility] [address] [place] [address] Lennie Aviles MD Frequency of micturition 06/10/2024 Lab Requisition [facility] [address] [place] [address] Lennie Aviles MD Essential (primary) hypertension from [...] Vaccines (1 of 2) 1990 RSV Immunization Adult Patients (1 - 1-dose 75+ series) 2015 COVID-19 Vaccine (1 - season) 2024 Cholesterol Screening (Lipid Panel) 06/03/2024 Depression Screening 06/03/2024 Falls Risk Assessment 06/03/2024 Medicare Annual Wellness Visit 06/03/2024 Social Influencers of Health Screening 06/03/2024 Influenza Vaccine (Season Ended) 2025 Hypertension/CHF/CAD Annual BMP Blood Test 08/15/2025 08/15/2024, 08/08/2024, 07/28/2024, Additional history exists HIB Vaccines Aged Out [...] age to complete this topic Meningococcal B Vaccine Aged Out No l onger eligible based on patient's age to complete this topic RSV Immunization Patients Under 20 months Aged Out No longer eligible based on patient's age to complete this topic Varicella Vaccines Aged Out No longer eligible based on patient's age to complete this topic Procedures Procedure Name Priority Date/Time Associated Diagnosis Comments BASIC METABOLIC PANEL Routine 08/15/2024 12:23 PM EDT Essential (primary) hypertension Heart failure, unspecified (CMS/HCC) COMPLETE BLOOD COUNT Routine 08/15/2024 12:23 PM EDT Essential (primary) hypertension Heart failure, unspecified (CMS/HCC) BASIC METABOLIC PANEL Routine 08/08/2024 10:31 AM EDT Essential (primary) hypertension Other heart failure (CMS/HCC) COMPLETE BLOOD COUNT Routine 08/08/2024 10:31 AM EDT Essential (primary) hypertension Other heart failure (CMS/HCC) BASIC METABOLIC PANEL Routine 07/28/2024 7:08 AM EST Essential (primary) hypertension COMPLETE BLOOD COUNT Routine 07/28/2024 7:08 AM EST Essential (primary) hypertension BASIC METABOLIC PANEL Routine 07/22/2024 5:37 AM [...] Essential (primary) hypertension Atherosclerotic heart disease of [place] coronary artery without angina pectoris Benign prostatic hyperplasia without lower urinary tract symptoms Acute embolism and thrombosis of unspecified deep veins of unspecified lower extremity (CMS/HCC) COMPLETE BLOOD COUNT Routine 07/18/2024 4:53 AM EST Essential (primary) hypertension Atherosclerotic heart disease of [place] coronary artery without angina pectoris Benign prostatic [...] 06/11/2024 11:00 AM EST Frequency of micturition from Last 3 Months Results * (ABNORMAL) Complete blood count (08/15/2024 12:23 PM EDT) Only the most recent of8 resultswithin the time period is included. WBC 8.2 4.8 - 10.8 K/mcL LAB [facility] RBC 4.50 4.50 - 5.50 M/mcL LAB HEMETOLOGY METHOD [facility] Hemoglobin 12.2(L) 13.5 - 17.5 g/dL LAB HEMETOLOGY METHOD 08/15/2024 1:13 PM [facility] Hematocrit 39.8(L) 42.0 - 54.0 % LAB HEMETOLOGY METHOD [facility]/2024 [facility] MCV 89.0 79.0 - 98.0 FL LAB HEMETOLOGY METHOD 08/15/2024 1:13 PM [facility] MCH 27.3 27.0 - 32.0 pcg LAB HEMETOLOGY METHOD 08/15/2024 1:13 PM [facility] MCHC 30.7(L) 32.0 - 37.0 g/dL LAB HEMETOLOGY METHOD 08/15/2024 1:13 PM EDT [facility] RDW 14.0 11.0 - 15.0 % LAB HEMETOLOGY METHOD 08/15/2024 1:13 PM EDT [facility] Platelets 213 130 - 400 K/mcL LAB HEMETOLOGY METHOD 08/15/2024 1:13 PM EDT [facility] MPV 10.8 7.0 - 11.0 FL LAB HEMETOLOGY METHOD 08/15/2024 1:13 PM EDT [facility] NRBC 0.0 <1.0 % LAB HEMETOLOGY METHOD 08/15/2024 1:13 PM EDT [facility] NRBC Absolute 0.00 <0.10 K/mcL LAB HEMETOLOGY METHOD 08/15/2024 1:13 PM EDT [facility] Blood Venous blood specimen / Unknown Venipuncture / Unknown 08/15/2024 12:23 PM EDT 08/15/2024 12:57 PM EDT Beau Ramachandran MD LAB BLOOD ORDERABLES Final R esult [facility] [address] [place] [address], * Basic metabolic panel (08/15/2024 12:23 PM EDT) Only the most recent of5 resultswithin the time period is included. Sodium 139 133 - 145 mmol/L LAB CHEMISTRY METHOD 08/15/2024 2:53 PM EDT [facility] Potassium 3.8 3.5 - 5.5 mmol/L LAB CHEMISTRY METHOD 08/15/2024 2:53 PM EDT [facility] Comment:Hemolysis present Chloride 103 96 - 110 mmol/L LAB CHEMISTRY METHOD 08/15/2024 2:53 PM EDT [facility] CO2 28 21 - 32 mmol/L LAB CHEMISTRY METHOD 08/15/2024 2:53 PM EDT [facility] Anion Gap 8 3 - 11 LAB CHEMISTRY METHOD 08/15/2024 2:53 PM EDT [facility] Glucose 100 70 - 100 mg/dL LAB CHEMISTRY METHOD 08/15/2024 2:53 PM EDT [facility] BUN 21 5 - 25 mg/dL LAB CHEMISTRY METHOD 08/15/2024 2:53 PM EDT [facility] Creatinine 1.06 0.70 - 1.30 mg/dL LAB CHEMISTRY METHOD 08/15/2024 2:53 PM EDT [facility] eGFR 69 >=60 mL/min/1. 73m2 LAB CHEMISTRY METHOD 08/15/2024 2:53 PM EDT [facility] Comment:Calculation based on the??Chronic Kidney Disease Epidemiology Collaboration (CKD-EPI) equation refit??without adjustment for race. BUN/Creatinine Ratio 19.8 LAB CHEMISTRY METHOD 08/15/2024 2:53 PM EDT [facility] Calcium 8.9 8.5 - 10.5 mg/dL LAB CHEMISTRY METHOD 08/15/2024 2:53 PM T [facility] Blood Venous blood specimen / Unknown Venipuncture / Unknown 08/15/2024 12:23 PM EDT 08/15/2024 12:57 PM EDT us Beau Ramachandran MD LAB BLOOD ORDERABLES Final R esult [facility] [address] [place] [address], * (ABNORMAL) Comprehensive metabolic panel (06/27/2024 9:15 AM EST) Only the most recent of3 resultswithin the time period is included. Sodium 142 133 - 145 mmol/L LAB CHEMISTRY METHOD 06/27/2024 1:32 PM EST [facility] Potassium 3.7 3.5 - 5.5 mmol/L LAB CHEMISTRY METHOD 06/27/2024 1:[address] [facility] Chloride 105 96 - 110 mmol/L LAB CHEMISTRY METHOD 06/27/2024 1:[address] [facility] CO2 28 21 - 32 mmol/L LAB CHEMISTRY METHOD 06/27/2024 1:[address] [facility] Anion Gap 9 3 - 11 LAB CHEMISTRY METHOD 06/27/2024 1:[address] [facility] Glucose 140(H) 70 - 100 mg/dL LAB CHEMISTRY METHOD 06/27/2024 1:[address] [facility] BUN 16 5 - 25 mg/dL LAB CHEMISTRY METHOD 06/27/2024 1:[address] [facility] Creatinine 0.94 0.70 - 1.30 mg/dL LAB CHEMISTRY METHOD 06/27/2024 1:[address] [facility] eGFR 80 >=60 mL/min/1. 73m2 LAB CHEMISTRY METHOD 06/27/2024 1:[address] [facility] Comment:Calculation based on the??Chronic Kidney Disease Epidemiology Collaboration (CKD-EPI) equation refit??without adjustment for race. BUN/Creatinine Ratio 17.0 LAB CHEMISTRY METHOD 06/27/2024 1:[address] [facility] Calcium 9.1 8.5 - 10.5 mg/dL LAB CHEMISTRY METHOD 06/27/2024 1:[address] [facility] AST (SGOT) 10 10 - 42 unit/L LAB CHEMISTRY METHOD 06/27/2024 1:[address] [facility] ALT (SGPT) 17 10 - 60 unit/L LAB CHEMISTRY METHOD 06/27/2024 1:[address] [facility] Alkaline Phosphatase 69 42 - 121 unit/L LAB CHEMISTRY METHOD 06/27/2024 1:[address] [facility] Total Protein 6.2 6.0 - 8.0 g/dL LAB CHEMISTRY METHOD 06/27/2024 1:[address] [facility] Albumin 2.8(L) 3.2 - 5.0 g/dL LAB CHEMISTRY METHOD 06/27/2024 1:[address] [facility] Total Bilirubin 0.3 0.0 - 1.4 mg/dL LAB CHEMISTRY METHOD 06/27/2024 1:[address] [facility] Blood Venous blood specimen / Unknown Venipuncture / Unknown 06/27/2024 9:15 AM EST 06/27/2024 10:57 AM EST us Lennie Aviles MD LAB BLOOD ORDERABLES Fin al Result [facility] [address] [place] [address], * (ABNORMAL) Urinalysis with reflex microscopic (06/11/2024 11:00 AM EST) Specific [place] Urine 1.015 1.003 - 1.030 LAB URINALYSIS - AUTOMATED METHOD 06/11/2024 12:[address] [facility] pH, Urine 6.0 5.0 - 8.0 pH LAB URINALYSIS - AUTOMATED METHOD 06/11/2024 12:[address] [facility] Leukocytes, Urine Trace(A) Negative LAB URINALYSIS - AUTOMATED METHOD 06/11/2024 12:[address] [facility] Nitrite, Urine Negative Negative LAB URINALYSIS - AUTOMATED METHOD 06/11/2024 12:[address] [facility] Protein, Urine 30(A) <=Trace mg/dL LAB URINALYSIS - AUTOMATED METHOD 06/11/2024 12:[address] [facility] Glucose, Urine Negative Negative mg/dL LAB URINALYSIS - AUTOMATED METHOD 06/11/2024 12:[address] [facility] Ketones, Urine Negative Negative mg/dL LAB URINALYSIS - AUTOMATED METHOD 06/11/2024 12:[address] [facility] Urobilinogen , Urine 0.2 0.2 - 1.0 mg/dL LAB URINALYSIS - AUTOMATED METHOD 06/11/2024 12:[address] [facility] Bilirubin, Urine Negative Negative LAB URINALYSIS - AUTOMATED METHOD 06/11/2024 12:[address] [facility] Blood, Urine Large(A) Negative LAB URINALYSIS - AUTOMATED METHOD 06/11/2024 12:[address] [facility] RBC, Urine >4,000(H) 0 - 4 /HPF LAB URINALYSIS - AUTOMATED METHOD 06/11/2024 12:[address] [facility] WBC, Urine 44.7(H) 0 - 4 /HPF LAB URINALYSIS - AUTOMATED METHOD 06/11/2024 12:[address] [facility] Squamous Epithelial, Urine 0 0 - 60 /LPF LAB URINALYSIS - AUTOMATED METHOD 06/11/2024 12:[address] [facility] Bacteria, Urine Few(A) Negative /HPF LAB URINALYSIS - AUTOMATED METHOD 06/11/2024 12:[address] [facility] Hyaline Casts, Urine 1.4 0 - 3 /LPF LAB URINALYSIS - AUTOMATED METHOD 06/11/2024 12:[address] [facility] Urine Urine specimen obtained by clean catch procedure / Unknown 06/11/2024 11:00 AM EST 06/11/2024 11:58 AM EST us Lennie Aviles MD LAB URINE ORDERABLES Fin al Result [facility] [address] [place] [address], * Culture urine (06/11/2024 11:00 AM EST) Culture, Urine 10,000-49,000 CFU/mL Mixed bacterial morphotypes present suggestive of possible contamination during collection. Suggest appropriate recollection if clinically indicated. 06/13/2024 10:49 AM EST [facility] Urine Urine specimen obtained by clean catch procedure / Unknown 06/11/2024 11:00 AM EST 06/11/2024 11:58 AM EST us Lennie Aviles MD LAB MICROBIOLOGY - GENER AL ORDERABLES Final Result [facility] ([facility] [address] [place] [address], from Last 3 Months Insurance MEDICAID - [place] [facility] [place] [employer] [address] [place] [address] Care Teams Foundation Drill Operator Relationship Specialty Start Date End Date Lennie Aviles MD [address] [phone] PCP - General Family Medicine 06/12/24
--- OUTSIDE RECORDS SUMMARY | 2024-09-09 13:00 | XMS_ITS | Encounter Summary ---
Author Organization [facility] Address [address] [place] [address] Care Team Providers Care Pourer Buggy Ladle Name Role Phone Lennie Aviles MD Primary Care Provider + Encounter Details Date Type Department Care Team (Late st Contact Info) Description 06/03/2024 Lab Requisition [facility] - Main Lab 299 [facility] [place] [address] Lennie Aviles MD [address] [phone] Essential (primary) hypertension Social History Tobacco Use [...] LAB CHEMISTRY METHOD 06/06/2024 10:51 AM EST [facility] Potassium 4.3 3.5 - 5.5 mmol/L LAB CHEMISTRY METHOD 06/06/2024 10:51 AM EST [facility] Chloride 100 96 - 110 mmol/L LAB CHEMISTRY METHOD 06/06/2024 10:51 AM [facility] CO2 31 21 - 32 mmol/L LAB CHEMISTRY METHOD 06/06/2024 10:51 AM [facility] Anion Gap 8 3 - 11 LAB CHEMISTRY METHOD 06/06/2024 10:51 AM [facility] Glucose 153(H) 70 - 100 mg/dL LAB CHEMISTRY METHOD 06/06/2024 10:51 AM [facility] BUN 20 5 - 25 mg/dL LAB CHEMISTRY METHOD 06/06/2024 10:51 AM [facility] Creatinine 0.98 0.70 - 1.30 mg/dL LAB CHEMISTRY METHOD 06/06/2024 10:51 AM [facility] eGFR 76 >=60 mL/min/1. 73m2 LAB CHEMISTRY METHOD 06/06/2024 10:51 AM [facility] Comment:Calculation based on the??Chronic Kidney Disease Epidemiology Collaboration (CKD-EPI) equation refit??without adjustment for race. BUN/Creatinine Ratio 20.4 LAB CHEMISTRY METHOD 06/06/2024 10:51 AM [facility] Calcium 8.6 8.5 - 10.5 mg/dL LAB CHEMISTRY METHOD 06/06/2024 10:51 AM [facility] AST (SGOT) 37 10 - 42 unit/L LAB CHEMISTRY METHOD 06/06/2024 10:51 AM [facility] ALT (SGPT) 41 10 - 60 unit/L LAB CHEMISTRY METHOD 06/06/2024 10:51 AM [facility] Alkaline Phosphatase 71 42 - 121 unit/L LAB CHEMISTRY METHOD 06/06/2024 10:51 AM [facility] Total Protein 6.4 6.0 - 8.0 g/dL LAB CHEMISTRY METHOD 06/06/2024 10:51 AM [facility] Albumin 2.8(L) 3.2 - 5.0 g/dL LAB CHEMISTRY METHOD 06/06/2024 10:51 AM [facility] Total Bilirubin 0.3 0.0 - 1.4 mg/dL LAB CHEMISTRY METHOD 06/06/2024 10:51 AM [facility] Blood Venous blood specimen / Unknown Venipuncture / Unknown 06/06/2024 7:36 AM EST 06/06/2024 9:38 AM EST us Lennie Aviles MD LAB BLOOD ORDERABLES Fin al Result [facility] [address] [place] [address], * (ABNORMAL) Complete blood count (06/06/2024 7:36 AM EST) WBC 12.6(H) 4.8 - 10.8 K/mcL LAB HEMETOLOGY METHOD 06/06/2024 10:28 AM [facility] RBC 4.20(L) 4.50 - 5.50 M/mcL LAB HEMETOLOGY METHOD 06/06/2024 10:28 AM [facility] Hemoglobin 12.0(L) 13.5 - 17.5 g/dL LAB HEMETOLOGY METHOD 06/06/2024 10:28 AM [facility] Hematocrit 38.3(L) 42.0 - 54.0 % LAB HEMETOLOGY METHOD 06/06/2024 10:28 AM [facility] MCV 90.3 79.0 - 98.0 FL LAB HEMETOLOGY METHOD 06/06/2024 10:28 AM [facility] MCH 28.3 27.0 - 32.0 pcg LAB HEMETOLOGY METHOD 06/06/2024 10:28 AM [facility] MCHC 31.3(L) 32.0 - 37.0 g/dL LAB HEMETOLOGY METHOD 06/06/2024 10:28 AM EST [facility] RDW 13.1 11.0 - 15.0 % LAB HEMETOLOGY METHOD 06/06/2024 10:28 AM EST [facility] Platelets 330 130 - 400 K/mcL LAB HEMETOLOGY METHOD 06/06/2024 10:28 AM EST [facility] MPV 10.5 7.0 - 11.0 FL LAB HEMETOLOGY METHOD 06/06/2024 10:28 AM EST [facility] NRBC 0.0 <1.0 % LAB HEMETOLOGY METHOD 06/06/2024 10:28 AM [facility] NRBC Absolute 0.00 <0.10 K/mcL LAB HEMETOLOGY METHOD 06/06/2024 10:28 AM [facility] Blood Venous blood specimen / Unknown Venipuncture / Unknown 06/06/2024 7:36 AM EST 06/06/2024 9:37 AM EST us Lennie Aviles MD LAB BLOOD ORDERABLES Fin al Result [facility] [address] [place] [address], documented in this encounter Visit Diagnoses Diagnosis Essential (primary) hypertension Unspecified essential hypertension documented in this encounter Care Teams Pourer Buggy Ladle Relationship Specialty Start Date End Date Lennie Aviles MD [address] [place] [id number] PCP - General Family Medicine 06/12/24 documented as of this encounter
--- OUTSIDE RECORDS SUMMARY | 2024-09-09 13:00 | XMS_ITS | Encounter Summary ---
Author Organization [facility] Address [id number] [place] [address] Care Team Providers Care Instructional Technology Teacher Name Role Phone Elder, Lennie Trammell MD Primary Care Provider + Encounter Details Date Type Department Care Team (Late st Contact Info) Description 07/18/[address] [facility] - Main Lab 299 [facility] [address] Beau Ramachandran MD [address] [place] [address] Essential (primary) hypertension; Atherosclerotic heart disease of [place] coronary artery without angina pectoris; Benign prostatic hyperplasia without lower urinary tract symptoms; Acute embolism and thrombosis of unspecified deep veins of unspecified lower extremity (CMS/HCC V24, CMS/HCC V28) Social History Tobacco [...] Essential (primary) hypertension Atherosclerotic heart disease of [place] coronary artery without angina pectoris Benign prostatic hyperplasia without lower urinary tract symptoms Acute embolism and thrombosis of unspecified deep veins of unspecified lower extremity (CMS/HCC) BASIC METABOLIC PANEL Routine 07/18/2024 4:53 AM EST Essential (primary) hypertension Atherosclerotic heart disease of [place] coronary artery without angina pectoris Benign prostatic hyperplasia without lower urinary tract symptoms Acute embolism and thrombosis of unspecified deep veins of unspecified lower extremity (CMS/HCC) documented in this encounter Results * (ABNORMAL) Basic metabolic panel (07/18/2024 4:53 AM EST) Sodium 141 133 - 145 mmol/L LAB CHEMISTRY METHOD 07/18/2024 2:56 PM [facility] Potassium 4.7 3.5 - 5.5 mmol/L LAB CHEMISTRY METHOD 07/18/2024 2:56 PM [facility] Chloride 103 96 - 110 mmol/L LAB CHEMISTRY METHOD 07/18/2024 2:56 PM [facility] CO2 29 21 - 32 mmol/L LAB CHEMISTRY METHOD 07/18/2024 2:56 PM [facility] Anion Gap 9 3 - 11 LAB CHEMISTRY METHOD 07/18/2024 2:56 PM [facility] Glucose 119(H) 70 - 100 mg/dL LAB CHEMISTRY METHOD 07/18/2024 2:56 PM [facility] BUN 34(H) 5 - 25 mg/dL LAB CHEMISTRY METHOD 07/18/2024 2:56 PM [facility] Creatinine 1.17 0.70 - 1.30 mg/dL LAB CHEMISTRY METHOD 07/18/2024 2:56 PM [facility] eGFR 61 >=60 mL/min/1. 73m2 LAB CHEMISTRY METHOD 07/18/2024 2:56 PM [facility] Comment:Calculation based on the??Chronic Kidney Disease Epidemiology Collaboration (CKD-EPI) equation refit??without adjustment for race. BUN/Creatinine Ratio 29.1 LAB CHEMISTRY METHOD 07/18/2024 2:56 PM [facility] Calcium 9.2 8.5 - 10.5 mg/dL LAB CHEMISTRY METHOD 07/18/2024 2:56 PM [facility] Blood Venous blood specimen / Unknown Venipuncture / Unknown 07/18/2024 4:53 AM EST 07/18/2024 11:18 AM EST us Beau Ramachandran MD LAB BLOOD ORDERABLES Final R esult [facility] [address] [place] [address], * (ABNORMAL) Complete blood count (07/18/2024 4:53 AM EST) WBC 10.8 4.8 - 10.8 K/mcL LAB HEMETOLOGY METHOD 07/18/2024 2:19 PM [facility] RBC 4.20(L) 4.50 - 5.50 M/mcL LAB HEMETOLOGY METHOD 07/18/2024 2:19 PM [facility] Hemoglobin 11.5(L) 13.5 - 17.5 g/dL LAB HEMETOLOGY METHOD 07/18/2024 2:19 PM [facility] Hematocrit 38.2(L) 42.0 - 54.0 % LAB HEMETOLOGY METHOD 07/18/2024 2:19 PM [facility] MCV 90.3 79.0 - 98.0 FL LAB HEMETOLOGY METHOD 07/18/2024 2:19 PM [facility] MCH 27.2 27.0 - 32.0 pcg LAB HEMETOLOGY METHOD 07/18/2024 2:19 PM [facility] MCHC 30.1(L) 32.0 - 37.0 g/dL LAB HEMETOLOGY METHOD 07/18/2024 2:19 PM [facility] RDW 13.6 11.0 - 15.0 % LAB HEMETOLOGY METHOD 07/18/2024 2:19 PM [facility] Platelets 397 130 - 400 K/mcL LAB HEMETOLOGY METHOD 07/18/2024 2:19 PM [facility] MPV 10.8 7.0 - 11.0 FL LAB HEMETOLOGY METHOD 07/18/2024 2:19 PM EST [facility] NRBC 0.0 <1.0 % LAB HEMETOLOGY METHOD 07/18/2024 2:19 PM EST [facility] NRBC Absolute 0.00 <0.10 K/mcL LAB HEMETOLOGY METHOD 07/18/2024 2:19 PM EST [facility] Blood Venous blood specimen / Unknown Venipuncture / Unknown 07/18/2024 4:53 AM EST 07/18/2024 11:18 AM EST us Beau Ramachandran MD LAB BLOOD ORDERABLES Final R esult [facility] [address] [place] [address], documented in this encounter Visit Diagnoses Diagnosis Essential (primary) hypertension Unspecified essential hypertension Atherosclerotic heart disease of [place] coronary artery without angina pectoris Benign prostatic hyperplasia without lower urinary tract symptoms Acute embolism and thrombosis of unspecified deep veins of unspecified lower extremity (CMS/HCC V24, CMS/HCC V28) documented in this encounter Care Teams Instructional Technology Teacher Relationship Specialty Start Date End Date Lennie Aviles MD [address] [place] [phone] PCP - General Family Medicine 06/12/24 documented as of this encounter
--- OUTSIDE RECORDS SUMMARY | 2024-09-09 13:00 | XMS_ITS | Encounter Summary ---
Author Organization [facility] Address [address] [place] [phone] Care Team Providers Care Roofing Subcontractor Name Role Phone Lennie Aviles MD Primary Care Provider + Encounter Details Date Type Department Care Team (Late st Contact Info) Description 07/03/2024 Lab Requisition [facility] - Main Lab 299 [facility] [place] [address] Lennie Aviles MD [address] [phone] Essential (primary) hypertension Social History Tobacco Use [...] hypertension documented in this encounter Care Teams Roofing Subcontractor Relationship Specialty Start Date End Date Lennie Aviles MD [address] [place] [phone] PCP - General Family Medicine 06/12/24 documented as of this encounter
--- NOTE | 2024-09-09 13:15 | MHC.OFFWIV ---
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 - Symptom onset was about one week before the consultation, with a progressive worsening of the condition. - Unclear how he sustained the cut on his left ankle, admits it does feel warm, denies fevers. - The patient recalls no specific incident causing the cut, indicating a possible unnoticed minor trauma. - Relevant medical history includes bilateral lower extremity edema managed with diuretics administered twice daily. - The patient reports no allergies to antibiotics and has no history of diabetes or methicillin-resistant Staphylococcus aureus (MRSA) infection. Physical Exam General: Cooperative, healthy appearing, comfortable, no acute distress and well developed Orientation: Patient oriented x3 Limitations: wearing O2, in wheelchair Head: Normal to inspection Ears: Hearing grossly normal bilaterally Nose: Normal External nose present Face and sinus: Normal facial exam Eyes: Appearance normal, both eyes and all related structures Neck: Normal visual inspection and Yes full ROM Respiratory: Normal respiratory effort and able to speak in complete sentences. Skin: see below Neuro: Patient oriented x3 Extremities: non pitting edema R>L BL LE, left lateral ankle has 0.5cm superficial wound, healing with scab surrounded by 2cm circumferential area of erythema and warmth. [facility] Medical History Presence of prosthetic heart valve Aortic stenosis Bacteriuria Congestive heart disease Chronic lung disease Chronic respiratory failure Pre-op chest exam Inferior NE Pneumonitis Pulmonary nodules BPH (benign prostatic hyperplasia) COPD (chronic obstructive pulmonary disease) Pneumonia HTN (hypertension) Surgical History S/P cardiac catheterization History of carpal tunnel surgery of right wrist Hx of cardiac cath Family History Mother CAD (coronary artery disease) Heart attack Father HTN (hypertension) Brother H/O heart bypass surgery Sister Afib Social History Household Members: Spouse and Family Housing: House Do you presently have visiting nurse or other home services: Yes (1x week) Alcohol intake: former Patient Tobacco Use Status: Former Tobacco user Tobacco use type: Cigarette e-Cigarette/Vaping Use: Never Used Second Hand Smoke Exposure: Yes (family smokes in the house) Advance Directives Date on File: 08/18/23 service: No Current occupational status: retired Physical Exam Vital Signs: Last Vital Signs Temp 97.4 F 09/09/24 13:19 Pulse 79 09/09/24 13:19 Resp 16 09/09/24 13:19 BP 112/64 09/09/24 13:19 Pulse Ox 89 L 09/09/24 13:19 Oxygen Delivery Method Nasal Cannula 09/09/24 13:19 BMI result Body Mass Index 29.1 Assessment & Plan Assessment & Plan (1) Cellulitis: Code(s): L03.90 - Cellulitis, unspecified Qualifiers: Site of cellulitis: extremity Site of cellulitis of extremity: lower extremity Laterality: left Qualified Code(s): L03.116 - Cellulitis of left lower limb Plan: I determined the presence of cutaneous cellulitis attributable to a superficial ankle wound. Keflex, an oral antibiotic, was prescribed to manage the infection effectively. The patient was instructed to take the medication every six hours for a week and to use Aquaphor ointment on the ankle if desired to support the healing process by maintaining skin moisture. I advised monitoring the condition's progression closely. If symptoms persist or worsen, a follow-up may be necessary to modify the treatment plan, potentially augmenting therapy with a second antibiotic. The patient, having no known allergies to antibiotics, should experience favorable treatment outcomes with this regimen. Patient was informed and verbally consented to the use of an ambient scribe for clinic note documentation during this visit. Medications: New cephalexin 500 mg PO Q6H 28 caps 0RF Coding Level of Care Code New Pt Level 3 (61097) Diagnoses Cellulitis of left lower extremity L03.116 Site of cellulitis: extremity Site of cellulitis of extremity: lower extremity Laterality: left
[2024-09-09 13:19] VITALS: BP 112/64; PULSE 79; RESP 16; TEMP 36.3; O2SAT 89; BMI 29.1
== END 2024-09-09 14:04 | disposition home or self-care (01) ==
PROVIDERS: PCP Internal Medicine; Visit Provider Physician Assistant
DX: L03.116 Cellulitis of left lower limb (principal)

== ENCOUNTER → 2024-09-09 12:10 | Outpatient (BNVA) | payer MEDICARE, MEDICAID, SELFPAY | PROVIDERS: PCP Internal Medicine; Visit Provider Physician Assistant | DX: L03.116 Cellulitis of left lower limb (principal) | CPT/HCPCS: 99212 ==

== ENCOUNTER 2024-12-05 15:25 | Outpatient (AMB) | payer MEDICARE, MEDICAID, SELFPAY ==
[2024-12-05 15:36] VITALS: BP 96/46; PULSE 79; O2SAT 96
--- NOTE | 2024-12-05 15:36 | MHC.OFFVIS ---
Vital Signs 12/05/24 15:36 Height 5 ft 5 in BMI Reason not done Patient refused/unable BP 96/46 L Blood Pressure Location Lt brachial Position Sitting Pulse 79 Pulse Source Pulse Oximeter Pulse Oximetry (%) 96 Oxygen Delivery Method Room Air Intake Visit Reasons: copd Consumer Experience Consultant Required: No Accompanied by: Self / Same As Patient Allergies ibuprofen Allergy (Mild, Verified 12/05/24 15:45) Gastrointestinal Upset HPI Comments Details: 84 year-old gentleman who is here for follow-up. He has background history of coronary artery disease. He presented to us at [facility] with mild NSTEMI in the setting of COPD exacerbation with ST depressions. After discussion he was taken for cardiac catheterization which showed DIRECTOR CLINICAL RESEARCH of the right coronary artery with [id number] collaterals and ostial diagonal stenosis. We decided to medically manage him. He has advanced lung disease due to COPD. He is saying he is doing better with inhalers and medications. He has bilateral lower extremity edema. He also has some shoulder issues and will require surgery in 1 month. He is complaining that he has been off balance a lot and tends to fall to the right side of the body. 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 He is saying he consistently falls right-sided. He has been using a cane to walk. 04/15/2022 the patient is here for a pulmonary follow-up visit. The patient will be undergoing a hip surgery soon. He is going to require total hip replacement. This will be done at [facility]. In the meantime is respiratory status is at baseline. He does have some shortness breath with activity mild to moderate with severity. The patient does use a cane and he does get some fatigue just because is also dealing with this musculoskeletal issues. Today need to get an x-ray in therefore we did get him a wheelchair for the duration of the ambulation. He does continue to uses inhalers as prescribed. He does have Trelegy that he uses in the morning and then a rescue inhaler to use as needed. The patient is complaining of some chest discomfort coming and going. Currently he does not have it. As far as his respiratory exam is benign. He does not have any reproducible discomfort. Will have him get a chest x-ray to make sure that all is well. He will be following up with Cardiology soon. He does have a cardiac history. The patient is aware that if the chest pain returns of her worsens he is to go to the ED or seek medical attention. 10/15/2022 the patient is here for pulmonary follow-up visit. Since we last spoke he did develop a respiratory illness in a COPD exacerbation. He sized primary care doctor who placed on prednisone and a course of Z-Edward. The patient improved although he has symptoms then started reoccurring. Does have increased chest congestion. He had been on azithromycin in the past and that was helpful for him. Therefore will which started for another 4-8 weeks to see if we can get his lungs a little bit more clear. The patient has been using his respiratory therapy as prescribed. 12/23/2022 the patient is here for pulmonary sick visit. He is having worsening chest discomfort shortness of breath and cough. He has been using his inhalers with only partial resolution of the symptoms. He is also concerned because he feels very weak. Today in the office was noted to have significant wheezing chest tightness. His also cough is productive at times. The patient was given a treatment with DuoNeb and he did feel better. He did have a brief 6 minute walk test the patient did desaturate very quickly to 88% with just a few steps. He was placed on 2 L pulse and did well maintaining a pulse ox 92%. Therefore he needs to start oxygen at this time. Patient also will undergo blood work and a chest x-ray at this time. He will start antibiotics and prednisone. If the patient is no better or if he worsens he definitely has to go to the hospital for further care. In the meantime is a follow-up in a couple weeks. 01/08/2023 the patient is here for pulmonary follow-up visit. During the last visit he was fairly sick he was started on oxygen. The patient completed the prednisone and now the antibiotics. Now complaining of significant sore throat. Feels very dry. She has significant thrush this time. May have some Dayna esophagitis since he has also some discomfort swallowing. Will go ahead and start him on fluconazole. Since we last spoke the patient did have blood work including an elevated troponin I. I did call him and told him to go to the ER which she did. Not clear which ER he went to. 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 For the most part the cardiac issues are likely secondary to the demand from his respiratory process. His chest x-ray also looked that and was fairly unremarkable. The patient has been using the oxygen with good effect. Also been using the Trelegy. It is also feeling better overall. 04/10/2023 the patient is here for a pulmonary follow-up visit. Has not been complaining of worsening shortness of breath and chest tightness. He has been using his in haler once or twice a day. Only with partial improvement of his symptoms. He has been using his oxygen more regularly. On examination he does have increased wheezing chest tightness along with a prolonged expiratory phase. He is already on Trelegy. He is already tried azithromycin. I do believe Daliresp will be a good option for him. Although we did talk about the GI symptoms that can occur. The patient can always start small dose and see to take it slowly titrating it up to minimize on the adverse effects. Patient also will need some prednisone to help him with this amount of wheezing. If the patient is no better after the prednisone or if he can not tolerate the Daliresp she should call the office for an earlier assessment otherwise will follow-up in 3-4 months. 08/13/2023 the patient is here for a pulmonary follow-up visit. He continues on the Trelegy inhaler. Appears to be affecting beneficial. Still has some dyspnea on exertion. Rrtw-ja-ikulmdec severity. Mainly with activity. Does get better with rest. The last visit he did have an exacerbation. He has not had any need for additional antibiotics and prednisone since we last spoke. Will plan to request PFTs for his next visit. We also did review his last chest x-ray from December 2022. Demonstrated some volume overload status. No overt heart failure. He knows to be careful with his sodium intake And also taking the diuretic. 02/16/2024 the patient is here for a pulmonary follow-up visit. He has had a very eventful few months. Since we last spoke to him he did follow-up with Cardiology. He was evaluated for the aortic stenosis. The patient underwent a heart catheterization. Found to have some coronary artery disease. Appears to have a moderate stenosis of the OM 1. In addition to that 100% obstruction of the right coronary artery which is chronic. Other mild disease noted. The patient underwent a trans vascular aortic valve replacement apparently without any complications initially. 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 He was treated with anticoagulation. He was evaluated at [facility] I do not have any imaging reports from [facility] to be able to comment on as far as if he develops any pulmonary emboli. But right now he is being treated with the anticoagulation. He did developing worsening cough chest congestion. Also developed some chest tightness and wheezing. On examination does have some rhonchi and wheezing consistent with a COPD exacerbation. Therefore will go ahead and treat him for that. Of note the patient also mentioned that he is having episodic chest pain pressure sensation [id number] severity. Sometimes the symptoms last for 5 to 15 minutes. He does have nitroglycerin although he has never used it. Right now the patient has not told anybody. I did tell him to go to the ER the next time happens he does not have any chest pain right now. Also did advise him to take the nitroglycerin. He will undergo blood work today. If his troponin is elevated then he should therefore be evaluated for that. 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 If he develops any further chest pain he may need to go the hospital as well to have that further evaluated. 04/28/2024 the patient is here for a pulmonary follow-up visit. The patient is getting more frail. He has had some falls hurting himself resulting in some swelling of his extremities and ecchymosis specially since he is on the blood thinners. The patient is here with his daughter now and he is on a wheelchair. The patient does have oxygen at home and needs to make sure that he uses it with activity and also sleep. She sometimes can take it off at rest as long as he is being monitored by somebody else. He needs to make sure that his oxygen levels day about 90%. In the meantime the patient has been having issues with chest congestion. We did review his last imaging study and his last chest x-ray was reassuring he was able to expand his lungs although he does have some degree of ineffective cough. Does have evidence of chronic bronchitis. Therefore will start her on azithromycin 3 times a week. He is going to follow-up next month with Cardiology and have an EKG. And he will continue with his current respiratory regimen. 12/05/2024 the patient is here for a pulmonary follow-up visit. Overall he is doing better from a respiratory status. Unfortunately continues have issues with his chronic pain and risk for falls. He is using walker right now. Otherwise he was with a wheelchair during the last visit. So he is doing a little bit better. The oxygen therapy has been affecting beneficial. No recent imaging to review. His cough is overall better. Will follow with current respiratory regimen at this time. Follow-up in 6-8 months. [facility] Medical History Presence of prosthetic heart valve Aortic stenosis Bacteriuria Congestive heart disease Chronic lung disease Chronic respiratory failure Pre-op chest exam Inferior MS Pneumonitis Pulmonary nodules BPH (benign prostatic hyperplasia) COPD (chronic obstructive pulmonary disease) Pneumonia HTN (hypertension) Surgical History S/P cardiac catheterization History of carpal tunnel surgery of right wrist Hx of cardiac cath Family History Mother CAD (coronary artery disease) Heart attack Father HTN (hypertension) Brother H/O heart bypass surgery Sister Afib Social History Household Members: Spouse and Family Housing: House Do you presently have visiting nurse or other home services: Yes (1x week) Alcohol intake: former Patient Tobacco Use Status: Former Tobacco user Tobacco use type: Cigarette e-Cigarette/Vaping Use: Never Used Second Hand Smoke Exposure: Yes (family smokes in the house) Advance Directives Date on File: 08/18/23 service: No Current occupational status: retired Review of Systems Const Reports fatigue, Reports frequent falls, Denies malaise, Denies night sweats and Reports weight loss ENT Denies change in voice, Denies lip swelling, Denies mouth pain, Denies nasal congestion, Denies nasal discharge and Denies tongue swelling Card Reports chest pain, Reports dyspnea and Reports dyspnea on exertion Resp Denies change in phlegm color, Reports chest congestion, Reports cough, Denies hemoptysis, Denies excessive phlegm production, Reports dyspnea, Reports dyspnea on exertion and Reports wheezing GI Denies abdominal pain Musc Reports no additional complaints, Reports as per HPI, Reports abnormal gait, Reports arthralgias, Reports joint swelling and Reports muscle weakness Neuro Reports as per HPI, Reports abnormal gait and Reports frequent falls Psych Denies no additional complaints and Reports other (hyper-sexual) Endo Reports fatigue Marco/Lymph Denies easy bleeding and Denies lymphadenopathy Aller/Immun Denies lip swelling, Denies tongue swelling and Reports wheezing Physical Exam Vital Signs: Last Vital Signs Pulse 79 12/05/24 15:36 BP 96/46 L 12/05/24 15:36 Pulse Ox 96 12/05/24 15:36 Oxygen Delivery Method Room Air 12/05/24 15:36 Const General: alert HEENT Head: Yes normocephalic Neck Neck: Yes normal visual inspection, Yes full ROM and Yes no lymphadenopathy Chest Chest palpation & inspection: normal inspection of the chest Resp Effort & Inspection: normal respiratory effort and prolonged expiratory phase Auscultation: no rhonchi and diminished lung sounds Cardio Rate: regular rate Rhythm: regular rhythm Heart sounds: S1 normal heart sound present and S2 normal heart sound present GI Palpation (GI): Soft to palpation and Tenderness to palpation present (GI) in the epigastrum Auscultation: normal bowel sounds Skin General skin exam: rashes and/or lesions noted Extrem General: Yes no clubbing, cyanosis or edema Assessment & Plan Assessment & Plan (1) Dyspnea on exertion: Code(s): R06.00 - Dyspnea, unspecified Category: Medical (2) COPD (chronic obstructive pulmonary disease): Comment: severe COPD Code(s): J44.9 - Chronic obstructive pulmonary disease, unspecified Category: Medical Qualifiers: COPD type: COPD with acute exacerbation Qualified Code(s): J44.1 - Chronic obstructive pulmonary disease with (acute) exacerbation (3) Pneumonitis: Code(s): J18.9 - Pneumonia, unspecified organism Category: Medical (4) Chronic respiratory failure: Code(s): J96.10 - Chronic respiratory failure, unspecified whether with hypoxia or hypercapnia Category: Medical Qualifiers: Respiratory failure complication: hypoxia Qualified Code(s): J96.11 - Chronic respiratory failure with hypoxia Plan continue oxygen 2L/pulse 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
--- OUTSIDE RECORDS SUMMARY | 2024-12-05 16:38 | XMS_ITS | Encounter Summary ---
Author Organization [facility] Address [address] [place] [address] Care Team Providers Care Warehouse Helper Name Role Phone Lennie Aviles MD Primary Care Provider + Encounter Details Date Type Department Care Team (Late st Contact Info) Description 06/11/[address] [facility] Lab [address] [facility] [place] [address] Lennie Aviles MD [address] [id number] Frequency of micturition Social History Tobacco Use [...] reflex microscopic (06/11/2024 11:00 AM EST) Specific [place] Urine 1.015 1.003 - 1.030 LAB URINALYSIS - AUTOMATED METHOD 06/11/2024 12:55 PM EST [facility] pH, Urine 6.0 5.0 - 8.0 pH LAB URINALYSIS - AUTOMATED METHOD 06/11/2024 12:55 PM [facility] Leukocytes, Urine Trace(A) Negative LAB URINALYSIS - AUTOMATED METHOD 06/11/2024 12:55 PM [facility] Nitrite, Urine Negative Negative LAB URINALYSIS - AUTOMATED METHOD 06/11/2024 12:55 PM [facility] Protein, Urine 30(A) <=Trace mg/dL LAB URINALYSIS - AUTOMATED METHOD 06/11/2024 12:55 PM [facility] Glucose, Urine Negative Negative mg/dL LAB URINALYSIS - AUTOMATED METHOD 06/11/2024 12:55 PM [facility] Ketones, Urine Negative Negative mg/dL LAB URINALYSIS - AUTOMATED METHOD 06/11/2024 12:55 PM [facility] Urobilinogen , Urine 0.2 0.2 - 1.0 mg/dL LAB URINALYSIS - AUTOMATED METHOD 06/11/2024 12:55 PM [facility] Bilirubin, Urine Negative Negative LAB URINALYSIS - AUTOMATED METHOD 06/11/2024 12:55 PM [facility] Blood, Urine Large(A) Negative LAB URINALYSIS - AUTOMATED METHOD 06/11/2024 12:55 PM [facility] RBC, Urine >4,000(H) 0 - 4 /HPF LAB URINALYSIS - AUTOMATED METHOD 06/11/2024 12:55 PM [facility] WBC, Urine 44.7(H) 0 - 4 /HPF LAB URINALYSIS - AUTOMATED METHOD 06/11/2024 12:55 PM [facility] Squamous Epithelial, Urine 0 0 - 60 /LPF LAB URINALYSIS - AUTOMATED METHOD 06/11/2024 12:55 PM [facility] Bacteria, Urine Few(A) Negative /HPF LAB URINALYSIS - AUTOMATED METHOD 06/11/2024 12:55 PM EST [facility] Hyaline Casts, Urine 1.4 0 - 3 /LPF LAB URINALYSIS - AUTOMATED METHOD 06/11/2024 12:55 PM [facility] Urine Urine specimen obtained by clean catch procedure / Unknown 06/11/2024 11:00 AM EST 06/11/2024 11:58 AM EST Lennie Aviles MD LAB URINE ORDERABLES Fin al Result Performing Organization Address [facility]/ZIP Co de Phone Number [facility] [address] [place] [address], [place] [phone] * Culture urine (06/11/2024 11:00 AM EST) Culture, Urine 10,000-49,000 CFU/mL Mixed bacterial morphotypes present suggestive of possible contamination during collection. Suggest appropriate recollection if clinically indicated. 06/13/2024 10:49 AM [facility] Urine Urine specimen obtained by clean catch procedure / Unknown 06/11/2024 11:00 AM EST 06/11/2024 11:58 AM EST Lennie Aviles MD LAB MICROBIOLOGY - GENER AL ORDERABLES Final Result Performing Organization Address [facility]/ZIP Co de Phone Number [facility] [address] [place] [address], [place] [phone] documented in this encounter Visit Diagnoses Diagnosis Frequency of micturition Urinary frequency documented in this encounter Care Teams Warehouse Helper Relationship Specialty Start Date End Date Lennie Aviles MD [address] [place] [id number] PCP - General Family Medicine 06/12/24 documented as of this encounter
== END 2024-12-05 16:16 | disposition home or self-care (01) ==
LOC: HO.HPS 15:26
PROVIDERS: PCP Internal Medicine; Visit Provider Hospitalist
DX: J44.1 Chronic obstructive pulmonary disease with (acute) exacerbation (principal); J18.9 Pneumonia, unspecified organism; J96.11 Chronic respiratory failure with hypoxia
CPT/HCPCS: 99214

== ENCOUNTER → 2024-12-05 15:25 | Outpatient (BNVA) | payer MEDICARE, MEDICAID, SELFPAY | PROVIDERS: PCP Internal Medicine; Visit Provider Hospitalist | DX: J44.1 Chronic obstructive pulmonary disease with (acute) exacerbation (principal); J18.9 Pneumonia, unspecified organism; J96.11 Chronic respiratory failure with hypoxia | CPT/HCPCS: 99212 ==

== ENCOUNTER 2025-03-18 05:17 | Emergency (ER) | payer MEDICARE, MEDICAID, SELFPAY ==
[2025-03-18 05:34] VITALS: BP 118/86; BP 120/64; PULSE 74; PULSE 76; RESP 22; TEMP 36.8; O2SAT 95; O2SAT 97; BMI 34.4
--- NOTE | 2025-03-18 05:38 | ED.GENADULT ---
HPI - General Adult General Chief complaint: Urogenital-Male Stated complaint: possible dislodged catheter Time Seen by Provider: 03/18/25 05:28 Source: patient and EMS Mode of arrival: EMS Limitations: no limitations History of Present Illness ED Provider: Dr. Lisa Castelan HPI narrative: Patient comes to the emergency room stating that his Bhatia catheter is not draining properly. Patient states that a few days ago he had a suprapubic Bhatia placed, and until it heals, they lift a regular Bhatia catheter in. Patient states that he had his Bhatia catheter changed 2 days ago and now it is not draining properly. Denies fever chills. Related Data Home Medications ?Medication ?Instructions ?Recorded ?Confirmed atenolol 25 mg tablet 25 mg PO DAILY 06/19/20 07/08/24 aspirin 81 mg tablet,delayed 81 mg PO DAILY 11/19/20 07/08/24 release pantoprazole 20 mg tablet,delayed 20 mg PO DAILY@0630 11/19/20 07/08/24 release (Protonix) fluticasone propionate 50 1 spray intranasal DAILY Congestion 02/12/21 07/08/24 mcg/actuation nasal spray,suspension oxycodone-acetaminophen 5 mg-325 1 tab PO QID PRN Pain (Scale Score 02/12/21 07/08/24 mg tablet 1-3) nebulizers 10/15/22 02/23/24 Oxygen Home Use 01/08/23 02/23/24 gabapentin 100 mg capsule 200 mg PO TID 04/10/23 07/08/24 albuterol sulfate 90 mcg/actuation 2 puff inhalation QID PRN SOB 12/18/23 07/08/24 aerosol inhaler furosemide 20 mg tablet 20 mg PO DAILY 02/16/24 07/08/24 acetaminophen 325 mg tablet 650 mg PO Q6H PRN Fever Or Pain 04/03/24 07/08/24 amlodipine 10 mg tablet 10 mg PO DAILY 04/03/24 07/08/24 Previous Rx's ?Medication ?Instructions ?Recorded isosorbide mononitrate 60 mg 60 mg PO DAILY #90 tabs 12/14/23 tablet,extended release 24 hr finasteride 5 mg tablet (Proscar) 5 mg PO DAILY #90 tabs 07/11/24 tamsulosin 0.4 mg capsule (Flomax) 0.4 mg PO BEDTIME #90 caps 07/11/24 albuterol sulfate 2.5 mg/3 mL 2.5 mg (3 mL) inhalation Q6H PRN 03/10/25 (0.083 %) solution for nebulization for dyspnea #180 mL Allergies Allergy/AdvReac Type Severity Reaction Status Date / Time ibuprofen Allergy Mild Gastrointestinal Verified 03/18/25 05:37 Upset Review of Systems Review of Systems: Constitutional : No Weight loss, No Fever, No Chills, No Night Sweats, No Fatigue, No Malaise ENT/Mouth : No Hearing loss, No Ear Pain, No Nasal Congestion, No Sinus Pain, No Hoarseness, No sore throat, No Rhinorrhea, No Swallowing Difficulty Eyes: No Eye Pain, No Swelling, No Redness, No Foreign Body, No Discharge, No Vision Changes Cardiovascular : No Chest Pain, No SOB, No Dyspnea on Exertion, No Orthopnea, No Edema, No Palpitations Respiratory : No Cough, No Sputum, complaining of chronic intermittent Wheezing, No Smoke Exposure, No Dyspnea Gastrointestinal : No Nausea, No Vomiting, No Diarrhea, No Constipation, No abdominal Pain, No Hematochezia, No Melena Genitourinary : Complaining of Bhatia catheter is function, No Dysuria, No Urinary Frequency, No Hematuria, No Urinary Incontinence, No Urgency, No Flank Pain, No Urinary Flow Changes, No Hesitancy Musculoskeletal : No joint pain, No Myalgias, No Joint Swelling Skin : No Skin Lesions, No rash Neuro : No Weakness, No Numbness, No Paresthesias, No Loss of Consciousness, No Dizziness, No Headache Psych : No Anxiety/Panic, No Depression, No SI/HI/AH/VH, No Social Issues, Heme/Lymph: No Bruising, No Bleeding,No Lymphadenopathy Endocrine : No Polyuria, No Polydipsia, No Temperature Intolerance [facility] Past Medical History Medical History Presence of prosthetic heart valve Aortic stenosis Bacteriuria Congestive heart disease Chronic lung disease Chronic respiratory failure Pre-op chest exam Inferior NE Pneumonitis Pulmonary nodules BPH (benign prostatic hyperplasia) COPD (chronic obstructive pulmonary disease) Pneumonia HTN (hypertension) Surgical History S/P cardiac catheterization History of carpal tunnel surgery of right wrist Hx of cardiac cath Family History Family History Mother CAD (coronary artery disease) Heart attack Father HTN (hypertension) Brother H/O heart bypass surgery Sister Afib Social History Social History Household Members: Spouse and Family Housing: House Do you presently have visiting nurse or other home services: Yes (1x week) Alcohol intake: former Patient Tobacco Use Status: Former Tobacco user Tobacco use type: Cigarette e-Cigarette/Vaping Use: Never Used Second Hand Smoke Exposure: Yes (family smokes in the house) Advance Directives Date on File: 08/18/23 Do you have a plan to hurt others: No Plan service: No Current occupational status: retired Physical Exam ED Exam Exam: Appearance: Alert. Oriented X3. No acute distress. Eyes: Pupils equal, round and reactive to light. ENT: Pharynx normal. Neck: Normal inspection. Neck supple. No lymph nodes noted. No crepitus CVS: Normal heart rate and rhythm. Pulses normal. Normal S1 and S2 Respiratory: No respiratory distress. Breath sounds normal. No Wheezing. No rales Abdomen: Soft and nontender. No rigidity. No distention. Suprapubic Bhatia catheter in place, no erythema or signs of cellulitis. : Bhatia catheter in place. However, it is kinked Skin: Skin warm and dry. Normal skin color. Normal skin turgor. Extremities: No lower extremity edema. No Lacerations. No Rash Neuro: Oriented X 3. No motor deficit. No sensory deficit. Moving all extremities. No slurred speech. CN 2 through 12 grossly intact Psych: calm, cooperative, normal affect Vital Signs: Vital Signs - 24 hr 03/18/25 05:34 Temperature 98.2 F Pulse Rate 76 Respiratory Rate 22 H Blood Pressure 118/86 Pulse Oximetry 97 Oxygen Delivery Method Nasal Cannula BMI result Body Mass Index 34.4 Medical Decision Making Medical Decision Making MDM Narrative: On physical exam, it was noted that patient's penile Bhatia catheter is kinked and clamped. Once we released and unclamped the catheter, the urine started flowing normal. Patient denies any hematuria dysuria or penile discomfort. Patient states that he usually gets multiple scheduled nebulization of albuterol per day for his chronic COPD, patient requesting 1 nebulization treatment prior to discharge. Patient denies any worsening coughing, increase in oxygen demand or fever or chills. Patient was given a dose of albuterol Patient's Bhatia catheter working properly Discharge Plan Discharge Clinical Impression: Obstructed Bhatia catheter Patient Disposition: Home, Self-Care Instructions: How to Change a Catheter Drainage Bag (DC) Additional Instructions: Please follow-up with your primary care physician tomorrow. If you have any worsening or new symptoms, please return to the emergency room or call 911 Prescriptions: No Action isosorbide mononitrate 60 mg tablet extended release 24 hr 60 mg PO DAILY Qty: 90 3RF albuterol sulfate 2.5 mg /3 mL (0.083 %) solution for nebulization 2.5 mg inhalation Q6H PRN (Reason: for dyspnea) Qty: 180 2RF atenolol 25 mg Tablet 25 mg PO DAILY amlodipine 10 mg tablet 10 mg PO DAILY acetaminophen 325 mg tablet 650 mg PO Q6H PRN (Reason: Fever Or Pain) tamsulosin [Flomax] 0.4 mg capsule 0.4 mg PO BEDTIME Qty: 90 0RF finasteride [Proscar] 5 mg tablet 5 mg PO DAILY Qty: 90 0RF albuterol sulfate 90 mcg/actuation HFA aerosol inhaler 2 puff inhalation QID PRN (Reason: SOB) aspirin 81 mg tablet,delayed release (DR/EC) 81 mg PO DAILY pantoprazole [Protonix] 20 mg tablet,delayed release (DR/EC) 20 mg PO DAILY@0630 gabapentin 100 mg capsule 200 mg PO TID oxycodone-acetaminophen 5-325 mg tablet 1 tab PO QID PRN (Reason: Pain (Scale Score 1-3)) fluticasone propionate 50 mcg/actuation spray,suspension 1 spray intranasal DAILY (DME) nebulizers Misc See Rx Instructions .Route Rx Instructions: As directed (DME) Oxygen Home Use Kit See Rx Instructions .Route Rx Instructions: As directed furosemide 20 mg tablet 20 mg PO DAILY Print Language: Estonian
[2025-03-18] MEDS: Albuterol Sulfate (0.083%) 2.5 MG/3 ML VIAL.NEB INHALE (05:57)
[2025-03-18 05:58] VITALS: PULSE 73; RESP 18; O2SAT 97
--- OUTSIDE RECORDS SUMMARY | 2025-03-18 06:04 | XMS_ITS | Clinical Summary ---
Author Organization [facility] Address [address] [place] [address] Phone Care Team Providers Care Clinical Trial Leader Name Role Phone Marvin Carey MD Primary Care Provider + Social History Tobacco Use Types Packs/Day Years Used Date Smoking Tobacco: Never Assessed Education Answer Date Recorded Are you interested in more education? Not on jasper e 04/06/2024 Are you concerned about learning? Not on file 04/06/2024 No 04/06/2024 No 04/06/2024 Digital Access Answer Date Recorded No 04/06/2024 No 04/06/2024 Reliable internet access at home? Not on file 04/06/2024 Device with a working camera? Not on file Sex and Gender Information Value Date Recorded Sex Assigned at Not on file Legal Sex Male 12:32 PM EST Gender Identity Not on file Sexual Orientation Not on file Plan of Treatment Not on file Medical Devices Not on file Insurance MEDICARE HMO REPLACEMENT [employer] [place] [employer] REPLACEMENT Care Teams Clinical Trial Leader Relationship Specialty Start Date End Date Marvin Carey MD [address] [place] [phone] [email or web address] PCP - General Internal Medicine 04/06/24 Additional Source Comments The information contained in this document represents components of the legal health record. It is not the complete legal health record.[facility]
--- NOTE | 2025-03-18 06:32 | PC.NURSE ---
ems to home approx 0700.
--- NOTE | 2025-03-18 06:34 | PC.NURSE ---
pt suellen from home, had suprapubic placed 2 days ago. has chronic king as well, woke up covered in urine feels the king is clogged. 2L NC baseline, hx copd. on arrival king attached to leg was wrapped around securement device and not draining. upon straightening the king urine draining into king bag. currently not using suprapubic d/t new placement. patient had approx 300mL UO clear yellow draining into the bag. no incontinence noted. patient was given neb tx by RT, states he gives himself at least 2 neb tx at home per day. was slightly wheezy. 95% on 2L NC baseline. awaiting ems transport home. patient is agreeable with d.c plan.
--- NOTE | 2025-03-18 08:17 | PC.NURSE ---
Pt continues to have serosanguineous drainage. Actively draining around the suprapubic catheter insertion site. Provider notified.
[2025-03-18 08:48] VITALS: BP 121/59; PULSE 86; RESP 17; TEMP 36.6; O2SAT 97
== END 2025-03-18 09:00 | disposition home or self-care (01) ==
PROVIDERS: Emergency Provider Emergency Medicine; PCP Internal Medicine
DX: T83.091A Other mechanical complication of indwelling urethral catheter, initial encounter (principal); Y73.1 Therapeutic (nonsurgical) and rehabilitative gastroenterology and urology devices associated with adverse incidents; Y92.9 Unspecified place or not applicable; J44.9 Chronic obstructive pulmonary disease, unspecified; R60.1 Generalized edema
CPT/HCPCS: 94640; 99284